=== PATIENT | female | born 1980 | race Caucasian/White ===

== ENCOUNTER 2022-03-12 13:32 | Outpatient (REF) | payer OTHER, SELFPAY ==
--- NOTE | ~2022-03-12 | XR_ITS ---
EXAMINATION: XR KNEE, LEFT CLINICAL INFORMATION: Pain COMPARISON: None TECHNIQUE: Four views of the left knee. FINDINGS: Bones and soft tissues are normal. No fracture or joint effusion. Alignment is anatomic. Joint spaces are well maintained. No abnormal soft tissue calcification. XR/XR knee LT 4V IMPRESSION: Unremarkable left knee.
== END 2022-03-12 13:33 | disposition home or self-care (01) ==
LOC: HO.HMGCX 13:32
PROVIDERS: PCP Internal Medicine; Visit Provider Internal Medicine
DX: M25.562 Pain in left knee (principal)
CPT/HCPCS: 73564

== ENCOUNTER 2022-03-14 10:08 | Outpatient (REF) | payer OTHER, SELFPAY ==
[2022-03-14 11:16] LABS: MANUAL DIFF FLAG NO
[2022-03-14 11:32] LABS: Basophils Percent Auto 0.3 % (0-2); Eosinophils Absolute Auto 0.3 X10*3/uL (0.0-0.4); Eosinophils Percent Auto 4.4 % (0-4); Hematocrit 41.5 % (37.0-47.0); Hemoglobin 14.1 g/dl (12.0-16.0); Imm Gran Abs Auto 0.02 X10*3/uL (0.00-0.03); Imm Gran Pct Auto 0.3 % (0.0-0.4); Lymphocytes Percent Auto 32.7 % (20-40); Mean Corpuscular Hemoglobin 29.6 pg (27.0-33.0); Mean Corpuscular Volume 87.2 fL (80.0-98.0); Mean Platelet Volume 9.2 fL (9.4-12.3); Monocytes Absolute Auto 0.3 X10*3/uL (0.1-1.2); Monocytes Percent Auto 4.4 % (2-11); Neutrophils Absolute Auto 3.5 x10*3/uL (2.0-8.3); Neutrophils Percent Auto 57.9 % (45-73); Platelet Count 340 X10*3/uL (160-400); Red Blood Count 4.76 X10*6/uL (4.20-5.50); Red Cell Distribution Width 13.9 % (11.0-16.0); White Blood Count 6.1 X10*3/uL (4.8-10.8)
[2022-03-14 12:08] LABS: Alanine Aminotransferase 18 U/L (0-31); Albumin Level 4.6 g/dL (3.5-5.0); Alkaline Phosphatase 70 U/L (39-117); Anion Gap 16 (12-20); Aspartate Amino Transferase 19 U/L (5-31); Blood Urea Nitrogen 11 mg/dL (9-16); Calcium 9.2 mg/dL (8.4-10.2); Carbon Dioxide 24 mmol/L (22-29); Chloride 105 mmol/L (96-108); Cholesterol 254 mg/dL; Estimated Glomerular Filt Rate > 60; Glucose Fasting 108 mg/dL (60-99); HDL Cholesterol 52 mg/dL; LDL Cholesterol Calculated 140 mg/dl; Potassium 4.1 mmol/L (3.3-5.1); Sodium 141 mmol/L (135-145); Total Protein 7.8 g/dL (6.5-8.0); Triglycerides 313 mg/dL
[2022-03-14 12:33] LABS: TSH reflex Free T4 1.81 uIU/mL (0.32-4.0)
== END 2022-03-14 10:09 | disposition home or self-care (01) ==
LOC: HO.HMGCLDS 10:08
PROVIDERS: PCP Internal Medicine; Visit Provider Internal Medicine
DX: Z00.01 Encounter for general adult medical examination with abnormal findings (principal); E66.9 Obesity, unspecified; Z82.49 Family history of ischemic heart disease and other diseases of the circulatory system
CPT/HCPCS: 36415; 80053; 80061; 82306; 84443; 85025

== ENCOUNTER 2022-04-04 10:28 | Outpatient (REF) | payer OTHER, SELFPAY ==
--- NOTE | ~2022-04-04 | MM_ITS ---
EXAMINATION: MM SCREENING DIGITAL BREAST TOMOSYNTHESIS, BILATERAL CLINICAL INFORMATION: Screening. Asymptomatic. Age 41. No prior breast imaging. No known family history breast cancer. The lifetime risk of breast cancer based on the Tyrer-Cuzick Model is 8%. COMPARISON: None (current study represents initial baseline exam). TECHNIQUE: Digital breast tomosynthesis is performed in both the craniocaudal and mediolateral oblique views along with computer-aided detection (CAD). Synthesized 2D images are generated from the tomosynthesis. FINDINGS: There are scattered areas of fibroglandular density (ACR BI-RADS breast composition Category b). There are no significant masses, abnormal calcifications, or other abnormalities. There are scattered bilateral benign punctate round calcifications as well as some loosely grouped benign coarse round and rim calcifications mid 8:00 left breast. The axilla and skin contours are unremarkable. MM/MM tomosynthesis screening BI IMPRESSION: No mammographic evidence of malignancy. ASSESSMENT: BI-RADS 2: Benign RECOMMENDATION: Routine annual mammography screening. This patient's information was entered into a reminder system with a target due date for their next mammogram.
== END 2022-04-04 10:29 | disposition home or self-care (01) ==
LOC: HO.MAMMO 10:28
PROVIDERS: PCP Internal Medicine; Visit Provider Internal Medicine
DX: Z12.31 Encounter for screening mammogram for malignant neoplasm of breast (principal)
CPT/HCPCS: 77063; 77067

== ENCOUNTER 2022-05-29 08:56 | Outpatient (REF) | payer OTHER, SELFPAY ==
[2022-05-31 11:34] LABS: HPV mRNA E6/E7 rflx Not Detected (Not Detected)
== END 2022-05-29 08:57 | disposition home or self-care (01) ==
LOC: HO.LNP 08:56
PROVIDERS: PCP Internal Medicine; Visit Provider Obstetrics & Gynecology
DX: Z01.419 Encounter for gynecological examination (general) (routine) without abnormal findings (principal)
CPT/HCPCS: 87624; 88142; 99212

== ENCOUNTER 2022-05-30 17:00 | Outpatient (RCR) | payer OTHER, SELFPAY ==
--- NOTE | 2022-04-03 18:10 | MHC.PT.EP ---
[facility] [place] Office [place] Office [place] Office [address] Kelsey Gil [address] [phone] F: [phone] F: [phone] F: [phone] F: [phone] Physical Therapy Plan of Care Date of Evaluation: Date of Surgery: Diagnosis: L knee pain Assessment: Patient is pleasant 41 y.o female who is referred to PT by Dr Arelis Serrano MD with Dx of L knee pain. Her PT Dx presents as knee sprain/strain with possible bursitis from compensations, is also showing very weak L quad strength with L hamstring dominance, cannot rule out internal derangement or meniscal tear at this time. Her impairments include pain, weakness, and decreased ROM. Her functional limitations include difficulty with gait of any distance, bend/squat, stair use, and caring for toddler. She will benefit from course of skilled PT to address aforementioned impairments and functional limitations. Frequency and Duration: The patient will be seen 2x/week for 4 weeks Short Term Goals: 2 weeks Patient demonstrates increased L knee flexion to 95 degrees to restore normalized gait pattern. Patient shows independence and consistency with HEP to self manage symptoms and reduce pain to 3/10. Electrical Logger Goals: 4 weeks Patient presents with increased L knee flexion 120 degrees to be able to perform squat to low chair. Patient presents with increased L knee quad strength 4+/5 to be able to perform reciprocal stair use. Treatment Plan: Modalities to reduce pain, spasms and effusion. Manual therapy to restore motion and function. Therapeutic exercise to improve strength and flexibility. Neuromuscular re-education for posture and balance. Therapeutic activities to return to functional activities of daily living. Electronically signed by: Karie Tan, PT, DPT Please sign and return to therapist. Thank you for your referral.
--- NOTE | 2022-06-07 13:17 | MHC.PT.DC ---
[facility] [place] Office [place] Office [address] [phone] F: [phone] F: [phone] F: [phone] F: [phone] Physical Therapy Discharge Report Diagnosis: L knee pain Date of Surgery: Date of Evaluation: 04/03/22 Date of Discharge: 06/07/22 Treatments to Date: 13 Cancellations to Date: 4 No Shows to Date: 0 Discharge Status: Independent with HEP Discharge Summary: Pt still with functional limitations and pain despite making good progress with strength. Pt understands that she should return to her doctor if pain continues to limit her functionally. Electronically signed by: Delmy Florez, PT, DPT, ATC Please sign and return to therapist. Thank you for your referral.
== END 2022-06-07 13:17 | disposition home or self-care (01) ==
LOC: HO.PTCHIC 17:00
PROVIDERS: PCP Internal Medicine; Visit Provider Internal Medicine
DX: M25.562 Pain in left knee (principal)
CPT/HCPCS: 97110; 97140; 97161

== ENCOUNTER 2022-06-21 08:18 | Outpatient (REF) | payer OTHER, SELFPAY ==
[2022-06-21 11:56] LABS: Cholesterol 231 mg/dL; Glucose Fasting 110 mg/dL (60-99); HDL Cholesterol 49 mg/dL; LDL Cholesterol Calculated 131 mg/dl; Triglycerides 255 mg/dL
[2022-06-21 12:08] LABS: Estimated Average Glucose 103 mg/dL; Hemoglobin A1c % 5.2 %
== END 2022-06-21 08:19 | disposition home or self-care (01) ==
LOC: HO.HMGCLDS 08:18
PROVIDERS: PCP Internal Medicine; Visit Provider Internal Medicine
DX: E66.01 Morbid (severe) obesity due to excess calories (principal); E78.2 Mixed hyperlipidemia; R73.01 Impaired fasting glucose; E55.9 Vitamin D deficiency, unspecified
CPT/HCPCS: 36415; 80061; 82306; 82947; 83036

== ENCOUNTER → 2022-09-18 10:43 | Outpatient (BNVA) | payer OTHER, SELFPAY | PROVIDERS: PCP Internal Medicine; Visit Provider Nurse Practitioner Family | DX: G47.19 Other hypersomnia (principal); R06.83 Snoring; E66.01 Morbid (severe) obesity due to excess calories; Z68.41 Body mass index [BMI] 40.0-44.9, adult | CPT/HCPCS: 99202 ==

== ENCOUNTER 2022-09-24 11:42 | Outpatient (AMB) | payer OTHER, SELFPAY ==
[2022-09-24 12:20] VITALS: BP 128/70; PULSE 96; O2SAT 99; BMI 43.5
--- NOTE | 2022-09-24 12:20 | MHC.PC.OV ---
Vital Signs 09/24/22 12:20 Height 5 ft 1 in Weight 230 lb 2 oz BMI 43.5 BP 128/70 Blood Pressure Location Rt brachial Position Sitting Pulse 96 Pulse Source Pulse Oximeter Pulse Oximetry (%) 99 Oxygen Delivery Method Room Air Intake Visit Reasons: f/u IFG, anxiety & depression Intake Note: pt is here to follow up for her anxiety and depression, IGF Allergies latex Adverse Reaction (Verified 12/21/22 12:10) hives Medication List - Last Reconciled 09/24/22 by Arelis Serrano MD cholecalciferol (vitamin D3) 25 mcg PO DAILY duloxetine 30 mg PO DAILY duloxetine 60 mg PO DAILY hydroxyzine HCl 50 mg PO BEDTIME loratadine (Claritin) 10 mg PO DAILY magnesium oxide 400 mg PO DAILY 30 days Tobacco use date assessed: 09/24/22 HPI f/u IFG, anxiety & depression HPI Details 41-year-old lady here today for follow-up on her prediabetes, anxiety and depression. Last hemoglobin A1c in June 2022 was within normal limits. She is currently taking duloxetine 90 mg daily and hydroxyzine 50 mg at bedtime which has been helping control her anxiety and depression . [facility], and home sleep study ordered. Patient also was given prescription for magnesium 400 mg once a day for leg cramp which has been helping Complains of intermittent episodes of lightheadedness accompanied by tinnitus in both ears and intermittent episodes of hearing loss. Would like to be checked for Meniere's disease. Has a painful skin lesion on her mid back that she would like to have removed, kept getting snagged on her bra [facility] Medical History Environmental and seasonal allergies Tinnitus of both ears Knee pain Excessive daytime sleepiness Loud snoring Vitamin D deficiency Impaired fasting glucose Mixed dyslipidemia Morbid obesity Hiatal hernia with gastroesophageal reflux Family history of premature CAD Annual visit for general adult medical examination with abnormal findings Anxiety and depression Surgical History H/O endoscopy H/O wisdom tooth extraction Family History Father Substance use disorder Mental health disorder Alcoholism Myocardial infarction acute, Onset Age: 55 Depression Maternal Uncle Testicular cancer Social History Household Members: Spouse and Children Housing: House Alcohol intake: current Alcohol intake frequency: does not drink Patient Tobacco Use Status: Never used Tobacco e-Cigarette/Vaping Use: Never Used Advance Directives: No Advance Directives Information Provided: Yes Current occupational status: unemployed and other Sexual orientation: Straight/Heterosexual Gender identity: Female Cognitive needs: No Hearing needs: No Vision needs: Yes Questionnaire PHQ-9 Over the last 2 weeks, how often have you been bothered by any of the following problems? 1. Little interest or pleasure in doing things: not at all 2. Feeling down, depressed, or hopeless: not at all 3. Trouble falling or staying asleep, or sleeping too much: several days 4. Feeling tired or having little energy: several days 5. Poor appetite or overeating: not at all 6. Feeling bad about yourself - or that you are a failure or have let yourself or your family down: not at all 7. Trouble concentrating on things, such as reading the newspaper or watching television: not at all 8. Moving or speaking so slowly that other people could have noticed. Or the opposite - being so fidgety or restless that you have been moving around a lot more than usual: not at all 9. Thoughts that you would be better off or of hurting yourself in some way: not at all Total score: 2 Depression Screening Interpretation: Negative 52685 - PHQ-9 Billing: Yes Source: Developed by Drs. Charles Gerardo, Horacio Colón and colleagues, with an educational ventura from [employer]. Thrive Questionnaire Date Thrive assessed: 06/26/22 SAMMY-7 AMB Questionnaire SAMMY-7 Date SAMMY - 7 assessed: 06/26/22 Source: Developed by Drs. Charles Gerardo, Horacio Colón and colleagues, with an educational ventura from [employer]. Review of Systems Const Denies body aches, Denies frequent falls, Denies headache(s) and Denies weakness Eyes Denies change in vision ENT Reports as per HPI, Denies headache(s), Denies nasal congestion, Denies nasal discharge and Denies sore throat Card Denies chest pain, Denies lightheadedness, Denies palpitations and Denies dyspnea Resp Denies chest congestion, Denies cough, Denies dyspnea and Denies wheezing GI Denies abdominal pain, Denies change in bowel habits and Denies heartburn Denies urinary frequency, Denies dysuria and Denies urinary urgency Musc Reports as per HPI Skin/Breast Reports as per HPI Neuro Reports as per HPI, Denies frequent falls, Denies headache(s) and Denies weakness Psych Reports no additional complaints Endo Denies polydipsia, Denies polyuria and Denies palpitations Aller/Immun Denies seasonal rhinorrhea and Denies wheezing Physical exam (Primary Care) Vital Signs: Last Vital Signs Pulse 96 09/24/22 12:20 BP 128/70 09/24/22 12:20 Pulse Ox 99 09/24/22 12:20 Oxygen Delivery Method Room Air 09/24/22 12:20 BMI result Body Mass Index 43.5 BMI Assessment/Plan discussion: High BMI High, discussed plan: lifestyle, weight reduction, dietary and physical activity Tobacco/Smoking Status: Tobacco use Status Tobacco use date assessed 09/24/22 09/24/22 12:26 Patient Tobacco Use Status Never used Tobacco 09/24/22 12:22 e-Cigarette/Vaping Use Never Used 09/24/22 12:22 Depression Screening Interpretation: Negative Thrive Assessment: Date of Thrive Assessment Date Thrive assessed 06/26/22 09/24/22 12:22 Const Other: Alert oriented x3, morbidly obese, no acute cardiorespiratory distress noted Orientation/consciousness: patient oriented x3 HENMT Ears: external ears normal, TM normal on the right and EAC's normal General nose exam: Normal external nose present and No nasal discharge present Face and sinus: Yes face symmetric Mouth: Normal oral and palatal mucosa present, oropharynx normal and moist mucous membranes Eyes General: appearance normal, both eyes and all related structures Neck Other: Supple, no lymphadenopathy, thyroid gland nonpalpable Resp Auscultation: clear to auscultation bilaterally Cardio Other: S1-S2 present regular rate and rhythm GI Inspection: Yes normal to inspection Palpation (GI): Soft to palpation, nontender, no guarding and no masses Skin Other: Large skin tag on mid back Neuro General: patient oriented x3, gait normal, tone normal, moves all extremities, Normal light touch and pain sensation, no focal motor deficits and CN's II-XI intact bilaterally Extrem General: Yes full ROM, Yes no joint enlargement, Yes no clubbing, cyanosis or edema, Yes no calf tenderness and Yes normal gait Psych Appearance: grossly normal and well kempt Mental Status: mental status grossly normal Speech and movement: Normal speech and movement present Affect: normal affect Attitude: cooperative Thought process: Normal thought process present Thought content: Normal thought content present Assessment and Plan Assessment & Plan (1) Impaired fasting glucose: Code(s): R73.01 - Impaired fasting glucose Plan: . Impaired glucose metabolism O2 at risk for developing diabetes mellitus type 2, as well as heart attack and stroke later on. Lifestyle changes at just weight loss, healthy eating habits, and regular exercise are important, and can prevent the progression to diabetes (2) Anxiety and depression: Code(s): F41.9 - Anxiety disorder, unspecified; F32.A - Depression, unspecified Plan: Continue with duloxetine (3) Mixed dyslipidemia: Code(s): E78.2 - Mixed hyperlipidemia Plan: Continue adherence to healthy eating habits, getting regular exercise. (4) Tinnitus of both ears: Code(s): H93.13 - Tinnitus, bilateral Plan: ENT consult ordered (5) Impaired hearing: Code(s): H91.90 - Unspecified hearing loss, unspecified ear Qualifiers: Hearing loss type: unspecified Laterality: bilateral Qualified Code(s): H91.93 - Unspecified hearing loss, bilateral Plan: ENT consult ordered (6) Intermittent lightheadedness: Code(s): R42 - Dizziness and giddiness (7) Skin lesion of back: Code(s): L98.9 - Disorder of the skin and subcutaneous tissue, unspecified Plan: Referred to general surgery for excision of skin tag Orders: Orders Hemoglobin A1c 11/20/22 R73.01 - Impaired fasting glucose, E78.2 - Mixed hyperlipidemia Lipid Panel 11/20/22 R73.01 - Impaired fasting glucose, E78.2 - Mixed hyperlipidemia Referrals Ear/Nose/Throat Referral H93.13 - Tinnitus, bilateral, H91.90 - Unspecified hearing loss, unspecified ear, R42 - Dizziness and giddiness General Surgery Referral L98.9 - Disorder of the skin and subcutaneous tissue, unspecified Coding Level of Care Code Est Pt Level 4 (46788) Diagnoses Impaired fasting glucose R73.01 Anxiety and depression F41.9; F32.A Mixed dyslipidemia E78.2 Tinnitus of both ears H93.13 Bilateral hearing loss, unspecified hearing loss type H91.93 Hearing loss type: unspecified Laterality: bilateral Intermittent lightheadedness R42 Skin lesion of back L98.9
== END 2022-09-24 13:06 | disposition home or self-care (01) ==
PROVIDERS: PCP Internal Medicine; Visit Provider Internal Medicine
DX: R73.01 Impaired fasting glucose (principal); F41.9 Anxiety disorder, unspecified; F32.A Depression, unspecified; E78.2 Mixed hyperlipidemia; H93.13 Tinnitus, bilateral; H91.93 Unspecified hearing loss, bilateral; R42 Dizziness and giddiness; L98.9 Disorder of the skin and subcutaneous tissue, unspecified
CPT/HCPCS: 99214

== ENCOUNTER 2022-10-01 09:21 | Outpatient (REF) | payer OTHER, SELFPAY | END 2022-10-01 09:22 | disposition home or self-care (01) | LOC: HO.LNP 09:21 | PROVIDERS: PCP Internal Medicine; Referring Provider Internal Medicine; Visit Provider Surgery | DX: I78.1 Nevus, non-neoplastic (principal) | CPT/HCPCS: 11401; 11402; 88305; 99202 ==

== ENCOUNTER → 2022-10-09 10:52 | Outpatient (BNVA) | payer OTHER, SELFPAY | PROVIDERS: PCP Internal Medicine; Visit Provider Surgery | DX: Z09 Encounter for follow-up examination after completed treatment for conditions other than malignant neoplasm (principal) | CPT/HCPCS: 99212 ==

== ENCOUNTER → 2022-10-11 09:10 | Outpatient (REF) | payer OTHER, SELFPAY | LOC: HO.SL 09:10 | PROVIDERS: PCP Internal Medicine; Visit Provider Nurse Practitioner Family | DX: G47.33 Obstructive sleep apnea (adult) (pediatric) (principal); E66.01 Morbid (severe) obesity due to excess calories; R06.83 Snoring | CPT/HCPCS: 95806 ==

== ENCOUNTER → 2022-11-11 20:30 | Outpatient (REF) | payer OTHER, SELFPAY | LOC: HO.SL 20:30 | PROVIDERS: PCP Internal Medicine; Visit Provider Nurse Practitioner Family | DX: G47.33 Obstructive sleep apnea (adult) (pediatric) (principal) | CPT/HCPCS: 95811 ==

== ENCOUNTER 2022-11-13 12:55 | Outpatient (AMB) | payer OTHER, SELFPAY ==
--- NOTE | 2022-11-13 12:59 | MHC.OFFWIV ---
Intake Vital Signs 11/13/22 13:03 BP 150/100 H Blood Pressure Location Rt brachial Position Sitting Pulse 96 Pulse Source Pulse Oximeter Temp 97.6 F Temp Source Temporal Artery Scan Pulse Oximetry (%) 97 Oxygen Delivery Method Room Air Intake Visit Reasons: EST/pain in back while breathing Intake Note: Patient here because over the past several days she has noticed some upper back pain when breathing. Patient Tobacco Use Status: Never used Tobacco Allergies latex Adverse Reaction (Verified 11/13/22 13:54) hives Medication List - Last Reconciled 11/13/22 by Redd Sheehan MD cholecalciferol (vitamin D3) 25 mcg PO DAILY duloxetine 30 mg PO DAILY duloxetine 60 mg PO DAILY hydroxyzine HCl 50 mg PO BEDTIME loratadine (Claritin) 10 mg PO DAILY magnesium oxide 400 mg PO DAILY 30 days Do you need a note to return to daycare/school/sports/work: No HPI EST/pain in back while breathing HPI Details 42-year-old female presents to the office for a sick visit. Patient is reporting pain in the upper back when she takes a deep breath. Symptoms of congestion and headache present. No fevers or chills. [facility] Medical History Annual visit for general adult medical examination with abnormal findings Anxiety and depression Excessive daytime sleepiness Family history of premature CAD Hiatal hernia with gastroesophageal reflux Impaired fasting glucose Knee pain Loud snoring Mixed dyslipidemia Morbid obesity Tinnitus of both ears Vitamin D deficiency Surgical History H/O endoscopy H/O wisdom tooth extraction Family History Father Substance use disorder Mental health disorder Alcoholism Myocardial infarction acute, Onset Age: 55 Depression Maternal Uncle Testicular cancer Social History Household Members: Spouse and Children Housing: House Alcohol intake: current Alcohol intake frequency: holidays/special occasions only Patient Tobacco Use Status: Never used Tobacco e-Cigarette/Vaping Use: Never Used Current occupational status: unemployed and other Sexual orientation: Straight/Heterosexual Gender identity: Female Cognitive needs: No Hearing needs: No Vision needs: Yes Physical Exam Vital Signs: Last Vital Signs Temp 97.6 F 11/13/22 13:03 Pulse 96 11/13/22 13:03 BP 150/100 H 11/13/22 13:03 Pulse Ox 97 11/13/22 13:03 Oxygen Delivery Method Room Air 11/13/22 13:03 Const General: cooperative and healthy appearing Nutritional Appearance: well nourished Orientation/consciousness: patient oriented x3 Limitations: no limitations HEENT Head: Yes normal to inspection Eyes General: appearance normal, both eyes and all related structures Neck Neck: Yes normal visual inspection Chest Chest palpation & inspection: normal palpation of entire chest wall Resp Effort & Inspection: normal respiratory effort Back/Spine/Pelvis Other: No spinal tenderness, no paraspinal spasm. Discomfort over the right scapula. Neuro General: patient oriented x3 Assessment & Plan Assessment & Plan (1) Upper back pain: Code(s): M54.9 - Dorsalgia, unspecified Plan: Chest x-ray was personally reviewed by me. Meloxicam called in. Blood pressure was slightly raised. Patient was notified of the same. Advised her to check her blood pressures periodically and follow-up with her primary care. Orders: Orders XR chest 2V 11/13/22 M54.9 - Dorsalgia, unspecified Medications: New meloxicam 15 mg PO DAILY 14 tabs 0RF Coding Level of Care Code Est Pt Level 4 (34972) Diagnoses Upper back pain M54.9
[2022-11-13 13:03] VITALS: BP 150/100; PULSE 96; TEMP 36.4; O2SAT 97
== END 2022-11-13 14:28 | disposition home or self-care (01) ==
PROVIDERS: PCP Internal Medicine; Visit Provider Internal Medicine
DX: M54.9 Dorsalgia, unspecified (principal)
CPT/HCPCS: 99214

== ENCOUNTER 2022-11-13 13:54 | Outpatient (REF) | payer OTHER, SELFPAY ==
--- NOTE | ~2022-11-13 | XR_ITS ---
EXAMINATION: XR CHEST CLINICAL INFORMATION: Back pain. COMPARISON: None available. TECHNIQUE: 2 views of the chest were obtained. FINDINGS: No significant abnormality is noted involving the heart, lungs, mediastinum, bony thorax or soft tissues. XR/XR chest 2V IMPRESSION: No acute cardiopulmonary process.
== END 2022-11-13 13:55 | disposition home or self-care (01) ==
LOC: HO.HMGCX 13:54
PROVIDERS: PCP Internal Medicine; Visit Provider Internal Medicine
DX: M54.9 Dorsalgia, unspecified (principal)
CPT/HCPCS: 71046

== ENCOUNTER 2022-11-23 15:49 | Outpatient (AMB) | payer OTHER, SELFPAY ==
--- NOTE | 2022-11-23 15:50 | AM.OFFWIN_ITS ---
Intake Vital Signs 11/23/22 15:51 Height 5 ft 1 in BP 130/90 H Blood Pressure Location Rt brachial Position Sitting Pulse 98 Pulse Source Pulse Oximeter Temp 96.2 F L Temp Source Temporal Artery Scan Pulse Oximetry (%) 100 Oxygen Delivery Method Room Air Intake Visit Reasons: EP Cut on RT pinky finger Intake Note: Pt is here c/o cutting her finger witha marcy can. pt requesting tdpa vaccine. Patient Tobacco Use Status: Never used Tobacco Allergies latex Adverse Reaction (Verified 11/25/22 10:03) hives Medication List - Last Reconciled 11/25/22 by Redd Sheehan MD cholecalciferol (vitamin D3) 25 mcg PO DAILY duloxetine 30 mg PO DAILY duloxetine 60 mg PO DAILY hydroxyzine HCl 50 mg PO BEDTIME loratadine (Claritin) 10 mg PO DAILY magnesium oxide 400 mg PO DAILY 30 days meloxicam 15 mg PO DAILY Do you need a note to return to daycare/school/sports/work: No HPI EP Cut on RT pinky finger HPI Details 42-year-old female presents to the office for a sick visit. Patient poked her right hand 5th digit with the marcy knife. Small wound which is not bleeding anymore. She would like a tetanus shot. [facility] Medical History Annual visit for general adult medical examination with abnormal findings Anxiety and depression Excessive daytime sleepiness Family history of premature CAD Hiatal hernia with gastroesophageal reflux Impaired fasting glucose Knee pain Loud snoring Mixed dyslipidemia Morbid obesity Tinnitus of both ears Vitamin D deficiency Surgical History H/O endoscopy H/O wisdom tooth extraction Family History Father Substance use disorder Mental health disorder Alcoholism Myocardial infarction acute, Onset Age: 55 Depression Maternal Uncle Testicular cancer Social History Household Members: Spouse and Children Housing: House Alcohol intake: current Alcohol intake frequency: holidays/special occasions only Patient Tobacco Use Status: Never used Tobacco e-Cigarette/Vaping Use: Never Used Current occupational status: unemployed and other Sexual orientation: Straight/Heterosexual Gender identity: Female Cognitive needs: No Hearing needs: No Vision needs: Yes Physical Exam Vital Signs: Last Vital Signs Temp 96.2 F L 11/23/22 15:51 Pulse 98 11/23/22 15:51 BP 130/90 H 11/23/22 15:51 Pulse Ox 100 11/23/22 15:51 Oxygen Delivery Method Room Air 11/23/22 15:51 Extrem Other: Hand: 5th digit: Tiny puncture wound on the volar surface. Assessment & Plan Assessment & Plan (1) Open wound, hand: Code(s): S61.409A - Unspecified open wound of unspecified hand, initial encounter Plan: Tetanus shot provided. Orders: Orders TDaP Immunization 11/23/22 Z23 - Encounter for immunization Coding Level of Care Code Est Pt Level 3 (20247) Diagnoses Open wound, hand S61.409A
[2022-11-23 15:51] VITALS: BP 130/90; PULSE 98; TEMP 35.7; O2SAT 100
== END 2022-11-23 17:00 | disposition home or self-care (01) ==
PROVIDERS: PCP Internal Medicine; Visit Provider Internal Medicine
DX: S60.946A Unspecified superficial injury of right little finger, initial encounter (principal); Z23 Encounter for immunization
CPT/HCPCS: 90471; 90715; 99213

== ENCOUNTER 2022-12-21 11:16 | Outpatient (AMB) | payer OTHER, SELFPAY ==
--- NOTE | 2022-12-21 11:53 | MHC.PC.OV ---
Vital Signs 12/21/22 12:02 Height 5 ft 1 in Weight 227 lb BMI 42.9 BP 126/80 Blood Pressure Location Lt brachial Position Sitting Pulse 92 Pulse Source Pulse Oximeter Pulse Oximetry (%) 99 Oxygen Delivery Method Room Air Intake Visit Reasons: 3 month follow up Intake Note: Pt is here today for her 3 months Allergies latex Adverse Reaction (Verified 12/21/22 12:10) hives Medication List - Last Reconciled 12/21/22 by Arelis Serrano MD cholecalciferol (vitamin D3) 25 mcg PO DAILY duloxetine 30 mg PO DAILY duloxetine 60 mg PO DAILY hydroxyzine HCl 50 mg PO BEDTIME loratadine (Claritin) 10 mg PO DAILY magnesium oxide 400 mg PO DAILY 30 days Tobacco use date assessed: 12/21/22 Dental Screening Dental Screen Date: 12/21/22 Did you have a dental visit in the last 12 months?: No Was dental information given to patient?: No HPI 3 month follow up HPI Details 42-year-old lady with pre diabetes, here today for follow-up. She has anxiety/ depression, currently controlled with duloxetine 90 mg daily, and occasional takes hydroxyzine as needed for anxiety attacks. Patient however complains of feeling very drowsy when taking itx. She has also been having nasal congestion and runny nose, not well controlled anymore with taking loratadine 10 mg daily. [facility] Medical History Annual visit for general adult medical examination with abnormal findings Anxiety and depression Environmental and seasonal allergies Excessive daytime sleepiness Family history of premature CAD Hiatal hernia with gastroesophageal reflux Impaired fasting glucose Knee pain Loud snoring Mixed dyslipidemia Morbid obesity Tinnitus of both ears Vitamin D deficiency Surgical History H/O endoscopy H/O wisdom tooth extraction Family History Father Substance use disorder Mental health disorder Alcoholism Myocardial infarction acute, Onset Age: 55 Depression Maternal Uncle Testicular cancer Social History Household Members: Spouse and Children Housing: House Alcohol intake: current Alcohol intake frequency: does not drink Patient Tobacco Use Status: Never used Tobacco Smoked in Last 30 Days: No e-Cigarette/Vaping Use: Never Used Use of substances other than those prescribed or required for medical reasons: No Advance Directives: No Advance Directives Information Provided: No Current occupational status: unemployed and other Sexual orientation: Straight/Heterosexual Gender identity: Female Cognitive needs: No Hearing needs: No Vision needs: Yes Questionnaire PHQ-9 Over the last 2 weeks, how often have you been bothered by any of the following problems? 1. Little interest or pleasure in doing things: not at all 2. Feeling down, depressed, or hopeless: not at all 3. Trouble falling or staying asleep, or sleeping too much: several days 4. Feeling tired or having little energy: several days 5. Poor appetite or overeating: not at all 6. Feeling bad about yourself - or that you are a failure or have let yourself or your family down: not at all 7. Trouble concentrating on things, such as reading the newspaper or watching television: not at all 8. Moving or speaking so slowly that other people could have noticed. Or the opposite - being so fidgety or restless that you have been moving around a lot more than usual: not at all 9. Thoughts that you would be better off or of hurting yourself in some way: not at all Total score: 2 Depression Screening Interpretation: Negative Source: Developed by Drs. Charles Gerardo, Negrita Kunz, Horacio Interiano and colleagues, with an educational ventura from [employer]. Thrive Questionnaire Date Thrive assessed: 12/21/22 SAMMY-7 AMB Questionnaire SAMMY-7 Date SAMMY - 7 assessed: 12/21/22 Feeling nervous, anxious, or on edge: 0 = Not at all Not being able to stop or control worryin = Not at all Worrying too much about different things: 1 = Several days Trouble relaxin = Not at all Being so restless that it is hard to sit still: 0 = Not at all Becoming easily annoyed or irritable: 0 = Not at all Feeling afraid as if something awful might happen: 0 = Not at all Total SAMMY-7 score (0-4 normal; 5-9 mild; 10-14 moderate; 15-21 severe): 1 Source: Developed by Drs. Charles Gerardo, Negrita Kunz, Horacio Interiano and colleagues, with an educational ventura from [employer]. Review of Systems Const Denies headache(s) and Denies weakness Eyes Denies change in vision ENT Denies headache(s), Denies nasal congestion, Denies nasal discharge and Denies sore throat Card Denies chest pain, Denies lightheadedness, Denies palpitations and Denies dyspnea Resp Denies chest congestion, Denies cough, Denies dyspnea and Denies wheezing GI Denies abdominal pain, Denies change in bowel habits and Denies heartburn Denies urinary frequency, Denies dysuria and Denies urinary urgency Neuro Denies headache(s) and Denies weakness Psych Reports no additional complaints Endo Denies polydipsia, Denies polyuria and Denies palpitations Aller/Immun Denies wheezing Physical exam (Primary Care) Vital Signs: Last Vital Signs Pulse 92 12/21/22 12:02 BP 126/80 12/21/22 12:02 Pulse Ox 99 12/21/22 12:02 Oxygen Delivery Method Room Air 12/21/22 12:02 BMI result Body Mass Index 42.9 BMI Assessment/Plan discussion: High BMI High, discussed plan: lifestyle, weight reduction, dietary and physical activity Tobacco/Smoking Status: Tobacco use Status Tobacco use date assessed 12/21/22 12/21/22 12:01 Patient Tobacco Use Status Never used Tobacco 12/21/22 11:54 e-Cigarette/Vaping Use Never Used 12/21/22 11:54 Depression Screening Interpretation: Negative Thrive Assessment: Date of Thrive Assessment Date Thrive assessed 06/26/22 12/21/22 11:54 Const Other: Alert oriented x3, morbidly obese, no acute cardiorespiratory distress noted Orientation/consciousness: patient oriented x3 HENMT Ears: external ears normal, TM's normal bilaterally and EAC's normal General nose exam: Normal external nose present and No nasal discharge present Face and sinus: Yes face symmetric Mouth: tongue normal, oropharynx normal and moist mucous membranes Eyes General: appearance normal, both eyes and all related structures Neck Other: Supple, no lymphadenopathy, thyroid gland nonpalpable Chest Breast/axilla palpation: normal palpation of the breasts and normal palpation of the axillae Resp Auscultation: clear to auscultation bilaterally Cardio Other: S1-S2 present regular rate and rhythm GI Inspection: Yes normal to inspection and Yes abdominal wall ecchymosis Palpation (GI): Soft to palpation, nontender, no guarding and no masses Neuro General: patient oriented x3, gait normal, tone normal, moves all extremities, Normal light touch and pain sensation, no focal motor deficits and CN's II-XI intact bilaterally Extrem General: Yes full ROM, Yes no joint enlargement, Yes no clubbing, cyanosis or edema, Yes no calf tenderness and Yes normal gait Psych Appearance: grossly normal and well kempt Mental Status: mental status grossly normal Speech and movement: Normal speech and movement present Affect: normal affect Attitude: cooperative Thought process: Normal thought process present Thought content: Normal thought content present Results AMB Hemoglobin A1c AMB Hemoglobin A1c 4.7 % Last Edit by Miracle Monreal CMA on 12/21/22 12:14 Results Reviewed Results Reviewed: Laboratory Last Values Hgb A1c (Clinic) 4.7 % (4.0-6.0) 12/21/22 12:01 Assessment and Plan Assessment & Plan (1) Impaired fasting glucose: Code(s): R73.01 - Impaired fasting glucose Plan: Hemoglobin A1c today is at 4.7% Your fasting blood sugars were elevated above 100 mg/dL. Impaired glucose metabolism O2 at risk for developing diabetes mellitus type 2, as well as heart attack and stroke later on. Lifestyle changes at just weight loss, healthy eating habits, and regular exercise are important, and can prevent the progression to diabetes (2) Anxiety and depression: Code(s): F41.9 - Anxiety disorder, unspecified; F32.A - Depression, unspecified Plan: Continue duloxetine 90 mg daily, and continue with hydroxyzine but dose decreased to 25 mg at bedtime as needed for acute anxiety attacks (3) Environmental and seasonal allergies: Code(s): J30.89 - Other allergic rhinitis Plan: Continue loratadine 10 mg daily, prescription sent for as Azelastine nasal spray, 1 spray per nostril twice a day as needed Orders: Orders AMB Hemoglobin A1c 12/21/22 R73.01 - Impaired fasting glucose Medications: New azelastine administer into each nostril 1 spray intranasal BID PRN 30 mL 0RF nasal congestion Changed From hydroxyzine HCl 50 mg PO BEDTIME 90 tabs 1RF To hydroxyzine HCl 25 mg PO BEDTIME PRN 90 tabs 1RF anxiety Refilled duloxetine 30 mg PO DAILY 90 caps 3RF Coding Level of Care Code Est Pt Level 4 (14510) Diagnoses Impaired fasting glucose R73.01 Anxiety and depression F41.9; F32.A Environmental and seasonal allergies J30.89
[2022-12-21 12:02] VITALS: BP 126/80; PULSE 92; O2SAT 99; BMI 42.9
== END 2022-12-21 12:21 | disposition home or self-care (01) ==
PROVIDERS: PCP Internal Medicine; Visit Provider Internal Medicine
DX: R73.01 Impaired fasting glucose (principal)
CPT/HCPCS: 83036; 99214

== ENCOUNTER 2022-12-21 14:49 | Emergency (ER) | payer OTHER, SELFPAY ==
--- NOTE | ~2022-12-21 | CT_ITS ---
EXAMINATION: CT ABDOMEN AND PELVIS WITHOUT CONTRAST CLINICAL INFORMATION: Left flank pain COMPARISON: None available. TECHNIQUE: Multidetector volumetric imaging was performed from the superior aspect of the liver through the pubic symphysis. Sagittal and coronal reformatted images were obtained on the technologist's workstation. This CT examination was performed using dose optimization techniques as appropriate, variously including the following: *Automated exposure control *Adjustment of mA and/or kV according to patient size (this includes techniques or standardized protocols for targeted exams where dose is matched to indication/reason for exam; i.e. extremities or head) *Use of iterative reconstruction technique DLP: 727 mGy-cm FINDINGS: LUNG BASES: The visualized lung bases are unremarkable. LIVER, GALLBLADDER, AND BILIARY TREE: The liver is normal in size, shape, and attenuation. No focal hepatic lesion or biliary ductal dilatation is present. The gallbladder is unremarkable with no evidence of radiopaque gallstones, gallbladder wall thickening, or obvious pericholecystic inflammatory changes. PANCREAS: Unremarkable. SPLEEN: Unremarkable. ADRENAL GLANDS: Unremarkable. KIDNEYS AND URETERS: The kidneys are normal in size, shape, and attenuation. No hydronephrosis, hydroureter, or calculi seen. No perinephric stranding. BLADDER: Unremarkable. GASTROINTESTINAL TRACT: Mild diverticulosis. No evidence of diverticulitis. The small and large bowel are unremarkable. The appendix is unremarkable. ABDOMINAL WALL: No significant hernia is appreciated. LYMPH NODES: Normal. VASCULAR: Unremarkable. PELVIC VISCERA: Unremarkable. OSSEOUS STRUCTURES: Unremarkable. CT/CT abdomen pelvis wo IV con IMPRESSION: Mild diverticulosis. No evidence of diverticulitis. No stone or hydronephrosis seen. Fleischner guidelines were followed.
--- NOTE | ~2022-12-21 | XR_ITS ---
EXAMINATION: XR HIP, LEFT CLINICAL INFORMATION: Sudden shooting pain COMPARISON: None available. TECHNIQUE: Two views of the left hip. Single view of the pelvis FINDINGS: No acute visible fracture or dislocation. Joint spaces and alignment are maintained. Soft tissues are unremarkable. XR/XR hip LT w PEL1V IMPRESSION: No acute visible fracture or dislocation.
--- NOTE | ~2022-12-21 | XR_ITS ---
EXAMINATION: XR LUMBOSACRAL SPINE CLINICAL INFORMATION: Pain COMPARISON: None available. TECHNIQUE: Three views of the lumbosacral spine. FINDINGS: There may be a transitional vertebral body segment or 6 lumbar-type vertebral bodies. For the purposes of this dictation, the first nonrib-bearing vertebral body is designated as L1 and the transitional segment designated inferiorly. There is sacralization of the bilateral transitional transverse processes. Bone alignment is normal. No fracture or dislocation. Disc spaces are normal. Paraspinal soft tissues are normal. XR/XR lumbar spine 2-3V IMPRESSION: Unremarkable examination.
[2022-12-21 15:00] VITALS: BP 192/125; PULSE 83; RESP 18; TEMP 36.7; O2SAT 98; BMI 42.9
--- NOTE | 2022-12-21 15:00 | ED.GENADULT ---
HPI - General Adult General Chief complaint: Abdominal Pain Stated complaint: sharp lower back pain to legs Time Seen by Provider: 12/21/22 16:13 Source: patient and RN notes reviewed Mode of arrival: ambulatory Limitations: no limitations History of Present Illness HPI narrative: Patient is a 42 year old female who presents to the ED today due to lower left back and leg pain. She reports that the pain started this morning and progressively intensified over the span of a couple of hours. She states that the pain starts at her lower left back and radiates down the outer hip and ends at her left knee. She experienced sciatica 15 years ago when she was with her second child and reports that the pain she experiences today is similar to the the pain she previously felt. She describes it as a pinching sensation and finds it difficult to walk. Patient denies any trauma, pushing, pulling, or lifting any heavy objects prior to the onset of her symptoms. She also denies taking any OTC medications or applying any topical gels to alleviate her symptoms. Patient denies any difficulty urinating or urinary frequency Related Data Home Medications Medication Instructions Recorded Confirmed cholecalciferol (vitamin D3) 25 25 mcg PO DAILY 05/29/22 11/25/22 mcg (1,000 unit) capsule loratadine 10 mg tablet (Claritin) 10 mg PO DAILY 09/18/22 11/25/22 Previous Rx's Medication Instructions Recorded magnesium oxide 400 mg PO DAILY 30 days #30 tabs 09/18/22 duloxetine 60 mg capsule,delayed 60 mg PO DAILY #90 caps 12/13/22 release azelastine 137 mcg (0.1 %) nasal 1 spray intranasal BID PRN nasal 12/21/22 spray aerosol congestion #30 mL dexamethasone 4 mg tablet 4 mg PO BID #6 tabs 12/21/22 duloxetine 30 mg capsule,delayed 30 mg PO DAILY #90 caps 12/21/22 release hydroxyzine HCl 25 mg tablet 25 mg PO BEDTIME PRN anxiety #90 12/21/22 tabs methocarbamol 500 mg tablet 500 mg PO QID PRN muscle spasm #20 12/21/22 tabs oxycodone 5 mg tablet 5 mg PO Q6H PRN severe pain (scale 12/21/22 score 7-10) #14 tabs Allergies Allergy/AdvReac Type Severity Reaction Status Date / Time latex AdvReac hives Verified 12/21/22 12:10 Review of Systems Constitutional: Constitutional: Denies fever(s) Cardiovascular: Cardiovascular: Denies chest pain and Denies dyspnea Respiratory: Respiratory: Denies dyspnea Gastrointestinal: Gastrointestinal: Denies abdominal pain Genitourinary: Genitourinary: Denies difficulty voiding Musculoskeletal: Musculoskeletal: Reports back pain and Reports radiating pain into limb PMFSH Past Medical History Medical History (Updated 12/21/22 @ 20:29 by Ramin Newton) Annual visit for general adult medical examination with abnormal findings Anxiety and depression Environmental and seasonal allergies Excessive daytime sleepiness Family history of premature CAD Hiatal hernia with gastroesophageal reflux Impaired fasting glucose Knee pain Loud snoring Mixed dyslipidemia Morbid obesity Tinnitus of both ears Vitamin D deficiency Surgical History (Updated 10/09/22 @ 11:34 by Juma Castillo MD) H/O endoscopy H/O wisdom tooth extraction Family History Family History Father Substance use disorder Mental health disorder Alcoholism Myocardial infarction acute, Onset Age: 55 Depression Maternal Uncle Testicular cancer Social History Social History Household Members: Spouse and Children Housing: House Alcohol intake: current Alcohol intake frequency: does not drink Patient Tobacco Use Status: Never used Tobacco Smoked in Last 30 Days: No e-Cigarette/Vaping Use: Never Used Use of substances other than those prescribed or required for medical reasons: No Advance Directives: No Advance Directives Information Provided: No Current occupational status: unemployed and other Sexual orientation: Straight/Heterosexual Gender identity: Female Cognitive needs: No Hearing needs: No Vision needs: Yes Physical Exam ED Vital Signs: Vital Signs - 24 hr 12/21/22 15:00 12/21/22 15:35 12/21/22 16:47 Temperature 98.0 F 98.7 F Pulse Rate 83 89 80 Respiratory Rate 18 18 16 Blood Pressure 192/125 H 204/115 H 166/102 H Pulse Oximetry 98 97 97 Oxygen Delivery Method Room Air Room Air Room Air 12/21/22 18:44 Temperature 98.8 F Pulse Rate 78 Respiratory Rate 16 Blood Pressure 148/109 H Pulse Oximetry 97 Oxygen Delivery Method Room Air BMI result Body Mass Index 42.9 Const General: healthy appearing, no acute distress, alert and awake Nutritional Appearance: well nourished Orientation/consciousness: patient oriented x3 [facility] Head: Yes normocephalic and Yes atraumatic Eyes Eyelids: Yes eyelids normal Conjunctivae: conjunctivae normal Sclerae: sclerae normal Corneas: corneas normal Pupils: Equal, round and reactive pupils present EOM: EOMs intact bilaterally Neck Neck: Yes full ROM Resp Effort & Inspection: normal respiratory effort, able to speak in complete sentences and not labored GI Inspection: No distended Palpation (GI): Soft to palpation, not firm, Tenderness to palpation present (GI) in the LLQ; not in the RLQ, not in the LUQ and not in the RUQ, no guarding and not rigid Back/Spine/Pelvis Other: Patient has left lumbar paraspinous tenderness. No vertebral tenderness, no step-off deformities. Positive straight leg raise on left Skin General skin exam: no rashes or lesions noted and elasticity normal Neuro General: patient oriented x3 Cranial nerves: Yes Equal, round and reactive pupils present and Yes Bilaterally intact EOM present Cognition (Neuro): normal cognition Extrem Other: Moving all extremities well without any obvious deformities Course Course Course Narrative: This is an RME: Additional HPI, ROS, PE not included below will be deferred to primary provider. This is a 41-smxy-phv-female, with a hx of sciatica, presenting to the emergency department with complaints of left lower back pain x 2 hours. Patient reports that she is unable to stand due to the pain. Endorsing nausea, not sure if it is due to pain. No urinary symptoms. VSS. Appears uncomfortable - BP 192/125. Left lower SI joint pain/hip Plan: Xray left hip ordered. Reevaluation(s) Reevaluation #1: Patient has a small amount of occult blood in the urine, a CT scan of the abdomen pelvis was ordered. The patient also in significant pain will treat with morphine IM Time: 18:38 Reevaluation #2: Patient reports she finally receive some relief after morphine IM. The patient is stable for discharge. Discussed all imaging results with the patient Time: 20:27 Medications Administered Discontinued Medications Generic Name Dose Route Start Last Admin Trade Name Freq PRN Reason Stop Dose Admin Dexamethasone 4 mg 12/21/22 16:40 12/21/22 16:50 Dexamethasone 4 Mg Tablet PO 12/21/22 16:41 4 mg ONCE ONE Administration Ketorolac Tromethamine 30 mg 12/21/22 16:40 12/21/22 16:50 Ketorolac Tromethamine 30 Mg/Ml Vial IM 12/21/22 16:41 30 mg ONCE ONE Administration Morphine Sulfate 4 mg 12/21/22 18:33 12/21/22 18:49 Morphine Sulfate 4 Mg/Ml Cartridge IM 12/21/22 18:34 4 mg ONCE ONE Administration Protocol Ondansetron HCl 4 mg 12/21/22 18:33 12/21/22 18:49 Ondansetron Odt 4 Mg Tab.Rapdis TRANSLINGU 12/21/22 18:34 4 mg ONCE ONE Administration Medical Decision Making Medical Decision Making MDM Narrative: 42-year-old female with history of sciatica presents for evaluation of left lower back pain that radiates into her left leg. X-ray of the hip was ordered in triage is unremarkable. Will add x-ray lumbar spine as she reports this has never been done. No warning flags to suggest cauda equina syndrome. Plan for analgesia and likely discharge Differential Diagnosis Differential Diagnoses: The differential diagnosis associated with the presentation includes Muscle strain Radiculopathy Sciatica Arthritis Spondylosis Lab Data Labs: Lab Results 12/21/22 12/21/22 Range/Units 16:51 16:51 Urine Color Yellow Urine Appearance Clear Urine pH 6.0 (5.0-9.0) Ur Specific [place] <= 1.005 (1.005-1.025) Urine Protein Negative (Neg-Trace) mg/dL Urine Glucose (UA) Negative (Negative) mg/dL Urine Ketones Negative (Negative) mg/dL Urine Blood Small (1+) H (Negative) Urine Nitrite Negative (Negative) Ur Leukocyte Esterase Negative (Negative) Urine RBC 0-2 (0-2) /HPF Urine WBC 0-5 (0-5) /HPF Ur Squamous Epith Cells 0-2 (0-2) /HPF Urine Bacteria None Seen (None Seen) Hyaline Casts 0-2 (0-2) /LPF Urine Test NEGATIVE (NEGATIVE) Independent Interpretation I performed an independent interpretation of an: Plain X-Ray (Normal left hip) Radiology Impression Discussion of test interpretation with radiology: I have reviewed the radiologist's reading. (No acute visible fracture or dislocation) Discharge Plan Discharge Clinical Impression: Acute back pain with sciatica Patient Disposition: Home, Self-Care Instructions: Acute Low Back Pain (ED) Additional Instructions: Your CT scan did not show any concerning findings. Your x-ray showed findings consistent with muscle spasms. You may use ibuprofen/Tylenol for pain Take oxycodone for severe, breakthrough pain. This may make you sleepy, did not drink alcohol or drive after taking it Use methocarbamol as needed for muscle spasms This may also make you sleepy Take dexamethasone twice daily for the next 3 days Prescriptions: New dexamethasone 4 mg tablet 4 mg PO BID Qty: 6 0RF oxycodone 5 mg tablet 5 mg PO Q6H PRN (Reason: severe pain (scale score 7-10)) Qty: 14 0RF Rx Instructions: Partial Fill upon patient request. methocarbamol 500 mg tablet 500 mg PO QID PRN (Reason: muscle spasm) Qty: 20 0RF No Action duloxetine 60 mg capsule,delayed release(DR/EC) 60 mg PO DAILY Qty: 90 1RF duloxetine 30 mg capsule,delayed release(DR/EC) 30 mg PO DAILY Qty: 90 3RF hydroxyzine HCl 25 mg tablet 25 mg PO BEDTIME PRN (Reason: anxiety) Qty: 90 1RF azelastine 137 mcg (0.1 %) aerosol,spray 1 spray intranasal BID PRN (Reason: nasal congestion) Qty: 30 0RF Rx Instructions: administer into each nostril cholecalciferol (vitamin D3) 25 mcg (1,000 unit) capsule 25 mcg PO DAILY loratadine [Claritin] 10 mg tablet 10 mg PO DAILY magnesium oxide 400 mg magnesium tablet 400 mg PO DAILY 30 Days Qty: 30 3RF
[2022-12-21 15:35] VITALS: BP 204/115; PULSE 89; RESP 18; O2SAT 97
--- NOTE | 2022-12-21 16:16 | PC.NURSE ---
Being seen by provider at this time Pt presents with left sided low back pain starting today into left hip and pelvis. Denies hematuria or urinary sx. States pain is worse with movement or walking. Skin pwd. pt reports 11/29, assisted from w/c to stretcher. Breathing even/unlabored. States BP elevated in triage however no h/o HBP, appears asymptomatic. Skin pwd
[2022-12-21 16:47] VITALS: BP 166/102; PULSE 80; RESP 16; TEMP 37.1; O2SAT 97
[2022-12-21] MEDS: dexAMETHasone 4 MG TABLET PO (16:50)
[2022-12-21] MEDS: Ketorolac Tromethamine 30 MG/ML VIAL IM (16:50)
--- NOTE | 2022-12-21 16:52 | MHC.EDTECH ---
PATIENT VITALS SIGN TAKEN AND URINE SAMPLE COLLECTED AND SENT TO LAB .
[2022-12-21 17:09] LABS: Appearance Urine Clear; Color Urine Yellow; Glucose Urine UA Negative (Negative); Leukocyte Esterase Urine Negative (Negative); Nitrite Urine Negative (Negative); Specific Gravity - Urine <= 1.005 (1.005-1.025); UMIC TRIGGER UACC YES; Urine Blood Small (1+) (Negative); Urine Ketones Negative (Negative); Urine Protein Negative (Neg-Trace)
[2022-12-21 17:28] LABS: Bacteria Urine None Seen (None Seen); Hyaline Casts Urine 0-2 /LPF (0-2); RBC Urine 0-2 /HPF (0-2); Squamous Epithelial Cell Urine 0-2 /HPF (0-2); WBC Urine 0-5 /HPF (0-5)
[2022-12-21 18:44] VITALS: BP 148/109; PULSE 78; RESP 16; TEMP 37.1; O2SAT 97
[2022-12-21] MEDS: Morphine Sulfate 4 MG/ML CARTRIDGE IM (18:49)
[2022-12-21] MEDS: Ondansetron ODT 4 MG TAB.RAPDIS TRANSLINGU (18:49)
[2022-12-21 18:59] LABS: UPreg QC Valid YES; Urine Pregnancy NEGATIVE (NEGATIVE)
--- NOTE | 2022-12-21 19:21 | PC.NURSE ---
pt reassessed for pain, reported 7/10 pain, increased with movement
--- NOTE | 2022-12-21 20:37 | PC.NURSE ---
pt assessed at d/c, pt reported tolerable pain, ambulatory gait steady
== END 2022-12-21 20:38 | disposition home or self-care (01) ==
PROVIDERS: Physician Assistant; Emergency Provider Emergency Medicine
DX: M54.42 Lumbago with sciatica, left side (principal); M25.552 Pain in left hip; M79.605 Pain in left leg; R10.2 Pelvic and perineal pain; Z79.899 Other long term (current) drug therapy
CPT/HCPCS: 72100; 73502; 74176; 81001; 81025; 96372; 99284; J1885; J2270; J8540

== ENCOUNTER 2022-12-31 08:36 | Emergency (ER) | payer OTHER, SELFPAY ==
--- NOTE | ~2022-12-31 | XR_ITS ---
EXAMINATION: XR KNEE, LEFT CLINICAL INFORMATION: Status post slip and fall. COMPARISON: 03/12/2022 TECHNIQUE: Two views of the left knee. FINDINGS: Alignment is anatomic. Joint spaces are maintained. Tiny medial compartment and retropatellar osteophytes. No displaced fracture. No significant joint effusion. XR/XR knee LT 2V IMPRESSION: No acute abnormality.
[2022-12-31 08:39] VITALS: BP 214/119; PULSE 74; RESP 18; TEMP 36.9; O2SAT 99; BMI 42.9
--- NOTE | 2022-12-31 11:43 | ED_ITS ---
HPI - Extremity Injury (Lower) General Chief Complaint: Extremity Injury, Lower Stated Complaint: l knee inj Time Seen by Provider: 12/31/22 11:39 Source: patient Mode of arrival: ambulatory Limitations: no limitations History of Present Illness HPI Narrative: 42-year-old female presents to the emergency department with left knee pain status post tripping over a infant's toys this morning, may have twisted her k nee however not sure. Patient reports pain worse with movement better at rest. Endorses pain but denies instability when ambulating. Reports previous sprain to L knee a few years ago. Also reporting L flank and hip pain but states she has a hx of sciatica and that the pain feels similar to previous exacerbations. Denies head strike, loss of consciousness, not on blood thinners. no urinary/bowel incontinence/ retention, saddle paresthesias, weakness, fevers, chills. Related Data Home Medications Medication Instructions Recorded Confirmed cholecalciferol (vitamin D3) 25 25 mcg PO DAILY 05/29/22 11/25/22 mcg (1,000 unit) capsule loratadine 10 mg tablet (Claritin) 10 mg PO DAILY 09/18/22 11/25/22 Previous Rx's Medication Instructions Recorded magnesium oxide 400 mg PO DAILY 30 days #30 tabs 09/18/22 duloxetine 60 mg capsule,delayed 60 mg PO DAILY #90 caps 12/13/22 release azelastine 137 mcg (0.1 %) nasal 1 spray intranasal BID PRN nasal 12/21/22 spray aerosol congestion #30 mL dexamethasone 4 mg tablet 4 mg PO BID #6 tabs 12/21/22 duloxetine 30 mg capsule,delayed 30 mg PO DAILY #90 caps 12/21/22 release hydroxyzine HCl 25 mg tablet 25 mg PO BEDTIME PRN anxiety #90 12/21/22 tabs methocarbamol 500 mg tablet 500 mg PO QID PRN muscle spasm #20 12/21/22 tabs oxycodone 5 mg tablet 5 mg PO Q6H PRN severe pain (scale 12/21/22 score 7-10) #14 tabs ketorolac 10 mg tablet 10 mg PO TID PRN pain 5 days #15 12/31/22 tabs Allergies Allergy/AdvReac Type Severity Reaction Status Date / Time latex AdvReac hives Verified 12/21/22 12:10 Review of Systems Review of Systems: Constitutional : No Weight loss, No Fever, No Chills, No Fatigue, No Malaise ENT/Mouth : No sore throat, No Rhinorrhea Eyes: No Eye Pain, No Swelling, No Redness Cardiovascular : No Chest Pain, No SOB, No Dyspnea on Exertion, No Orthopnea, No Edema, No Palpitations Respiratory : No Cough, No Sputum, No Wheezing Gastrointestinal : No Nausea, No Vomiting, No Diarrhea, No Constipation, No abdominal Pain, No Hematochezia, No Melena Genitourinary : No Dysuria, No Urinary Frequency, No Hematuria, Musculoskeletal : + joint pain, No Myalgias, + Joint Swelling Skin : No Skin Lesions, No rash Neuro : No Weakness, No Numbness, No Dizziness, No Headache Psych : No Anxiety/Panic, No Depression All other systems reviewed and are negative Yes all other systems are reviewed and are negative [facility] Past Medical History Attestation statement: The following information was validated with the patient. Source: old records reviewed and nursing notes reviewed Medical History Annual visit for general adult medical examination with abnormal findings Anxiety and depression Environmental and seasonal allergies Excessive daytime sleepiness Family history of premature CAD Hiatal hernia with gastroesophageal reflux Impaired fasting glucose Knee pain Loud snoring Mixed dyslipidemia Morbid obesity Tinnitus of both ears Vitamin D deficiency Surgical History H/O endoscopy H/O wisdom tooth extraction Family History Family History Father Substance use disorder Mental health disorder Alcoholism Myocardial infarction acute, Onset Age: 55 Depression Maternal Uncle Testicular cancer Social History Social History Household Members: Spouse and Children Housing: House Alcohol intake: current Alcohol intake frequency: does not drink Patient Tobacco Use Status: Never used Tobacco e-Cigarette/Vaping Use: Never Used Advance Directives: No Advance Directives Information Provided: Yes Current occupational status: unemployed and other Sexual orientation: Straight/Heterosexual Gender identity: Female Cognitive needs: No Hearing needs: No Vision needs: Yes Physical Exam Vital Signs: Vital Signs: Last Vital Signs Temp 98.9 F 12/31/22 12:34 Pulse 74 09/11/23 12:34 Resp 18 12/31/22 12:34 BP 193/103 H 12/31/22 12:34 Pulse Ox 100 12/31/22 12:34 O2 Del Method Room Air 12/31/22 12:34 BMI result Body Mass Index 42.9 vss Appearance: Alert.? Oriented X3.? No acute distress.? Head: Normocephalic, atraumatic, no step-offs or deformities Eyes: Pupils equal, round and reactive to light.? CVS: Normal heart rate and rhythm.? Pulses normal.? Respiratory: No respiratory distress.? Breath sounds normal.? Abdomen: Soft and nontender.? Skin: Skin warm and dry.? Normal skin color.? Normal skin turgor.? Extremities: No lower extremity edema.? No calf ttp. 5/5 strength to bilateral upper and lower extremities + No acute overlying skin changes, no effusion noted, TTP along superior and lateral aspect of the patella, +valgus and varus, +pain with anterior drawer though no laxity. +posterior tibialis, anterior tibialis and dorsalis pedis pulses b/l. Full ROM of RLE and upper extremities b/l however unable to assess ROM of L knee secondary to pain. Full ROM of L ankle, neurovascularly intact Neuro: Oriented X 3.? No motor deficit.? No sensory deficit. CN 2-12 intact Course Reevaluation(s) Reevaluation #1: patient was given crutches, Chaim wrap, Toradol. Will go home with Toradol. Educated patient on diagnosis and treatment plan, answered all question, patient verbalizes understanding. At this time patient will be discharged home, advised to return with new or worsening symptoms. Educated on worrisome signs and symptoms and when to return. At this time I feel comfortable discharge home. Time: 13:18 Medications Administered Discontinued Medications Generic Name Dose Route Start Last Admin Trade Name Freq PRN Reason Stop Dose Admin Ketorolac Tromethamine 30 mg 12/31/22 12:09 12/31/22 12:24 Ketorolac Tromethamine 15 Mg/Ml Vial IM 12/31/22 12:10 30 mg ONCE ONE Administration Medical Decision Making Medical Decision Making [facility] Narrative: 1145 42 year old female presents w/ L knee pain PE: No acute overlying skin changes, no effusion noted, TTP along superior and lateral aspect of the patella, +valgus and varus, +pain with anterior drawer though no laxity. +posterior tibialis, anterior tibialis and dorsalis pedis pulses b/l. Full ROM of RLE and upper extremities b/l however unable to assess ROM of L knee secondary to pain. Full ROM of L ankle, neurovascularly intact Likely sprain/ strain no signs of fx or dislocations. no signs of nv compromise or threat to limb. Plan- xray Differential Diagnosis Differential Diagnoses: The differential diagnosis associated with the presentation includes Likely sprain/ strain no signs of fx or dislocations. no signs of nv compromise or threat to limb. Admission/Observation Consideration of admission/observation: Escalation of care including admission/observation considered Independent Interpretation I performed an independent interpretation of an: Plain X-Ray (XR/XR knee LT 2V IMPRESSION: No acute abnormality.) Radiology Impression Discussion of test interpretation with radiology: I have reviewed the radiologist's reading. Prescription Management I considered prescription management with: Pain Medication Critical Care Time Critical Care Time Critical Care Time: No Discharge Plan Discharge Clinical Impression: Sciatica, Strain of left knee Patient Disposition: Home, Self-Care Instructions: Crutch Instructions (ED), Sciatica (ED), Back Pain (ED), R.I.C.E. Treatment (ED) Additional Instructions: Take your medications as prescribed. If you were prescribed antibiotics today, it is important that you take your medication to their entirety, do not skip any doses, do not finish them early. Follow-up with your primary care provider this week. Return to the emergency department with new or worsening symptoms. Such as fevers, chills, chest pain, shortness of breath, nausea, vomiting, dizziness, headache, vision changes, lethargy In case of emergency call 911 Toradol has been sent to your pharmacy, you tolerated this well in the department. Please take this as prescribed do not take this with ibuprofen, or other NSAIDs, do not mix this with alcohol. Side effects of this medication including increased risk for bleeding and possible kidney injury. Prescriptions: New ketorolac 10 mg tablet 10 mg PO TID PRN (Reason: pain) 5 Days Qty: 15 0RF No Action duloxetine 60 mg capsule,delayed release(DR/EC) 60 mg PO DAILY Qty: 90 1RF dexamethasone 4 mg tablet 4 mg PO BID Qty: 6 0RF oxycodone 5 mg tablet 5 mg PO Q6H PRN (Reason: severe pain (scale score 7-10)) Qty: 14 0RF Rx Instructions: Partial Fill upon patient request. methocarbamol 500 mg tablet 500 mg PO QID PRN (Reason: muscle spasm) Qty: 20 0RF duloxetine 30 mg capsule,delayed release(DR/EC) 30 mg PO DAILY Qty: 90 3RF hydroxyzine HCl 25 mg tablet 25 mg PO BEDTIME PRN (Reason: anxiety) Qty: 90 1RF azelastine 137 mcg (0.1 %) aerosol,spray 1 spray intranasal BID PRN (Reason: nasal congestion) Qty: 30 0RF Rx Instructions: administer into each nostril cholecalciferol (vitamin D3) 25 mcg (1,000 unit) capsule 25 mcg PO DAILY loratadine [Claritin] 10 mg tablet 10 mg PO DAILY magnesium oxide 400 mg magnesium tablet 400 mg PO DAILY 30 Days Qty: 30 3RF Referrals: Arelis Serrano MD [Primary Care Provider] - 2 days Stand Alone Forms: Work/School Release
[2022-12-31] MEDS: Ketorolac Tromethamine 15 MG/ML VIAL 30 MG IM (12:24)
[2022-12-31 12:34] VITALS: BP 193/103; PULSE 74; RESP 18; TEMP 37.2; O2SAT 100
== END 2022-12-31 13:43 | disposition home or self-care (01) ==
PROVIDERS: Emergency Provider Student in an Organized Health Care Education/Training Program; PCP Internal Medicine
DX: M54.42 Lumbago with sciatica, left side (principal); M25.562 Pain in left knee; Z79.899 Other long term (current) drug therapy
CPT/HCPCS: 73560; 96372; 99283; 99284; J1885

== ENCOUNTER 2023-03-19 09:25 | Outpatient (AMB) | payer OTHER, SELFPAY ==
[2023-03-19 09:30] VITALS: BP 120/84; PULSE 85; O2SAT 98; BMI 43.5
--- NOTE | 2023-03-19 09:30 | MHC.OFFVIS ---
Intake Vital Signs 03/19/23 09:30 Height 5 ft 1 in Weight 230 lb BMI 43.5 BP 120/84 Blood Pressure Location Rt brachial Position Sitting Pulse 85 Pulse Source Pulse Oximeter Pulse Oximetry (%) 98 Oxygen Delivery Method Room Air Intake Visit Reasons: 2m follow up snoring/Confirmed Intake Note: Pt presents to the office today for a 2 month follow up for snoring. Allergies latex Adverse Reaction (Verified 03/19/23 09:30) hives HPI HPI Comments History of Present Illness Details 42 y/o female patient presents for follow up of sleep study. The home sleep study result was moderate degree of sleep apnea. The AHI was 16/hr and oxygen ellis was 83%. Pt underwent titration study and started CPAP at [id number]. The CPAP compliance and therapy response (02/17/23-03/18/23) reviewed. She is on CPAP at [id number]. The usage days 100% and the average usage hours 9 hrs 40 min. The AHI was 1.2/hr. Pt reports she can sleeps about 10 hrs. She still toss and turns, it is more related to nasal congestion. But her snoring has resolved with CPAP. She feels more rested and having less migraine. Magnesium also helped for migraine and legs cramping. [facility] Medical History Environmental and seasonal allergies Tinnitus of both ears Knee pain Excessive daytime sleepiness Loud snoring Vitamin D deficiency Impaired fasting glucose Mixed dyslipidemia Morbid obesity Hiatal hernia with gastroesophageal reflux Family history of premature CAD Annual visit for general adult medical examination with abnormal findings Anxiety and depression Surgical History H/O endoscopy H/O wisdom tooth extraction Family History Father Substance use disorder Mental health disorder Alcoholism Myocardial infarction acute, Onset Age: 55 Depression Maternal Uncle Testicular cancer Household Members: Spouse and Children Housing: House Alcohol intake: current Alcohol intake frequency: does not drink Patient Tobacco Use Status: Never used Tobacco e-Cigarette/Vaping Use: Never Used Current occupational status: unemployed and other Sexual orientation: Straight/Heterosexual Gender identity: Female Cognitive needs: No Hearing needs: No Vision needs: Yes Review of Systems Const All systems reviewed & are unremarkable except as noted in HPI and below ENT Reports Normal hearing present Neuro Reports Normal hearing present Physical Exam Vital Signs: Last Vital Signs Pulse 85 03/19/23 09:30 BP 120/84 03/19/23 09:30 Pulse Ox 98 03/19/23 09:30 Oxygen Delivery Method Room Air 03/19/23 09:30 BMI result Body Mass Index 43.5 Const General: cooperative Nutritional Appearance: obese Orientation/consciousness: patient oriented x3 Neck Neck: Yes full ROM and Yes supple Resp Effort & Inspection: normal respiratory effort and able to speak in complete sentences Neuro General: patient oriented x3 and gait normal Cranial nerves: Yes Bilaterally intact EOM present, Yes Normal facial strength present, Yes Midline tongue present, Yes Symmetric palate elevation present, Yes Normal hearing present, Yes Ability to bilaterally rotate head present and Yes Ability to bilaterally elevate shoulders present Cognition (Neuro): normal cognition Gait exam (Neuro): Normal gait present Motor exam (neuro): 5/5 motor strength present throughout, Pronator motor function not present and no tremor noted Psych Appearance: grossly normal Mental Status: mental status grossly normal Speech and movement: Normal speech and movement present Affect: normal affect Attitude: cooperative Assessment & Plan Assessment & Plan (1) DARON (obstructive sleep apnea): Comment: Moderate degree of sleep apnea. The AHI was 16/hr and oxygen ellis was 83% Code(s): G47.33 - Obstructive sleep apnea (adult) (pediatric) Plan Continue to use CPAP at [id number] as patient experiences good clinical effects, no snoring and rested sleep. Stressed compliance, use CPAP nightly and more than 4 hrs. Wt reduction adivsed. Continue to take magnesium 400 mg qHS. Medications: Refilled magnesium oxide 400 mg PO DAILY 30 days 30 tabs 3RF Coding Level of Care Code Est Pt Level 3 (71163) Diagnoses DARON (obstructive sleep apnea) G47.33
== END 2023-03-19 09:58 | disposition home or self-care (01) ==
PROVIDERS: PCP Internal Medicine; Visit Provider Nurse Practitioner Family
DX: G47.33 Obstructive sleep apnea (adult) (pediatric) (principal)
CPT/HCPCS: 99213

== ENCOUNTER → 2023-03-19 09:25 | Outpatient (BNVA) | payer OTHER, SELFPAY | PROVIDERS: PCP Internal Medicine; Visit Provider Nurse Practitioner Family | DX: G47.33 Obstructive sleep apnea (adult) (pediatric) (principal) | CPT/HCPCS: 99212 ==

== ENCOUNTER 2023-03-25 10:56 | Outpatient (AMB) | payer OTHER, SELFPAY ==
--- NOTE | 2023-03-25 11:07 | MHC.PC.OV ---
Vital Signs 03/25/23 11:08 Height 5 ft 1 in Weight 232 lb 8 oz BMI 43.9 BP 160/100 H Blood Pressure Location Lt brachial Position Sitting Pulse 94 Pulse Source Pulse Oximeter Pulse Oximetry (%) 98 Oxygen Delivery Method Room Air Intake Visit Reasons: Annual PE Intake Note: pt is here for her Annual PE Is last menstrual period known: Yes Last menstrual period: 03/14/23 Allergies latex Adverse Reaction (Verified 03/25/23 11:30) hives Medication List - Last Reconciled 03/25/23 by Arelis Serrano MD azelastine 1 spray intranasal BID PRN cholecalciferol (vitamin D3) 25 mcg PO DAILY duloxetine 30 mg PO DAILY duloxetine 60 mg PO DAILY hydroxyzine HCl 25 mg PO BEDTIME PRN loratadine (Claritin) 10 mg PO DAILY magnesium oxide 400 mg PO DAILY 30 days Tobacco use date assessed: 03/25/23 Dental Screening Dental Screen Date: 03/25/23 Did you have a dental visit in the last 12 months?: No Did you have a dental problem in the last 6 months where you did not have access to dental care?: No Was dental information given to patient?: No HPI Annual PE HPI Details 42-year-old lady here today for physical exam. She has environmental allergies, has obstructive sleep apnea, impaired fasting glucose, history of mixed dyslipidemia, morbid obesity, and GERD with hiatal hernia. She currently takes duloxetine 90 mg daily and hydroxyzine as needed for anxiety depression which has been helping. Blood pressure today is elevated at 1 60/100, but patient denies any headache, no chest pain or shortness of breath, no lightheadedness. She has no particular diet that she follows and does not get any regular exercise. She is up-to-date with her screening mammogram done last March 2022, has an appointment for a repeat later this month. She also sees Dr. Catherine for her routine Pap and pelvic exam, last seen earlier this year. Complains of decreasing hearing in both ears, accompanied by tinnitus, would like a referral to have hearing checked, [facility] Medical History (Updated 03/25/23 @ 11:55 by Arelis Serrano MD) Decreased hearing of both ears Environmental and seasonal allergies Tinnitus of both ears Knee pain Excessive daytime sleepiness Loud snoring Vitamin D deficiency Impaired fasting glucose Mixed dyslipidemia Morbid obesity Hiatal hernia with gastroesophageal reflux Family history of premature CAD Annual visit for general adult medical examination with abnormal findings Anxiety and depression Surgical History (Updated 03/25/23 @ 11:55 by Arelis Serrano MD) H/O endoscopy H/O wisdom tooth extraction Family History Father Substance use disorder Mental health disorder Alcoholism Myocardial infarction acute, Onset Age: 55 Depression Maternal Uncle Testicular cancer Social History Household Members: Spouse and Children Housing: House Alcohol intake: current Alcohol intake frequency: does not drink Patient Tobacco Use Status: Never used Tobacco e-Cigarette/Vaping Use: Never Used Current occupational status: unemployed and other Sexual orientation: Straight/Heterosexual Gender identity: Female Cognitive needs: No Hearing needs: No Vision needs: Yes Female Reproductive History Menstrual Date of last menstrual period: 03/14/23 Questionnaire Thrive Questionnaire Date Thrive assessed: 12/21/22 SAMMY-7 AMB Questionnaire SAMMY-7 Date ASMMY - 7 assessed: 12/21/22 Source: Developed by Drs. Charles Gerardo, Negrita Kunz, Horacio Interiano and colleagues, with an educational ventura from [employer]. Review of Systems Const Denies headache(s) and Denies weakness Eyes Denies change in vision ENT Denies headache(s), Denies nasal congestion, Denies nasal discharge and Denies sore throat Card Denies chest pain, Denies lightheadedness, Denies palpitations and Denies dyspnea Resp Denies chest congestion, Denies cough, Denies dyspnea and Denies wheezing GI Denies abdominal pain, Denies change in bowel habits and Denies heartburn Denies urinary frequency, Denies dysuria and Denies urinary urgency Musc Reports no additional complaints Skin/Breast Denies breast pain, Denies breast mass, Denies lesions and Denies rash Neuro Denies headache(s) and Denies weakness Psych Reports no additional complaints Endo Denies polydipsia, Denies polyuria and Denies palpitations Ricardo/Lymph Reports no additional complaints Aller/Immun Denies wheezing Physical exam (Primary Care) Vital Signs: Last Vital Signs Pulse 94 03/25/23 11:08 BP 160/100 H 03/25/23 11:08 Pulse Ox 98 03/25/23 11:08 Oxygen Delivery Method Room Air 03/25/23 11:08 BMI result Body Mass Index 43.9 BMI Assessment/Plan discussion: High BMI High, discussed plan: lifestyle, weight reduction, dietary and physical activity Tobacco/Smoking Status: Tobacco use Status Tobacco use date assessed 03/25/23 03/25/23 11:16 Patient Tobacco Use Status Never used Tobacco 03/25/23 11:08 e-Cigarette/Vaping Use Never Used 03/25/23 11:08 Thrive Assessment: Date of Thrive Assessment Date Thrive assessed 12/21/22 03/25/23 11:08 Const Other: Alert oriented x3, morbidly obese, no acute cardiorespiratory distress noted Orientation/consciousness: patient oriented x3 HENMT Ears: external ears normal, TM's normal bilaterally and EAC's normal General nose exam: Normal external nose present and No nasal discharge present Face and sinus: Yes face symmetric Mouth: tongue normal, oropharynx normal and moist mucous membranes Eyes General: appearance normal, both eyes and all related structures Neck Other: Supple, no lymphadenopathy, thyroid gland nonpalpable Chest Breast/axilla palpation: normal palpation of the breasts and normal palpation of the axillae Resp Auscultation: clear to auscultation bilaterally Cardio Other: S1-S2 present regular rate and rhythm GI Inspection: Yes normal to inspection and Yes abdominal wall ecchymosis Palpation (GI): Soft to palpation, nontender, no guarding and no masses General: Yes no CVA tenderness and Yes deferred (Sees [facility], currently up-to-date with her Pap and pelvic exam) Back/Spine/Pelvis Back: no CVA tenderness and No back tenderness Skin General skin exam: no rashes or lesions noted Neuro General: patient oriented x3, gait normal, tone normal, moves all extremities, Normal light touch and pain sensation, no focal motor deficits and CN's II-XI intact bilaterally Extrem General: Yes full ROM, Yes no joint enlargement, Yes no clubbing, cyanosis or edema, Yes no calf tenderness and Yes normal gait Psych Appearance: grossly normal and well kempt Mental Status: mental status grossly normal Speech and movement: Normal speech and movement present Affect: normal affect Attitude: cooperative Thought process: Normal thought process present Thought content: Normal thought content present Assessment and Plan Assessment & Plan (1) Annual visit for general adult medical examination with abnormal findings: Code(s): Z00.01 - Encounter for general adult medical examination with abnormal findings Plan: Will check appropriate labs. Recommended dental visit every 6 months and regular eye exams, at least every 2 years. Take adequate calcium in diet and vitamin-D 3 at 2000 IU per cap once a day, in addition to weight-bearing exercises to help maintain good muscle tone and weight control. Instructed to do self-breast exam, and continue to get yearly mammogram, . She is up-to-date with her flu shot COVID vaccination and Tdap. Goes to [facility] for her routine Pap and pelvic exam which is currently up-to-date (2) Tinnitus of both ears: Code(s): H93.13 - Tinnitus, bilateral Plan: Referral ordered for speech and hearing center in [place] (3) Decreased hearing of both ears: Code(s): H91.93 - Unspecified hearing loss, bilateral Plan: Referred to speech and hearing center in [place] (4) Mixed dyslipidemia: Code(s): E78.2 - Mixed hyperlipidemia Plan: Reminded to get fasting lipid panel done, continue with a low-cholesterol diet, regular exercise at least 30 minutes daily (5) Impaired fasting glucose: Code(s): R73.01 - Impaired fasting glucose Plan: Your fasting blood sugars elevated above 100 mg/dL. Reminded to get hemoglobin A1c lab order done Impaired glucose metabolism O2 at risk for developing diabetes mellitus type 2, as well as heart attack and stroke later on. Lifestyle changes at just weight loss, healthy eating habits, and regular exercise are important, and can prevent the progression to diabetes (6) Morbid obesity: Code(s): E66.01 - Morbid (severe) obesity due to excess calories Plan: Recommended focusing on improving your health instead of dieting. : Eat Mediterranean diet, limit foods high in fat, sugar, and calories, eat slowly, pay attention to portion sizes, plan your meals ahead of time, start regular physical activity 150 minutes of moderate intensity exercise or 90 minutes/week of vigorous exercise and increase water intake. (7) DARON (obstructive sleep apnea): Comment: Moderate degree of sleep apnea. The AHI was 16/hr and oxygen ellis was 83% Code(s): G47.33 - Obstructive sleep apnea (adult) (pediatric) (8) Anxiety and depression: Code(s): F41.9 - Anxiety disorder, unspecified; F32.A - Depression, unspecified Plan: Doing well on duloxetine 90 mg daily, and takes hydroxyzine as needed for acute anxiety attacks per (9) Environmental and seasonal allergies: Code(s): J30.89 - Other allergic rhinitis Plan: Continue with loratadine (10) Elevated blood pressure reading: Code(s): R03.0 - Elevated blood-pressure reading, without diagnosis of hypertension Plan: Repeat blood pressure still elevated. Will have her come back in 1-2 weeks to get blood pressure checked by nurse. Blood pressure at goal of less than 130/80. Reinforced importance of following a low sodium diet, getting regular exercise, and lowering stress levels. Orders: Referrals Speech and Hearing Referral H91.93 - Unspecified hearing loss, bilateral, H93.13 - Tinnitus, bilateral Coding Level of Care Code Est Pt Prev Care 40-64y(72504) Diagnoses Annual visit for general adult medical examination with abnormal findings Z00.01 Tinnitus of both ears H93.13 Decreased hearing of both ears H91.93 Mixed dyslipidemia E78.2 Impaired fasting glucose R73.01 Morbid obesity E66.01 DARON (obstructive sleep apnea) G47.33 Anxiety and depression F41.9; F32.A Environmental and seasonal allergies J30.89 Elevated blood pressure reading R03.0
[2023-03-25 11:08] VITALS: BP 160/100; PULSE 94; O2SAT 98; BMI 43.9
== END 2023-03-25 11:57 | disposition home or self-care (01) ==
PROVIDERS: PCP Internal Medicine; Visit Provider Internal Medicine
DX: Z00.01 Encounter for general adult medical examination with abnormal findings (principal); E66.01 Morbid (severe) obesity due to excess calories; Z68.41 Body mass index [BMI] 40.0-44.9, adult; H93.13 Tinnitus, bilateral; H91.93 Unspecified hearing loss, bilateral; E78.2 Mixed hyperlipidemia; R73.01 Impaired fasting glucose; G47.33 Obstructive sleep apnea (adult) (pediatric); F41.9 Anxiety disorder, unspecified; F32.A Depression, unspecified; J30.89 Other allergic rhinitis; R03.0 Elevated blood-pressure reading, without diagnosis of hypertension
CPT/HCPCS: 99396

== ENCOUNTER 2023-04-08 10:17 | Outpatient (REF) | payer OTHER, SELFPAY ==
--- NOTE | ~2023-04-08 | MM_ITS ---
EXAMINATION: MM SCREENING DIGITAL BREAST TOMOSYNTHESIS, BILATERAL CLINICAL INFORMATION: Screening. Asymptomatic. COMPARISON: Mammography: This study is compared with prior exams dating back to 2021. TECHNIQUE: Digital breast tomosynthesis is performed in both the craniocaudal and mediolateral oblique views along with computer-aided detection (CAD). Synthesized 2D images are generated from the tomosynthesis. FINDINGS: There are scattered areas of fibroglandular density (ACR BI-RADS breast composition Category b). There are no significant masses, abnormal calcifications, or other abnormalities. There are a few, bilateral, benign calcifications. MM/MM tomosynthesis screening BI IMPRESSION: No mammographic evidence of malignancy. ASSESSMENT: BI-RADS BI-RADS 2 - Benign Findings RECOMMENDATION: Routine annual mammography screening. 1 year F/U This examination should not preclude the clinical evaluation of a suspicious palpable abnormality. This patient's information was entered into a reminder system with a target due date for their next mammogram.
== END 2023-04-08 10:18 | disposition home or self-care (01) ==
LOC: HO.MAMMO 10:17
PROVIDERS: PCP Internal Medicine; Visit Provider Internal Medicine
DX: Z12.31 Encounter for screening mammogram for malignant neoplasm of breast (principal)
CPT/HCPCS: 77063; 77067

== ENCOUNTER → 2023-04-08 10:45 | Outpatient (BNV) | payer OTHER, SELFPAY | PROVIDERS: PCP Internal Medicine; Visit Provider Radiology Diagnostic Radiology | DX: Z12.31 Encounter for screening mammogram for malignant neoplasm of breast (principal) | CPT/HCPCS: 77063; 77067 ==

== ENCOUNTER 2023-06-03 09:33 | Outpatient (AMB) | payer OTHER, SELFPAY ==
--- NOTE | 2023-06-03 09:35 | A.OFFVIS_ITS ---
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 Complaining of heavy menstrual cycles associated with passage of blood clots of the last few months Last Pap/HPV was negative in 06/14 Last Mammogram was BI-RADS 2 in 04/13 [facility] Medical History Decreased hearing of both ears Environmental and seasonal allergies Tinnitus of both ears Knee pain Excessive daytime sleepiness Loud snoring Vitamin D deficiency Impaired fasting glucose Mixed dyslipidemia Morbid obesity Hiatal hernia with gastroesophageal reflux Family history of premature CAD Annual visit for general adult medical examination with abnormal findings Anxiety and depression Surgical History H/O endoscopy H/O wisdom tooth extraction Family History Father Substance use disorder Mental health disorder Alcoholism Myocardial infarction acute, Onset Age: 55 Depression Maternal Uncle Testicular cancer Social History Household Members: Spouse and Children Housing: House Alcohol intake: current Alcohol intake frequency: does not drink Patient Tobacco Use Status: Never used Tobacco e-Cigarette/Vaping Use: Never Used Current occupational status: unemployed and other Sexual orientation: Straight/Heterosexual Gender identity: Female Cognitive needs: No Hearing needs: No Vision needs: Yes Female Reproductive History Menstrual Date of last menstrual period: 05/29/23 Total pregnancies: 3 Full term: 3 Number of Living Children: 3 Date of last pap smear: 05/29/22 (neg pap and hpv) Date of Mammogram: 04/08/23 Review of Systems Const All systems reviewed & are unremarkable except as noted in HPI and below Card Reports as per HPI Resp Reports as per HPI GI Reports as per HPI and Reports no additional complaints Reports as per HPI Physical Exam Vital Signs: Last Vital Signs BP 142/84 H 06/03/23 09:36 BMI result Body Mass Index 43.3 Const General: cooperative, healthy appearing and comfortable Chest Chest palpation & inspection: normal inspection of the chest and normal palpation of entire chest wall Breast/axilla inspection: normal inspection of the breasts and normal inspection of the axillae Breast/axilla palpation: normal palpation of the breasts, normal palpation of the axillae and no axillary lymphadenopathy Resp Effort & Inspection: normal respiratory effort Auscultation: clear to auscultation bilaterally Percussion: percussion normal Cardio Palpation: normal PMI Rate: regular rate Rhythm: regular rhythm Heart sounds: no murmurs and no rubs Peripheral pulses: Peripheral pulses 2+ throughout GI Inspection: Yes normal to inspection Palpation (GI): Soft to palpation, nontender, no guarding, not rigid and No hepatosplenomegaly present Percussion: Yes normal to percussion Auscultation: normal bowel sounds Rectal Exam - Female: deferred General: Yes bladder normal to palpation External Female Exam: No lesion Speculum Exam - Vagina: normal appearance of the vagina, normal palpation, normal vaginal discharge and not erythematous Speculum Exam - Cervix: normal appearance of the cervix and normal palpation Bimanual exam- vagina & uterus: normal bimanual exam, normal palpation, uterine size normal, bladder normal to palpation, consistency normal and normal palpation Bimanual Exam- Adnexa, other: normal adnexae, no masses and no tenderness Assessment & Plan Assessment & Plan (1) Well woman exam: Code(s): Z01.419 - Encounter for gynecological examination (general) (routine) without abnormal findings Plan: Cotesting not indicated this year. Instructions given to patient to schedule her next screening Mammogram in 04/14. Counseled the patient about the recommended dietary allowance of 1000 mg of Calcium & 600 IU of vitamin D. The patient was instructed to perform monthly self-breast exams and to schedule an annual exam in a year; All questions answered and the patient verbalized understanding. Instructed the patient to schedule annual exam in a year (2) Abnormal uterine bleeding: Code(s): N93.9 - Abnormal uterine and vaginal bleeding, unspecified Plan: Co testing not indicated this year, GC and chlamydia taken CBC, prolactin, TSH, HCG, and pelvic ultrasound ordered. Discussed with the patient the different causes of abnormal bleeding including thyroid disorders, uterine and ovarian pathology, endometrial hyperplasia, carcinoma and other potential causes. Discussed with the patient the work up including CBC (to r/o anemia), TSH, prolactin, pelvic Ultrasound, endometrial biopsy to r/o endometrial pathology. All questions answered and the patient verbalized understanding. Instructed the patient to schedule an appointment for an endometrial biopsy in 2 weeks. Orders: Orders TSH reflex Free T4 Today N93.9 - Abnormal uterine and vaginal bleeding, unspecified HCG Quantitative Today N93.9 - Abnormal uterine and vaginal bleeding, unspecified Complete Blood Count no Diff Today N93.9 - Abnormal uterine and vaginal bleeding, unspecified US pelvic and transvaginal Today N93.9 - Abnormal uterine and vaginal bleeding, unspecified Prolactin Today N93.9 - Abnormal uterine and vaginal bleeding, unspecified Coding Level of Care Code Est Pt Prev Care 40-64y(46899) Diagnoses Well woman exam Z01.419 Abnormal uterine bleeding N93.9
[2023-06-03 09:36] VITALS: BP 142/84; BMI 43.3
== END 2023-06-03 09:56 | disposition home or self-care (01) ==
LOC: HO.HWS 09:33
PROVIDERS: PCP Internal Medicine; Visit Provider Obstetrics & Gynecology
DX: Z01.419 Encounter for gynecological examination (general) (routine) without abnormal findings (principal); N93.9 Abnormal uterine and vaginal bleeding, unspecified
CPT/HCPCS: 99396

== ENCOUNTER 2023-06-03 09:33 | Outpatient (REF) | payer OTHER, SELFPAY ==
[2023-06-03 13:27] LABS: CT PCR NOT DETECTED (Not Detect.); NG PCR NOT DETECTED (Not Detect.)
== END 2023-06-03 09:34 | disposition home or self-care (01) ==
LOC: HO.LNP 09:33
PROVIDERS: PCP Internal Medicine; Visit Provider Obstetrics & Gynecology
DX: Z01.419 Encounter for gynecological examination (general) (routine) without abnormal findings (principal); N93.9 Abnormal uterine and vaginal bleeding, unspecified; Z20.2 Contact with and (suspected) exposure to infections with a predominantly sexual mode of transmission
CPT/HCPCS: 0353U

== ENCOUNTER 2023-06-19 11:26 | Outpatient (REF) | payer OTHER, SELFPAY ==
--- NOTE | ~2023-06-19 | US_ITS ---
EXAMINATION: US PELVIS CLINICAL INFORMATION: Abnormal uterine and vaginal bleeding; the last menstrual period was on 06/05/2023. COMPARISON: None available. TECHNIQUE: Ultrasound of the pelvis is performed using both transabdominal and transvaginal transducers along with Doppler. Transvaginal imaging is performed due to inadequate visualization transabdominally. FINDINGS: Uterus: The uterus is anteverted and anteflexed. The uterus measures 8.4 x 4.9 x 6.6 cm. Nabothian cysts are seen within the cervix. The double wall endometrial thickness is 5 mm. There is a small amount of free fluid seen within the endometrial canal. The uterus is smooth in contour and has normal myometrial echogenicity. No visible fibroid. Adnexa: Both ovaries are visualized. There is normal color flow to the adnexa. There is no ovarian torsion. There is a small amount of nonspecific free fluid adjacent to the left ovary. Right ovary measures 2.3 x 1.6 x 2.7 cm, volume 5.1 mL. Left ovary measures 3.2 x 2.0 x 1.8 cm, volume 5.8 mL. 1.4 cm and 1.1 cm dominant physiologic follicles are incidentally noted and require no imaging follow-up. US/US pelvic and transvaginal IMPRESSION: 1. Nabothian cysts are seen within the cervix. 2. There is a small amount of nonspecific free fluid seen within the endometrial canal. 3. A small amount of nonspecific free fluid is seen adjacent to the left ovary.
[2023-06-19 13:12] LABS: Hematocrit 40.9 % (37.0-47.0); Hemoglobin 14.1 g/dl (12.0-16.0); Mean Corpuscular HGB Conc 34.5 g/dl (31.0-35.0); Mean Corpuscular Hemoglobin 29.6 pg (27.0-33.0); Mean Corpuscular Volume 85.7 fL (80.0-98.0); Mean Platelet Volume 9.1 fL (9.4-12.3); Platelet Count 299 X10*3/uL (160-400); Red Blood Count 4.77 X10*6/uL (4.20-5.50); Red Cell Distribution Width 13.4 % (11.0-16.0); White Blood Count 8.6 X10*3/uL (4.8-10.8)
[2023-06-19 14:11] LABS: HCG Quantitative < 2 mIU/mL; TSH reflex Free T4 2.16 uIU/mL (0.32-4.0)
[2023-06-20 12:43] LABS: Prolactin 5.9 ng/mL
== END 2023-06-19 11:27 | disposition home or self-care (01) ==
LOC: HO.US 11:26
PROVIDERS: PCP Internal Medicine; Visit Provider Obstetrics & Gynecology
DX: N93.9 Abnormal uterine and vaginal bleeding, unspecified (principal)
CPT/HCPCS: 36415; 76830; 76856; 84146; 84443; 84702; 85027

== ENCOUNTER 2023-06-26 11:00 | Outpatient (AMB) | payer OTHER, SELFPAY ==
[2023-06-26 11:07] VITALS: BP 120/76; PULSE 96; TEMP 36.6; O2SAT 97; BMI 43.1
--- NOTE | 2023-06-26 11:07 | AM.OFFWIN_ITS ---
Intake Vital Signs 06/26/23 11:07 Height 5 ft 1 in Weight 228 lb BMI 43.1 BP 120/76 Blood Pressure Location Lt brachial Position Sitting Pulse 96 Pulse Source Pulse Oximeter Temp 97.9 F Temp Source Temporal Artery Scan Pulse Oximetry (%) 97 Oxygen Delivery Method Room Air Intake Visit Reasons: EP sinus pain congestion masked in lobby Intake Note: pt is here today for sinus pain congestion started saturday Patient Tobacco Use Status: Never used Tobacco Allergies latex Adverse Reaction (Verified 06/26/23 11:08) hives Do you need a note to return to daycare/school/sports/work: No HPI HPI Comments History of Present Illness Details 42 y/o female who presents to walk in [facility] with c/o sinus pressure and nasal congestion since Saturday. Denies fevers, chills, nausea or vomiting. [facility] Medical History Decreased hearing of both ears Environmental and seasonal allergies Tinnitus of both ears Knee pain Excessive daytime sleepiness Loud snoring Vitamin D deficiency Impaired fasting glucose Mixed dyslipidemia Morbid obesity Hiatal hernia with gastroesophageal reflux Family history of premature CAD Annual visit for general adult medical examination with abnormal findings Anxiety and depression Surgical History H/O endoscopy H/O wisdom tooth extraction Family History Father Substance use disorder Mental health disorder Alcoholism Myocardial infarction acute, Onset Age: 55 Depression Maternal Uncle Testicular cancer Social History Household Members: Spouse and Children Housing: House Alcohol intake: current Alcohol intake frequency: does not drink Patient Tobacco Use Status: Never used Tobacco e-Cigarette/Vaping Use: Never Used Current occupational status: unemployed and other Sexual orientation: Straight/Heterosexual Gender identity: Female Cognitive needs: No Hearing needs: No Vision needs: Yes Review of Systems Const All systems reviewed & are unremarkable except as noted in HPI and below Physical Exam Vital Signs: Last Vital Signs Temp 97.9 F 06/26/23 11:07 Pulse 96 06/26/23 11:07 BP 120/76 06/26/23 11:07 Pulse Ox 97 06/26/23 11:07 Oxygen Delivery Method Room Air 06/26/23 11:07 BMI result Body Mass Index 43.1 Const General: comfortable and no acute distress Nutritional Appearance: obese Orientation/consciousness: patient oriented x3 HEENT Head: Yes normocephalic Ears: external ears normal and TM abnormal with fluid behind the TM bilateral General nose exam: Abnormal mucous membranes and turbinates present boggy and erythematous Face and sinus: Yes sinus tenderness Mouth: moist mucous membranes Throat: Yes posterior oropharynx normal Resp Effort & Inspection: normal respiratory effort, able to speak in complete sentences and Actively coughing Auscultation: clear to auscultation bilaterally, no crackles, no rales, no rhonchi and no wheezes Cardio Rate: regular rate Rhythm: regular rhythm Neuro General: patient oriented x3 Assessment & Plan Assessment & Plan (1) Acute rhinosinusitis: Code(s): J01.90 - Acute sinusitis, unspecified Plan: - H/P consistent with Sinus infection. - SARs - Abx x 5 days - Acetaminophen for pain relief - Rest -Hydrate well with warm fluids and honey (2) Cough in adult: Code(s): R05.9 - Cough, unspecified Plan: - Take medicine as directed. Orders: Orders SARS-CoV2/FLU/RSV Today J01.90 - Acute sinusitis, unspecified, R05.9 - Cough, unspecified Medications: New acetaminophen 1,000 mg (2 x 500 mg) PO Q6H PRN 30 caps 0RF fever J01.90 - Acute sinusitis, unspecified benzonatate 100 mg PO TID 60 caps 0RF R05.9 - Cough, unspecified amoxicillin 500 mg PO BID 5 days 10 caps 0RF J01.90 - Acute sinusitis, unspecified Coding Level of Care Code Est Pt Level 3 (05919) Diagnoses Acute rhinosinusitis J01.90 Cough in adult R05.9 Time Spent (min) 15
== END 2023-06-26 11:54 | disposition home or self-care (01) ==
PROVIDERS: PCP Internal Medicine; Visit Provider Nurse Practitioner Family
DX: J01.90 Acute sinusitis, unspecified (principal); R05.9 Cough, unspecified
CPT/HCPCS: 99213

== ENCOUNTER 2023-06-26 11:33 | Outpatient (REF) | payer OTHER, SELFPAY ==
[2023-06-26 13:50] LABS: Influenza A PCR NEGATIVE (Negative); Influenza B PCR NEGATIVE (Negative); Resp Syncy Virus RNA Qual PCR POSITIVE (Negative); SARS COV2 PCR INHOUSE NEGATIVE (Negative)
== END 2023-06-26 11:34 | disposition home or self-care (01) ==
LOC: HO.LAB 11:33
PROVIDERS: Visit Provider Nurse Practitioner Family
DX: J01.90 Acute sinusitis, unspecified (principal); R05.9 Cough, unspecified; Z11.52 Encounter for screening for COVID-19; Z20.828 Contact with and (suspected) exposure to other viral communicable diseases
CPT/HCPCS: 0241U

== ENCOUNTER 2023-07-09 09:31 | Outpatient (AMB) | payer OTHER, SELFPAY ==
--- NOTE | 2023-07-09 09:37 | A.OFFVIS_ITS ---
Intake Vital Signs 07/09/23 09:48 07/09/23 09:57 07/09/23 10:11 Height 5 ft 1 in Weight 236 lb BMI 44.6 BP 172/106 H 164/110 H 156/108 H Intake Visit Reasons: US follow up Auricular Acupuncturist Required: No Information Interpreted: non-clinical & clinical Electronic Calibration Technician: Electronic Calibration Technician Present (Geri) Allergies latex Adverse Reaction (Verified 07/09/23 09:49) hives Is last menstrual period known: Yes Last menstrual period: 06/25/23 Post menopausal: No HPI HPI Comments History of Present Illness Details The patient is presenting for [facility] Medical History Decreased hearing of both ears Environmental and seasonal allergies Tinnitus of both ears Knee pain Excessive daytime sleepiness Loud snoring Vitamin D deficiency Impaired fasting glucose Mixed dyslipidemia Morbid obesity Hiatal hernia with gastroesophageal reflux Family history of premature CAD Annual visit for general adult medical examination with abnormal findings Anxiety and depression Surgical History H/O endoscopy H/O wisdom tooth extraction Family History Father Substance use disorder Mental health disorder Alcoholism Myocardial infarction acute, Onset Age: 55 Depression Maternal Uncle Testicular cancer Social History Household Members: Spouse and Children Housing: House Alcohol intake: current Alcohol intake frequency: does not drink Patient Tobacco Use Status: Never used Tobacco e-Cigarette/Vaping Use: Never Used Current occupational status: unemployed and other Sexual orientation: Straight/Heterosexual Gender identity: Female Cognitive needs: No Hearing needs: No Vision needs: Yes Female Reproductive History Menstrual Date of last menstrual period: 06/25/23 control method: none Physical Exam Vital Signs: Last Vital Signs BP 164/110 H 07/09/23 09:57 BMI result Body Mass Index 44.6 Results AMB Test Urine AMB Test Urine Negative Last Edit by SRINIVASA Anderson on 07/09/23 09:58 Results Reviewed Results Reviewed: Laboratory Last Values [facility] Negative 07/09/23 09:57 Assessment & Plan Assessment & Plan (1) Abnormal uterine bleeding: Code(s): N93.9 - Abnormal uterine and vaginal bleeding, unspecified Plan: Multiple Blood pressure reading was elevated , insert part of patient resting and taking her blood pressure medication in the morning. Instructions given the patient to contact primary care office for blood pressure adjustment a reschedule EMB in 2 weeks. All questions answered, the patient verbalized u nderstanding and agreed with the plan. Orders: Orders AMB HCG Urine Test Today Z32.02 - Encounter for test, result negative Coding Level of Care Code Est Pt Level 3 (10316) Diagnoses Abnormal uterine bleeding N93.9
[2023-07-09 09:48] VITALS: BP 172/106; BMI 44.6
[2023-07-09 09:57] VITALS: BP 164/110
[2023-07-09 10:11] VITALS: BP 156/108
== END 2023-07-09 10:40 | disposition home or self-care (01) ==
PROVIDERS: PCP Internal Medicine; Visit Provider Obstetrics & Gynecology
DX: N93.9 Abnormal uterine and vaginal bleeding, unspecified (principal); Z32.02 Encounter for pregnancy test, result negative
CPT/HCPCS: 99213

== ENCOUNTER → 2023-07-09 09:31 | Outpatient (BNVA) | payer OTHER, SELFPAY | PROVIDERS: PCP Internal Medicine; Visit Provider Obstetrics & Gynecology | DX: N93.9 Abnormal uterine and vaginal bleeding, unspecified (principal); Z32.02 Encounter for pregnancy test, result negative | CPT/HCPCS: 81025; 99212 ==

== ENCOUNTER 2023-07-09 13:01 | Outpatient (REF) | payer OTHER, SELFPAY | END 2023-07-09 13:02 | disposition home or self-care (01) | LOC: HO.SH 13:01 | PROVIDERS: PCP Internal Medicine; Visit Provider Internal Medicine | DX: Z01.118 Encounter for examination of ears and hearing with other abnormal findings (principal); H90.3 Sensorineural hearing loss, bilateral; H93.13 Tinnitus, bilateral | CPT/HCPCS: 92557; 92567; 92625 ==

== ENCOUNTER 2023-07-16 15:17 | Outpatient (AMB) | payer OTHER, SELFPAY ==
[2023-07-16 15:18] VITALS: BP 130/70; PULSE 98; O2SAT 99; BMI 44.2
--- NOTE | 2023-07-16 15:18 | MHC.OFFWIV ---
Intake Vital Signs 07/16/23 15:18 Height 5 ft 1 in Weight 234 lb BMI 44.2 BP 130/70 Blood Pressure Location Lt brachial Position Sitting Pulse 98 Pulse Source Pulse Oximeter Pulse Oximetry (%) 99 Oxygen Delivery Method Room Air Intake Visit Reasons: EP Ears/Bladder concern Intake Note: Pt presents to the office today for c/o ear pain that has been going on and she states things sound [place] . She also states she is having urinary urgency. Patient Tobacco Use Status: Never used Tobacco Allergies latex Adverse Reaction (Verified 07/16/23 15:41) hives Medication List - Last Reconciled 07/16/23 by Redd Sheehan MD acetaminophen 1,000 mg (2 x 500 mg) PO Q6H PRN azelastine 1 spray intranasal BID PRN benzonatate 100 mg PO TID cholecalciferol (vitamin D3) 25 mcg PO DAILY CPAP (CPAP Machine/Device) As directed duloxetine 30 mg PO DAILY duloxetine 60 mg PO DAILY hydroxyzine HCl 25 mg PO BEDTIME PRN lisinopril 10 mg PO DAILY loratadine (Claritin) 10 mg PO DAILY magnesium oxide 400 mg PO DAILY 30 days HPI EP Ears/Bladder concern HPI Details 42-year-old female presents to the office for a sick visit. Patient is reporting pain in the right ear for the past week. She was recently seen by a bead filler and is awaiting an ENT referral. Pain is throbbing in nature. In addition patient is experiencing some discomfort on urinating. There is no increase in frequency of urination. No fevers or chills. PENDING SALE TO [facility] Medical History Decreased hearing of both ears Environmental and seasonal allergies Tinnitus of both ears Knee pain Excessive daytime sleepiness Loud snoring Vitamin D deficiency Impaired fasting glucose Mixed dyslipidemia Morbid obesity Hiatal hernia with gastroesophageal reflux Family history of premature CAD Annual visit for general adult medical examination with abnormal findings Anxiety and depression Surgical History H/O endoscopy H/O wisdom tooth extraction Family History Father Substance use disorder Mental health disorder Alcoholism Myocardial infarction acute, Onset Age: 55 Depression Maternal Uncle Testicular cancer Social History Household Members: Spouse and Children Housing: House Alcohol intake: current Alcohol intake frequency: does not drink Patient Tobacco Use Status: Never used Tobacco e-Cigarette/Vaping Use: Never Used Current occupational status: unemployed and other Sexual orientation: Straight/Heterosexual Gender identity: Female Cognitive needs: No Hearing needs: No Vision needs: Yes Physical Exam Vital Signs: Last Vital Signs Pulse 98 07/16/23 15:18 BP 130/70 07/16/23 15:18 Pulse Ox 99 07/16/23 15:18 Oxygen Delivery Method Room Air 07/16/23 15:18 BMI result Body Mass Index 44.2 Const General: cooperative and healthy appearing Nutritional Appearance: well nourished Orientation/consciousness: patient oriented x3 Limitations: no limitations HEENT Head: Yes normal to inspection Eyes General: appearance normal, both eyes and all related structures Neck Neck: Yes normal visual inspection Chest Chest palpation & inspection: normal palpation of entire chest wall Resp Effort & Inspection: normal respiratory effort Neuro General: patient oriented x3 Results AMB Urinalysis, Automated UA Leukoctes 0 Ro/uL Last Edit by Asha Nagel MA on 07/16/23 15:44 UA Nitrite Negative Last Edit by Asha Nagel MA on 07/16/23 15:44 UA Urobilinogen 0.2 mg/dL Last Edit by Asha Nagel MA on 07/16/23 15:44 UA Protein 0 mg/dL Last Edit by Asha Nagel MA on 07/16/23 15:44 UA pH 5.5 Last Edit by Asha Nagel MA on 07/16/23 15:44 UA Blood 200 Angel/uL Last Edit by Asha Nagel MA on 07/16/23 15:44 UA Specific Graham 1.015 Last Edit by Asha Nagel MA on 07/16/23 15:44 UA Ketone Negative Last Edit by Asha Nagel MA on 07/16/23 15:44 UA Bilirubin 0 mg/dL Last Edit by Asha Nagel MA on 07/16/23 15:44 UA Glucose 0 mg/dL Last Edit by Asha Nagel MA on 07/16/23 15:44 Assessment & Plan Assessment & Plan (1) Upper respiratory tract infection: Code(s): J06.9 - Acute upper respiratory infection, unspecified Plan: Bactrim for 7 days called in. If sx not better, to follow up here. (2) Urinary tract infection: Code(s): N39.0 - Urinary tract infection, site not specified Plan: Urinalysis revd, no evidence of infection Orders: Orders AMB Urinalysis Automated Today Z13.9 - Encounter for screening, unspecified Medications: New sulfamethoxazole-trimethoprim 800-160 mg (Bactrim DS) 1 tab PO BID 7 days 14 tabs 0RF Coding Level of Care Code Est Pt Level 3 (56107) Diagnoses Upper respiratory tract infection J06.9 Urinary tract infection N39.0
== END 2023-07-16 16:19 | disposition home or self-care (01) ==
PROVIDERS: PCP Internal Medicine; Visit Provider Internal Medicine
DX: J06.9 Acute upper respiratory infection, unspecified (principal); N39.0 Urinary tract infection, site not specified; Z13.9 Encounter for screening, unspecified
CPT/HCPCS: 81003; 99213

== ENCOUNTER 2023-07-25 10:59 | Outpatient (AMB) | payer OTHER, SELFPAY ==
--- NOTE | 2023-07-25 11:07 | A.OFFVIS_ITS ---
Intake Vital Signs 07/25/23 11:08 Height 5 ft 1 in Weight 234 lb BMI 44.2 BP 140/88 H Blood Pressure Location Lt brachial Position Sitting Intake Visit Reasons: EMB Information Interpreted: non-clinical & clinical Pharmaceutical Plant Operator: Pharmaceutical Plant Operator Present Accompanied by: Self / Same As Patient Allergies latex Adverse Reaction (Verified 07/25/23 11:08) hives HPI HPI Comments History of Present Illness Details presenting for EMB PFSH Medical History Decreased hearing of both ears Environmental and seasonal allergies Tinnitus of both ears Knee pain Excessive daytime sleepiness Loud snoring Vitamin D deficiency Impaired fasting glucose Mixed dyslipidemia Morbid obesity Hiatal hernia with gastroesophageal reflux Family history of premature CAD Annual visit for general adult medical examination with abnormal findings Anxiety and depression Surgical History H/O endoscopy H/O wisdom tooth extraction Family History Father Substance use disorder Mental health disorder Alcoholism Myocardial infarction acute, Onset Age: 55 Depression Maternal Uncle Testicular cancer Social History Household Members: Spouse and Children Housing: House Alcohol intake: current Alcohol intake frequency: does not drink Patient Tobacco Use Status: Never used Tobacco e-Cigarette/Vaping Use: Never Used Current occupational status: unemployed and other Sexual orientation: Straight/Heterosexual Gender identity: Female Cognitive needs: No Hearing needs: No Vision needs: Yes Physical Exam Vital Signs: Last Vital Signs BP 140/88 H 07/25/23 11:08 BMI result Body Mass Index 44.2 Office Procedures Endometrial Biopsy Details: The patient was counseled regarding the indication and benefits of endometrial sampling to rule out endometrial pathology including not limited to endometrial hyperplasia or endometrial cancer and others; The alternatives (Either do nothing vs. hysteroscopy D&C) & the risks were discussed with the patient including but not limited: pain, uterine perforation, bleeding, infection, possible injury to bladder, bowel, ureter, possible need for blood transfusion with all its possible risks. The patient verbalized understanding all questions answered and signed consent. Urine test done in the office was negative The patient was placed into the dorsal lithotomy position; a speculum was inserted in the vagina. Using aseptic technique for the procedure, the cervix was cleansed with Betadine. The anterior lip of the cervix was grasped with a single tooth tenaculum. The uterus was sounded to 7 cm with a 4 mm Pipelle was used. Tissues samples were obtained and placed in formalin, in a patient labeled container and sent to the pathology department. At the end of the procedure, there was minimal bleeding noted The patient tolerated the procedure well and was discharged in good condition with the following instructions: Nothing in the vagina until the bleeding stops. No sex until the bleeding stops, to call if any of the following occurs: fever (>100.4), flu-like symptoms, abdominal pain, heavy bleeding, four smelling vaginal discharge. The patient was instructed to schedule a Follow up appointment in 2 weeks to discuss pathology results of the biopsy and treatment options. This note was generated with a voice recognition program. Some errors may have been overlooked during the review of this note. Sometimes these errors may affect the content or meaning of a given sentence. [id number] Biopsy Results AMB Test Urine AMB Test Urine Negative Last Edit by Flores Flanagan MA on 07/25/23 11:15 Results Reviewed Results Reviewed: Laboratory Last Values Tst Clinic Negative 07/25/23 11:14 Assessment & Plan Assessment & Plan (1) Abnormal uterine bleeding: Code(s): N93.9 - Abnormal uterine and vaginal bleeding, unspecified Plan: EMB done, see procedure note Orders: Orders AMB HCG Urine Test Today Z32.02 - Encounter for test, result negative AMB Endometrial Biopsy Today N93.9 - Abnormal uterine and vaginal bleeding, unspecified Coding Level of Care Code Procedure Only Diagnoses Abnormal uterine bleeding N93.9 CPT Codes Endometrial Biopsy - CPT: 75887-[id number] Biopsy ([id number])
[2023-07-25 11:08] VITALS: BP 140/88; BMI 44.2
== END 2023-07-25 12:53 | disposition home or self-care (01) ==
PROVIDERS: PCP Internal Medicine; Visit Provider Obstetrics & Gynecology
DX: N93.9 Abnormal uterine and vaginal bleeding, unspecified (principal); Z32.02 Encounter for pregnancy test, result negative
CPT/HCPCS: 58100

== ENCOUNTER 2023-07-25 10:59 | Outpatient (REF) | payer OTHER, SELFPAY | END 2023-07-25 11:00 | disposition home or self-care (01) | LOC: HO.LNP 10:59 | PROVIDERS: PCP Internal Medicine; Visit Provider Obstetrics & Gynecology | DX: N93.9 Abnormal uterine and vaginal bleeding, unspecified (principal); Z32.02 Encounter for pregnancy test, result negative | CPT/HCPCS: 58100; 81025; 88305 ==

== ENCOUNTER 2023-09-09 10:20 | Outpatient (AMB) | payer OTHER, SELFPAY ==
[2023-09-09 10:29] VITALS: BP 132/88; BMI 44.2
--- NOTE | 2023-09-09 10:29 | A.OFFVIS_ITS ---
Vital Signs 09/09/23 10:29 Height 5 ft 1 in Weight 233 lb 11.04 oz BMI 44.2 BP 132/88 Intake Visit Reasons: EMB results/DO NOT RS Triage Registered Nurse Required: No Information Interpreted: non-clinical & clinical County Supervisor: County Supervisor Present Accompanied by: Self / Same As Patient Allergies latex Adverse Reaction (Verified 09/09/23 10:29) hives Is last menstrual period known: Yes Last menstrual period: 02/18/20 Post menopausal: No Patient : No Do you need a note to return to daycare/school/sports/work: Yes (for surgery on saturday) HPI Comments Details: The patient is presenting after endometrial biopsy. The patient has no complaints, no vaginal bleeding, no feverishness chills or abdominal pain. The endometrial biopsy pathology report showed the following: Endometrium, biopsy: Benign proliferative endometrium with extensive glandular and stromal breakdown, and focal benign endocervical glandular epithelium; no atypia or carcinoma. Comment: Some fragments may be derived from benign polyps. [facility] Medical History Decreased hearing of both ears Environmental and seasonal allergies Tinnitus of both ears Knee pain Excessive daytime sleepiness Loud snoring Vitamin D deficiency Impaired fasting glucose Mixed dyslipidemia Morbid obesity Hiatal hernia with gastroesophageal reflux Family history of premature CAD Annual visit for general adult medical examination with abnormal findings Anxiety and depression Surgical History H/O endoscopy H/O wisdom tooth extraction Family History Father Substance use disorder Mental health disorder Alcoholism Myocardial infarction acute, Onset Age: 55 Depression Maternal Uncle Testicular cancer Social History Household Members: Spouse and Children Housing: House Alcohol intake: current Alcohol intake frequency: does not drink Patient Tobacco Use Status: Never used Tobacco e-Cigarette/Vaping Use: Never Used Current occupational status: unemployed and other Sexual orientation: Straight/Heterosexual Gender identity: Female Cognitive needs: No Hearing needs: No Vision needs: Yes Female Reproductive History Menstrual Date of last menstrual period: 02/18/20 Total pregnancies: 2 Full term: 2 Review of Systems Card Reports as per HPI and Reports no additional complaints Resp Reports as per HPI and Reports no additional complaints GI Reports as per HPI and Reports no additional complaints Reports as per HPI Physical Exam Vital Signs: Last Vital Signs BP 132/88 09/09/23 10:29 BMI result Body Mass Index 44.2 Const General: cooperative, healthy appearing and comfortable Resp Effort & Inspection: normal respiratory effort Auscultation: clear to auscultation bilaterally Percussion: percussion normal Cardio Palpation: normal PMI Rate: regular rate Rhythm: regular rhythm Heart sounds: no murmurs and no rubs Peripheral pulses: Peripheral pulses 2+ throughout GI Inspection: Yes normal to inspection Palpation (GI): Soft to palpation, nontender, no guarding, not rigid and No hepatosplenomegaly present Percussion: Yes normal to percussion Auscultation: normal bowel sounds Rectal Exam - Female: deferred Assessment & Plan Assessment & Plan (1) Abnormal uterine bleeding: Comment: Endometrial polyp on EMB pathology Code(s): N93.9 - Abnormal uterine and vaginal bleeding, unspecified Category: Medical Plan: Discussed with the patient the results the endometrial biopsy showing fragments of benign endometrial polyp, recommended hysteroscopy, D&C possible polypectomy/myomectomy. Discussed with the patient the procedure , all benefits and risks including but not limited to inability to complete the procedure , insufficient endometrial tissue for a complete evaluation of the endometrial cavity , bleeding, infection, possible need for blood transfusion with all its risk ( HIV,syphilis, Hepatitis, anaphylaxis shock, others..), injury to bladder, rectum, possible need for laparoscopy/laparotomy or hysterectomy. The patient verbalized understanding and signed the consent. Instructions given the patient to stay NPO after midnight the day prior to the procedure and to take only the specific medication (s) discussed the morning of the surgical procedure and to schedule a 2 week postoperative appointment Coding Level of Care Code Est Pt Level 3 (02535) Diagnoses Abnormal uterine bleeding N93.9
== END 2023-09-09 13:20 | disposition home or self-care (01) ==
PROVIDERS: PCP Internal Medicine; Visit Provider Obstetrics & Gynecology
DX: N93.9 Abnormal uterine and vaginal bleeding, unspecified (principal)
CPT/HCPCS: 99213

== ENCOUNTER → 2023-09-09 10:20 | Outpatient (BNVA) | payer OTHER, SELFPAY | PROVIDERS: PCP Internal Medicine; Visit Provider Obstetrics & Gynecology | DX: N93.9 Abnormal uterine and vaginal bleeding, unspecified (principal) | CPT/HCPCS: 99212 ==

== ENCOUNTER 2023-09-24 10:30 | Outpatient (REF) | payer OTHER, SELFPAY ==
--- NOTE | ~2023-09-24 | XR_ITS ---
EXAMINATION: XR SINUSES CLINICAL INFORMATION: Sinusitis COMPARISON: None available. TECHNIQUE: 4 views of the paranasal sinuses FINDINGS: There is moderate mucosal thickening within the maxillary sinuses. There is marked mucosal thickening within the ethmoid air cells. There is mild mucosal thickening within the frontal and sphenoid sinuses. No air-fluid levels. No fractures are identified. No radiodense foreign bodies. XR/XR sinus min 3V IMPRESSION: Pansinusitis. If of continued clinical concern, dedicated CT scan of the paranasal sinuses could be obtained.
== END 2023-09-24 10:31 | disposition home or self-care (01) ==
LOC: HO.XRAY 10:30
PROVIDERS: Visit Provider Otolaryngology
DX: J32.9 Chronic sinusitis, unspecified (principal)
CPT/HCPCS: 70220

== ENCOUNTER 2023-09-27 06:47 | Day surgery (SDC) | payer OTHER, SELFPAY ==
[2023-09-25 13:04] VITALS: BMI 44.0
[2023-09-27] VITALS (8 sets, daily range): BP systolic 124–152; BP diastolic 75–93; PULSE 75–92; RESP 11–18; TEMP 36.3–36.7; O2SAT 96–99; BMI 45.4
[2023-09-27 07:11] LABS: UPreg QC Valid YES; Urine Pregnancy NEGATIVE (NEGATIVE)
[2023-09-27] MEDS: Lactated Ringers 1,000 ML 100 ML IVCONT (07:27)
--- NOTE | 2023-09-27 07:29 | MHC.SHP ---
Pre-Procedural Eval Section A - 24 Hr Update-Section A only Date of Service: 09/27/23 The patient is an INPATIENT: No Changes since office visit: No Cold of Flu in the past 2 weeks, No New Medical Problems, No Changes in Medication and No Patient answered all questions The patient has been examined within 24 hours of the surgical procedure. The History & Physical has been completed within 30 days and I have reviewed it.: Yes Section B - Complete if H&P > 30 days Chief Complaint: Abnormal uterine and vaginal bleeding, unspecified Allergies: Allergies Allergy/AdvReac Type Severity Reaction Status Date / Time latex AdvReac Mild hives Verified 09/27/23 07:13 Plan Diagnosis/Plan: Unchanged I have reviewed the history and physical and performed a pertinent physical examination on my patient. No changes have occurred unless specified. Time Spent With Patient Time: Total time managing care of this patient today ____ minutes.
--- NOTE | 2023-09-27 07:40 | HO.ANESPROP2 ---
Documented by User: Alice Amaral NP 09/25/23 13:25 HPI - Anesthesia Eval Consult details Narrative: 42yo F for D&C Hysteroscopy,possible myomectomy,possible polypectomy PMFSH Active Problems Active Problems: All Active Problems Abnormal uterine bleeding (Acute) Decreased hearing of both ears (Acute) Environmental and seasonal allergies (Acute) DARON (obstructive sleep apnea) (Acute) Tinnitus of both ears (Acute) Impaired fasting glucose (Acute) Mixed dyslipidemia (Acute) Morbid obesity (Acute) Hiatal hernia with gastroesophageal reflux (Acute) Family history of premature CAD (Acute) Annual visit for general adult medical examination with abnormal findings (Acute) Anxiety and depression (Acute) Past Medical History Medical History (Updated 09/27/23 @ 06:58 by Zoe Smallwood) HTN (hypertension) Decreased hearing of both ears Environmental and seasonal allergies Tinnitus of both ears Knee pain Excessive daytime sleepiness Loud snoring Vitamin D deficiency Impaired fasting glucose Mixed dyslipidemia Morbid obesity Hiatal hernia with gastroesophageal reflux Family history of premature CAD Annual visit for general adult medical examination with abnormal findings Anxiety and depression Family History Family History Father Substance use disorder Mental health disorder Alcoholism Myocardial infarction acute, Onset Age: 55 Depression Maternal Uncle Testicular cancer Surgical History Surgical History H/O endoscopy H/O wisdom tooth extraction Social History Social History Household Members: Spouse and Children Housing: House Alcohol intake: current Alcohol intake frequency: holidays/special occasions only Patient Tobacco Use Status: Never used Tobacco e-Cigarette/Vaping Use: Never Used Use of substances other than those prescribed or required for medical reasons: Yes Substance Use Frequency: Occasionally Are you DNR?: No Advance Directives: No Advance Directives Information Provided: Yes Current occupational status: unemployed and other Sexual orientation: Straight/Heterosexual Gender identity: Female Cognitive needs: No Hearing needs: No Vision needs: Yes Meds Allergies Allergy/AdvReac Type Severity Reaction Status Date / Time latex AdvReac Mild hives Verified 09/27/23 07:13 Home Medications ?Medication ?Instructions ?Recorded ?Confirmed ?Last Taken ?Type cholecalciferol (vitamin D3) 25 25 mcg PO DAILY 05/29/22 09/27/23 Unknown History mcg (1,000 unit) capsule loratadine 10 mg tablet (Claritin) 10 mg PO DAILY 09/18/22 09/27/23 Unknown History CPAP (CPAP Machine/Device) 06/03/23 Unknown History Exam Height,Weight and Vital Signs: Height 5 ft 1 in Weight 105.687 kg Assessment and Plan Assessment Anesthesia Assessment: Chart Reviewed Documented by User: Patricia Chen, DO 09/27/23 07:45 PMF Past Medical History Medical History (Updated 09/27/23 @ 06:58 by Zoe Smallwood) HTN (hypertension) Decreased hearing of both ears Environmental and seasonal allergies Tinnitus of both ears Knee pain Excessive daytime sleepiness Loud snoring Vitamin D deficiency Impaired fasting glucose Mixed dyslipidemia Morbid obesity Hiatal hernia with gastroesophageal reflux Family history of premature CAD Annual visit for general adult medical examination with abnormal findings Anxiety and depression Family History Family History Father Substance use disorder Mental health disorder Alcoholism Myocardial infarction acute, Onset Age: 55 Depression Maternal Uncle Testicular cancer Family history of problems with anesthesia: No Surgical History Surgical History H/O endoscopy H/O wisdom tooth extraction History of Problems with Anesthesia: No Social History Social History Household Members: Spouse and Children Housing: House Alcohol intake: current Alcohol intake frequency: holidays/special occasions only Patient Tobacco Use Status: Never used Tobacco e-Cigarette/Vaping Use: Never Used Use of substances other than those prescribed or required for medical reasons: Yes Substance Use Frequency: Occasionally Are you DNR?: No Advance Directives: No Advance Directives Information Provided: Yes Current occupational status: unemployed and other Sexual orientation: Straight/Heterosexual Gender identity: Female Cognitive needs: No Hearing needs: No Vision needs: Yes Meds Allergies Allergy/AdvReac Type Severity Reaction Status Date / Time latex AdvReac Mild hives Verified 09/27/23 07:13 Home Medications ?Medication ?Instructions ?Recorded ?Confirmed ?Last Taken ?Type cholecalciferol (vitamin D3) 25 25 mcg PO DAILY 05/29/22 09/27/23 Unknown History mcg (1,000 unit) capsule loratadine 10 mg tablet (Claritin) 10 mg PO DAILY 09/18/22 09/27/23 Unknown History CPAP (CPAP Machine/Device) 06/03/23 Unknown History Exam Exam Date and Time: September 27, 2023 0741 Height,Weight and Vital Signs: Height 5 ft 1 in Weight 105.687 kg Height 5 ft 1 in Weight 109.044 kg Vital Signs Temperature 98.1 F 09/27/23 07:02 Pulse Rate 92 09/27/23 07:02 Respiratory Rate 16 09/27/23 07:02 Blood Pressure 152/93 H 09/27/23 07:02 Pulse Oximetry 99 09/27/23 07:02 Oxygen Delivery Method Room Air 09/27/23 07:02 Temperature 98.1 F 09/27/23 07:02 Pulse Rate 92 09/27/23 07:02 Respiratory Rate 16 09/27/23 07:02 Blood Pressure 152/93 H 09/27/23 07:02 Pulse Oximetry 99 09/27/23 07:02 Oxygen Delivery Method Room Air 09/27/23 07:02 Airway Mallampati Class: I TM Dist: >3cm Neck ROM: Full Loose/Missing/Broken Teeth: No (patient denies any loose or broken teeth) Heart: S1S2 Lungs: CTAB Assessment and Plan Assessment Anesthesia Assessment: Anesthesia Plan Discussed and Chart Reviewed Final Anesthetic Review Family History of Problems with Anesthesia: No History of Problems with Anesthesia: No NPO: Yes ASA Class: III Final Preanesthetic Review: No Changes in Pt Med Stat, Meds/Allgs Chart Reviewed, Consent Obtained/Reviewed and Anes Risks/Benef Reviewed Patient Risk: Intermediate Procedure Risk: Low Anesthetic Plan Anesthetic Plan: GA and Agree w/ Assess. and Plan Disposition: Standard PACU
--- NOTE | 2023-09-27 08:49 | PM.OP ---
Brief Operative Note Date of Service: 09/27/23 Pre-op diagnosis: Abnormal uterine bleeding, endometrial polyp on EMB pathology Post-op diagnosis: same (Normal endometrial cavity) Procedure: Hysteroscopy D&C Surgeon: Brian Catherine MD Anesthesia: GLMA Was an Silver Spray Worker used for this Procedure?: No Estimated blood loss (mL): 0 Pathology: other (Endometrial Scrapping.) Condition: stable Disposition: PACU
--- NOTE | 2023-09-27 08:50 | W.PM.OPN ---
Operative Note Operative Note Date of Service: 09/27/23 Narrative: Preop Diagnosis: Abnormal uterine bleeding, endometrial polyp on EMB pathology Operation: Diagnostic Hysteroscopy, Dilataion & Curettage Post Op Diagnosis: Normal endometrial and endocervical cavity, no evidence of pathology QBL: Minimal Anesthesia: GLMA Surgeon: Brian Catherine MD Lead Java Programmer: None Complication: None Pathology: Endometrial Scrapings Procedure: The patient was put in the dorsal lithotomy position, scrubbed, and draped in the usual manner. A sterile speculum was inserted in the patient's vagina. The anterior lip of the cervix was grasped with a single tooth tenaculum. The cervix was dilated up to 5 mm, then the scope was inserted in the patient's uterus. Inspection revealed normal endocervical & endometrial cavity with no evidence of pathology. The scope was taken out of the uterine cavity , then sharp curetting was carried on with no complications. At the end of the procedure, all instruments were taken out of the patient uterine and vaginal cavity. The single tooth tenaculum was removed and homeostasis was assured using pressure. The patient tolerated the procedure well and was transferred to the PACU in a stable condition.
[2023-09-27] MEDS: oxyCODONE HCl Immed Release 5 MG TABLET PO (09:55)
== END 2023-09-27 10:45 | disposition home or self-care (01) ==
PROVIDERS: Nurse Practitioner; PCP Internal Medicine; Visit Provider Obstetrics & Gynecology
PROC: 0UDB8ZZ Extraction of Endometrium, Via Natural or Artificial Opening Endoscopic (ICD-10-PCS; CPT 58558; principal; 2023-09-27 08:30)
DX: N93.9 Abnormal uterine and vaginal bleeding, unspecified (principal); N84.0 Polyp of corpus uteri
CPT/HCPCS: 58558; 81025; 88305; J1885; J2405; J2704; J3010

== ENCOUNTER → 2023-09-27 06:47 | Outpatient (BNV) | payer OTHER, SELFPAY | PROVIDERS: PCP Internal Medicine; Visit Provider Obstetrics & Gynecology | DX: N93.9 Abnormal uterine and vaginal bleeding, unspecified (principal) | CPT/HCPCS: 58558 ==

== ENCOUNTER 2023-10-04 11:32 | Emergency (ER) | payer OTHER, SELFPAY ==
--- NOTE | ~2023-10-04 | CT_ITS ---
EXAMINATION: CT ANGIOGRAM OF THE CHEST WITH AND WITHOUT CONTRAST (CT PULMONARY ANGIOGRAM FOR PE) CLINICAL INFORMATION: Reason for Exam severe R sided chest pain and back pain with dyspn COMPARISON: None available. TECHNIQUE: Prior to contrast administration, noncontrast localization images were obtained. Subsequently, multidetector volumetric imaging was performed from the thoracic inlet to below the diaphragms following the administration of 85 mL Omnipaque 350 intravenous contrast. No contrast reaction reported Sagittal, coronal, and MIP oblique sagittal reformatted images were obtained on the CT workstation, uploaded to PACS, and reviewed. This CT examination was performed using dose optimization techniques as appropriate, variously including the following: *Automated exposure control *Adjustment of mA and/or kV according to patient size (this includes techniques or standardized protocols for targeted exams where dose is matched to indication/reason for exam; i.e. extremities or head) *Use of iterative reconstruction technique Total exam dose-length product 491 mGy-cm FINDINGS: QUALITY OF STUDY/CONTRAST BOLUS: Satisfactory. PULMONARY ARTERIES: No pulmonary emboli. THORACIC AORTA: No aneurysm. LUNG: No focal consolidation. No suspicious pulmonary nodule. PLEURA: No pleural effusion or pneumothorax. MEDIASTINUM: Normal heart size. No pericardial effusion. No hilar or mediastinal lymphadenopathy. No evidence of septal bowing or right heart strain. CORONARY ARTERY CALCIFICATION: None visualized on this study. CHEST WALL/AXILLA: No axillary or internal mammary lymphadenopathy. OSSEOUS STRUCTURES: No acute or suspicious osseous abnormality. UPPER ABDOMEN: Unremarkable. No reflux of contrast into the hepatic veins to suggest elevated right heart pressures. CT/CT angio chest PE protocol IMPRESSION: No evidence of pulmonary embolus. No acute intrathoracic abnormality. VTE: negative
[2023-10-04 11:40] VITALS: BP 167/95; PULSE 106; RESP 24; TEMP 36.8; O2SAT 97; BMI 45.3
--- NOTE | 2023-10-04 11:40 | ED_ITS ---
HPI - General Adult General Chief complaint: Back Pain/Injury Stated complaint: Severe Back Pain Time Seen by Provider: 10/04/23 11:50 Source: patient Mode of arrival: ambulatory Limitations: no limitations History of Present Illness ED Provider: OMA HPI narrative: 42 yo female with PMH of depression, DARON, abnormal uterine bleeding just had hysteroscopy at the start of the week under anesthesia but does not take OCPs notes she was lifting a cat [employer]CH[employer] and developed severe R posterior to central back pain radiating to the chest with dyspnea. She notes it hurts to move and breathe. She has never had this before. MD complaint: back pain and chest pain Onset (ago): minute(s) ([employer]) Location: chest Radiation: back Severity: severe Quality: stabbing and aching Pain Consistency: constant Exacerbating factors: movement and other (inspiration) Associated symptoms: shortness of breath Treatments prior to arrival: none Related Data Home Medications ?Medication ?Instructions ?Recorded ?Confirmed cholecalciferol (vitamin D3) 25 25 mcg PO DAILY 05/29/22 09/27/23 mcg (1,000 unit) capsule loratadine 10 mg tablet (Claritin) 10 mg PO DAILY 09/18/22 09/27/23 CPAP (CPAP Machine/Device) 06/03/23 Previous Rx's ?Medication ?Instructions ?Recorded azelastine 137 mcg (0.1 %) nasal 1 spray intranasal BID PRN nasal 12/21/22 spray aerosol congestion #30 mL duloxetine 30 mg capsule,delayed 30 mg PO DAILY #90 caps 12/21/22 release hydroxyzine HCl 25 mg tablet 25 mg PO BEDTIME PRN anxiety #90 12/21/22 tabs magnesium oxide 400 mg PO DAILY 30 days #30 tabs 03/19/23 acetaminophen 500 mg capsule 1,000 mg (2 x 500 mg) PO Q6H PRN 06/26/23 fever #30 caps duloxetine 60 mg capsule,delayed 60 mg PO DAILY #90 caps 06/30/23 release lisinopril 10 1 tab PO DAILY #30 tabs 08/30/23 mg-hydrochlorothiazide 12.5 mg tablet diazepam 5 mg tablet (Valium) 5 mg PO TID PRN muscle spasm #10 10/04/23 tabs lidocaine 5 % topical patch 1 patch topical DAILY #30 ea 10/04/23 Allergies Allergy/AdvReac Type Severity Reaction Status Date / Time latex AdvReac Mild hives Verified 10/04/23 11:43 Review of Systems 2 Review of Systems: Constitutional : No Weight loss, No Fever, No Chills ENT/Mouth : No sore throat, No Rhinorrhea Eyes: No Eye Pain, No Swelling Cardiovascular : pos Chest Pain, pos SOB, no Dyspnea on Exertion, No Orthopnea, No Edema, No Palpitations Respiratory : No Cough, No Sputum Gastrointestinal : no Nausea, No Vomiting, No Diarrhea, No abdominal Pain, No Hematochezia, No Melena Genitourinary : No Dysuria, No Urinary Frequency Musculoskeletal : No joint pain, No Myalgias, No Joint Swelling Skin : No Skin Lesions, No rash Neuro : No Weakness, No Numbness, No Dizziness, No Headache Psych : No Anxiety/Panic, No Depression All other systems reviewed and are negative [facility] Past Medical History Attestation statement: The following information was validated with the patient. Source: old records reviewed Medical History HTN (hypertension) Decreased hearing of both ears Environmental and seasonal allergies Tinnitus of both ears Knee pain Excessive daytime sleepiness Loud snoring Vitamin D deficiency Impaired fasting glucose Mixed dyslipidemia Morbid obesity Hiatal hernia with gastroesophageal reflux Family history of premature CAD Annual visit for general adult medical examination with abnormal findings Anxiety and depression Surgical History H/O endoscopy H/O wisdom tooth extraction Family History Family History Father Substance use disorder Mental health disorder Alcoholism Myocardial infarction acute, Onset Age: 55 Depression Maternal Uncle Testicular cancer Social History Social History Household Members: Spouse and Children Housing: House Alcohol intake: current Alcohol intake frequency: holidays/special occasions only Patient Tobacco Use Status: Never used Tobacco e-Cigarette/Vaping Use: Never Used Advance Directives: No Advance Directives Information Provided: Yes Current occupational status: unemployed and other Sexual orientation: Straight/Heterosexual Gender identity: Female Cognitive needs: No Hearing needs: No Vision needs: Yes Physical Exam ED Vital Signs: Vital Signs - 24 hr 10/04/23 11:40 10/04/23 13:04 10/04/23 14:11 Temperature 98.2 F 99.0 F 98.6 F Pulse Rate 106 H 77 95 Respiratory Rate 24 H 12 21 H Blood Pressure 167/95 H 158/87 H 144/93 H Pulse Oximetry 97 100 99 Oxygen Delivery Method Room Air Nasal Cannula Room Air Oxygen Flow Rate 3 BMI result Body Mass Index 45.3 Appearance: Alert. Oriented X3. crying out in pain mild acute distress. Eyes: Pupils equal, round and reactive to light. ENT: Pharynx normal. Neck: Normal inspection. Neck supple. CVS: tachycardic heart rate and rhythm. Pulses normal. Respiratory: No respiratory distress. Breath sounds normal. Back: R posterior upper back ttp to palpation hurts to move and breathe Abdomen: Soft and nontender. Skin: Skin warm and dry. Normal skin color. Normal skin turgor. Extremities: No lower extremity edema. No calf ttp Neuro: Oriented X 3. No motor deficit. No sensory deficit. Course Course Course Narrative: Patient is a 42-year-old female with past medical history of hypertension who presents emergency department for evaluation. She endorses sudden onset while holding her cat of severe mid upper back pain slightly more so towards the right, with associated substernal chest pain, shortness of breath, dizziness, stomach upset. She denies any precipitating injury. States she has otherwise been feeling well prior to this onset. No history of similar pain. Exam: She appears significantly uncomfortable, tearful, clutching fist over her anterior chest, short shallow respirations, LS diminished. 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, patient to be brought back to main ED Medications Administered Discontinued Medications Generic Name Dose Route Start Last Admin Trade Name Freq PRN Reason Stop Dose Admin Diazepam 5 mg 10/04/23 12:22 10/04/23 12:26 Diazepam 10 Mg/2 Ml Cartridge IVPUSH 10/04/23 12:23 5 mg STAT STA Administration Iohexol 100 ml 10/04/23 12:28 10/04/23 12:28 Iohexol 350 Mg/Ml 100 Ml Infus..Btl IV 10/04/23 12:29 85 ml ONCE ONE Administration Ketorolac Tromethamine 15 mg 10/04/23 14:56 10/04/23 15:03 Ketorolac Tromethamine 15 Mg/Ml Vial IVPUSH 10/04/23 14:57 15 mg ONCE ONE Administration Morphine Sulfate 4 mg 10/04/23 11:54 10/04/23 12:05 Morphine Sulfate 4 Mg/Ml Cartridge IVPUSH 10/04/23 11:55 4 mg ONCE ONE Administration Protocol Ondansetron HCl 4 mg 10/04/23 11:54 10/04/23 12:05 Ondansetron Hcl 4 Mg/2 Ml Vial IVPUSH 10/04/23 11:55 4 mg ONCE ONE Administration Ondansetron HCl 4 mg 10/04/23 14:56 10/04/23 15:05 Ondansetron Hcl 4 Mg/2 Ml Vial IVPUSH 10/04/23 14:57 4 mg ONCE ONE Administration Medical Decision Making Medical Decision Making [facility] [place] Narrative: 42 yo female with PMH of depression, DARON, abnormal uterine bleeding just had hysteroscopy at the start of the week under anesthesia but does not take OCPs here with c/o abrupt onset posterior R back pain into chest with recent procedure at this time she will be given IV morphine for pain and she is very anxious as well so IV valium is ordered, STAT CTA ordered to evaluate for PE and dissection. Repeat EKG ordered as well as there was significant artifact. Differential Diagnosis Differential Diagnoses: The differential diagnosis associated with the presentation includes VTE, dissection, MSK pain which is higher on the differential Admission/Observation Consideration of admission/observation: Escalation of care including admission/observation considered trop negative, no aneurysm, dissection VTE hurts with movement suspect MSK in nature Lab Data [facility] [place] Lab Attestation statement: I reviewed the patient's lab results. 10/04/23 12:13 10/04/23 12:13 Labs: Lab Results 10/04/23 10/04/23 10/04/23 Range/Units 12:12 12:13 14:56 WBC 8.9 (4.8-10.8) X10*3/uL RBC 4.46 (4.20-5.50) X10*6/uL Hgb 13.9 (12.0-16.0) g/dl Hct 38.5 (37.0-47.0) % MCV 86.3 (80.0-98.0) fL MCH 31.2 (27.0-33.0) pg MCHC 36.1 H (31.0-35.0) g/dl RDW 13.5 (11.0-16.0) % Plt Count 300 (160-400) X10*3/uL MPV 8.9 L (9.4-12.3) fL Immature Gran % (Auto) 0.3 (0.0-0.4) % Neut % (Auto) 61.7 (45-73) % Lymph % (Auto) 27.9 (20-40) % [place] % (Auto) 4.4 (2-11) % Eos % (Auto) 5.1 H (0-4) % Baso % (Auto) 0.6 (0-2) % Lymph # (Auto) 2.5 (1.2-4.9) X10*3/uL [place] # (Auto) 0.4 (0.1-1.2) X10*3/uL Eos # (Auto) 0.5 H (0.0-0.4) X10*3/uL Baso # (Auto) 0.1 (0.0-0.2) X10*3/uL Abs Immat Gran (auto) 0.03 (0.00-0.03) X10*3/uL Absolute Neuts (auto) 5.5 (2.0-8.3) x10*3/uL Absolute Nucleated RBC 0.000 (0.0-0.012) X10*3/uL Nucleated RBC % (auto) 0.0 (0.0-0.2) /100WBC PT 10.7 L (11.1-13.3) SEC INR 0.9 (0.9-1.1) Sodium 139 (135-145) mmol/L Potassium 4.1 (3.3-5.1) mmol/L Chloride 105 (96-108) mmol/L Carbon Dioxide 25 (22-29) mmol/L Anion Gap 13 (12-20) BUN 11 (9-16) mg/dL Creatinine 0.84 (0.5-1.4) mg/dL Estim Creat Clear Calc 100.5 Estimated GFR > 60 Random Glucose 108 (60-115) mg/dL Calcium 9.8 D (8.4-10.2) mg/dL Magnesium 2.1 (1.6-2.6) mg/dL Total Bilirubin 1.2 H (0.0-1.0) mg/dL AST 19 (5-31) U/L ALT 18 (0-31) U/L Alkaline Phosphatase 61 (39-117) U/L Troponin I High Sens < 2.7 < 2.7 (<3.5-17.0) ng/L B-Natriuretic Peptide < 10 (<100) pg/mL Total Protein 7.8 (6.5-8.0) g/dL Albumin 4.6 (3.5-5.0) g/dL Lipase 21 (8-78) U/L Independent Interpretation I performed an independent interpretation of an: EKG and CT Scan (no dissection or VTE) Interpretation: Rate: 90 Rhythm: NSR [place]: left Normal P waves. Normal MICHELLE. Normal QRS complex. ST T wave : no ANEL, nonspecific ST T wave changes lateral leads but artifact noted qTC: 445 prior studies: no prior The study has been interpreted contemporaneously by me. . repeat for less artifact Rate: 76 Rhythm: NSR [place]: left Normal P waves. Normal MICHELLE. Normal QRS complex. ST T wave : nonspecific flattening ST seg V3-V4 but no ANEL or depression qTC: 454 prior studies: no acute ischemia The study has been interpreted contemporaneously by me. . Radiology Impression Discussion of test interpretation with radiology: I have reviewed the radiologist's reading. Independent Historian Clinical information obtained from an independent historian. History obtained from or confirmed by: Spouse Prescription Management I considered prescription management with: Pain Medication and Other Critical Care Time Critical Care Time Critical Care Time: Yes Total Critical Care Time: 60 Attestation: IV morphine and valium for pain with improvement in symptoms, review of records, stat sent to CTA for PE/aneurysm, repeat assessments I attest to this time spent taking care of the patient Discharge Plan Discharge Clinical Impression: Atypical chest pain Acute thoracic back pain Qualifiers: Back pain laterality: right Qualified Code(s): M54.6 - Pain in thoracic spine Instructions: Chest Pain (ED), Thoracic Pain (ED) Additional Instructions: heart tests in blood x 2 normal test of chest for aneurysm and tearing of blood vessel, collapsed lung, fracture, blood clots negative suspect that you pulled something in your back. please return for any worsening symptoms such as fever, increased pain, numbness, weakness, fevers. follow up with your doctor. limit lifting to 10lbs for the next one week Prescriptions: New lidocaine 5 % adhesive patch,medicated 1 patch topical DAILY Qty: 30 0RF Rx Instructions: leave on most painful area for up to 12 hrs diazepam [Valium] 5 mg tablet 5 mg PO TID PRN (Reason: muscle spasm) Qty: 10 0RF Rx Instructions: partial fill is okay No Action duloxetine 60 mg capsule,delayed release(DR/EC) 60 mg PO DAILY Qty: 90 1RF lisinopril-hydrochlorothiazide 10-12.5 mg tablet 1 tab PO DAILY Qty: 30 1RF duloxetine 30 mg capsule,delayed release(DR/EC) 30 mg PO DAILY Qty: 90 3RF hydroxyzine HCl 25 mg tablet 25 mg PO BEDTIME PRN (Reason: anxiety) Qty: 90 1RF azelastine 137 mcg (0.1 %) aerosol,spray 1 spray intranasal BID PRN (Reason: nasal congestion) Qty: 30 0RF Rx Instructions: administer into each nostril acetaminophen 500 mg capsule 1,000 mg PO Q6H PRN (Reason: fever) Qty: 30 0RF cholecalciferol (vitamin D3) 25 mcg (1,000 unit) capsule 25 mcg PO DAILY (DME) CPAP Machine/Device Device See Rx Instructions .Route Rx Instructions: As directed loratadine [Claritin] 10 mg tablet 10 mg PO DAILY magnesium oxide 400 mg magnesium tablet 400 mg PO DAILY 30 Days Qty: 30 3RF Stand Alone Forms: Work/School Release Print Language: Nepali
--- NOTE | 2023-10-04 11:48 | ECG_ITS ---
Test Reason : CHEST PAIN Blood Pressure : / mmHG Vent. Rate : 090 BPM Atrial Rate : 090 BPM P-R Int : 118 ms QRS Dur : 076 ms QT Int : 364 ms P-R-T Axes : 059 -22 004 degrees QTc Int : 445 ms Normal sinus rhythm Minimal voltage criteria for LVH, may be normal variant ( R in aVL ) Nonspecific ST abnormality Abnormal ECG No previous ECGs available Referred By: Generic ED Physician Electronically Signed By:VICTOR M SOLORZANO
[2023-10-04] MEDS: ondansetron HCL 4 MG/2 ML VIAL IVPUSH ×2 (12:05→15:05)
[2023-10-04] MEDS: Morphine Sulfate 4 MG/ML CARTRIDGE IVPUSH (12:05)
[2023-10-04 12:17] LABS: MANUAL DIFF FLAG NO
[2023-10-04 12:18] LABS: Basophils Absolute Auto 0.1 X10*3/uL (0.0-0.2); Basophils Percent Auto 0.6 % (0-2); Eosinophils Absolute Auto 0.5 X10*3/uL (0.0-0.4); Eosinophils Percent Auto 5.1 % (0-4); Hematocrit 38.5 % (37.0-47.0); Hemoglobin 13.9 g/dl (12.0-16.0); Imm Gran Abs Auto 0.03 X10*3/uL (0.00-0.03); Imm Gran Pct Auto 0.3 % (0.0-0.4); Lymphocytes Absolute Auto 2.5 X10*3/uL (1.2-4.9); Lymphocytes Percent Auto 27.9 % (20-40); Mean Corpuscular HGB Conc 36.1 g/dl (31.0-35.0); Mean Corpuscular Hemoglobin 31.2 pg (27.0-33.0); Mean Corpuscular Volume 86.3 fL (80.0-98.0); Mean Platelet Volume 8.9 fL (9.4-12.3); Monocytes Absolute Auto 0.4 X10*3/uL (0.1-1.2); Monocytes Percent Auto 4.4 % (2-11); Neutrophils Absolute Auto 5.5 x10*3/uL (2.0-8.3); Neutrophils Percent Auto 61.7 % (45-73); Platelet Count 300 X10*3/uL (160-400); Red Blood Count 4.46 X10*6/uL (4.20-5.50); Red Cell Distribution Width 13.5 % (11.0-16.0); White Blood Count 8.9 X10*3/uL (4.8-10.8)
[2023-10-04] MEDS: diazePAM 10 MG/2 ML CARTRIDGE 5 MG IVPUSH (12:26)
[2023-10-04] MEDS: iohexoL 350 MG/ML 100 ML INFUS..BTL IV (12:28)
[2023-10-04 12:30] LABS: INTERNATIONAL NORM RATIO 0.9 (0.9-1.1); Prothrombin Time 10.7 SEC (11.1-13.3)
[2023-10-04 12:39] LABS: Alanine Aminotransferase 18 U/L (0-31); Albumin Level 4.6 g/dL (3.5-5.0); Alkaline Phosphatase 61 U/L (39-117); Anion Gap 13 (12-20); Aspartate Amino Transferase 19 U/L (5-31); Bilirubin Total 1.2 mg/dL (0.0-1.0); Blood Urea Nitrogen 11 mg/dL (9-16); Calcium 9.8 mg/dL (8.4-10.2); Carbon Dioxide 25 mmol/L (22-29); Chloride 105 mmol/L (96-108); Creatinine Clr Calc Pharmacy 100.5; Estimated Glomerular Filt Rate > 60; Glucose Random 108 mg/dL (60-115); Lipase 21 U/L (8-78); Magnesium 2.1 mg/dL (1.6-2.6); Potassium 4.1 mmol/L (3.3-5.1); Sodium 139 mmol/L (135-145); Total Protein 7.8 g/dL (6.5-8.0)
[2023-10-04 12:44] LABS: B Type Natriuretic Peptide < 10 pg/mL (<100)
[2023-10-04 12:50] LABS: Troponin-I High Sensitivity < 2.7 ng/L (<3.5-17.0)
--- NOTE | 2023-10-04 13:01 | ECG_ITS ---
Test Reason : chest pain Blood Pressure : / mmHG Vent. Rate : 076 BPM Atrial Rate : 076 BPM P-R Int : 112 ms QRS Dur : 086 ms QT Int : 404 ms P-R-T Axes : 046 -21 011 degrees QTc Int : 454 ms Poor data quality, interpretation may be adversely affected Normal sinus rhythm Minimal voltage criteria for LVH, may be normal variant ( R in aVL ) Borderline ECG When compared with ECG of 04-OCT-2023 11:59, No significant change was found Referred By: Shama Mccoy Electronically Signed By:VICTOR M SOLORZANO
[2023-10-04 13:04] VITALS: BP 158/87; PULSE 77; RESP 12; TEMP 37.2; O2SAT 100
[2023-10-04 14:11] VITALS: BP 144/93; PULSE 95; RESP 21; TEMP 37; O2SAT 99
[2023-10-04] MEDS: Ketorolac Tromethamine 15 MG/ML VIAL IVPUSH (15:03)
[2023-10-04 15:44] LABS: Troponin-I High Sensitivity < 2.7 ng/L (<3.5-17.0)
[2023-10-04] MEDS: Lidocaine 4 % Patch ADH..PATCH 1 PATCH TRANSDERMA (16:04)
[2023-10-04 16:14] VITALS: BP 114/80; PULSE 88; RESP 16; TEMP 36.6; O2SAT 98
== END 2023-10-04 16:16 | disposition home or self-care (01) ==
PROVIDERS: Nurse Practitioner Family; Emergency Provider Emergency Medicine; PCP Internal Medicine
DX: R07.89 Other chest pain (principal); M54.50 Low back pain, unspecified; R07.81 Pleurodynia; R06.02 Shortness of breath; Z79.899 Other long term (current) drug therapy
CPT/HCPCS: 36415; 71275; 80053; 83690; 83735; 83880; 84484; 85025; 85610; 93005; 96374; 96375; 96376; 99284; J1885; J2270; J2405; J3360; Q9967

== ENCOUNTER → 2023-10-04 11:48 | Outpatient (BNV) | payer OTHER, SELFPAY | PROVIDERS: Emergency Provider Emergency Medicine; PCP Internal Medicine; Visit Provider Internal Medicine | DX: R94.31 Abnormal electrocardiogram [ECG] [EKG] (principal) | CPT/HCPCS: 93010 ==

== ENCOUNTER 2023-10-14 12:21 | Outpatient (AMB) | payer OTHER, SELFPAY ==
--- NOTE | 2023-10-14 12:26 | A.OFFVIS_ITS ---
Intake Visit Reasons: post op Allergies latex Adverse Reaction (Mild, Verified 10/04/23 11:43) hives HPI Comments Details: The patient is presenting post hysteroscopy D&C no complaints minimal vaginal bleeding no feverishness chills or abdominal pain. The pathology showed the following: Endometrium, curettage: Benign dyssynchronous endometrium with proliferative and secretory glands; no atypia or carcinoma The following workup was done.: H&H= 13.9/38.5 TSH, prolactin, hCG, GC and chlamydia were negative. Hysteroscopy showed normal endometrial cavity with no evidence of pathology Office Endometrial biopsy pathology showed the following: Endometrium, biopsy: Benign proliferative endometrium with extensive glandular and stromal breakdown, and focal benign endocervical glandular epithelium; no atypia or carcinoma. Comment: Some fragments may be derived from benign polyps Co testing was done in 06/14 was negative. Mammogram was BI-RADS 2 in 04/13. Pelvic ultrasound showed the following: IMPRESSION: 1. Nabothian cysts are seen within the cervix. 2. There is a small amount of nonspecific free fluid seen within the endometrial canal. 3. A small amount of nonspecific free fluid is seen adjacent to the left ovary. [facility] Medical History HTN (hypertension) Decreased hearing of both ears Environmental and seasonal allergies Tinnitus of both ears Knee pain Excessive daytime sleepiness Loud snoring Vitamin D deficiency Impaired fasting glucose Mixed dyslipidemia Morbid obesity Hiatal hernia with gastroesophageal reflux Family history of premature CAD Annual visit for general adult medical examination with abnormal findings Anxiety and depression Surgical History H/O endoscopy H/O wisdom tooth extraction Family History Father Substance use disorder Mental health disorder Alcoholism Myocardial infarction acute, Onset Age: 55 Depression Maternal Uncle Testicular cancer Social History Household Members: Spouse and Children Housing: House Alcohol intake: current Alcohol intake frequency: holidays/special occasions only Patient Tobacco Use Status: Never used Tobacco e-Cigarette/Vaping Use: Never Used Current occupational status: unemployed and other Sexual orientation: Straight/Heterosexual Gender identity: Female Cognitive needs: No Hearing needs: No Vision needs: Yes Review of Systems Const All systems reviewed & are unremarkable except as noted in HPI and below Reports as per HPI and Reports no additional complaints GI Reports no additional complaints Reports no additional complaints Assessment & Plan Assessment & Plan (1) Abnormal uterine bleeding: Code(s): N93.9 - Abnormal uterine and vaginal bleeding, unspecified Category: Medical Plan: Discussed with the patient the results of the work up done and options of treatment including Lysteda, control pills, Mirena IUD, endometrial ablation and hysterectomy. All pros, cons, risks and benefits if each option was discussed with the patient and the patient decided to go ahead with Mirena IUD so a more detailed discussion about it was conducted including mechanism of action, risks (uterine perforation, infection, injury to bladder, bowel, displacement, and others) benefits (hypo menorrhea, amenorrhea, ...). GC/CT were recently taken and the patient was instructed to schedule Mirena IUD insertion on day 1-5 of next cycle . All questions answered, the patient verbalized understanding Coding Level of Care Code Est Pt Level 3 (89745) Diagnoses Abnormal uterine bleeding N93.9
== END 2023-10-14 12:39 | disposition home or self-care (01) ==
PROVIDERS: PCP Internal Medicine; Visit Provider Obstetrics & Gynecology
DX: N93.9 Abnormal uterine and vaginal bleeding, unspecified (principal)
CPT/HCPCS: 99213

== ENCOUNTER → 2023-10-14 12:21 | Outpatient (BNVA) | payer OTHER, SELFPAY | PROVIDERS: PCP Internal Medicine; Visit Provider Obstetrics & Gynecology | DX: N93.9 Abnormal uterine and vaginal bleeding, unspecified (principal); Z98.890 Other specified postprocedural states | CPT/HCPCS: 99212 ==

== ENCOUNTER 2023-11-18 07:30 | Outpatient (REF) | payer OTHER, SELFPAY ==
--- NOTE | ~2023-11-18 | CT_ITS ---
EXAMINATION: CT SINUSES without contrast CLINICAL INFORMATION: Sinonasal polyp COMPARISON: None TECHNIQUE: Multidetector helical imaging was performed in the axial plane with generation of coronal and sagittal reformatted images. This CT examination was performed using dose optimization techniques as appropriate, variously including the following: *Automated exposure control *Adjustment of mA and/or kV according to patient size (this includes techniques or standardized protocols for targeted exams where dose is matched to indication/reason for exam; i.e. extremities or head) *Use of iterative reconstruction technique CONTRAST: Noncontrasted study. FINDINGS: MAXILLARY: Circumferential wall thickening and mucosal lining of the maxillary sinuses bilaterally left more than right suggesting chronic sinusitis. OSTIOMEATAL UNITS: Ostiomeatal units infundibulum are occluded bilaterally. ETHMOIDAL AIR CELLS: Most of the ethmoidal air cells are opacified. SPHENOIDAL AIR CELLS: There is a mucosal thickening of the floor of the sphenoidal air cells bilaterally. FRONTAL AIR CELLS AND DRAINAGES: Mucosal thickening of the floor of the frontal air cells including the frontal air cells and drainages. NASAL CAVITY: Area within the left middle turbinate conchal bullosa. Minimal S-shaped curvature of the nasal septum without significant deviation. SURROUNDING SOFT TISSUE: The adjacent orbits and the surrounding soft tissue is otherwise normal. FRONTAL SINUSES AND DRAINAGE PATHWAYS: Normal. MAXILLARY SINUSES AND DRAINAGE PATHWAYS: Normal. The infundibula are patent. 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 The orbits and skull base soft tissues are unremarkable. The middle ear cavities and mastoid air cells are clear. Limited evaluation demonstrates no acute intracranial findings. CT/CT sinus wo IV con IMPRESSION: 1. Circumferential wall thickening and mucosal lining of the maxillary sinuses bilaterally left more than right suggesting chronic sinusitis. 2. Ostiomeatal units are occluded bilaterally. 3. Most of the ethmoidal air cells are opacified, cannot rule out underlying polyposis.. 4. Mucosal thickening of the floor of the frontal air cells and sphenoidal air cells bilaterally. 5. Mild S-shaped curvature of the nasal septum without significant deviation. 6. 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 7. Air within the left middle turbinate conchal bullosa.
== END 2023-11-18 07:31 | disposition home or self-care (01) ==
LOC: HO.CT 07:30
PROVIDERS: Visit Provider Otolaryngology
DX: J33.0 Polyp of nasal cavity (principal)
CPT/HCPCS: 70486; 99212

== ENCOUNTER 2023-11-18 10:32 | Outpatient (AMB) | payer OTHER, SELFPAY ==
--- NOTE | 2023-11-18 10:46 | MHC.OFFVIS ---
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 The following workup was done.: H&H= 13.9/38.5 TSH, prolactin, hCG, GC and chlamydia were negative. Endometrial biopsy pathology showed no evidence of hyperplasia and/or malignancy. Co testing was done in 06/14 was negative. Mammogram was done in 04/13 was BI-RADS 2. Pelvic ultrasound was unremarkable [facility] Medical History HTN (hypertension) Decreased hearing of both ears Environmental and seasonal allergies Tinnitus of both ears Knee pain Excessive daytime sleepiness Loud snoring Vitamin D deficiency Impaired fasting glucose Mixed dyslipidemia Morbid obesity Hiatal hernia with gastroesophageal reflux Family history of premature CAD Annual visit for general adult medical examination with abnormal findings Anxiety and depression Surgical History H/O endoscopy H/O wisdom tooth extraction Family History Father Substance use disorder Mental health disorder Alcoholism Myocardial infarction acute, Onset Age: 55 Depression Maternal Uncle Testicular cancer Social History Household Members: Spouse and Children Housing: House Alcohol intake: current Alcohol intake frequency: holidays/special occasions only Patient Tobacco Use Status: Never used Tobacco e-Cigarette/Vaping Use: Never Used Current occupational status: unemployed and other Sexual orientation: Straight/Heterosexual Gender identity: Female Cognitive needs: No Hearing needs: No Vision needs: Yes Female Reproductive History Menstrual Date of last menstrual period: 11/04/23 Review of Systems Const All systems reviewed & are unremarkable except as noted in HPI and below Reports as per HPI and Reports no additional complaints GI Reports no additional complaints Reports no additional complaints Assessment & Plan Assessment & Plan (1) Abnormal uterine bleeding: Code(s): N93.9 - Abnormal uterine and vaginal bleeding, unspecified Category: Medical Plan: Discussed with the patient the results of the work up done and options of treatment including Lysteda, BCP's, Mirena IUD, endometrial ablation and hysterectomy. All pros, cons, risks and benefits if each option was discussed with the patient and the patient decided to think about it and get back to us. All questions answered the patient verbalized understanding. Coding Level of Care Code Est Pt Level 3 (87338) Diagnoses Abnormal uterine bleeding N93.9
[2023-11-18 10:53] VITALS: BP 120/90; BMI 45.0
== END 2023-11-18 11:10 | disposition home or self-care (01) ==
PROVIDERS: PCP Internal Medicine; Visit Provider Obstetrics & Gynecology
DX: N93.9 Abnormal uterine and vaginal bleeding, unspecified (principal)
CPT/HCPCS: 99213

== ENCOUNTER 2023-12-02 11:00 | Outpatient (AMB) | payer OTHER, SELFPAY ==
--- NOTE | 2023-12-02 11:10 | A.OFFVIS_ITS ---
Intake Visit Reasons: Mirena insertion Allergies latex Adverse Reaction (Mild, Verified 11/18/23 10:54) hives HPI Comments Details: Presenting for Mirena IUD insertion [facility] Medical History HTN (hypertension) Decreased hearing of both ears Environmental and seasonal allergies Tinnitus of both ears Knee pain Excessive daytime sleepiness Loud snoring Vitamin D deficiency Impaired fasting glucose Mixed dyslipidemia Morbid obesity Hiatal hernia with gastroesophageal reflux Family history of premature CAD Annual visit for general adult medical examination with abnormal findings Anxiety and depression Surgical History H/O endoscopy H/O wisdom tooth extraction Family History Father Substance use disorder Mental health disorder Alcoholism Myocardial infarction acute, Onset Age: 55 Depression Maternal Uncle Testicular cancer Social History Household Members: Spouse and Children Housing: House Alcohol intake: current Alcohol intake frequency: holidays/special occasions only Patient Tobacco Use Status: Never used Tobacco e-Cigarette/Vaping Use: Never Used Current occupational status: unemployed and other Sexual orientation: Straight/Heterosexual Gender identity: Female Cognitive needs: No Hearing needs: No Vision needs: Yes Review of Systems Const All systems reviewed & are unremarkable except as noted in HPI and below Reports as per HPI and Reports no additional complaints GI Reports no additional complaints Reports no additional complaints Office Procedures IUD Insert/Removal Details Details: The patient is presenting for Mirena IUD insertion Urine test was done in the office and was negative; All the contraindications were excluded. The following possible complications were discussed with the patient: Intrauterine , Ectopic , Sepsis, Pelvic Infection, Irregular Bleeding and Amenorrhea, Perforation, Expulsion, Ovarian Cysts, Breast Cancer, The following adverse effects were discussed with the patient: alteration of menstrual bleeding pattern, including: unscheduled uterine bleeding decreased uterine bleeding increased scheduled uterine bleeding female genital tract bleeding ,amenorrhea , genital discharge , vulvovaginitis , breast pain , benign ovarian cyst and associated complications , dysmenorrhea , Gastrointestinal disorders abdominal/pelvic pain, headache/migraine , back pain , acne , depression Alternative options were discussed with the patient including but not limited: control pills, patch, NuvaRing, Depo-medroxyprogesterone acetate, Nexplanon, copper IUD, sterilization, vasectomy, others The procedure was explained in detail to patient , at the end patient signed the informed consent obtained. A no touch technique was used throughout the procedure. A speculum was placed into vagina and cervix was cleaned with betadine). A tenaculum was placed. A plastic sound was advanced through the external and internal os until it reached the fundus of the uterus, the depth was 8 cm. The sound was then withdrawn. The IUD was loaded in a sterile manner and advanced into position. The string was visualized and cut to 3 cm. Tenaculum site hemostatic. All instruments removed from vagina. Patient tolerated the procedure well. NO complications were noted. Patient was instructed to call for fever over 100.4, significant pain unrelieved by Motrin, IUD expulsion, heavy bleeding, or abnormal discharge. In addition, the following clinical considerations were discussed with the patient to call for removal: A stroke or heart attack ,Very severe or migraine headaches ,Unexplained fever ,Yellowing of the skin or whites of the eyes, as these may be signs of serious liver problems , or suspected , Pelvic pain or pain during sex ,HIV positive seroconversion in herself or her partner , Possible exposure to sexually transmitted infections Unusual vaginal discharge or genital sores , severe vaginal bleeding or bleeding that lasts a long time, or if she misses a menstrual period, Inability to feel Mirena's threads Counseled the patient that the IUD does not protect against STI's, recommended use of condoms for the first 7 days post insertion and explained to the patient that condoms are recommended for patients at risk for sexually transmitted infections. Informed the patient that Mirena IUD is FDA approved for 8 years for contraception for 5 years for the treatment of heavy menses Instructed the patient to schedule a Follow up appointment in 4 to 6 weeks following insertion. This note was generated with a voice recognition program. Some errors may have been overlooked during the review of this note. Sometimes these errors may affect the content or meaning of a given sentence. 26004-RUG Insertion Procedure code (CPT) selection complete Office Meds Mirena 21 mcg/24 hr (up to 8 years) 52 mg intrauterine device Performing Provider: Brian Catherine MD Performing Location: [facility] [place] [facility] Documented (not given) by: Brian Catherine MD on 12/02/23 11:44 Dose Route Admin Location Dispensed Lot Number Expiration Date NDC Extrusion Line Operator 1 device intrauterine ea Assessment & Plan Assessment & Plan (1) Encounter for insertion of Mirena IUD: Code(s): Z30.430 - Encounter for insertion of intrauterine contraceptive device Category: Medical Plan: Mirena IUD inserted, see procedure note Orders: Orders AMB IUD Insertion/Removal - Practice Supplied Today Z30.430 - Encounter for insertion of intrauterine contraceptive device Medications: New Mirena (levonorgestrel) 1 device intrauterine ONCE 1 ea 0RF NS Z30.430 - Encounter for insertion of intrauterine contraceptive device Coding Level of Care Code Procedure Only Diagnoses Encounter for insertion of Mirena IUD Z30.430 CPT Codes Details - CPT: 34165-HNS Insertion ([id number])
== END 2023-12-02 11:47 | disposition home or self-care (01) ==
PROVIDERS: PCP Internal Medicine; Visit Provider Obstetrics & Gynecology
DX: Z30.430 Encounter for insertion of intrauterine contraceptive device (principal); Z32.02 Encounter for pregnancy test, result negative
CPT/HCPCS: 58300

== ENCOUNTER → 2023-12-02 11:00 | Outpatient (BNVA) | payer OTHER, SELFPAY | PROVIDERS: PCP Internal Medicine; Visit Provider Obstetrics & Gynecology | DX: Z30.430 Encounter for insertion of intrauterine contraceptive device (principal) | CPT/HCPCS: 58300; 81025; J7298 ==

== ENCOUNTER 2023-12-18 14:26 | Outpatient (REF) | payer OTHER, SELFPAY ==
--- NOTE | ~2023-12-18 | US_ITS ---
EXAMINATION: US PELVIC COMPLETE WITH TV CLINICAL INFORMATION: Pelvic pain COMPARISON: Ultrasound of the pelvis on 06/19/2023 TECHNIQUE: Real-time transabdominal and transvaginal ultrasound scanning. FINDINGS: Transabdominal and transvaginal ultrasound examination of the pelvis were performed. Uterus: Anteverted; measuring 11.1 cm in length, 5.2 cm in AP diameter and 5.1 cm in width. Uterine cervix measures 2.8 cm in length. Echotexture: normal sonographic appearance Endometrial Thickness: 0.97 cm. Linear echogenicities corresponding to T shaped intrauterine contraceptive device are seen in optimal position. Right ovary: 5.9 x 4.4 x 4.9 cm (SAG x AP x TRV), calculated volume of 66.5 mL, with normal echotexture. Anechoic simple cyst is seen measuring 4.3 x 3.2 x 4.0 cm in size. Previously 2.2 x 1.6 x 2.7 cm (SAG x AP x TRV), calculated volume of 5.1 mL Left ovary: 1.6 x 1.6 x 1.8 cm (SAG x AP x TRV), calculated volume of 2.4 mL, with normal echotexture. Previously 3.2 x 2.0 x 1.8 cm (SAG x AP x TRV), calculated volume of 5.8 mL No free fluid is present. Limited view of the urinary bladder shows no abnormality. US/US pelvic and transvaginal IMPRESSION: 1. Interval placement of Intrauterine contraceptive device in optimal position. 2. Interval asymmetric enlargement of the right ovary containing Simple right ovarian cyst measuring 4.3 cm in size. 3. Interval resolution of left ovary. Cysts or follicles. Normal left ovary. 4. Findings are overwhelmingly likely to represent a benign functional cyst. No followup imaging recommended. Electronically signed by: Deny Moore MD 12/18/2023 05:03 PM EDT
== END 2023-12-18 14:27 | disposition home or self-care (01) ==
LOC: HO.US 14:26
PROVIDERS: PCP Internal Medicine; Visit Provider Obstetrics & Gynecology
DX: T83.84XA Pain due to genitourinary prosthetic devices, implants and grafts, initial encounter (principal)
CPT/HCPCS: 76830; 76856; 81003; 99212

== ENCOUNTER 2023-12-18 15:04 | Outpatient (AMB) | payer OTHER, SELFPAY ==
--- NOTE | 2023-12-18 15:45 | A.OFFVIS_ITS ---
Vital Signs 12/18/23 15:53 Height 5 ft 1 in Weight 238 lb 1.588 oz BMI 45.0 Intake Visit Reasons: IUD issues Php Wordpress Developer Required: No Information Interpreted: non-clinical & clinical Economic Research Assistant: Economic Research Assistant Present (Vicky BERNABE) Accompanied by: Daughter Allergies latex Adverse Reaction (Mild, Verified 12/18/23 15:53) hives Is last menstrual period known: No (mirena) HPI Comments Details: Presenting complaining of pelvic pain that started in the morning with no associated vaginal discharge GI or symptoms, the pain has improved since then [facility] Medical History HTN (hypertension) Decreased hearing of both ears Environmental and seasonal allergies Tinnitus of both ears Knee pain Excessive daytime sleepiness Loud snoring Vitamin D deficiency Impaired fasting glucose Mixed dyslipidemia Morbid obesity Hiatal hernia with gastroesophageal reflux Family history of premature CAD Annual visit for general adult medical examination with abnormal findings Anxiety and depression Surgical History H/O endoscopy H/O wisdom tooth extraction Family History Father Substance use disorder Mental health disorder Alcoholism Myocardial infarction acute, Onset Age: 56 Depression Maternal Uncle Testicular cancer Social History Household Members: Spouse and Children Housing: House Alcohol intake: current Alcohol intake frequency: holidays/special occasions only Patient Tobacco Use Status: Never used Tobacco e-Cigarette/Vaping Use: Never Used Current occupational status: unemployed and other Sexual orientation: Straight/Heterosexual Gender identity: Female Cognitive needs: No Hearing needs: No Vision needs: Yes Review of Systems Const All systems reviewed & are unremarkable except as noted in HPI and below Physical Exam Vital Signs: BMI result Body Mass Index 45.0 General: Yes no CVA tenderness External Female Exam: normal external appearance and normal appearance of the urethra Speculum Exam - Vagina: normal appearance of the vagina, normal palpation, no lesions and no masses Speculum Exam - Cervix: normal appearance of the cervix, normal palpation, no lesions, no masses, nontender and Other cervical findings present (IUD string in place) Bimanual exam- vagina & uterus: normal bimanual exam, normal palpation, uterine size normal, normal palpation, uterine shape normal, No Cervical tenderness present and non-tender Bimanual Exam- Adnexa, other: normal adnexae Back/Spine/Pelvis Back: no CVA tenderness Results AMB Urinalysis, Automated UA Leukoctes 0 Ro/uL Last Edit by Justine Yanglance [facility] on 12/18/23 16:17 UA Nitrite Negative Last Edit by Justine Ortiz [facility] on 12/18/23 16:17 UA Urobilinogen 0 mg/dL Last Edit by Justine Julissa Gumarotracy [facility] on 12/18/23 16:1 7 UA Protein 0 mg/dL Last Edit by Justine Julissa Gumarotracy [facility] on 12/18/23 16:17 UA pH 6.0 Last Edit by Justine Julissa Gumarotracy [facility] on 12/18/23 16:17 UA Blood 3 Angel/uL Last Edit by Justine Julissa Gumarotracy [facility] on 12/18/23 16:17 UA Specific [place] 1.010 Last Edit by Justinejohnny Ortiz [facility] on 12/18/23 16:17 UA Ketone Negative Last Edit by Justine Naiktracy [facility] on 12/18/23 16:17 UA Bilirubin 0 mg/dL Last Edit by Justine Julissa Ortiz [facility] on 12/18/23 16:17 UA Glucose 0 mg/dL Last Edit by Justine Julissa Gumarotracy [facility] on 12/18/23 16:17 Assessment & Plan Assessment & Plan (1) Pelvic pain: Code(s): R10.2 - Pelvic and perineal pain Category: Medical Plan: Urine test done in the office was negative. GC and chlamydia taken and pelvic ultrasound ordered. Discussed with the patient the differential diagnosis of pelvic pain including but not limited to adnexal, uterine masses, pelvic infections (PID), GI the (Irritable bowel syndrome, diverticulitis, others), musculoskeletal, myofascial pain abdominal wall , adhesions, endometriosis, psychological and others causes. Will check results and treat accordingly. All questions answered, the patient verbalized understanding. Instructed the patient to schedule follow-up appointment in 2 weeks (2) Microscopic hematuria: Code(s): R31.29 - Other microscopic hematuria Category: Medical Plan: Urine dip showed microscopic hematuria, urine culture sent. Will repeat urine dip in 2 weeks. Discussed with the patient the possible causes of microscopic hematuria including but not limited to: interstitial cystitis, polyps, stones, masses, urethral inflammatory processes and others. If Urine Culture is ne gative and repeat urine dip in 2 weeks shows persistent microscopic hematuria, will proceed with CT abdomen/pelvis and urology referral. Instructions given the patient to schedule a 2 week urine dip follow-up appointment. All questions answered and the patient verbalized understanding. Orders: Orders US pelvic and transvaginal Today T83.84XA - Pain due to genitourinary prosthetic devices, implants and grafts, initial encounter AMB Urinalysis Automated Today R10.2 - Pelvic and perineal pain CT NG by PCR Today R10.2 - Pelvic and perineal pain Coding Level of Care Code Est Pt Level 3 (21792) Diagnoses Pelvic pain R10.2 Microscopic hematuria R31.29
[2023-12-18 15:53] VITALS: BMI 45.0
== END 2023-12-18 16:11 | disposition home or self-care (01) ==
LOC: HO.HWS 15:04
PROVIDERS: PCP Internal Medicine; Visit Provider Obstetrics & Gynecology
DX: R10.2 Pelvic and perineal pain (principal); R31.29 Other microscopic hematuria
CPT/HCPCS: 99213

== ENCOUNTER 2023-12-18 16:09 | Outpatient (REF) | payer OTHER, SELFPAY ==
[2023-12-19 05:48] LABS: CT PCR NOT DETECTED (Not Detect.); NG PCR NOT DETECTED (Not Detect.)
== END 2023-12-18 16:10 | disposition home or self-care (01) ==
LOC: HO.LNP 16:09
PROVIDERS: Visit Provider Obstetrics & Gynecology
DX: R10.2 Pelvic and perineal pain (principal)
CPT/HCPCS: 87086; 87147; 87491; 87591

== ENCOUNTER 2023-12-18 16:09 | Outpatient (REF) | payer OTHER, SELFPAY | END 2023-12-18 16:10 | disposition home or self-care (01) | LOC: HO.LAB 16:09 | PROVIDERS: Visit Provider Obstetrics & Gynecology | DX: Z13.89 Encounter for screening for other disorder (principal) ==

== ENCOUNTER 2024-01-01 10:31 | Outpatient (AMB) | payer OTHER, SELFPAY ==
[2024-01-01 10:39] VITALS: BMI 45.0
--- NOTE | 2024-01-01 10:39 | MHC.OFFVIS ---
Vital Signs 01/01/24 10:39 Height 5 ft 1 in Weight 238 lb 1.588 oz BMI 45.0 Intake Visit Reasons: vaginal bleeding Environmental Restoration Planner Required: No Information Interpreted: non-clinical & clinical Garland Machine Operator: Garland Machine Operator Present (Vicky BERNABE) Accompanied by: Self / Same As Patient Allergies latex Adverse Reaction (Mild, Verified 01/01/24 10:39) hives Is last menstrual period known: No (mirena) HPI Comments Details: Presenting complaining of urinary frequency in addition to vaginal spotting, vaginal spotting is very light on and off since IUD insertion no other complaints. 11/17 the patient was counseled about different options of treatment after review of all the workup and decided to proceed with Mirena IUD insertion 12/01 Mirena IUD inserted 12/18/23 pelvic ultrasound showed the following: IMPRESSION: 1. Interval placement of Intrauterine contraceptive device in optimal position. 2. Interval asymmetric enlargement of the right ovary containing Simple right ovarian cyst measuring 4.3 cm in size. 3. Interval resolution of left ovary. Cysts or follicles. Normal left ovary. 4. Findings are overwhelmingly likely to represent a benign functional cyst. No followup imaging recommended. Microscopic hematuria was identified urine culture grewn GBS, the patient was prescribed amoxicillin and finish the course of antibiotic by her symptoms are persistent PFSH Medical History HTN (hypertension) Decreased hearing of both ears Environmental and seasonal allergies Tinnitus of both ears Knee pain Excessive daytime sleepiness Loud snoring Vitamin D deficiency Impaired fasting glucose Mixed dyslipidemia Morbid obesity Hiatal hernia with gastroesophageal reflux Family history of premature CAD Annual visit for general adult medical examination with abnormal findings Anxiety and depression Surgical History H/O endoscopy H/O wisdom tooth extraction Family History Father Substance use disorder Mental health disorder Alcoholism Myocardial infarction acute, Onset Age: 55 Depression Maternal Uncle Testicular cancer Social History Household Members: Spouse and Children Housing: House Alcohol intake: current Alcohol intake frequency: holidays/special occasions only Patient Tobacco Use Status: Never used Tobacco e-Cigarette/Vaping Use: Never Used Current occupational status: unemployed and other Sexual orientation: Straight/Heterosexual Gender identity: Female Cognitive needs: No Hearing needs: No Vision needs: Yes Review of Systems Const All systems reviewed & are unremarkable except as noted in HPI and below Physical Exam Vital Signs: BMI result Body Mass Index 45.0 General: Yes no CVA tenderness External Female Exam: normal external appearance and normal appearance of the urethra Speculum Exam - Vagina: normal appearance of the vagina, normal palpation, no lesions and no masses Speculum Exam - Cervix: normal appearance of the cervix, normal palpation, no lesions, no masses, nontender and Other cervical findings present (IUD thread in place) Bimanual exam- vagina & uterus: normal bimanual exam, normal palpation, uterine size normal, normal palpation, uterine shape normal, No Cervical tenderness present and non-tender Bimanual Exam- Adnexa, other: normal adnexae Back/Spine/Pelvis Back: no CVA tenderness Results AMB Test Urine AMB Test Urine Negative Last Edit by Vicky Christiansen CMA on 01/01/24 10:43 Assessment & Plan Assessment & Plan (1) Microscopic hematuria: Code(s): R31.29 - Other microscopic hematuria Category: Medical Plan: Repeat urine dip showed persistent microscopic hematuria, will refer to Urology for further management (2) IUD check up: Code(s): Z30.431 - Encounter for routine checking of intrauterine contraceptive device Category: Medical Plan: UPT done in the office was negative. Discussed with the patient the finding on physical exam, IUD string in place, the patient was reassured. Instructions given to patient to call in case of temperature above 100.4, severe cramping/pelvic pain, abnormal discharge or abnormal uterine bleeding or if she misses her menstrual cycle. Otherwise follow-up at her annual exam appointment. All questions answered, the patient verbalized understanding. Orders: Orders AMB HCG Urine Test Today Z32.02 - Encounter for test, result negative AMB Urinalysis Dipstick Today R31.29 - Other microscopic hematuria Referrals Urology Referral R31.29 - Other microscopic hematuria Coding Level of Care Code Est Pt Level 3 (87075) Diagnoses Microscopic hematuria R31.29 IUD check up Z30.431
== END 2024-01-01 11:14 | disposition home or self-care (01) ==
PROVIDERS: PCP Internal Medicine; Visit Provider Obstetrics & Gynecology
DX: R31.29 Other microscopic hematuria (principal); Z30.431 Encounter for routine checking of intrauterine contraceptive device; Z32.02 Encounter for pregnancy test, result negative
CPT/HCPCS: 99213

== ENCOUNTER → 2024-01-01 10:31 | Outpatient (BNVA) | payer OTHER, SELFPAY | PROVIDERS: PCP Internal Medicine; Visit Provider Obstetrics & Gynecology | DX: Z30.431 Encounter for routine checking of intrauterine contraceptive device (principal); R31.29 Other microscopic hematuria | CPT/HCPCS: 81025; 99212 ==

== ENCOUNTER 2024-01-06 12:35 | Outpatient (AMB) | payer OTHER, SELFPAY ==
[2024-01-06 12:54] VITALS: BP 118/84; PULSE 100; O2SAT 97; BMI 45.9
--- NOTE | 2024-01-06 12:54 | MHC.PC.OV ---
Vital Signs 01/06/24 12:54 Height 5 ft 1 in Weight 243 lb BMI 45.9 BP 118/84 Blood Pressure Location Rt brachial Position Sitting Pulse 100 Pulse Source Pulse Oximeter Pulse Oximetry (%) 97 Oxygen Delivery Method Room Air Intake Visit Reasons: head/spasm/disc Intake Note: Pt is here today f/u head/spasm/disc Allergies latex Adverse Reaction (Mild, Verified 01/06/24 13:11) hives Medication List - Last Reconciled 01/06/24 by Arelis Serrano MD acetaminophen 1,000 mg (2 x 500 mg) PO Q6H PRN azelastine 1 spray intranasal BID PRN cholecalciferol (vitamin D3) 25 mcg PO DAILY CPAP (CPAP Machine/Device) As directed duloxetine 60 mg PO DAILY duloxetine 30 mg PO DAILY hydroxyzine HCl 25 mg PO BEDTIME PRN levonorgestrel (Mirena) intrauterine lidocaine 5% 1 patch topical DAILY lisinopril-hydrochlorothiazide 10-12.5 mg 1 tab PO DAILY loratadine (Claritin) 10 mg PO DAILY magnesium oxide 400 mg PO DAILY 30 days Tobacco use date assessed: 01/06/24 Dental Screening Dental Screen Date: 01/06/24 Did you have a dental visit in the last 12 months?: No Did you have a dental problem in the last 6 months where you did not have access to dental care?: No Was dental information given to patient?: Patient declined HPI head/spasm/disc HPI Details 43-year-old lady here today complaining of recurrent pain in posterior neck occasionally experiencing electricity like pain shooting down arms, accompanied by tightness and tingling in posterior neck sometimes radiating down upper back. This has been present now for several months, getting worse, aggravated by certain changes in position. Denies any history of trauma. Has been taking Tylenol 1000 mg every 6 hours which has not afforded much relief. Requesting also referral to urology as she has been having microscopic hematuria for the last several months now. CT of abdomen pelvis in 01/09/2023 which did not show any kidney stone hydronephrosis [facility] Medical History (Updated 01/06/24 @ 13:17 by Arelis Serrano MD) Cervicalgia HTN (hypertension) Decreased hearing of both ears Environmental and seasonal allergies Tinnitus of both ears Knee pain Excessive daytime sleepiness Loud snoring Vitamin D deficiency Impaired fasting glucose Mixed dyslipidemia Morbid obesity Hiatal hernia with gastroesophageal reflux Family history of premature CAD Annual visit for general adult medical examination with abnormal findings Anxiety and depression Surgical History H/O endoscopy H/O wisdom tooth extraction Family History Father Substance use disorder Mental health disorder Alcoholism Myocardial infarction acute, Onset Age: 55 Depression Maternal Uncle Testicular cancer Social History Household Members: Spouse and Children Housing: House Alcohol intake: current Alcohol intake frequency: holidays/special occasions only Patient Tobacco Use Status: Never used Tobacco e-Cigarette/Vaping Use: Never Used Current occupational status: unemployed and other Sexual orientation: Straight/Heterosexual Gender identity: Female Cognitive needs: No Hearing needs: No Vision needs: Yes Questionnaire PHQ-9 Over the last 2 weeks, how often have you been bothered by any of the following problems? 1. Little interest or pleasure in doing things: not at all 2. Feeling down, depressed, or hopeless: not at all 3. Trouble falling or staying asleep, or sleeping too much: several days 4. Feeling tired or having little energy: several days 5. Poor appetite or overeating: several days 6. Feeling bad about yourself - or that you are a failure or have let yourself or your family down: several days 7. Trouble concentrating on things, such as reading the newspaper or watching television: several days 8. Moving or speaking so slowly that other people could have noticed. Or the opposite - being so fidgety or restless that you have been moving around a lot more than usual: not at all 9. Thoughts that you would be better off or of hurting yourself in some way: not at all Total score: 5 Depression Screening Interpretation: Positive Depression Screening Follow-up: Existing condition and In treatment Depression Screening Done: Yes 80405 - PHQ-9 Billing: Yes Source: Developed by Drs. Charles Gerardo, Negrita Kunz, Horacio Interiano and colleagues, with an educational ventura from [employer]. Thrive Questionnaire Date Thrive assessed: 01/06/24 I am a: Patient What is your living situation today?: I have a steady place to live Within the past 12 months, did the food you bought not last and you didn't have the money to get more?: Never true Within the past 12 months, did you worry whether your food would run out before you got money to buy more?: Never true Do you have trouble paying for medicines?: No Do you have trouble getting transportation to medical appointments?: No Do you have trouble paying your heating and electricity bill?: No Do you have trouble taking care of your child, family member or friend?: No Do you have trouble with day-to-day activities such as bathing, preparing meals, shopping, managing finances, etc.?: Yes Are you interested in more education?: Yes Please select the resources that you would like help with: Daily support Currently or been in a relationship where the following occur: No concerns reported THRIVE Score: 0 AUDIT C Alcohol Use Questionnaire (AUDIT-C) 1. How often do you have a drink containing alcohol?: Monthly or less 2. How many drinks containing alcohol do you have on a typical day when you are drinking?: 1 or 2 3. How often do you have six or more drinks on one occasion?: Never Total Score: 1 SAMMY-7 AMB Questionnaire SAMMY-7 Date SAMMY - 7 assessed: 01/06/24 Feeling nervous, anxious, or on edge: 1 = Several days Not being able to stop or control worryin = Several days Worrying too much about different things: 1 = Several days Trouble relaxin = Not at all Being so restless that it is hard to sit still: 0 = Not at all Becoming easily annoyed or irritable: 1 = Several days Feeling afraid as if something awful might happen: 0 = Not at all Total SAMMY-7 score (0-4 normal; 5-9 mild; 10-14 moderate; 15-21 severe): 4 Source: Developed by Drs. Charles Gerardo, Negrita Kunz, Horacio Interiano and colleagues, with an educational ventura from [employer] SAMMY-7 Assessment Billing SAMMY-7 Assessment Tool: SAMMY-7 Assessment 33995 Review of Systems Const Denies headache(s) and Denies weakness Eyes Denies change in vision ENT Denies dizziness, Denies headache(s), Denies nasal congestion, Denies nasal discharge and Denies sore throat Card Denies chest pain, Denies lightheadedness, Denies palpitations and Denies dyspnea Resp Denies chest congestion, Denies cough, Denies dyspnea and Denies wheezing GI Denies abdominal pain, Denies change in bowel habits and Denies heartburn Reports as per HPI, Denies urinary frequency, Denies dysuria and Denies urinary urgency Musc Reports no additional complaints and Reports as per HPI Skin/Breast Denies breast pain, Denies breast mass, Denies lesions and Denies rash Neuro Reports as per HPI, Denies dizziness, Denies headache(s), Denies focal weakness and Denies weakness Psych Reports no additional complaints Endo Denies polydipsia, Denies polyuria and Denies palpitations Ricardo/Lymph Reports no additional complaints Aller/Immun Denies wheezing Physical exam (Primary Care) Vital Signs: Last Vital Signs Pulse 100 01/06/24 12:54 BP 118/84 01/06/24 12:54 Pulse Ox 97 01/06/24 12:54 Oxygen Delivery Method Room Air 01/06/24 12:54 BMI result Body Mass Index 45.9 BMI Assessment/Plan discussion: High BMI High, discussed plan: lifestyle, weight reduction, dietary and physical activity Tobacco/Smoking Status: Tobacco use Status Tobacco use date assessed 01/06/24 01/06/24 12:55 Patient Tobacco Use Status Never used Tobacco 01/06/24 12:55 e-Cigarette/Vaping Use Never Used 01/06/24 12:55 PHQ-9: PHQ-9 Score PHQ-9: Total score 12 01/06/24 13:22 Depression Screening Interpretation: Positive Depression Screening Follow-up: Existing condition and In treatment Thrive Assessment: Date of Thrive Assessment Date Thrive assessed 01/06/24 01/06/24 12:58 Currently or been in a relationship where the following occur: No concerns reported Const Other: Alert oriented x3, morbidly obese, no acute cardiorespiratory distress noted Orientation/consciousness: patient oriented x3 HENMT Ears: external ears normal General nose exam: Normal external nose present Face and sinus: Yes face symmetric Mouth: moist mucous membranes Eyes General: appearance normal, both eyes and all related structures Neck Other: Supple, no lymphadenopathy, thyroid gland nonpalpable Resp Auscultation: clear to auscultation bilaterally Cardio Other: S1-S2 present regular rate and rhythm GI Inspection: Yes normal to inspection and Yes abdominal wall ecchymosis Palpation (GI): Soft to palpation, nontender, no guarding and no masses General: Yes no CVA tenderness Back/Spine/Pelvis Back: no CVA tenderness Cervical Spine: cervical muscular tenderness (bilateral) and cervical ROM abnormal Thoracic/Lumbar Spine: straight leg raise negative bilaterally, paraspinal muscle tenderness bilaterally in the lower lumbar and thoraco-lumbar ROM limited Skin General skin exam: no rashes or lesions noted Neuro General: patient oriented x3, gait normal, tone normal, moves all extremities, Normal light touch and pain sensation, no focal motor deficits and CN's II-XI intact bilaterally Extrem General: Yes full ROM, Yes no joint enlargement, Yes no clubbing, cyanosis or edema, Yes no calf tenderness and Yes normal gait Psych Appearance: grossly normal and well kempt Affect: normal affect Assessment and Plan Assessment & Plan (1) Cervicalgia: Code(s): M54.2 - Cervicalgia Plan: X-ray cervical spine ordered, referred for physical therapy (2) Back pain of lumbar region with sciatica: Code(s): M54.40 - Lumbago with sciatica, unspecified side Plan: Referred for physical therapy (3) Microscopic hematuria: Code(s): R31.29 - Other microscopic hematuria Plan: Has been having persistent microhematuria, referred to urology Orders: Orders XR cervical spine 3V 01/06/24 M54.2 - Cervicalgia PT Evaluation and Treatment 01/06/24 M54.2 - Cervicalgia, M54.40 - Lumbago with sciatica, unspecified side Referrals Urology Referral R31.29 - Other microscopic hematuria Coding Level of Care Code Est Pt Level 4 (23949) Diagnoses Cervicalgia M54.2 Back pain of lumbar region with sciatica M54.40 Microscopic hematuria R31.29 Additional Codes SAMMY-7 Assessment Billing - SAMMY-7 Assessment Tool: SAMMY-7 Assessment 67341 ([id number])
== END 2024-01-06 13:24 | disposition home or self-care (01) ==
PROVIDERS: PCP Internal Medicine; Visit Provider Internal Medicine
DX: M54.2 Cervicalgia (principal); M54.40 Lumbago with sciatica, unspecified side; R31.29 Other microscopic hematuria

== ENCOUNTER → 2024-01-06 12:35 | Outpatient (BNVA) | payer OTHER, SELFPAY | PROVIDERS: PCP Internal Medicine; Visit Provider Internal Medicine | DX: M54.2 Cervicalgia (principal); M54.40 Lumbago with sciatica, unspecified side; R31.29 Other microscopic hematuria | CPT/HCPCS: 96127; 99212 ==

== ENCOUNTER 2024-01-06 13:26 | Outpatient (REF) | payer OTHER, SELFPAY ==
--- NOTE | ~2024-01-06 | XR_ITS ---
EXAMINATION: XR CERVICAL SPINE CLINICAL INFORMATION: Neck pain COMPARISON: None available. TECHNIQUE: 3 views of the cervical spine were obtained. FINDINGS: There are no prevertebral soft tissue or bony abnormalities demonstrated. No compression fractures or subluxations are identified. Alignment is maintained at the atlanto-axial articulation. The disc spaces are preserved. No endplate changes are seen. The prevertebral soft tissues are normal. The foramina are patent. XR/XR cervical spine 3V IMPRESSION: Unremarkable examination. Electronically signed by: Soren Garcia MD 01/20/2024 03:51 PM EDT
== END 2024-01-06 13:27 | disposition home or self-care (01) ==
LOC: HO.HMGCX 13:26
PROVIDERS: PCP Internal Medicine; Visit Provider Internal Medicine
DX: M54.2 Cervicalgia (principal)
CPT/HCPCS: 72040

== ENCOUNTER 2024-02-25 15:05 | Outpatient (REF) | payer OTHER, SELFPAY ==
[2024-02-25 16:56] LABS: Urine Cytology See Pathology rpt
== END 2024-02-25 15:06 | disposition home or self-care (01) ==
LOC: HO.LNP 15:05
PROVIDERS: PCP Internal Medicine; Visit Provider Nurse Practitioner Family
DX: N39.0 Urinary tract infection, site not specified (principal); N39.46 Mixed incontinence
CPT/HCPCS: 81003; 88112; 99202

== ENCOUNTER 2024-02-25 15:05 | Outpatient (AMB) | payer OTHER, SELFPAY ==
--- NOTE | 2024-02-25 15:06 | A.OFFVIS_ITS ---
Intake Visit Reasons: microscopic hematuria Intake Note: Patient is present for MICROSCOPIC HEMATURIA Urology Medication:NONE Antibiotic Allergy:NONE Blood Thinner:NONE Tile Sorter Required: No Allergies latex Adverse Reaction (Mild, Verified 02/25/24 15:44) hives Medication List - Last Reconciled 02/25/24 by DARLENE Barcenas acetaminophen 1,000 mg (2 x 500 mg) PO Q6H PRN azelastine 1 spray intranasal BID PRN cholecalciferol (vitamin D3) 25 mcg PO DAILY CPAP (CPAP Machine/Device) As directed duloxetine 60 mg PO DAILY duloxetine 30 mg PO DAILY hydroxyzine HCl 25 mg PO BEDTIME PRN levonorgestrel (Mirena) intrauterine lidocaine 5% 1 patch topical DAILY lisinopril-hydrochlorothiazide 10-12.5 mg 1 tab PO DAILY loratadine (Claritin) 10 mg PO DAILY magnesium oxide 400 mg PO DAILY 30 days HPI Comments Details: Alice is a pleasant 43-year-old female patient of Dr. Serrano. She has a past medical history of hypertension, allergies, vitamin-D deficiency, mixed lipidemia, obesity, anxiety, and depression. She presents to the office today as a new patient for microscopic hematuria. With the patient today she reports a longstanding history of microscopic hematuria and has follow-up with 3 urologist in the past as her is in the . She denies any previous microscopic hematuria workup. She denies any previous history of workplace chemical exposure or nicotine dependence however she does report a 20 year history of secondhand smoke. She also discusses noting worsening stress/urge incontinence. We discussed at length potential causes of mixed urinary incontinence as well as microscopic hematuria. In office urinalysis results reviewed with the patient today 2+ microscopic hematuria. She denies dysuria, foul smelling urine, changes to urinary stream, flank pain, fever, and or chills. She reports previously being on Detrol and felt this was helpful however stopped as she became and never restarted the medication. We discussed further workup to include retroperitoneal ultrasound as well as in office cystoscopy given recurrent/persistent microscopic hematuria. She does have a previous history of 3 vaginal deliveries. She otherwise offers no other issues or concerns at this time. [facility] Medical History Cervicalgia HTN (hypertension) Decreased hearing of both ears Environmental and seasonal allergies Tinnitus of both ears Knee pain Excessive daytime sleepiness Loud snoring Vitamin D deficiency Impaired fasting glucose Mixed dyslipidemia Morbid obesity Hiatal hernia with gastroesophageal reflux Family history of premature CAD Annual visit for general adult medical examination with abnormal findings Anxiety and depression Surgical History H/O endoscopy H/O wisdom tooth extraction Family History Father Substance use disorder Mental health disorder Alcoholism Myocardial infarction acute, Onset Age: 55 Depression Maternal Uncle Testicular cancer Social History Household Members: Spouse and Children Housing: House Alcohol intake: current Alcohol intake frequency: holidays/special occasions only Patient Tobacco Use Status: Never used Tobacco e-Cigarette/Vaping Use: Never Used Current occupational status: unemployed and other Sexual orientation: Straight/Heterosexual Gender identity: Female Cognitive needs: No Hearing needs: No Vision needs: Yes Review of Systems Const All systems reviewed & are unremarkable except as noted in HPI and below Physical Exam Const General: cooperative, healthy appearing, comfortable, no acute distress, well developed, alert and awake Nutritional Appearance: overweight Orientation/consciousness: patient oriented x3 Limitations: no limitations HEENT Head: Yes normal to inspection, Yes normocephalic and Yes atraumatic Ears: hearing grossly normal bilaterally Eyes General: appearance normal, both eyes and all related structures Neck Neck: Yes normal visual inspection and Yes trachea midline Chest Chest palpation & inspection: normal inspection of the chest Resp Effort & Inspection: normal respiratory effort and able to speak in complete sentences Cardio Rate: regular rate GI Inspection: Yes normal to inspection General: Yes no CVA tenderness Back/Spine/Pelvis Back: no CVA tenderness Skin General skin exam: no rashes or lesions noted Neuro General: patient oriented x3 Extrem General: Yes normal to inspection Psych Appearance: grossly normal and well kempt Mental Status: mental status grossly normal Speech and movement: Normal speech and movement present and Clear speech present Affect: normal affect Attitude: cooperative Thought process: Normal thought process present Thought content: Normal thought content present Insight: Fair insight present (Psych) Judgement: Fair judgement present (Psych) Results AMB Urinalysis, Automated UA Leukoctes 0 Ro/uL Last Edit by Camelle Yury, [facility] on 02/25/24 15:16 UA Nitrite Negative Last Edit by Winifred Cotton [facility] on 02/25/24 15:16 UA Urobilinogen 0.2 mg/dL Last Edit by Winifred Cotton [facility] on 02/25/24 15:1 6 UA Protein 0 mg/dL Last Edit by Winifred Cotton [facility] on 02/25/24 15:16 UA pH 6.0 Last Edit by Winifred Cotton [facility] on 02/25/24 15:16 UA Blood 80 Angel/uL Last Edit by Winifred Cotton [facility] on 02/25/24 15:16 UA Specific [place] 1.010 Last Edit by Winifred Cotton [facility] on 02/25/24 15: 16 UA Ketone Negative Last Edit by Winifred Cotton [facility] on 02/25/24 15:16 UA Bilirubin 0 mg/dL Last Edit by Winifred Cotton [facility] on 02/25/24 15:16 UA Glucose 0 mg/dL Last Edit by Winifred Cotton [facility] on 02/25/24 15:16 Results Reviewed Results Reviewed: Laboratory Last Values Urine pH (Auto) 6.0 02/25/24 15:15 Specific [place] (Auto) 1.010 02/25/24 15:15 Urine Protein (Auto) 0 mg/dL 02/25/24 15:15 Glucose (UA)(Auto) 0 mg/dL 02/25/24 15:15 Urine Ketones (Auto) Negative 02/25/24 15:15 Urine Blood (Auto) 80 Angel/uL 02/25/24 15:15 Urine Nitrite (Auto) Negative 02/25/24 15:15 Urine Bilirubin (Auto) 0 mg/dL 02/25/24 15:15 Urine Urobilinogen (Auto) 0.2 mg/dL 02/25/24 15:15 Leukocyte Esterase (Auto) 0 Ro/uL 02/25/24 15:15 Assessment & Plan Assessment & Plan (1) Microscopic hematuria: Code(s): R31.29 - Other microscopic hematuria Category: Medical (2) Mixed stress and urge urinary incontinence: Code(s): N39.46 - Mixed incontinence Category: Medical Plan In office urinalysis results reviewed with the patient today; as noted above; w ill send for urine cytology. We discussed at length potential causes of microscopic hematuria as well as mixed urinary incontinence. We discussed further treatment options of mixed urinary incontinence as well as microscopic hematuria; risks and benefits of these interventions were discussed. Start Myrbetriq as discussed and prescribed. Will obtain retroperitoneal ultrasound for further assessment evaluation. Discussed bladder triggers/irritants. Discussed affects of increase weight on the bladder in relation to lower urinary tract symptoms she is experiencing. Will schedule for in office cystoscopy with imaging to be completed prior. Follow-up per doctor's orders; or sooner with any issues, concerns, and or questions. Orders: Orders AMB Urinalysis Automated Today Z13.9 - Encounter for screening, unspecified Urine Cytology Today N39.0 - Urinary tract infection, site not specified US retroperitoneal comp Today N39.46 - Mixed incontinence, R31.29 - Other microscopic hematuria Medications: New mirabegron ER (Myrbetriq) 25 mg PO DAILY 30 days 30 tabs 3RF N30.10 - Interstitial cystitis (chronic) without hematuria, N32.81 - Overactive bladder, R35.1 - Nocturia, R39.15 - Urgency of urination Patient Instructions: The patient had an opportunity to ask questions regarding the treatment plan. All questions were answered. Physical exam, labs, and imaging were discussed and reviewed in detail. As well as risks, benefits, and discussion of treatment c hoices. No major barriers to understanding were identified. The patient expressed understanding and agreement with the above treatment plan. The patient was made aware they should contact our office by phone for worsening of their current condition, the appearance of new symptoms, or with any questions or concerns. Compliance is encouraged with any medications and follow up testing that is ordered. It is a privilege to be allowed the opportunity to participate in? your urological care.? Again, if you have any questions or concerns If you have any questions or concerns please do not hesitate to contact me. The office is [phone]. This note is constructed using voice recognition software. While every effort has been made to ensure accuracy health policy manager errors may have been included. Yours sincerely, DARLENE Barcenas Coding Level of Care Code New Pt Level 4 (53711) Diagnoses Microscopic hematuria R31.29 Mixed stress and urge urinary incontinence N39.46
== END 2024-02-25 15:39 | disposition home or self-care (01) ==
LOC: HO.HUSH 15:06
PROVIDERS: PCP Internal Medicine; Visit Provider Nurse Practitioner Family
DX: R31.29 Other microscopic hematuria (principal); N39.46 Mixed incontinence; Z13.9 Encounter for screening, unspecified
CPT/HCPCS: 99204

== ENCOUNTER 2024-03-10 09:33 | Outpatient (AMB) | payer OTHER, SELFPAY ==
[2024-03-10 09:37] VITALS: BMI 45.8
--- NOTE | 2024-03-10 09:37 | MHC.OFFVIS ---
Vital Signs 03/10/24 09:37 Height 5 ft 1 in Weight 242 lb 8.136 oz BMI 45.8 Intake Visit Reasons: Discuss hysterectomy Allergies latex Adverse Reaction (Mild, Verified 02/25/24 15:44) hives HPI Comments Details: The patient had Mirena IUD inserted few months ago for abnormal uterine bleeding, menstrual cycles has been very light non crampy and the patient is happy with the results would like to discuss different options of treatment in case Mirena IUD is not an option for her abnormal uterine bleeding anymore [facility] Medical History Cervicalgia HTN (hypertension) Decreased hearing of both ears Environmental and seasonal allergies Tinnitus of both ears Knee pain Excessive daytime sleepiness Loud snoring Vitamin D deficiency Impaired fasting glucose Mixed dyslipidemia Morbid obesity Hiatal hernia with gastroesophageal reflux Family history of premature CAD Annual visit for general adult medical examination with abnormal findings Anxiety and depression Surgical History H/O endoscopy H/O wisdom tooth extraction Family History Father Substance use disorder Mental health disorder Alcoholism Myocardial infarction acute, Onset Age: 55 Depression Maternal Uncle Testicular cancer Social History Household Members: Spouse and Children Housing: House Alcohol intake: current Alcohol intake frequency: holidays/special occasions only Patient Tobacco Use Status: Never used Tobacco e-Cigarette/Vaping Use: Never Used Current occupational status: unemployed and other Sexual orientation: Straight/Heterosexual Gender identity: Female Cognitive needs: No Hearing needs: No Vision needs: Yes Review of Systems Const All systems reviewed & are unremarkable except as noted in HPI and below Reports as per HPI and Reports no additional complaints GI Reports no additional complaints Reports no additional complaints Physical Exam Vital Signs: BMI result Body Mass Index 45.8 Assessment & Plan Assessment & Plan (1) Abnormal uterine bleeding: Code(s): N93.9 - Abnormal uterine and vaginal bleeding, unspecified Category: Medical Plan: Discussed with the patient alternative options of treatment for AUB treatment including endometrial ablation, hysterectomy. Explained to the patient that since the patient is satisfied with the results of the IUD regarding her abnormal uterine bleeding the risk of surgical management outweigh the benefits. All questions answered, the patient verbalized understanding and agreed with the plan. Coding Level of Care Code Est Pt Level 3 (28343) Diagnoses Abnormal uterine bleeding N93.9
== END 2024-03-10 10:22 | disposition home or self-care (01) ==
PROVIDERS: PCP Internal Medicine; Visit Provider Obstetrics & Gynecology
DX: N93.9 Abnormal uterine and vaginal bleeding, unspecified (principal)
CPT/HCPCS: 99213

== ENCOUNTER → 2024-03-10 09:33 | Outpatient (BNVA) | payer OTHER, SELFPAY | PROVIDERS: PCP Internal Medicine; Visit Provider Obstetrics & Gynecology | DX: N93.9 Abnormal uterine and vaginal bleeding, unspecified (principal) | CPT/HCPCS: 99212 ==

== ENCOUNTER 2024-03-16 08:40 | Outpatient (AMB) | payer OTHER, SELFPAY ==
[2024-03-16 08:41] VITALS: BMI 45.7
--- NOTE | 2024-03-16 08:41 | MHC.OFFVIS ---
Vital Signs 03/16/24 08:41 Height 5 ft 1 in Weight 242 lb BMI 45.7 Intake Visit Reasons: 1 yr f/u - Snoring Intake Note: patient presents for 1 year follow up Allergies latex Adverse Reaction (Mild, Verified 03/16/24 08:43) hives Medication List - Last Reconciled 03/16/24 by Michelle Watson PA-C acetaminophen 1,000 mg (2 x 500 mg) PO Q6H PRN azelastine 1 spray intranasal BID PRN cholecalciferol (vitamin D3) 25 mcg PO DAILY CPAP (CPAP Machine/Device) As directed duloxetine 60 mg PO DAILY duloxetine 30 mg PO DAILY hydroxyzine HCl 25 mg PO BEDTIME PRN levonorgestrel (Mirena) intrauterine lidocaine 5% 1 patch topical DAILY lisinopril-hydrochlorothiazide 10-12.5 mg 1 tab PO DAILY loratadine (Claritin) 10 mg PO DAILY magnesium oxide 400 mg PO DAILY 30 days Myrbetriq ER (mirabegron) 25 mg PO DAILY 90 days NS HPI Comments Details: 42 y/o female patient presents for follow up of DARON. The home sleep study result was moderate degree of sleep apnea. The AHI was 16/hr and oxygen ellis was 83%. Pt underwent titration study and started CPAP at [id number]. The CPAP compliance and therapy response (01/19/24-03/16/24) reviewed. She is on CPAP at [id number]. The usage days 93% and the average usage hours 9 hrs 43 min. The AHI was 1.2/hr. Pt reports she can sleeps about 10 hrs. She still toss and turns, it is more related to nasal congestion. But her snoring has resolved with CPAP. She feels more rested and having less migraine, easily controlled with diet and medication Ibuprofen OTC, Sumatriptan PRN. No leg cramps. [facility] Medical History Cervicalgia HTN (hypertension) Decreased hearing of both ears Environmental and seasonal allergies Tinnitus of both ears Knee pain Excessive daytime sleepiness Loud snoring Vitamin D deficiency Impaired fasting glucose Mixed dyslipidemia Morbid obesity Hiatal hernia with gastroesophageal reflux Family history of premature CAD Annual visit for general adult medical examination with abnormal findings Anxiety and depression Surgical History H/O endoscopy H/O wisdom tooth extraction Family History Father Substance use disorder Mental health disorder Alcoholism Myocardial infarction acute, Onset Age: 55 Depression Maternal Uncle Testicular cancer Social History Household Members: Spouse and Children Housing: House Alcohol intake: current Alcohol intake frequency: holidays/special occasions only Patient Tobacco Use Status: Never used Tobacco e-Cigarette/Vaping Use: Never Used Current occupational status: unemployed and other Sexual orientation: Straight/Heterosexual Gender identity: Female Cognitive needs: No Hearing needs: No Vision needs: Yes Review of Systems Const All systems reviewed & are unremarkable except as noted in HPI and below Reports as per HPI and Reports no additional complaints GI Reports no additional complaints Reports no additional complaints Physical Exam Vital Signs: BMI result Body Mass Index 45.7 Const General: cooperative, comfortable and no acute distress Nutritional Appearance: obese Orientation/consciousness: patient oriented x3 Eyes Pupils: Equal, round and reactive pupils present Neuro General: patient oriented x3 Cranial nerves: Yes CN's II-XII intact bilaterally, Yes Facial sensation intact/muscles of mastication intact, Yes Equal, round and reactive pupils present, Yes Normal accommodation reflex present, Yes Normal facial strength present, Yes Midline tongue present, Yes Symmetric palate elevation present, Yes Ability to bilaterally rotate head present and Yes Ability to bilaterally elevate shoulders present Gait exam (Neuro): Normal gait present Motor exam (neuro): 5/5 motor strength present throughout, Pronator motor function not present and Normal motor muscle tone present throughout Deep tendon reflexes (DTR's): Right triceps reflex intensity grade: 2+, Left triceps reflex intensity grade: 2+, Rt Biceps (C5, C6): 2+, Left biceps reflex intensity grade: 2+, Right brachioradialis reflex intensity grade: 2+, Left brachioradialis reflex intensity grade: 2+, Right patellar reflex intensity grade: 2+ and Left patellar reflex intensity grade: 2+ Coordination: [id number] test normal Psych Appearance: grossly normal Mental Status: mental status grossly normal Affect: normal affect Attitude: cooperative Insight: Good insight present (Psych) Judgement: Good judgement present (Psych) Results Reviewed Results Reviewed: CPAP Use - on phone MARNIE Average use 9hours and 43 min AHI 1.2 Leaks 1.53 Assessment & Plan Assessment & Plan (1) Cervicalgia: Code(s): M54.2 - Cervicalgia Category: Medical (2) DARON (obstructive sleep apnea): Comment: Moderate degree of sleep apnea. The AHI was 16/hr and oxygen ellis was 83% Code(s): G47.33 - Obstructive sleep apnea (adult) (pediatric) Category: Medical (3) Morbid obesity: Code(s): E66.01 - Morbid (severe) obesity due to excess calories Category: Medical Plan Plan Continue to use CPAP use nightly as patient experiences good clinical effects. Stressed compliance, patient has a family history of hypertension. BMI is elevated, Wt reduction advised, daily exercise and diet, monitor caloric intake. Migraines, OTC can be used Ibuprofen, if they don't break use Sumatriptan PRN, not to exceed 200mg in 24 hours, continue with Migraine Cap use and lying down in dark room as needed. Coding Level of Care Code Est Pt Level 4 (49636) Diagnoses Cervicalgia M54.2 DARON (obstructive sleep apnea) G47.33 Morbid obesity E66.01
== END 2024-03-16 09:36 | disposition home or self-care (01) ==
PROVIDERS: Absent Provider Psychiatry & Neurology Neurology; PCP Internal Medicine; Visit Provider Physician Assistant Medical
DX: M54.2 Cervicalgia (principal); G47.33 Obstructive sleep apnea (adult) (pediatric); E66.01 Morbid (severe) obesity due to excess calories
CPT/HCPCS: 99213

== ENCOUNTER → 2024-03-16 08:40 | Outpatient (BNVA) | payer OTHER, SELFPAY | PROVIDERS: Absent Provider Psychiatry & Neurology Neurology; PCP Internal Medicine; Visit Provider Psychiatry & Neurology Neurology | DX: G47.33 Obstructive sleep apnea (adult) (pediatric) (principal); M54.2 Cervicalgia; E66.01 Morbid (severe) obesity due to excess calories; Z99.89 Dependence on other enabling machines and devices; Z68.42 Body mass index [BMI] 45.0-49.9, adult | CPT/HCPCS: 99212 ==

== ENCOUNTER 2024-03-27 08:14 | Outpatient (REF) | payer OTHER, SELFPAY ==
[2024-03-27 11:03] LABS: Alanine Aminotransferase 25 U/L (0-31); Anion Gap 13 (12-20); Aspartate Amino Transferase 25 U/L (5-31); Blood Urea Nitrogen 12 mg/dL (9-16); Calcium 10.3 mg/dL (8.4-10.2); Carbon Dioxide 27 mmol/L (22-29); Chloride 103 mmol/L (96-108); Cholesterol 198 mg/dL (<200); Estimated Glomerular Filt Rate > 60; Glucose Fasting 115 mg/dL (60-99); HDL Cholesterol 43 mg/dL (>40); LDL Cholesterol Calculated 92 mg/dL (<100); Potassium 3.8 mmol/L (3.3-5.1); Sodium 139 mmol/L (135-145); Triglycerides 319 mg/dL (<150)
[2024-03-27 11:37] LABS: Estimated Average Glucose 108 mg/dL; Hemoglobin A1C 118.7582 umol/L; Hemoglobin A1c % 5.4 % (<6.0); Total Hemoglobin (HGBA1C) 3311.9591 umol/L
--- OUTSIDE RECORDS SUMMARY | 2024-04-01 05:23 | XMS_ITS | Continuity of Care Document ---
Author Name [facility] Organization [facility] Care Team Providers Care Senior Contracts Administrator Name Role Phone [facility] Unavailable Unavailable Medications Combined list of outpatient medications from Department of Defense and Veterans Affairs facilities.Medications provided include 1) outpatient medications from the last 15 months, and 2) patient-reported medications. Medication Details Route Status Patient Instructions Prescription Expires Prescription Number Last Dispense Date Ordering Provider Order Date Order Qty Source AMOXICILLIN (AMOXICILLI N), 500 MG, CAPSULE, ORAL, [employer] [facility], 500 ea. BOTTLE Active [id number] 4 2023 10 Pharmac y Data Transac tion Service Facilit y Benzonatate ([employer]) 100 CAPSULE in 1 BOTTLE Active [id number] 06/26/19 2 4 2023 60 Pharmac y Data Transac tion Service Facilit y DIAZEPAM (DIAZEPAM), 5MG, TABLET, ORAL, IVAX PHARMACEUT, 100 ea. BOTTLE Active [id number] 4 2023 10 Pharmac y Data Transac tion Service Facilit y DULOXETINE HCL (DULOXETINE HCL), 60 MG, CAPSULE DR, ORAL, BRECKENRIDG E, 90 ea. BOTTLE Active [id number] 4 2023 90 Pharmac y Data Transac tion Service Facilit y DULOXETINE HCL (DULOXETINE HCL), 60 MG, CAPSULE DR, ORAL, BRECKENRIDG E, 90 ea. BOTTLE Active [id number] 4 2023 90 Pharmac y Data Transac tion Service Facilit y LIDOCAINE (lidocaine) , 5 %, ADH. PATCH, TOPICAL, AMNEAL PHARMACE, 30 ea. BOX Active [id number] 4 2023 30 Pharmac y Data Transac tion Service Facilit y LISINOPRIL (lisinopril ), 10 MG, TABLET, ORAL, LUPIN PHARMACEU, 1000 ea. BOTTLE Active [id number] 4 2023 30 Pharmac y Data Transac tion Service Facilit y LISINOPRIL (lisinopril ), 10 MG, TABLET, ORAL, LUPIN PHARMACEU, 1000 ea. BOTTLE Active [id number] 4 2023 30 Pharmac y Data Transac tion Service Facilit y LISINOPRIL (LISINOPRIL ), 5MG, TABLET, ORAL, LUPIN PHARMACEU, 1000 ea. BOTTLE Active [id number] 3 2022 30 Pharmac y Data Transac tion Service Facilit y LISINOPRIL (LISINOPRIL ), 5MG, TABLET, ORAL, LUPIN PHARMACEU, 1000 ea. BOTTLE Active [id number] 4 2023 30 Pharmac y Data Transac tion Service Facilit y LISINOPRIL- HCTZ (LISINOPRIL /HYDROCHLOR OTHIAZIDE), 10-12.5MG, TABLET, ORAL, LUPIN PHARMACEU, 100 ea. BOTTLE Active [id number] 4 2023 30 Pharmac y Data Transac tion Service Facilit y LISINOPRIL- HCTZ (LISINOPRIL /HYDROCHLOR OTHIAZIDE), 10-12.5MG, TABLET, ORAL, LUPIN PHARMACEU, 100 ea. BOTTLE Active [id number] 4 2023 30 Pharmac y Data Transac tion Service Facilit y SULFAMETHOX AZOLE-TRIME THOPRIM (sulfametho xazole/trim ethoprim), 800-160 MG, TABLET, ORAL, [facility] [employer], 100 ea. BOTTLE Active [id number] 4 2023 14 Pharmac y Data Transac tion Service Facilit y Allergies, Adverse Reactions, Alerts Combined list of allergies from Department of Defense and Veterans Affairs facilities. It does not include entries that were removed or entered in error. Substance Category Reaction Severity Reaction type Status Date Reported Comments Source acetaminophe n-hydrocodon e Drug allergy Active One or More [facility] Facilities SOUND PRINTER ADHESIVES Propensity to adverse reaction (finding) active 0 [facility] Adhesives Allergy to substance Active One or More A Facilities SOUND PRINTER HYDROCODONE Drug allergy (disorder) active 0 [facility] Latex Drug allergy Active One or More A Facilities SOUND PRINTER LATEX GLOVE Propensity to adverse reactions to drug (finding) active 0 [facility] VICODIN Propensity to adverse reactions to drug (finding) active 0 [facility] Immunizations Combined list of available immunizations from the Department of Defense and Veterans Affairs facilities. Immunization Series Date Given Administered By Site Reaction Lot Number CVX Code Drug Emergency Room Clinician Status Comments Source COVID-19, mRNA, LNP-S, PF, 30 mcg/0.3 mL dose [facility] [place] ([facility] Not Given COVID-19, mRNA, LNP-S, PF, 30 mcg/0.3 mL dose [facility] COVID-19, mRNA, LNP-S, PF, 30 mcg/0.3 mL dose 2020 [facility] [place] (P[place]) Not Given COVID-19, mRNA, LNP-S, PF, 30 mcg/0.3 mL dose [facility] COVID-19, mRNA, LNP-S, PF, 30 mcg/0.3 mL dose 2020 [facility] [place] (PFR) Not Given COVID-19, mRNA, LNP-S, PF, 30 mcg/0.3 mL dose [facility] Vital Signs Combined list of inpatient and outpatient Vital Signs from Department of Defense and Veterans Affairs, ranging from 12 months to all on record, depending upon the facility. Vital Sign Value Date Comments Source Systolic Blood Pressure 132mm[Hg] 02/04/2020 20:15:44 Ambulatory Pharmacy Diastolic Blood Pressure 78mm[Hg] 02/04/2020 20:15:44 Ambulatory Pharmacy Encounters Combined list of: 1) Encounters from Department of Veterans Affairs facilities going back up to thelast 18 months. 2) Encounters from the Department of Forensic Logic facilities going back up to 280 months. Location Location Details Encounter Type Encounter Number Reason For Visit Attending Provider ADM Date DC Date Status Disposition Source One or More A Facilitie s SOUND PRINTER History 04/22 One or More A Facilit ies SOUND PRINTER Ambulator y Pharmacy Lifetime Pharmacy [id number] 05/13 Ambulat ory Pharmac y Procedures Combined list of: 1) Procedures from Department of Veterans Affairs facilities going back up to thelast 18 months, not all [place] non-surgical procedures are included; 2) All procedures from the Department of Defense facilities. Procedure Procedure Type Code Date Perfomer Comments Sourc e No data available for this section Ambulatory P harmacy Social History Combined list of available smoking, tobacco, and other social history from Department of Defense and Veterans Affairs facilities. Social History Type Response Date Comment Sourc e Female 05/13/2023 Ambulatory Pha rmacy This section is an empty soc ial history section. DoD Sexual Orientation Ambula tory Pharmacy Gender identity Ambulator y Pharmacy Assessment and Plan Combined list of future care activities from Department of Defense and Veterans Affairs facilities (e.g., assessment and plan notes, appointments, orders, and referrals). Additional future care activities may be listed in the Plan of Care section. Result Assessment and Plan Date Source Assessment and Plan No data available for this section 04/01/2024 Ambulatory Pharmacy Functional Status Combined list of recent functional and cognitive assessments recorded at [facility] Defense and [facility] ([facility] Functional Kane Measurement (FIM) Scale: 1 = Total Assistance (Subject = 0% +), 2 = Maximal Assistance (Subject = 25% +), 3 = Moderate Assistance (Subject = 50% +), 4 = Minimal Assistance (Subject = 75% +), 5 = Supervision, 6 = Modified Kane (Device), 7 = Complete Kane (Timely, Safely). Assessment Date/Time Source Assessment Type Assessment Skill Assessment Score Assessment Details No data available for this section
--- OUTSIDE RECORDS SUMMARY | 2024-04-01 05:24 | XMS_ITS | Data Portability ---
Author Organization [place] [facility] [place] - Psych[facility] - Address [address] [place] [address] Care Team Providers Care Rail Switchman Name Role Phone ROBIN PENALOZANN Primary Care Provider Unavailabl e Assessment Encounter Date Assessment Date Assessment LastModified by Organization Details LastModified Time 01/04/2021 01/04/2021 I have reviewed the case presented by the resident and I agree with the assessment and plan as noted. The patient was seen by the preceptor for Office Visit Comments: Preceptor: Oh Espinal MD 40 y/o F with MHx mixed anxiety and depressive disorder, migraine in psych clinic for med check. RTC in 6-8 weeks. RTC in 6-8 weeks. This visit was conducted via [employer] website [employer] using both audio and video during the 2019 COVID-19 pandemic. Patient consented to non face to face service. Patient location: car Provider location: [facility] Start time: 1417 End time: 1424 Participants in visit: pt, resident physician, Dr. Espinal Patient was provided with follow up instructions, including management plan and recommended follow up time-frame. Not available 01/05/2021 10:59:37 03/01/2021 03/01/2021 I have reviewed the case presented by the resident and I agree with the assessment and plan as noted. The patient was seen by the preceptor for Office Visit Comments: Preceptor: Oh Espinal MD 40 y/o F with MHx mixed anxiety and depressive disorder, migraine in psych clinic for med check. RTC in 6-8 weeks. Not available 03/02/2021 15:24:26 04/12/2021 04/12/2021 I have reviewed the case presented by the resident and I agree with the assessment and plan as noted. The patient was seen by the preceptor for Office Visit Comments: Preceptor: Oh Espinal MD 40 y/o F with MHX depression, GERD, IBS, migraines in psych clinic for follow-up. RTC in 6-8 weeks. This visit was conducted via telehealth website [employer] using both audio and video during the 2020. Patient consented to non face to face service. Patient location: home Provider location: [facility] [place] Start time: 1424 End time: 1429 Participants in visit: pt, Dr. Espinal, resident physician Patient was provided with follow up instructions, including management plan and recommended follow up time-frame. Not available 04/13/2021 19:24:50 07/26/2021 07/26/2021 I have reviewed the case presented by the resident and I agree with the assessment and plan as noted. The patient was seen by the preceptor for Office Visit Comments: Preceptor: Oh Espinal MD 40 y/o F with MHx anxiety and depressive disorder in psych clinic for follow up. RTC in 4-6 weeks. This visit was conducted via telehealth website [employer] using both audio and video during the 2019. Patient consented to non face to face service. Patient location: home Provider location: [facility] Start time: 1352 End time: 1401 Participants in visit: pt, resident physician, attending psychiatrist Patient was provided with follow up instructions, including management plan and recommended follow up time-frame. Not available 07/27/2021 09:22:37 Plan of Treatment Reminders Order Date Submit Date Provider Last Modified By Organization Details Last Modified Time Details Appointments None recorded. Lab None recorded. Referral None recorded. Procedures None recorded. Surgeries None recorded. Imaging None recorded. Medication Orders hydroxyzine HCl 50 mg tablet 2020 021 [id number], [address], [place], [address], 15:27:21 duloxetine 30 mg capsule,del ayed release 2020 021 [id number], [address], [place], [address], 15:27:17 duloxetine 60 mg capsule,del ayed release 2020 021 [id number], [address], [place], [address], 15:27:17 duloxetine 30 mg capsule,del ayed release 2021 022 [id number], [address], [place], [address], 15:13:01 duloxetine 60 mg capsule,del ayed release 2021 022 [id number], [address], [place], [address], 2 15:12:56 hydroxyzine HCl 50 mg tablet 2021 022 [id number], [address], [place], [address], 15:12:57 Patient TargetsNo targets recorded. Patient InstructionsNo instructions recorded. Reason for Referral None Reported. Problems Name Problem SNOMED Code Status Onset Date Resolution Date Notes Provider Name and Address Organization Details Recorded Time Multiple environm ental allergie s Active scotty sepulveda [facility] 6 12:23:04 Irritabl e bowel syndrome 46522905 Active celiac disease Ab testing Neg 11/03; improved w/ Gluten free diet scotty sepulveda [facility] 6 12:23:04 Gastroes ophageal reflux disease 743772126 Active scotty sepulveda [facility] 6 12:23:04 Mixed anxiety and depressi ve disorder 730461057 Active hx of post depressi on and took lexapro but felt poor response , wellbutr in was very neg side effects (bad vivid dreams of her hurting her family); zoloft was very good response but had to stop when breast feeding bad w/d (didn't wean) scotty sepulveda [facility] 6 12:23:03 Migraine 91388072 [facility] 12:[facility] Hiatal hernia 31018259 [facility] 12:23:04 Hemorrho ids 50493191 Completed 12/11/2018 tx'd w/ anusol-H C Timbo Mckeon DO [address], [place], [address] , [facility] 9 17:20:55 Female stress incontin ence 17937439 [facility] 7 18:34:40 Pyelonep hritis 45032002 Completed 201412/11/2018 tx'd w/ Levaquin Timbo Mckeon DO [address], [place], [address] , [place] [facility] 9 17:19:51 Insomnia 245551056 [facility] 12:23:03 Fracture of hand 71535633 Completed 200912/11/2018 Left Timbo Mckeon DO [address], [place], [address] , [place] [facility] 9 17:20:04 Tinnitus 29299535 [facility] 12:23:04 Decrease d hearing 499224766 Completed 12/11/2018 Timbo Mckeon DO [address], [place], [address] , [place] [facility] 9 17:19:28 Reduced visual acuity 58581864 Active scotty banda null, [place] - [facility] 6 12:23:04 Sensorin eural hearing loss of bilatera l ears 130782065 Active Asha Bradford [address], [place], [address] , [place] - [facility] 6 13:11:25 Menorrha obi 255663031 Active Margy Becker MD [address], [place], [address] , [place] - [facility] 7 22:56:04 Blood in urine 48025490 Completed 12/11/2018 Timbo Mckeon DO [address], [place], [address] , [place] [facility] 9 17:19:34 Obesity 588726626 Active 2018 Timbo Mckeon DO [address], [place], [address] , [place] [facility] 9 01:18:28 Pregnanc y 37280511 Completed 201903/16/2020 Aliyahjanet Whitehead null, [place] - [facility] 0 12:25:25 Gestatio nal diabetes mellitus class A2 73406326 Active 2019 Aliyahjanet Whitehead null, [place] - [facility] 0 12:25:22 Gestatio nal diabetes mellitus class A2 46997018 Completed 2019 Aliyahjanet Whitehead null, [place] - [facility] 0 12:25:22 Depressi ve disorder 51003630 Active 2020 Yaya Casanova DO [address], [place], [address] , [place] [facility] 1 15:54:10 Notes:hx plantar fasciitis; hx L. trapezius pain/cervicalgia; LABS 04/05 med rec's vol. 5 pg 19, 20; CT Abd/pelvis r/o appy 04/05 med rec's vol 5 pg 25; CT-brain - nl 04/12/15 vol 5 pg 60; CT-abd/pelvis 04/15/15 nl vol 5 pg 67 Problem Notes None recorded. Procedures Surgical History Date Name Laterality Status Provider Name and Address Organization Details Recorded Time 02/25/20 Non-Stress Test completed Malka VANEGAS, [address], [place], [address], [facility] 02/25/2020 13:33:54 02/18/20 20 Non-Stress Test completed Cali Ace MD [address], [place], [address], [facility] 02/18/2020 15:49:47 02/11/20 20 Non-Stress Test completed Cali Ace MD [address], [place], [address], [facility] 02/11/2020 15:03:18 01/12/20 20 Non-Stress Test completed Cali Ace MD [address], [place], [address], [place] [facility] 01/12/2020 18:21:04 12/19/19 19 Date of Last Pap Smear completed Timbo Mckeon DO [address], [place], [address], [facility] 12/24/2018 14:45:47 06/30/19 17 Ortho Corticosteroid Injection completed Vy Feliciano [facility] 06/29/2016 12:26:26 06/29/19 17 Cystoscopy (female) completed Chuck VANEGAS, [address], [place], [address], [facility] 06/28/2016 12:41:47 06/14/19 17 Bladder Scan completed Chuck VANEGAS, [address], [place], [address], [facility] 06/14/2016 13:22:58 04/05/20 16 Tympanometry completed Asha Bradford [address], [place], [address], [facility] 04/05/2016 13:11:04 04/05/20 16 Audiogram.old completed Asha Bradford [address], [place], [address], [facility] 04/05/2016 13:11:04 11/21/19 15 Other completed Georgi Moctezuma MD [address], [place], [address], [facility] 01/13/2016 00:18:30 10/21/19 15 Other completed Georgi Moctezuma MD [address], [place], [address], [facility] 01/13/2016 00:18:30 04/22/19 00 Wilton Teeth Removed completed Georgi Moctezuma MD [address], [place], [address], [facility] 01/12/2016 22:50:32 Oral surgery procedure completed Dena Argueta [facility] 04/06/2016 12:36:17 Imaging Results None recorded. Procedure Notes None recorded. Medical Equipment None Reported. Allergies Allergen ID Allergen Name Allergen Category Reaction Reaction Severity Criticality Documentation Date Start Date Code Code System Note Provider Name and Address Organization Details Recorded Time 071286 latex environme nt,medica tion hives moderate Not available 01/12/2016 82554 91 RxNorm Georgi Moctezuma MD [address], [place], [address], [facility] 6 22:23:54 331673 acetamino phen / hydrocodo ne medicatio n other moderate Not available 04/05/2016 87255 2 RxNorm facia l numbn ess scotty sepulveda, [facility] 6 12:23:03 708775 Wellbutri n medicatio n Not available Not available Not available 06/18/2016 88571 RxNorm vivid dream s/fri ghten ing ; used w/ post partu m grisele carter Moctezuma MD, Georgi Costa [address], [place], [address], [facility] 7 11:10:40 996596 adhesive tape environme nt,medica tion Not available Not available Not available 03/16/2020 Aliyah sepulveda, [facility] 0 12:21:24 Medications Name Sig Start Date Stop Date Status Note LastModified by Organization Details LastModified Time terconazo le 0.4 % vaginal cream 02/24 completed Not Available Not Available Not Available venlafaxi ne ER 37.5 mg capsule,e xtended release 24 hr Take 1 capsule every day by oral route for 7 days. 06/14 completed Not Available Not Available Not Available venlafaxi ne ER 75 mg capsule,e xtended release 24 hr TAKE 1 CAPSULE DAILY BY MOUTH 11/21 completed Not Available Not Available Not Available nitrofura ntoin macrocrys gino 50 mg capsule Take 1 capsule every day by oral route. 01/31 completed Not Available Not Available Not Available Vitamin B-6 25 mg tablet Take 1 tablet twice a day by oral route. 10/19 completed Not Available Not Available Not Available Depo-Medr ol 40 mg/mL suspensio n for injection Take by injectio n route. 11/21 completed Not Available Not Available Not Available Prenatabs Rx 29 mg iron-1 mg tablet Take 1 tablet every day by oral route for 30 days. active Not Available Not Available No t Available cetirizin e 10 mg tablet 08/12 completed Not Available Not Available Not Available cetirizin e 5 mg tablet Take 1 tablet twice a day by oral route for 30 days. 02/11 completed Not Available Not Available Not Available Novolin N NPH U-100 Insulin isophane 100 unit/mL subcutane ous susp 03/16 completed Not Available Not Available Not Available sumatript an 100 mg tablet take 1 tab po x's 1 with headache onset; may repeat dose x's 1 in 2 h if symptoms persist; Max dose 200mg/24 h 09/21 completed Pt stopped taking on 0 Not Available Not Available Not Available Nystop 100,000 unit/gram topical powder APPLY TO THE AFFECTED AREA(S) BY TOPICAL ROUTE 2 TIMES PER DAY active Not Available Not Available No t Available Monistat 7 2 % vaginal cream Insert 1 applicat orful every day by vaginal route for 7 days. 02/24 completed Not Available Not Available Not Available desogestr el-e.estr adiol 0.15 mg-0.02 mg(21)/e. estrad 0.01 mg(5) tablet Take 1 tablet every day by oral route. 08/12 completed Not Available Not Available Not Available sertralin e 100 mg tablet Take 1 tablet every day by oral route for 30 days. 09/12 completed Not Available Not Available Not Available topiramat e 25 mg tablet 1 tab po qHS x's 1 wk, then 1 tab po BID x's 1 wk, then 1 tab po q a.m. and 2 tabs po qHS x's 1 wk, then 2 tabs po BID 01/31 completed Not Available Not Available Not Available hydroxyzi ne HCl 50 mg tablet TAKE ONE TABLET BY MOUTH EVERY NIGHT AT BEDTIME 2021 active Not Available Not Available Not Avai lable Detrol LA 4 mg capsule,e xtended release TAKE 1 CAPSULE DAILY 09/21 completed Pt stopped taking on 0 Not Available Not Available Not Available tramadol 50 mg tablet active Not Available Not Available Not Available butalbita l-acetami nophen-ca ffeine 50 mg-325 mg-40 mg tablet Take 1 tablet every 4 hours by oral route as needed. 07/08 completed Pt stopped taking on 0 Not Available Not Available Not Available oxycodone -acetamin ophen 5 mg-325 mg tablet active Not Available Not Available Not Available amitripty line 25 mg tablet Take 1 tablet every day by oral route for 90 days. 12/11 completed Not Available Not Available Not Available amitripty line 10 mg tablet Take 1 tablet every day by oral route at bedtime. 04/02 completed Not Available Not Available Not Available ferrous sulfate 325 mg (65 mg iron) tablet Take 1 tablet every day by oral route. 03/16 completed Not Available Not Available Not Available propranol ol ER 80 mg capsule,2 4 hr,extend ed release 09/20 completed fatigue Not Available Not Available Not Available fluoxetin e 10 mg capsule active Not Available Not Available Not Available docusate sodium 100 mg capsule Take 1 capsule twice a day by oral route. 09/26 completed Not Available Not Available Not Available sertralin e 25 mg tablet Take 1 tablet every day by oral route for 30 days. 09/12 completed Not Available Not Available Not Available omeprazol e 20 mg capsule,d elayed release Take 1 capsule every day by oral route. 09/21 completed Pt stopped taking on 0 Not Available Not Available Not Available Drysol Dab-O-Mat ic 20 % topical solution Apply three times per week 09/21 completed Pt stopped taking on 0 Not Available Not Available Not Available hydroxyzi ne HCl 25 mg tablet Take 1 tablet twice a day by oral route as needed for 30 days. 01/04 completed Not Available Not Available Not Available alcohol swabs Apply 1 pad by topical route. 03/16 completed Not Available Not Available Not Available ergocalci ferol (vitamin D2) 1,250 mcg (50,000 unit) capsule Take 1 capsule every week by oral route. 12/11 completed not currentl y using this medicati on 12/11/18 mh Not Available Not Available Not Available Vitamin B-6 50 mg tablet Take 1 tablet 3 times a day by oral route. 04/27 completed not currentl y using this medicati on 12/11/18 mh Not Available Not Available Not Available azelastin e 137 mcg (0.1 %) nasal spray [place] 1 spray every day by intranas al route. 12/11 completed not currentl y using this medicati on 12/11/18 mh Not Available Not Available Not Available ibuprofen 600 mg tablet 03/16 completed Not Available Not Available Not Available levofloxa gladis 500 mg tablet active Not Available Not Available No t Available methylpre dnisolone 4 mg tablets in a dose pack Take 1 package by oral route. 11/21 completed Not Available Not Available Not Available ondansetr on 4 mg disintegr ating tablet active Not Available Not Available Not Available fluticaso ne propionat e 50 mcg/actua tion nasal spray,michelle pension SPRAY 2 SPRAYS IN EACH NOSTRIL EVERY DAY active Not Available Not Available No t Available sertralin e 50 mg tablet TAKE ONE TABLET BY MOUTH ONE TIME DAILY 06/09 completed Zoloft Not Available Not Available Not Available Unisom (doxylami ne) 25 mg tablet Take 12.5 mg twice a day by oral route as needed. 01/19 completed Not Available Not Available Not Available dicyclomi ne 10 mg capsule active Not Available Not Available Not Available amoxicill in 875 mg-potass ium clavulana te 125 mg tablet active Not Available Not Available Not Available Dulcolax (bisacody l) 5 mg tablet,de layed release Take 1 tablet every day by oral route as needed. 10/19 completed Not Available Not Available Not Available topiramat e 50 mg tablet Take 1 tablet twice a day by oral route. 04/02 completed Not Available Not Available Not Available duloxetin e 30 mg capsule,d elayed release TAKE ONE CAPSULE BY MOUTH ONE TIME DAILY 2021 active Not Available Not Available Not Avai lable duloxetin e 60 mg capsule,d elayed release TAKE ONE CAPSULE BY MOUTH ONE TIME DAILY 2021 active Not Available Not Available Not Avai lable BD Ultra-Fin e Mini Pen Needle 31 gauge x /16 03/16 completed Not Available Not Available Not Available Vesicare 5 mg tablet TAKE 1 TABLET DAILY 08/12 completed Not Available Not Available Not Available Benadryl 25mg 03/16 completed Not Available Not Available Not Available Vitamin D3 active Not Available Not Available Not Available Zyrtec prn 09/21 completed Pt stopped taking on 0 Not Available Not Available Not Available FreeStyle Lite Strips Take 1 strip 4 times a day by miscell. route. 03/16 completed Not Available Not Available Not Available FreeStyle [place] Lite kit 03/16 completed Not Available Not Available Not Available Pristiq 50 mg tablet,ex tended release TAKE 1 TABLET EVERY DAY BY ORAL ROUTE. 06/14 completed Not Available Not Available Not Available Zyrtec 10 mg capsule Take by oral route. 03/16 completed Not Available Not Available Not Available Myrbetriq 50 mg tablet,ex tended release 11/21 completed Not Available Not Available Not Available BD Insulin Syringe Ultra-Fin e 1 mL 31 gauge x 09/04 completed Not Available Not Available Not Available Lancets,T hin 23 gauge 03/16 completed Not Available Not Available Not Available Rexulti 0.5 mg tablet 11/30 completed Not Available Not Available Not Available Trintelli x 5 mg tablet take 1 tab po q day x's 5 days, then 2 tabs po q day 11/21 completed Not Available Not Available Not Available Se-- 19 29 mg iron-1 mg tablet Take 1 tablet by oral route for 90 days. 08/17 completed Not Available Not Available Not Available Vitals None Recorded Social History Question Answer Notes LastModified by Organizat ion Details LastModified Time Tobacco Smoking Status Never Smoker 12/11/18 Kathy Guallpa [facility] 12/11/2018 16:59:59 Do You Have An Advance Directive? No I Gave Her The Form For The Living Will And Health Power Of Fast Food Manager, She Does Want To Be Resuscitated. She Does Not Want To Be Maintained On Chronic Life Support If There Is Little Hope Of A Meaningful Recovery. - 12/18/2018 Information not available 12/18/2018 What Is Your Level Of Alcohol Consumption? None [email or web address] Information not available 10/27/2019 Are You Blind Or Do You Have Difficulty Seeing? No Information not available 08/12/2017 What Is Your Level Of Caffeine Consumption? Occasional Coffee: 1-2 Cups Daily Information not available 12/11/2018 How Much Tobacco Do You Chew? None Information not available 04/06/2016 In The 14 Days Before Symptom Onset, Have You Had Close Contact With A Laboratory-confi rmed COVID-19 While That Case Was Ill? No [email or web address] Information not available 07/30/2019 In The 14 Days Before Symptom Onset, Have You Had Close Contact With A Person Who Is Under Investigation For COVID-19 While That Person Was Ill? No [email or web address] Information not available 07/30/2019 Have You Been To An Area Known To Be High Risk For COVID-19? No [email or web address] Information not available 07/30/2019 What Type Of Diet Are You Following? REGULAR Low Sodium Information not available 01/12/2016 Which Illicit Or Recreational Drugs Have You Used? None Information not available 12/11/2018 Do You Or Have You Ever Used E-cigarettes Or Vape? 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 No 12/11/18 Mh Information not available 04/06/2016 Have You Traveled Outside Of The [place] In The Last 21 Days (3 Weeks)? No Information not available 04/06/2016 Do You Have Any Advent Beliefs That May Impact Your Health Care Decisions? No Does Not Follow Any Amish Information not available 12/11/2018 Did You Hurt Yourself When You Fell In The Last Year? No 12/11/18 Mh Information not available 04/06/2016 Education: 12 Information not available 12/11/2018 Marital Status Informatio n not available 01/12/2016 What Was The Date Of Your Most Recent Tobacco Screening? 09/12/2020 Information not available 09/15/2020 Are You Sexually Active? Yes Information not available 04/06/2016 At What Age Did You Start Smoking Tobacco? 0 Information not available 04/06/2016 Do You Or Have You Ever Used Smokeless Tobacco? Never Used Smokeless Tobacco Information not available 12/11/2018 How Much Tobacco Do You Smoke? No Information not available 01/12/2016 How Many Years Have You Smoked Tobacco? 0 Information not available 04/06/2016 Sex: Unknown Functional Status Question Answer Note LastModified by Organizat ion Details LastModified Time What is your exercise level? Moderate walking Information not available 01/12/2016 Mental Status Question Answer Note LastModified by Organization D etails LastModified Time Do you have difficulty concentrating, remembering or making decisions? No Information no t available 08/12/2017 Family History Relationship Description Onset Age of this Age Resolved Age Notes LastModified by Organization Details LastModified Time Father Myocardial infarction 55 [email or web address] Not available 04/25 18:44:02 Father Hypertensive disorder [email or web address] Not available 2016 18:44:02 Father Hyperlipidem ia [email or web address] Not available 2016 18:44:02 Paternal Aunt Malignant tumor of cervix [email or web address] Not available 2016 18:44:02 Paternal Aunt Dementia [email or web address] Not a vailable 04/25/2016 18:44:02 Mother Pyelonephrit is [email or web address] Not available 2018 17:32:33 Mother Low blood pressure [email or web address] Not available 2018 17:32:50 Brother Obesity Luca k [email or web address] Not available 12/11/2018 17:33:30 Brother Hearing loss Luca k [email or web address] Not available 12/11/2018 17:33:49 Sister Obesity Lyndsey [email or web address] Not available 12/11/2018 17:34:19 Sister Dysplasia of cervix Samant turner [email or web address] Not available 12/11/2018 17:34:47 Sister Allergic rhinitis Samant turner dderamos Not available 12/11/2018 17:35:02 Son Tinnitus Earle dderamos Not available 12/11/2018 17:35:27 Son Allergic rhinitis Taea m dderamos Not available 12/11/2018 17:36:32 Notes:idiopathic intracrania l hypertension (sister ) Medical History Condition Response Number of Pregancies Y Anxiety Y Enlarged Prostate N Erectile Dysfunction N Depression Y Elevated PSA N Reconstructive surgeries N Urinary Problems Y Headaches/Migraines Y Prolapse N Head, Ears, Eyes, Nose, Throat Problems Y Urinary Tract Infections N Diabetes N Obesity Y Low Testosterone N Cancer N Asthma Endometriosis N Kidney Stone N Heart Disease N Kidney Disease N Gynecological History Statement/Question Response History of STDs? N Date of Last Mammogram Date of LMP 09/23/2020 Abnormal Pap Smear None Period Interval Every 28-32 days Date of Last Pap Smear 12/18/2018 Current Control Method None Period Flow Moderate Contraception None Obstetrics History GPAL:G 3 P 3 0 0 3 Type Value Multiple Births 0 Full Term 3 Induced 0 Spontaneous 0 Premature 0 Living 3 Ectopics 0 Total 3 Immunizations Vaccine Type Date Status Note Provider Nam e and Address Organization Details Recorded Time Influenza, split virus, quadrivalent , PF 1 completed Maile sepulveda [facility] 03/15/2021 12:10:26 COVID-19, mRNA, LNP-S, PF, 30 mcg/0.3 mL dose 1 completed Savana sepulveda [facility] 08/30/2020 10:45:30 COVID-19, mRNA, LNP-S, PF, 30 mcg/0.3 mL dose 1 completed Savana sepulveda [facility] 08/30/2020 10:45:45 COVID-19, mRNA, LNP-S, PF, 30 mcg/0.3 mL dose 1 completed Maile sepulveda [facility] 03/15/2021 11:48:03 Influenza, split virus, trivalent, PF 8 cancelled patient objection Not Available [facility] 05/09/2019 02:33:30 Influenza, MDCK, quadrivalent , PF 8 completed Not Available [facility] 05/09/2019 03:23:32 Influenza, MDCK, quadrivalent , PF 9 completed Not Available [facility] 05/09/2019 03:01:50 Influenza, split virus, quadrivalent , PF 0 completed Savana sepulveda [facility] 01/05/2020 16:31:36 Tdap 07/23/201 3 completed Not Available [facility]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, tries to go to library with youngest child- worried about COVID, entire family vaccinated except daughter- feels better since being out more, baby naps better now, able to do basic errands and be productive Sleep disturbance- sleep still poor, trying to improve sleep hygiene by avoiding phone before bed- takes medicine when baby goes to sleep- turn off light, lies in bed, very tired, and when about to fall asleep, feels like body twitches, then can't go back to sleep- of note, difficult to prescribe sleeping medications for pt as she is : daughter now 10 months old, planning to allow self-weaning Teddy VANEGAS, [address], [place], [address], [place] [facility] 03/29/2021 16:05:30 03/01/2021 text/html 40 y/o F with MH x mixed anxiety and depressive disorder, migraine in psych clinic for med check. Mixed anxiety and depressive disorder- feels that her depression is starting to plateau, medicine helping- pt describes irritation with social problems such as broken washing machine, car repairs, argument with - medications stable, last filled 02/24- sees therapist every Saturday morning- still - does not desire pregnancies, considering tubal ligation or vasectomy for Teddy VANEGAS, [address], [place], [address], [place] [facility] 03/29/2021 14:47:01 04/12/2021 text/html 40 y/o F with MH X depression, GERD, IBS, migraines in psych clinic for follow-up. Mixed anxiety and depressive disorder- feeling better: making effort to be more social, starting to pay bills in person, attended formal dinner with 's unit- daughter sick today, still - describes holiday season as bittersweet , thinking of relatives including great-grandfather who on son's birthday Teddy VANEGAS, [address], [place], [address], [place] [facility] 05/17/2021 14:43:47 07/26/2021 text/html 40 y/o F with MH x anxiety and depressive disorder in psych clinic for follow up. Mixed anxiety and depressive disorder- mood stable- feels that she now reacts better, reacted calmly when she had to call family consumer science teacher to inform that daughter is sick- reports feeling static-y in head , dry mouth, having pins and needles in hands , wondering if it is medication side effect- weaned daughter- problems sleeping, taking melatonin- reassigned to [place], moving in - oldest son will start at [employer] in the fall- excited about changes but also concerned about the stress Teddy VANEGAS, [address] [facility],[address], [place], [address], [place] [facility] 08/02/2021 15:47:04 OBGyn Episode Ob Episode Information Episode Created Date Number of Fetuses Patient Bloodtype Patient rh Status Prepregnancy Weight lbs Domestic Partner Domestic Partner Phone Father Name Special Weapons Unit Officer Status 01/12/20 16 1 CLOSED Fetus Data First Name Last Name Admitted to NICU Weight (g) Sex Living Outcome Pediatric Complications Fetus ID Race Codes Race Delivery Type 3798.83 3 M Full Term [id number] Vaginal Suleiman Calculation SULEIMAN Calculation Method Initial Suleiman Date Initial Exam Date Initial Exam Provider Initial Ultrasound Date Last Menstrual Period Date Ultra Sound Weeks Gestation Conception by IVF Embryo Age at Transfer Date of Transfer 0 Eighteen To Twenty Week Suleiman Update Ultra Sound Date Fundal Height At Umbil Quickening Date Ultra Sound Latest Weeks Gestation Final Suleiman Confirmed By Final Suleiman Confirmed Date Final Suleiman Date Ultra Sound Latest Days Gestation 0 0 Menstrual History Last Menstrual Date Menses Monthly On Bcp Conception Prior Menses Frequency Hcg Plus Date Menarche Onset Age Delivery Information Delivery Date Delivery Type Labor Anesthesia Weeks Gestation Incision Type Labor Labor Length Hrs Delivered By Post Complications Tubal Sterilization Discharge Date Comments 8 Discharge Information Feeding Method Contraceptive Method Maternal HG B and HCT Levels Ob Episode Information Episode Created Date Number of Fetuses Patient Bloodtype Patient rh Status Prepregnancy Weight lbs Domestic Partner Domestic Partner Phone Father Name Special Weapons Unit Officer Status 01/12/20 16 1 CLOSED Fetus Data First Name Last Name Admitted to NICU Weight (g) Sex Living Outcome Pediatric Complications Fetus ID Race Codes Race Delivery Type 3316.89 15 M Full Term [id number] Vaginal Suleiman Calculation SULEIMAN Calculation Method Initial Suleiman Date Initial Exam Date Initial Exam Provider Initial Ultrasound Date Last Menstrual Period Date Ultra Sound Weeks Gestation Conception by IVF Embryo Age at Transfer Date of Transfer 0 Eighteen To Twenty Week Suleiman Update Ultra Sound Date Fundal Height At Umbil Quickening Date Ultra Sound Latest Weeks Gestation Final Suleiman Confirmed By Final Suleiman Confirmed Date Final Suleiman Date Ultra Sound Latest Days Gestation 0 0 Menstrual History Last Menstrual Date Menses Monthly On Bcp Conception Prior Menses Frequency Hcg Plus Date Menarche Onset Age Delivery Information Delivery Date Delivery Type Labor Anesthesia Weeks Gestation Incision Type Labor Labor Length Hrs Delivered By Post Complications Tubal Sterilization Discharge Date Comments 3 Discharge Information Feeding Method Contraceptive Method Maternal HG B and HCT Levels Ob Episode Information Episode Created Date Number of Fetuses Patient Bloodtype Patient rh Status Prepregnancy Weight lbs Domestic Partner Domestic Partner Phone Father Name Special Weapons Unit Officer Status 08/04/19 20 1 O Positive CLOSED Fetus Data First Name Last Name Admitted to NICU Weight (g) Sex Living Outcome Pediatric Complications Fetus ID Race Codes Race Delivery Type Meg 3061.74 6 F [id number] Vaginal Problems Problem Notes 02/03 poss expo sure COVID testintg 02/03 negGDM 3hr GTT pos On insultin, 01/20 increas 12 u qhsAMA, Elevated BMI Del 39+wk, Serial growth u/s. Weekly BPP, NST2/wkHarmony low riskH/O migraine TURNER, H/O depression, stopped all meds.[id number] tea Flu vaccine 01/05/20c/o pressureExposure to Detrol and Alcohol early first trim Problem Name Start Date End Date Resolution Snomed Code Not e Gestational diabetes mellitu s class A2 01/30/2020 [id number] Suleiman Calculation SULEIMAN Calculation Method Initial Suleiman Date Initial Exam Date Initial Exam Provider Initial Ultrasound Date Last Menstrual Period Date Ultra Sound Weeks Gestation Conception by IVF Embryo Age at Transfer Date of Transfer 03/09/20 20 08/04/19 20 08/04/2019 06/03/2019 9 Eighteen To Twenty Week Sueliman Update Ultra Sound Date Fundal Height At Umbil Quickening Date Ultra Sound Latest Weeks Gestation Final Suleiman Confirmed By Final Suleiman Confirmed Date Final Suleiman Date Ultra Sound Latest Days Gestation 0 [email or web address] 08/04/2019 03/09/20 20 0 Pre- Flowsheet Flowsheet Date 08/04/2019 Jackson Score Blood Edema Fundus Height Fundus Units Glucose Ketones Leukocytes Nitrite Labor Signs Protein Cervic Dilation Cervic Effacement Cervic Station none neg Type Weight in lbs Pre/Post Dialysis Refused With clothes 201.086819429447 BP Diastolic BP Location Tested BP Systolic BP Type 80 R arm 138 sitting Fetus Heart Rate Present Fetus Movement Comments Initial ob visit -In office ob dating us today - c/o nausea. Ob u/s reviewed, show viable iup consistent with LMP dating. Reviewed with patient. Nausea, cont. Able to tolerate some po. Reviewed [place], patient would like to proceed. Reviewed diet and course. f/u 2wk, [place] next visit. labs next visit. Flowsheet Date 08/18/2019 Jackson Score Blood Edema Fundus Height Fundus Units Glucose Ketones Leukocytes Nitrite Labor Signs Protein Cervic Dilation Cervic Effacement Cervic Station none neg Type Weight in lbs Pre/Post Dialysis Refused With clothes 202.127652639444 BP Diastolic BP Location Tested BP Systolic BP Type 78 R arm 130 sitting Fetus Heart Rate Present A 150 Fetus Movement Comments ob/fu -Initial ob labs drawn today- c/o pelvic cramping due to constipation on Saturday, Dr. Marquez prescribed Dulcolax (bisacodyl) 5 mg tablet,delayed release. Pt has been feeling better. No other c/o. labs today. [place] test reviewed. Patient would like to proceed. N/V much improved. PTL signs and symptoms reviewed. f/u 5wk. Flowsheet Date 09/22/2019 Jackson Score Blood Edema Fundus Height Fundus Units Glucose Ketones Leukocytes Nitrite Labor Signs Protein Cervic Dilation Cervic Effacement Cervic Station trace none neg Type Weight in lbs Pre/Post Dialysis Refused With clothes 205.214265469437 BP Diastolic BP Location Tested BP Systolic BP Type 80 L arm 132 sitting Fetus Heart Rate Present A 150 Fetus Movement Comments ob/fu - nausea has decreased . c/o pelvic pain when standing or shifting side to side in bed. Reviewed [place] neg. No other c/o. PTL signs and symptoms reviewed. Sched MFM u/s. f/u 4wk. Flowsheet Date 10/20/2019 Jackson Score Blood Edema Fundus Height Fundus Units Glucose Ketones Leukocytes Nitrite Labor Signs Protein Cervic Dilation Cervic Effacement Cervic Station 20 none neg Type Weight in lbs Pre/Post Dialysis Refused With clothes 208.07633502805 BP Diastolic BP Location Tested BP Systolic BP Type 78 R arm 120 sitting Fetus Heart Rate Present A 150 Fetus Movement A Yes Comments ob/fu - MFM scheduled on 10/26. c/o continues to have nausea, frequent crackling in her right ear, nasal congestion, mild nose bleeds. No other c/o. Exam neg, TM neg. recommend saline mist. [facility] u/s sched 10/26. PTL signs and symptoms reviewed. 1hr gluc next visti. f/u 5wk. Flowsheet Date 10/27/2019 Jackson Score Blood Edema Fundus Height Fundus Units Glucose Ketones Leukocytes Nitrite Labor Signs Protein Cervic Dilation Cervic Effacement Cervic Station Type Weight in lbs Pre/Post Dialysis Refused BP Diastolic BP Location Tested BP Systolic BP Type Fetus Heart Rate Present Fetus Movement Comments Flowsheet Date 11/24/2019 Jackson Score Blood Edema Fundus Height Fundus Units Glucose Ketones Leukocytes Nitrite Labor Signs Protein Cervic Dilation Cervic Effacement Cervic Station trace 26 none neg Type Weight in lbs Pre/Post Dialysis Refused With clothes 206.329682819004 BP Diastolic BP Location Tested BP Systolic BP Type 72 L arm 124 sitting Fetus Heart Rate Present A 150 Fetus Movement A Yes Comments Glucose and cbc labs today. Ingrown hair has been having some discomfort. Exam neg. 1hr gluc today. Reviewed [facility] u/s. PTL signs and symptoms reviewed. f/u 2wk. Flowsheet Date 12/08/2019 Jackson Score Blood Edema Fundus Height Fundus Units Glucose Ketones Leukocytes Nitrite Labor Signs Protein Cervic Dilation Cervic Effacement Cervic Station none neg Type Weight in lbs Pre/Post Dialysis Refused With clothes 208.442064993579 BP Diastolic BP Location Tested BP Systolic BP Type 70 L arm 118 sitting Fetus Heart Rate Present A 150 Fetus Movement A Yes Comments ob fu. No complains. Reviewe d 3hr gtt pos. refer to [facility], dietitian. Send glucometer, chem strips, lancets. PTL signs and symptoms reviewed. classes reviewed. f/u 2wk. Flowsheet Date 12/17/2019 Jackson Score Blood Edema Fundus Height Fundus Units Glucose Ketones Leukocytes Nitrite Labor Signs Protein Cervic Dilation Cervic Effacement Cervic Station Type Weight in lbs Pre/Post Dialysis Refused BP Diastolic BP Location Tested BP Systolic BP Type Fetus Heart Rate Present Fetus Movement Comments Flowsheet Date 12/22/2019 Jackson Score Blood Edema Fundus Height Fundus Units Glucose Ketones Leukocytes Nitrite Labor Signs Protein Cervic Dilation Cervic Effacement Cervic Station Type Weight in lbs Pre/Post Dialysis Refused BP Diastolic BP Location Tested BP Systolic BP Type Fetus Heart Rate Present Fetus Movement Comments Flowsheet Date 12/22/2019 Jackson Score Blood Edema Fundus Height Fundus Units Glucose Ketones Leukocytes Nitrite Labor Signs Protein Cervic Dilation Cervic Effacement Cervic Station none neg Type Weight in lbs Pre/Post Dialysis Refused With clothes 207.062835610650 BP Diastolic BP Location Tested BP Systolic BP Type 72 L arm 124 sitting Fetus Heart Rate Present A 145 Fetus Movement A Yes Comments Pt c/o pain on hips when sle eping. Occ tightening muscle on ankle and foot. Denies other c/o. MFM u/s reviewed. BS fasting intermitt elevated, adjusting diet per functional tester typewriters. PTL signs and symptoms reviewed. f/u 2wk. Flowsheet Date 01/05/2020 Jackson Score Blood Edema Fundus Height Fundus Units Glucose Ketones Leukocytes Nitrite Labor Signs Protein Cervic Dilation Cervic Effacement Cervic Station 32 none neg Type Weight in lbs Pre/Post Dialysis Refused With clothes 205.389172833299 BP Diastolic BP Location Tested BP Systolic BP Type 68 L arm 120 sitting Fetus Heart Rate Present A 145 Fetus Movement A Yes Comments Pt c/o pelvic cramping, pain in hip. Also muscle cramping from leg to foot. Pt has history of hemorrhoids, c/o bleeding due to hemorrhoids, pt feels discomfort, itching and burning. Discussed fluids, colace, increase fiber. Discussed leafy green veg, peas etc. BS fasting mildly elevated, adjusting diet, increase excercise. PTL signs and symptoms reviewed. Flu vaccine reviewed, given today. f/u 2wk. Flowsheet Date 01/08/2020 Jackson Score Blood Edema Fundus Height Fundus Units Glucose Ketones Leukocytes Nitrite Labor Signs Protein Cervic Dilation Cervic Effacement Cervic Station Type Weight in lbs Pre/Post Dialysis Refused BP Diastolic BP Location Tested BP Systolic BP Type Fetus Heart Rate Present Fetus Movement Comments Flowsheet Date 01/12/2020 Jackson Score Blood Edema Fundus Height Fundus Units Glucose Ketones Leukocytes Nitrite Labor Signs Protein Cervic Dilation Cervic Effacement Cervic Station 32 none neg Type Weight in lbs Pre/Post Dialysis Refused With clothes 205.746443635142 BP Diastolic BP Location Tested BP Systolic BP Type 72 L arm 112 sitting Fetus Heart Rate Present A 135 Fetus Movement A Yes Comments Ob f/u, c/o still having leg cramps. States had episode of dizziness resolved after Juice. BS has been better. NST reactive. MFM u/s schedule for next . PTL signs and symptoms reviewed. f/u 2wk. Flowsheet Date 01/19/2020 Jackson Score Blood Edema Fundus Height Fundus Units Glucose Ketones Leukocytes Nitrite Labor Signs Protein Cervic Dilation Cervic Effacement Cervic Station Type Weight in lbs Pre/Post Dialysis Refused BP Diastolic BP Location Tested BP Systolic BP Type Fetus Heart Rate Present Fetus Movement Comments Flowsheet Date 01/20/2020 Jackson Score Blood Edema Fundus Height Fundus Units Glucose Ketones Leukocytes Nitrite Labor Signs Protein Cervic Dilation Cervic Effacement Cervic Station 33 none neg Type Weight in lbs Pre/Post Dialysis Refused With clothes 205.214434746118 BP Diastolic BP Location Tested BP Systolic BP Type Fetus Heart Rate Present A 150 Fetus Movement A Yes Comments Ob/fu - c/o dizziness, Mild bilateral swelling on hands and feet, sinus pressure occasional, using antihistamine as needed. BS occas elevated, insulin adjusted per MFM. Recently hospitalized for dizziness, echo neg, holter monitor result pending. NST next visit. f/u 1wk. Flowsheet Date 01/26/2020 Jackson Score Blood Edema Fundus Height Fundus Units Glucose Ketones Leukocytes Nitrite Labor Signs Protein Cervic Dilation Cervic Effacement Cervic Station Type Weight in lbs Pre/Post Dialysis Refused BP Diastolic BP Location Tested BP Systolic BP Type Fetus Heart Rate Present Fetus Movement Comments Flowsheet Date 01/30/2020 Jackson Score Blood Edema Fundus Height Fundus Units Glucose Ketones Leukocytes Nitrite Labor Signs Protein Cervic Dilation Cervic Effacement Cervic Station none neg Type Weight in lbs Pre/Post Dialysis Refused With clothes [id number] BP Diastolic BP Location Tested BP Systolic BP Type 70 R arm 118 sitting Fetus Heart Rate Present A 140 Fetus Movement A Yes Comments ob/fu -NST today - c/o abdom inal tightening. NST reactive, BS controlled monitored by MFM. She states dizziness has improved with antihistamines (zyrtec). RTC weekly for testing. Flowsheet Date 02/02/2020 Jackson Score Blood Edema Fundus Height Fundus Units Glucose Ketones Leukocytes Nitrite Labor Signs Protein Cervic Dilation Cervic Effacement Cervic Station Type Weight in lbs Pre/Post Dialysis Refused BP Diastolic BP Location Tested BP Systolic BP Type Fetus Heart Rate Present Fetus Movement Comments Flowsheet Date 02/09/2020 Jackson Score Blood Edema Fundus Height Fundus Units Glucose Ketones Leukocytes Nitrite Labor Signs Protein Cervic Dilation Cervic Effacement Cervic Station Type Weight in lbs Pre/Post Dialysis Refused BP Diastolic BP Location Tested BP Systolic BP Type Fetus Heart Rate Present Fetus Movement Comments Flowsheet Date 02/11/2020 Jackson Score Blood Edema Fundus Height Fundus Units Glucose Ketones Leukocytes Nitrite Labor Signs Protein Cervic Dilation Cervic Effacement Cervic Station none neg 0cm 50% -3 Type Weight in lbs Pre/Post Dialysis Refused With clothes .[id number] BP Diastolic BP Location Tested BP Systolic BP Type 76 L arm 124 sitting Fetus Heart Rate Present A 140 Fetus Movement A Yes Comments ob/fu -NST today - Pt was se en by [facility] on Saturday02/09/2020 - Covid 19 test was Negative 02/07/2020 , c/o feeling tired due to , abdominal tightening. PTL signs and symptoms reviewed. NST reactive. GBS today. f/u 1wk. Flowsheet Date 02/16/2020 Jackson Score Blood Edema Fundus Height Fundus Units Glucose Ketones Leukocytes Nitrite Labor Signs Protein Cervic Dilation Cervic Effacement Cervic Station Type Weight in lbs Pre/Post Dialysis Refused BP Diastolic BP Location Tested BP Systolic BP Type Fetus Heart Rate Present Fetus Movement Comments Flowsheet Date 02/18/2020 Jackson Score Blood Edema Fundus Height Fundus Units Glucose Ketones Leukocytes Nitrite Labor Signs Protein Cervic Dilation Cervic Effacement Cervic Station trace none neg Type Weight in lbs Pre/Post Dialysis Refused With clothes [phone] BP Diastolic BP Location Tested BP Systolic BP Type 82 L arm 122 sitting Fetus Heart Rate Present A 135 Fetus Movement A Yes Comments No c/o. MFM BPP nl, BS good. Labor signs and symptoms reviewed. Questions answered. f/u 1wk. Flowsheet Date 02/23/2020 Jackson Score Blood Edema Fundus Height Fundus Units Glucose Ketones Leukocytes Nitrite Labor Signs Protein Cervic Dilation Cervic Effacement Cervic Station Type Weight in lbs Pre/Post Dialysis Refused BP Diastolic BP Location Tested BP Systolic BP Type Fetus Heart Rate Present Fetus Movement Comments Flowsheet Date 02/25/2020 Jackson Score Blood Edema Fundus Height Fundus Units Glucose Ketones Leukocytes Nitrite Labor Signs Protein Cervic Dilation Cervic Effacement Cervic Station none neg 0cm 50% -3 Type Weight in lbs Pre/Post Dialysis Refused With clothes 201.368897956078 BP Diastolic BP Location Tested BP Systolic BP Type 80 L arm 120 sitting Fetus Heart Rate Present A 145 Fetus Movement A Yes Comments ob/fu - Pt was at [facility] on Saturday due to having contractions- c/o continues to have contractions , pelvic pressure. Labor signs and symptoms reviewed. NST reactive. f/u 1wk. Flowsheet Date 03/01/2020 Jackson Score Blood Edema Fundus Height Fundus Units Glucose Ketones Leukocytes Nitrite Labor Signs Protein Cervic Dilation Cervic Effacement Cervic Station Type Weight in lbs Pre/Post Dialysis Refused BP Diastolic BP Location Tested BP Systolic BP Type Fetus Heart Rate Present Fetus Movement Comments Flowsheet Date 03/16/2020 Jackson Score Blood Edema Fundus Height Fundus Units Glucose Ketones Leukocytes Nitrite Labor Signs Protein Cervic Dilation Cervic Effacement Cervic Station Type Weight in lbs Pre/Post Dialysis Refused With clothes 192.016356161320 BP Diastolic BP Location Tested BP Systolic BP Type 82 L arm 128 sitting Fetus Heart Rate Present Fetus Movement Comments Menstrual History Last Menstrual Date Menses Monthly On Bcp Conception Prior Menses Frequency Hcg Plus Date Menarche Onset Age 0206/03/2019 Genetic Screening And Infection History Question Response Note Neural Tube Defect (Meningom yelocele, Spina Bifida, Or Anencephaly) false Medications (including Suppl ements, Vitamins, Herbs, OTC Drugs), Illicit/Recreational Drugs, Alcohol true PNV - see medication list Any Other Genetic History false Rash Or Viral Illness Since Last Menstrual Period false Cystic Fibrosis false Mental Retardation/Autism true Oldest Son-asperger syndrome Down Syndrome false Cystic Fibrosis false Mental Retardation/Autism true Oldest Son-asperger syndrome Live With Someone With TB Or Exposed To TB false Patient Or Partner Has Histo ry Of Genital Herpes false Congenital Heart Defect false Patient's Age Will Be 35 Yea rs Or Older At Estimated Date of Delivery true Other Inherited Genetic Or Chromosomal Disorder false Plans and Education First Trimester Discussed Date Discussion Item Discussion Note Discuss ed By 09/22/2019 Anticipated course of care [email or web address] 09/22/2019 Alcohol [email or web address] 09/22/2019 Intimate partner violence jk [email or web address] 09/22/2019 Environmental/work hazards j [email or web address] 09/22/2019 Screening for aneuploidy jki m55 09/22/2019 Nutrition counseling ; special diet; dietary precautions (mercury, listeriosis) [email or web address] 09/22/2019 Childbirth classes/hospital facilities [email or web address] 09/22/2019 HIV and other routine tests [email or web address] 09/22/2019 Risk factors identif ied by history [email or web address] 09/22/2019 Weight gain counseling [email or web address] 5 09/22/2019 Exercise [email or web address] 09/22/2019 Teratogens [email or web address] 09/22/2019 Use of any medicatio ns (including supplements, vitamins, herbs, or OTC drugs) [email or web address] 09/22/2019 [email or web address] 09/22/2019 Sexual activity [email or web address] 09/22/2019 Tobacco/smoking cess ation counseling (ask, advise, assess, assist, and arrange) [email or web address] 09/22/2019 Illicit/recreational drugs j [email or web address] 09/22/2019 Dental care [email or web address] 09/22/2019 Travel [email or web address] 09/22/2019 Seat belt use [email or web address] 09/22/2019 Indications for ultrasonography [email or web address] 09/22/2019 Avoidance of saunas or hot tubs [email or web address] 09/22/2019 Toxoplasmosis precautions (cats/raw meat) [email or web address] 09/22/2019 Amish [email or web address] 09/22/2019 Hospital choice [email or web address] 09/22/2019 Blood transfusion [email or web address] Second Trimester Discussed Date Discussion Item Discussion Note Discuss ed By Third Trimester Discussed Date Discussion Item Discussion Note Discuss ed By Delivery Information Delivery Date Delivery Type Labor Anesthesia Weeks Gestation Incision Type Labor Labor Length Hrs Delivered By Post Complications Tubal Sterilization Discharge Date Comments 0 Induce d 39 11 Discharge Information Feeding Method Contraceptive Method Maternal HG B and HCT Levels
== END 2024-03-27 08:15 | disposition home or self-care (01) ==
LOC: HO.HMGCLDS 08:14
PROVIDERS: PCP Internal Medicine; Visit Provider Internal Medicine
DX: Z00.01 Encounter for general adult medical examination with abnormal findings (principal); E66.01 Morbid (severe) obesity due to excess calories; R73.01 Impaired fasting glucose; E78.2 Mixed hyperlipidemia
CPT/HCPCS: 36415; 80048; 80061; 83036; 84450; 84460

== ENCOUNTER 2024-03-27 08:53 | Outpatient (AMB) | payer OTHER, SELFPAY ==
--- NOTE | 2024-03-27 09:01 | A.OFFPSYCH_ITS ---
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: No Allergies latex Adverse Reaction (Mild, Verified 03/16/24 08:43) hives Medication List - Last Reconciled 03/27/24 by Lynn Kemp APRN acetaminophen 1,000 mg (2 x 500 mg) PO Q6H PRN azelastine 1 spray intranasal BID PRN cholecalciferol (vitamin D3) 25 mcg PO DAILY CPAP (CPAP Machine/Device) As directed duloxetine 60 mg PO DAILY duloxetine 30 mg PO DAILY hydroxyzine HCl 25 mg PO BEDTIME PRN levonorgestrel (Mirena) intrauterine lidocaine 5% 1 patch topical DAILY lisinopril-hydrochlorothiazide 10-12.5 mg 1 tab PO DAILY loratadine (Claritin) 10 mg PO DAILY magnesium oxide 400 mg PO DAILY 30 days Myrbetriq ER (mirabegron) 25 mg PO DAILY 90 days NS HPI- Psychiatric Chief Complaint: consultation HPI Narrative: pt referred by PCP for evaluation of medications. Pt is taking cymbalta 90 mg daily and has felt its not working as well for past few months; she has also noted brain zaps and ringing in her ears frequently; in the past this has only happened when she misses a dose. she has had body twitches and shudders as if she has a chill. She has not missed any doses of medications. She reports increased worries and anxiety for past several months. She has financial worries due to the cost of living; she fears for herself and families' health and wellbeing. 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 Pt reports difficulty with focus and attention, she gets easily distracted, she has trouble finishing tasks and has many projects half done; she feels anxious and worried about all the things she has to do, things that are only partially completed and things she forgets. She has sleep apnea and consistently uses her CPAP which she says has helped her energy and sleep. No SI or HI. No psychosis. PHQ9=22 GAD7= 15 Adult ADHD adenike report scale = 18 Past Psychiatric History: outpt tx since age 22. No IPLOC PAST MEDICTIONS: lexapro- increased anger wellbutrin- very negative/angry zoloft- woorked first time took - did not work on retrial prozac- ok for a bit and then stopped working effexor- excessive weight gain Subjective Subjective Subjective Medication Compliance: Yes Side effects from medications: No Review of Systems Medical Review of Systems: unchanged Mental Status Exam Mental Status Exam Patient Appearance: Well Grooomed and Appropriate Patient Orientation: Person, Place, Time and Situation Level of Consciousness: Awake and Appropriate Patient Behavior: Appropriate, Cooperative and Anxious Mood Description: Anxious and Sad Affect Description: Anxious and Sad Patient Cognition Impaired: No Ability to Follow Directions: Good Speech Pattern: Clear and Appropriate Memory Description: Intact Hallucinations: None Delusions: Not Present Thought Process: Intact Thought Content: positive for Intact Judgement: Good Assessment and Plan Assessment & Plan (1) Major depressive disorder, recurrent, moderate: Status: Acute Code(s): F33.1 - Major depressive disorder, recurrent, moderate (2) SAMMY (generalized anxiety disorder): Status: Acute Code(s): F41.1 - Generalized anxiety disorder Assessment and Plan: differential dx rule out PTSD rule out ADHD Plan increase duloxetine to 120mg daily consider treating ADHD in future. Medications: Changed From duloxetine 60 mg PO DAILY 90 caps 1RF To duloxetine 120 mg (2 x 60 mg) PO DAILY 180 caps 1RF Discontinued duloxetine Discontinued Reason: Doctor's Order 30 mg PO DAILY 90 caps 1RF Counseling and coordination of Care Pt. Self Management counseling: Mod caffeine/ETOH intake, Sleep hygiene, Behavior activation, General coping skills and Problem solving Medication management counseling: Effectiveness, Side effects, Dosing range, Duration, Drug interaction and Adherence Diagnosis and Prognosis Counseling: Accuracy of diagnosis, Prognosis over time, Impact of diagnosis on life functions, Impact of family relationship, Problematic behaviors secondary to diagnosis and Adequacy of current interventions Details: I spent 75 minutes reviewing the record, seeing the patient and documenting in the medical record. Counseling provided to the patient/caregiver as outlined below. Addressed patient/caregiver concerns regarding current medication regime including effective adherence. Addressed patient/caregiver concerns regarding diagnosis and prognosis including accuracy of diagnosis, prognosis over time, impact of diagnosis. Addressed patient/caregiver concerns regarding impact of recent stressors. PFSH Medical History Cervicalgia HTN (hypertension) Decreased hearing of both ears Environmental and seasonal allergies Tinnitus of both ears Knee pain Excessive daytime sleepiness Loud snoring Vitamin D deficiency Impaired fasting glucose Mixed dyslipidemia Morbid obesity Hiatal hernia with gastroesophageal reflux Family history of premature CAD Annual visit for general adult medical examination with abnormal findings Anxiety and depression Surgical History H/O endoscopy H/O wisdom tooth extraction Family History Father Substance use disorder Mental health disorder Alcoholism Myocardial infarction acute, Onset Age: 55 Depression Maternal Uncle Testicular cancer Social History Household Members: Spouse and Children Housing: House Alcohol intake: current Alcohol intake frequency: holidays/special occasions only Patient Tobacco Use Status: Never used Tobacco e-Cigarette/Vaping Use: Never Used Current occupational status: unemployed and other Sexual orientation: Straight/Heterosexual Gender identity: Female Cognitive needs: No Hearing needs: No Vision needs: Yes Social History: and has 3 children age 21, 16, 4. H is combat vet . family has moved around a lot due to pt grew up in [place] [facility]. lived with both parents; after her father lost his job they all moved in with grandmother; family experienced severe poverty- very traumatic. no running water, no food, no electricity at times. no telephone, no flushing toilets no lights. Father became ETOHIC and massive heart attack at age 55. Pt has 3 siblings. Substance History: none Trauma History: childhood severe poverty Coding Level of Care Code Tele Diag Eval w/Med (34159) Diagnoses Major depressive disorder, recurrent, moderate F33.1 SAMMY (generalized anxiety disorder) F41.1
== END 2024-03-27 10:15 | disposition home or self-care (01) ==
PROVIDERS: PCP Internal Medicine; Visit Provider Clinical Nurse Specialist Psychiatric/Mental Health
DX: F33.1 Major depressive disorder, recurrent, moderate (principal); F41.1 Generalized anxiety disorder
CPT/HCPCS: 90792

== ENCOUNTER 2024-04-01 10:12 | Outpatient (AMB) | payer OTHER, SELFPAY ==
[2024-04-01 10:56] VITALS: BP 122/78; PULSE 88; O2SAT 98; BMI 45.9
--- NOTE | 2024-04-01 10:56 | A.OFFPC_ITS ---
Vital Signs 04/01/24 10:56 Height 5 ft 1 in Weight 243 lb BMI 45.9 BP 122/78 Blood Pressure Location Rt brachial Position Sitting Pulse 88 Pulse Source Pulse Oximeter Pulse Oximetry (%) 98 Oxygen Delivery Method Room Air Intake Visit Reasons: PE Intake Note: Pt is today for her PE: Last mammogram 04/08/23, papsmear 05/29/22 Allergies latex Adverse Reaction (Mild, Verified 04/01/24 11:23) hives Medication List - Last Reconciled 04/01/24 by Arelis Serrano MD azelastine 1 spray intranasal BID PRN cholecalciferol (vitamin D3) 25 mcg PO DAILY CPAP (CPAP Machine/Device) As directed duloxetine 120 mg (2 x 60 mg) PO DAILY hydroxyzine HCl 25 mg PO BEDTIME PRN levonorgestrel (Mirena) intrauterine lidocaine 5% 1 patch topical DAILY lisinopril-hydrochlorothiazide 10-12.5 mg 1 tab PO DAILY loratadine (Claritin) 10 mg PO DAILY magnesium oxide 400 mg PO DAILY 30 days Myrbetriq ER (mirabegron) 25 mg PO DAILY 90 days NS Tobacco use date assessed: 04/01/24 Dental Screening Dental Screen Date: 04/01/24 Did you have a dental visit in the last 12 months?: No Did you have a dental problem in the last 6 months where you did not have access to dental care?: No Was dental information given to patient?: No HPI PE HPI Details - The patient is a 43-year-old female pr esenting today for physical exam.. - been diagnosed to have Benign endometr ial polyps , with biopsies confirming benign status. Polypectomies were performed in July and September 2022. - Familial hypertriglyceridemia was iden tified, with current triglyceride levels at 319 mg/dL. - Hypercalcemia was noted with a current calcium level of 10.3 mg/dL. - Hiatal hernia with occasional heartbur n, self-managed with ihyr-[id number] antacids. 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 - Blood sugar levels are slightly elevat ed; fasting glucose at 115 mg/dL categorizes her as pr-diabetic. - Current BMI suggests obesity, impactin g weight management efforts despite diet adjustments. - Allergic rhinitis managed occasionally with nasal spray and evyx-mgu-[id number] medications. -up-to-date with her cervical cancer scr eening with last Pap smear done 05/29/2022 with negative findings, and is up-to-date with her screening mammogram, last done 04/08/2023 with negative findings, [facility] Medical History (Updated 04/01/24 @ 11:43 by Arelis Serrano MD) Hypertriglyceridemia Positive Tinel's sign Positive Phalen maneuver Cervicalgia HTN (hypertension) Decreased hearing of both ears Environmental and seasonal allergies Tinnitus of both ears Knee pain Excessive daytime sleepiness Loud snoring Vitamin D deficiency Impaired fasting glucose Mixed dyslipidemia Morbid obesity Hiatal hernia with gastroesophageal reflux Family history of premature CAD Annual visit for general adult medical examination with abnormal findings Anxiety and depression Surgical History H/O endoscopy H/O wisdom tooth extraction Family History Father Substance use disorder Mental health disorder Alcoholism Myocardial infarction acute, Onset Age: 55 Depression Maternal Uncle Testicular cancer Social History Household Members: Spouse and Children Housing: House Alcohol intake: current Alcohol intake frequency: holidays/special occasions only Patient Tobacco Use Status: Never used Tobacco e-Cigarette/Vaping Use: Never Used Current occupational status: unemployed and other Sexual orientation: Straight/Heterosexual Gender identity: Female Cognitive needs: No Hearing needs: No Vision needs: Yes Questionnaire Thrive Questionnaire Date Thrive assessed: 04/01/24 I am a: Patient What is your living situation today?: I have a steady place to live Within the past 12 months, did the food you bought not last and you didn't have the money to get more?: Never true Within the past 12 months, did you worry whether your food would run out before you got money to buy more?: Never true Do you have trouble paying for medicines?: No Do you have trouble getting transportation to medical appointments?: No Do you have trouble paying your heating and electricity bill?: No Do you have trouble taking care of your child, family member or friend?: No Do you have trouble with day-to-day activities such as bathing, preparing meals, shopping, managing finances, etc.?: Yes Are you currently unemployed and looking for a job?: I choose not to answer this question Are you interested in more education?: Yes Please select the resources that you would like help with: Daily support Currently or been in a relationship where the following occur: No concerns reported THRIVE Score: 0 AUDIT C Alcohol Use Questionnaire (AUDIT-C) 1. How often do you have a drink containing alcohol?: Monthly or less 2. How many drinks containing alcohol do you have on a typical day when you are drinking?: 1 or 2 3. How often do you have six or more drinks on one occasion?: Never Total Score: 1 SAMMY-7 AMB Questionnaire SAMMY-7 Date SAMMY - 7 assessed: 01/06/24 Source: Developed by Drs. Charles Gerardo, Negrita Kunz, Horacio Interiano and colleagues, with an educational ventura from [employer]. Review of Systems Const Denies headache(s) and Denies weakness Eyes Denies change in vision ENT Denies dizziness, Denies headache(s), Denies nasal congestion, Denies nasal discharge and Denies sore throat Card Denies chest pain, Denies lightheadedness, Denies palpitations and Denies dyspnea Resp Denies chest congestion, Denies cough, Denies dyspnea and Denies wheezing GI Denies abdominal pain, Denies change in bowel habits and Denies heartburn Denies urinary frequency, Denies dysuria and Denies urinary urgency Musc Reports no additional complaints Skin/Breast Denies breast pain, Denies breast mass, Denies lesions and Denies rash Neuro Denies dizziness, Denies headache(s), Denies focal weakness and Denies weakness Psych Reports no additional complaints Endo Denies polydipsia, Denies polyuria and Denies palpitations Ricardo/Lymph Reports no additional complaints Aller/Immun Denies wheezing Physical exam (Primary Care) Vital Signs: Last Vital Signs Pulse 88 04/01/24 10:56 BP 122/78 04/01/24 10:56 Pulse Ox 98 04/01/24 10:56 Oxygen Delivery Method Room Air 04/01/24 10:56 BMI result Body Mass Index 45.9 BMI Assessment/Plan discussion: High BMI High, discussed plan: lifestyle, weight reduction, dietary and physical activity Tobacco/Smoking Status: Tobacco use Status Tobacco use date assessed 04/01/24 04/01/24 11:03 Patient Tobacco Use Status Never used Tobacco 04/01/24 10:58 e-Cigarette/Vaping Use Never Used 04/01/24 10:58 Thrive Assessment: Date of Thrive Assessment Date Thrive assessed 04/01/24 04/01/24 11:03 Currently or been in a relationship where the following occur: No concerns reported Const Other: Alert oriented x3, morbidly obese, no acute cardiorespiratory distress noted Orientation/consciousness: patient oriented x3 HENMT Ears: external ears normal General nose exam: Normal external nose present Face and sinus: Yes face symmetric Mouth: moist mucous membranes Eyes General: appearance normal, both eyes and all related structures Neck Other: Supple, no lymphadenopathy, thyroid gland nonpalpable Resp Auscultation: clear to auscultation bilaterally Cardio Other: S1-S2 present regular rate and rhythm GI Inspection: Yes normal to inspection and Yes abdominal wall ecchymosis Palpation (GI): Soft to palpation, nontender, no guarding and no masses General: Yes no CVA tenderness Back/Spine/Pelvis Back: no CVA tenderness Thoracic/Lumbar Spine: straight leg raise negative bilaterally, paraspinal muscle tenderness bilaterally in the lower lumbar and thoraco-lumbar ROM limited Skin General skin exam: no rashes or lesions noted Neuro General: patient oriented x3, gait normal, tone normal, moves all extremities, Normal light touch and pain sensation, no focal motor deficits and CN's II-XI intact bilaterally Extrem Other: Positive Phalen's and Tinel sign bilaterally General: Yes full ROM, Yes no joint enlargement, Yes no clubbing, cyanosis or edema, Yes no calf tenderness and Yes normal gait Psych Appearance: grossly normal and well kempt Affect: normal affect Coding Level of Care Code Est Pt Prev Care 40-64y(23208) Diagnoses Annual visit for general adult medical examination with abnormal findings Z00.01 Positive Phalen maneuver R20.2 Positive Tinel's sign R20.2 Anxiety and depression F41.9; F32.A Morbid obesity E66.01 Impaired fasting glucose R73.01 DARON (obstructive sleep apnea) G47.33 Abnormal uterine bleeding N93.9 Mixed stress and urge urinary incontinence N39.46 Hypertriglyceridemia E78.1 Assessment & Plan Assessment & Plan (1) Annual visit for general adult medical examination with abnormal findings: Code(s): Z00.01 - Encounter for general adult medical examination with abnormal findings Category: Medical (2) Positive Phalen maneuver: Code(s): R20.2 - Paresthesia of skin Category: Medical (3) Positive Tinel's sign: Code(s): R20.2 - Paresthesia of skin Category: Medical (4) Anxiety and depression: Code(s): F41.9 - Anxiety disorder, unspecified; F32.A - Depression, unspecified Category: Medical (5) Morbid obesity: Code(s): E66.01 - Morbid (severe) obesity due to excess calories Category: Medical (6) Impaired fasting glucose: Code(s): R73.01 - Impaired fasting glucose Category: Medical (7) DARON (obstructive sleep apnea): Comment: Moderate degree of sleep apnea. The AHI was 16/hr and oxygen ellis was 83% Code(s): G47.33 - Obstructive sleep apnea (adult) (pediatric) Category: Medical (8) Abnormal uterine bleeding: Code(s): N93.9 - Abnormal uterine and vaginal bleeding, unspecified Category: Medical (9) Mixed stress and urge urinary incontinence: Code(s): N39.46 - Mixed incontinence Category: Medical (10) Hypertriglyceridemia: Code(s): E78.1 - Pure hyperglyceridemia Category: Medical Plan During today's visit, we reviewed the patient's chronic and newly identified conditions, emphasizing preventative care and symptom management. I discussed the need for lifestyle modifications, including diet and exercise to manage triglycerides and prediabetes. The possibility of familial hypertriglyceridemia was noted, and potential supplements like fish oil were recommended. We reviewed her current medication for allergic rhinitis, with advice on continuing therapy as needed and considering formal allergy testing. Discussions regarding potential weight loss surgery took place, encouraging insurance consultation for coverage details. I explained the necessary diabetic precautions, suggesting regular glucose checks and dietary adjustments with potential for diabetes risk later. For her bilateral wrist pain, a nerve conduction study was ordered.. Fasting lipid panel and ionized calcium ordered on this visit. - Mammogram scheduled for 04/13/2024 - Regular Pap smears, most recently in 2021. - Discussion on dietary modifications to address elevated triglycerides and hypercalcemia. - Suggested exercises include walking as tolerated; recommended fish oil for triglycerides. - Continued vitamin D supplementation advised. - Flu and COVID vaccinations confirmed; tetanus vaccination up-to-date. - Monitoring of BMI and discussions for potential weight loss strategies, including possible bariatric interventions. - CPAP usage is noted for sleep apnea management with regular follow-ups. - Encouraged use of water aerobics at [facility] to improve back pain and enhance activity levels. -has appointment already scheduled with nurse psychiatrist at [facility] Meka Barkley for further evaluation and treatment of her depression/anxiety Orders: Orders NE nerve conduction velocity 04/01/24 R20.2 - Paresthesia of skin Lipid Panel 08/20/24 E66.01 - Morbid (severe) obesity due to excess calories, E78.1 - Pure hyperglyceridemia Calcium, Ionized 08/20/24 E83.52 - Hypercalcemia
--- OUTSIDE RECORDS SUMMARY | 2024-04-02 00:10 | XMS_ITS | Continuity of Care Document ---
Author Name [facility] Organization [facility] Care Team Providers Care Cow Buyer Name Role Phone [facility] Unavailable Unavailable Medications Combined list of outpatient [...] CITRON PHARMA L, 500 ea. BOTTLE Active [id number] 4 2023 10 Pharmac y Data Transac tion Service Facilit y Benzonatate ([employer]) 100 CAPSULE in 1 BOTTLE Active [id number] 06/26/19 2 4 2023 60 Pharmac y Data Transac tion Service Facilit y DIAZEPAM (DIAZEPAM), 5MG, TABLET, ORAL, IVAX PHARMACEUT, 100 ea. BOTTLE Active [id number] 4 2023 10 Pharmac y Data Transac tion Service Facilit y DULOXETINE HCL (DULOXETINE HCL), 60 MG, CAPSULE DR, ORAL, BRECKENRIDG E, 90 ea. BOTTLE Active [id number] 4 2023 90 Pharmac y Data Transac tion Service Facilit y DULOXETINE HCL (DULOXETINE HCL), 60 MG, CAPSULE DR, ORAL, BRECKENRIDG E, 90 ea. BOTTLE Active [id number] 4 2023 90 Pharmac y Data Transac tion Service Facilit y LIDOCAINE (lidocaine) , 5 %, ADH. PATCH, TOPICAL, AMNEAL PHARMACE, 30 ea. BOX Active [id number] 4 2023 30 Pharmac y Data Transac tion Service Facilit y LISINOPRIL (lisinopril ), 10 MG, TABLET, ORAL, LUPIN PHARMACEU, 1000 ea. BOTTLE Active [id number] 4 2023 30 Pharmac y Data Transac tion Service Facilit y LISINOPRIL (lisinopril ), 10 MG, TABLET, ORAL, LUPIN PHARMACEU, 1000 ea. BOTTLE Active [id number] 4 2023 30 Pharmac y Data Transac tion Service Facilit y LISINOPRIL (LISINOPRIL ), 5MG, TABLET, ORAL, LUPIN PHARMACEU, 1000 ea. BOTTLE Active [id number] 3 2022 30 Pharmac y Data Transac tion Service Facilit y LISINOPRIL (LISINOPRIL ), 5MG, TABLET, ORAL, LUPIN PHARMACEU, 1000 ea. BOTTLE Active [id number] 4 2023 30 Pharmac y Data Transac tion Service Facilit y LISINOPRIL- HCTZ (LISINOPRIL /HYDROCHLOR OTHIAZIDE), 10-12.5MG, TABLET, ORAL, LUPIN PHARMACEU, 100 ea. BOTTLE Active [id number] 4 2023 30 Pharmac y Data Transac tion Service Facilit y LISINOPRIL- HCTZ (LISINOPRIL /HYDROCHLOR OTHIAZIDE), 10-12.5MG, TABLET, ORAL, LUPIN PHARMACEU, 100 ea. BOTTLE Active [id number] 4 2023 30 Pharmac y Data Transac tion Service Facilit y SULFAMETHOX AZOLE-TRIME THOPRIM (sulfametho xazole/trim ethoprim), 800-160 MG, TABLET, ORAL, RISING PHARM, 100 ea. BOTTLE Active [id number] 4 2023 14 Pharmac y Data Transac tion Service Facilit y Allergies, Adverse Reactions, Alerts Combined list of allergies from Department of Defense and Veterans Affairs facilities. It does not include entries that were removed or entered in error. 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 C[employer] COUN[employer] FEEDER ADHESIVES Propensity to adverse reaction (finding) active 0 [facility] Adhesives Allergy to substance Active One or More A Facilities [employer] COUNTER FEEDER HYDROCODONE Drug allergy (disorder) active 0 [facility] Latex Drug allergy Active One or More A Facilities CARTON COUNTER FEEDER LATEX GLOVE Propensity to adverse reactions to drug (finding) active 0 [facility] VICODIN Propensity to adverse reactions to drug (finding) active 0 [facility] Immunizations Combined list of available immunizations from the Department of Defense and Veterans Affairs facilities. Immunization Series Date Given Administered By Site Reaction Lot Number CVX Code Drug Technician Automated Equipment Status Comments Source COVID-19, mRNA, LNP-S, PF, 30 mcg/0.3 mL dose 2020 [facility] ([place] Not Given COVID-19, mRNA, LNP-S, PF, 30 mcg/0.3 mL dose DoD COVID-19, mRNA, LNP-S, PF, 30 mcg/0.3 mL dose 2020 [place] (PFR[place] Not Given COVID-19, mRNA, LNP-S, PF, 30 mcg/0.3 mL dose DoD COVID-19, mRNA, LNP-S, PF, 30 mcg/0.3 mL dose 2020 [place] (PFR) Not Given COVID-19, mRNA, LNP-S, [...] months. 2) Encounters from the Department of [employer] facilities going back up to 280 months. Location Location Details Encounter Type Encounter Number Reason For Visit Attending Provider ADM Date DC Date Status Disposition Source One or More A Facilitie s CARTON COUNTER FEEDER History 04/22 One or More A Facilit ies [employer] COUNTER FEEDER Ambulator y Pharmacy Lifetime Pharmacy [id number] 05/13 Ambulat ory Pharmac y Procedures Combined list of: 1) Procedures from Department of Veterans Affairs facilities going back up to thelast 18 months, not all [place] non-surgical procedures are included; 2) All procedures [...] Sourc e Female 05/13/2023 Ambulatory Pha rmacy Sexual Orientation Ambula tory Pharmacy Gender identity Ambulator y Pharmacy This section is an empty soc ial history section. DoD Assessment and Plan Combined list of future care activities from Department of Defense and Veterans Affairs facilities (e.g., assessment and plan notes, appointments, orders, and referrals). Additional future care activities may be listed in the Plan of Care section. Result Assessment and Plan Date Source Assessment and Plan No data available for this section 04/02/2024 Ambulatory Pharmacy Functional Status Combined list of recent functional and cognitive assessments recorded at [facility] of Defense and [facility] ([facility] Functional [place] Measurement (FIM) Scale: 1 = Total Assistance (Subject = 0% +), 2 = Maximal Assistance (Subject = 25% +), 3 = Moderate Assistance (Subject = 50% +), 4 = Minimal Assistance (Subject = 75% +), 5 = Supervision, 6 = Modified [place] (Device), 7 = Complete [place] (Timely, Safely). Assessment Date/Time Source Assessment Type Assessment Skill Assessment Score Assessment Details No data available for this section
== END 2024-04-01 11:46 | disposition home or self-care (01) ==
PROVIDERS: PCP Internal Medicine; Visit Provider Internal Medicine
DX: Z00.00 Encounter for general adult medical examination without abnormal findings (principal); R20.2 Paresthesia of skin; E66.01 Morbid (severe) obesity due to excess calories; Z68.42 Body mass index [BMI] 45.0-49.9, adult; F41.9 Anxiety disorder, unspecified; F32.A Depression, unspecified; R73.01 Impaired fasting glucose; G47.33 Obstructive sleep apnea (adult) (pediatric); N93.9 Abnormal uterine and vaginal bleeding, unspecified; N39.46 Mixed incontinence; E78.1 Pure hyperglyceridemia

== ENCOUNTER → 2024-04-01 10:12 | Outpatient (BNVA) | payer OTHER, SELFPAY | PROVIDERS: PCP Internal Medicine; Visit Provider Internal Medicine ==

== ENCOUNTER 2024-04-06 12:38 | Outpatient (REF) | payer OTHER, SELFPAY ==
--- NOTE | ~2024-04-06 | US_ITS ---
EXAMINATION: US RETROPERITONEAL COMPLETE (RENAL) CLINICAL INFORMATION: Mixed incontinence. COMPARISON: CT abdomen and pelvis 12/21/2022. TECHNIQUE: Real-time imaging of the kidneys and bladder. Limited visualization due to bowel gas. FINDINGS: RIGHT KIDNEY: 10.7 x 5.4 x 5.9 cm (SAG x AP x TRV). No hydronephrosis. No renal calculi. Renal cortical thickness is normal. Limited visualization. LEFT KIDNEY: 11.9 x 5.6 x 5.1 cm (SAG x AP x TRV). No hydronephrosis. No renal calculi. Renal cortical thickness is normal. Limited visualization. BLADDER: Well distended. Bilateral ureteral jets are demonstrated. Prevoid bladder volume is 374 mL. Postvoid bladder volume is 28 mL. ADDITIONAL FINDINGS: Incidental note on limited images of the right adnexa of a 4.3 x 4.7 x 4.2 cm complex right ovarian cyst. Dedicated pelvic ultrasound imaging recommended for further evaluation. US/US retroperitoneal comp IMPRESSION: 1. No hydronephrosis. No renal calculi. 2. Incidental note on limited images of the right adnexa of a 4.3 x 4.7 x 4.2 cm complex right ovarian cyst. Dedicated pelvic ultrasound imaging recommended for further evaluation This study was presented to me on May 11, 2024 for interpretation. PSA staff will provide results to referring provider at this time. Electronically signed by: Kaitlynn Pereira MD 05/11/2024 07:09 PM [facility]
--- OUTSIDE RECORDS SUMMARY | 2024-04-06 12:40 | XMS_ITS | Continuity of Care Document ---
Author Name [facility] Organization [facility] Care Team Providers Care Funeral Location Manager Name Role Phone [facility] Unavailable Unavailable Medications Combined list of outpatient [...] CITRON PHARMA L, 500 ea. BOTTLE Active [id number] 4 2023 10 Pharmac y Data Transac tion Service Facilit y Benzonatate ([employer]) 100 CAPSULE in 1 BOTTLE Active [id number] 06/26/19 2 4 2023 60 Pharmac y Data Transac tion Service Facilit y DIAZEPAM (DIAZEPAM), 5MG, TABLET, ORAL, IVAX PHARMACEUT, 100 ea. BOTTLE Active [id number] 4 2023 10 Pharmac y Data Transac tion Service Facilit y DULOXETINE HCL (DULOXETINE HCL), 60 MG, CAPSULE DR, ORAL, BRECKENRIDG E, 90 ea. BOTTLE Active [id number] 4 2023 90 Pharmac y Data Transac tion Service Facilit y DULOXETINE HCL (DULOXETINE HCL), 60 MG, CAPSULE DR, ORAL, BRECKENRIDG E, 90 ea. BOTTLE Active [id number] 4 2023 90 Pharmac y Data Transac tion Service Facilit y LIDOCAINE (lidocaine) , 5 %, ADH. PATCH, TOPICAL, AMNEAL PHARMACE, 30 ea. BOX Active [id number] 2023 30 Pharmac y Data Transac tion Service Facilit y LISINOPRIL (lisinopril ), 10 MG, TABLET, ORAL, LUPIN PHARMACEU, 1000 ea. BOTTLE Active [id number] 4 2023 30 Pharmac y Data Transac tion Service Facilit y LISINOPRIL (lisinopril ), 10 MG, TABLET, ORAL, LUPIN PHARMACEU, 1000 ea. BOTTLE Active [id number] 4 2023 30 Pharmac y Data Transac tion Service Facilit y LISINOPRIL (LISINOPRIL ), 5MG, TABLET, ORAL, LUPIN PHARMACEU, 1000 ea. BOTTLE Active [id number] 3 2022 30 Pharmac y Data Transac tion Service Facilit y LISINOPRIL (LISINOPRIL ), 5MG, TABLET, ORAL, LUPIN PHARMACEU, 1000 ea. BOTTLE Active [id number] 4 2023 30 Pharmac y Data Transac tion Service Facilit y LISINOPRIL- HCTZ (LISINOPRIL /HYDROCHLOR OTHIAZIDE), 10-12.5MG, TABLET, ORAL, LUPIN PHARMACEU, 100 ea. BOTTLE Active [id number] 4 2023 30 Pharmac y Data Transac tion Service Facilit y LISINOPRIL- HCTZ (LISINOPRIL /HYDROCHLOR OTHIAZIDE), 10-12.5MG, TABLET, ORAL, LUPIN PHARMACEU, 100 ea. BOTTLE Active [id number] 4 2023 30 Pharmac y Data Transac tion Service Facilit y SULFAMETHOX AZOLE-TRIME THOPRIM (sulfametho xazole/trim ethoprim), 800-160 MG, TABLET, ORAL, RISING PHARM, 100 ea. BOTTLE Active [id number] 4 2023 14 Pharmac y Data Transac tion Service Facilit y Allergies, Adverse Reactions, Alerts Combined list of allergies from Department of Defense and Veterans Affairs facilities. It does not include entries that were removed or entered in error. Substance Category Reaction Severity Reaction type Status Date Reported Comments Source acetaminophe n-hydrocodon e Drug allergy Active One or More [facility] Facilities JACK STRIP ASSEMBLER ADHESIVES Propensity to adverse reaction (finding) active 0 [facility] Adhesives Allergy to substance Active One or More A Facilities JACK STRIP ASSEMBLER HYDROCODONE Drug allergy (disorder) active 0 [facility] Latex Drug allergy Active One or More A Facilities JACK STRIP ASSEMBLER LATEX GLOVE Propensity to adverse reactions to drug (finding) active 0 [facility] VICODIN Propensity to adverse reactions to drug (finding) active 0 [facility] Immunizations Combined list of available immunizations from the Department of Defense and Veterans Affairs facilities. Immunization Series Date Given Administered By Site Reaction Lot Number CVX Code Drug Winery Worker Status Comments Source COVID-19, mRNA, LNP-S, PF, 30 mcg/0.3 mL dose 2020 [facility] [place] ([place] Not Given COVID-19, mRNA, LNP-S, PF, 30 mcg/0.3 mL dose DoD COVID-19, mRNA, LNP-S, PF, 30 mcg/0.3 mL dose 2020 [place] (PFR) Not Given COVID-19, mRNA, LNP-S, PF, 30 mcg/0.3 mL dose DoD COVID-19, mRNA, LNP-S, PF, 30 mcg/0.3 mL dose 2020 [place] (PFR) Not Given COVID-19, mRNA, LNP-S, [...] months. 2) Encounters from the Department of [employer] facilities going back up to 280 months. Location Location Details Encounter Type Encounter Number Reason For Visit Attending Provider ADM Date DC Date Status Disposition Source One or More A Facilitie s JACK STRIP ASSEMBLER History 04/22 One or More A Facilit ies JACK STRIP ASSEMBLER Ambulator y Pharmacy Lifetime Pharmacy [id number] 05/13 Ambulat ory Pharmac y Procedures Combined list of: 1) Procedures from [facility] of Veterans Affairs facilities going back up to thelast 18 months, not all [place] non-surgical procedures are included; 2) All procedures [...] Plan No data available for this section 04/06/2024 Ambulatory Pharmacy Functional Status Combined list of recent functional and cognitive assessments recorded at [facility] of Defense and [facility] ([facility] Functional [place] Measurement (FIM) Scale: 1 = Total Assistance (Subject = 0% +), 2 = Maximal Assistance (Subject = 25% +), 3 = Moderate Assistance (Subject = 50% +), 4 = Minimal Assistance (Subject = 75% +), 5 = Supervision, 6 = Modified [place] (Device), 7 = Complete [place] (Timely, Safely). Assessment Date/Time Source Assessment Type Assessment Skill Assessment Score Assessment Details No data available for this section
--- OUTSIDE RECORDS SUMMARY | 2024-04-06 12:41 | XMS_ITS | Data Portability ---
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 This visit was conducted via [employer] website [employer] using both audio and video during the 2019 COVID-19 pandemic. Patient consented to non face to face service. Patient location: car Provider location: [facility] Start time: 1417 End time: 1424 [...] This visit was conducted via telehealth website [employer] using both audio and video during the 2020. Patient consented to non face to face service. Patient location: home Provider location: [facility] Start time: 1424 End time: 1429 [...] This visit was conducted via telehealth website [employer] using both audio and video during the 2019. Patient consented to non face to face service. Patient location: home Provider location: [facility] Start time: 1352 End time: 1401 [...] HCl 50 mg tablet 2020 021 [facility], [address], [place], [address], 15:27:21 duloxetine 30 mg capsule,del ayed release 2020 021 [facility], [address], [place], [address], 15:27:17 duloxetine 60 mg capsule,del ayed release 2020 021 [facility], [address], [place], [address], 15:27:17 duloxetine 30 mg capsule,del ayed release 2021 022 [facility], [address], [place], [address], 15:13:01 duloxetine 60 mg capsule,del ayed release 2021 022 [facility], [address], [place], [address], 2 15:12:56 hydroxyzine HCl 50 mg tablet 2021 022 [facility], [address], [place], [address], 15:12:57 Patient TargetsNo targets recorded. Patient InstructionsNo instructions recorded. Reason for Referral None Reported. Problems Name Problem SNOMED Code Status Onset Date Resolution Date Notes Provider Name and Address Organization Details Recorded Time Multiple environm ental allergie s Active scotty sepulveda [facility] 6 12:23:04 Irritabl e bowel syndrome 15663286 Active celiac disease Ab testing Neg 11/03; improved w/ Gluten free diet scotty sepulveda [facility] 6 12:23:04 Gastroes ophageal reflux disease 765490959 Active scotty sepulveda [facility] 6 12:23:04 Mixed anxiety and depressi ve disorder 126227031 Active hx of post depressi on and took lexapro but felt poor response , wellbutr in was very neg side effects (bad vivid dreams of her hurting her family); zoloft was very good response but had to stop when breast feeding bad w/d (didn't wean) scotty sepulveda [facility] 6 12:23:03 Migraine 48954942 [facility] 12:[facility]03 Hiatal hernia 60567616 [facility] 6 12:23:04 Hemorrho ids 69098669 Completed 12/11/2018 tx'd w/ anusol-H C Timbo Mckeon DO [address], [place], [address] , [facility] 9 17:20:55 Female stress incontin ence 53985433 [facility] 7 18:34:40 Pyelonep hritis 76271709 Completed 201412/11/2018 tx'd w/ Levaquin Timbo Mckeon DO [address], [place], [address] , [place] [facility] 9 17:19:51 Insomnia 172340256 [facility] 6 12:23:03 Fracture of hand 89955407 Completed 200912/11/2018 Left Timbo Mckeon DO [address], [place], [address] , [place] [facility] 9 17:20:04 Tinnitus 34681837 [facility] 6 12:23:04 Decrease d hearing 599454983 Completed 12/11/2018 Timbo Mckeon DO [address], [place], [address] , [place] [facility] 9 17:19:28 Reduced visual acuity 47780337 Active scotty banda null, [place] - [facility] 6 12:23:04 Sensorin eural hearing loss of bilatera l ears 417515854 Active Asha Bradford [address], [place], [address] , [place] [facility] 6 13:11:25 Menorrha obi 420097363 Active Margy Becker MD [address], [place], [address] , [place] [facility] 7 22:56:04 Blood in urine 25368196 Completed 12/11/2018 Timbo Mckeon DO [address], [place], [address] , [place] [facility] 9 17:19:34 Obesity 817890143 Active 2018 Timbo Mckeon DO [address], [place], [address] , [place] [facility] 9 01:18:28 Pregnanc y 21227746 Completed 201903/16/2020 Aliyahjanet White[place] null, [place] - [facility] 0 12:25:25 Gestatio nal diabetes mellitus class A2 54688277 Active 2019 Aliyahjanet [place] null, [place] - [facility] 0 12:25:22 Gestatio nal diabetes mellitus class A2 10748615 Completed 2019 Aliyahjanet [place] null, [place] - [facility] 0 12:25:22 Depressi ve disorder 51738141 Active 2020 Yaya Casanova DO [address], [place], [address] , [place] [facility] 1 15:54:10 Notes:hx plantar fasciitis; hx [...] Non-Stress Test completed Malka VANEGAS, Cali [address], [place], [address], [facility] 02/25/2020 13:33:54 02/18/20 20 Non-Stress Test completed Cali Ace MD [address], [place], [address], [facility] 02/18/2020 15:49:47 02/11/20 20 Non-Stress Test completed Cali Ace MD [address], [place], [address], [facility] 02/11/2020 15:03:18 01/12/20 20 Non-Stress Test completed Cali Ace MD [address], [place], [address], [place] [facility] 01/12/2020 18:21:04 12/19/19 19 Date of Last Pap Smear completed Timbo Mckeon DO [address], [place], [address], [facility] 12/24/2018 14:45:47 06/30/19 17 Ortho Corticosteroid Injection completed Vy Feliciano [facility] 06/29/2016 12:26:26 06/29/19 17 Cystoscopy (female) completed Chuck VANEGAS, [address], [place], [address], [facility] 06/28/2016 12:41:47 06/14/19 17 Bladder Scan completed Chuck VANEGAS, [address], [place], [address], [facility] 06/14/2016 13:22:58 04/05/20 16 Tympanometry completed Asha Bradford [address], [place], [address], [facility] 04/05/2016 13:11:04 04/05/20 16 Audiogram.old completed Asha Bradford [address], [place], [address], [facility] 04/05/2016 13:11:04 11/21/19 15 Other completed Georgi Moctezuma MD [address], [place], [address], [facility] 01/13/2016 00:18:30 10/21/19 15 Other completed Georgi Moctezuma MD [address], [place], [address], [facility] 01/13/2016 00:18:30 04/22/19 00 [place] Teeth Removed completed Georgi Moctezuma MD [address], [place], [address], [facility] 01/12/2016 22:50:32 Oral surgery procedure completed Dena Argueta [facility] 04/06/2016 12:36:17 Imaging Results None recorded. Procedure Notes None recorded. Medical Equipment None Reported. Allergies Allergen ID Allergen Name Allergen Category Reaction Reaction Severity Criticality Documentation Date Start Date Code Code System Note Provider Name and Address Organization Details Recorded Time 310131 latex environme nt,medica tion hives moderate Not available 01/12/2016 15729 91 RxNorm Georgi Moctezuma MD [address], [place], [address], [facility] 6 22:23:54 158556 acetamino phen / hydrocodo ne medicatio n other moderate Not available 04/05/2016 63776 2 RxNorm facia l numbn ess scotty sepulveda, [facility] 6 12:23:03 249545 Wellbutri n medicatio n Not available Not available Not available 06/18/2016 99652 RxNorm vivid dream s/fri ghten ing ; used w/ post partu m grisele carter Moctezuma MD, Georgi Costa [address], [place], [address], [facility] 7 11:10:40 841264 adhesive tape environme nt,medica tion Not available Not available Not available 03/16/2020 Aliyah sepulveda, [facility] 0 12:21:24 Medications Name Sig Start [...] e 137 mcg (0.1 %) nasal spray [place] 1 spray every day by intranas al [...] Not Available Not Available Not Available FreeStyle [place] Lite kit 03/16 completed Not Available Not [...] Smoking Status Never Smoker 12/11/18 Kathy Guallpa [facility] 12/11/2018 16:59:59 Do You Have An Advance Directive? No I Gave Her The Form For The Living Will And Health Power Of Business Writer, She Does Want To Be Resuscitated. She Does Not Want To Be Maintained On Chronic Life Support If There Is Little Hope Of A Meaningful Recovery. - 12/18/2018 Information not available 12/18/2018 What Is Your Level Of Alcohol Consumption? None [email or web address] Information not available 10/27/2019 Are You Blind [...] COVID-19 While That Case Was Ill? No Information not available 07/30/2019 In The 14 Days Before Symptom Onset, Have You Had Close Contact With A Person Who Is Under Investigation For COVID-19 While That Person Was Ill? No [email or web address] Information not available 07/30/2019 Have You Been To An Area Known To Be High Risk For COVID-19? No [email or web address] Information not available 07/30/2019 What Type Of Diet Are You Following? REGULAR Low Sodium Information not available 01/12/2016 Which Illicit Or Recreational Drugs Have You Used? None Information not available 12/11/2018 Do You Or Have You Ever Used E-cigarettes Or Vape? 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 No 12/11/18 Mh Information not available 04/06/2016 Have You Traveled Outside Of The [place] In The Last 21 Days (3 Weeks)? No Information not available 04/06/2016 Do You Have Any Rastafarian Beliefs That May Impact Your Health Care Decisions? No Does Not Follow Any Orthodoxy Information not available 12/11/2018 Did You Hurt [...] Details LastModified Time Father Myocardial infarction 55 [email or web address] Not available 04/25 18:44:02 Father Hypertensive disorder [email or web address] Not available 2016 18:44:02 Father Hyperlipidem ia [email or web address] Not available 2016 18:44:02 Paternal Aunt Malignant tumor of cervix Not available 2016 18:44:02 Paternal Aunt Dementia [email or web address] Not a vailable 04/25/2016 18:44:02 Mother Pyelonephrit [...] History Condition Response Number of Pregancies Y Depression Y Headaches/Migraines Y Head, Ears, Eyes, Nose, Throat Problems Y Urinary Tract Infections N Obesity Y Kidney Disease N Elevated PSA N Low Testosterone N Asthma Endometriosis N Diabetes N Heart Disease N Enlarged Prostate N Erectile Dysfunction N Cancer N Anxiety Y Urinary Problems Y Prolapse N Reconstructive surgeries N Kidney Stone N Gynecological History Statement/Question Response History of [...] quadrivalent , PF 1 completed Maile sepulveda [facility] 03/15/2021 12:10:26 COVID-19, mRNA, LNP-S, PF, 30 mcg/0.3 mL dose 1 completed Savana sepulveda [facility] 08/30/2020 10:45:30 COVID-19, mRNA, LNP-S, PF, 30 mcg/0.3 mL dose 1 completed Savana sepulveda [facility] 08/30/2020 10:45:45 COVID-19, mRNA, LNP-S, PF, 30 mcg/0.3 mL dose 1 completed Maile sepulveda [facility] 03/15/2021 11:48:03 Influenza, split virus, trivalent, PF 8 cancelled patient objection Not Available [facility] 05/09/2019 02:33:30 Influenza, MDCK, quadrivalent , PF 8 completed Not Available [facility] 05/09/2019 03:23:32 Influenza, MDCK, quadrivalent , PF 9 completed Not Available [facility] 05/09/2019 03:01:50 Influenza, split virus, quadrivalent , PF 0 completed Savana sepulveda [facility] 01/05/2020 16:31:36 Tdap 07/23/201 3 completed Not Available [facility] 03/07/2020 09:20:47 Past Encounters Encounter ID Performer Location Encounter Start Date Encounter Closed Date Diagnosis/Indication Diagnosis SNOMED-CT Code Diagnosis ICD10 Code [id number] Anisha Mcclain [facility] [address] [place] [address] 01/12/2016 10:23:10 01/13/2016 12:09:34 Adult health examination 231361376 Z00.00 Hematology screening test 090430421 Z13.0 Hyperlipid emia screening 434623241 Z13.220 Endocrine/ metabolic screening 594675321 Z13.228 Mixed anxi ety and depressive disorder 643728198 F41.8 Tinnitus 93404179 H93.13 Decreased hearing 596611 001 H91.93 Reduced visual acuity 13 573088 H54.7 Contraception care 60148 5005 Z30.40 [id number] Lv lucas MD, Chandrakant Shipley [facility] [place] POS [address] [place] [address] 04/05/2016 11:57:03 04/05/2016 13:17:18 Tinnitus 03321176 H93.13 Allergic r hinitis caused by pollen 03906520 J30.1 Sensorineu ral hearing loss of bilateral ears 440350724 H90.3 Dizziness 912878822 R42 [id number] Asha Bradford [facility] [place] [address] [facility] [place] [address] 04/05/2016 13:09:55 04/05/2016 13:12:09 Sensorineural hearing loss of bilateral ears 835499747 H90.3 [id number] Eugenio VANEGAS, Margy Valdivia [facility] [place] POS [address] [place] [address],[address] [place] [address] 04/06/2016 12:09:16 04/06/2016 13:47:10 Gynecologic examination 40107116 Z01.419 Screening for malignant neoplasm of cervix 432912843 Z12.4 Menorrhagia 977334813 N9 2.0 History of urinary tract infection 2060284418 107 Z87.440 Surveillan ce of contraception 113365556 Z30.40 [id number] Eugenio VANEGAS, Margy Valdivia [facility] [place] POS [address] [place] [address],[address] [place] [address] 04/25/2016 17:48:13 04/25/2016 19:53:53 Menorrhagia 059312970 N92.0 Blood in urine 58141753 R31.9 [id number] Rhianna VANEGAS, Georgi Costa [facility] [place] [facility] POS [address],[place] [address] 05/08/2016 10:01:31 05/08/2016 12:08:23 Migraine 86036301 G43.909 Mixed anxi ety and depressive disorder 954453107 F41.8 Carpal davonte simon syndrome 67851287 G56.00 Insomnia 892224819 G47.0 0 Hand pain 29423294 M79.6 42 Vitamin D deficiency 347 13463 E55.9 [id number] Chuck VANEGAS, [facility] - UROLOGY [facility] [place] POS [address] [facility] [place] [address] 06/14/2016 12:22:40 06/14/2016 14:22:12 Microscopic hematuria 671929744 R31.21 Renal colic 2017401 N23 [id number] Rhianna VANEGAS, Georgi Costa [facility] POS [address],[place] [address] 06/18/2016 10:33:06 06/18/2016 12:04:21 Mixed anxiety and depressive disorder 398752119 F41.8 [id number] Chuck VANEGAS, [facility] - UROLOGY [facility] [place] POS [address] [place] [address] 06/28/2016 12:09:59 06/28/2016 12:45:15 Blood in urine 58015116 R31.9 [id number] Donnell VANEGAS, Luis Soliz [facility] [place] POS [address] [place] [address] 06/29/2016 11:24:40 07/13/2016 10:46:48 Hand pain 54676518 M79.643 Carpal davonte simon syndrome 27661588 G56.01 G56.02 [id number] Donnell VANEGAS, Luis Soliz [facility] [place] POS [address] [place] [address] 07/13/2016 11:07:42 07/13/2016 13:24:50 Pain in wrist 72909000 M25.531 Hand pain 12286777 M79.6 43 Carpal davonte simon syndrome 76962708 G56.01 G56.02 [id number] Rhianna VANEGAS, Georgi Costa [facility] POS [address] [employer] [facility] [address] 07/16/2016 10:58:41 07/16/2016 11:42:57 Mixed anxiety and depressive disorder 395617541 F41.8 [id number] Donnell VANEGAS, Luis Soliz [facility] [place] POS [address] [place] [address] 08/13/2016 11:24:07 08/13/2016 12:23:07 Hand pain 93771142 M79.641 Pain in wrist 37610947 M 25.531 Carpal davonte simon syndrome 81440167 G56.01 G56.02 [id number] Donnell VANEGAS, Luis Reynaoli [facility] [place] POS [address] [place] [address] 09/20/2016 11:45:56 09/20/2016 14:44:21 Pain in wrist 34575648 M25.531 M25.532 Hand pain 80883092 M79.6 41 Carpal davonte simon syndrome 89200255 G56.01 G56.02 [id number] Chuck VANEGAS, Vibah [facility] [place] POS [address] [facility] [place] [address] 10/04/2016 11:54:33 10/04/2016 12:31:12 Blood in urine 22176706 R31.9 Bladder mu scle dysfunction - overactive 792458494 N32.81 Female str ess incontinence 22998600 N39.3 [id number] Donnell VANEGAS, Luis Soliz [facility] [place] POS [address] [facility] [place] [address] 10/08/2016 09:47:26 10/08/2016 10:46:23 Pain in wrist 07982592 M25.531 M25.532 Hand pain 89291971 M79.6 41 Carpal davonte simon syndrome 35646327 G56.01 G56.02 [id number] Donnell VANEGAS, Luis Soliz [facility] - [facility]OP[facility] CSURGERY [facility] POS [address] [place] [address] 11/09/2016 10:50:45 11/09/2016 12:33:48 Pain in wrist 56320619 M25.531 M25.532 Neck pain 18909417 M54.2 Hand pain 29561689 M79.6 41 Carpal davonte simon syndrome 55940808 G56.01 G56.02 [id number] Rhianna VANEGAS, Georgi Costa [facility] POS [address],[place] [address] 11/21/2016 10:22:19 12/11/2016 16:16:59 Low back pain 688339619 M54.5 Snoring 98225059 R06.83 [id number] Rhianna VANEGAS, Georgi Costa [facility] POS [address],[place] [address] 01/10/2017 16:20:44 01/10/2017 17:19:55 Pain in left knee 3584070064 76769 M25.562 Depressive disorder 3548 9007 F32.89 Fatigue 04470969 R53.83 [id number] Chuck VANEGAS, [facility] - UROLOGY [facility] [place] POS [address] [place] [address] 01/31/2017 11:27:16 01/31/2017 12:47:19 Bladder muscle dysfunction - overactive 982992384 N32.81 Female str ess incontinence 63762095 N39.3 [id number] Tete Brian DO [facility] [place] AM#[address] POS [address] [place] [address] 03/08/2017 11:55:53 03/13/2017 00:11:33 Fatigue 52314686 R53.83 Allergic rhinitis 287289 04 J30.9 Obesity 351718662 E66.9 [id number] Meño [facility] POS [address] [place] [address] 06/12/2017 10:00:03 06/12/2017 10:41:36 Active or passive immunization 492162288 Z23 Fatigue 64847601 R53.83 Allergic rhinitis 376019 04 J30.9 Gastroesop hageal reflux disease 920395829 K21.9 [id number] Meño Brian [facility] POS [address] [place] [address] 08/12/2017 10:54:36 08/12/2017 11:48:10 Obesity 084624293 E66.9 Insomnia 132263444 G47.0 0 Neck pain 35031876 M54.2 Migraine 82840459 G43.90 9 [id number] Meño Brian [facility]ft[facility] POS [address] [place] [address] 02/11/2018 10:03:22 02/11/2018 10:50:04 Administration of influenza vaccine 52293372 Z23 Migraine 15401919 G43.90 9 Insomnia 277943188 G47.0 0 Environmental allergy 42 1981015 T78.49XA [id number] Shade VANEGAS, Nitin [facility] [place] AM#[address] POS [address] [place] [address] 04/02/2018 14:24:14 04/02/2018 15:10:58 Adult health examination 799326736 Z00.00 Migraine 72462871 G43.90 9 [id number] Timbo Mckeon DO#1 POS [address] [facility],[address] [facility] [place] [address] 12/11/2018 16:42:55 12/11/2018 17:56:44 Bladder muscle dysfunction - overactive 448010349 N32.81 Body mass index 30+ - obesity 891272738 Z68.39 Migraine 42139420 G43.90 9 [id number] Timbo Mckeon DO#1 POS [address] [facility],[address] [place] [address] 12/18/2018 09:57:19 12/18/2018 11:37:10 Adult health examination 133699966 Z00.00 Active or passive immunization 017369958 Z23 Body mass index 30+ - obesity 420853295 Z68.38 Hyperhidro sis of axilla 723632149 L74.510 Elevated blood-pressure reading without diagnosis of hypertension 959342984 R03.0 [id number] Malka VANEGAS, Cali Carter [facility] [place] POS [address] [place] [address] 07/30/2019 10:48:16 07/30/2019 12:44:41 test positive 575998315 Z32.01 Mild hyper emesis gravidarum 45513184 O21.0 Amenorrhea 24021103 N91. 2 [id number] Malka VANEGAS, Cali Carter [facility] [place] POS [address] [place] [address] 08/04/2019 11:31:16 08/04/2019 13:34:46 Disorder of menstruation 000883346 N92.6 Routine an tenatal care 101462176 Z34.81 Z3A.08 Venereal d isease screening 822784802 Z11.3 Advanced m aternal age 916508087 O09.899 [id number] Malka VANEGAS, Cali Carter [facility] [place] POS [address] [place] [address] 08/18/2019 11:25:44 08/18/2019 13:21:34 Advanced maternal age 319414274 O09.899 Routine an tenatal care 515202322 Z34.81 Z3A.08 Mild hyper emesis gravidarum 27382581 O21.0 [id number] Malka VANEGAS, Cali [facility] - [facility] [place] POS [address] [place] [address] 09/22/2019 13:57:14 09/22/2019 14:40:34 Multigravida of advanced maternal age 508082789 O09.522 Z3A.15 [id number] Malka VANEGAS, [facility] - [facility] [place] POS [address] [place] [address] 10/20/2019 13:50:29 10/20/2019 15:17:10 Multigravida of advanced maternal age 977056132 O09.523 Z3A.19 [id number] Dickson Langford MD [facility] POS [address] [place] [address] 10/27/2019 10:57:43 10/27/2019 14:41:15 Advanced maternal age 068185073 O09.899 expo sure to alcohol 259783636 O35.4XX9 expo sure to drug 691699175 O35.5XX9 [id number] Malka VANEGAS, [facility] - [facility] [employer] [facility] [place] POS [address] [place] [address] 11/24/2019 14:02:44 11/24/2019 15:47:27 Advanced maternal age 277366328 O09.899 Z3A.24 [id number] Malka VANEGAS, [facility] - [facility] [facility] [place] POS [address] [place] [address] 12/08/2019 13:27:12 12/08/2019 15:22:20 Gestational diabetes mellitus 80015223 O24.410 [id number] [facility] [place] POS [address] [place] [address] 12/17/2019 17:23:54 12/17/2019 17:24:51 [id number] Dickson Langford MD [facility] POS [address] [place] [address] 12/22/2019 08:47:44 12/22/2019 11:38:14 Glucose tolerance test outside reference range [id number] R73.09 Gestationa l diabetes mellitus 82174319 O24.410 [id number] Malka VANEGAS, [facility] - [employer] [facility] POS [address] [place] [address] [id number] 7 12/22/2019 15:50:31 12/23/2019 10:14:48 Gestational diabetes mellitus 39890432 O24.410 Advanced m aternal age 854549546 O09.899 Z3A.24 High risk care 215049380 O09.93 [id number] Malka VANEGAS, Cali [facility] - [employer] [facility] POS [address] [place] [address] [id number] 7 01/05/2020 15:26:25 01/06/2020 12:30:32 Advanced maternal age [id number] O09.899 Z3A.24 Gestationa l diabetes mellitus 66925473 O24.410 High risk care [id number] O09.93 [id number] [facility] [employer] [facility] [place] POS [address] [place] [address] 01/08/2020 14:24:24 01/08/2020 15:19:50 [id number] Malka VANEGAS, [facility] - [employer] [facility] POS [address] [place] [address] [id number] 7 01/12/2020 16:46:10 01/13/2020 11:56:27 Gestational diabetes mellitus 12740812 O24.410 Advanced m aternal age 872386031 O09.899 O09.893 [id number] Dickson Langford MD [facility] POS [address] [place] [address] 5 01/19/2020 14:10:41 01/19/2020 16:23:42 Gestational diabetes mellitus 67296748 O24.410 Gestationa l diabetes mellitus class A2 68153549 O24.414 [id number] Malka VANEGAS, Cali [facility] - [employer] [facility] POS [address] [place] [address] [id number] 7 01/20/2020 12:35:55 01/20/2020 14:26:45 Multigravida of advanced maternal age 707781092 O09.523 Z3A.33 [id number] Rashad VANEGAS, Milly Reyes [facility] POS [address] [place] [address] [id number] 5 01/26/2020 14:26:55 01/26/2020 16:06:59 Gestational diabetes mellitus 48899031 O24.414 [id number] Jimmy VANEGAS, Madi Stevens [facility] - [employer] [facility] POS [address] [place] [address] 01/30/2020 10:58:36 01/30/2020 11:58:25 Routine care 205454145 Z34.83 Gestationa l diabetes mellitus class A2 34103711 O24.414 [id number] Primitivo VANEGAS, Dickson [facility] [employer] [facility] POS [address] [place] [address] [id number] 5 02/02/2020 14:26:03 02/02/2020 17:02:34 Advanced maternal age 650117927 O09.899 Gestationa l diabetes mellitus 67653262 O24.410 [id number] Milly Solorzano MD [facility] [employer] [facility] POS [address] [place] [address] [id number] 5 02/09/2020 14:24:13 02/09/2020 16:17:05 Advanced maternal age 192745533 O09.523 Gestationa l diabetes mellitus class A2 57137579 O24.414 [id number] Malka VANEGAS, Cali Carter [facility] - [employer] POS [address] [place] [address] 7 02/11/2020 12:30:53 02/11/2020 16:21:25 Advanced maternal age 448456336 O09.523 Z3A.36 Venereal d isease screening 358846394 Z11.3 Gestationa l diabetes mellitus 88230042 O24.410 [id number] Dickson Langford MD [facility] [employer] [facility] POS [address] [place] [address] [id number] 5 02/16/2020 14:33:12 02/16/2020 16:13:30 Gestational diabetes mellitus 35218099 O24.410 [id number] Malka VANEGAS, [facility] - [employer] [facility] POS [address] [place] [address] 56004-047 7 02/18/2020 14:57:15 02/18/2020 15:58:43 Routine care 050746981 Z34.81 Z3A.08 Advanced m aternal age 388415925 O09.523 Z3A.36 Gestationa l diabetes mellitus 32595480 O24.410 [id number] Rashad VANEGAS, Milly Reyes [facility] [employer] POS [address] [place] [address] [id number] 5 02/23/2020 14:31:39 02/23/2020 16:18:32 Gestational diabetes mellitus 09337914 O24.414 [id number] Malka VANEGAS, [facility] - [employer] [facility] POS [address] [place] [address] [id number] 7 02/25/2020 12:31:57 02/26/2020 10:45:52 Routine care 833519916 Z34.83 Z3A.38 Advanced m aternal age 778633325 O09.523 Z3A.36 Gestationa l diabetes mellitus 58438437 O24.410 [id number] Primitivo VANEGAS, Dickson [facility] POS [address] [place] [address] 14856-933 5 03/01/2020 14:27:44 03/01/2020 15:58:06 Advanced maternal age 796419295 O09.523 O24.414 [id number] Malka VANEGAS, Cali [facility] - [employer] [facility] POS [address] [place] [address] [id number] 7 03/16/2020 12:11:09 03/18/2020 11:31:10 care 885001143 Z39.0 [id number] Malka VANEGAS, [facility] - [employer] [facility] POS [address] [place] [address] [id number] 7 04/13/2020 10:55:06 04/13/2020 14:58:26 care 446780275 Z39.2 [id number] Malka VANEGAS, [facility] - [employer] [facility] POS [address] [place] [address] [id number] 7 04/27/2020 16:26:42 05/04/2020 15:07:19 depression 60593708 F53.0 [id number] [place] [employer], Sejal [facility] - [facility] POS [address] [place] [address] [id number] 7 05/13/2020 09:46:35 05/13/2020 10:31:08 [id number] [place] [employer], Sejla [facility] - [facility] POS [address] [place] [address] [id number] 7 05/20/2020 09:48:07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
== END 2024-04-06 12:39 | disposition home or self-care (01) ==
LOC: HO.HMGCX 12:38
PROVIDERS: PCP Internal Medicine; Visit Provider Nurse Practitioner Family
DX: N39.46 Mixed incontinence (principal)
CPT/HCPCS: 76770

== ENCOUNTER 2024-04-13 10:22 | Outpatient (REF) | payer OTHER, SELFPAY ==
--- OUTSIDE RECORDS SUMMARY | 2024-04-13 10:26 | XMS_ITS | Continuity of Care Document ---
Author Name [facility] Organization [facility] Care Team Providers Care Tromper Name Role Phone [facility] Unavailable Unavailable Medications Combined list of outpatient [...] CITRON PHARMA L, 500 ea. BOTTLE Active [id number] 4 2023 10 Pharmac y Data Transac tion Service Facilit y Benzonatate ([employer]) 100 CAPSULE in 1 BOTTLE Active [id number] 06/26/19 2 4 2023 60 Pharmac y Data Transac tion Service Facilit y DIAZEPAM (DIAZEPAM), 5MG, TABLET, ORAL, IVAX PHARMACEUT, 100 ea. BOTTLE Active [id number] 4 2023 10 Pharmac y Data Transac tion Service Facilit y DULOXETINE HCL (DULOXETINE HCL), 60 MG, CAPSULE DR, ORAL, BRECKENRIDG E, 90 ea. BOTTLE Active [id number] 4 2023 90 Pharmac y Data Transac tion Service Facilit y DULOXETINE HCL (DULOXETINE HCL), 60 MG, CAPSULE DR, ORAL, BRECKENRIDG E, 90 ea. BOTTLE Active [id number] 4 2023 90 Pharmac y Data Transac tion Service Facilit y LIDOCAINE (lidocaine) , 5 %, ADH. PATCH, TOPICAL, AMNEAL PHARMACE, 30 ea. BOX Active [id number] 4 2023 30 Pharmac y Data Transac tion Service Facilit y LISINOPRIL (lisinopril ), 10 MG, TABLET, ORAL, LUPIN PHARMACEU, 1000 ea. BOTTLE Active [id number] 4 2023 30 Pharmac y Data Transac tion Service Facilit y LISINOPRIL (lisinopril ), 10 MG, TABLET, ORAL, LUPIN PHARMACEU, 1000 ea. BOTTLE Active [id number] 4 2023 30 Pharmac y Data Transac tion Service Facilit y LISINOPRIL (LISINOPRIL ), 5MG, TABLET, ORAL, LUPIN PHARMACEU, 1000 ea. BOTTLE Active [id number] 3 2022 30 Pharmac y Data Transac tion Service Facilit y LISINOPRIL (LISINOPRIL ), 5MG, TABLET, ORAL, LUPIN PHARMACEU, 1000 ea. BOTTLE Active [id number] 4 2023 30 Pharmac y Data Transac tion Service Facilit y LISINOPRIL- HCTZ (LISINOPRIL /HYDROCHLOR OTHIAZIDE), 10-12.5MG, TABLET, ORAL, LUPIN PHARMACEU, 100 ea. BOTTLE Active [id number] 4 2023 30 Pharmac y Data Transac tion Service Facilit y LISINOPRIL- HCTZ (LISINOPRIL /HYDROCHLOR OTHIAZIDE), 10-12.5MG, TABLET, ORAL, LUPIN PHARMACEU, 100 ea. BOTTLE Active [id number] 4 2023 30 Pharmac y Data Transac tion Service Facilit y SULFAMETHOX AZOLE-TRIME THOPRIM (sulfametho xazole/trim ethoprim), 800-160 MG, TABLET, ORAL, RISING PHARM, 100 ea. BOTTLE Active [id number] 4 2023 14 Pharmac y Data Transac tion Service Facilit y Allergies, Adverse Reactions, Alerts Combined list of allergies from Department of Defense and Veterans Affairs facilities. It does not include entries that were removed or entered in error. Substance Category Reaction Severity Reaction type Status Date Reported Comments Source acetaminophe n-hydrocodon e Drug allergy Active One or More [facility] Facilities [employer] ADHESIVES Propensity to adverse reaction (finding) active 0 [facility] Adhesives Allergy to substance Active One or More A Facilities [employer] HYDROCODONE Drug allergy (disorder) active 0 [facility] Latex Drug allergy Active One or More A Facilities [employer] LATEX GLOVE Propensity to adverse reactions to drug (finding) active 0 [facility] VICODIN Propensity to adverse reactions to drug (finding) active 0 [facility] Immunizations Combined list of available immunizations from the Department of Defense and Veterans Affairs facilities. Immunization Series Date Given Administered By Site Reaction Lot Number CVX Code Drug Entry Examiner Status Comments Source COVID-19, mRNA, LNP-S, PF, 30 mcg/0.3 mL dose 2020 [employer] (PFR) Not Given COVID-19, mRNA, LNP-S, PF, 30 mcg/0.3 mL dose [facility] COVID-19, mRNA, LNP-S, PF, 30 mcg/0.3 mL dose 2020 [employer] [place] (PFR) Not Given COVID-19, mRNA, LNP-S, PF, 30 mcg/0.3 mL dose DoD COVID-19, mRNA, LNP-S, PF, 30 mcg/0.3 mL dose 2020 [employer] [place] (PFR) Not Given COVID-19, mRNA, LNP-S, [...] months. 2) Encounters from the Department of [employer] facilities going back up to 280 months. Location Location Details Encounter Type Encounter Number Reason For Visit Attending Provider ADM Date DC Date Status Disposition Source One or More A Facilitie s [employer] History 04/22 One or More A Facilit ies [employer] Ambulator y Pharmacy [facility] [id number] 05/13 Ambulat ory Pharmac y Procedures Combined list of: 1) Procedures from Department of Veterans Affairs facilities going back up to thelast 18 months, not all [place] non-surgical procedures are included; 2) All procedures [...] Plan No data available for this section 04/13/2024 Ambulatory Pharmacy Functional Status Combined list of recent functional and cognitive assessments recorded at [facility] of Defense and [facility] ([facility] Functional [place] Measurement (FIM) Scale: 1 = Total Assistance (Subject = 0% +), 2 = Maximal Assistance (Subject = 25% +), 3 = Moderate Assistance (Subject = 50% +), 4 = Minimal Assistance (Subject = 75% +), 5 = Supervision, 6 = Modified Faulkner (Device), 7 = Complete [place] (Timely, Safely). Assessment Date/Time Source Assessment Type Assessment Skill Assessment Score Assessment Details No data available for this section
--- OUTSIDE RECORDS SUMMARY | 2024-04-13 10:27 | XMS_ITS | Data Portability ---
Author Organization [place] [facility] [place] - Psychiatric - Address [address] [place] [address] Care Team Providers Care Institute Scientist Name Role Phone ROBIN PENALOZANN Primary Care [...] 6-8 weeks. This visit was conducted via SET website [email or web address] using both audio and video during the 2019 COVID-19 pandemic. Patient consented to non face to face service. Patient location: car Provider location: [facility] Start time: 1417 End time: 1424 Participants [...] This visit was conducted via telehealth website [email or web address] using both audio and video during the 2020. Patient consented to non face to face service. Patient location: home Provider location: [facility] Start time: 1424 End time: 1429 Participants [...] This visit was conducted via telehealth website [email or web address] using both audio and video during the 2019. Patient consented to non face to face service. Patient location: home Provider location: [facility] Start time: 1352 End time: 1401 Participants [...] HCl 50 mg tablet 2020 021 [facility], [address], [place], [address], 15:27:21 duloxetine 30 mg capsule,del ayed release 2020 021 [facility], [address], [place], [address], 15:27:17 duloxetine 60 mg capsule,del ayed release 2020 021 [facility], [address], [place], [address], 15:27:17 duloxetine 30 mg capsule,del ayed release 2021 022 [facility], [address], [place], [address], 15:13:01 duloxetine 60 mg capsule,del ayed release 2021 022 [facility], [address], [place], [address], 2 15:12:56 hydroxyzine HCl 50 mg tablet 2021 022 [facility], [address], [place], [address], 15:12:57 Patient TargetsNo targets recorded. Patient InstructionsNo instructions recorded. Reason for Referral None Reported. Problems Name Problem SNOMED Code Status Onset Date Resolution Date Notes Provider Name and Address Organization Details Recorded Time Multiple environm ental allergie s Active scotty sepulveda [facility] 6 12:23:04 Irritabl e bowel syndrome 39265291 Active celiac disease Ab testing Neg 11/03; improved w/ Gluten free diet scotty sepulveda [facility] 6 12:23:04 Gastroes ophageal reflux disease 323366150 Active scotty sepulveda [facility] 6 12:23:04 Mixed anxiety and depressi ve disorder 080333891 Active hx of post depressi on and took lexapro but felt poor response , wellbutr in was very neg side effects (bad vivid dreams of her hurting her family); zoloft was very good response but had to stop when breast feeding bad w/d (didn't wean) scotty sepulveda [facility] 6 12:23:03 Migraine 44796753 [facility] 12:[facility]03 Hiatal hernia 09477409 [facility] 12:23:04 Hemorrho ids 17046856 Completed 12/11/2018 tx'd w/ anusol-H C Timbo Mckeon DO [address], [place], [address] , [facility] 9 17:20:55 Female stress incontin ence 23424649 [facility] 7 18:34:40 Pyelonep hritis 32772689 Completed 201412/11/2018 tx'd w/ Levaquin Timbo Mckeon DO [address], [place], [address] , [place] [facility] 9 17:19:51 Insomnia 454840434 [facility] 12:23:03 Fracture of hand 07099239 Completed 200912/11/2018 Left Timbo Mckeon DO [address], [place], [address] , [place] [facility] 9 17:20:04 Tinnitus 33663523 [facility] 12:23:04 Decrease d hearing 147835801 Completed 12/11/2018 Timbo Mckeon DO [address], [place], [address] , [place] [facility] 9 17:19:28 Reduced visual acuity 24194717 Active scotty banda null, [place] - [facility] 6 12:23:04 Sensorin eural hearing loss of bilatera l ears 104567619 Active Asha Bradford [address], [place], [address] , [place] [facility] 6 13:11:25 Menorrha obi 223190881 Active Margy Becker MD [address], [place], [address] , [place] [facility] 7 22:56:04 Blood in urine 81213506 Completed 12/11/2018 Timbo Mckeon DO [address], [place], [address] , [place] [facility] 9 17:19:34 Obesity 225325396 Active 2018 Timbo Mckeon DO [address], [place], [address] , [place] [facility] 9 01:18:28 Pregnanc y 48057891 Completed 201903/16/2020 Aliyahjanet [place] null, [place] - [facility] 0 12:25:25 Gestatio nal diabetes mellitus class A2 09502652 Active 2019 Aliyahjanet [place] null, [place] - [facility] 0 12:25:22 Gestatio nal diabetes mellitus class A2 28339697 Completed 2019 Aliyahjanet [place] null, [place] - [facility] 0 12:25:22 Depressi ve disorder 41741800 Active 2020 Yaya Casanova DO [address], [place], [address] , [place] [facility] 1 15:54:10 Notes:hx plantar fasciitis; [...] Non-Stress Test completed Malka VANEGAS, Cali Carter [address], [place], [address], [facility] 02/25/2020 13:33:54 02/18/20 20 Non-Stress Test completed Cali Ace MD [address], [place], [address], [facility] 02/18/2020 15:49:47 02/11/20 20 Non-Stress Test completed Cali Ace MD [address], [place], [address], [facility] 02/11/2020 15:03:18 01/12/20 20 Non-Stress Test completed Cali Ace MD [address], [place], [address], [place] [facility] 01/12/2020 18:21:04 12/19/19 19 Date of Last Pap Smear completed Timbo Mckeon DO [address], [place], [address], [facility] 12/24/2018 14:45:47 06/30/19 17 Ortho Corticosteroid Injection completed Vy Feliciano [facility] 06/29/2016 12:26:26 06/29/19 17 Cystoscopy (female) completed Chuck VANEGAS, [address], [place], [address], [facility] 06/28/2016 12:41:47 06/14/19 17 Bladder Scan completed Chuck VANEGAS, [address], [place], [address], [facility] 06/14/2016 13:22:58 04/05/20 16 Tympanometry completed Asha Bradford [address], [place], [address], [facility] 04/05/2016 13:11:04 04/05/20 16 Audiogram.old completed Asha Bradford [address], [place], [address], [facility] 04/05/2016 13:11:04 11/21/19 15 Other completed Georgi Moctezuma MD [address] [facility],[address], [place], [address], [facility] 01/13/2016 00:18:30 10/21/19 15 Other completed Georgi Moctezuma MD [address] [facility],[address], [place], [address], [facility] 01/13/2016 00:18:30 04/22/19 00 [place] Teeth Removed completed Georgi Moctezuma MD [address] [facility],[address], [place], [address], [facility] 01/12/2016 22:50:32 Oral surgery procedure completed Dena Argueta [facility] 04/06/2016 12:36:17 Imaging Results None recorded. Procedure Notes None recorded. Medical Equipment None Reported. Allergies Allergen ID Allergen Name Allergen Category Reaction Reaction Severity Criticality Documentation Date Start Date Code Code System Note Provider Name and Address Organization Details Recorded Time 309512 latex environme nt,medica tion hives moderate Not available 01/12/2016 27319 91 RxNorm Georgi Moctezuma MD [address] [facility],[address], [place], [address], [facility] 6 22:23:54 551140 acetamino phen / hydrocodo ne medicatio n other moderate Not available 04/05/2016 91396 2 RxNorm facia l numbn ess scotty sepulveda, [facility] 6 12:23:03 529541 Wellbutri n medicatio n Not available Not available Not available 06/18/2016 01752 RxNorm vivid dream s/fri ghten ing ; used w/ post partu m grisele carter Moctezuma MD, Georgi Costa [address], [place], [address], [facility] 7 11:10:40 286989 adhesive tape environme nt,medica tion Not available Not available Not available 03/16/2020 Aliyah sepulveda, [facility] 0 12:21:24 Medications Name Sig [...] e 137 mcg (0.1 %) nasal spray [place] 1 spray every day by intranas al [...] Not Available Not Available Not Available FreeStyle Worth Lite kit 03/16 completed Not Available Not [...] Smoking Status Never Smoker 12/11/18 Kathy Guallpa [facility] 12/11/2018 16:59:59 Do You Have An Advance Directive? No I Gave Her The Form For The Living Will And Health Power Of Eight Section Blower, She Does Want To Be Resuscitated. She Does Not Want To Be Maintained On Chronic Life Support If There Is Little Hope Of A Meaningful Recovery. - 12/18/2018 Information not available 12/18/2018 What Is Your Level Of Alcohol Consumption? None [email or web address] Information not available 10/27/2019 Are You Blind [...] COVID-19 While That Case Was Ill? No [email or web address] Information not available 07/30/2019 In The 14 Days Before Symptom Onset, Have You Had Close Contact With A Person Who Is Under Investigation For COVID-19 While That Person Was Ill? No [email or web address] Information not available 07/30/2019 Have You Been To An Area Known To Be High Risk For COVID-19? No [email or web address] Information not available 07/30/2019 What Type Of Diet Are You Following? REGULAR Low Sodium Information not available 01/12/2016 Which Illicit Or Recreational Drugs Have You Used? None Information not available 12/11/2018 Do You Or Have You Ever Used E-cigarettes Or Vape? 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 No 12/11/18 Mh Information not available 04/06/2016 Have You Traveled Outside Of The [place] In The Last 21 Days (3 Weeks)? No Information not available 04/06/2016 Do You Have Any Methodist Beliefs That May Impact Your Health Care Decisions? No Does Not Follow Any Roman Catholic Information not available 12/11/2018 Did You Hurt [...] Details LastModified Time Father Myocardial infarction 55 [email or web address] Not available 04/25 18:44:02 Father Hypertensive disorder [email or web address] Not available 2016 18:44:02 Father Hyperlipidem ia [email or web address] Not available 2016 18:44:02 Paternal Aunt Malignant tumor of cervix [email or web address] Not available 2016 18:44:02 Paternal Aunt Dementia [email or web address] Not a vailable 04/25/2016 18:44:02 Mother Pyelonephrit is [email or web address] Not available 2018 17:32:33 Mother Low blood pressure [email or web address] Not available 2018 17:32:50 Brother Obesity Lcua k [email or web address] Not available 12/11/2018 17:33:30 Brother [...] hypertension (sister ) Medical History Condition Response Urinary Tract Infections N Number of Pregancies Y Diabetes N Obesity Y Low Testosterone N Anxiety Y Enlarged Prostate N Erectile Dysfunction N Cancer N Depression Y Elevated PSA N Asthma Reconstructive surgeries N Endometriosis N Urinary Problems Y Kidney Stone N Heart Disease N Headaches/Migraines Y Prolapse N Head, Ears, Eyes, Nose, Throat Problems Y Kidney Disease N Gynecological History Statement/Question Response [...] quadrivalent , PF 1 completed Maile sepulveda [facility] 03/15/2021 12:10:26 COVID-19, mRNA, LNP-S, PF, 30 mcg/0.3 mL dose 1 completed Savana sepulveda [facility] 08/30/2020 10:45:30 COVID-19, mRNA, LNP-S, PF, 30 mcg/0.3 mL dose 1 completed Savana sepulveda [facility] 08/30/2020 10:45:45 COVID-19, mRNA, LNP-S, PF, 30 mcg/0.3 mL dose 1 completed Maile sepulveda [facility] 03/15/2021 11:48:03 Influenza, split virus, trivalent, PF 8 cancelled patient objection Not Available [facility] 05/09/2019 02:33:30 Influenza, MDCK, quadrivalent , PF 8 completed Not Available [facility] 05/09/2019 03:23:32 Influenza, MDCK, quadrivalent , PF 9 completed Not Available [facility] 05/09/2019 03:01:50 Influenza, split virus, quadrivalent , PF 0 completed Savana sepulveda [facility] 01/05/2020 16:31:36 Tdap 07/23/201 3 completed Not Available [facility] 03/07/2020 09:20:47 Past Encounters Encounter ID Performer Location Encounter Start Date Encounter Closed Date Diagnosis/Indication Diagnosis SNOMED-CT Code Diagnosis ICD10 Code [id number] Anisha Mcclain [facility] [address] [place] [address] 01/12/2016 10:23:10 01/13/2016 12:09:34 Adult health examination 717620959 Z00.00 Hematology screening test 248716875 Z13.0 Hyperlipid emia screening 907339568 Z13.220 Endocrine/ metabolic screening 735448648 Z13.228 Mixed anxi ety and depressive disorder 154732605 F41.8 Tinnitus 80292528 H93.13 Decreased hearing 486181 001 H91.93 Reduced visual acuity 13 694676 H54.7 Contraception care 75445 5005 Z30.40 [id number] Lv lucas MD, Chandrakant Shipley [facility] POS [address] [facility] [place] [address] 04/05/2016 11:57:03 04/05/2016 13:17:18 Tinnitus 30793081 H93.13 Allergic r hinitis caused by pollen 19628621 J30.1 Sensorineu ral hearing loss of bilateral ears 434394387 H90.3 Dizziness 487334384 R42 [id number] Asha Bradford [facility] [address] [facility] [place] [address] 04/05/2016 13:09:55 04/05/2016 13:12:09 Sensorineural hearing loss of bilateral ears 949218753 H90.3 [id number] Eugenio VANEGAS, Margy Valdivia [facility] - FIELD ATTENDANT [place] POS [address] [place] [address],[address] [place] [address] 04/06/2016 12:09:16 04/06/2016 13:47:10 Gynecologic examination 55136257 Z01.419 Screening for malignant neoplasm of cervix 266761867 Z12.4 Menorrhagia 576939281 N9 2.0 History of urinary tract infection 3082703930 107 Z87.440 Surveillan ce of contraception 419780917 Z30.40 [id number] Eugenio VANEGAS, Margy Valdivia [facility] - [facility] [place] POS [address] [place] [address],[address] [place] [address] 04/25/2016 17:48:13 04/25/2016 19:53:53 Menorrhagia 305064241 N92.0 Blood in urine 43016712 R31.9 [id number] Rhianna VANEGAS, Georgi Costa [facility] POS [address],[place] [address] 05/08/2016 10:01:31 05/08/2016 12:08:23 Migraine 67223721 G43.909 Mixed anxi ety and depressive disorder 362915427 F41.8 Carpal davonte simon syndrome 80068936 G56.00 Insomnia 253892680 G47.0 0 Hand pain 47366482 M79.6 42 Vitamin D deficiency 347 14473 E55.9 [id number] Chuck VANEGAS, [facility] - UROLOGY [facility] [place] POS [address] [facility] [place] [address] 06/14/2016 12:22:40 06/14/2016 14:22:12 Microscopic hematuria 874165509 R31.21 Renal colic 6615852 N23 [id number] Rhianna VANEGAS, Georgi Costa [facility] POS [address],[place] [address] 06/18/2016 10:33:06 06/18/2016 12:04:21 Mixed anxiety and depressive disorder 819336831 F41.8 [id number] Chuck VANEGAS, [facility] - UROLOGY [facility] [place] POS [address] [place] [address] 06/28/2016 12:09:59 06/28/2016 12:45:15 Blood in urine 98933675 R31.9 [id number] Donnell VANEGAS, Luis Soliz [facility] - ORTHOPEDI CSURGERY [facility] [place] POS [address] [place] [address] 06/29/2016 11:24:40 07/13/2016 10:46:48 Hand pain 23082916 M79.643 Carpal davonte simon syndrome 67164367 G56.01 G56.02 [id number] Donnell VANEGAS, Luis Soliz [facility] - [facility] POS [address] [place] [address] 07/13/2016 11:07:42 07/13/2016 13:24:50 Pain in wrist 45454023 M25.531 Hand pain 78406079 M79.6 43 Carpal davonte simon syndrome 96036829 G56.01 G56.02 [id number] Rhianna VANEGAS, Georgi Costa [facility] POS [address] [facility] [address] 07/16/2016 10:58:41 07/16/2016 11:42:57 Mixed anxiety and depressive disorder 924791197 F41.8 [id number] Donnell VANEGAS, Luis Soliz [facility] ORTH[facility] CSUR[facility] [place] [address] [place] [address] 08/13/2016 11:24:07 08/13/2016 12:23:07 Hand pain 38677539 M79.641 Pain in wrist 78443712 M 25.531 Carpal davonte simon syndrome 00100171 G56.01 G56.02 [id number] Donnell VANEGAS, Luis Reynaoli [facility] - [facility] CS[facility] [place] POS [address] [place] [address] 09/20/2016 11:45:56 09/20/2016 14:44:21 Pain in wrist 11125916 M25.531 M25.532 Hand pain 79975559 M79.6 41 Carpal davonte simon syndrome 18343444 G56.01 G56.02 [id number] Chuck VANEGAS, [facility] [place] POS [address] [facility] [place] [address] 10/04/2016 11:54:33 10/04/2016 12:31:12 Blood in urine 42730370 R31.9 Bladder mu scle dysfunction - overactive 492318839 N32.81 Female str ess incontinence 89966794 N39.3 [id number] Donnell VANEGAS, Luis Soliz [facility] - [facility] CSUR[facility] [place] [address] [facility] [place] [place] [address] 10/08/2016 09:47:26 10/08/2016 10:46:23 Pain in wrist 49698983 M25.531 M25.532 Hand pain 28481623 M79.6 41 Carpal davonte simon syndrome 42929962 G56.01 G56.02 [id number] Donnell VANEGAS, Luis Soliz [facility] - [facility]I CS[facility] POS [address] [place] [address] 11/09/2016 10:50:45 11/09/2016 12:33:48 Pain in wrist 34678197 M25.531 M25.532 Neck pain 93493590 M54.2 Hand pain 94402524 M79.6 41 Carpal davonte simon syndrome 45653925 G56.01 G56.02 [id number] Rhianna VANEGAS, Georgi Costa [facility] POS [address],[place] [address] 11/21/2016 10:22:19 12/11/2016 16:16:59 Low back pain 141633733 M54.5 Snoring 79960625 R06.83 [id number] Rhianna VANEGAS, Georgi Costa [facility] POS [address],[place] [address] 01/10/2017 16:20:44 01/10/2017 17:19:55 Pain in left knee 3620866952 78821 M25.562 Depressive disorder 3548 9007 F32.89 Fatigue 78391166 R53.83 [id number] Chuck VANEGAS, [facility] - UROLOGY [facility] [place] POS [address] [place] [address] 01/31/2017 11:27:16 01/31/2017 12:47:19 Bladder muscle dysfunction - overactive 325807939 N32.81 Female str ess incontinence 85509041 N39.3 [id number] Tete Brian DO [facility] [place] AM#[address] POS [address] [place] [address] 03/08/2017 11:55:53 03/13/2017 00:11:33 Fatigue 66429440 R53.83 Allergic rhinitis 681878 04 J30.9 Obesity 550505520 E66.9 [id number] Meño Brian DOfta [facility] POS [address] [place] [address] 06/12/2017 10:00:03 06/12/2017 10:41:36 Active or passive immunization 273978761 Z23 Fatigue 76361340 R53.83 Allergic rhinitis 150061 04 J30.9 Gastroesop hageal reflux disease 578628022 K21.9 [id number] Meño Brian DOfta [facility] POS [address] [place] [address] 08/12/2017 10:54:36 08/12/2017 11:48:10 Obesity 565297835 E66.9 Insomnia 372193925 G47.0 0 Neck pain 58303528 M54.2 Migraine 52267000 G43.90 9 [id number] Meño Brian DOfta [facility] AM[facility] POS [address] [place] [address] 02/11/2018 10:03:22 02/11/2018 10:50:04 Administration of influenza vaccine 20918277 Z23 Migraine 80500154 G43.90 9 Insomnia 297170675 G47.0 0 Environmental allergy 42 3512958 T78.49XA [id number] Shade VANEGAS, Nitin [facility] AM#[address] POS [address] [place] [address] 04/02/2018 14:24:14 04/02/2018 15:10:58 Adult health examination 938171011 Z00.00 Migraine 50794003 G43.90 9 [id number] Timbo Mckeon DO#1 POS [address] [facility] [facility] [place] [address] 12/11/2018 16:42:55 12/11/2018 17:56:44 Bladder muscle dysfunction - overactive 421046135 N32.81 Body mass index 30+ - obesity 909663848 Z68.39 Migraine 90482548 G43.90 9 [id number] Timbo Mckeon DO#1 POS [address] [facility],[address] [place] [address] 12/18/2018 09:57:19 12/18/2018 11:37:10 Adult health examination 776123414 Z00.00 Active or passive immunization 447409452 Z23 Body mass index 30+ - obesity 407420056 Z68.38 Hyperhidro sis of axilla 937784312 L74.510 Elevated blood-pressure reading without diagnosis of hypertension 312977447 R03.0 [id number] Malka VANEGAS, Cali Carter [facility] - FIELD ATTENDANT [place] POS [address] [place] [address] 07/30/2019 10:48:16 07/30/2019 12:44:41 test positive 373418694 Z32.01 Mild hyper emesis gravidarum 65646484 O21.0 Amenorrhea 16236496 N91. 2 [id number] Mlaka VANEGAS, Cali Carter [facility] - FIELD ATTEND[facility] [place] POS [address] [place] [address] 08/04/2019 11:31:16 08/04/2019 13:34:46 Disorder of menstruation 371098604 N92.6 Routine an tenatal care 409026407 Z34.81 Z3A.08 Venereal d isease screening 710791525 Z11.3 Advanced m aternal age 863813514 O09.899 [id number] Malka VANEGAS, Cali Carter [facility] - FIELD ATTEND[facility] [place] POS [address] [place] [address] 08/18/2019 11:25:44 08/18/2019 13:21:34 Advanced maternal age 806139256 O09.899 Routine an tenatal care 876248187 Z34.81 Z3A.08 Mild hyper emesis gravidarum 29644666 O21.0 [id number] Malka VANEGAS, Cali [facility] - FIELD ATTENDANT [place] POS [address] [place] [address] 09/22/2019 13:57:14 09/22/2019 14:40:34 Multigravida of advanced maternal age 694076393 O09.522 Z3A.15 [id number] Malka VANEGAS, [facility] - FIELD ATTENDANT [place] POS [address] [place] [address] 10/20/2019 13:50:29 10/20/2019 15:17:10 Multigravida of advanced maternal age 022686939 O09.523 Z3A.19 [id number] Dickson Langford MD [facility] POS [address] [place] [address] 10/27/2019 10:57:43 10/27/2019 14:41:15 Advanced maternal age 869964894 O09.899 expo sure to alcohol 714652336 O35.4XX9 expo sure to drug 076039361 O35.5XX9 [id number] Malka VANEGAS, [facility] - FIELD ATTENDANT [place] POS [address] [place] [address] 11/24/2019 14:02:44 11/24/2019 15:47:27 Advanced maternal age 843987374 O09.899 Z3A.24 [id number] Malka VANEGAS, [facility] - FIELD ATTENDANT [place] POS [address] [place] [address] 12/08/2019 13:27:12 12/08/2019 15:22:20 Gestational diabetes mellitus 07245852 O24.410 [id number] [facility] [place] [address] [place] [address] 12/17/2019 17:23:54 12/17/2019 17:24:51 [id number] Dickson Langford MD [facility] POS [address] [place] [address] 12/22/2019 08:47:44 12/22/2019 11:38:14 Glucose tolerance test outside reference range 262943504 R73.09 Gestationa l diabetes mellitus 96895838 O24.410 [id number] Malka VANEGAS, [facility] - FIELD ATTENDANT [place] POS [address] [place] [address] [id number] 7 12/22/2019 15:50:31 12/23/2019 10:14:48 Gestational diabetes mellitus [id number] O24.410 Advanced m aternal age 837063122 O09.899 Z3A.24 High risk care 269545848 O09.93 [id number] Malka VANEGAS, Cali [facility] - FIELD ATTENDANT [place] POS [address] [place] [address] [id number] 7 01/05/2020 15:26:25 01/06/2020 12:30:32 Advanced maternal age 831390226 O09.899 Z3A.24 Gestationa l diabetes mellitus 45208798 O24.410 High risk care 237924321 O09.93 [id number] [facility] [place] [place] POS [address] [place] [address] 01/08/2020 14:24:24 01/08/2020 15:19:50 [id number] Malka VANEGAS, [facility] - FIELD ATTENDANT [place] POS [address] [place] [address] [id number] 7 01/12/2020 16:46:10 01/13/2020 11:56:27 Gestational diabetes mellitus 09519190 O24.410 Advanced m aternal age 631915954 O09.899 O09.893 [id number] Dickson Langford MD [facility] [employer] [facility] POS [address] [place] [address] 5 01/19/2020 14:10:41 01/19/2020 16:23:42 Gestational diabetes mellitus 09225675 O24.410 Gestationa l diabetes mellitus class A2 90479263 O24.414 [id number] Malka VANEGAS, [facility] - FIELD ATTENDANT [place] POS [address] [place] [address] [id number] 7 01/20/2020 12:35:55 01/20/2020 14:26:45 Multigravida of advanced maternal age 283862917 O09.523 Z3A.33 [id number] Rashad VANEGAS, Milly Reyes [facility] [employer] COUNTS INCLUDE 234 BEDS AT THE [facility] POS [address] [place] [address] [id number] 5 01/26/2020 14:26:55 01/26/2020 16:06:59 Gestational diabetes mellitus 66466554 O24.414 [id number] Jimmy VANEGAS, Madi Stevens [facility] - [facility]ELD ATTEND[facility] [place] POS [address] [place] [address] 7 01/30/2020 10:58:36 01/30/2020 11:58:25 Routine care 071463604 Z34.83 Gestationa l diabetes mellitus class A2 62113077 O24.414 [id number] Primitivo VANEGAS, Dickson [facility] [employer] POS [address] [place] [address] [id number] 5 02/02/2020 14:26:03 02/02/2020 17:02:34 Advanced maternal age 510532172 O09.899 Gestationa l diabetes mellitus 83962135 O24.410 [id number] Milly Solorzano MD [facility] [employer] POS [address] [place] [address] [id number] 5 02/09/2020 14:24:13 02/09/2020 16:17:05 Advanced maternal age 085201606 O09.523 Gestationa l diabetes mellitus class A2 75709271 O24.414 [id number] Malka VANEGAS, Cali Carter [facility] - [facility]ELD ATT[facility] [place] POS [address] [place] [address] 7 02/11/2020 12:30:53 02/11/2020 16:21:25 Advanced maternal age 291442690 O09.523 Z3A.36 Venereal d isease screening 252563091 Z11.3 Gestationa l diabetes mellitus 88728396 O24.410 [id number] Dickson Langford MD [facility] [employer] [facility] POS [address] [place] [address] [id number] 5 02/16/2020 14:33:12 02/16/2020 16:13:30 Gestational diabetes mellitus 28337366 O24.410 [id number] Malka VANEGAS, [facility] - FIELD ATTENDANT [place] POS [address] [place] [address] [id number] 7 02/18/2020 14:57:15 02/18/2020 15:58:43 Routine care 074639682 Z34.81 Z3A.08 Advanced m aternal age 389320032 O09.523 Z3A.36 Gestationa l diabetes mellitus 87710721 O24.410 [id number] Rashad VANEGAS, Milly Reyes [facility] [employer] [facility] POS [address] [place] [address] [id number] 5 02/23/2020 14:31:39 02/23/2020 16:18:32 Gestational diabetes mellitus 87066885 O24.414 [id number] Malka VANEGAS, [facility] - FIELD ATTENDANT [place] POS [address] [place] [address] [id number] 7 02/25/2020 12:31:57 02/26/2020 10:45:52 Routine care 904490188 Z34.83 Z3A.38 Advanced m aternal age 648498908 O09.523 Z3A.36 Gestationa l diabetes mellitus 99351016 O24.410 [id number] Primitivo VANEGAS, Dickson [facility] POS [address] [place] [address] [id number] 5 03/01/2020 14:27:44 03/01/2020 15:58:06 Advanced maternal age 120488761 O09.523 O24.414 [id number] Malka VANEGAS, [facility]i [facility] - FIELD ATTENDANT [place] POS [address] [place] [address] [id number] 7 03/16/2020 12:11:09 03/18/2020 11:31:10 care 548351549 Z39.0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
== END 2024-04-13 10:23 | disposition home or self-care (01) ==
LOC: HO.MAMMO 10:22
PROVIDERS: PCP Internal Medicine; Visit Provider Internal Medicine
DX: Z12.31 Encounter for screening mammogram for malignant neoplasm of breast (principal)
CPT/HCPCS: 77063; 77067

== ENCOUNTER → 2024-04-13 10:30 | Outpatient (BNV) | payer OTHER, SELFPAY | PROVIDERS: PCP Internal Medicine; Visit Provider Internal Medicine | DX: Z12.31 Encounter for screening mammogram for malignant neoplasm of breast (principal) | CPT/HCPCS: 77063; 77067 ==

== ENCOUNTER 2024-04-20 10:21 | Outpatient (AMB) | payer OTHER, SELFPAY ==
--- OUTSIDE RECORDS SUMMARY | 2024-04-20 10:25 | XMS_ITS | Continuity of Care Document ---
Author Name [facility] Organization [facility] Care Team Providers Care Lidar Technician Name Role Phone [facility] Unavailable Unavailable Medications Combined list of outpatient [...] CITRON PHARMA L, 500 ea. BOTTLE Active [id number] 4 2023 10 Pharmac y Data Transac tion Service Facilit y Benzonatate ([employer]) 100 CAPSULE in 1 BOTTLE Active [id number] 06/26/19 2 4 2023 60 Pharmac y Data Transac tion Service Facilit y DIAZEPAM (DIAZEPAM), 5MG, TABLET, ORAL, IVAX PHARMACEUT, 100 ea. BOTTLE Active [id number] 4 2023 10 Pharmac y Data Transac tion Service Facilit y DULOXETINE HCL (DULOXETINE HCL), 60 MG, CAPSULE DR, ORAL, BRECKENRIDG E, 90 ea. BOTTLE Active [id number] 4 2023 90 Pharmac y Data Transac tion Service Facilit y DULOXETINE HCL (DULOXETINE HCL), 60 MG, CAPSULE DR, ORAL, BRECKENRIDG E, 90 ea. BOTTLE Active [id number] 4 2023 90 Pharmac y Data Transac tion Service Facilit y LIDOCAINE (lidocaine) , 5 %, ADH. PATCH, TOPICAL, AMNEAL PHARMACE, 30 ea. BOX Active [id number] 4 2023 30 Pharmac y Data Transac tion Service Facilit y LISINOPRIL (lisinopril ), 10 MG, TABLET, ORAL, LUPIN PHARMACEU, 1000 ea. BOTTLE Active [id number] 4 2023 30 Pharmac y Data Transac tion Service Facilit y LISINOPRIL (lisinopril ), 10 MG, TABLET, ORAL, LUPIN PHARMACEU, 1000 ea. BOTTLE Active [id number] 4 2023 30 Pharmac y Data Transac tion Service Facilit y LISINOPRIL (LISINOPRIL ), 5MG, TABLET, ORAL, LUPIN PHARMACEU, 1000 ea. BOTTLE Active [id number] 3 2022 30 Pharmac y Data Transac tion Service Facilit y LISINOPRIL (LISINOPRIL ), 5MG, TABLET, ORAL, LUPIN PHARMACEU, 1000 ea. BOTTLE Active [id number] 4 2023 30 Pharmac y Data Transac tion Service Facilit y LISINOPRIL- HCTZ (LISINOPRIL /HYDROCHLOR OTHIAZIDE), 10-12.5MG, TABLET, ORAL, LUPIN PHARMACEU, 100 ea. BOTTLE Active [id number] 4 2023 30 Pharmac y Data Transac tion Service Facilit y LISINOPRIL- HCTZ (LISINOPRIL /HYDROCHLOR OTHIAZIDE), 10-12.5MG, TABLET, ORAL, LUPIN PHARMACEU, 100 ea. BOTTLE Active [id number] 4 2023 30 Pharmac y Data Transac tion Service Facilit y SULFAMETHOX AZOLE-TRIME THOPRIM (sulfametho xazole/trim ethoprim), 800-160 MG, TABLET, ORAL, RISING PHARM, 100 ea. BOTTLE Active [id number] 4 2023 14 Pharmac y Data Transac tion Service Facilit y Allergies, Adverse Reactions, Alerts Combined list of allergies from Department of Defense and Veterans Affairs facilities. It does not include entries that were removed or entered in error. Substance Category Reaction Severity Reaction type Status Date Reported Comments Source acetaminophe n-hydrocodon e Drug allergy Active One or More [facility] Facilities GENERAL LABORER ADHESIVES Propensity to adverse reaction (finding) active 0 [facility] Adhesives Allergy to substance Active One or More A Facilities GENERAL LABORER HYDROCODONE Drug allergy (disorder) active 0 [facility] Latex Drug allergy Active One or More A Facilities GENERAL LABORER LATEX GLOVE Propensity to adverse reactions to drug (finding) active 0 [facility] VICODIN Propensity to adverse reactions to drug (finding) active 0 [facility] Immunizations Combined list of available immunizations from the Department of Defense and Veterans Affairs facilities. Immunization Series Date Given Administered By Site Reaction Lot Number CVX Code Drug Digital Media Manager Status Comments Source COVID-19, mRNA, LNP-S, PF, 30 mcg/0.3 mL dose [place] (PFR[place] Not Given COVID-19, mRNA, LNP-S, PF, 30 mcg/0.3 mL dose DoD COVID-19, mRNA, LNP-S, PF, 30 mcg/0.3 mL dose 2020 [place] [place] (PFR) Not Given COVID-19, mRNA, LNP-S, PF, 30 mcg/0.3 mL dose DoD COVID-19, mRNA, LNP-S, PF, 30 mcg/0.3 mL dose 2020 [place] [place] (PFR) Not Given COVID-19, mRNA, LNP-S, [...] months. 2) Encounters from the Department of [employer] facilities going back up to 280 months. Location Location Details Encounter Type Encounter Number Reason For Visit Attending Provider ADM Date DC Date Status Disposition Source One or More A Facilitie s GENERAL LABORER History 04/22 One or More A Facilit ies GENERAL LABORER Ambulator y Pharmacy [facility] [id number] 05/13 Ambulat ory Pharmac y Procedures Combined list of: 1) Procedures from Department of Veterans Affairs facilities going back up to thelast 18 months, not all [place] non-surgical procedures are included; 2) All procedures [...] Plan No data available for this section 04/20/2024 Ambulatory Pharmacy Functional Status Combined list of recent functional and cognitive assessments recorded at [facility] of Defense and Veterans Affairs (VA).VA Functional [place] Measurement (FIM) Scale: 1 = Total Assistance (Subject = 0% +), 2 = Maximal Assistance (Subject = 25% +), 3 = Moderate Assistance (Subject = 50% +), 4 = Minimal Assistance (Subject = 75% +), 5 = Supervision, 6 = Modified [place] (Device), 7 = Complete [place] (Timely, Safely). Assessment Date/Time Source Assessment Type Assessment Skill Assessment Score Assessment Details No data available for this section
--- NOTE | 2024-04-20 10:36 | A.OFFVIS_ITS ---
Intake Visit Reasons: cysto/US (pending) Intake Note: Patient is Present for Cystoscopy Urology Med: Myrbetriq Antibiotic Allergy:None Blood Thinner: None States she still have urgency/frequency has been on Myrbetriq for a month URO- G Disposable Cystoscope lot: [id number] exp: 07/31/2026 Allergies latex Adverse Reaction (Mild, Verified 04/20/24 10:57) hives Medication List - Last Reconciled 04/20/24 by Ioana Maldonado MD azelastine 1 spray intranasal BID PRN cholecalciferol (vitamin D3) 25 mcg PO DAILY CPAP (CPAP Machine/Device) As directed duloxetine 120 mg (2 x 60 mg) PO DAILY hydroxyzine HCl 25 mg PO BEDTIME PRN levonorgestrel (Mirena) intrauterine lidocaine 5% 1 patch topical DAILY lisinopril-hydrochlorothiazide 10-12.5 mg 1 tab PO DAILY loratadine (Claritin) 10 mg PO DAILY magnesium oxide 400 mg PO DAILY 30 days mirabegron ER (Myrbetriq) 50 mg PO DAILY HPI Comments Details: 04/20/24-- Here for office cystoscopy. She was initially evaluated by the nurse practitioner on 02/25/2024 for microscopic hematuria. Urine was sent for cytology which came back negative. She was started on Myrbetriq 25 mg for lower urinary tract symptoms of urgency. Renal ultrasound was ordered results are pending. She states that she is still having some frequency even with taking the Myrbetriq 25 mg. I have discussed that I want her to take 2 of the Myrbetriq and I have sent a prescription for 50 mg. I have discussed that cystoscopy findings no suspicious lesions there was some bladder wall thickening. Cystoscopy findings: Mild erythema-nonspecific, mild to moderate trabeculations, no suspicious bladder lesions visualized. Review of chart: 02/25/24--Alice is a pleasant 43-year-old female patient of Dr. Serrano. She has a past medical history of hypertension, allergies, vitamin-D deficiency, mixed lipidemia, obesity, anxiety, and depression. She presents to the office today as a new patient for microscopic hematuria. With the patient today she reports a longstanding history of microscopic hematuria and has follow-up with 3 urologist in the past as her is in the . She denies any previous microscopic hematuria workup. She denies any previous history of workplace chemical exposure or nicotine dependence however she does report a 20 year history of secondhand smoke. She also discusses noting worsening stress/urge incontinence. We discussed at length potential causes of mixed urinary incontinence as well as microscopic hematuria. In office urinalysis results reviewed with the patient today 2+ microscopic hematuria. She denies dysuria, foul smelling urine, changes to urinary stream, flank pain, fever, and or chills. She reports previously being on Detrol and felt this was helpful however stopped as she became and never restarted the medication. We discussed further workup to include retroperitoneal ultrasound as well as in office cystoscopy given recurrent/persistent microscopic hematuria. She does have a previous history of 3 vaginal deliveries. She otherwise offers no other issues or concerns at this time. [facility] Medical History Hypertriglyceridemia Positive Tinel's sign Positive Phalen maneuver Cervicalgia HTN (hypertension) Decreased hearing of both ears Environmental and seasonal allergies Tinnitus of both ears Knee pain Excessive daytime sleepiness Loud snoring Vitamin D deficiency Impaired fasting glucose Mixed dyslipidemia Morbid obesity Hiatal hernia with gastroesophageal reflux Family history of premature CAD Annual visit for general adult medical examination with abnormal findings Anxiety and depression Surgical History H/O endoscopy H/O wisdom tooth extraction Family History Father Substance use disorder Mental health disorder Alcoholism Myocardial infarction acute, Onset Age: 55 Depression Maternal Uncle Testicular cancer Social History Household Members: Spouse and Children Housing: House Alcohol intake: current Alcohol intake frequency: holidays/special occasions only Patient Tobacco Use Status: Never used Tobacco e-Cigarette/Vaping Use: Never Used Current occupational status: unemployed and other Sexual orientation: Straight/Heterosexual Gender identity: Female Cognitive needs: No Hearing needs: No Vision needs: Yes Review of Systems Const All systems reviewed & are unremarkable except as noted in HPI and below Reports no additional complaints Eyes Reports no additional complaints ENT Reports no additional complaints Card Reports no additional complaints Resp Reports no additional complaints GI Reports no additional complaints Reports as per HPI Musc Reports no additional complaints Skin/Breast Reports system reviewed and no additional complaints, except as documented Neuro Reports no additional complaints Psych Reports no additional complaints Endo Reports no additional complaints Ricardo/Lymph Reports no additional complaints Aller/Immun Reports no additional complaints Office Procedures Cystoscopy Consent Discussed risk and benefit or proposed procedure with the patient. Information consent for procedure given to the patient. Discussed technical aspects, risks, benefits and alternatives in full. Addressed all of the patient's questions and concerns regarding the procedure. The patient demonstrated knowledge and understanding. They wish to proceed with this procedure. Preparation The patient was prepped in the usual manner. A mapping supervisor was present and in the room. Genitalia was prepped with betadine solution in a sterile manner. Lidocaine Jelly 2% was placed into the urethra and 16Fr flexible Olympus cystoscope was inserted into the meatus after adequate lubrication. Procedure Time out per protocol performed. Bladder Inspection Bladder Inspection: The bladder was inspected in its entirety with utilization retroflexion displaying: Tumor(s): no suspicious bladder lesions visualized Trabeculation: Mild to Moderate Mucosal Erthema: Mild Orifices: normal shape and position Urethra: normal Cystoscopy findings: Mild erythema-nonspecific, mild to moderate trabeculations, no suspicious bladder lesions visualized [id number] DISPOSABLE SCOPE URO-G FLEXIBLE SCOPE Procedure code (CPT) selection complete Office Meds lidocaine HCl 2 % mucosal jelly in applicator Performing Provider: Ioana Maldonado MD [facility] Administered by: SRINIVASA Montesinos on 04/20/24 11:09 Dose Route Admin Location Dispensed Lot Number Expiration Date ND Binder And Box Builder 10 mL intra-urethral 10 mL naproxen 500 mg tablet Performing Provider: Ioana Maldonado MD Performing [facility] Administered by: SRINIVASA Montesinos on 04/20/24 11:09 Dose Route Admin Location Dispensed Lot Number Expiration Date NDC B[employer] Box Builder 500 mg PO 1 tab ciprofloxacin HCl 500 mg tablet Performing Provider: Ioana Maldonado MD Performing [facility] Administered by: SRINIVASA Montesinos on 04/20/24 11:09 Dose Route Admin Location Dispensed Lot Number Expiration Date NDC Binder [employer] Box Builder 500 mg PO 1 tab Results AMB Urinalysis, Automated UA Leukoctes 0 Ro/uL Last Edit by Niya Garza, A on 04/20/24 11:10 UA Nitrite Negative Last Edit by Niya Garza, A on 04/20/24 11:10 UA Urobilinogen 0.2 mg/dL Last Edit by Niya Garza A on 04/20/24 11:1 0 UA Protein 15 mg/dL Last Edit by Niya Garza, A on 04/20/24 11:10 UA pH 5.5 Last Edit by Niya Garza, A on 04/20/24 11:10 UA Blood 200 Angel/uL Last Edit by Niya Garza A on 04/20/24 11:10 UA Specific [place] 1.030 Last Edit by Niya Garza, A on 04/20/24 11: 10 UA Ketone Negative Last Edit by Niya Garza, A on 04/20/24 11:10 UA Bilirubin 0 mg/dL Last Edit by Niya Garza A on 04/20/24 11:10 UA Glucose 0 mg/dL Last Edit by Niya Garza A on 04/20/24 11:10 Results Reviewed Results Reviewed: Laboratory Last Values Urine pH (Auto) 5.5 04/20/24 10:58 Specific [place] (Auto) 1.030 04/20/24 10:58 Urine Protein (Auto) 15 mg/dL 04/20/24 10:58 Glucose (UA)(Auto) 0 mg/dL 04/20/24 10:58 Urine Ketones (Auto) Negative 04/20/24 10:58 Urine Blood (Auto) 200 Angel/uL 04/20/24 10:58 Urine Nitrite (Auto) Negative 04/20/24 10:58 Urine Bilirubin (Auto) 0 mg/dL 04/20/24 10:58 Urine Urobilinogen (Auto) 0.2 mg/dL 04/20/24 10:58 Leukocyte Esterase (Auto) 0 Ro/uL 04/20/24 10:58 Urine cytology-Collected: 02/25/24 Location: [facility] Received: 02/26/24 Diagnosis Urine: Negative for high-grade urothelial carcinoma. See comment. COMMENT: Cellular specimen consisting of squamous cells and acute inflammatory cells. Clinical History Urinary tract infection, site not specified Material Received Urine Gross Description Received is 80 cc of clear very light yellow fluid from which a ThinPrep slide is prepared. Assessment & Plan Assessment & Plan (1) Microscopic hematuria: Code(s): R31.29 - Other microscopic hematuria Category: Medical (2) Mixed stress and urge urinary incontinence: Code(s): N39.46 - Mixed incontinence Category: Medical (3) Bladder wall thickening: Code(s): N32.89 - Other specified disorders of bladder Category: Medical Plan Myrbetriq increased to 50 mg. Follow-up with nurse practitioner to review renal ultrasound results and discuss any improvement in the lower urinary tracts symptoms Orders: Orders AMB Cystoscopy Today R31.29 - Other microscopic hematuria AMB Urinalysis Automated Today Z13.9 - Encounter for screening, unspecified Medications: New mirabegron ER (Myrbetriq) 50 mg PO DAILY 30 tabs 0RF Patient Instructions: The patient had an opportunity to ask questions regarding treatment plan. The patient expressed understanding and agreement with the above treatment plan. The patient is aware they should contact our office by phone for worsening of their current condition or the appearance of new symptoms. Compliance is encouraged with any medications and followup testing that is ordered. It is a privilege to be allowed the opportunity to participate in the urologic care of your patient. If you have any questions or concerns regarding treatment for the above conditions please do not hesitate to contact me. The office teleph one contact is [phone]. This note is constructed in part using voice recognition software. While every effort has been made to ensure accuracy living coach errors may have been included. Yours sincerely, Ioana Maldonado MD Coding Level of Care Code Est Pt Level 3 (13075) Diagnoses Microscopic hematuria R31.29 Mixed stress and urge urinary incontinence N39.46 Bladder wall thickening N32.89 CPT Codes Cystoscopy - CPT: 02030-[id number] ([id number])
--- NOTE | 2024-04-20 10:46 | A.OFFVIS_ITS ---
Intake Visit Reasons: cysto/US (pending) Intake Note: Patient is Present for Cystoscopy/US(Results Pending) Urology Med: Myrbetriq Antibiotic Allergy: None Blood Thinner: None Ultrasound Results are still Pending Patient states that she still have some urgency, states that she has been taking Myrbetriq for a month so far has not seen any significant improvement just yet URO- G Disposable Cystoscope lot:[id number] exp:07/31/2026 Training And Development Coordinator Required: No Accompanied by: Self / Same As Patient Allergies latex Adverse Reaction (Mild, Verified 04/20/24 10:57) hives [facility] Medical History Hypertriglyceridemia Positive Tinel's sign Positive Phalen maneuver Cervicalgia HTN (hypertension) Decreased hearing of both ears Environmental and seasonal allergies Tinnitus of both ears Knee pain Excessive daytime sleepiness Loud snoring Vitamin D deficiency Impaired fasting glucose Mixed dyslipidemia Morbid obesity Hiatal hernia with gastroesophageal reflux Family history of premature CAD Annual visit for general adult medical examination with abnormal findings Anxiety and depression Surgical History H/O endoscopy H/O wisdom tooth extraction Family History Father Substance use disorder Mental health disorder Alcoholism Myocardial infarction acute, Onset Age: 55 Depression Maternal Uncle Testicular cancer Social History Household Members: Spouse and Children Housing: House Alcohol intake: current Alcohol intake frequency: holidays/special occasions only Patient Tobacco Use Status: Never used Tobacco e-Cigarette/Vaping Use: Never Used Current occupational status: unemployed and other Sexual orientation: Straight/Heterosexual Gender identity: Female Cognitive needs: No Hearing needs: No Vision needs: Yes Coding
== END 2024-04-20 11:13 | disposition home or self-care (01) ==
PROVIDERS: PCP Internal Medicine; Visit Provider Urology
DX: R31.29 Other microscopic hematuria (principal); N39.46 Mixed incontinence; N32.89 Other specified disorders of bladder; Z13.9 Encounter for screening, unspecified
CPT/HCPCS: 52000

== ENCOUNTER → 2024-04-20 10:21 | Outpatient (BNVA) | payer OTHER, SELFPAY | PROVIDERS: PCP Internal Medicine; Visit Provider Urology | DX: R31.29 Other microscopic hematuria (principal); N39.46 Mixed incontinence; N32.89 Other specified disorders of bladder | CPT/HCPCS: 52000; 81003 ==

== ENCOUNTER 2024-04-24 13:00 | Outpatient (AMB) | payer OTHER, SELFPAY ==
--- NOTE | 2024-04-24 13:07 | A.OFFPSYCH_ITS ---
Intake Intake Visit Reasons: consult follow up Patient Services Clerk Required: No Allergies latex Adverse Reaction (Mild, Verified 04/20/24 10:57) hives Medication List - Last Reconciled 04/24/24 by Lynn Kemp APRN azelastine 1 spray intranasal BID PRN cholecalciferol (vitamin D3) 25 mcg PO DAILY CPAP (CPAP Machine/Device) As directed duloxetine 120 mg (2 x 60 mg) PO DAILY hydroxyzine HCl 25 mg PO BEDTIME PRN levonorgestrel (Mirena) intrauterine lidocaine 5% 1 patch topical DAILY lisinopril-hydrochlorothiazide 10-12.5 mg 1 tab PO DAILY loratadine (Claritin) 10 mg PO DAILY magnesium oxide 400 mg PO DAILY 30 days Myrbetriq ER (mirabegron) 50 mg PO DAILY NS HPI- Psychiatric Chief Complaint: consult follow up HPI Narrative: pt here today for follow up; mood symptoms and anxiety worse since last visit; not tolerating the increase cymbalta. Her PHQ9 went from 22 to 24 and GAD7 went from 15 to 16. Pt tearful and overwhlemd; very depressed; difficulty speaking; long pauses; reports daily intrusive thoughts of stabbing herself in the neck and head with a knife or any instrument. She says that she would not hurt herslef because of her children but then says that she has thoughts that her family would be better off without her. She says they wouldn't starve because her can cook and her 16 yr old would be able to feed themselves. She reports the thoughts of hurting or killing herslef are every day; she is not sleeping well ; she is often up until 2 am and then sleeps well into the afternoon; she sits for hours staring blankly. She worries every day about her health, her family, finances, the world events. She has no motivation and can' get herself to even cook or get up out bed sometimes. She has tried multiple antidepressants and has not done well with them: prozac, lexapro, wellbutrin, effexor. She deos report episodic good days wheree she is more productive, creative, enegetic and will shop impulsively howeever these onlylast 24 hours or less. Past Psychiatric History: outpt tx since age 22. No IPLOC PAST MEDICTIONS: lexapro- increased anger wellbutrin- very negative/angry zoloft- woorked first time took - did not work on retrial prozac- ok for a bit and then stopped working effexor- excessive weight gain Subjective Subjective Subjective Medication Compliance: Yes Side effects from medications: Yes (worsening depression) Review of Systems Medical Review of Systems: unchanged Mental Status Exam Mental Status Exam Patient Appearance: Fatigued Patient Orientation: Person, Place, Time and Situation Level of Consciousness: Awake and Restless Patient Behavior: Talkative, Cooperative, Anxious, Crying and Poor Eye Contact Mood Description: Depressed and Anxious Affect Description: Depressed, Anxious and Sad Patient Cognition Impaired: No Ability to Follow Directions: Good Speech Pattern: Difficulty Finding Words, Whisper and Long Pauses Memory Description: Intact Hallucinations: Tactile (felt like she needed to get something like a pressure out of her head ) Thought Process: Distracted and Rumination Thought Content: positive for Preoccupation, positive for Loose Associations and positive for Suicidal Ideation Judgement: Fair Assessment and Plan Assessment & Plan (1) Major depressive disorder, recurrent, severe with psychotic features: Status: Acute Code(s): F33.3 - Major depressive disorder, recurrent, severe with psychotic symptoms Plan recommend inpatient admission at this time due to level of deprssion and ideas about needing to get something out of gher head by puncturing her head with knife or instrument; Pt has SI with plan and verbalizes no intent due to children but then talked about how her children could get along without her. consider tapering cymbalta and adding mood stabilizer and antipsychotic Counseling and coordination of Care Details: I spent [] minutes reviewing the record, seeing the patient and documenting in the medical record. Counseling provided to the patient/caregiver as outlined below. Addressed patient/caregiver concerns regarding current medication regime including effective adherence. Addressed patient/caregiver concerns regarding diagnosis and prognosis including accuracy of diagnosis, prognosis over time, impact of diagnosis. Addressed patient/caregiver concerns regarding impact of recent stressors. [facility] Medical History Hypertriglyceridemia Positive Tinel's sign Positive Phalen maneuver Cervicalgia HTN (hypertension) Decreased hearing of both ears Environmental and seasonal allergies Tinnitus of both ears Knee pain Excessive daytime sleepiness Loud snoring Vitamin D deficiency Impaired fasting glucose Mixed dyslipidemia Morbid obesity Hiatal hernia with gastroesophageal reflux Family history of premature CAD Annual visit for general adult medical examination with abnormal findings Anxiety and depression Surgical History H/O endoscopy H/O wisdom tooth extraction Family History Father Substance use disorder Mental health disorder Alcoholism Myocardial infarction acute, Onset Age: 55 Depression Maternal Uncle Testicular cancer Social History Household Members: Spouse and Children Housing: House Alcohol intake: current Alcohol intake frequency: holidays/special occasions only Patient Tobacco Use Status: Never used Tobacco e-Cigarette/Vaping Use: Never Used Advance Directives: No Advance Directives Information Provided: Yes Current occupational status: unemployed and other Sexual orientation: Straight/Heterosexual Gender identity: Female Cognitive needs: No Hearing needs: No Vision needs: Yes Social History: and has 3 children age 21, 16, 4. H is combat vet . family has moved around a lot due to pt grew up in [place] [place] [place]. lived with both parents; after her father lost his job they all moved in with grandmother; family experienced severe poverty- very traumatic. no running water, no food, no electricity at times. no telephone, no flushing toilets no lights. Father became ETOHIC and massive heart attack at age 55. Pt has 3 siblings. Substance History: none Trauma History: childhood severe poverty Coding Level of Care Code Est Pt Level 5 (11692) Diagnoses Major depressive disorder, recurrent, severe with psychotic features F33.3
--- OUTSIDE RECORDS SUMMARY | 2024-04-24 14:28 | XMS_ITS | Continuity of Care Document ---
Author Name [facility] Organization [facility] Care Team Providers Care Integrated Marketing Intern Name Role Phone [facility] Unavailable Unavailable Medications Combined list of outpatient [...] CITRON PHARMA L, 500 ea. BOTTLE Active [id number] 4 2023 10 Pharmac y Data Transac tion Service Facilit y Benzonatate ([employer]) 100 CAPSULE in 1 BOTTLE Active [id number] 06/26/19 2 4 2023 60 Pharmac y Data Transac tion Service Facilit y DIAZEPAM (DIAZEPAM), 5MG, TABLET, ORAL, IVAX PHARMACEUT, 100 ea. BOTTLE Active [id number] 4 2023 10 Pharmac y Data Transac tion Service Facilit y DULOXETINE HCL (DULOXETINE HCL), 60 MG, CAPSULE DR, ORAL, BRECKENRIDG E, 90 ea. BOTTLE Active [id number] 4 2023 90 Pharmac y Data Transac tion Service Facilit y DULOXETINE HCL (DULOXETINE HCL), 60 MG, CAPSULE DR, ORAL, BRECKENRIDG E, 90 ea. BOTTLE Active [id number] 4 2023 90 Pharmac y Data Transac tion Service Facilit y LIDOCAINE (lidocaine) , 5 %, ADH. PATCH, TOPICAL, AMNEAL PHARMACE, 30 ea. BOX Active [id number] 4 2023 30 Pharmac y Data Transac tion Service Facilit y LISINOPRIL (lisinopril ), 10 MG, TABLET, ORAL, LUPIN PHARMACEU, 1000 ea. BOTTLE Active [id number] 4 2023 30 Pharmac y Data Transac tion Service Facilit y LISINOPRIL (lisinopril ), 10 MG, TABLET, ORAL, LUPIN PHARMACEU, 1000 ea. BOTTLE Active [id number] 4 2023 30 Pharmac y Data Transac tion Service Facilit y LISINOPRIL (LISINOPRIL ), 5MG, TABLET, ORAL, LUPIN PHARMACEU, 1000 ea. BOTTLE Active [id number] 3 2022 30 Pharmac y Data Transac tion Service Facilit y LISINOPRIL (LISINOPRIL ), 5MG, TABLET, ORAL, LUPIN PHARMACEU, 1000 ea. BOTTLE Active [id number] 4 2023 30 Pharmac y Data Transac tion Service Facilit y LISINOPRIL- HCTZ (LISINOPRIL /HYDROCHLOR OTHIAZIDE), 10-12.5MG, TABLET, ORAL, LUPIN PHARMACEU, 100 ea. BOTTLE Active [id number] 4 2023 30 Pharmac y Data Transac tion Service Facilit y LISINOPRIL- HCTZ (LISINOPRIL /HYDROCHLOR OTHIAZIDE), 10-12.5MG, TABLET, ORAL, LUPIN PHARMACEU, 100 ea. BOTTLE Active [id number] 4 2023 30 Pharmac y Data Transac tion Service Facilit y SULFAMETHOX AZOLE-TRIME THOPRIM (sulfametho xazole/trim ethoprim), 800-160 MG, TABLET, ORAL, RISING PHARM, 100 ea. BOTTLE Active [id number] 4 2023 14 Pharmac y Data Transac tion Service Facilit y Allergies, Adverse Reactions, Alerts Combined list of allergies from Department of Defense and Veterans Affairs facilities. It does not include entries that were removed or entered in error. 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 METALIZING SUPERVISOR ADHESIVES Propensity to adverse reaction (finding) active 0 [facility] Adhesives Allergy to substance Active One or More A Facilities METALIZING SUPERVISOR HYDROCODONE Drug allergy (disorder) active 0 [facility] Latex Drug allergy Active One or More A Facilities METALIZING SUPERVISOR LATEX GLOVE Propensity to adverse reactions to drug (finding) active 0 [facility] VICODIN Propensity to adverse reactions to drug (finding) active 0 [facility] Immunizations Combined list of available immunizations from the Department of Defense and Veterans Affairs facilities. 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 2) Encounters from the Department of [employer] facilities going back up to 280 months. Location Location Details Encounter Type Encounter Number Reason For Visit Attending Provider ADM Date DC Date Status Disposition Source One or More A Facilitie s METALIZING SUPERVISOR History 04/22 One or More A Facilit ies METALIZING SUPERVISOR Ambulator y Pharmacy Lifetime Pharmacy [id number] 05/13 Ambulat ory Pharmac y Procedures Combined list of: 1) Procedures from Department of Veterans Affairs facilities going back up to thelast 18 months, not all [place] non-surgical procedures are included; 2) All procedures [...] Plan No data available for this section 04/24/2024 Ambulatory Pharmacy Functional Status Combined list of recent functional and cognitive assessments recorded at [facility] ([facility] Functional [place] Measurement (FIM) Scale: 1 = Total Assistance (Subject = 0% +), 2 = Maximal Assistance (Subject = 25% +), 3 = Moderate Assistance (Subject = 50% +), 4 = Minimal Assistance (Subject = 75% +), 5 = Supervision, 6 = Modified [place] (Device), 7 = Complete [place] (Timely, Safely). Assessment Date/Time Source Assessment Type Assessment Skill Assessment Score Assessment Details No data available for this section
== END 2024-04-24 14:11 | disposition home or self-care (01) ==
LOC: HO.HOP 13:00
PROVIDERS: PCP Internal Medicine; Visit Provider Clinical Nurse Specialist Psychiatric/Mental Health
DX: F33.3 Major depressive disorder, recurrent, severe with psychotic symptoms (principal)
CPT/HCPCS: 99215

== ENCOUNTER → 2024-04-24 13:00 | Outpatient (BNVA) | payer OTHER, SELFPAY | PROVIDERS: PCP Internal Medicine; Visit Provider Clinical Nurse Specialist Psychiatric/Mental Health ==

== ENCOUNTER 2024-04-24 14:09 | Inpatient (IN) | payer OTHER, SELFPAY ==
[2024-04-24 14:45] VITALS: BP 178/96; PULSE 98; RESP 18; TEMP 36.8; O2SAT 98
[2024-04-24] MEDS: hydrOXYzine HCL 25 MG TABLET PO ×2 (15:08→21:03)
[2024-04-24 15:31] VITALS: BMI 46.6
--- OUTSIDE RECORDS SUMMARY | 2024-04-24 15:36 | XMS_ITS | Data Portability ---
Author Organization [place] - [facility], [place] - [facility] - Address [address] [place] [address] Care Team Providers Care Bolt Threader Name Role Phone ROBIN PENALOZANN Primary Care [...] 6-8 weeks. This visit was conducted via [employer] website [employer] (IMMI) using both audio and video during the 2019 COVID-19 pandemic. Patient consented to non face to face service. Patient location: car Provider location: [facility] [place] Start time: 1417 End [...] This visit was conducted via telehealth website [employer] (IMMI) using both audio and video during the 2020. Patient consented to non face to face service. Patient location: home Provider location: [facility] [place] Start time: 1424 End [...] This visit was conducted via telehealth website [employer] (IMMI) using both audio and video during the 2019. Patient consented to non face to face service. Patient location: home Provider location: [facility] [place] Start time: 1352 End [...] HCl 50 mg tablet 2020 021 [facility], [address], [place], [address], 15:27:21 duloxetine 30 mg capsule,del ayed release 2020 021 [facility], [address], [place], [address], 15:27:17 duloxetine 60 mg capsule,del ayed release 2020 021 [facility], [address], [place], [address], 15:27:17 duloxetine 30 mg capsule,del ayed release 2021 022 [facility], [address], [place], [address], 15:13:01 duloxetine 60 mg capsule,del ayed release 2021 022 [facility], [address], [place], [address], 2 15:12:56 hydroxyzine HCl 50 mg tablet 2021 022 [facility], [address], [place], [address], 15:12:57 Patient TargetsNo targets recorded. Patient InstructionsNo instructions recorded. Reason for Referral None Reported. Problems Name Problem SNOMED Code Status Onset Date Resolution Date Notes Provider Name and Address Organization Details Recorded Time Multiple environm ental allergie s Active scotty sepulveda [facility] 6 12:23:04 Irritabl e bowel syndrome 48874257 Active celiac disease Ab testing Neg 11/03; improved w/ Gluten free diet scotty sepulveda [facility] 6 12:23:04 Gastroes ophageal reflux disease 143598672 Active scotty sepulveda [facility] 6 12:23:04 Mixed anxiety and depressi ve disorder 808941445 Active hx of post depressi on and took lexapro but felt poor response , wellbutr in was very neg side effects (bad vivid dreams of her hurting her family); zoloft was very good response but had to stop when breast feeding bad w/d (didn't wean) scotty sepulveda [facility] 6 12:23:03 Migraine 63747624 Active [facility]a [facility] 6 12:23:03 Hiatal hernia 53177964 Active scotty [facility]vedaVA [facility] 6 12:23:04 Hemorrho ids 56588098 Completed 12/11/2018 tx'd w/ anusol-H C Timbo Mckeon DO [address], [place], [address] , [facility] 9 17:20:55 Female stress incontin ence 16858337 Active Madelyn Yevgeniy derickVA [facility] 7 18:34:40 Pyelonep hritis 51251617 Completed 201412/11/2018 tx'd w/ Levaquin Timbo Mckeon DO [address], [place], [address] , [place] [facility] 9 17:19:51 Insomnia 233902915 Active scotty sepulvedaVA [facility] 6 12:23:03 Fracture of hand 64113302 Completed 200912/11/2018 Left Timbo Mckeon DO [address], [place], [address] , [place] [facility] 9 17:20:04 Tinnitus 06011730 Active scotty sepulvedaVA [facility] 6 12:23:04 Decrease d hearing 720487647 Completed 12/11/2018 Timbo Mckeon DO [address], [place], [address] , [place] [facility] 9 17:19:28 Reduced visual acuity 14527934 Active scotty banda null, [place] - [facility] 6 12:23:04 Sensorin eural hearing loss of bilatera l ears 318659348 Active Asha Bradford [address], [place], [address] , [place] [facility] 6 13:11:25 Menorrha obi 846241063 Active Margy Becker MD [address], [place], [address] , [place] [facility] 7 22:56:04 Blood in urine 50674169 Completed 12/11/2018 Timbo Mckeon DO [address], [place], [address] , [place] [facility] 9 17:19:34 Obesity 885563855 Active 2018 Timbo Mckeon DO [address], [place], [address] , [place] [facility] 9 01:18:28 Pregnanc y 91071720 Completed 201903/16/2020 Aliyahjanet Whitehead null, [place] - [facility] 0 12:25:25 Gestatio nal diabetes mellitus class A2 31006305 Active 2019 Aliyahjanet Whitehead null, [place] - [facility] 0 12:25:22 Gestatio nal diabetes mellitus class A2 66750005 Completed 2019 Aliyahjanet White[place] null, [place] - [facility] 0 12:25:22 Depressi ve disorder 95745895 Active 2020 Yaya Casanova DO [address], [place], [address] , [place] [facility] 1 15:54:10 Notes:hx plantar fasciitis; hx L. [...] Non-Stress Test completed Malka VANEGAS, Cali Carter [address], [place], [address], [facility] 02/25/2020 13:33:54 02/18/20 20 Non-Stress Test completed Cali Ace MD [address], [place], [address], [facility] 02/18/2020 15:49:47 02/11/20 20 Non-Stress Test completed Cali Ace MD [address], [place], [address], [facility] 02/11/2020 15:03:18 01/12/20 20 Non-Stress Test completed Cali Ace MD [address], [place], [address], [place] [facility] 01/12/2020 18:21:04 12/19/19 19 Date of Last Pap Smear completed Timbo Mckeon DO [address], [place], [address], [facility] 12/24/2018 14:45:47 06/30/19 17 Ortho Corticosteroid Injection completed Vy Feliciano [facility] 06/29/2016 12:26:26 06/29/19 17 Cystoscopy (female) completed Chuck VANEGAS, [address], [place], [address], [facility] 06/28/2016 12:41:47 06/14/19 17 Bladder Scan completed Chuck VANEGAS, [address], [place], [address], [facility] 06/14/2016 13:22:58 04/05/20 16 Tympanometry completed Asha Bradford [address], [place], [address], [facility] 04/05/2016 13:11:04 04/05/20 16 Audiogram.old completed Asha Bradford [address], [place], [address], [facility] 04/05/2016 13:11:04 11/21/19 15 Other completed Georgi Moctezuma MD [address], [place], [address], [facility] 01/13/2016 00:18:30 10/21/19 15 Other completed Georgi Moctezuma MD [address], [place], [address], [facility] 01/13/2016 00:18:30 04/22/19 00 Adair Teeth Removed completed Georgi Moctezuma MD [address], [place], [address], [facility] 01/12/2016 22:50:32 Oral surgery procedure completed Dena Argueta [facility] 04/06/2016 12:36:17 Imaging Results None recorded. Procedure Notes None recorded. Medical Equipment None Reported. Allergies Allergen ID Allergen Name Allergen Category Reaction Reaction Severity Criticality Documentation Date Start Date Code Code System Note Provider Name and Address Organization Details Recorded Time 219341 latex environme nt,medica tion hives moderate Not available 01/12/2016 21347 91 RxNorm Georgi Moctezuma MD [address], [place], [address], [facility] 6 22:23:54 334531 acetamino phen / hydrocodo ne medicatio n other moderate Not available 04/05/2016 70168 2 RxNorm facia l numbn ess scotty sepulveda, [facility] 6 12:23:03 446014 Wellbutri n medicatio n Not available Not available Not available 06/18/2016 48649 RxNorm vivid dream s/fri ghten ing ; used w/ post partu m grisele carter Moctezuma MD, Georgi Costa [address], [place], [address], [facility] 7 11:10:40 407165 adhesive tape environme nt,medica tion Not available Not available Not available 03/16/2020 Aliyah sepulveda, [facility] 0 12:21:24 Medications Name Sig Start Date [...] e 137 mcg (0.1 %) nasal spray Howard 1 spray every day by intranas al [...] Not Available Not Available Not Available FreeStyle Ophelia Lite kit 03/16 completed Not Available Not [...] completed Not Available Not Available Not Available Se-Christos- 19 29 mg iron-1 mg tablet Take 1 tablet by oral route for 90 days. 08/17 completed Not Available Not Available Not Available Vitals None Recorded Social History Question Answer Notes LastModified by Organizat ion Details LastModified Time Tobacco Smoking Status Never Smoker 12/11/18 Kathy Guallpa [facility] 12/11/2018 16:59:59 Do You Have An Advance Directive? No I Gave Her The Form For The Living Will And Health Power Of [place], She Does Want To Be Resuscitated. She Does Not Want To Be Maintained On Chronic Life Support If There Is Little Hope Of A Meaningful Recovery. - 12/18/2018 Information not available 12/18/2018 What Is Your Level Of Alcohol Consumption? None [email or web address] Information not available 10/27/2019 Are You Blind [...] COVID-19 While That Person Was Ill? No [email or web address] Information not available 07/30/2019 Have You Been To An Area Known To Be High Risk For COVID-19? No [email or web address] Information not available 07/30/2019 What Type Of Diet Are You Following? REGULAR Low Sodium Information not available 01/12/2016 Which Illicit Or Recreational Drugs Have You Used? None Information not available 12/11/2018 Do You Or Have You Ever Used E-cigarettes Or Vape? 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 No 12/11/18 Mh Information not available 04/06/2016 Have You Traveled Outside Of The [place] In The Last 21 Days (3 Weeks)? No Information not available 04/06/2016 Do You Have Any Yarsanism Beliefs That May Impact Your Health Care Decisions? No Does Not Follow Any Muslim Information not available 12/11/2018 Did You Hurt [...] Details LastModified Time Father Myocardial infarction 55 Not available 04/25 18:44:02 Father Hypertensive disorder [email or web address] Not available 2016 18:44:02 Father Hyperlipidem ia [email or web address] Not available 2016 18:44:02 Paternal Aunt Malignant tumor of cervix Not available 2016 18:44:02 Paternal Aunt Dementia [email or web address] Not a vailable 04/25/2016 18:44:02 Mother Pyelonephrit [...] quadrivalent , PF [address] [facility] 03/15/2021 12:10:26 COVID-19, mRNA, LNP-S, PF, 30 mcg/0.3 mL dose [address] [facility] 08/30/2020 10:45:30 COVID-19, mRNA, LNP-S, PF, 30 mcg/0.3 mL dose [address] [facility] 08/30/2020 10:45:45 COVID-19, mRNA, LNP-S, PF, 30 mcg/0.3 mL dose [address] [facility] 03/15/2021 11:48:03 Influenza, split virus, trivalent, PF 8 cancelled patient objection Not Available [facility] 05/09/2019 02:33:30 Influenza, MDCK, quadrivalent , PF 8 completed Not Available [facility] 05/09/2019 03:23:32 Influenza, MDCK, quadrivalent , PF 9 completed Not Available [facility] 05/09/2019 03:01:50 Influenza, split virus, quadrivalent , PF [address] [facility] 01/05/2020 16:31:36 Tdap 07/23/201 3 completed Not Available [facility] 03/07/2020 09:20:47 Past Encounters Encounter ID Performer Location Encounter Start Date Encounter Closed Date Diagnosis/Indication Diagnosis SNOMED-CT Code Diagnosis ICD10 Code [id number] Anisha Mcclain [facility] [address] [facility] [place] [address] 01/12/2016 10:23:10 01/13/2016 12:09:34 Adult health examination 300602871 Z00.00 Hematology screening test 942383650 Z13.0 Hyperlipid emia screening 809802405 Z13.220 Endocrine/ metabolic screening 759422315 Z13.228 Mixed anxi ety and depressive disorder 648405233 F41.8 Tinnitus 01619974 H93.13 Decreased hearing 296060 001 H91.93 Reduced visual acuity 13 754800 H54.7 Contraception care 15207 5005 Z30.40 [id number] Lv lucas MD, Chandrakant Shipley [facility] [place] POS [address] [facility] [place] [address] 04/05/2016 11:57:03 04/05/2016 13:17:18 Tinnitus 93390094 H93.13 Allergic r hinitis caused by pollen 71332911 J30.1 Sensorineu ral hearing loss of bilateral ears 368989327 H90.3 Dizziness 177384311 R42 [id number] Asha Bradford [facility] [place] POS [address] [facility] [place] [address] 04/05/2016 13:09:55 04/05/2016 13:12:09 Sensorineural hearing loss of bilateral ears 891922345 H90.3 [id number] Eugenio VANEGAS, Margy Valdivia [facility] [place] POS [address] [place] [address],[address] [place] [address] 04/06/2016 12:09:16 04/06/2016 13:47:10 Gynecologic examination 32703624 Z01.419 Screening for malignant neoplasm of cervix 740079974 Z12.4 Menorrhagia 542951705 N9 2.0 History of urinary tract infection 3857245163 107 Z87.440 Surveillan ce of contraception 782996282 Z30.40 [id number] Eugenio VANEGAS, Margy Valdivia [facility] [place] POS [address] [place] [address],[address] [place] [address] 04/25/2016 17:48:13 04/25/2016 19:53:53 Menorrhagia 240984202 N92.0 Blood in urine 31424445 R31.9 [id number] Rhianna VANEGAS, Georgi Costa [facility] [place] POS [address],[place] [address] 05/08/2016 10:01:31 05/08/2016 12:08:23 Migraine 91234934 G43.909 Mixed anxi ety and depressive disorder 197205823 F41.8 Carpal davonte simon syndrome 72727526 G56.00 Insomnia 995407012 G47.0 0 Hand pain 04049074 M79.6 42 Vitamin D deficiency 347 13554 E55.9 [id number] Chuck VANEGAS, [facility] - UROLOGY [facility] [place] POS [address] [place] [address] 06/14/2016 12:22:40 06/14/2016 14:22:12 Microscopic hematuria 640672678 R31.21 Renal colic 2902987 N23 [id number] Rhianna VANEGAS, Georgi Costa [facility] [place] AM POS [address],[place] [address] 06/18/2016 10:33:06 06/18/2016 12:04:21 Mixed anxiety and depressive disorder 301387950 F41.8 [id number] Chuck VANEGAS, [facility] - UROLOGY [facility] [place] POS [address] [place] [address] 06/28/2016 12:09:59 06/28/2016 12:45:15 Blood in urine 15185972 R31.9 [id number] Donnell VANEGAS, Luis Soliz [facility] - ORTHOPEDI [facility] POS [address] [place] [address] 06/29/2016 11:24:40 07/13/2016 10:46:48 Hand pain 77225488 M79.643 Carpal davonte simon syndrome 13251380 G56.01 G56.02 [id number] Donnell VANEGAS, Luis Soliz [facility] [place] POS [address] [place] [address] 07/13/2016 11:07:42 07/13/2016 13:24:50 Pain in wrist 23809396 M25.531 Hand pain 17515737 M79.6 43 Carpal davonte simon syndrome 16953079 G56.01 G56.02 [id number] Rhianna VANEGAS, Georgi Costa [facility] POS [address] [facility] [address] 07/16/2016 10:58:41 07/16/2016 11:42:57 Mixed anxiety and depressive disorder 242835212 F41.8 [id number] Donnell VANEGAS, Luis Soliz [facility] [place] POS [address] [place] [address] 08/13/2016 11:24:07 08/13/2016 12:23:07 Hand pain 61741017 M79.641 Pain in wrist 19345847 M 25.531 Carpal davonte simon syndrome 88846662 G56.01 G56.02 [id number] Donnell VANEGAS, Luis Reynaoli [facility]THOP[facility]I CSURGERY [place] POS [address] [place] [address] 09/20/2016 11:45:56 09/20/2016 14:44:21 Pain in wrist 33916973 M25.531 M25.532 Hand pain 26522721 M79.6 41 Carpal davonte simon syndrome 08206727 G56.01 G56.02 [id number] Chuck VANEGAS, [facility] - [place] POS [address] [place] [address] 10/04/2016 11:54:33 10/04/2016 12:31:12 Blood in urine 90721425 R31.9 Bladder mu scle dysfunction - overactive 729992953 N32.81 Female str ess incontinence 33762774 N39.3 [id number] Donnell VNAEGAS, Luis Soliz [facility]I CSURGERY [place] [address] [place] [address] 10/08/2016 09:47:26 10/08/2016 10:46:23 Pain in wrist 80972198 M25.531 M25.532 Hand pain 91485590 M79.6 41 Carpal davonte simon syndrome 94658384 G56.01 G56.02 [id number] Donnell VANEGAS, Luis Soliz [facility] - [facility]I CS[facility]GERY [facility] POS [address] [place] [address] 11/09/2016 10:50:45 11/09/2016 12:33:48 Pain in wrist 06701708 M25.531 M25.532 Neck pain 21073662 M54.2 Hand pain 91989883 M79.6 41 Carpal davonte simon syndrome 56073883 G56.01 G56.02 [id number] Rhianna VANEGAS, Georgi Costa [facility] AM POS [address],[place] [address] 11/21/2016 10:22:19 12/11/2016 16:16:59 Low back pain 915851354 M54.5 Snoring 46855652 R06.83 [id number] Rhianna VANEGAS, Georgi Costa [facility] [place] POS [address],[place] [address] 01/10/2017 16:20:44 01/10/2017 17:19:55 Pain in left knee 0823412780 87225 M25.562 Depressive disorder 3548 9007 F32.89 Fatigue 53719758 R53.83 [id number] Chuck VANEGAS, [facility] - [facility]OLOGY [facility] [place] POS [address] [place] [address] 01/31/2017 11:27:16 01/31/2017 12:47:19 Bladder muscle dysfunction - overactive 349123494 N32.81 Female str ess incontinence 65890513 N39.3 [id number] Tete Brian DO [facility] [place] AM#[address] POS [address] [place] [address] 03/08/2017 11:55:53 03/13/2017 00:11:33 Fatigue 31144965 R53.83 Allergic rhinitis 177672 04 J30.9 Obesity 899259549 E66.9 [id number] Meño Brian [facility]a [facility] POS [address] [place] [address] 06/12/2017 10:00:03 06/12/2017 10:41:36 Active or passive immunization 494451937 Z23 Fatigue 51730232 R53.83 Allergic rhinitis 826250 04 J30.9 Gastroesop hageal reflux disease 218048512 K21.9 [id number] Meño Brian [facility]fta [facility] POS [address] [place] [address] 08/12/2017 10:54:36 08/12/2017 11:48:10 Obesity 767793899 E66.9 Insomnia 788627906 G47.0 0 Neck pain 69679793 M54.2 Migraine 20084970 G43.90 9 [id number] Meño Brian DOfta [facility] POS [address] [place] [address] 02/11/2018 10:03:22 02/11/2018 10:50:04 Administration of influenza vaccine 95839420 Z23 Migraine 82762383 G43.90 9 Insomnia 512582086 G47.0 0 Environmental allergy 42 4380819 T78.49XA [id number] Shade VANEGAS, Nitin [facility] [place] AM#[address] [place] [address] 04/02/2018 14:24:14 04/02/2018 15:10:58 Adult health examination 507841962 Z00.00 Migraine 92300999 G43.90 9 [id number] Timbo Mckeon DO#1 POS [address] [facility],[address] [facility] [place] [address] 12/11/2018 16:42:55 12/11/2018 17:56:44 Bladder muscle dysfunction - overactive 891072025 N32.81 Body mass index 30+ - obesity 777675871 Z68.39 Migraine 15391524 G43.90 9 [id number] Timbo Mckeon DO#1 POS [address] [facility],[address] [place] [address] 12/18/2018 09:57:19 12/18/2018 11:37:10 Adult health examination 120536068 Z00.00 Active or passive immunization 616137090 Z23 Body mass index 30+ - obesity 452144406 Z68.38 Hyperhidro sis of axilla 463025166 L74.510 Elevated blood-pressure reading without diagnosis of hypertension 035518603 R03.0 [id number] Malka VANEGAS, Cali Carter [facility] [place] POS [address] [place] [address] 07/30/2019 10:48:16 07/30/2019 12:44:41 test positive 353595846 Z32.01 Mild hyper emesis gravidarum 61850568 O21.0 Amenorrhea 02670777 N91. 2 [id number] Malka VANEGAS, Cali Carter [facility] [place] POS [address] [place] [address] 08/04/2019 11:31:16 08/04/2019 13:34:46 Disorder of menstruation 982561315 N92.6 Routine an tenatal care 430023074 Z34.81 Z3A.08 Venereal d isease screening 485106573 Z11.3 Advanced m aternal age 925559614 O09.899 [id number] Malka VANEGAS, Cali Carter [facility] [place] POS [address] [place] [address] 08/18/2019 11:25:44 08/18/2019 13:21:34 Advanced maternal age 754641298 O09.899 Routine an tenatal care 218762377 Z34.81 Z3A.08 Mild hyper emesis gravidarum 70281072 O21.0 [id number] Malka VANEGAS, Cali [facility] - [facility] [place] POS [address] [place] [address] 09/22/2019 13:57:14 09/22/2019 14:40:34 Multigravida of advanced maternal age 129356242 O09.522 Z3A.15 [id number] Malka VANEGAS, [facility] - [facility] SCHED[facility] [place] POS [address] [place] [address] 10/20/2019 13:50:29 10/20/2019 15:17:10 Multigravida of advanced maternal age 744351332 O09.523 Z3A.19 [id number] Dickson Langford MD [facility] [employer] [facility] POS [address] [place] [address] 10/27/2019 10:57:43 10/27/2019 14:41:15 Advanced maternal age 834489552 O09.899 expo sure to alcohol 979197921 O35.4XX9 expo sure to drug 644848453 O35.5XX9 [id number] Malka VANEGAS, [facility] - [facility] [place] POS [address] [place] [address] 11/24/2019 14:02:44 11/24/2019 15:47:27 Advanced maternal age 069638004 O09.899 Z3A.24 [id number] Malka VANEGAS, [facility] - [facility] [place] POS [address] [place] [address] 12/08/2019 13:27:12 12/08/2019 15:22:20 Gestational diabetes mellitus 57690705 O24.410 [id number] [facility] [employer] [facility] [place] POS [address] [place] [address] 12/17/2019 17:23:54 12/17/2019 17:24:51 [id number] Dickson Langford MD [facility] [employer] [facility] [facility] POS [address] [place] [address] 24106-678 5 12/22/2019 08:47:44 12/22/2019 11:38:14 Glucose tolerance test outside reference range 136920265 R73.09 Gestationa l diabetes mellitus 28078216 O24.410 [id number] Malka VANEGAS, [facility] - [facility] SCH[facility] [place] POS [address] [place] [address] 14553-157 7 12/22/2019 15:50:31 12/23/2019 10:14:48 Gestational diabetes mellitus 14817080 O24.410 Advanced m aternal age 773220186 O09.899 Z3A.24 High risk care 770972627 O09.93 [id number] Malka VANEGAS, Cali [facility] - [facility] SCH[facility] [place] POS [address] [place] [address] 06794-473 7 01/05/2020 15:26:25 01/06/2020 12:30:32 Advanced maternal age 018521815 O09.899 Z3A.24 Gestationa l diabetes mellitus 70240619 O24.410 High risk care 294727662 O09.93 [id number] [facility] [place] POS [address] [place] [address] 9 01/08/2020 14:24:24 01/08/2020 15:19:50 [id number] Malka VANEGAS, [facility] - [facility] SCH[facility] [place] POS [address] [place] [address] [id number] 7 01/12/2020 16:46:10 01/13/2020 11:56:27 Gestational diabetes mellitus 93286960 O24.410 Advanced m aternal age 846169647 O09.899 O09.893 [id number] Dickson Langford MD [facility] POS [address] [place] [address] 5 01/19/2020 14:10:41 01/19/2020 16:23:42 Gestational diabetes mellitus 81155073 O24.410 Gestationa l diabetes mellitus class A2 79479875 O24.414 [id number] Malka VANEGAS, Cali [facility] - [facility] SCH[facility] [place] POS [address] [place] [address] [id number] 7 01/20/2020 12:35:55 01/20/2020 14:26:45 Multigravida of advanced maternal age 116814736 O09.523 Z3A.33 [id number] Rashad VANEGAS, Milly Reyes [facility] E[facility] POS [address] [place] [address] 92947-196 5 01/26/2020 14:26:55 01/26/2020 16:06:59 Gestational diabetes mellitus 67558029 O24.414 [id number] Jimmy VANEGAS, Madi Stevens [facility] [place] POS [address] [place] [address] 7 01/30/2020 10:58:36 01/30/2020 11:58:25 Routine care 012888697 Z34.83 Gestationa l diabetes mellitus class A2 58012406 O24.414 [id number] Primitivo VANEGAS, Dickson [facility] POS [address] [place] [address] 21230-554 5 02/02/2020 14:26:03 02/02/2020 17:02:34 Advanced maternal age 353347061 O09.899 Gestationa l diabetes mellitus 81382780 O24.410 [id number] Milly Solorzano MD [facility] POS [address] [place] [address] 85076-912 5 02/09/2020 14:24:13 02/09/2020 16:17:05 Advanced maternal age 367841890 O09.523 Gestationa l diabetes mellitus class A2 39079670 O24.414 [id number] Malka VANEGAS, Cali Carter [facility] [place] POS [address] [place] [address] 7 02/11/2020 12:30:53 02/11/2020 16:21:25 Advanced maternal age 915822593 O09.523 Z3A.36 Venereal d isease screening 047010310 Z11.3 Gestationa l diabetes mellitus 98123902 O24.410 [id number] Dickson Langford MD [facility] POS [address] [place] [address] 82222-788 5 02/16/2020 14:33:12 02/16/2020 16:13:30 Gestational diabetes mellitus 03983749 O24.410 [id number] Malka VANEGAS, [facility] - [facility] SCH[facility] [place] POS [address] [place] [address] 02382-831 7 02/18/2020 14:57:15 02/18/2020 15:58:43 Routine care 336328964 Z34.81 Z3A.08 Advanced m aternal age 044628455 O09.523 Z3A.36 Gestationa l diabetes mellitus 84571364 O24.410 [id number] Rashad VANEGAS, Milly Reyes [facility] POS [address] [place] [address] 14068-178 5 02/23/2020 14:31:39 02/23/2020 16:18:32 Gestational diabetes mellitus 77429944 O24.414 [id number] Malka VANEGAS, [facility] - [facility] SCH[facility] [place] POS [address] [place] [address] 13891-745 7 02/25/2020 12:31:57 02/26/2020 10:45:52 Routine care 847983387 Z34.83 Z3A.38 Advanced m aternal age 503303373 O09.523 Z3A.36 Gestationa l diabetes mellitus 20714501 O24.410 [id number] Primitivo VANEGAS, Dickson [facility] POS [address] [place] [address] 31090-486 5 03/01/2020 14:27:44 03/01/2020 15:58:06 Advanced maternal age 403441161 O09.523 O24.414 [id number] Malka VANEGAS, Cali [facility] - [facility] SCH[facility] [place] POS [address] [place] [address] 97430-227 7 03/16/2020 12:11:09 03/18/2020 11:31:10 care 830365323 Z39.0 [id number] Malka VANEGAS, [facility] - [facility]ERIAL SCHEDUL[facility] [place] POS [address] [place] [address] 96802-235 7 04/13/2020 10:55:06 04/13/2020 14:58:26 care 765589046 Z39.2 [id number] Malka VANEGAS, [facility] - [facility]ERIAL SCH[facility]UL[facility] [place] POS [address] [place] [address] 50291-383 7 04/27/2020 16:26:42 05/04/2020 15:07:19 depression 51273080 F53.0 [id number] Salina LOOP TACKER, Sejal [facility] POS [address] [place] [address] 45569-846 7 05/13/2020 09:46:35 05/13/2020 10:31:08 [id number] Salina LOOP TACKER, Sejal [facility] - [facility] POS [address] [place] [address] [id number] 7 05/20/2020 09:48:07 05/20/2020 10:32:23 [id number] Mlaka VANEGAS, Cali Carter [facility] - [facility] [place] POS [address] [place] [address] [id number] 7 05/25/2020 11:11:20 05/25/2020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
[2024-04-24 15:50] LABS: Blood Urea Nitrogen 13 mg/dL (9-16)
[2024-04-24 15:54] LABS: Alanine Aminotransferase 110 U/L (0-31); Albumin Level 4.6 g/dL (3.5-5.0); Anion Gap 11 (12-20); Aspartate Amino Transferase 35 U/L (5-31); Bilirubin Total 1.1 mg/dL (0.0-1.0); Blood Urea Nitrogen 13 mg/dL (9-16); Calcium 9.9 mg/dL (8.4-10.2); Carbon Dioxide 28 mmol/L (22-29); Chloride 104 mmol/L (96-108); Creatinine Clr Calc Pharmacy 96.5; Estimated Glomerular Filt Rate > 60; Glucose Random 102 mg/dL (60-115); Potassium 4.4 mmol/L (3.3-5.1); Sodium 139 mmol/L (135-145)
[2024-04-24 15:57] LABS: Amphetamine Screen Urine Not Detected (Not Detect); Barbiturates, Urine Not Detected (Not Detect); Benzodiazepines Screen Urine Not Detected (Not Detect); Buprenorphine Scr Not Detected (Not Detect); Cannabinoid Screen Urine Not Detected (Not Detect); Cocaine Screen Urine Not Detected (Not Detect); Fentanyl, urine Not Detected (Not Detect); Methadone Screen, Urine Not Detected (Not Detect); Opiate Screen Urine Not Detected (Not Detect); Oxycodone Screen Urine Not Detected (Not Detect); Phencyclidine Screen Urine Not Detected (Not Detect)
[2024-04-24 16:44] LABS: Alkaline Phosphatase 96 U/L (39-117)
[2024-04-24 16:53] VITALS: BP 176/95; PULSE 102
[2024-04-24] MEDS: cloNIDine HCL 0.1 MG TABLET PO (16:55)
--- NOTE | 2024-04-24 19:03 | PC.ADMIT ---
Alice was [place] [facility] [place] CV at 14:45 on 04/24/24 for the treatment of depression. She was meeting with her outpatient provider and expressed that she was having a difficult time due to her cymbalta. Skin check was completed upon arrival to the unit. She denies suicidal and homicidal thoughts and intent. She denies auditory and visual hallucinations. She was tearful but pleasant and cooperative with admission process. She reports feeling overwhelmed with everyday tasks at home. She reports decreased appetite and frequent nightmares. She denies ETOH use and endorses occasional use of THC edibles. She was placed on 15 minute checks for safety.
[2024-04-24 20:00] VITALS: BP 145/86; PULSE 118; RESP 18; TEMP 36.8; O2SAT 98
[2024-04-25 07:54] VITALS: BP 158/86; PULSE 89; RESP 14; TEMP 36.7; O2SAT 98
[2024-04-25 08:30] LABS: MANUAL DIFF FLAG NO
[2024-04-25 08:39] LABS: Basophils Absolute Auto 0.1 X10*3/uL (0.0-0.2); Basophils Percent Auto 0.6 % (0-2); Eosinophils Absolute Auto 0.5 X10*3/uL (0.0-0.4); Hematocrit 36.4 % (37.0-47.0); Hemoglobin 12.8 g/dl (12.0-16.0); Imm Gran Abs Auto 0.04 X10*3/uL (0.00-0.03); Imm Gran Pct Auto 0.5 % (0.0-0.4); Lymphocytes Absolute Auto 2.6 X10*3/uL (1.2-4.9); Lymphocytes Percent Auto 32.2 % (20-40); Mean Corpuscular HGB Conc 35.2 g/dl (31.0-35.0); Mean Corpuscular Hemoglobin 31.3 pg (27.0-33.0); Monocytes Absolute Auto 0.5 X10*3/uL (0.1-1.2); Neutrophils Absolute Auto 4.5 x10*3/uL (2.0-8.3); Neutrophils Percent Auto 54.7 % (45-73); Platelet Count 262 X10*3/uL (160-400); Red Blood Count 4.09 X10*6/uL (4.20-5.50); Red Cell Distribution Width 13.2 % (11.0-16.0); White Blood Count 8.2 X10*3/uL (4.8-10.8)
[2024-04-25 08:55] LABS: Albumin Level 4.1 g/dL (3.5-5.0); Alkaline Phosphatase 79 U/L (39-117); Aspartate Amino Transferase 35 U/L (5-31); Bilirubin Direct 0.3 mg/dL (0.0-0.5); Cholesterol 212 mg/dL (<200); HDL Cholesterol 43 mg/dL (>40); LDL Cholesterol Calculated 121 mg/dL (<100); Total Protein 6.9 g/dL (6.5-8.0); Triglycerides 241 mg/dL (<150)
[2024-04-25 09:09] LABS: Thyroid Stimulating Hormone 1.72 uIU/mL (0.32-4.0)
[2024-04-25 09:11] VITALS: BP 158/86
[2024-04-25] MEDS: Magnesium Oxide 400 MG TABLET PO (09:11)
[2024-04-25] MEDS: lisinopriL 10 MG, hydroCHLOROthiazide 12.5 MG PO (09:11)
[2024-04-25] MEDS: DULoxetine HCl 30 MG CAPSULE.DR 90 MG PO (09:11)
[2024-04-25 09:19] LABS: Alanine Aminotransferase 83 U/L (0-31)
[2024-04-25 09:23] LABS: Folate 8.7 ng/mL (> or = 4.0); Vitamin B12 371 pg/mL (200-900)
--- NOTE | 2024-04-25 09:48 | HO.PSYADMNOT ---
HPI Date of Service: 04/25/24 Chief Complaint: Crisis Sources of Information: patient interviewed, chart reviewed and crisis/core team assessment reviewed HPI Subjective Notes: Conditional Voluntary Narrative: Outpatient Psych Office Note 04/24/24: here today for follow up; mood symptoms and anxiety worse since last visit; not tolerating the increase cymbalta. Her PHQ9 went from 22 to 24 and GAD7 went from 15 to 16. Pt tearful and overwhlemd; very depressed; difficulty speaking; long pauses; reports daily intrusive thoughts of stabbing herself in the neck and head with a knife or any instrument. She says that she would not hurt herslef because of her children but then says that she has thoughts that her family would be better off without her. She says they wouldn't starve because her can cook and her 16 yr old would be able to feed themselves. She reports the thoughts of hurting or killing herslef are every day; she is not sleeping well ; she is often up until 2 am and then sleeps well into the afternoon; she sits for hours staring blankly. She worries every day about her health, her family, finances, the world events. She has no motivation and can' get herself to even cook or get up out bed sometimes. She has tried multiple antidepressants and has not done well with them: prozac, lexapro, wellbutrin, effexor. She deos report episodic good days wheree she is more productive, creative, enegetic and will shop impulsively howeever these onlylast 24 hours or less. Past Psychiatric History: outpt tx since age 22. No IPLOC PAST MEDICTIONS: lexapro- increased anger wellbutrin- very negative/angry zoloft- woorked first time took - did not work on retrial prozac- ok for a bit and then stopped working effexor- excessive weight gain ...... recommend inpatient admission at this time due to level of deprssion and ideas about needing to get something out of her head by puncturing her head with knife or instrument; Pt has SI with plan and verbalizes no intent due to children but then talked about how her children could get along without her. Today: patient presents as very anxious and depressed. Clear criteria for major depressive episode. Sad, no energy, no motivation, no enjoyment in activities she usually enjoys such as spending time with her children and their activities, poor sleep, thoughts of . Reports her main goal is wanting mood to improve so she can function better. We also discussed recent diagnosis of ADD. No active SI. No HI. No psychosis. Regarding medications has been on multiple SSRIs, Effexor and Wellbutrin. Had a very bad reaction to Wellbutrin , with nightmares of harming her family. We discussed potential alternatives for augmenting Cymbalta which was helpful at 90 mg. We discussed mirtazapine, buspirone, aripiprazole or lithium. Risks and benefits discussed. Decided to trial mirtazapine 7.5 mg. Will also trial prazosin 1 mg for sleep and nightmares. Otherwise, Cymbalta lowered from 120 mg down to 90 mg with a view to possibly completely tapering off this on an outpatient basis. Regarding ADD treatment, can pursue management of that with already established outpatient provider. Patient felt supported around evaluation treatment plan. Past Psychiatric History: outpt tx since age 22. No IPLOC PAST MEDICTIONS: lexapro- increased anger wellbutrin- very negative/angry zoloft- woorked first time took - did not work on retrial prozac- ok for a bit and then stopped working effexor- excessive weight gain Medical Evaluation Reviewed: Yes [facility] Medical History Hypertriglyceridemia Positive Tinel's sign Positive Phalen maneuver Cervicalgia HTN (hypertension) Decreased hearing of both ears Environmental and seasonal allergies Tinnitus of both ears Knee pain Excessive daytime sleepiness Loud snoring Vitamin D deficiency Impaired fasting glucose Mixed dyslipidemia Morbid obesity Hiatal hernia with gastroesophageal reflux Family history of premature CAD Annual visit for general adult medical examination with abnormal findings Anxiety and depression Surgical History H/O endoscopy H/O wisdom tooth extraction Social History: and has 3 children age 21, 16, 4. 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 family has moved around a lot due to pt grew up in [facility]. lived with both parents; after her father lost his job they all moved in with grandmother; family experienced severe poverty- very traumatic. no running water, no food, no electricity at times. no telephone, no flushing toilets no lights. Father became ETOHIC and massive heart attack at age 55. Pt has 3 siblings. Trauma History: childhood severe poverty Diagnostics Vital Signs (24Hr): Vital Signs - 24 hr 04/24/24 14:45 04/24/24 16:53 04/24/24 20:00 Temperature 98.2 F 98.3 F Pulse Rate 98 102 H 118 H Respiratory Rate 18 18 Blood Pressure 178/96 H 176/95 H 145/86 H Pulse Oximetry 98 98 Oxygen Delivery Method Room Air Room Air 04/25/24 07:54 04/25/24 09:11 Temperature 98.0 F Pulse Rate 89 Respiratory Rate 14 Blood Pressure 158/86 H 158/86 H Pulse Oximetry 98 Oxygen Delivery Method Room Air BMI result Body Mass Index 46.6 Labs 04/25/24 08:14 04/24/24 14:54 Labs: Laboratory Results - last 48 hr 04/24/24 04/24/24 04/24/24 14:54 14:54 14:57 WBC RBC Hgb Hct MCV MCH MCHC RDW Plt Count MPV Immature Gran % (Auto) Neut % (Auto) Lymph % (Auto) [place] % (Auto) Eos % (Auto) Baso % (Auto) Lymph # (Auto) [place] # (Auto) Eos # (Auto) Baso # (Auto) Abs Immat Gran (auto) Absolute Neuts (auto) Absolute Nucleated RBC Nucleated RBC % (auto) Hold Purple Top SEE NOTE Sodium 139 Potassium 4.4 Chloride 104 Carbon Dioxide 28 Anion Gap 11 L BUN 13 13 Creatinine 0.88 Estim Creat Clear Calc 96.5 Estimated GFR > 60 Random Glucose 102 Calcium 9.9 Total Bilirubin 1.1 H Direct Bilirubin AST 35 H ALT 110 H Alkaline Phosphatase 96 Total Protein 8.0 Albumin 4.6 Triglycerides Cholesterol LDL Cholesterol, Calc HDL Cholesterol Vitamin B12 Folate TSH Free T4 Urine Opiates Screen Ur Buprenorphine Scrn Ur Oxycodone Screen Urine Methadone Screen Urine Fentanyl Screen Ur Barbiturates Screen Ur Phencyclidine Scrn Ur Amphetamines Screen U Benzodiazepines Scrn Urine Cocaine Screen U Marijuana (THC) Screen 04/24/24 04/25/24 15:24 08:14 WBC 8.2 RBC 4.09 L Hgb 12.8 Hct 36.4 L MCV 89.0 MCH 31.3 MCHC 35.2 H RDW 13.2 Plt Count 262 MPV 9.0 L Immature Gran % (Auto) 0.5 H Neut % (Auto) 54.7 Lymph % (Auto) 32.2 [place] % (Auto) 6.0 Eos % (Auto) 6.0 H Baso % (Auto) 0.6 Lymph # (Auto) 2.6 [place] # (Auto) 0.5 Eos # (Auto) 0.5 H Baso # (Auto) 0.1 Abs Immat Gran (auto) 0.04 H Absolute Neuts (auto) 4.5 Absolute Nucleated RBC 0.000 Nucleated RBC % (auto) 0.0 Hold Purple Top Sodium Potassium Chloride Carbon Dioxide Anion Gap BUN Creatinine Estim Creat Clear Calc Estimated GFR Random Glucose Calcium Total Bilirubin 1.0 Direct Bilirubin 0.3 AST 35 H ALT 83 H Alkaline Phosphatase 79 Total Protein 6.9 Albumin 4.1 Triglycerides 241 H Cholesterol 212 H LDL Cholesterol, Calc 121 H HDL Cholesterol 43 Vitamin B12 371 Folate 8.7 TSH 1.72 Free T4 0.80 Urine Opiates Screen Not Detected Ur Buprenorphine Scrn Not Detected Ur Oxycodone Screen Not Detected Urine Methadone Screen Not Detected Urine Fentanyl Screen Not Detected Ur Barbiturates Screen Not Detected Ur Phencyclidine Scrn Not Detected Ur Amphetamines Screen Not Detected U Benzodiazepines Scrn Not Detected Urine Cocaine Screen Not Detected U Marijuana (THC) Screen Not Detected Meds/Allergies Allergies Allergies Allergy/AdvReac Type Severity Reaction Status Date / Time latex AdvReac Mild hives Verified 04/20/24 10:57 Mental Status Exam Mental Status Exam Narrative: Pleasant. Engaged. Hospital clothing. Fair self-care. Organized. Anxious, depressed and tearful. Intermittent thoughts of and self-harm, but nothing active. No HI. No psychosis. Insight and judgment good Assessment & Plan Assessment & Plan (1) Major depressive disorder, recurrent, moderate: Status: Acute Code(s): F33.1 - Major depressive disorder, recurrent, moderate (2) SAMMY (generalized anxiety disorder): Status: Acute Code(s): F41.1 - Generalized anxiety disorder Plan presents with clear major depressive disorder and generalized anxiety disorder. Some benefit from Cymbalta, but not when this was increased to 120 mg. has had other medication trials. We discussed potential alternatives for augmenting Cymbalta which was helpful at 90 mg. We discussed mirtazapine, buspirone, aripiprazole or lithium. Risks and benefits discussed. Decided to trial mirtazapine 7.5 mg. Will also trial prazosin 1 mg for sleep and nightmares. Otherwise, Cymbalta lowered from 120 mg down to 90 mg with a view to possibly completely tapering off this on an outpatient basis. Regarding ADD treatment, can pursue management of that with already established outpatient provider. Patient felt supported around evaluation treatment plan. Patient educated on: diagnosis and medication risk/benefits Informed Consent: understands Reason for continued inpatient stay Substantial Risk for: harm to self Statement Statement: I have reviewed the history and physical and performed a pertinent examination on my patient. No changes have occurred unless specified. If the History and Physical was not performed prior to admission, the Hospitalist's service will be consulted for completing the admission physical. Time Spent With Patient Time: Total time managing care of this patient today ____ minutes.
[2024-04-25] MEDS: Throat Lozenge, Medicated LOZENGE 1 LOZENGE MUCOUS MEM ×2 (10:09→16:19)
[2024-04-25] MEDS: Acetaminophen 325 MG TABLET 650 MG PO ×2 (10:09→16:19)
[2024-04-25 11:15] LABS: Influenza A PCR NEGATIVE (Negative); Influenza B PCR NEGATIVE (Negative); Resp Syncy Virus RNA Qual PCR NEGATIVE (Negative); SARS COV2 PCR INHOUSE NEGATIVE (Negative)
[2024-04-25] MEDS: Mirabegron 50 MG TAB.ER.24H PO (12:08)
--- NOTE | 2024-04-25 16:45 | P.CONHOSP_ITS ---
History of Present Illness Data of Consult Service Date: 04/25/24 Primary Care Provider: Unknown Physician HPI Reason for consult: Admission H&P Pt is a 43-year-old female with a PMH significant for HLD,?overactive bladder, prediabetes, DARON on CPAP, anxiety, and recurrent MDD with severe psychotic features who is admitted to psychiatry unit for increasing depression and SI with plan. Patient initially presented to outpatient therapy session reporting daily intrusive thoughts of needing to ?get something out of her head by stabbing herself with a knife or other instrument. Medical consult for admission H&P. ?Pt denies any acute medical complaints at this time. No fever, chills, nausea, vomiting, abdominal pain. No diarrhea. Denies chest pain/pressure, palpitations. No shortness a breath or difficulty breathing. Denies headache or acute vision changes. Review of Systems 2 Review of Systems: Pt has no acute medical complaints at this time [facility] Medical History Hypertriglyceridemia Positive Tinel's sign Positive Phalen maneuver Cervicalgia HTN (hypertension) Decreased hearing of both ears Environmental and seasonal allergies Tinnitus of both ears Knee pain Excessive daytime sleepiness Loud snoring Vitamin D deficiency Impaired fasting glucose Mixed dyslipidemia Morbid obesity Hiatal hernia with gastroesophageal reflux Family history of premature CAD Annual visit for general adult medical examination with abnormal findings Anxiety and depression Family History Father Substance use disorder Mental health disorder Alcoholism Myocardial infarction acute, Onset Age: 55 Depression Maternal Uncle Testicular cancer Surgical History H/O endoscopy H/O wisdom tooth extraction Social History Household Members: Family Household Members Other:: and 2 children Housing: House Do you presently have visiting nurse or other home services: No Alcohol intake: current Alcohol intake frequency: holidays/special occasions only Patient Tobacco Use Status: Never used Tobacco e-Cigarette/Vaping Use: Never Used Use of substances other than those prescribed or required for medical reasons: Yes Substance Use Type: Marijuana Substance Use Frequency: Monthly Last Used Substance: Unknown Currently Displaying Signs/Symptoms of Drug Intoxication Withdrawal: No Any prior treatment program specific to substance use: No Have you been hit, kicked, punched, or otherwise hurt by someone within the past year? If so, by whom?: No Do you feel safe in your current relationship?: Yes Are you made to feel afraid or neglected: No Advance Directives: No Advance Directives Information Provided: Yes Do you have thoughts of harming others: None Do you have a plan to hurt others: No Plan Recently lost weight without trying: No Eating poorly because of decreased appetite: No Nutrition Risks: No Nutritional Risk Patient : No : No Poor oral hygiene: No Current occupational status: unemployed and other Sexual orientation: Straight/Heterosexual Gender identity: Female Cognitive needs: No Hearing needs: No Vision needs: Yes Meds Allergies Allergy/AdvReac Type Severity Reaction Status Date / Time latex AdvReac Mild hives Verified 04/20/24 10:57 Active Medications: Current Medications Acetaminophen (Acetaminophen 325 Mg Tablet) 650 mg PO Q6H PRN PRN Reason: Headache/Pain Mild Scale (1-3) Last Admin: 04/25/24 16:19 Dose: 650 mg Al Hydroxide/Mg Hydroxide (Magnesium Hydrox/Alum Hydrox 30 Ml Oral.Susp) 30 ml PO Q6H PRN PRN Reason: Heartburn/Nausea Benzocaine (Throat Lozenge, Medicated Lozenge) 1 lozenge MUCOUS MEM Q2H PRN PRN Reason: Sore Throat Last Admin: 04/25/24 16:19 Dose: 1 lozenge Clonidine HCl (Clonidine Hcl 0.1 Mg Tablet) 0.1 mg PO BID PRN; Protocol PRN Reason: Anxiety Last Admin: 04/24/24 16:55 Dose: 0.1 mg Lisinopril 10 mg/ (Hydrochlorothiazide 12.5 mg) 0 mg PO DAILY [facility] Last Admin: 04/25/24 09:11 Dose: 2 tablet Duloxetine HCl (Duloxetine Hcl 30 Mg Capsule.Dr) 90 mg PO DAILY [facility] Last Admin: 04/25/24 09:11 Dose: 90 mg Hydroxyzine HCl (Hydroxyzine Hcl 25 Mg Tablet) 25 mg PO Q6H PRN PRN Reason: Anxiety Last Admin: 04/24/24 21:03 Dose: 25 mg Magnesium Hydroxide (Milk Of Magnesia 30 Ml Oral.Susp) 30 ml PO DAILY PRN PRN Reason: Constipation Magnesium Oxide (Magnesium Oxide 400 Mg Tablet) 400 mg PO DAILY [facility] Last Admin: 04/25/24 09:11 Dose: 400 mg Mirabegron (Mirabegron 50 Mg Tab.Er.24h) 50 mg PO DAILY [facility] Last Admin: 04/25/24 12:08 Dose: 50 mg Mirtazapine (Mirtazapine 7.5 Mg Tablet) 7.5 mg PO BEDTIME BARRIE Nicotine (Nicotine 21 Mg Patch.Td24) 21 mg TRANSDERMA DAILY [facility] Last Admin: 04/25/24 09:12 Dose: Not Given Nicotine Polacrilex (Nicotine Polacrilex 2 Mg Gum) 4 mg BUCCAL Q2H PRN PRN Reason: Nicotine Cravings Prazosin HCl (Prazosin Hcl 1 Mg Capsule) 1 mg PO BEDTIME BARRIE; Protocol Pseudoephedrine HCl (Pseudoephedrine Hcl 30 Mg Tablet) 30 mg PO Q4H PRN PRN Reason: congestion Trazodone HCl (Trazodone Hcl 50 Mg Tablet) 50 mg PO BEDTIME MRX1 PRN PRN Reason: Insomnia Physical Exam 2 Vital Signs and Narrative: Vital Signs: Last Vital Signs Temp 98.0 F 04/25/24 07:54 Pulse 89 04/25/24 07:54 Resp 14 04/25/24 07:54 BP 158/86 H 04/25/24 09:11 Pulse Ox 98 04/25/24 07:54 O2 Del Method Room Air 04/25/24 07:54 BMI result Body Mass Index 46.6 General: AOx3, no acute distress Resp: CTA bilaterally CVS: S1, S2, RRR GI: +BS, NT, no distention Skin: Warm, dry Neuro: Cranial nerves II-XII grossly intact bilaterally. Motor grossly intact bilaterally Extremities: No edema Results Labs 04/25/24 08:14 04/24/24 14:54 Labs: Laboratory Results - last 24 hr 04/24/24 04/25/24 04/25/24 14:54 08:14 10:12 MCV 89.0 MCH 31.3 MCHC 35.2 H RDW 13.2 Plt Count 262 MPV 9.0 L Immature Gran % (Auto) 0.5 H Neut % (Auto) 54.7 Lymph % (Auto) 32.2 [place] % (Auto) 6.0 Eos % (Auto) 6.0 H Baso % (Auto) 0.6 Lymph # (Auto) 2.6 [place] # (Auto) 0.5 Eos # (Auto) 0.5 H Baso # (Auto) 0.1 Abs Immat Gran (auto) 0.04 H Absolute Neuts (auto) 4.5 Absolute Nucleated RBC 0.000 Nucleated RBC % (auto) 0.0 Total Bilirubin 1.0 Direct Bilirubin 0.3 AST 35 H ALT 83 H Alkaline Phosphatase 96 79 Total Protein 6.9 Albumin 4.1 Triglycerides 241 H Cholesterol 212 H LDL Cholesterol, Calc 121 H HDL Cholesterol 43 Vitamin B12 371 Folate 8.7 TSH 1.72 Free T4 0.80 Influenza Type A (PCR) NEGATIVE Influenza Type B (PCR) NEGATIVE RSV RNA Qual (PCR) NEGATIVE SARS-CoV-2 RNA (RT-PCR) NEGATIVE Assessment and Plan (1) Medical clearance for psychiatric admission: Status: Acute Plan Pt is a 43-year-old female with a PMH significant for HLD,?overactive bladder, prediabetes, DARON on CPAP, anxiety, and recurrent MDD with severe psychotic features who is admitted to psychiatry unit for increasing depression and SI with plan. Patient initially presented to outpatient therapy session reporting daily intrusive thoughts of needing to ?get something out of her head by stabbing herself with a knife or other instrument. Medical consult for admission H&P. ? Mood disorder Plan as per Psychiatry Hypertension Continue lisinopril, hydrochlorothiazide HLD Diet controlled Encourage low-fat diet Prediabetes Not on home meds Encouraged diabetic diet and diabetic snacking Overactive bladder Continue Myrbetriq DARON CPAP at night Thank you for allowing us to participate in the care of this patient. Signing off at this time. Please re-consult if any acute complaints or issues arise.
[2024-04-25 22:14] VITALS: BP 145/91; PULSE 88; RESP 18; TEMP 36.5; O2SAT 98
[2024-04-25 22:28] VITALS: BP 145/91
[2024-04-25] MEDS: Prazosin HCL 1 MG CAPSULE PO (22:28)
[2024-04-25] MEDS: Mirtazapine 7.5 MG TABLET PO (22:29)
[2024-04-26 08:00] VITALS: BP 118/74; PULSE 109; RESP 16; TEMP 36.4; O2SAT 97
--- NOTE | 2024-04-26 08:32 | HO.PSYCHPN ---
Subjective Subjective Date of Service: 04/26/24 Reason For Visit: Crisis Interim History: met with patient. Discussed with Nursing. In the milieu today and engaged well with peers. Reports feeling like anxiety is lessening and mood is improving. Feeling positive is able to engage with peers is normally introverted. Feeling the medications are helpful. Did have some nightmares still last night and we discussed increasing prazosin to 2 mg. looking for to a visit from her and adult son later and thankful that her is supportive. No thoughts of today. No agitation psychosis. Review of Systems Review of Systems unremarkable Mental Status Exam Mental Status Exam Narrative: Pleasant. Engaged. Hospital clothing. Fair self-care. Organized. Much brighter in affect. No thoughts of . Hopeful. No HI. No psychosis. Insight and judgment good Diagnostics Vital Signs (24Hr): Vital Signs - 24 hr 04/25/24 09:11 04/25/24 22:14 04/25/24 22:28 Temperature 97.7 F Pulse Rate 88 Respiratory Rate 18 Blood Pressure 158/86 H 145/91 H 145/91 H Pulse Oximetry 98 Oxygen Delivery Method Room Air 04/26/24 08:00 Temperature 97.5 F Pulse Rate 109 H Respiratory Rate 16 Blood Pressure 118/74 Pulse Oximetry 97 Oxygen Delivery Method Room Air BMI result Body Mass Index 46.6 Labs 04/25/24 08:14 04/24/24 14:54 Labs: Laboratory Results - last 48 hr 04/24/24 04/24/24 04/24/24 14:54 14:54 14:57 WBC RBC Hgb Hct MCV MCH MCHC RDW Plt Count MPV Immature Gran % (Auto) Neut % (Auto) Lymph % (Auto) Jenkins % (Auto) Eos % (Auto) Baso % (Auto) Lymph # (Auto) Jenkins # (Auto) Eos # (Auto) Baso # (Auto) Abs Immat Gran (auto) Absolute Neuts (auto) Absolute Nucleated RBC Nucleated RBC % (auto) Hold Purple Top SEE NOTE Sodium 139 Potassium 4.4 Chloride 104 Carbon Dioxide 28 Anion Gap 11 L BUN 13 13 Creatinine 0.88 Estim Creat Clear Calc 96.5 Estimated GFR > 60 Random Glucose 102 Calcium 9.9 Total Bilirubin 1.1 H Direct Bilirubin AST 35 H ALT 110 H Alkaline Phosphatase 96 Total Protein 8.0 Albumin 4.6 Triglycerides Cholesterol LDL Cholesterol, Calc HDL Cholesterol Vitamin B12 Folate TSH Free T4 Urine Opiates Screen Ur Buprenorphine Scrn Ur Oxycodone Screen Urine Methadone Screen Urine Fentanyl Screen Ur Barbiturates Screen Ur Phencyclidine Scrn Ur Amphetamines Screen U Benzodiazepines Scrn Urine Cocaine Screen U Marijuana (THC) Screen Influenza Type A (PCR) Influenza Type B (PCR) RSV RNA Qual (PCR) SARS-CoV-2 RNA (RT-PCR) 04/24/24 04/25/24 04/25/24 15:24 08:14 10:12 WBC 8.2 RBC 4.09 L Hgb 12.8 Hct 36.4 L MCV 89.0 MCH 31.3 MCHC 35.2 H RDW 13.2 Plt Count 262 MPV 9.0 L Immature Gran % (Auto) 0.5 H Neut % (Auto) 54.7 Lymph % (Auto) 32.2 Jenkins % (Auto) 6.0 Eos % (Auto) 6.0 H Baso % (Auto) 0.6 Lymph # (Auto) 2.6 Jenkins # (Auto) 0.5 Eos # (Auto) 0.5 H Baso # (Auto) 0.1 Abs Immat Gran (auto) 0.04 H Absolute Neuts (auto) 4.5 Absolute Nucleated RBC 0.000 Nucleated RBC % (auto) 0.0 Hold Purple Top Sodium Potassium Chloride Carbon Dioxide Anion Gap BUN Creatinine Estim Creat Clear Calc Estimated GFR Random Glucose Calcium Total Bilirubin 1.0 Direct Bilirubin 0.3 AST 35 H ALT 83 H Alkaline Phosphatase 79 Total Protein 6.9 Albumin 4.1 Triglycerides 241 H Cholesterol 212 H LDL Cholesterol, Calc 121 H HDL Cholesterol 43 Vitamin B12 371 Folate 8.7 TSH 1.72 Free T4 0.80 Urine Opiates Screen Not Detected Ur Buprenorphine Scrn Not Detected Ur Oxycodone Screen Not Detected Urine Methadone Screen Not Detected Urine Fentanyl Screen Not Detected Ur Barbiturates Screen Not Detected Ur Phencyclidine Scrn Not Detected Ur Amphetamines Screen Not Detected U Benzodiazepines Scrn Not Detected Urine Cocaine Screen Not Detected U Marijuana (THC) Screen Not Detected Influenza Type A (PCR) NEGATIVE Influenza Type B (PCR) NEGATIVE RSV RNA Qual (PCR) NEGATIVE SARS-CoV-2 RNA (RT-PCR) NEGATIVE Medications Medications Current Medications Acetaminophen (Acetaminophen 325 Mg Tablet) 650 mg PO Q6H PRN PRN Reason: Headache/Pain Mild Scale (1-3) Last Admin: 04/25/24 16:19 Dose: 650 mg Al Hydroxide/Mg Hydroxide (Magnesium Hydrox/Alum Hydrox 30 Ml Oral.Susp) 30 ml PO Q6H PRN PRN Reason: Heartburn/Nausea Benzocaine (Throat Lozenge, Medicated Lozenge) 1 lozenge MUCOUS MEM Q2H PRN PRN Reason: Sore Throat Last Admin: 04/25/24 16:19 Dose: 1 lozenge Clonidine HCl (Clonidine Hcl 0.1 Mg Tablet) 0.1 mg PO BID PRN; Protocol PRN Reason: Anxiety Last Admin: 04/24/24 16:55 Dose: 0.1 mg Lisinopril 10 mg/ (Hydrochlorothiazide 12.5 mg) 0 mg PO DAILY [facility] Last Admin: 04/25/24 09:11 Dose: 2 tablet Duloxetine HCl (Duloxetine Hcl 30 Mg Capsule.Dr) 90 mg PO DAILY [facility] Last Admin: 04/25/24 09:11 Dose: 90 mg Hydroxyzine HCl (Hydroxyzine Hcl 25 Mg Tablet) 25 mg PO Q6H PRN PRN Reason: Anxiety Last Admin: 04/24/24 21:03 Dose: 25 mg Magnesium Hydroxide (Milk Of Magnesia 30 Ml Oral.Susp) 30 ml PO DAILY PRN PRN Reason: Constipation Magnesium Oxide (Magnesium Oxide 400 Mg Tablet) 400 mg PO DAILY [facility] Last Admin: 04/25/24 09:11 Dose: 400 mg Mirabegron (Mirabegron 50 Mg Tab.Er.24h) 50 mg PO DAILY [facility] Last Admin: 04/25/24 12:08 Dose: 50 mg Mirtazapine (Mirtazapine 7.5 Mg Tablet) 7.5 mg PO BEDTIME [facility] Last Admin: 04/25/24 22:29 Dose: 7.5 mg Nicotine (Nicotine 21 Mg Patch.Td24) 21 mg TRANSDERMA DAILY [facility] Last Admin: 04/25/24 09:12 Dose: Not Given Nicotine Polacrilex (Nicotine Polacrilex 2 Mg Gum) 4 mg BUCCAL Q2H PRN PRN Reason: Nicotine Cravings Prazosin HCl (Prazosin Hcl 1 Mg Capsule) 1 mg PO BEDTIME [facility]; Protocol Last Admin: 04/25/24 22:28 Dose: 1 mg Pseudoephedrine HCl (Pseudoephedrine Hcl 30 Mg Tablet) 30 mg PO Q4H PRN PRN Reason: congestion Trazodone HCl (Trazodone Hcl 50 Mg Tablet) 50 mg PO BEDTIME MRX1 PRN PRN Reason: Insomnia Allergies Allergies Allergy/AdvReac Type Severity Reaction Status Date / Time latex AdvReac Mild hives Verified 04/20/24 10:57 Assessment & Plan Assessment & Plan (1) Medical clearance for psychiatric admission: Status: Acute Code(s): Z00.8 - Encounter for other general examination (2) Major depressive disorder, recurrent, moderate: Status: Acute Code(s): F33.1 - Major depressive disorder, recurrent, moderate (3) SAMMY (generalized anxiety disorder): Status: Acute Code(s): F41.1 - Generalized anxiety disorder Plan presents with clear major depressive disorder and generalized anxiety disorder. Some benefit from Cymbalta, but not when this was increased to 120 mg. has had other medication trials. We discussed potential alternatives for augmenting Cymbalta which was helpful at 90 mg. We discussed mirtazapine, buspirone, aripiprazole or lithium. Risks and benefits discussed. Decided to trial mirtazapine 7.5 mg. Will also trial prazosin 1 mg for sleep and nightmares. Otherwise, Cymbalta lowered from 120 mg down to 90 mg with a view to possibly completely tapering off this on an outpatient basis. Regarding ADD treatment, can pursue management of that with already established outpatient provider. Patient felt supported around evaluation treatment plan. 04/26/2024: Increase prazosin to 2 mg Reason for continued inpatient stay Substantial Risk for: harm to self Time Spent With Patient Time: Total time managing care of this patient today ____ minutes.
[2024-04-26] MEDS: DULoxetine HCl 30 MG CAPSULE.DR 90 MG PO (08:41)
[2024-04-26] MEDS: Magnesium Oxide 400 MG TABLET PO (08:41)
[2024-04-26] MEDS: Mirabegron 50 MG TAB.ER.24H PO (08:41)
[2024-04-26 08:42] VITALS: BP 118/74
[2024-04-26] MEDS: lisinopriL 10 MG, hydroCHLOROthiazide 12.5 MG PO (08:42)
[2024-04-26] MEDS: Throat Lozenge, Medicated LOZENGE 1 LOZENGE MUCOUS MEM (08:42)
[2024-04-26] MEDS: Pseudoephedrine HCL 30 MG TABLET PO (08:48)
[2024-04-26] MEDS: Acetaminophen 325 MG TABLET 650 MG PO (18:34)
[2024-04-26] MEDS: Ibuprofen 600 MG TABLET PO (22:37)
[2024-04-26] MEDS: Mirtazapine 7.5 MG TABLET PO (22:37)
[2024-04-26 22:42] VITALS: BP 139/70; PULSE 103; RESP 18; TEMP 36.5; O2SAT 98
[2024-04-26] MEDS: Prazosin HCL 1 MG CAPSULE 2 MG PO (22:44)
[2024-04-27 07:55] VITALS: BP 106/51; PULSE 85; TEMP 36.4; O2SAT 92
[2024-04-27] MEDS: Pseudoephedrine HCL 30 MG TABLET PO (09:43)
[2024-04-27] MEDS: Mirabegron 50 MG TAB.ER.24H PO (09:44)
[2024-04-27] MEDS: lisinopriL 10 MG, hydroCHLOROthiazide 12.5 MG PO (09:44)
[2024-04-27] MEDS: DULoxetine HCl 30 MG CAPSULE.DR 90 MG PO (09:44)
[2024-04-27] MEDS: Magnesium Oxide 400 MG TABLET PO (09:45)
--- NOTE | 2024-04-27 15:19 | HO.PSYCHPN ---
Subjective Subjective Date of Service: 04/27/24 Reason For Visit: Crisis Subjective Notes: Conditional Voluntary Interim History: Active on unit, attending groups. Patient reports she feels the depression decreasing with the change in Abilify and starting the prozosin ; pt stated, I haven't had any thoughts of self harm since yesterday. I'm feeling less like I'm trapped in a box. I'm able to get out of bed, shower and eat . She reports not having any nightmares last night. denies SI/HI/VH/AH. If she continues to improve, pt would like to be discharged home on Saturday. Medication Compliance: Yes Side effects from medications: No Attending Groups: Yes Review of Systems Constitutional: Reports as per HPI Eyes: Reports as per HPI Reports as per HPI Cardiovascular: Reports as per HPI Respiratory: Reports as per HPI Gastrointestinal: Reports as per HPI Genitourinary: Reports as per HPI Musculoskeletal: Reports as per HPI Skin/Breast: Reports as per HPI Reports as per HPI Psychiatric: Reports as per HPI Endocrine: Reports as per HPI Hematologic/Lymphatic: Reports as per HPI Allergic/Immunologic: Reports as per HPI Mental Status Exam Mental Status Exam Narrative: Pt is alert and oriented; behavior is cooperative and calm; dressed in casual attire; mood is described as improving ; eye contact appropriate; Speech is normal rate, volume and not pressured; thought process is organized and goal directed; Thought content is on tx; otherwise pertinent to relevant topics and without any delusional content, paranoid ideations or grandiosity; denies SI/HI/VH/AH. Diagnostics Vital Signs (24Hr): Vital Signs - 24 hr 04/26/24 22:42 04/27/24 07:55 Temperature 97.7 F 97.5 F Pulse Rate 103 H 85 Respiratory Rate 18 Blood Pressure 139/70 106/51 L Pulse Oximetry 98 92 Oxygen Delivery Method Room Air Room Air BMI result Body Mass Index 46.6 Labs 04/25/24 08:14 04/24/24 14:54 Medications Medications Current Medications Acetaminophen (Acetaminophen 325 Mg Tablet) 650 mg PO Q6H PRN PRN Reason: Headache/Pain Mild Scale (1-3) Last Admin: 04/26/24 18:34 Dose: 650 mg Al Hydroxide/Mg Hydroxide (Magnesium Hydrox/Alum Hydrox 30 Ml Oral.Susp) 30 ml PO Q6H PRN PRN Reason: Heartburn/Nausea Benzocaine (Throat Lozenge, Medicated Lozenge) 1 lozenge MUCOUS MEM Q2H PRN PRN Reason: Sore Throat Last Admin: 04/26/24 08:42 Dose: 1 lozenge Clonidine HCl (Clonidine Hcl 0.1 Mg Tablet) 0.1 mg PO BID PRN; Protocol PRN Reason: Anxiety Last Admin: 04/24/24 16:55 Dose: 0.1 mg Lisinopril 10 mg/ (Hydrochlorothiazide 12.5 mg) 0 mg PO DAILY [facility] Last Admin: 04/27/24 09:44 Dose: 12.5 tablet Duloxetine HCl (Duloxetine Hcl 30 Mg Capsule.Dr) 90 mg PO DAILY [facility] Last Admin: 04/27/24 09:44 Dose: 90 mg Hydroxyzine HCl (Hydroxyzine Hcl 25 Mg Tablet) 25 mg PO Q6H PRN PRN Reason: Anxiety Last Admin: 04/24/24 21:03 Dose: 25 mg Ibuprofen (Ibuprofen 600 Mg Tablet) 600 mg PO Q8H PRN PRN Reason: Pain, Moderate(Pain Scale 4-6) Last Admin: 04/26/24 22:37 Dose: 600 mg Magnesium Hydroxide (Milk Of Magnesia 30 Ml Oral.Susp) 30 ml PO DAILY PRN PRN Reason: Constipation Magnesium Oxide (Magnesium Oxide 400 Mg Tablet) 400 mg PO DAILY [facility] Last Admin: 04/27/24 09:45 Dose: 400 mg Mirabegron (Mirabegron 50 Mg Tab.Er.24h) 50 mg PO DAILY [facility] Last Admin: 04/27/24 09:44 Dose: 50 mg Mirtazapine (Mirtazapine 7.5 Mg Tablet) 7.5 mg PO BEDTIME [facility] Last Admin: 04/26/24 22:37 Dose: 7.5 mg Nicotine (Nicotine 21 Mg Patch.Td24) 21 mg TRANSDERMA DAILY [facility] Last Admin: 04/27/24 12:08 Dose: Not Given Nicotine Polacrilex (Nicotine Polacrilex 2 Mg Gum) 4 mg BUCCAL Q2H PRN PRN Reason: Nicotine Cravings Prazosin HCl (Prazosin Hcl 1 Mg Capsule) 2 mg PO BEDTIME [facility]; Protocol Last Admin: 04/26/24 22:44 Dose: 2 mg Pseudoephedrine HCl (Pseudoephedrine Hcl 30 Mg Tablet) 30 mg PO Q4H PRN PRN Reason: congestion Last Admin: 04/27/24 09:43 Dose: 30 mg Trazodone HCl (Trazodone Hcl 50 Mg Tablet) 50 mg PO BEDTIME MRX1 PRN PRN Reason: Insomnia Allergies Allergies Allergy/AdvReac Type Severity Reaction Status Date / Time latex AdvReac Mild hives Verified 04/20/24 10:57 Assessment & Plan Assessment & Plan (1) Major depressive disorder, recurrent, moderate: Status: Acute Code(s): F33.1 - Major depressive disorder, recurrent, moderate (2) SAMMY (generalized anxiety disorder): Status: Acute Code(s): F41.1 - Generalized anxiety disorder Plan presents with clear major depressive disorder and generalized anxiety disorder. Some benefit from Cymbalta, but not when this was increased to 120 mg. has had other medication trials. We discussed potential alternatives for augmenting Cymbalta which was helpful at 90 mg. We discussed mirtazapine, buspirone, aripiprazole or lithium. Risks and benefits discussed. Decided to trial mirtazapine 7.5 mg. Will also trial prazosin 1 mg for sleep and nightmares. Otherwise, Cymbalta lowered from 120 mg down to 90 mg with a view to possibly completely tapering off this on an outpatient basis. Regarding ADD treatment, can pursue management of that with already established outpatient provider. Patient felt supported around evaluation treatment plan. 04/26/2024: Increase prazosin to 2 mg 04/27: Active on unit, attending groups. Patient reports she feels the depression decreasing with the change in Abilify and starting the prozosin ; pt stated, I haven't had any thoughts of self harm since yesterday. I'm feeling less like I'm trapped in a box. I'm able to get out of bed, shower and eat . She reports not having any nightmares last night. denies SI/HI/VH/AH. If she continues to improve, pt would like to be discharged home on Saturday. Continue current tx plan. Patient educated on: diagnosis, medication risk/benefits and therapeutic strategies Reason for continued inpatient stay Substantial Risk for: med/psych decompensation Time Spent With Patient Time: Total time managing care of this patient today _20___ minutes.
[2024-04-27] MEDS: Ondansetron ODT 8 MG TAB.RAPDIS TRANSLINGU (15:54)
[2024-04-27] MEDS: Acetaminophen 325 MG TABLET 650 MG PO (16:02)
[2024-04-27 20:00] VITALS: BP 146/87; PULSE 104; RESP 16; TEMP 36.9; O2SAT 98
[2024-04-27 23:09] VITALS: BP 134/78
[2024-04-27] MEDS: Prazosin HCL 1 MG CAPSULE 2 MG PO (23:09)
[2024-04-27] MEDS: Mirtazapine 7.5 MG TABLET PO (23:09)
[2024-04-28 08:00] VITALS: BP 138/84; PULSE 102; RESP 18; TEMP 36.5; O2SAT 95
[2024-04-28] MEDS: Pseudoephedrine HCL 30 MG TABLET PO ×2 (09:02→14:09)
[2024-04-28 09:06] VITALS: BP 138/84
[2024-04-28] MEDS: lisinopriL 10 MG, hydroCHLOROthiazide 12.5 MG PO (09:06)
[2024-04-28] MEDS: Mirabegron 50 MG TAB.ER.24H PO (09:09)
[2024-04-28] MEDS: DULoxetine HCl 30 MG CAPSULE.DR 90 MG PO (09:09)
[2024-04-28] MEDS: Magnesium Oxide 400 MG TABLET PO (09:09)
--- NOTE | 2024-04-28 11:08 | HO.PSYCHPN ---
Subjective Subjective Date of Service: 04/28/24 Reason For Visit: Crisis Subjective Notes: Conditional Voluntary Interim History: Active on unit, attending groups. Patient reports doing well today; pt reports she is looking forward to discharging tomorrow. denies SI/HI/VH/AH. She plans on following up with her outpatient providers. Medication Compliance: Yes Side effects from medications: No Attending Groups: Yes Review of Systems Constitutional: Reports as per HPI Eyes: Reports as per HPI Reports as per HPI Cardiovascular: Reports as per HPI Respiratory: Reports as per HPI Gastrointestinal: Reports as per HPI Musculoskeletal: Reports as per HPI Skin/Breast: Reports as per HPI Reports as per HPI Psychiatric: Reports as per HPI Endocrine: Reports as per HPI Hematologic/Lymphatic: Reports as per HPI Allergic/Immunologic: Reports as per HPI Mental Status Exam Mental Status Exam Narrative: Pt is alert and oriented; behavior is cooperative and calm; dressed in casual attire; mood is described as good ; eye contact appropriate; Speech is normal rate, volume and not pressured; thought process is organized and goal directed; Thought content is on tx; otherwise pertinent to relevant topics and without any delusional content, paranoid ideations or grandiosity; denies SI/HI/VH/AH. Diagnostics Vital Signs (24Hr): Vital Signs - 24 hr 04/27/24 20:00 04/27/24 23:09 04/28/24 08:00 Temperature 98.5 F 97.7 F Pulse Rate 104 H 102 H Respiratory Rate 16 18 Blood Pressure 146/87 H 134/78 138/84 Pulse Oximetry 98 95 Oxygen Delivery Method Room Air Room Air 04/28/24 09:06 Temperature Pulse Rate Respiratory Rate Blood Pressure 138/84 Pulse Oximetry Oxygen Delivery Method BMI result Body Mass Index 46.6 Labs 04/25/24 08:14 04/24/24 14:54 Medications Medications Current Medications Acetaminophen (Acetaminophen 325 Mg Tablet) 650 mg PO Q6H PRN PRN Reason: Headache/Pain Mild Scale (1-3) Last Admin: 04/27/24 16:02 Dose: 650 mg Al Hydroxide/Mg Hydroxide (Magnesium Hydrox/Alum Hydrox 30 Ml Oral.Susp) 30 ml PO Q6H PRN PRN Reason: Heartburn/Nausea Benzocaine (Throat Lozenge, Medicated Lozenge) 1 lozenge MUCOUS MEM Q2H PRN PRN Reason: Sore Throat Last Admin: 04/26/24 08:42 Dose: 1 lozenge Clonidine HCl (Clonidine Hcl 0.1 Mg Tablet) 0.1 mg PO BID PRN; Protocol PRN Reason: Anxiety Last Admin: 04/24/24 16:55 Dose: 0.1 mg Lisinopril 10 mg/ (Hydrochlorothiazide 12.5 mg) 0 mg PO DAILY [facility] Last Admin: 04/28/24 09:06 Dose: 2 tablet Duloxetine HCl (Duloxetine Hcl 30 Mg Capsule.Dr) 90 mg PO DAILY [facility] Last Admin: 04/28/24 09:09 Dose: 90 mg Hydroxyzine HCl (Hydroxyzine Hcl 25 Mg Tablet) 25 mg PO Q6H PRN PRN Reason: Anxiety Last Admin: 04/24/24 21:03 Dose: 25 mg Ibuprofen (Ibuprofen 600 Mg Tablet) 600 mg PO Q8H PRN PRN Reason: Pain, Moderate(Pain Scale 4-6) Last Admin: 04/26/24 22:37 Dose: 600 mg Magnesium Hydroxide (Milk Of Magnesia 30 Ml Oral.Susp) 30 ml PO DAILY PRN PRN Reason: Constipation Magnesium Oxide (Magnesium Oxide 400 Mg Tablet) 400 mg PO DAILY [facility] Last Admin: 04/28/24 09:09 Dose: 400 mg Mirabegron (Mirabegron 50 Mg Tab.Er.24h) 50 mg PO DAILY [facility] Last Admin: 04/28/24 09:09 Dose: 50 mg Mirtazapine (Mirtazapine 7.5 Mg Tablet) 7.5 mg PO BEDTIME [facility] Last Admin: 04/27/24 23:09 Dose: 7.5 mg Nicotine (Nicotine 21 Mg Patch.Td24) 21 mg TRANSDERMA DAILY [facility] Last Admin: 04/28/24 09:13 Dose: Not Given Nicotine Polacrilex (Nicotine Polacrilex 2 Mg Gum) 4 mg BUCCAL Q2H PRN PRN Reason: Nicotine Cravings Ondansetron HCl (Ondansetron Odt 8 Mg Tab.Rapdis) 8 mg TRANSLINGU Q12H PRN PRN Reason: Nausea and Vomiting Last Admin: 04/27/24 15:54 Dose: 8 mg Prazosin HCl (Prazosin Hcl 1 Mg Capsule) 2 mg PO BEDTIME [facility]; Protocol Last Admin: 04/27/24 23:09 Dose: 2 mg Pseudoephedrine HCl (Pseudoephedrine Hcl 30 Mg Tablet) 30 mg PO Q4H PRN PRN Reason: congestion Last Admin: 04/28/24 09:02 Dose: 30 mg Sodium Chloride (Sodium Chloride 0.65 % Nasal 44 Ml Sprbtl) 1 spray NOSTRIL-B Q1H PRN PRN Reason: Congestion Trazodone HCl (Trazodone Hcl 50 Mg Tablet) 50 mg PO BEDTIME MRX1 PRN PRN Reason: Insomnia Allergies Allergies Allergy/AdvReac Type Severity Reaction Status Date / Time latex AdvReac Mild hives Verified 04/20/24 10:57 Assessment & Plan Assessment & Plan (1) Major depressive disorder, recurrent, moderate: Status: Acute Code(s): F33.1 - Major depressive disorder, recurrent, moderate (2) SAMMY (generalized anxiety disorder): Status: Acute Code(s): F41.1 - Generalized anxiety disorder Plan presents with clear major depressive disorder and generalized anxiety disorder. Some benefit from Cymbalta, but not when this was increased to 120 mg. has had other medication trials. We discussed potential alternatives for augmenting Cymbalta which was helpful at 90 mg. We discussed mirtazapine, buspirone, aripiprazole or lithium. Risks and benefits discussed. Decided to trial mirtazapine 7.5 mg. Will also trial prazosin 1 mg for sleep and nightmares. Otherwise, Cymbalta lowered from 120 mg down to 90 mg with a view to possibly completely tapering off this on an outpatient basis. Regarding ADD treatment, can pursue management of that with already established outpatient provider. Patient felt supported around evaluation treatment plan. 04/26/2024: Increase prazosin to 2 mg 04/27: Active on unit, attending groups. Patient reports she feels the depression decreasing with the change in Abilify and starting the prozosin ; pt stated, I haven't had any thoughts of self harm since yesterday. I'm feeling less like I'm trapped in a box. I'm able to get out of bed, shower and eat . She reports not having any nightmares last night. denies SI/HI/VH/AH. If she continues to improve, pt would like to be discharged home on Saturday. Continue current tx plan. 04/28: Active on unit, attending groups. Patient reports doing well today; pt reports she is looking forward to discharging tomorrow. denies SI/HI/VH/AH. She plans on following up with her outpatient providers. Patient educated on: diagnosis, medication risk/benefits and therapeutic strategies Reason for continued inpatient stay Substantial Risk for: stable for discharge Time Spent With Patient Time: Total time managing care of this patient today _20___ minutes.
[2024-04-28 20:00] VITALS: BP 148/94; PULSE 90; RESP 16; TEMP 36.5; O2SAT 98
[2024-04-28 22:35] VITALS: BP 142/88
[2024-04-28] MEDS: Mirtazapine 7.5 MG TABLET PO (22:35)
[2024-04-28] MEDS: Prazosin HCL 1 MG CAPSULE 2 MG PO (22:35)
[2024-04-28 23:42] VITALS: RESP 23
[2024-04-29 08:00] VITALS: BP 127/60; PULSE 102; RESP 14; TEMP 36.7; O2SAT 99
[2024-04-29] MEDS: DULoxetine HCl 30 MG CAPSULE.DR 90 MG PO (09:05)
[2024-04-29] MEDS: Magnesium Oxide 400 MG TABLET PO (09:05)
[2024-04-29] MEDS: Mirabegron 50 MG TAB.ER.24H PO (09:06)
[2024-04-29 09:08] VITALS: BP 127/60
[2024-04-29] MEDS: lisinopriL 10 MG, hydroCHLOROthiazide 12.5 MG PO (09:08)
--- NOTE | 2024-04-29 09:17 | P.DS_ITS ---
DS: Providers Provider Date of Service: 04/29/24 Date of admission: 04/24/24 14:09 Date of discharge: 04/29/24 Primary care physician: Unknown Physician Attending physician on admission: Roddy Escobedo Consults: 04/25/24 15:02 Consult to Hospitalist Routine Comment: Consulting Provider: [facility] [place] [facility] Reason For Exam: adm to M3 from out pt no ed eval Attending physician on discharge: Rajesh Connolly Discharging clinician: Yuridia Roche DS: Diagnosis Discharge Diagnosis (1) Major depressive disorder, recurrent, moderate: Status: Acute (2) SAMMY (generalized anxiety disorder): Status: Acute DS: Medications Discharge Medications Home Medications: Previous Rx's ?Medication ?Instructions ?Recorded magnesium oxide 400 mg PO DAILY 30 days #30 tabs 03/19/23 lisinopril 10 1 tab PO DAILY #90 tabs 10/29/23 mg-hydrochlorothiazide 12.5 mg tablet Myrbetriq 50 mg tablet,extended 50 mg PO DAILY #30 tabs 04/20/24 release (mirabegron) duloxetine 30 mg capsule,delayed 90 mg (3 x 30 mg) PO DAILY 30 days 04/28/24 release #90 caps mirtazapine 7.5 mg tablet 7.5 mg PO BEDTIME 30 days #30 tabs 04/28/24 prazosin 2 mg capsule 2 mg PO BEDTIME 30 days #30 caps 04/28/24 Mental Status Exam Mental Status Exam Narrative: Pt is alert and oriented; behavior is cooperative and calm; dressed in casual attire; mood is described as good ; eye contact appropriate; Speech is normal rate, volume and not pressured; thought process is organized; Thought content is on tx; otherwise pertinent to relevant topics and without any delusional content, paranoid ideations or grandiosity; denies SI/HI/VH/AH. Data Data Completed and Pending Completed studies during hospitalization [Text1]: 04/24/24 04/24/24 04/24/24 14:54 14:54 14:57 WBC RBC Hgb Hct MCV MCH MCHC RDW Plt Count MPV Immature Gran % (Auto) Neut % (Auto) Lymph % (Auto) [place] % (Auto) Eos % (Auto) Baso % (Auto) Lymph # (Auto) [place] # (Auto) Eos # (Auto) Baso # (Auto) Abs Immat Gran (auto) Absolute Neuts (auto) Absolute Nucleated RBC Nucleated RBC % (auto) Hold Purple Top SEE NOTE Sodium 139 Potassium 4.4 Chloride 104 Carbon Dioxide 28 Anion Gap 11 L BUN 13 13 Creatinine 0.88 Estim Creat Clear Calc 96.5 Estimated GFR > 60 Random Glucose 102 Calcium 9.9 Total Bilirubin 1.1 H Direct Bilirubin AST 35 H ALT 110 H Alkaline Phosphatase 96 Total Protein 8.0 Albumin 4.6 Triglycerides Cholesterol LDL Cholesterol, Calc HDL Cholesterol Vitamin B12 Folate TSH Free T4 Urine Opiates Screen Ur Buprenorphine Scrn Ur Oxycodone Screen Urine Methadone Screen Urine Fentanyl Screen Ur Barbiturates Screen Ur Phencyclidine Scrn Ur Amphetamines Screen U Benzodiazepines Scrn Urine Cocaine Screen U Marijuana (THC) Screen Influenza Type A (PCR) Influenza Type B (PCR) RSV RNA Qual (PCR) SARS-CoV-2 RNA (RT-PCR) 04/24/24 04/25/24 04/25/24 15:24 08:14 10:12 WBC 8.2 RBC 4.09 L Hgb 12.8 Hct 36.4 L MCV 89.0 MCH 31.3 MCHC 35.2 H RDW 13.2 Plt Count 262 MPV 9.0 L Immature Gran % (Auto) 0.5 H Neut % (Auto) 54.7 Lymph % (Auto) 32.2 [place] % (Auto) 6.0 Eos % (Auto) 6.0 H Baso % (Auto) 0.6 Lymph # (Auto) 2.6 [place] # (Auto) 0.5 Eos # (Auto) 0.5 H Baso # (Auto) 0.1 Abs Immat Gran (auto) 0.04 H Absolute Neuts (auto) 4.5 Absolute Nucleated RBC 0.000 Nucleated RBC % (auto) 0.0 Hold Purple Top Sodium Potassium Chloride Carbon Dioxide Anion Gap BUN Creatinine Estim Creat Clear Calc Estimated GFR Random Glucose Calcium Total Bilirubin 1.0 Direct Bilirubin 0.3 AST 35 H ALT 83 H Alkaline Phosphatase 79 Total Protein 6.9 Albumin 4.1 Triglycerides 241 H Cholesterol 212 H LDL Cholesterol, Calc 121 H HDL Cholesterol 43 Vitamin B12 371 Folate 8.7 TSH 1.72 Free T4 0.80 Urine Opiates Screen Not Detected Ur Buprenorphine Scrn Not Detected Ur Oxycodone Screen Not Detected Urine Methadone Screen Not Detected Urine Fentanyl Screen Not Detected Ur Barbiturates Screen Not Detected Ur Phencyclidine Scrn Not Detected Ur Amphetamines Screen Not Detected U Benzodiazepines Scrn Not Detected Urine Cocaine Screen Not Detected U Marijuana (THC) Screen Not Detected Influenza Type A (PCR) NEGATIVE Influenza Type B (PCR) NEGATIVE RSV RNA Qual (PCR) NEGATIVE SARS-CoV-2 RNA (RT-PCR) NEGATIVE DS: Summary Hospital Course Hospital Course: here today for follow up; mood symptoms and anxiety worse since last visit; not tolerating the increase cymbalta. Her PHQ9 went from 22 to 24 and GAD7 went from 15 to 16. Pt tearful and overwhlemd; very depressed; difficulty speaking; long pauses; reports daily intrusive thoughts of stabbing herself in the neck and head with a knife or any instrument. She says that she would not hurt herslef because of her children but then says that she has thoughts that her family would be better off without her. She says they wouldn't starve because her can cook and her 16 yr old would be able to feed themselves. She reports the thoughts of hurting or killing herslef are every day; she is not sleeping well ; she is often up until 2 am and then sleeps well into the afternoon; she sits for hours staring blankly. She worries every day about her health, her family, finances, the world events. She has no motivation and can' get herself to even cook or get up out bed sometimes. She has tried multiple antidepressants and has not done well with them: prozac, lexapro, wellbutrin, effexor. She deos report episodic good days wheree she is more productive, creative, enegetic and will shop impulsively howeever these onlylast 24 hours or less. Past Psychiatric History: outpt tx since age 22. No IPLOC PAST MEDICTIONS: lexapro- increased anger wellbutrin- very negative/angry zoloft- woorked first time took - did not work on retrial prozac- ok for a bit and then stopped working effexor- excessive weight gain ...... recommend inpatient admission at this time due to level of deprssion and ideas about needing to get something out of her head by puncturing her head with knife or instrument; Pt has SI with plan and verbalizes no intent due to children but then talked about how her children could get along without her. Today: patient presents as very anxious and depressed. Clear criteria for major depressive episode. Sad, no energy, no motivation, no enjoyment in activities she usually enjoys such as spending time with her children and their activities, poor sleep, thoughts of . Reports her main goal is wanting mood to improve so she can function better. We also discussed recent diagnosis of ADD. No active SI. No HI. No psychosis. Regarding medications has been on multiple SSRIs, Effexor and Wellbutrin. Had a very bad reaction to Wellbutrin , with nightmares of harming her family. We discussed potential alternatives for augmenting Cymbalta which was helpful at 90 mg. We discussed mirtazapine, buspirone, aripiprazole or lithium. Risks and benefits discussed. Decided to trial mirtazapine 7.5 mg. Will also trial prazosin 1 mg for sleep and nightmares. Otherwise, Cymbalta lowered from 120 mg down to 90 mg with a view to possibly completely tapering off this on an outpatient basis. Regarding ADD treatment, can pursue management of that with already established outpatient provider. Patient felt supported around evaluation treatment plan. presents with clear major depressive disorder and generalized anxiety disorder. Some benefit from Cymbalta, but not when this was increased to 120 mg. has had other medication trials. We discussed potential alternatives for augmenting Cymbalta which was helpful at 90 mg. We discussed mirtazapine, buspirone, aripiprazole or lithium. Risks and benefits discussed. Decided to trial mirtazapine 7.5 mg. Will also trial prazosin 1 mg for sleep and nightmares. Otherwise, Cymbalta lowered from 120 mg down to 90 mg with a view to possibly completely tapering off this on an outpatient basis. Regarding ADD treatment, can pursue management of that with already established outpatient provider. Patient felt supported around evaluation treatment plan. Increase prazosin to 2 mg Active on unit, attending groups. Patient reports she feels the depression decreasing with the change in Abilify and starting the prozosin ; pt stated, I haven't had any thoughts of self harm since yesterday. I'm feeling less like I'm trapped in a box. I'm able to get out of bed, shower and eat . She reports not having any nightmares last night. denies SI/HI/VH/AH. If she continues to improve, pt would like to be discharged home on Saturday. Continue current tx plan. Active on unit, attending groups. Patient reports doing well today; pt reports she is looking forward to discharging tomorrow. denies SI/HI/VH/AH. She plans on following up with her outpatient providers. Patient reports feeling good and happy to go home ; denies SI/HI/VH/AH. Status at Discharge Cognitive/behavioral status at discharge: Patient has insight and demonstrates good judgment in terms of wanting to pursue treatment. Patient has a safety plan that includes presenting to the closest ER or calling 911 if feeling unsafe. Functional status at discharge: independent ambulation Overall status at discharge: patient is back to baseline Time Spent with Patient Time attestation: Total time managing care of this patient today _20___ minutes. Time spent: Less than 30 minutes Discharge Plan Discharge Anticipated Discharge Date/Time: 04/29/24 11:00 Patient Disposition: Home, Self-Care Discharge Diagnosis: MDD, SAMMY Referrals: Meka Kemp [Other] - 05/08/24 1:00 pm (in person appointment) Arelis Serrano MD [Physician] - 1 Week (04-28-24 Your primary care provider will be contacting you to schedule your follow up appt.) Discharge Medications: New mirtazapine 7.5 mg Tablet 7.5 mg PO BEDTIME 30 Days Qty: 30 0RF prazosin 2 mg capsule 2 mg PO BEDTIME 30 Days Qty: 30 0RF duloxetine 30 mg Capsule,Delayed Release(Dr/Ec) 90 mg PO DAILY 30 Days Qty: 90 0RF Continued lisinopril-hydrochlorothiazide 10-12.5 mg tablet 1 tab PO DAILY Qty: 90 1RF mirabegron [Myrbetriq] 50 mg tablet extended release 24 hr 50 mg PO DAILY Qty: 30 0RF magnesium oxide 400 mg magnesium tablet 400 mg PO DAILY 30 Days Qty: 30 3RF Discontinued duloxetine 60 mg capsule,delayed release(DR/EC) 120 mg PO DAILY Qty: 180 1RF Discharge Orders: Discharge Order (Routine); Ordered 04/29/24 Ordered By: Yuridia Roche Diet: Regular diet Activity on Discharge: As tolerated Stand Alone Forms: Patient Portal Discharge page, Community Support Print Language: Guyanese Care Plan Goals: Maintain mood and safe behaviors Take medications as prescribed Practice coping skills Continue with outpatient providers and reach out to them as needed Health Concerns: Mood stability and behaviors Plan of Treatment: Follow up with your PCP, psychiatric provider and other outpatient providers regarding above concerns Take medications as prescribed Assessment: Patient has insight and demonstrates good judgment in terms of wanting to pursue treatment. Patient has a safety plan that includes presenting to the closest ER or calling 911 if feeling unsafe. Discharge Date/Time: 04/29/24 11:41
== END 2024-04-29 11:41 | disposition home or self-care (01) | DRG 885 ==
PROVIDERS: Psychiatry & Neurology Psychiatry; Admitting Provider Registered Nurse; Responsible Provider Registered Nurse; Visit Provider Psychiatry & Neurology Psychiatry
DX: F33.1 Major depressive disorder, recurrent, moderate (principal); R45.851 Suicidal ideations; F41.1 Generalized anxiety disorder; I10 Essential (primary) hypertension; R73.03 Prediabetes; N32.81 Overactive bladder; G47.33 Obstructive sleep apnea (adult) (pediatric); Z20.822 Contact with and (suspected) exposure to COVID-19; Z79.899 Other long term (current) drug therapy
CPT/HCPCS: 0241U; 36415; 80053; 80061; 80076; 80307; 82607; 82746; 84439; 84443; 84520; 85025; 94660; 99212

== ENCOUNTER → 2024-04-24 14:09 | Outpatient (BNV) | payer OTHER, SELFPAY | PROVIDERS: Admitting Provider Registered Nurse; Responsible Provider Registered Nurse; Visit Provider Psychiatry & Neurology Psychiatry | DX: F33.1 Major depressive disorder, recurrent, moderate (principal); F41.1 Generalized anxiety disorder | CPT/HCPCS: 90792; 99231; 99232; 99238 ==

== ENCOUNTER → 2024-04-24 14:09 | Outpatient (BNV) | payer OTHER, SELFPAY | PROVIDERS: Admitting Provider Registered Nurse; Responsible Provider Registered Nurse; Visit Provider Student in an Organized Health Care Education/Training Program | DX: I10 Essential (primary) hypertension (principal); R73.03 Prediabetes; G47.33 Obstructive sleep apnea (adult) (pediatric) | CPT/HCPCS: 99222 ==

== ENCOUNTER 2024-05-07 13:01 | Outpatient (REF) | payer OTHER, SELFPAY ==
--- NOTE | 2024-05-07 13:06 | EMG_ITS ---
Chief complaint: Chronic bilateral hand numbness Reason for referral: Evaluate for Carpal Tunnel Syndrome Referred by: Dr. Serrano Procedure done: Bilateral upper extremities NCS/EMG Precautions and/or limitations: None The limb temperature was monitored continuously and remained between 32-36 degrees C during the performance of the NCS. Nerve Conduction Studies Anti Sensory Summary Table ?Stim Site NR Onset (ms) Norm Onset (ms) Peak (ms) Norm Peak (ms) O-P Amp (?V) Norm O-P Amp Site1 Site2 Delta-0 (ms) Dist (cm) Lux (m/s) Norm Lux (m/s) Left Median Anti Sensory (2nd Digit) Wrist ? 2.4 3.1 <3.6 16.8 >10 Wrist 2nd Digit 2.4 14.0 58 Right Median Anti Sensory (2nd Digit) Wrist ? 3.7 4.7 <3.6 6.8 >10 Wrist 2nd Digit 3.7 14.0 38 Right Radial Anti Sensory (Thumb) Forearm ? 1.0 2.3 <3.1 22.0 Forearm Thumb 1.0 0.0 Left Ulnar Anti Sensory (5th Digit) Wrist ? 2.3 3.2 <3.7 18.3 >15.0 Wrist 5th Digit 2.3 14.0 61 Right Ulnar Anti Sensory (5th Digit) Wrist ? 1.2 3.2 <3.7 18.1 >15.0 Wrist 5th Digit 1.2 14.0 117 Motor Summary Table ?Stim Site NR Onset (ms) Norm Onset (ms) O-P Amp (mV) Norm O-P Amp iAmp (mV) Amp (1st) (%) Site1 Site2 Delta-0 (ms) Dist (cm) Lux (m/s) Norm Lux (m/s) Left Median Motor (Abd Poll Brev) Wrist ? 2.8 <3.9 11.7 >4.5 13.8 100.0 Elbow Wrist 3.8 19.0 50 >45 Elbow ? 6.6 11.1 13.3 94.9 Right Median Motor (Abd Poll Brev) Wrist ? 4.6 <3.9 4.2 >4.5 4.7 100.0 Elbow Wrist 3.4 17.0 50 >45 Elbow ? 8.0 6.1 7.0 145.2 Left Ulnar Motor (Abd Dig Minimi) Wrist ? 2.6 <3.0 8.1 >5 10.2 100.0 B Elbow Wrist 2.8 16.5 59 >45 B Elbow ? 5.4 8.4 10.5 103.7 A Elbow B Elbow 1.2 10.0 83 >45 A Elbow ? 6.6 7.9 9.6 97.5 Right Ulnar Motor (Abd Dig Minimi) Wrist ? 2.6 <3.0 9.2 >5 11.0 100.0 B Elbow Wrist 2.9 17.0 59 >45 B Elbow ? 5.5 10.4 12.2 113.0 A Elbow B Elbow 1.3 10.0 77 >45 A Elbow ? 6.8 9.3 11.2 101.1 Comparison Summary Table ?Stim Site NR Peak (ms) Norm Peak (ms) P-T Amp (?V) Site1 Site2 Delta-P (ms) Norm Delta (ms) Left Median/Radial Dig I Comparison (Digit 1 - 10cm) Median ? 2.4 <2.9 123.4 Median Radial 0.1 Radial ? 2.5 <2.8 34.6 EMG ?Side Muscle Nerve Root Ins Act Fibs Psw Amp Dur Poly Recrt Int Pat Comment Right 1stDorInt Ulnar C8-T1 Nml Nml Nml Nml Nml 0 Nml Complete Right FlexCarRad Median C6-7 Nml Nml Nml Nml Nml 0 Nml Complete Right Biceps Musculocut C5-6 Nml Nml Nml Nml Nml 0 Nml Complete Right Triceps Radial C6-7-8 Nml Nml Nml Nml Nml 0 Nml Complete Right Deltoid Axillary C5-6 Nml Nml Nml Nml Nml 0 Nml Complete Left 1stDorInt Ulnar C8-T1 Nml Nml Nml Nml Nml 0 Nml Complete Left FlexCarRad Median C6-7 Nml Nml Nml Nml Nml 0 Nml Complete Left Biceps Musculocut C5-6 Nml Nml Nml Nml Nml 0 Nml Complete Left Triceps Radial C6-7-8 Nml Nml Nml Nml Nml 0 Nml Complete Left Deltoid Axillary C5-6 Nml Nml Nml Nml Nml 0 Nml Complete FINDINGS: Right median motor nerve showed prolonged distal latency, small amplitude and normal conduction velocity. Right median sensory nerve showed small amplitude and prolonged peak latency. All other nerves tested were within normal. Concentric needle EMG was performed in selected muscles of the bilateral upper extremities. Study did not reveal signs of electric abnormalities as shown in the table above. IMPRESSION: 1. This is an abnormal study. 2. There is electrodiagnostic evidence for right moderate-severe median neuropathy at the wrist, consistent with carpal tunnel syndrome. 3. There is no electrodiagnostic evidence for ulnar neuropathy, brachial plexopathy, or cervical radiculopathy. 4. No signs of Carpal Tunnel Syndrome on left side. Thank you for your kind referral. Danielel Polanco MD, REMIGIO Board Certified, [place] Board of Physical Medicine and Rehabilitation (ABPMR) Board Certified, [place] Board of Electrodiagnostic Medicine (ABEM) CODIN [phone] MTDD
--- OUTSIDE RECORDS SUMMARY | 2024-05-07 16:44 | XMS_ITS | Continuity of Care Document ---
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 BOTTLE Active [id number] 4 2023 10 Pharmac y Data Transac tion Service Facilit y Benzonatate ([employer]) 100 CAPSULE in 1 BOTTLE Active [id number] 06/26/19 2 4 2023 60 Pharmac y Data Transac tion Service Facilit y DIAZEPAM (DIAZEPAM), 5MG, TABLET, ORAL, IVAX PHARMACEUT, 100 ea. BOTTLE Active [id number] 4 2023 10 Pharmac y Data Transac tion Service Facilit y DULOXETINE HCL (DULOXETINE HCL), 60 MG, CAPSULE DR, ORAL, BRECKENRIDG E, 90 ea. BOTTLE Active [id number] 4 2023 90 Pharmac y Data Transac tion Service Facilit y DULOXETINE HCL (DULOXETINE HCL), 60 MG, CAPSULE DR, ORAL, BRECKENRIDG E, 90 ea. BOTTLE Active [id number] 4 2023 90 Pharmac y Data Transac tion Service Facilit y LIDOCAINE (lidocaine) , 5 %, ADH. PATCH, TOPICAL, AMNEAL PHARMACE, 30 ea. BOX Active [id number] 4 2023 30 Pharmac y Data Transac tion Service Facilit y LISINOPRIL (lisinopril ), 10 MG, TABLET, ORAL, LUPIN PHARMACEU, 1000 ea. BOTTLE Active [id number] 4 2023 30 Pharmac y Data Transac tion Service Facilit y LISINOPRIL (lisinopril ), 10 MG, TABLET, ORAL, LUPIN PHARMACEU, 1000 ea. BOTTLE Active [id number] 4 2023 30 Pharmac y Data Transac tion Service Facilit y LISINOPRIL (LISINOPRIL ), 5MG, TABLET, ORAL, LUPIN PHARMACEU, 1000 ea. BOTTLE Active [id number] 3 2022 30 Pharmac y Data Transac tion Service Facilit y LISINOPRIL (LISINOPRIL ), 5MG, TABLET, ORAL, LUPIN PHARMACEU, 1000 ea. BOTTLE Active [id number] 4 2023 30 Pharmac y Data Transac tion Service Facilit y LISINOPRIL- HCTZ (LISINOPRIL /HYDROCHLOR OTHIAZIDE), 10-12.5MG, TABLET, ORAL, LUPIN PHARMACEU, 100 ea. BOTTLE Active [id number] 4 2023 30 Pharmac y Data Transac tion Service Facilit y LISINOPRIL- HCTZ (LISINOPRIL /HYDROCHLOR OTHIAZIDE), 10-12.5MG, TABLET, ORAL, LUPIN PHARMACEU, 100 ea. BOTTLE Active [id number] 4 2023 30 Pharmac y Data Transac tion Service Facilit y SULFAMETHOX AZOLE-TRIME THOPRIM (sulfametho xazole/trim ethoprim), 800-160 MG, TABLET, ORAL, RISING PHARM, 100 ea. BOTTLE Active [id number] 4 2023 14 Pharmac y Data Transac tion Service Facilit y Allergies, Adverse Reactions, Alerts Combined list of allergies from Department of Defense and Veterans Affairs facilities. It does not include entries that were removed or entered in error. Substance Category Reaction Severity Reaction type Status Date Reported Comments Source acetaminophe n-hydrocodon e Drug allergy Active One or More [facility] Facilities [facility] ADHESIVES Propensity to adverse reaction (finding) active 0 [facility] Adhesives Allergy to substance Active One or More A Facilities [facility] HYDROCODONE Drug allergy (disorder) active 0 [facility] Latex Drug allergy Active One or More A Facilities FOREIGN DIPLOM[facility] LATEX GLOVE Propensity to adverse reactions to drug (finding) active 0 [facility] VICODIN Propensity to adverse reactions to drug (finding) active 0 [facility] Immunizations Combined list of available immunizations from the Department of Defense and Veterans Affairs facilities. Immunization Series Date Given Administered By Site Reaction Lot Number CVX Code Drug Long Chain Beamer Status Comments Source COVID-19, mRNA, LNP-S, PF, 30 mcg/0.3 mL dose 2020 [facility] [place] (PFR) Not Given COVID-19, mRNA, LNP-S, PF, 30 mcg/0.3 mL dose [facility] COVID-19, mRNA, LNP-S, PF, 30 mcg/0.3 mL dose 2020 [employer] [place] (PFR) Not Given COVID-19, mRNA, LNP-S, PF, 30 mcg/0.3 mL dose DoD COVID-19, mRNA, LNP-S, PF, 30 mcg/0.3 mL dose 2020 [employer] [employer] [place] (PFR) Not Given COVID-19, mRNA, LNP-S, [...] months. 2) Encounters from the [facility] of [place] facilities going back up to 280 months. Location Location Details Encounter Type Encounter Number Reason For Visit Attending Provider ADM Date DC Date Status Disposition Source One or More A Facilitie s [facility] D[facility] History 04/22 One or More A Facilit ies [facility] D[facility] Ambulator y Pharmacy [facility] [id number] 05/13 Ambulat ory Pharmac y Procedures Combined list of: 1) Procedures from Department of Veterans Affairs facilities going back up to thelast 18 months, not all [place] non-surgical procedures are included; 2) All procedures [...] Plan No data available for this section 05/07/2024 Ambulatory Pharmacy Functional Status Combined list of recent functional and cognitive assessments recorded at [facility] Functional Baldwin Measurement (FIM) Scale: 1 = Total Assistance (Subject = 0% +), 2 = Maximal Assistance (Subject = 25% +), 3 = Moderate Assistance (Subject = 50% +), 4 = Minimal Assistance (Subject = 75% +), 5 = Supervision, 6 = Modified Baldwin (Device), 7 = Complete Baldwin (Timely, Safely). Assessment Date/Time Source Assessment Type Assessment Skill Assessment Score Assessment Details No data available for this section
--- OUTSIDE RECORDS SUMMARY | 2024-05-07 16:45 | XMS_ITS | Data Portability ---
Author Organization [place] - [facility], [place] - [facility] - Address [address] [place] [address] Care Team Providers Care Branch Examiner Name Role Phone ROBIN PENALOZANN Primary Care [...] 6-8 weeks. This visit was conducted via WeVue website PingTune using both audio and video during the 2019 COVID-19 pandemic. Patient consented to non face to face service. Patient location: car Provider location: [facility] Start time: 1417 End time: 1424 Participants [...] This visit was conducted via telehealth website PingTune using both audio and video during the 2020. Patient consented to non face to face service. Patient location: home Provider location: [facility] Start time: 1424 End time: 1429 Participants [...] This visit was conducted via telehealth website PingTune using both audio and video during the 2019. Patient consented to non face to face service. Patient location: home Provider location: [facility] Start time: 1352 End time: 1401 Participants [...] HCl 50 mg tablet 2020 021 [facility], [address], [place], [address], 15:27:21 duloxetine 30 mg capsule,del ayed release 2020 021 [facility], [address], [place], [address], 15:27:17 duloxetine 60 mg capsule,del ayed release 2020 021 [facility], [address], [place], [address], 15:27:17 duloxetine 30 mg capsule,del ayed release 2021 022 [facility], [address], [place], [address], 15:13:01 duloxetine 60 mg capsule,del ayed release 2021 022 [facility], [address], [place], [address], 2 15:12:56 hydroxyzine HCl 50 mg tablet 2021 022 [facility], [address], [place], [address], 15:12:57 Patient TargetsNo targets recorded. Patient InstructionsNo instructions recorded. Reason for Referral None Reported. Problems Name Problem SNOMED Code Status Onset Date Resolution Date Notes Provider Name and Address Organization Details Recorded Time Multiple environm ental allergie s Active scotty sepulveda [facility] 6 12:23:04 Irritabl e bowel syndrome 01313814 Active celiac disease Ab testing Neg 11/03; improved w/ Gluten free diet scotty sepulveda [facility] 6 12:23:04 Gastroes ophageal reflux disease 213893979 Active scotty sepulveda [facility] 6 12:23:04 Mixed anxiety and depressi ve disorder 720060129 Active hx of post depressi on and took lexapro but felt poor response , wellbutr in was very neg side effects (bad vivid dreams of her hurting her family); zoloft was very good response but had to stop when breast feeding bad w/d (didn't wean) scotty sepulveda [facility] 6 12:23:03 Migraine 31697656 [facility] 12:[facility]03 Hiatal hernia 30207425 [facility] 6 12:23:04 Hemorrho ids 86928032 Completed 12/11/2018 tx'd w/ anusol-H C Timbo Mckeon DO [address], [place], [address] , [facility] 9 17:20:55 Female stress incontin ence 46366629 Active [facility] 7 18:34:40 Pyelonep hritis 04563499 Completed 201412/11/2018 tx'd w/ Levaquin Timbo Mckeon DO [address], [place], [address] , [place] [facility] 9 17:19:51 Insomnia 163271516 [facility] 6 12:23:03 Fracture of hand 67937678 Completed 200912/11/2018 Left Timbo Mckeon DO [address], [place], [address] , [place] [facility] 9 17:20:04 Tinnitus 63410085 [facility] 6 12:23:04 Decrease d hearing 885761989 Completed 12/11/2018 Timbo Mckeon DO [address], [place], [address] , [place] [facility] 9 17:19:28 Reduced visual acuity 15919479 Active scotty banda null, [place] - [facility] 6 12:23:04 Sensorin eural hearing loss of bilatera l ears 000369119 Active Asha Bradford [address], [place], [address] , [place] - [facility] 6 13:11:25 Menorrha obi 706330969 Active Margy Becker MD [address], [place], [address] , [place] - [facility] 7 22:56:04 Blood in urine 08029724 Completed 12/11/2018 Timbo Mckeon DO [address], [place], [address] , [place] [facility] 9 17:19:34 Obesity 953328580 Active 2018 Timbo Mckeon DO [address], [place], [address] , [place] [facility] 9 01:18:28 Pregnanc y 64189271 Completed 201903/16/2020 Aliyahjanet Whitehead null, [place] - [facility] 0 12:25:25 Gestatio nal diabetes mellitus class A2 84312437 Active 2019 Aliyahjanet Whitehead null, [place] - [facility] 0 12:25:22 Gestatio nal diabetes mellitus class A2 99998416 Completed 2019 Aliyahjanet Whitehead null, [place] - [facility] 0 12:25:22 Depressi ve disorder 01769518 Active 2020 Yaya Casanova DO [address], [place], [address] , [place] [facility] 1 15:54:10 Notes:hx plantar fasciitis; hx L. [...] Non-Stress Test completed Malka VANEGAS, Cali [address], [place], [address], [facility] 02/25/2020 13:33:54 02/18/20 20 Non-Stress Test completed Clai Ace MD [address], [place], [address], [facility] 02/18/2020 15:49:47 02/11/20 20 Non-Stress Test completed Cali Ace MD [address], [place], [address], [facility] 02/11/2020 15:03:18 01/12/20 20 Non-Stress Test completed Cali Ace MD [address], [place], [address], [place] [facility] 01/12/2020 18:21:04 12/19/19 19 Date of Last Pap Smear completed Timbo Mckeon DO [address], [place], [address], [facility] 12/24/2018 14:45:47 06/30/19 17 Ortho Corticosteroid Injection completed Vy Feliciano [facility] 06/29/2016 12:26:26 06/29/19 17 Cystoscopy (female) completed Chuck VANEGAS, [address], [place], [address], [facility] 06/28/2016 12:41:47 06/14/19 17 Bladder Scan completed Chuck VANEGAS, [address], [place], [address], [facility] 06/14/2016 13:22:58 04/05/20 16 Tympanometry completed Asha Bradford [address], [place], [address], [facility] 04/05/2016 13:11:04 04/05/20 16 Audiogram.old completed Asha Bradford [address], [place], [address], [facility] 04/05/2016 13:11:04 11/21/19 15 Other completed Georgi Moctezuma MD [address], [place], [address], [facility] 01/13/2016 00:18:30 10/21/19 15 Other completed Georgi Moctezuma MD [address], [place], [address], [facility] 01/13/2016 00:18:30 04/22/19 00 [place] Teeth Removed completed Georgi Moctezuma MD [address], [place], [address], [facility] 01/12/2016 22:50:32 Oral surgery procedure completed Dena Argueta [facility] 04/06/2016 12:36:17 Imaging Results None recorded. Procedure Notes None recorded. Medical Equipment None Reported. Allergies Allergen ID Allergen Name Allergen Category Reaction Reaction Severity Criticality Documentation Date Start Date Code Code System Note Provider Name and Address Organization Details Recorded Time 190370 latex environme nt,medica tion hives moderate Not available 01/12/2016 30645 91 RxNorm Georgi Moctezuma MD [address] [facility], [place], [address], [facility] 6 22:23:54 732418 acetamino phen / hydrocodo ne medicatio n other moderate Not available 04/05/2016 00522 2 RxNorm facia l numbn ess scotty sepulveda, [facility] 6 12:23:03 933036 Wellbutri n medicatio n Not available Not available Not available 06/18/2016 83106 RxNorm vivid dream s/fri ghten ing ; used w/ post partu m grisele carter Moctezuma MD, Georgi Costa [address], [place], [address], [facility] 7 11:10:40 450920 adhesive tape environme nt,medica tion Not available Not available Not available 03/16/2020 Aliyah sepulveda, [facility] 0 12:21:24 Medications Name Sig Start Date [...] e 137 mcg (0.1 %) nasal spray [place] 1 spray every day by intranas al [...] Not Available Not Available Not Available FreeStyle [place] Lite kit 03/16 completed Not Available Not [...] Smoking Status Never Smoker 12/11/18 Kathy Guallpa [facility] 12/11/2018 16:59:59 Do You Have An Advance Directive? No I Gave Her The Form For The Living Will And Health Power Of Child Care Centre Director, She Does Want To Be Resuscitated. She Does Not Want To Be Maintained On Chronic Life Support If There Is Little Hope Of A Meaningful Recovery. - 12/18/2018 Information not available 12/18/2018 What Is Your Level Of Alcohol Consumption? None [email or web address] Information not available 10/27/2019 Are You Blind [...] COVID-19 While That Case Was Ill? No [email or web address] Information not available 07/30/2019 In The 14 Days Before Symptom Onset, Have You Had Close Contact With A Person Who Is Under Investigation For COVID-19 While That Person Was Ill? No [email or web address] Information not available 07/30/2019 Have You Been To An Area Known To Be High Risk For COVID-19? No [email or web address] Information not available 07/30/2019 What Type Of Diet Are You Following? REGULAR Low Sodium Information not available 01/12/2016 Which Illicit Or Recreational Drugs Have You Used? None Information not available 12/11/2018 Do You Or Have You Ever Used E-cigarettes Or Vape? 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 No 12/11/18 Mh Information not available 04/06/2016 Have You Traveled Outside Of The [place] In The Last 21 Days (3 Weeks)? No Information not available 04/06/2016 Do You Have Any Zoroastrian Beliefs That May Impact Your Health Care Decisions? No Does Not Follow Any Gnosticist Information not available 12/11/2018 Did You Hurt Yourself When You Fell In The Last Year? No 12/11/18 Mh Information not available 04/06/2016 Education: 12 Information not available 12/11/2018 Marital Status Informatio n not available 01/12/2016 What Was The Date Of Your Most Recent Tobacco Screening? 09/12/2020 [email or web address] Information not available 09/15/2020 Are You Sexually [...] Details LastModified Time Father Myocardial infarction 55 [email or web address] Not available 04/25 18:44:02 Father Hypertensive disorder Not available 2016 18:44:02 Father Hyperlipidem ia [email or web address] Not available 2016 18:44:02 Paternal Aunt Malignant tumor of cervix [email or web address] Not available 2016 18:44:02 Paternal Aunt Dementia [email or web address] Not a vailable 04/25/2016 18:44:02 Mother Pyelonephrit [...] hypertension (sister ) Medical History Condition Response Diabetes N Number of Pregancies Y Urinary Tract Infections N Obesity Y Low Testosterone N Anxiety Y Enlarged Prostate N Erectile Dysfunction N Cancer N Asthma Depression Y Elevated PSA N Reconstructive surgeries N Endometriosis N Urinary Problems [...] PF 1 completed Maile sepulveda [facility] 03/15/2021 12:10:26 COVID-19, mRNA, LNP-S, PF, 30 mcg/0.3 mL dose 1 completed Savana sepulveda [facility] 08/30/2020 10:45:30 COVID-19, mRNA, LNP-S, PF, 30 mcg/0.3 mL dose 1 completed Savana sepulveda [facility] 08/30/2020 10:45:45 COVID-19, mRNA, LNP-S, PF, 30 mcg/0.3 mL dose 1 completed Maile sepulveda [facility] 03/15/2021 11:48:03 Influenza, split virus, trivalent, PF 8 cancelled patient objection Not Available [facility] 05/09/2019 02:33:30 Influenza, MDCK, quadrivalent , PF 8 completed Not Available [facility] 05/09/2019 03:23:32 Influenza, MDCK, quadrivalent , PF 9 completed Not Available [facility] 05/09/2019 03:01:50 Influenza, split virus, quadrivalent , PF 0 completed Savana sepulveda [facility] 01/05/2020 16:31:36 Tdap 07/23/201 3 completed Not Available [facility] 03/07/2020 09:20:47 Past Encounters Encounter ID Performer Location Encounter Start Date Encounter Closed Date Diagnosis/Indication Diagnosis SNOMED-CT Code Diagnosis ICD10 Code Diagnosis Note [id number] Anisha Mcclain [facility] POS [address] [facility] [facility],[place] [address] 01/12/2016 10:23:10 01/13/2016 12:09:34 Adult health examination 686364922 Z00.00 Hematology screening test 834651007 Z13.0 Hyperlipid emia screening 752168379 Z13.220 Endocrine/ metabolic screening 368951015 Z13.228 Mixed anxi ety and depressive disorder 311901981 F41.8 Tinnitus 08997362 H93.13 Decreased hearing 676661 001 H91.93 Reduced visual acuity 13 899578 H54.7 [facility] care 55015 5005 Z30.40 [id number] Lv lucas MD, Chandrakant Shipley [facility] POS [address] [place] [address] [address] [place] [address] 04/05/2016 11:57:03 04/05/2016 13:17:18 Tinnitus 82009638 H93.13 At this time the patient has bilateral tinnitus, most likely due to her bilateral hearing loss. Please see plan as described above. FG Allergic r hinitis caused by pollen 43815068 J30.1 At this time the patient has a significan t history of nasal obstructio n and postnasal drip. . The nasal obstructio n tends to be worse at night. I believe she may have some degree of allergic rhinitis. She has been taking some Zyrtec with some benefit. At this time I will start her on fluticason e. She had no further questions at this point. FG Sensorineu ral hearing loss of bilateral ears 946401975 H90.3 At this time the patient comes in with bilateral ear fullness. She also has had long-stand ing tinnitus. On my examinatio n I see no major abnormalit ies. Audiogram shows a bilateral mild to moderate sensorineu ral hearing loss. She would benefit from hearing aids. However, she would like to think about this. I've given her the contact informatio n for our audiologis t if she wishes to move forward with sophyjean. She had no further questions for now. She will follow up as needed. FG Dizziness 749236824 R42 At this time the patient also complains of an off balance feeling with walking up and down stairs, but does not have any other problems. We will see if this improves on nasal steroid spray. She had no further questions and will follow up as needed for now. FG [id number] Asha Bradford [facility] POS [address] [place] [address],[place] [place] [address] 04/05/2016 13:09:55 04/05/2016 13:12:09 Sensorineural hearing loss of bilateral ears 758383993 H90.3 [id number] Eugenio VANEGAS, Margy Valdivia [facility] [place] POS [address] [place] [address],[place] [address] [place] [address] 04/06/2016 12:09:16 04/06/2016 13:47:10 Gynecologic examination 71324183 Z01.419 Screening for malignant neoplasm of cervix 724651294 Z12.4 Menorrhagia 407262817 N9 2.0 History of urinary tract infection 4849271423 107 Z87.440 Surveillan ce of contraception 165589353 Z30.40 [id number] Eugenio VANEGAS, Margy Valdivia [facility] [place] POS [address] [place] [address],[place] [address] [place] [address] 04/25/2016 17:48:13 04/25/2016 19:53:53 Menorrhagia 425980310 N92.0 Blood in urine 59211105 R31.9 [id number] Rhianna VANEGAS, Georgi Costa [facility] POS [address],[facility] [place] [address] 05/08/2016 10:01:31 05/08/2016 12:08:23 Migraine 07566602 G43.909 Mixed anxi ety and depressive disorder 268695575 F41.8 Carpal davonte simon syndrome 12473480 G56.00 Insomnia 217895449 G47.0 0 Hand pain 43763008 M79.6 42 Vitamin D deficiency 347 59660 E55.9 [id number] hCuck VANEGAS, [facility] POS [address] [place] [address] 06/14/2016 12:22:40 06/14/2016 14:22:12 Microscopic hematuria 998902567 R31.21 she had 2-5 rbc on last ua done 04/26.17-has had full workup done in the past by another urologist and was negative but it was a while agovijay send urine for c/s and cytology-f ollow up for cystoscopy in office Renal colic 7897622 N23 she is having bilateral flank pain-previ ous urologist had checked a renal us but this may not sampler pickup renal stones-jc l do ct scan for stone search prior to cystoscopy [id number] Rhianna VANEGAS, Georgi Costa [facility] POS [address],[place] [address] 06/18/2016 10:33:06 06/18/2016 12:04:21 Mixed anxiety and depressive disorder 174458657 F41.8 [id number] Chuck VANEGAS, [facility] POS [address] [place] [address] 06/28/2016 12:09:59 06/28/2016 12:45:15 Blood in urine 13864102 R31.9 her cystoscopy shows mild chronic bullous cystitis and a diverticul um, mild grade 1 trabeculat ions-will start on suppressiv e dose macrodanti n for one monthfollo w up in 3mos [id number] Donnell VANEGAS, Luis Soliz [facility] POS [address] [place] [address] 06/29/2016 11:24:40 07/13/2016 10:46:48 Hand pain 08753033 M79.643 Carpal davonte simon syndrome 81554744 G56.01 G56.02 [id number] Donnell VANEGAS, Luis Soliz [facility] [place] POS [address] [place] [address] 07/13/2016 11:07:42 07/13/2016 13:24:50 Pain in wrist 48151005 M25.531 Hand pain 53828085 M79.6 43 Carpal davonte simon syndrome 50396340 G56.01 G56.02 [id number] Rhianna VANEGAS, Georgi Costa [facility] POS [address],[place] [address] 07/16/2016 10:58:41 07/16/2016 11:42:57 Mixed anxiety and depressive disorder 114862833 F41.8 [id number] Donnell VANEGAS, Luis Jimenezjennifer [facility] [place] POS [address] [place] [address] 08/13/2016 11:24:07 08/13/2016 12:23:07 Hand pain 47199487 M79.641 Pain in wrist 53328887 M 25.531 Carpal davonte simon syndrome 83820407 G56.01 G56.02 [id number] Donnell VANEGAS, [facility] [place] POS [address] [place] [address] 09/20/2016 11:45:56 09/20/2016 14:44:21 Pain in wrist 02466985 M25.531 M25.532 Hand pain 87666487 M79.6 41 Carpal davonte simon syndrome 52924428 G56.01 G56.02 [id number] Chuck VANEGAS, [facility] [place] POS [address] [place] [address] 10/04/2016 11:54:33 10/04/2016 12:31:12 Blood in urine 61923038 R31.9 she had history of microhemat uriawas given 3mos of suppressiv e dose abxhas not seen any blood in urinewill check ua/culture Bladder mu scle dysfunction - overactive 343461075 N32.81 she goes to bathroom every 2 hours during day and 2 times at night, occ urge incontinen cetrial of myrbetriq Female str ess incontinence 91249943 N39.3 -she does not require pads for the problemonl y occurs occasional ly with sneezingdi scussed treatment options- geoffrey will observe for now [id number] Donnell VANEGAS, Luis Soliz [facility] [place] [address] [place] [address] 10/08/2016 09:47:26 10/08/2016 10:46:23 Pain in wrist 09180491 M25.531 M25.532 Hand pain 72410884 M79.6 41 Carpal davonte simon syndrome 03222109 G56.01 G56.02 [id number] Donnell VANEGAS, Luis Soliz [facility] POS [address] [facility] [place] [address] 11/09/2016 10:50:45 11/09/2016 12:33:48 Pain in wrist 61366349 M25.531 M25.532 Neck pain 26314357 M54.2 Hand pain 20526264 M79.6 41 Carpal davonte simon syndrome 60882514 G56.01 G56.02 [id number] Rhianna VANEGAS, Georgi [facility] POS [address],[place] [address] 11/21/2016 10:22:19 12/11/2016 16:16:59 Low back pain 785057372 M54.5 Snoring 97142758 R06.83 [id number] Rhianna VANEGAS, Georgi [facility] AM POS [address],[place] [address] 01/10/2017 16:20:44 01/10/2017 17:19:55 Pain in left knee 3319755492 70948 M25.562 Depressive disorder 3548 9007 F32.89 Fatigue 71685760 R53.83 [id number] Chuck VANEGAS, [facility] POS [address] [place] [address] 01/31/2017 11:27:16 01/31/2017 12:47:19 Bladder muscle dysfunction - overactive 124589438 N32.81 she goes to bathroom every 2 hours during day and 2 times at night, occ urge incontinen cemyrbetri q didn't help and wasn't covered Female str ess incontinence 59591197 N39.3 she is more bothered by it latelywoul d like to try physical therapyref erral to at [facility] given [id number] Tete Brian DO [facility] AM#1 POS [address] [place] [address] 03/08/2017 11:55:53 03/13/2017 00:11:33 Fatigue 20145201 R53.83 --concerns for fatigue and insomnia. Have discussed sleep hygeine techniques with patient and reviewed the sleep study with her. Discussed weight loss and controllin g nasal congestion .--Pt will attempt these and follow up in the next 3 months. Allergic rhinitis 607344 04 J30.9 --nasal congestion Obesity 634049043 E66.9 --discusse d keeping track of her calories and aiming to eat about 500 calories less then what she normally eats.--Pt should f/u in 3 months on weight loss. [id number] Tete Brian DO [facility] AM#1 POS [address] [place] [address] 06/12/2017 10:00:03 06/12/2017 10:41:36 Active or passive immunization 570713052 Z23 Fatigue 56133387 R53.83 --cont use of breathe right strips and use nasal steroid. Allergic rhinitis 538313 04 J30.9 --nasal congestion continued. Increase cetirizine to 10 mg daily, but go back to 5 mg if she feels overly fatigued. Cont fluticason e and also start azelastine daily. Gastroesop hageal reflux disease 000106995 K21.9 [id number] Tete Brian DO [facility] AM#1 POS [address] [place] [address] 08/12/2017 10:54:36 08/12/2017 11:48:10 Obesity 488412176 E66.9 --discusse d weight loss and diet again Insomnia 473800774 G47.0 0 --pt instructed to take amitriptyl ine daily.--Co unselled on possible side effects. RTC if insomnia worsens Neck pain 07862807 M54.2 --negative adsons test, negative spurling sign. Muscle spasm in b/l neck.--Giv en exercises for neck. OTC tylenol and ibuprofen. RTC as needed. Migraine 06959209 G43.90 9 [id number] Tete Biran DO [facility] AM#1 POS [address] [place] [address] 02/11/2018 10:03:22 02/11/2018 10:50:04 Administration of influenza vaccine 47183941 Z23 Migraine 16843743 G43.90 9 --fioricet , amitriptyl ine and topiramate Insomnia 397739485 G47.0 0 --pt instructed to take amitriptyl ine daily.--Co unselled on possible side effects. RTC if insomnia worsens Environmental allergy 42 6034254 T78.49XA [id number] Shade VANEGAS, Nitin [facility] AM#1 POS [address] [place] [address] 04/02/2018 14:24:14 04/02/2018 15:10:58 Adult health examination 926295512 Z00.00 Migraine [id number] G43.90 9 [id number] Timbo Mckeon DO [facility]#1 POS [address] [facility],[address] [place] [address] 12/11/2018 16:42:55 12/11/2018 17:56:44 Bladder muscle dysfunction - overactive 608838352 N32.81 she has urinary incontinen ce and requesting a refill of the detrol, this has helped her in the past Body mass index 30+ - obesity 584570869 Z68.39 The patient's current weight is 209# with a height of 5' 1.25 and a correspond ing BMI (Body Mass Index) of 39.2. The medical definition of Obesity is a BMI greater than 30. Your [place] Body Weight is approximat malinda about 116#. A reduced calorie, reduced carbohydra te weight reduction diet as well as increased activity.. She was previously on Topamax for migraine prophylaxi s and was able to lose a significan t amount of weight with the Topamax. This was stopped secondary to her intact fertility. She states that she does not desire to have any further children and nor does her . I suggested that they pursue vasectomy and then she can be placed back on the Topamax for both migraine prophylaxi s and weight loss. Migraine 04848044 G43.90 9 see the above plan [id number] Timbo Mckeon DO [facility]#1 POS [address] [facility],[address] [place] [address] 12/18/2018 09:57:19 12/18/2018 11:37:10 Adult health examination 492512088 Z00.00 Female Complete Physical Exam: I discussed general recommenda tions: ABCDEF's of Skin Cancer Screening, A (asymmetry ), B (border irregulari ty), C (color deeply pigmented or widely varied in pigmentati on), D (increase in diameter or size of the mole), E (elevation or is the lesion getting taller), F (friabilit y - does it tend to bleed easily), use of sun screen to reduce the risk of skin cancer, seat belt use, glaucoma screening every 1-2 years between 40 - 50 years of age and annually after 50 years of age, annual gynecologi c exam, pap smear every 1 - 3 years, self-breas t exam, colon cancer screening with colonoscop y every 10 years after 50 years of age, FIT or fecal occult blood testing annually after 40 years of age, mammograph y every 1-2 years between 40 - 50 years of age and annually after 50 years of age, exercise, diet. Achieve/ma intain ideal body weight. [place] body weight is about 116 pounds,Adv anced directives : I gave the patient the form for LIVING WILL and health power of regulatory attorney from the [place] state [employer], the patient does want to be resuscitat ed but the patient does not want to be maintained on chronic life support if there is little hope of meaningful recovery. Active or passive immunization 949310881 Z23 Flu vaccine today, She is up to date with the Tdap Body mass index 30+ - obesity 323664479 Z68.38 The patient's current weight is 206.75# with a height of 5' 1.25 and a correspond ing BMI (Body Mass Index) of 38.7. The medical definition of Obesity is a BMI greater than 30. Your [place] Body Weight is approximat malinda about 116#. A reduced calorie, reduced carbohydra te weight reduction diet as well as increased activity.. She has lost about 3# since the last visit Hyperhidro sis of axilla 143215452 L74.510 Drysol Jessie.ly to axilla once daily at first and then about three times per week, do not apply to fresh shaven skin. Elevated blood-pressure reading without diagnosis of hypertension 489201954 R03.0 I encouraged the patient to check the blood pressure and log the results. Please follow a reduced sodium diet and maintain/a chieve ideal body weight. [id number] Malka VANEGAS, Cali Carter [facility] [place] POS [address] [place] [address] 07/30/2019 10:48:16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 09:49:08 06/16/2021 10:29:49 [id number] [place] MEDICAL TECHNICIAN ASSISTANT, Sejal [facility] - BEHAVIORA L [facility] [address] [place] [address] [id number] 7 07/14/2021 09:50:18 07/14/2021 10:30:10 [id number] Teddy VANEGAS, [facility] POS [address] [place] [address] 07/26/2021 09:26:14 07/26/2021 15:15:31 Mixed anxiety and depressive disorder [id number] F41.8 Pt on stable dose of 90 mg duloxetine , 50 mg hydroxyzin e. Pt to continue with therapist. All medication s renewed. Pt concerned about that new physical symptoms may be related to side effects of medication s, advised that they are likely not related to medication s given duration. Recommende d medical appointmen t for further evaluation . Pt feels mood is improved. Daughter has been fully weaned. Pt reports some difficulty sleeping, taking melatonin OTC, could consider trazodone in the future.Of note, pt and family are moving to [facility] in , will need to establish care locally at that time. [id number] Sejal Downing LCPC [facility] [address] [place] [address] 08/11/2021 09:47:30 08/11/2021 10:29:54 [id number] Sejal Downing [facility] [address] [place] [address] 09/08/2021 09:48:56 09/08/2021 10:29:55 Health Concerns Section Related Observation LastModified by Organization Detai ls LastModified Time None Recorded Concern Status LastModified by Organization Details LastModified Time None Recorded Advance Directives Directive N: I gave her the form for t he Living Will and Health Power of Child Care Centre Director, She does want to be resuscitated. She does not want to be maintained on chronic life support if there is little hope of a meaningful recovery. - 12/18/2018 Payers Encounter Date Sequence Insurance Name Policy Number Policy Mayorga Covered Member ID Mayorga Member ID Guarantor Name 01/04/2021 1 [employer] - DOS PRIOR TO 2024 - [employer] () Alice Kaveh [id number] Alice Linn 03/01/2021 1 [employer] - DOS PRIOR TO 2024 - [employer] () Alice Kaveh [id number] Alice L Kaveh 03/15/2021 1 [employer] - DOS PRIOR TO 2024 - [employer] () Alice Kaveh [id number] Alice Reyes [place] 04/12/2021 1 [employer]AST - DOS PRIOR TO 2024 - [employer] () Alice Kaveh [id number] Alice Reyes [place] 07/26/2021 1 [employer]AST - DOS PRIOR TO 2024 - [employer] () Alice Kaveh [id number] Alice Linn Notes Date Note Type Note Provider Name [...] old, planning to allow self-weaning Teddy VANEGAS, [address], [place], [address], [facility] 03/29/2021 16:05:30 03/01/2021 text/html 40 [...] or vasectomy for Teddy VANEGAS, [address], [place], [address], [facility] 03/29/2021 14:47:01 04/12/2021 text/html 40 [...] on son's birthday Teddy VANEGAS, [address], [place], [address], [facility] Richard [facility] 05/17/2021 14:43:47 07/26/2021 text/html 40 y/o F with MH x anxiety and depressive disorder in psych clinic for follow up. Mixed anxiety and depressive disorder- mood stable- feels that she now reacts better, reacted calmly when she had to call furniture restorer to inform that daughter is sick- reports feeling static-y in head , dry mouth, having pins and needles in hands , wondering if it is medication side effect- weaned daughter- problems sleeping, taking melatonin- reassigned to [place], moving in September/October- oldest son will start at [employer] in the fall- excited about changes but also concerned about the stress Teddy VANEGAS, [address] [facility],[address], [place], [address], [facility] 08/02/2021 15:47:04 OBGyn Episode Ob Episode Information Episode Created Date Number of Fetuses Patient Bloodtype Patient rh Status Prepregnancy Weight lbs Domestic Partner Domestic Partner Phone Father Name Pot Liner Status 01/12/20 16 1 CLOSED Fetus Data First Name Last Name Admitted to NICU Weight (g) Sex Living Outcome Pediatric Complications Fetus ID Race Codes Race Delivery Type 3798.83 3 M Full Term [id number] Vaginal Suleiman Calculation Initial Suleiman Date Initial Exam Date Initial Exam Provider Initial Ultrasound Date Last Menstrual Period Date Ultra Sound Weeks Gestation 0 Eighteen To Twenty Week Suleiman Update [...] Domestic Partner Domestic Partner Phone Father Name Pot Liner Status 01/12/20 16 1 CLOSED Fetus Data First Name Last Name Admitted to NICU Weight (g) Sex Living Outcome Pediatric Complications Fetus ID Race Codes Race Delivery Type 3316.89 15 M Full Term [id number] Vaginal Suleiman Calculation Initial Suleiman Date Initial Exam Date Initial Exam Provider Initial Ultrasound Date Last Menstrual Period Date Ultra Sound Weeks Gestation 0 Eighteen To Twenty Week Suleiman Update [...] Domestic Partner Domestic Partner Phone Father Name Pot Liner Status 08/04/19 20 1 O Positive CLOSED Fetus Data First Name Last Name Admitted to NICU Weight (g) Sex Living Outcome Pediatric Complications Fetus ID Race Codes Race Delivery Type Meg 3061.74 6 F [id number] Vaginal Problems Problem Notes 02/03 poss expo sure COVID testintg 02/03 negGDM 3hr GTT pos On insultin, 01/20 increas 12 u qhsAMA, Elevated BMI Del 39+wk, Serial growth u/s. Weekly BPP, NST2/wkHarmony low riskH/O migraine TURNER, H/O depression, stopped all meds.[id number] tea Flu vaccine 01/05/20c/o pressureExposure to Detrol and Alcohol early first trim Problem Name Start Date End Date Resolution Snomed Code Not e Gestational diabetes mellitu s class A2 01/30/2020 [id number] Suleiman Calculation Initial Suleiman Date Initial Exam Date Initial Exam Provider Initial Ultrasound Date Last Menstrual Period Date Ultra Sound Weeks Gestation 03/09/2020 08/04/2019 08/04/2019 06/03/2019 9 Eighteen To Twenty Week [...] in lbs Pre/Post Dialysis Refused With clothes 201.662107196615 BP Diastolic BP Location Tested BP Systolic BP Type 80 R arm 138 sitting Fetus Heart Rate Present Fetus Movement Comments Initial ob visit -In office ob dating us today - c/o nausea. Ob u/s reviewed, show viable iup consistent with LMP dating. Reviewed with patient. Nausea, cont. Able to tolerate some po. Reviewed [place], patient would like to proceed. Reviewed diet and course. f/u 2wk, [place] next visit. labs next visit. Flowsheet Date 08/18/2019 Jackson Score Blood Edema Fundus Height Fundus Units Glucose Ketones Leukocytes Nitrite Labor Signs Protein Cervic Dilation Cervic Effacement Cervic Station none neg Type Weight in lbs Pre/Post Dialysis Refused With clothes 202.904450396290 BP Diastolic BP Location Tested BP Systolic BP Type 78 R arm 130 sitting Fetus Heart Rate Present A 150 Fetus Movement Comments ob/fu -Initial ob labs drawn today- c/o pelvic cramping due to constipation on Saturday, Dr. Marquez prescribed Dulcolax (bisacodyl) 5 mg tablet,delayed release. Pt has been feeling better. No other c/o. labs today. [place] test reviewed. Patient would like to proceed. N/V much improved. PTL signs and symptoms reviewed. f/u 5wk. Flowsheet Date 09/22/2019 Jackson Score Blood Edema Fundus Height Fundus Units Glucose Ketones Leukocytes Nitrite Labor Signs Protein Cervic Dilation Cervic Effacement Cervic Station trace none neg Type Weight in lbs Pre/Post Dialysis Refused With clothes 205.174281557317 BP Diastolic BP Location Tested BP Systolic BP Type 80 L arm 132 sitting Fetus Heart Rate Present A 150 Fetus Movement Comments ob/fu - nausea has decreased . c/o pelvic pain when standing or shifting side to side in bed. Reviewed [place] neg. No other c/o. PTL signs and symptoms reviewed. Sched [facility] u/s. f/u 4wk. Flowsheet Date 10/20/2019 Jackson Score Blood Edema Fundus Height Fundus Units Glucose Ketones Leukocytes Nitrite Labor Signs Protein Cervic Dilation Cervic Effacement Cervic Station 20 none neg Type Weight in lbs Pre/Post Dialysis Refused With clothes 208.37352646670 BP Diastolic BP Location Tested BP Systolic BP Type 78 R arm 120 sitting Fetus Heart Rate Present A 150 Fetus Movement A Yes Comments ob/fu - MFM scheduled on 10/26. c/o continues to have nausea, frequent crackling in her right ear, nasal congestion, mild nose bleeds. No other c/o. Exam neg, TM neg. recommend saline mist. [facility] u/s sched 10/26. PTL signs and [...] in lbs Pre/Post Dialysis Refused With clothes 206.423929564418 BP Diastolic BP Location Tested BP Systolic BP Type 72 L arm 124 sitting Fetus Heart Rate Present A 150 Fetus Movement A Yes Comments Glucose and cbc labs today. Ingrown hair has been having some discomfort. Exam neg. 1hr gluc today. Reviewed [facility] u/s. PTL signs and symptoms reviewed. f/u 2wk. Flowsheet Date 12/08/2019 Jackson Score Blood Edema Fundus Height Fundus Units Glucose Ketones Leukocytes Nitrite Labor Signs Protein Cervic Dilation Cervic Effacement Cervic Station none neg Type Weight in lbs Pre/Post Dialysis Refused With clothes 208.502575628292 BP Diastolic BP Location Tested BP Systolic BP Type 70 L arm 118 sitting Fetus Heart Rate Present A 150 Fetus Movement A Yes Comments ob fu. No complains. Reviewe d 3hr gtt pos. refer to [facility], dietitian. Send glucometer, chem strips, lancets. [...] in lbs Pre/Post Dialysis Refused With clothes 207.024012096294 BP Diastolic BP Location Tested BP Systolic BP Type 72 L arm 124 sitting Fetus Heart Rate Present A 145 Fetus Movement A Yes Comments Pt c/o pain on hips when sle eping. Occ tightening muscle on ankle and foot. Denies other c/o. MFM u/s reviewed. BS fasting intermitt elevated, adjusting diet per game designer. PTL signs and symptoms reviewed. f/u 2wk. Flowsheet Date 01/05/2020 Jackson Score Blood Edema Fundus Height Fundus Units Glucose Ketones Leukocytes Nitrite Labor Signs Protein Cervic Dilation Cervic Effacement Cervic Station 32 none neg Type Weight in lbs Pre/Post Dialysis Refused With clothes 205.660083525878 BP Diastolic BP Location Tested BP Systolic [...] in lbs Pre/Post Dialysis Refused With clothes 205.541589602171 BP Diastolic BP Location Tested BP Systolic BP Type 72 L arm 112 sitting Fetus Heart Rate Present A 135 Fetus Movement A Yes Comments Ob f/u, c/o still having leg cramps. States had episode of dizziness resolved after Juice. BS has been better. NST reactive. MF u/s schedule for next . PTL signs [...] in lbs Pre/Post Dialysis Refused With clothes 205.569389642757 BP Diastolic BP Location Tested BP Systolic BP Type Fetus Heart Rate Present A 150 Fetus Movement A Yes Comments Ob/fu - c/o dizziness, Mild bilateral swelling on hands and feet, sinus pressure occasional, using antihistamine as needed. BS occas elevated, insulin adjusted per MF. Recently hospitalized for dizziness, echo neg, holter [...] in lbs Pre/Post Dialysis Refused With clothes 204.398538961642 BP Diastolic BP Location Tested BP Systolic [...] in lbs Pre/Post Dialysis Refused With clothes 205.006815260695 BP Diastolic BP Location Tested BP Systolic BP Type 76 L arm 124 sitting Fetus Heart Rate Present A 140 Fetus Movement A Yes Comments ob/fu -NST today - Pt was se en by MFM on Saturday02/09/2020 - Covid 19 test was [...] in lbs Pre/Post Dialysis Refused With clothes 205.647359262440 BP Diastolic BP Location Tested BP Systolic [...] in lbs Pre/Post Dialysis Refused With clothes 201.742492207282 BP Diastolic BP Location Tested BP Systolic BP Type 80 L arm 120 sitting Fetus Heart Rate Present A 145 Fetus Movement A Yes Comments ob/fu - Pt was at [facility] L[facility] on Saturday due to having [...] in lbs Pre/Post Dialysis Refused With clothes 192.350424798971 BP Diastolic BP Location Tested BP Systolic [...] 09/22/2019 Toxoplasmosis precautions (cats/raw meat) [email or web address] 09/22/2019 Gnosticist [email or web address] 09/22/2019 Hospital choice [email or web address] 09/22/2019 Blood [...]
== END 2024-05-07 13:02 | disposition home or self-care (01) ==
LOC: HO.NEURO 13:01
PROVIDERS: PCP Internal Medicine; Visit Provider Internal Medicine
DX: R20.2 Paresthesia of skin (principal)
CPT/HCPCS: 95886; 95911

== ENCOUNTER → 2024-05-07 13:06 | Outpatient (BNV) | payer OTHER, SELFPAY | PROVIDERS: PCP Internal Medicine; Visit Provider Physical Medicine & Rehabilitation | DX: G56.01 Carpal tunnel syndrome, right upper limb (principal); R20.0 Anesthesia of skin; R20.2 Paresthesia of skin | CPT/HCPCS: 95886; 95911 ==

== ENCOUNTER 2024-05-08 13:05 | Outpatient (AMB) | payer OTHER, SELFPAY ==
--- NOTE | 2024-05-08 14:04 | A.OFFPSYCH_ITS ---
Intake Intake Visit Reasons: follow up Piano Sounding Board Matcher Required: No Allergies latex Adverse Reaction (Mild, Verified 04/20/24 10:57) hives Medication List - Last Reconciled 05/08/24 by Lynn Kemp APRN duloxetine 90 mg (3 x 30 mg) PO DAILY 30 days lisinopril-hydrochlorothiazide 10-12.5 mg 1 tab PO DAILY magnesium oxide 400 mg PO DAILY 30 days mirtazapine 7.5 mg PO BEDTIME 30 days Myrbetriq ER (mirabegron) 50 mg PO DAILY NS prazosin 2 mg PO BEDTIME 30 days HPI- Psychiatric Chief Complaint: follow up HPI Narrative: much improved since hospital admission and med changes; she is more hopeful; tolerating meds without side effects; mood improved; anxiety improved; no intrusive thoughts about hurting self; no SI or HI. pt reports she still struggles with ADHD symptoms; she is easily distracted; inattentive and forgetful at times; Past Psychiatric History: outpt tx since age 22. No IPLOC PAST MEDICTIONS: lexapro- increased anger wellbutrin- very negative/angry zoloft- woorked first time took - did not work on retrial prozac- ok for a bit and then stopped working effexor- excessive weight gain Subjective Subjective Subjective Medication Compliance: Yes Side effects from medications: No Review of Systems Medical Review of Systems: unchanged Mental Status Exam Mental Status Exam Patient Appearance: Well Grooomed and Appropriate Patient Orientation: Person, Place, Time and Situation Level of Consciousness: Awake, Appropriate and Restless Patient Behavior: Appropriate, Talkative, Cooperative and Anxious Mood Description: Cheerful and Anxious Affect Description: Cheerful and Anxious Patient Cognition Impaired: No Ability to Follow Directions: Good Speech Pattern: Clear, Appropriate and Rambling Memory Description: Intact Hallucinations: None Delusions: Not Present Thought Process: Intact Thought Content: positive for Intact Judgement: Good Assessment and Plan Assessment & Plan (1) SAMMY (generalized anxiety disorder): Status: Acute Code(s): F41.1 - Generalized anxiety disorder (2) Major depressive disorder, recurrent, moderate: Status: Acute Code(s): F33.1 - Major depressive disorder, recurrent, moderate Plan r/o ADHD Medications: New hydroxyzine HCl 25 mg PO TID PRN 90 tabs 1RF itching Refilled duloxetine 90 mg (3 x 30 mg) PO DAILY 30 days 90 caps 0RF mirtazapine 7.5 mg PO BEDTIME 30 days 30 tabs 0RF prazosin 2 mg PO BEDTIME 30 days 30 caps 0RF Counseling and coordination of Care Pt. Self Management counseling: Mod caffeine/ETOH intake, Sleep hygiene and General coping skills Medication management counseling: Effectiveness, Side effects, Dosing range, Duration, Drug interaction and Adherence Diagnosis and Prognosis Counseling: Accuracy of diagnosis, Prognosis over time, Impact of diagnosis on life functions, Impact of family relationship, Problematic behaviors secondary to diagnosis and Adequacy of current interventions Details: I spent 45 minutes reviewing the record, seeing the patient and documenting in the medical record. Counseling provided to the patient/caregiver as outlined below. Addressed patient/caregiver concerns regarding current medication regime including effe ctive adherence. Addressed patient/caregiver concerns regarding diagnosis and prognosis including accuracy of diagnosis, prognosis over time, impact of diagnosis. Addressed patient/caregiver concerns regarding impact of recent stressors. [facility] Medical History (Updated 05/08/24 @ 17:25 by Lynn Kemp APRN) Major depressive disorder, recurrent, severe with psychotic features Decreased hearing Tinnitus Reduced visual acuity Pyelonephritis (03/22/15) (08/04/19) Obesity (12/12/18) Migraine Menorrhagia Irritable bowel syndrome Insomnia Hiatal hernia Hemorrhoids Gastroesophageal reflux disease Fracture of hand (04/22/09) Female stress incontinence Blood in urine Severe carpal tunnel syndrome of right wrist Medical clearance for psychiatric admission Hypertriglyceridemia Positive Tinel's sign Positive Phalen maneuver Cervicalgia HTN (hypertension) Decreased hearing of both ears Environmental and seasonal allergies Tinnitus of both ears Knee pain Excessive daytime sleepiness Loud snoring Vitamin D deficiency Impaired fasting glucose Mixed dyslipidemia Morbid obesity Hiatal hernia with gastroesophageal reflux Family history of premature CAD Annual visit for general adult medical examination with abnormal findings Anxiety and depression Surgical History H/O endoscopy H/O wisdom tooth extraction Family History Father Substance use disorder Mental health disorder Alcoholism Myocardial infarction acute, Onset Age: 56 Depression Maternal Uncle Testicular cancer Social History Household Members: Family Household Members Other:: and 2 children Housing: House Do you presently have visiting nurse or other home services: No Alcohol intake: current Alcohol intake frequency: holidays/special occasions only Patient Tobacco Use Status: Never used Tobacco e-Cigarette/Vaping Use: Never Used Substance Use Type: Marijuana service: No Current occupational status: unemployed and other Sexual orientation: Straight/Heterosexual Gender identity: Female Cognitive needs: No Hearing needs: No Vision needs: Yes Social History: and has 3 children age 21, 16, 4. 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 family has moved around a lot due to pt grew up in [place]. lived with both parents; after her father lost his job they all moved in with grandmother; family experienced severe poverty- very traumatic. no running water, no food, no electricity at times. no telephone, no flushing toilets no lights. Father became ETOHIC and massive heart attack at age 55. Pt has 3 siblings. Substance History: none Trauma History: childhood severe poverty Coding Level of Care Code Est Pt Level 5 (30457) Diagnoses SAMMY (generalized anxiety disorder) F41.1 Major depressive disorder, recurrent, moderate F33.1
--- OUTSIDE RECORDS SUMMARY | 2024-05-08 15:38 | XMS_ITS | Continuity of Care Document ---
Author Name [facility] Organization [facility] Care Team Providers Care Offal Roller Name Role Phone [facility] Unavailable Unavailable Medications Combined list of outpatient [...] CITRON PHARMA L, 500 ea. BOTTLE Active [id number] 4 2023 10 Pharmac y Data Transac tion Service Facilit y Benzonatate ([employer]) 100 CAPSULE in 1 BOTTLE Active [id number] 06/26/19 2 4 2023 60 Pharmac y Data Transac tion Service Facilit y DIAZEPAM (DIAZEPAM), 5MG, TABLET, ORAL, IVAX PHARMACEUT, 100 ea. BOTTLE Active [id number] 4 2023 10 Pharmac y Data Transac tion Service Facilit y DULOXETINE HCL (DULOXETINE HCL), 60 MG, CAPSULE DR, ORAL, BRECKENRIDG E, 90 ea. BOTTLE Active [id number] 4 2023 90 Pharmac y Data Transac tion Service Facilit y DULOXETINE HCL (DULOXETINE HCL), 60 MG, CAPSULE DR, ORAL, BRECKENRIDG E, 90 ea. BOTTLE Active [id number] 4 2023 90 Pharmac y Data Transac tion Service Facilit y LIDOCAINE (lidocaine) , 5 %, ADH. PATCH, TOPICAL, AMNEAL PHARMACE, 30 ea. BOX Active [id number] 4 2023 30 Pharmac y Data Transac tion Service Facilit y LISINOPRIL (lisinopril ), 10 MG, TABLET, ORAL, LUPIN PHARMACEU, 1000 ea. BOTTLE Active [id number] 4 2023 30 Pharmac y Data Transac tion Service Facilit y LISINOPRIL (lisinopril ), 10 MG, TABLET, ORAL, LUPIN PHARMACEU, 1000 ea. BOTTLE Active [id number] 4 2023 30 Pharmac y Data Transac tion Service Facilit y LISINOPRIL (LISINOPRIL ), 5MG, TABLET, ORAL, LUPIN PHARMACEU, 1000 ea. BOTTLE Active [id number] 3 2022 30 Pharmac y Data Transac tion Service Facilit y LISINOPRIL (LISINOPRIL ), 5MG, TABLET, ORAL, LUPIN PHARMACEU, 1000 ea. BOTTLE Active [id number] 4 2023 30 Pharmac y Data Transac tion Service Facilit y LISINOPRIL- HCTZ (LISINOPRIL /HYDROCHLOR OTHIAZIDE), 10-12.5MG, TABLET, ORAL, LUPIN PHARMACEU, 100 ea. BOTTLE Active [id number] 4 2023 30 Pharmac y Data Transac tion Service Facilit y LISINOPRIL- HCTZ (LISINOPRIL /HYDROCHLOR OTHIAZIDE), 10-12.5MG, TABLET, ORAL, LUPIN PHARMACEU, 100 ea. BOTTLE Active [id number] 4 2023 30 Pharmac y Data Transac tion Service Facilit y SULFAMETHOX AZOLE-TRIME THOPRIM (sulfametho xazole/trim ethoprim), 800-160 MG, TABLET, ORAL, RISING PHARM, 100 ea. BOTTLE Active [id number] 4 2023 14 Pharmac y Data Transac tion Service Facilit y Allergies, Adverse Reactions, Alerts Combined list of allergies from Department of Defense and Veterans Affairs facilities. It does not include entries that were removed or entered in error. Substance Category Reaction Severity Reaction type Status Date Reported Comments Source acetaminophe n-hydrocodon e Drug allergy Active One or More [facility] Facilities [facility] ADHESIVES Propensity to adverse reaction (finding) active 0 [facility] Adhesives Allergy to substance Active One or More A Facilities [facility] HYDROCODONE Drug allergy (disorder) active 0 [facility] Latex Drug allergy Active One or More A Facilities [facility] LATEX GLOVE Propensity to adverse reactions to drug (finding) active 0 [facility] VICODIN Propensity to adverse reactions to drug (finding) active 0 [facility] Immunizations Combined list of available immunizations from the Department of Defense and Veterans Affairs facilities. Immunization Series Date Given Administered By Site Reaction Lot Number CVX Code Drug Vp Mobile Products Status Comments Source COVID-19, mRNA, LNP-S, PF, 30 mcg/0.3 mL dose 2020 GLUSHBusbud [place] (PFR) Not Given COVID-19, mRNA, LNP-S, PF, 30 mcg/0.3 mL dose DoD COVID-19, mRNA, LNP-S, PF, 30 mcg/0.3 mL dose 2020 GLUSHAKSharypic [place] (PFR) Not Given COVID-19, mRNA, LNP-S, PF, 30 mcg/0.3 mL dose DoD COVID-19, mRNA, LNP-S, PF, 30 mcg/0.3 mL dose 2020 GLUSHAKSharypic [place] (PFR) Not Given COVID-19, mRNA, LNP-S, [...] months. 2) Encounters from the Department of [facility] facilities going back up to 280 months. Location Location Details Encounter Type Encounter Number Reason For Visit Attending Provider ADM Date DC Date Status Disposition Source One or More A Facilitie s LEATHER FLES[facility] History 04/22 One or More A Facilit ies [facility] Ambulator y Pharmacy [facility] [id number] 05/13 Ambulat ory Pharmac y Procedures Combined list of: 1) Procedures from Department of Veterans Affairs facilities going back up to thelast 18 months, not all [place] non-surgical procedures are included; 2) All procedures [...] Plan No data available for this section 05/08/2024 Ambulatory Pharmacy Functional Status Combined list of recent functional and cognitive assessments recorded at [facility] Defense and [facility] ([facility]).[facility] Functional [place] Measurement (FIM) Scale: 1 = Total Assistance (Subject = 0% +), 2 = Maximal Assistance (Subject = 25% +), 3 = Moderate Assistance (Subject = 50% +), 4 = Minimal Assistance (Subject = 75% +), 5 = Supervision, 6 = Modified [place] (Device), 7 = Complete [place] (Timely, Safely). Assessment Date/Time Source Assessment Type Assessment Skill Assessment Score Assessment Details No data available for this section
== END 2024-05-08 14:18 | disposition home or self-care (01) ==
LOC: HO.HOP 13:05
PROVIDERS: PCP Internal Medicine; Visit Provider Clinical Nurse Specialist Psychiatric/Mental Health
DX: F41.1 Generalized anxiety disorder (principal); F33.1 Major depressive disorder, recurrent, moderate
CPT/HCPCS: 99215

== ENCOUNTER → 2024-05-08 13:05 | Outpatient (BNVA) | payer OTHER, SELFPAY | PROVIDERS: PCP Internal Medicine; Visit Provider Clinical Nurse Specialist Psychiatric/Mental Health | DX: F41.1 Generalized anxiety disorder (principal); F33.1 Major depressive disorder, recurrent, moderate | CPT/HCPCS: 99212 ==

== ENCOUNTER 2024-05-15 09:00 | Outpatient (AMB) | payer OTHER, SELFPAY ==
--- NOTE | 2024-05-15 08:58 | A.OFFPC_ITS ---
Intake Visit Reasons: f/u anxiety and depression Intake Note: Pt is having a telehealth visit to f/u anxiety and depression Allergies latex Adverse Reaction (Mild, Verified 05/16/24 02:55) hives Medication List - Last Reconciled 05/15/24 by Arelis Serrano MD duloxetine 90 mg (3 x 30 mg) PO DAILY 30 days hydroxyzine HCl 25 mg PO TID PRN lisinopril-hydrochlorothiazide 10-12.5 mg 1 tab PO DAILY magnesium oxide 400 mg PO DAILY 30 days mirtazapine 7.5 mg PO BEDTIME 30 days Myrbetriq ER (mirabegron) 50 mg PO DAILY NS prazosin 2 mg PO BEDTIME 30 days Tobacco use date assessed: 05/15/24 Dental Screening Dental Screen Date: 05/15/24 Did you have a dental visit in the last 12 months?: No Did you have a dental problem in the last 6 months where you did not have access to dental care?: No Was dental information given to patient?: No HPI f/u anxiety and depression HPI Details - The patient is a 43-year-old female pr esenting for follow-up after recent hospital admission for depression with anxiety and suicidal ideations. - patient attributes these symptoms, inc luding suicidal ideation from increased duloxetine dose, - Duloxetine dose was reduced, now at 90 mg daily, with mirtazapine 7.5 mg at bedtime and prazosin 2 mg at bedtime added by her psychiatrist Meka Barkley, leading to improved sleep without grogginess upon awakening, and improvement in her mood. Denies any suicidal ideations at present time. - she has hypertension with blood pressu re stable and controlled on lisinopril- HCTZ at the same dose takes Myrbetriq ER 50 mg daily which helps control her urinary incontinence - complains of pain in her right wrist, worse at night. Has been taking ibuprofen 400 mg alternating with Tylenol, affording only temporary relief. She does have an appointment for orthopedic consult scheduled next month for evaluation and treatment of her severe carpal tunnel syndrome - has hypertriglyceridemia, takes OTC f domonique oil supplements and adjusts vitamin D intake following deficiency with improvement in her triglyceride levels as well as liver enzymes noted on recent labs done. [facility] Medical History (Updated 05/15/24 @ 09:30 by Arelis Serrano MD) Major depressive disorder, recurrent, severe with psychotic features Decreased hearing Tinnitus Reduced visual acuity Pyelonephritis (03/22/15) (08/04/19) Obesity (12/12/18) Migraine Menorrhagia Irritable bowel syndrome Insomnia Hiatal hernia Hemorrhoids Gastroesophageal reflux disease Fracture of hand (04/22/09) Female stress incontinence Blood in urine Severe carpal tunnel syndrome of right wrist Medical clearance for psychiatric admission Hypertriglyceridemia Positive Tinel's sign Positive Phalen maneuver Cervicalgia HTN (hypertension) Decreased hearing of both ears Environmental and seasonal allergies Tinnitus of both ears Knee pain Excessive daytime sleepiness Loud snoring Vitamin D deficiency Impaired fasting glucose Mixed dyslipidemia Morbid obesity Hiatal hernia with gastroesophageal reflux Family history of premature CAD Annual visit for general adult medical examination with abnormal findings Anxiety and depression Surgical History H/O endoscopy H/O wisdom tooth extraction Family History Father Substance use disorder Mental health disorder Alcoholism Myocardial infarction acute, Onset Age: 56 Depression Maternal Uncle Testicular cancer Social History Household Members: Family Household Members Other:: and 2 children Housing: House Do you presently have visiting nurse or other home services: No Alcohol intake: current Alcohol intake frequency: holidays/special occasions only Patient Tobacco Use Status: Never used Tobacco e-Cigarette/Vaping Use: Never Used Substance Use Type: Marijuana service: No Current occupational status: unemployed and other Sexual orientation: Straight/Heterosexual Gender identity: Female Cognitive needs: No Hearing needs: No Vision needs: Yes Questionnaire PHQ-9 Over the last 2 weeks, how often have you been bothered by any of the following problems? 1. Little interest or pleasure in doing things: not at all 2. Feeling down, depressed, or hopeless: not at all 3. Trouble falling or staying asleep, or sleeping too much: not at all 4. Feeling tired or having little energy: not at all 5. Poor appetite or overeating: not at all 6. Feeling bad about yourself - or that you are a failure or have let yourself or your family down: not at all 7. Trouble concentrating on things, such as reading the newspaper or watching television: not at all 8. Moving or speaking so slowly that other people could have noticed. Or the opposite - being so fidgety or restless that you have been moving around a lot more than usual: not at all 9. Thoughts that you would be better off or of hurting yourself in some way: not at all Total score: 0 Depression Screening Interpretation: Negative Depression Screening Done: Yes 42853 - PHQ-9 Billing: Yes Source: Developed by Drs. Charles Gerardo, Negrita Kunz, Horacio Interiano and colleagues, with an educational ventura from [employer]. Thrive Questionnaire Date Thrive assessed: 05/15/24 I am a: Patient What is your living situation today?: I have a steady place to live Within the past 12 months, did the food you bought not last and you didn't have the money to get more?: Never true Within the past 12 months, did you worry whether your food would run out before you got money to buy more?: Never true Do you have trouble paying for medicines?: No Do you have trouble getting transportation to medical appointments?: No Do you have trouble paying your heating and electricity bill?: No Do you have trouble taking care of your child, family member or friend?: No Do you have trouble with day-to-day activities such as bathing, preparing meals, shopping, managing finances, etc.?: Yes Are you currently unemployed and looking for a job?: I choose not to answer this question Are you interested in more education?: Yes Please select the resources that you would like help with: Daily support Currently or been in a relationship where the following occur: No concerns reported THRIVE Score: 0 AUDIT C Alcohol Use Questionnaire (AUDIT-C) 2. How many drinks containing alcohol do you have on a typical day when you are drinking?: 1 or 2 3. How often do you have six or more drinks on one occasion?: Less than monthly Total Score: 1 SAMMY-7 AMB Questionnaire SAMMY-7 Date SAMMY - 7 assessed: 05/15/24 Feeling nervous, anxious, or on edge: 0 = Not at all Not being able to stop or control worryin = Not at all Worrying too much about different things: 0 = Not at all Trouble relaxin = Not at all Being so restless that it is hard to sit still: 0 = Not at all Becoming easily annoyed or irritable: 0 = Not at all Feeling afraid as if something awful might happen: 0 = Not at all Total SAMMY-7 score (0-4 normal; 5-9 mild; 10-14 moderate; 15-21 severe): 0 Source: Developed by Drs. Charles Gerardo, Negrita Kunz, Horacio Interiano and colleagues, with an educational ventura from [employer]. SAMMY-7 Assessment Billing SAMMY-7 Assessment Tool: SAMMY-7 Assessment 32394 Review of Systems Const Denies headache(s) and Denies weakness Eyes Denies change in vision ENT Denies dizziness, Denies headache(s), Denies nasal congestion, Denies nasal discharge and Denies sore throat Card Denies chest pain, Denies lightheadedness, Denies palpitations and Denies dyspnea Resp Denies chest congestion, Denies cough, Denies dyspnea and Denies wheezing GI Denies abdominal pain, Denies change in bowel habits and Denies heartburn Denies urinary frequency, Denies dysuria and Denies urinary urgency Musc Reports no additional complaints and Reports as per HPI Skin/Breast Denies breast pain, Denies breast mass, Denies lesions and Denies rash Neuro Denies dizziness, Denies headache(s), Denies focal weakness and Denies weakness Psych Reports no additional complaints Endo Denies polydipsia, Denies polyuria and Denies palpitations Ricardo/Lymph Reports no additional complaints Aller/Immun Denies wheezing Physical exam (Primary Care) Tobacco/Smoking Status: Tobacco use Status Tobacco use date assessed 05/15/24 05/15/24 08:59 Patient Tobacco Use Status Never used Tobacco 05/15/24 08:59 e-Cigarette/Vaping Use Never Used 05/15/24 08:59 PHQ-9: PHQ-9 Score PHQ-9: Total score 0 05/15/24 09:19 Depression Screening Interpretation: Negative Thrive Assessment: Date of Thrive Assessment Date Thrive assessed 05/15/24 05/15/24 08:59 Currently or been in a relationship where the following occur: No concerns reported Telehealth Telehealth Telehealth [facility] Location of provider rendering services: practice address Location of patient: address on file Patient Identification confirmed using: Name, : Yes Telehealth method: video Patient verbally consented to treatment: Yes Patient verbally consented to billing insurance company: Yes Patient informed of any privacy concerns related to visit: Yes Minutes spent on Phone/Video with Pt.: 15 Results Reviewed Results Reviewed: Name: Alice Linn Age/Sex: 43/F : 1980 Unit#: [id number] Attend Dr: Rajesh Connolly MD Re04/24/24 Status: DIS [id number] Disch: 04/29/24 SPEC : [id number] MARK: 04/25/24 STATUS: COMP REQ : [id number] RECD: 04/25/[address]: Yuridia Roche DIRECTOR [employer] COMP: 04/25/24 ENTERED: 04/25/24-[address]: Rajesh Connolly MD Physician,Unknown ORDERED: Liver Panel, Lipid Panel, Free T4, TSH Test Result Flag Reference Total Bili 1.0 0.0-1.0 mg/dL Direct Bili 0.3 0.0-0.5 mg/dL AST (GOT) 35 H 5-31 U/L ALT (GPT) 83 H 0-31 U/L Protein, Total 6.9 6.5-8.0 g/dL Alb 4.1 3.5-5.0 g/dL Triglyceride 241 H <150 mg/dL Desirable Triglyceride: less than 150 mg/dL Borderline High Triglyceride 150-199 mg/dL High Triglyceride: 200-499 mg/dL Very High Triglyceride: greater than or equal to 5OO mg/dL Cholesterol 212 H <200 mg/dL Desirable Cholesterol: less than 200 mg/dL Borderline High Cholesterol: 200-239 mg/dL High Cholesterol: greater than 239 mg/dL LDL Calculated 121 H <100 mg/dL Desirable LDL: less than 100 mg/dL Near Optimal/Above Optimal LDL: 110-129 mg/dL Borderline High LDL: 130-159 mg/dL High LDL: 160-189 mg/dL Very High LDL: greater than or equal to 190 mg/dL HDL 43 >40 mg/dL Desirable HDL: greater than 40 mg/dL Note: This HDL assay may give artificially low results in patients with liver disease. Alk Phos 79 39-117 U/L Free T4 0.80 0.71-1.85 ng/dL TSH 3rd Gen. 1.72 0.32-4.0 uIU/mL TSH 3rd Generation ([facility]) Coding Level of Care Code Tele Est Pt Level 4 (28718) Diagnoses Major depressive disorder, recurrent, moderate F33.1 Severe carpal tunnel syndrome of right wrist G56.01 Hypertriglyceridemia E78.1 Morbid obesity E66.01 Additional Codes SAMMY-7 Assessment Billing - SAMMY-7 Assessment Tool: SAMMY-7 Assessment 22401 ([id number]) PHQ-9 - 27214 - PHQ-9 Billing: Yes ([id number]) Assessment & Plan Assessment & Plan (1) Major depressive disorder, recurrent, moderate: Code(s): F33.1 - Major depressive disorder, recurrent, moderate Category: Medical (2) Severe carpal tunnel syndrome of right wrist: Code(s): G56.01 - Carpal tunnel syndrome, right upper limb Category: Medical (3) Hypertriglyceridemia: Code(s): E78.1 - Pure hyperglyceridemia Category: Medical (4) Morbid obesity: Code(s): E66.01 - Morbid (severe) obesity due to excess calories Category: Medical Plan - Continued on duloxetine at 90 mg, prazosin, hydroxyzine mirtazapine as prescribed by her psychiatrist and observe for any adverse effects. Has an appointment already scheduled for follow-up with Meka Barkley - Maintain blood pressure medication regimen with lisinopril and hydrochlorothiazide. - Use magnesium oxide for Restless Legs Syndrome, monitoring for digestive issues. - Apply diclofenac gel for carpal tunnel pain relief, minimize use of ibuprofen when using gel may continue taking Tylenol as needed. Has an appointment already scheduled with orthopedics. - Monitor and manage triglyceride levels through dietary changes and continue fish oil. - Adjust Vitamin D intake to 5000 IU, three times a week. - Follow-up with a pillowcase cleaner for weight management support. - Report any exacerbation of symptoms or new health issues. Patient was informed and verbally consented to the use of an ambient scribe for clinic note documentation during this visit.
--- OUTSIDE RECORDS SUMMARY | 2024-05-15 09:25 | XMS_ITS | Continuity of Care Document ---
Author Name [facility] Organization [facility] [place] Care Team Providers Care Home Lending Officer Name Role Phone [facility] Unavailable Unavailable Medications Combined list of outpatient [...] CITRON PHARMA L, 500 ea. BOTTLE Active [id number] 4 2023 10 Pharmac y Data Transac tion Service Facilit y Benzonatate ([employer]) 100 CAPSULE in 1 BOTTLE Active [id number] 06/26/19 2 4 2023 60 Pharmac y Data Transac tion Service Facilit y DIAZEPAM (DIAZEPAM), 5MG, TABLET, ORAL, IVAX PHARMACEUT, 100 ea. BOTTLE Active [id number] 4 2023 10 Pharmac y Data Transac tion Service Facilit y DULOXETINE HCL (DULOXETINE HCL), 60 MG, CAPSULE DR, ORAL, BRECKENRIDG E, 90 ea. BOTTLE Active [id number] 4 2023 90 Pharmac y Data Transac tion Service Facilit y DULOXETINE HCL (DULOXETINE HCL), 60 MG, CAPSULE DR, ORAL, BRECKENRIDG E, 90 ea. BOTTLE Active [id number] 4 2023 90 Pharmac y Data Transac tion Service Facilit y LIDOCAINE (lidocaine) , 5 %, ADH. PATCH, TOPICAL, AMNEAL PHARMACE, 30 ea. BOX Active [id number] 4 2023 30 Pharmac y Data Transac tion Service Facilit y LISINOPRIL (lisinopril ), 10 MG, TABLET, ORAL, LUPIN PHARMACEU, 1000 ea. BOTTLE Active [id number] 4 2023 30 Pharmac y Data Transac tion Service Facilit y LISINOPRIL (lisinopril ), 10 MG, TABLET, ORAL, LUPIN PHARMACEU, 1000 ea. BOTTLE Active [id number] 4 2023 30 Pharmac y Data Transac tion Service Facilit y LISINOPRIL (LISINOPRIL ), 5MG, TABLET, ORAL, LUPIN PHARMACEU, 1000 ea. BOTTLE Active [id number] 3 2022 30 Pharmac y Data Transac tion Service Facilit y LISINOPRIL (LISINOPRIL ), 5MG, TABLET, ORAL, LUPIN PHARMACEU, 1000 ea. BOTTLE Active [id number] 4 2023 30 Pharmac y Data Transac tion Service Facilit y LISINOPRIL- HCTZ (LISINOPRIL /HYDROCHLOR OTHIAZIDE), 10-12.5MG, TABLET, ORAL, LUPIN PHARMACEU, 100 ea. BOTTLE Active [id number] 4 2023 30 Pharmac y Data Transac tion Service Facilit y LISINOPRIL- HCTZ (LISINOPRIL /HYDROCHLOR OTHIAZIDE), 10-12.5MG, TABLET, ORAL, LUPIN PHARMACEU, 100 ea. BOTTLE Active [id number] 4 2023 30 Pharmac y Data Transac tion Service Facilit y SULFAMETHOX AZOLE-TRIME THOPRIM (sulfametho xazole/trim ethoprim), 800-160 MG, TABLET, ORAL, RISING PHARM, 100 ea. BOTTLE Active [id number] 4 2023 14 Pharmac y Data Transac tion Service Facilit y Allergies, Adverse Reactions, Alerts Combined list of allergies from Department of Defense and Veterans Affairs facilities. It does not include entries that were removed or entered in error. Substance Category Reaction Severity Reaction type Status Date Reported Comments Source acetaminophe n-hydrocodon e Drug allergy Active One or More [facility] Facilities [employer] ADHESIVES Propensity to adverse reaction (finding) active 0 [facility] Adhesives Allergy to substance Active One or More A Facilities [employer]ING HYDROCODONE Drug allergy (disorder) active 0 [facility] Latex Drug allergy Active One or More A Facilities [employer] LATEX GLOVE Propensity to adverse reactions to drug (finding) active 0 [facility] VICODIN Propensity to adverse reactions to drug (finding) active 0 Esteban [facility] Immunizations Combined list of available immunizations from the Department of Defense and Veterans Affairs facilities. Immunization Series Date Given Administered By Site Reaction Lot Number CVX Code Drug Child And Family Counselor Status Comments Source COVID-19, mRNA, LNP-S, PF, 30 mcg/0.3 mL dose 2020 [facility] [facility] (PFR) Not Given COVID-19, mRNA, LNP-S, PF, 30 mcg/0.3 mL dose [facility] COVID-19, mRNA, LNP-S, PF, 30 mcg/0.3 mL dose [facility] [employer] [employer] [place] (PFR) Not Given COVID-19, mRNA, LNP-S, PF, 30 mcg/0.3 mL dose [facility] COVID-19, mRNA, LNP-S, PF, 30 mcg/0.3 mL dose 2020 [employer] [place] (PFR) Not Given COVID-19, mRNA, LNP-S, PF, 30 mcg/0.3 mL dose [facility] Vital Signs Combined list of inpatient and outpatient Vital Signs from Department of Defense and Veterans Affairs, ranging from 12 months to all on record, depending upon the facility. Vital Sign Value Date Comments Source Systolic Blood Pressure 132mm[Hg] 02/04/2020 20:15:44 Ambulatory Pharmacy Diastolic Blood Pressure 78mm[Hg] 02/04/2020 20:15:44 Ambulatory Pharmacy Procedures Combined list of: 1) Procedures from Department of Veterans Affairs facilities going back up to thelast 18 months, not all [place] non-surgical procedures are included; 2) All procedures [...] Plan No data available for this section 05/15/2024 Ambulatory Pharmacy Functional Status Combined list of recent functional and cognitive assessments recorded at [facility] [place] Functional [place] Measurement (FIM) Scale: 1 = Total Assistance (Subject = 0% +), 2 = Maximal Assistance (Subject = 25% +), 3 = Moderate Assistance (Subject = 50% +), 4 = Minimal Assistance (Subject = 75% +), 5 = Supervision, 6 = Modified [place] (Device), 7 = Complete [place] (Timely, Safely). Assessment Date/Time Source Assessment Type Assessment Skill Assessment Score Assessment Details No data available for this section
== END 2024-05-15 10:41 | disposition home or self-care (01) ==
LOC: HO.HMCC 09:00
PROVIDERS: PCP Internal Medicine; Visit Provider Internal Medicine
DX: G56.01 Carpal tunnel syndrome, right upper limb (principal); F33.1 Major depressive disorder, recurrent, moderate; E66.01 Morbid (severe) obesity due to excess calories; E78.1 Pure hyperglyceridemia

== ENCOUNTER → 2024-05-15 09:00 | Outpatient (BNVA) | payer OTHER, SELFPAY | PROVIDERS: PCP Internal Medicine; Visit Provider Internal Medicine | DX: F33.1 Major depressive disorder, recurrent, moderate (principal); G56.01 Carpal tunnel syndrome, right upper limb; E66.01 Morbid (severe) obesity due to excess calories; E78.1 Pure hyperglyceridemia | CPT/HCPCS: 96127 ==

== ENCOUNTER 2024-05-28 09:55 | Outpatient (REF) | payer OTHER, SELFPAY ==
[2024-05-28 13:51] LABS: Influenza A PCR NEGATIVE (Negative); Influenza B PCR NEGATIVE (Negative); Resp Syncy Virus RNA Qual PCR NEGATIVE (Negative); SARS COV2 PCR INHOUSE NEGATIVE (Negative)
== END 2024-05-28 09:56 | disposition home or self-care (01) ==
LOC: HO.LAB 09:55
PROVIDERS: Nurse Practitioner Family; PCP Internal Medicine
DX: J06.9 Acute upper respiratory infection, unspecified (principal); R11.2 Nausea with vomiting, unspecified
CPT/HCPCS: 0241U; 99212

== ENCOUNTER 2024-06-01 12:45 | Outpatient (AMB) | payer OTHER, SELFPAY ==
[2024-06-01 12:55] VITALS: BMI 47.2
--- NOTE | 2024-06-01 12:55 | A.OFFVIS_ITS ---
Vital Signs 06/01/24 12:55 Height 5 ft 1 in Weight 250 lb BMI 47.2 Intake Visit Reasons: New Pt - Right CTS - EMG Done Intake Note: Alice is a 43 year old right hand dominant female who presents today as a new patient for evaluation of her right hand numbness, tingling and pain. States it strated about 5-7 months ago and has worsen in the last 3 months. States CTS co mes and goes. She has tried injections and O.T in 2018 and 2019 with no help. She has also tried braces however they provide temporary relief.. EMG done. IMPRESSION: 1. This is an abnormal study. 2. There is electrodiagnostic evidence for right moderate-severe median neuropathy at the wrist, consistent with carpal tunnel syndrome. 3. There is no electrodiagnostic evidence for ulnar neuropathy, brachial plexopathy, or cervical radiculopathy. 4. No signs of Carpal Tunnel Syndrome on left side. Allergies latex Adverse Reaction (Mild, Verified 06/01/24 13:06) hives HPI HPI New Pt - Right CTS - EMG Done: Details: Alice is a 43 year old right hand dominant female who presents today as a new patient for evaluation of her right hand numbness, tingling and pain. States it strated about 5-7 months ago and has worsen in the last 3 months. States CTS comes and goes. She has tried injections and O.T in 2018 and 2019 with no help. She has also tried braces however they provide temporary relief.. EMG done. IMPRESSION: 1. This is an abnormal study. 2. There is electrodiagnostic evidence for right moderate-severe median neuropathy at the wrist, consistent with carpal tunnel syndrome. 3. There is no electrodiagnostic evidence for ulnar neuropathy, brachial plexo rodrick, or cervical radiculopathy. 4. No signs of Carpal Tunnel Syndrome on left side. [facility] Medical History (Updated 05/28/24 @ 10:33 by Felecia Arce NP) Nausea and vomiting in adult Acute respiratory disease Major depressive disorder, recurrent, severe with psychotic features Decreased hearing Tinnitus Reduced visual acuity Pyelonephritis (03/22/15) (08/04/19) Obesity (12/12/18) Migraine Menorrhagia Irritable bowel syndrome Insomnia Hiatal hernia Hemorrhoids Gastroesophageal reflux disease Fracture of hand (04/22/09) Female stress incontinence Blood in urine Severe carpal tunnel syndrome of right wrist Medical clearance for psychiatric admission Hypertriglyceridemia Positive Tinel's sign Positive Phalen maneuver Cervicalgia HTN (hypertension) Decreased hearing of both ears Environmental and seasonal allergies Tinnitus of both ears Knee pain Excessive daytime sleepiness Loud snoring Vitamin D deficiency Impaired fasting glucose Mixed dyslipidemia Morbid obesity Hiatal hernia with gastroesophageal reflux Family history of premature CAD Annual visit for general adult medical examination with abnormal findings Anxiety and depression Surgical History H/O endoscopy H/O wisdom tooth extraction Family History Father Substance use disorder Mental health disorder Alcoholism Myocardial infarction acute, Onset Age: 55 Depression Maternal Uncle Testicular cancer Social History (Updated 06/01/24 @ 13:07 by JESSICA He) Household Members: Family Household Members Other:: and 2 children Housing: House Do you presently have visiting nurse or other home services: No Alcohol intake: current Alcohol intake frequency: holidays/special occasions only Patient Tobacco Use Status: Never used Tobacco e-Cigarette/Vaping Use: Never Used Substance Use Type: Marijuana service: No Current occupational status: unemployed and other 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 Good APB muscle firing and good finger cross. Vascular: Capillary refill brisk. ROM: Patient can make a fist and extend all their digits. Skin: No lacerations or abrasions noted. General: No ecchymosis. No erythema or evidence of infection. Assessment & Plan Assessment & Plan (1) Severe carpal tunnel syndrome of right wrist: Code(s): G56.01 - Carpal tunnel syndrome, right upper limb Category: Medical Plan 1. Carpal tunnel syndrome, right Symptoms intermittent, daily, worse night I educated the patient about the condition. I discussed both operative and nonoperative treatment options. The patient would like to proceed with surgery. The risks and benefits of operative treatment were discussed with the patient and the patient wishes to proceed with surgery. These risks include, but are not limited to, risk of damage to blood vessels, nerves, tendons, infection, recurrence, incomplete relief of preoperative symptoms, persistent pain, possible need for further surgery, and the risks associated with regional blocks and/or anesthesia. Plan is to take the patient to the operating room at some point in the next few weeks for the following procedures: 1. Right carpal tunnel release under local anesthesia All of the preoperative paperwork including the consent was discussed today. All of the patient's questions were answered in the clinic today. The patient understands that they will be in contact with our impregnator [employer] products to discuss scheduling their procedure. Patient denies diabetes, blood thinners, asthma, heart issues, lung issues, kidney issues, or current smoking. Coding Level of Care Code New Pt Level 4 (84275) Diagnoses Severe carpal tunnel syndrome of right wrist G56.01
--- OUTSIDE RECORDS SUMMARY | 2024-06-01 13:47 | XMS_ITS | Data Portability ---
Author Organization [place] - [facility], [place] - [facility] - Address [address] [place] [address] Care Team Providers Care Superintendent Sales Name Role Phone ROBIN PENALOZANN Primary Care [...] 6-8 weeks. This visit was conducted via [employer] website [employer] using both audio and video during the 2019 COVID-19 pandemic. Patient consented to non face to face service. Patient location: car Provider location: [facility] Start time: 1417 End time: 1424 Participants [...] This visit was conducted via telehealth website [employer] using both audio and video during the 2020. Patient consented to non face to face service. Patient location: home Provider location: [facility] Start time: 1424 End time: 1429 Participants [...] This visit was conducted via telehealth website [employer] using both audio and video during the 2019. Patient consented to non face to face service. Patient location: home Provider location: [facility] Start time: 1352 End time: 1401 Participants [...] HCl 50 mg tablet 2020 021 [facility], [address] [facility], [place], [address], 15:27:21 duloxetine 30 mg capsule,del ayed release 2020 021 [facility], [address], [place], [address], 15:27:17 duloxetine 60 mg capsule,del ayed release 2020 021 [facility], [address], [place], [address], 15:27:17 duloxetine 30 mg capsule,del ayed release 2021 022 [facility], [address], [place], [address], 15:13:01 duloxetine 60 mg capsule,del ayed release 2021 022 [facility], [address], [place], [address], 2 15:12:56 hydroxyzine HCl 50 mg tablet 2021 022 [facility], [address], [place], [address], 15:12:57 Patient TargetsNo targets recorded. Patient InstructionsNo instructions recorded. Reason for Referral None Reported. Problems Name Problem SNOMED Code Status Onset Date Resolution Date Notes Provider Name and Address Organization Details Recorded Time Multiple environm ental allergie s Active scotty sepulveda [facility] 6 12:23:04 Irritabl e bowel syndrome 53002278 Active celiac disease Ab testing Neg 11/03; improved w/ Gluten free diet scotty sepulveda [facility] 6 12:23:04 Gastroes ophageal reflux disease 020223819 Active scotty sepulveda [facility] 6 12:23:04 Mixed anxiety and depressi ve disorder 674922389 Active hx of post depressi on and took lexapro but felt poor response , wellbutr in was very neg side effects (bad vivid dreams of her hurting her family); zoloft was very good response but had to stop when breast feeding bad w/d (didn't wean) scotty sepulveda [facility] 6 12:23:03 Migraine 59218506 [facility] 12:[facility]03 Hiatal hernia 90221564 [facility] 6 12:23:04 Hemorrho ids 47070745 Completed 12/11/2018 tx'd w/ anusol-H C Timbo Mckeon DO [address], [place], [address] , [facility] 9 17:20:55 Female stress incontin ence 59895484 [facility] 7 18:34:40 Pyelonep hritis 13331433 Completed 201412/11/2018 tx'd w/ Levaquin Timbo Mckeon DO [address], [place], [address] , [place] [facility] 9 17:19:51 Insomnia 142106943 [facility] 6 12:23:03 Fracture of hand 21106152 Completed 200912/11/2018 Left Timbo Mckeon DO [address], [place], [address] , [place] [facility] 9 17:20:04 Tinnitus 31886288 [facility] 6 12:23:04 Decrease d hearing 535880437 Completed 12/11/2018 Timbo Mckeon DO [address], [place], [address] , [place] [facility] 9 17:19:28 Reduced visual acuity 01878302 Active scotty banda null, [place] - [facility] 6 12:23:04 Sensorin eural hearing loss of bilatera l ears 709868151 Active Asha Bradford [address], [place], [address] , [place] [facility] 6 13:11:25 Menorrha obi 136666820 Active Margy Becker MD [address], [place], [address] , [place] [facility] 7 22:56:04 Blood in urine 78769861 Completed 12/11/2018 Timbo Mckeon DO [address], [employer] [place], [address] , [place] [facility] 9 17:19:34 Obesity 937684561 Active 2018 Timbo Mckeon DO [address], [employer] [place], [address] , [place] [facility] 9 01:18:28 Pregnanc y 87166440 Completed 201903/16/2020 Aliyahjanet White[place] null, [place] [facility] 0 12:25:25 Gestatio nal diabetes mellitus class A2 73001600 Active 2019 Aliyahjanet [place] null, [place] - [facility] 0 12:25:22 Gestatio nal diabetes mellitus class A2 08632040 Completed 2019 Aliyahjanet [place] null, [place] - [facility] 0 12:25:22 Depressi ve disorder 50032648 Active 2020 Yaya Casanova DO [address], [place], [address] , [place] [facility] 1 15:54:10 Notes:hx plantar [...] Non-Stress Test completed Malka VANEGAS, [address], [place], [address], [facility] 02/25/2020 13:33:54 02/18/20 20 Non-Stress Test completed Cali Ace MD [address], [place], [address], [facility] 02/18/2020 15:49:47 02/11/20 20 Non-Stress Test completed Cali Ace MD [address], [place], [address], [facility] 02/11/2020 15:03:18 01/12/20 20 Non-Stress Test completed Cali Ace MD [address], [place], [address], [place] [facility] 01/12/2020 18:21:04 12/19/19 19 Date of Last Pap Smear completed Timbo Mckeon DO [address], [place], [address], [facility] 12/24/2018 14:45:47 06/30/19 17 Ortho Corticosteroid Injection completed Vy Feliciano [facility] 06/29/2016 12:26:26 06/29/19 17 Cystoscopy (female) completed Chuck VANEGAS, [address], [place], [address], [facility] 06/28/2016 12:41:47 06/14/19 17 Bladder Scan completed Chuck VANEGAS, [address], [place], [address], [facility] 06/14/2016 13:22:58 04/05/20 16 Tympanometry completed Asha Bradford [address], [place], [address], [facility] 04/05/2016 13:11:04 04/05/20 16 Audiogram.old completed Asha Bradford [address], [place], [address], [facility] 04/05/2016 13:11:04 11/21/19 15 Other completed Georgi Moctezuma MD [address], [place], [address], [facility] 01/13/2016 00:18:30 10/21/19 15 Other completed Georgi Moctezuma MD [address], [place], [address], [facility] 01/13/2016 00:18:30 04/22/19 00 [place] Teeth Removed completed Georgi Moctezuma MD [address], [place], [address], [facility] 01/12/2016 22:50:32 Oral surgery procedure completed Dena Argueta [facility] 04/06/2016 12:36:17 Imaging Results None recorded. Procedure Notes None recorded. Medical Equipment None Reported. Allergies Allergen ID Allergen Name Allergen Category Reaction Reaction Severity Criticality Documentation Date Start Date Code Code System Note Provider Name and Address Organization Details Recorded Time 632674 latex environme nt,medica tion hives moderate Not available 01/12/2016 76224 91 RxNorm Georgi Moctezuma MD [address], [place], [address], [facility] 6 22:23:54 875478 acetamino phen / hydrocodo ne medicatio n other moderate Not available 04/05/2016 59632 2 RxNorm facia l numbn ess scotty banda null, [facility] 6 12:23:03 090835 Wellbutri n medicatio n Not available Not available Not available 06/18/2016 73455 RxNorm vivid dream s/fri ghten ing ; used w/ post partu m alivia Moctezuma MD, Georgi Costa [address], [place], [address], [facility] 7 11:10:40 042598 adhesive tape environme nt,medica tion Not available Not available Not available 03/16/2020 93774 UNK Aliyah Julian null, [facility] 0 12:21:24 Medications Name [...] e 137 mcg (0.1 %) nasal spray [place] 1 spray every day by intranas al [...] e Mini Pen Needle 31 gauge x 07/05 completed Not Available Not Available Not Available [...] Not Available Not Available Not Available FreeStyle [place] Lite kit 03/16 completed Not Available Not [...] Smoking Status Never Smoker 12/11/18 Kathy Guallpa [facility] [place], [place] - [facility] 12/11/2018 16:59:59 Do You Have An Advance Directive? 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 She Does Not Want To Be Maintained On Chronic Life Support If There Is Little Hope Of A Meaningful Recovery. - 12/18/2018 Information not available 12/18/2018 What Is Your Level Of Alcohol Consumption? None [email or web address] Information not available 10/27/2019 Are You Blind [...] COVID-19 While That Case Was Ill? No [email or web address] Information not available 07/30/2019 In The 14 Days Before Symptom Onset, Have You Had Close Contact With A Person Who Is Under Investigation For COVID-19 While That Person Was Ill? No [email or web address] Information not available 07/30/2019 Have You Been To An Area Known To Be High Risk For COVID-19? No [email or web address] Information not available 07/30/2019 What Type Of Diet Are You Following? REGULAR Low Sodium Information not available 01/12/2016 Which Illicit Or Recreational Drugs Have You Used? None Information not available 12/11/2018 Do You Or Have You Ever Used E-cigarettes Or Vape? 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 No 12/11/18 Mh Information not available 04/06/2016 Have You Traveled Outside Of The [place] In The Last 21 Days (3 Weeks)? No Information not available 04/06/2016 Do You Have Any Lutheran Beliefs That May Impact Your Health Care Decisions? No Does Not Follow Any [facility] Information not available 12/11/2018 Did You Hurt [...] Details LastModified Time Father Myocardial infarction 55 [email or web address] Not available 04/25 18:44:02 Father Hypertensive disorder Not available 2016 18:44:02 Father Hyperlipidem ia [email or web address] Not available 2016 18:44:02 Paternal Aunt Malignant tumor of cervix Not available 2016 18:44:02 Paternal Aunt Dementia [email or web address] Not a vailable 04/25/2016 18:44:02 Mother Pyelonephrit [...] quadrivalent , PF 1 completed Maile sepulveda [facility] 03/15/2021 12:10:26 COVID-19, mRNA, LNP-S, PF, 30 mcg/0.3 mL dose 1 completed Savana sepulveda [facility] 08/30/2020 10:45:30 COVID-19, mRNA, LNP-S, PF, 30 mcg/0.3 mL dose 1 completed Savana sepulveda [facility] 08/30/2020 10:45:45 COVID-19, mRNA, LNP-S, PF, 30 mcg/0.3 mL dose 1 completed Maile sepulveda [facility] 03/15/2021 11:48:03 Influenza, split virus, trivalent, PF 8 cancelled patient objection Not Available [facility] 05/09/2019 02:33:30 Influenza, MDCK, quadrivalent , PF 8 completed Not Available [facility] 05/09/2019 03:23:32 Influenza, MDCK, quadrivalent , PF 9 completed Not Available [facility] 05/09/2019 03:01:50 Influenza, split virus, quadrivalent , PF 0 completed Savana sepulveda [facility] 01/05/2020 16:31:36 Tdap 3 completed Not Available [facility] 03/07/2020 09:20:47 Past Encounters Encounter ID Performer Location Encounter Start Date Encounter Closed Date Diagnosis/Indication Diagnosis SNOMED-CT Code Diagnosis ICD10 Code Diagnosis Note [id number] Anisha Mcclain [facility] [address] [place] [address] 01/12/2016 10:23:10 01/13/2016 12:09:34 Adult health examination 151587927 Z00.00 Hematology screening test 617662890 Z13.0 Hyperlipid emia screening 972456069 Z13.220 Endocrine/ metabolic screening 254614998 Z13.228 Mixed anxi ety and depressive disorder 209566892 F41.8 Tinnitus 67891566 H93.13 Decreased hearing 084950 001 H91.93 Reduced visual acuity 13 065785 H54.7 [facility] care 68484 5005 Z30.40 [id number] Lv lucas MD, Chandrakant Shipley [facility] POS [address] [facility], [address] [place] [address] 04/05/2016 11:57:03 04/05/2016 13:17:18 Tinnitus 55126127 H93.13 At this time the patient has bilateral tinnitus, most likely due to her bilateral hearing loss. Please see plan as described above. FG Allergic r hinitis caused by pollen 97263274 J30.1 At this time the patient has [...] Sensorineu ral hearing loss of bilateral ears 299570164 H90.3 At this time the patient comes [...] if she wishes to move forward with ahmet. She had no further questions for now. She will follow up as needed. FG Dizziness 871395904 R42 At this time the patient also complains of an off balance feeling with walking up and down stairs, but does not have any other problems. We will see if this improves on nasal steroid spray. She had no further questions and will follow up as needed for now. FG [id number] Asha Bradford [facility] [address] [facility],[address] [place] [address] 04/05/2016 13:09:55 04/05/2016 13:12:09 Sensorineural hearing loss of bilateral ears 463146119 H90.3 [id number] Eugenio VANEGAS, Margy Valdivia [facility] [place] [address] [place] [address],[address] [facility] [address] 04/06/2016 12:09:16 04/06/2016 13:47:10 Gynecologic examination 96211487 Z01.419 Screening for malignant neoplasm of cervix 786915588 Z12.4 Menorrhagia 914407178 N9 2.0 History of urinary tract infection 3666965785 107 Z87.440 Surveillan ce of contraception 731966523 Z30.40 [id number] Eugenio VANEGAS, Margy Valdivia [facility] [place] [address] [place] [address],[address] [place] [address] 04/25/2016 17:48:13 04/25/2016 19:53:53 Menorrhagia 546802637 N92.0 Blood in urine 79671545 R31.9 [id number] Rhianna VANEGAS, Georgi Costa [facility] POS [address],[facility] [place] [address] 05/08/2016 10:01:31 05/08/2016 12:08:23 Migraine 37487898 G43.909 Mixed anxi ety and depressive disorder 680343575 F41.8 Carpal davonte simon syndrome 47435901 G56.00 Insomnia 672231363 G47.0 0 Hand pain 62357416 M79.6 42 Vitamin D deficiency 347 37714 E55.9 [id number] Chuck VANEGAS, [facility] UROLOGY [facility] POS [address] [place] [address] 06/14/2016 12:22:40 06/14/2016 14:22:12 Microscopic hematuria 897964581 R31.21 she had 2-5 rbc on last ua done 04/26.17-has had full workup done in the past by another urologist and was negative but it was a while agozahida send urine for c/s and cytology-f ollow up for cystoscopy in office Renal colic 7552101 N23 she is having bilateral flank pain-previ ous urologist had checked a renal us but 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-jc l do ct scan for stone search prior to cystoscopy [id number] Rhianna VANEGAS, Georgi Costa [facility] [address] [address] 06/18/2016 10:33:06 06/18/2016 12:04:21 Mixed anxiety and depressive disorder 857104068 F41.8 [id number] Chuck VANEGAS, [facility] UROLOGY [facility] POS [address] [place] [address] 06/28/2016 12:09:59 06/28/2016 12:45:15 Blood in urine 77711549 R31.9 her cystoscopy shows mild chronic bullous cystitis and a diverticul um, mild grade 1 trabeculat ions-will start on suppressiv e dose macrodanti n for one monthfollo w up in 3mos [id number] Donnell VANEGAS, Luis Soliz [facility] - ORTHOPEDI CSURGERY [facility] POS [address] [place] [address] 06/29/2016 11:24:40 07/13/2016 10:46:48 Hand pain 59627665 M79.643 Carpal davonte simon syndrome 38842443 G56.01 G56.02 [id number] Donnell VANEGAS, Luis Soliz [facility] [place] POS [address] [facility] [place] [address] 07/13/2016 11:07:42 07/13/2016 13:24:50 Pain in wrist 73336329 M25.531 Hand pain 11237909 M79.6 43 Carpal davonte simon syndrome 54213395 G56.01 G56.02 [id number] Rhianna VANEGAS, Georgi Costa [facility] [address],[place] [address] 07/16/2016 10:58:41 07/16/2016 11:42:57 Mixed anxiety and depressive disorder 122310747 F41.8 [id number] Donnell VANEGAS, Luis Reynaoli [facility]ERY [place] [address] [place] [address] 08/13/2016 11:24:07 08/13/2016 12:23:07 Hand pain 56696393 M79.641 Pain in wrist 65976278 M 25.531 Carpal davonte simon syndrome 81907700 G56.01 G56.02 [id number] Donnell [facility]ANEGAS, [facility] [place] [address] [place] [address] 09/20/2016 11:45:56 09/20/2016 14:44:21 Pain in wrist 66919792 M25.531 M25.532 Hand pain 67533918 M79.6 41 Carpal davonte simon syndrome 49087604 G56.01 G56.02 [id number] Chuck VANEGAS, [facility] - UROLOGY [facility] [place] POS [address] [facility] [place] [address] 10/04/2016 11:54:33 10/04/2016 12:31:12 Blood in urine 87018793 R31.9 she had history of microhemat uriawas given 3mos of suppressiv e dose abxhas not seen any blood in urinewill check ua/culture Bladder mu scle dysfunction - overactive 495942100 N32.81 she goes to bathroom every 2 hours during day and 2 times at night, occ urge incontinen cetrial of myrbetriq Female str ess incontinence 76237511 N39.3 -she does not require pads for the problemonl y occurs occasional ly with sneezingdi scussed treatment options- e will observe for now [id number] Donnell VANEGAS, Luis Soliz [facility]THOP[facility] CSUR[facility]ERY [place] [address] [place] [address] 10/08/2016 09:47:26 10/08/2016 10:46:23 Pain in wrist 14488066 M25.531 M25.532 Hand pain 95870212 M79.6 41 Carpal davonte simon syndrome 74666104 G56.01 G56.02 [id number] Donnell VANEGAS, Luis Soliz [facility] CS[facility]ERY [facility] [address] [facility] [facility] [place] [address] 11/09/2016 10:50:45 11/09/2016 12:33:48 Pain in wrist 52732366 M25.531 M25.532 Neck pain 30788663 M54.2 Hand pain 59642804 M79.6 41 Carpal davonte simon syndrome 49072794 G56.01 G56.02 [id number] Rhianna VANEGAS, Georgi [facility] [address],[place] [address] 11/21/2016 10:22:19 12/11/2016 16:16:59 Low back pain 668099723 M54.5 Snoring 26213941 R06.83 [id number] Rhianna VANEGAS, Georgi [facility] [address],[place] [address] 01/10/2017 16:20:44 01/10/2017 17:19:55 Pain in left knee 6140442090 31446 M25.562 Depressive disorder 3548 9007 F32.89 Fatigue 33698275 R53.83 [id number] Chuck VANEGAS, [facility] - UROLOGY [facility] [address] [place] [address] 01/31/2017 11:27:16 01/31/2017 12:47:19 Bladder muscle dysfunction - overactive 900891415 N32.81 she goes to bathroom every 2 hours during day and 2 times at night, occ urge incontinen cemyrbetri q didn't help and wasn't covered Female str ess incontinence 15708641 N39.3 she is more bothered by it latelywoul d like to try physical therapyref erral to at [facility] given [id number] Tete Brian DO [facility] Maddie [facility] AM#1 [address] [place] [address] 03/08/2017 11:55:53 03/13/2017 00:11:33 Fatigue 24448915 R53.83 --concerns for fatigue and insomnia. Have discussed sleep hygeine techniques with patient and reviewed the sleep study with her. Discussed weight loss and controllin g nasal congestion .--Pt will attempt these and follow up in the next 3 months. Allergic rhinitis 199191 04 J30.9 --nasal congestion Obesity 364856916 E66.9 --discusse d keeping track of her calories and aiming to eat about 500 calories less then what she normally eats.--Pt should f/u in 3 months on weight loss. [id number] Tete Brian DO Maddie [facility]1 [address] [place] [address] 06/12/2017 10:00:03 06/12/2017 10:41:36 Active or passive immunization 139022403 Z23 Fatigue 56683806 R53.83 --cont use of breathe right strips and use nasal steroid. Allergic rhinitis 144794 04 J30.9 --nasal congestion continued. Increase cetirizine to 10 mg daily, but go back to 5 mg if she feels overly fatigued. Cont fluticason e and also start azelastine daily. Gastroesop hageal reflux disease 406491292 K21.9 [id number] Tete Brian DO [facility] AM#1 [address] [place] [address] 08/12/2017 10:54:36 08/12/2017 11:48:10 Obesity 129011084 E66.9 --discusse d weight loss and diet again Insomnia 081381993 G47.0 0 --pt instructed to take amitriptyl ine daily.--Co unselled on possible side effects. RTC if insomnia worsens Neck pain 10696222 M54.2 --negative adsons test, negative spurling sign. Muscle spasm in b/l neck.--Giv en exercises for neck. OTC tylenol and ibuprofen. RTC as needed. Migraine 34144082 G43.90 9 [id number] Tete Brian DO [facility] AM#1 [address] [place] [address] 02/11/2018 10:03:22 02/11/2018 10:50:04 Administration of influenza vaccine 97529323 Z23 Migraine 08539919 G43.90 9 --fioricet , amitriptyl ine and topiramate Insomnia 489278552 G47.0 0 --pt instructed to take amitriptyl ine daily.--Co unselled on possible side effects. RTC if insomnia worsens Environmental allergy 42 2158590 T78.49XA [id number] Shade VANEGAS, Nitin [facility] AM#1 [address] [place] [address] 04/02/2018 14:24:14 04/02/2018 15:10:58 Adult health examination 105760646 Z00.00 Migraine 74164113 G43.90 9 [id number] Timbo Mckeon DO [facility]#1 [address] [facility] [place] [address] 12/11/2018 16:42:55 12/11/2018 17:56:44 Bladder muscle dysfunction - overactive 780809238 N32.81 she has urinary incontinen ce and requesting a refill of the detrol, this has helped her in the past Body mass index 30+ - obesity 920706167 Z68.39 The patient's current weight is 209# with a height of 5' 1.25 and a correspond ing BMI (Body Mass Index) of 39.2. The medical definition of Obesity is a BMI greater than 30. Your [place] Body Weight is approximat malinda about 116#. [...] migraine prophylaxi s and weight loss. Migraine 88170387 G43.90 9 see the above plan [id number] Timbo Mckeon DO [facility]#1 [address] [facility],[address] [place] [address] 12/18/2018 09:57:19 12/18/2018 11:37:10 Adult health examination 232325139 Z00.00 Female Complete Physical Exam: I discussed [...] exercise, diet. Achieve/ma intain ideal body weight. [place] body weight is about 116 pounds,Adv anced directives : I gave the patient the form for LIVING WILL and health power of ip attorney from the [place] [employer], the patient does want to be resuscitat ed but the patient does not want to be maintained on chronic life support if there is little hope of meaningful recovery. Active or passive immunization 863725302 Z23 Flu vaccine today, She is up to date with the Tdap Body mass index 30+ - obesity 153710121 Z68.38 The patient's current weight is 206.75# with a height of 5' 1.25 and a correspond ing BMI (Body Mass Index) of 38.7. The medical definition of Obesity is a BMI greater than 30. Your [place] Body Weight is approximat malinda about 116#. A reduced calorie, reduced carbohydra te weight reduction diet as well as increased activity.. She has lost about 3# since the last visit Hyperhidro sis of axilla 792181671 L74.510 Drysol Jessie.ly to axilla once daily at first and then about three times per week, do not apply to fresh shaven skin. Elevated blood-pressure reading without diagnosis of hypertension 621265885 R03.0 I encouraged the patient to check the blood pressure and log the results. Please follow a reduced sodium diet and maintain/a chieve ideal body weight. [id number] Malka VANEGAS, Cali Carter [facility] - PLUG PASTER DOW POS [address] [place] [address] 07/30/2019 10:48:16 07/30/2019 12:44:41 test positive 110076105 Z32.01 Mild hyper emesis gravidarum 88852103 O21.0 Reviewed and hyperemesi s with patient. Reviewed diet at length. Questions answered. Recommend consider hold PNV. Start vitamin B6, unisom. Ob dating u/s in 1 week. f/u 1wk. Amenorrhea 47041002 N91. 2 Reviewed findings, positive test. [id number] Malka VANEGAS, Cali Carter [facility] - PLUG PASTER [facility] POS [address] [place] [address] 08/04/2019 11:31:16 08/04/2019 13:34:46 Disorder of menstruation 507444999 N92.6 Ob u/s reviewed, show viable iup consistent with LMP dating. Reviewed with patient. Routine an tenatal care 047065174 Z34.81 Z3A.08 Venereal d isease screening 970372296 Z11.3 Advanced m aternal age 158402928 O09.899 [id number] Malka VANEGAS, [facility] - PLUG PASTER DOW POS [address] [place] [address] 7 08/18/2019 11:25:44 08/18/2019 13:21:34 Advanced maternal age 342203541 O09.899 Routine an tenatal care 433222502 Z34.81 Z3A.08 Mild hyper emesis gravidarum 91334295 O21.0 mostly resolved [id number] Malka VANEGAS, [facility] POS [address] [place] [address] 7 09/22/2019 13:57:14 09/22/2019 14:40:34 Multigravida of advanced maternal age 938523193 O09.522 Z3A.15 [id number] Malka VANEGAS, [facility] POS [address] [place] [address] 7 10/20/2019 13:50:29 10/20/2019 15:17:10 Multigravida of advanced maternal age 236221201 O09.523 Z3A.19 [id number] Primitivo VANEGAS, Dickson [facility] - [facility] IN[facility] POS [address] [place] [address] 5 10/27/2019 10:57:43 10/27/2019 14:41:15 Advanced maternal age 103596744 O09.899 expo sure to alcohol 912159597 O35.4XX9 expo sure to drug 106337063 O35.5XX9 Tolterodin e exposure [id number] Malka VANEGAS, [facility] POS [address] [place] [address] 7 11/24/2019 14:02:44 11/24/2019 15:47:27 Advanced maternal age 489910225 O09.899 Z3A.24 [id number] Malka VANEGAS, [facility] - PLUG PASTER DOW POS [address] [place] [address] 7 12/08/2019 13:27:12 12/08/2019 15:22:20 Gestational diabetes mellitus 75000660 O24.410 [id number] [facility] - [facility] INE [facility] POS [address] [place] [address] 12/17/2019 17:23:54 12/17/2019 17:24:51 [id number] Dickson Langford MD [facility] - [facility] POS [address] [place] [address] 12/22/2019 08:47:44 12/22/2019 11:38:14 Glucose tolerance test outside reference range 757063258 R73.09 Gestationa l diabetes mellitus 12559877 O24.410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 Fundus Units Glucose Ketones Leukocytes Nitrite Labor Signs Protein Cervic Dilation Cervic Effacement Cervic Station 20 none neg Type Weight in lbs Pre/Post Dialysis Refused With clothes 208.49180222219 BP Diastolic BP Location Tested BP Systolic BP Type 78 R arm 120 sitting Fetus Heart Rate Present A 150 Fetus Movement A Yes Comments ob/fu - MFM scheduled on 10/26. c/o continues to have nausea, frequent crackling in her right ear, nasal congestion, mild nose bleeds. No other c/o. Exam neg, TM neg. recommend saline mist. [facility] u/s sched 10/26. PTL signs and [...] in lbs Pre/Post Dialysis Refused With clothes 206.743204878205 BP Diastolic BP Location Tested BP Systolic BP Type 72 L arm 124 sitting Fetus Heart Rate Present A 150 Fetus Movement A Yes Comments Glucose and cbc labs today. Ingrown hair has been having some discomfort. Exam neg. 1hr gluc today. Reviewed [facility] u/s. PTL signs and symptoms reviewed. f/u 2wk. Flowsheet Date 12/08/2019 Jackson Score Blood Edema Fundus Height Fundus Units Glucose Ketones Leukocytes Nitrite Labor Signs Protein Cervic Dilation Cervic Effacement Cervic Station none neg Type Weight in lbs Pre/Post Dialysis Refused With clothes 208.773125312712 BP Diastolic BP Location Tested BP Systolic BP Type 70 L arm 118 sitting Fetus Heart Rate Present A 150 Fetus Movement A Yes Comments ob fu. No complains. Reviewe d 3hr gtt pos. refer to [facility], dietitian. Send glucometer, chem strips, lancets. [...] in lbs Pre/Post Dialysis Refused With clothes 207.128021742931 BP Diastolic BP Location Tested BP Systolic BP Type 72 L arm 124 sitting Fetus Heart Rate Present A 145 Fetus Movement A Yes Comments Pt c/o pain on hips when sle eping. Occ tightening muscle on ankle and foot. Denies other c/o. MFM u/s reviewed. 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 PTL signs and symptoms reviewed. f/u 2wk. Flowsheet Date 01/05/2020 Jackson Score Blood Edema Fundus Height Fundus Units Glucose Ketones Leukocytes Nitrite Labor Signs Protein Cervic Dilation Cervic Effacement Cervic Station 32 none neg Type Weight in lbs Pre/Post Dialysis Refused With clothes 205.851358862816 BP Diastolic BP Location Tested BP Systolic [...] in lbs Pre/Post Dialysis Refused With clothes 205.020123316517 BP Diastolic BP Location Tested BP Systolic BP Type 72 L arm 112 sitting Fetus Heart Rate Present A 135 Fetus Movement A Yes Comments Ob f/u, c/o still having leg cramps. States had episode of dizziness resolved after Juice. BS has been better. NST reactive. [facility] u/s schedule for next . PTL signs [...] in lbs Pre/Post Dialysis Refused With clothes 205.283580782804 BP Diastolic BP Location Tested BP Systolic [...] in lbs Pre/Post Dialysis Refused With clothes 204.275529090539 BP Diastolic BP Location Tested BP Systolic [...] in lbs Pre/Post Dialysis Refused With clothes 205.815659267230 BP Diastolic BP Location Tested BP Systolic [...] in lbs Pre/Post Dialysis Refused With clothes 205.142593785063 BP Diastolic BP Location Tested BP Systolic [...] in lbs Pre/Post Dialysis Refused With clothes 201.884594784449 BP Diastolic BP Location Tested BP Systolic BP Type 80 L arm 120 sitting Fetus Heart Rate Present A 145 Fetus Movement A Yes Comments ob/fu - Pt was at [facility] on Saturday due to having contractions- [...] in lbs Pre/Post Dialysis Refused With clothes 192.976216280200 BP Diastolic BP Location Tested BP Systolic [...] 09/22/2019 Toxoplasmosis precautions (cats/raw meat) [email or web address] 09/22/2019 [facility] [email or web address] 09/22/2019 [facility] [email or web address] 09/22/2019 Blood [...]
--- OUTSIDE RECORDS SUMMARY | 2024-06-01 13:47 | XMS_ITS | Continuity of Care Document ---
Author Name [facility] Organization [facility] Care Team Providers Care Sheep Sorter Name Role Phone [facility] Unavailable Unavailable Medications Combined list [...] CITRON PHARMA L, 500 ea. BOTTLE Active [id number] 4 2023 10 Pharmac y Data Transac tion Service Facilit y Benzonatate ([employer]) 100 CAPSULE in 1 BOTTLE Active [id number] 06/26/19 2 4 2023 60 Pharmac y Data Transac tion Service Facilit y DIAZEPAM (DIAZEPAM), 5MG, TABLET, ORAL, IVAX PHARMACEUT, 100 ea. BOTTLE Active [id number] 4 2023 10 Pharmac y Data Transac tion Service Facilit y DULOXETINE HCL (DULOXETINE HCL), 60 MG, CAPSULE DR, ORAL, BRECKENRIDG E, 90 ea. BOTTLE Active [id number] 4 2023 90 Pharmac y Data Transac tion Service Facilit y DULOXETINE HCL (DULOXETINE HCL), 60 MG, CAPSULE DR, ORAL, BRECKENRIDG E, 90 ea. BOTTLE Active [id number] 4 2023 90 Pharmac y Data Transac tion Service Facilit y LIDOCAINE (lidocaine) , 5 %, ADH. PATCH, TOPICAL, AMNEAL PHARMACE, 30 ea. BOX Active [id number] 4 2023 30 Pharmac y Data Transac tion Service Facilit y LISINOPRIL (lisinopril ), 10 MG, TABLET, ORAL, LUPIN PHARMACEU, 1000 ea. BOTTLE Active [id number] 4 2023 30 Pharmac y Data Transac tion Service Facilit y LISINOPRIL (lisinopril ), 10 MG, TABLET, ORAL, LUPIN PHARMACEU, 1000 ea. BOTTLE Active [id number] 4 2023 30 Pharmac y Data Transac tion Service Facilit y LISINOPRIL (LISINOPRIL ), 5MG, TABLET, ORAL, LUPIN PHARMACEU, 1000 ea. BOTTLE Active [id number] 3 2022 30 Pharmac y Data Transac tion Service Facilit y LISINOPRIL (LISINOPRIL ), 5MG, TABLET, ORAL, LUPIN PHARMACEU, 1000 ea. BOTTLE Active [id number] 4 2023 30 Pharmac y Data Transac tion Service Facilit y LISINOPRIL- HCTZ (LISINOPRIL /HYDROCHLOR OTHIAZIDE), 10-12.5MG, TABLET, ORAL, LUPIN PHARMACEU, 100 ea. BOTTLE Active [id number] 4 2023 30 Pharmac y Data Transac tion Service Facilit y LISINOPRIL- HCTZ (LISINOPRIL /HYDROCHLOR OTHIAZIDE), 10-12.5MG, TABLET, ORAL, LUPIN PHARMACEU, 100 ea. BOTTLE Active [id number] 4 2023 30 Pharmac y Data Transac tion Service Facilit y SULFAMETHOX AZOLE-TRIME THOPRIM (sulfametho xazole/trim ethoprim), 800-160 MG, TABLET, ORAL, RISING PHARM, 100 ea. BOTTLE Active [id number] 4 2023 14 Pharmac y Data Transac tion Service Facilit y Allergies, Adverse Reactions, Alerts Combined list of allergies from Department of Defense and Veterans Affairs facilities. It does not include entries that were removed or entered in error. Substance Category Reaction Severity Reaction type Status Date Reported Comments Source acetaminophe n-hydrocodon e Drug allergy Active One or More [facility] Facilities CLOTHING PRESSER ADHESIVES Propensity to adverse reaction (finding) active 0 [facility] Adhesives Allergy to substance Active One or More A Facilities CLOTHING PRESSER HYDROCODONE Drug allergy (disorder) active 0 [facility] Latex Drug allergy Active One or More A Facilities CLOTHING PRESSER LATEX GLOVE Propensity to adverse reactions to drug (finding) active 0 Esteban VERASLL [facility] VICODIN Propensity to adverse reactions to drug (finding) active 0 ADE RAMONA JOSS [facility] Immunizations Combined list of available immunizations from the Department of Defense and Veterans Affairs facilities. Immunization Series Date Given Administered By Site Reaction Lot Number CVX Code Drug Special Certificate Dictator Status Comments Source COVID-19, mRNA, LNP-S, PF, 30 mcg/0.3 mL dose 2020 [email or web address] [place] (PFR) Not Given COVID-19, mRNA, LNP-S, PF, 30 mcg/0.3 mL dose DoD COVID-19, mRNA, LNP-S, PF, 30 mcg/0.3 mL dose 2020 [email or web address] [place] (PFR) Not Given COVID-19, mRNA, LNP-S, PF, 30 mcg/0.3 mL dose DoD COVID-19, mRNA, LNP-S, PF, 30 mcg/0.3 mL dose 2020 [email or web address] [place] (PFR) Not Given COVID-19, mRNA, LNP-S, PF, 30 mcg/0.3 mL dose DoD Vital Signs Combined list of inpatient and outpatient Vital Signs from Department of Defense and Veterans Affairs, ranging from 12 months to all on record, depending upon the facility. Vital Sign Value Date Comments Source Systolic Blood Pressure 132 mm[Hg] 02/04/20 20:15:44 One or More [facility] Facilities CLOTHING PRESSER Diastolic Blood Pressure 78 mm[Hg] 02/04/2020 20:15:44 One or More [facility] Facilities CLOTHING PRESSER Procedures Combined list of: 1) Procedures from Department of Veterans Affairs facilities going back up to thelast 18 months, not all VA non-surgical procedures are included; 2) All procedures [...] Plan No data available for this section 06/01/2024 Ambulatory Pharmacy Functional Status Combined list of recent functional and cognitive assessments recorded at [facility] ([place] Functional [place] Measurement (FIM) Scale: 1 = Total Assistance (Subject = 0% +), 2 = Maximal Assistance (Subject = 25% +), 3 = Moderate Assistance (Subject = 50% +), 4 = Minimal Assistance (Subject = 75% +), 5 = Supervision, 6 = Modified [place] (Device), 7 = Complete [place] (Timely, Safely). Assessment Date/Time Source Assessment Type Assessment Skill Assessment Score Assessment Details No data available for this section
== END 2024-06-01 13:18 | disposition home or self-care (01) ==
PROVIDERS: PCP Internal Medicine
DX: G56.01 Carpal tunnel syndrome, right upper limb (principal)
CPT/HCPCS: 99204

== ENCOUNTER → 2024-06-01 12:45 | Outpatient (BNVA) | payer OTHER, SELFPAY | PROVIDERS: PCP Internal Medicine | DX: G56.01 Carpal tunnel syndrome, right upper limb (principal) | CPT/HCPCS: 99202 ==

== ENCOUNTER 2024-06-03 07:35 | Outpatient (AMB) | payer OTHER, SELFPAY ==
--- NOTE | 2024-06-03 07:35 | A.OFFVIS_ITS ---
Intake Visit Reasons: 6w/med review/US results(set) Intake Note: Patient presents today for tele visit for microscopic hematuria, incontinence, and ultrasound results * Imaging completed: 04/06/24 Urology Medication: none Antibiotic Allergy: none Blood Thinner: none Consignee Required: No Allergies latex Adverse Reaction (Mild, Verified 06/03/24 08:08) hives Medication List - Last Reconciled 06/03/24 by GEORGE Barcenas-JASMYNE cholecalciferol (vitamin D3) 125 mcg PO DAILY duloxetine 90 mg (3 x 30 mg) PO DAILY 30 days hydroxyzine HCl 25 mg PO TID PRN lisinopril-hydrochlorothiazide 10-12.5 mg 1 tab PO DAILY magnesium oxide 400 mg PO DAILY 30 days mirtazapine 7.5 mg PO BEDTIME 30 days Myrbetriq ER (mirabegron) 50 mg PO DAILY NS omega 0-tzc-kkr-fish oil 100-160-1,000 mg (Fish Oil) caps PO ondansetron 8 mg PO Q8H prazosin 2 mg PO BEDTIME 30 days HPI Comments Details: Alice is a pleasant 43-year-old female patient of Dr. Serrano. She has a past medical history of hypertension, allergies, vitamin-D deficiency, mixed lipidemia, obesity, anxiety, and depression. She is being feeling followed up on today via video telehealth for her microscopic hematuria and lower urinary tract symptoms. Of note, patient was last seen approximately 2 months ago at which time she underwent an office cystoscopy with Dr. Iker salgado for her microscopic hematuria in the setting of previous secondhand smoke exposure. Cystoscopy findings: Mild erythema-nonspecific, mild to moderate trabeculations, no suspicious bladder lesions visualized. During initial visit patient was also reporting episodes of stress/urge incontinence at which time she was started on 25 mg of Myrbetriq. During last office visit she had reported some improvement in urinary symptoms therefore Myrbetriq was increased to 50 mg daily. In discussion with the patient today she reports significant improvement in episodes of nocturia she had been experiencing however continues with urinary urgency with episodes of stress/urge incontinence. We discussed at length further treatment options of lower urinary tract symptoms and risks and benefits of these treatment options. She otherwise denies dysuria, foul smelling urine, changes to urinary stream, flank pain, fever, and or chills. She reports previously being on Detrol and felt this was helpful however stopped as she became and never restarted the medication. Recent retroperitoneal ultrasound results reviewed with the patient today 04/14 bilateral kidneys with no calculi or hydronephrosis. The bladder is well distended. Bladder jets are demonstrated. Pre void bladder volume is approximately 375 mL. Postvoid bladde r volume is approximately 30 mL. Incidental note of right complex ovarian cysts. Patient reports this is not new and she follows up with her binder roller regarding this issue. She does have a previous history of 3 vaginal deliveries. She otherwise offers no other issues or concerns at this time. Urine Cytology 03/15 Negative for high-grade urothelial carcinoma. [facility] Medical History Nausea and vomiting in adult Acute respiratory disease Major depressive disorder, recurrent, severe with psychotic features Decreased hearing Tinnitus Reduced visual acuity Pyelonephritis (03/22/15) (08/04/19) Obesity (12/12/18) Migraine Menorrhagia Irritable bowel syndrome Insomnia Hiatal hernia Hemorrhoids Gastroesophageal reflux disease Fracture of hand (04/22/09) Female stress incontinence Blood in urine Severe carpal tunnel syndrome of right wrist Medical clearance for psychiatric admission Hypertriglyceridemia Positive Tinel's sign Positive Phalen maneuver Cervicalgia HTN (hypertension) Decreased hearing of both ears Environmental and seasonal allergies Tinnitus of both ears Knee pain Excessive daytime sleepiness Loud snoring Vitamin D deficiency Impaired fasting glucose Mixed dyslipidemia Morbid obesity Hiatal hernia with gastroesophageal reflux Family history of premature CAD Annual visit for general adult medical examination with abnormal findings Anxiety and depression Surgical History H/O endoscopy H/O wisdom tooth extraction Family History Father Substance use disorder Mental health disorder Alcoholism Myocardial infarction acute, Onset Age: 55 Depression Maternal Uncle Testicular cancer Social History Household Members: Family Household Members Other:: and 2 children Housing: House Do you presently have visiting nurse or other home services: No Alcohol intake: current Alcohol intake frequency: holidays/special occasions only Patient Tobacco Use Status: Never used Tobacco e-Cigarette/Vaping Use: Never Used Substance Use Type: Marijuana service: No Current occupational status: unemployed and other 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 Sexual orientation: Straight/Heterosexual Gender identity: Female Cognitive needs: No Hearing needs: No Vision needs: Yes Review of Systems Const All systems reviewed & are unremarkable except as noted in HPI and below Physical Exam Const General: cooperative, healthy appearing, comfortable, no acute distress, well developed, alert and awake Orientation/consciousness: patient oriented x3 Resp Effort & Inspection: normal respiratory effort and able to speak in complete sentences Neuro General: patient oriented x3 Psych Appearance: grossly normal Mental Status: mental status grossly normal Speech and movement: Clear speech present Affect: normal affect Attitude: cooperative Thought process: Normal thought process present Thought content: Normal thought content present Insight: Fair insight present (Psych) Judgement: Fair judgement present (Psych) Telehealth Telehealth Telehealth Platform: [facility] Location of provider rendering services: practice address Location of patient: address on file Patient Identification confirmed using: Name, : Yes Telehealth method: video Patient verbally consented to treatment: Yes Patient verbally consented to billing insurance company: Yes Patient informed of any privacy concerns related to visit: Yes Minutes spent on Phone/Video with Pt.: 20 Results Reviewed Results Reviewed: Date of Service: 04/06/24 EXAMINATION: US RETROPERITONEAL COMPLETE (RENAL) FINDINGS: RIGHT KIDNEY: 10.7 x 5.4 x 5.9 cm (SAG x AP x TRV). No hydronephrosis. No renal calculi. Renal cortical thickness is normal. Limited visualization. LEFT KIDNEY: 11.9 x 5.6 x 5.1 cm (SAG x AP x TRV). No hydronephrosis. No renal calculi. Renal cortical thickness is normal. Limited visualization. BLADDER: Well distended. Bilateral ureteral jets are demonstrated. Prevoid bladder volume is 374 mL. Postvoid bladder volume is 28 mL. ADDITIONAL FINDINGS: Incidental note on limited images of the right adnexa of a 4.3 x 4.7 x 4.2 cm complex right ovarian cyst. Dedicated pelvic ultrasound imaging recommended for further evaluation. IMPRESSION: 1. No hydronephrosis. No renal calculi. 2. Incidental note on limited images of the right adnexa of a 4.3 x 4.7 x 4.2 cm complex right ovarian cyst. Dedicated pelvic ultrasound imaging recommended for further evaluation Assessment & Plan Assessment & Plan (1) Bladder wall thickening: Code(s): N32.89 - Other specified disorders of bladder Category: Medical (2) Mixed stress and urge urinary incontinence: Code(s): N39.46 - Mixed incontinence Category: Medical (3) Microscopic hematuria: Code(s): R31.29 - Other microscopic hematuria Category: Medical Plan Recent retroperitoneal ultrasound results reviewed with the patient today; as noted above. Continue Myrbetriq. Start VESIcare 5 mg daily. We discussed at length potential causes of lower urinary tract symptoms patient was experiencing as well as further interventions and risks and benefits of these interventions. We discussed bladder triggers/irritants. Continue to follow-up with binder roller as planned. We discussed pelvic floor therapy/exercises. Follow-up in 1-3 months with [facility]; or sooner with any issues, concerns, and or questions. Medications: New solifenacin (Vesicare) 5 mg PO DAILY 30 days 30 tabs 3RF Changed From Myrbetriq ER (mirabegron) 50 mg PO DAILY 30 tabs 0RF NS To Myrbetriq ER (mirabegron) 50 mg PO DAILY 90 days 90 tabs 1RF NS Patient Instructions: The patient had an opportunity to ask questions regarding the treatment plan. All questions were answered. Physical exam, labs, and imaging were discussed and reviewed in detail. As well as risks, benefits, and discussion of treatment choices. No major barriers to understanding were identified. The patient expressed understanding and agreement with the above treatment plan. The patient was made aware they should contact our office by phone for worsening of their current condition, the appearance of new symptoms, or with any questions or concerns. Compliance is encouraged with any medications and follow up testing that is ordered. It is a privilege to be allowed the opportunity to participate in? your urological care.? Again, if you have any questions or concerns If you have any questions or concerns please do not hesitate to contact me. The office is [phone]. This note is constructed using voice recognition software. While every effort has been made to ensure accuracy press technician errors may have been included. Yours sincerely, GEORGE Barcenas-BC Coding Level of Care Code Tele Est Pt Level 4 (52630) Diagnoses Bladder wall thickening N32.89 Mixed stress and urge urinary incontinence N39.46 Microscopic hematuria R31.29
--- OUTSIDE RECORDS SUMMARY | 2024-06-03 07:37 | XMS_ITS | Data Portability ---
Author Organization [place] [facility], [place] - [facility] - Address [address] [place] [address] Care Team Providers Care Grapple Crew Leader Name Role Phone ROBIN PENALOZANN Primary Care [...] 6-8 weeks. This visit was conducted via Good Deal website [employer] using both audio and video during the 2019 COVID-19 pandemic. Patient consented to non face to face service. Patient location: car Provider location: [facility] Start time: 1417 End time: 1424 Participants [...] This visit was conducted via telehealth website [employer] using both audio and video during the 2020. Patient consented to non face to face service. Patient location: home Provider location: [facility] Start time: 1424 End time: 1429 Participants [...] This visit was conducted via telehealth website [employer] using both audio and video during the 2019. Patient consented to non face to face service. Patient location: home Provider location: [facility] Start time: 1352 End time: 1401 Participants [...] HCl 50 mg tablet 2020 021 [facility], [address], [place], [address], 15:27:21 duloxetine 30 mg capsule,del ayed release 2020 021 [facility], [address], [place], [address], 15:27:17 duloxetine 60 mg capsule,del ayed release 2020 021 [facility], [address], [place], [address], 15:27:17 duloxetine 30 mg capsule,del ayed release 2021 022 [facility], [address], [place], [address], 15:13:01 duloxetine 60 mg capsule,del ayed release 2021 022 [facility], [address], [place], [address], 2 15:12:56 hydroxyzine HCl 50 mg tablet 2021 022 [facility], [address], [place], [address], 15:12:57 Patient TargetsNo targets recorded. Patient InstructionsNo instructions recorded. Reason for Referral None Reported. Problems Name Problem SNOMED Code Status Onset Date Resolution Date Notes Provider Name and Address Organization Details Recorded Time Multiple environm ental allergie s Active scotty sepulveda [facility] 6 12:23:04 Irritabl e bowel syndrome 04654134 Active celiac disease Ab testing Neg 11/03; improved w/ Gluten free diet scotty sepulveda [facility] 6 12:23:04 Gastroes ophageal reflux disease 914587885 Active scotty sepulveda [facility] 6 12:23:04 Mixed anxiety and depressi ve disorder 710527953 Active hx of post depressi on and took lexapro but felt poor response , wellbutr in was very neg side effects (bad vivid dreams of her hurting her family); zoloft was very good response but had to stop when breast feeding bad w/d (didn't wean) scotty sepulveda [facility] 6 12:23:03 Migraine 79689788 [facility] 12:[facility] Hiatal hernia 43896074 [facility] 12:23:04 Hemorrho ids 86170520 Completed 12/11/2018 tx'd w/ anusol-H C Timbo Mckeon DO [address], [place], [address] , [facility] 9 17:20:55 Female stress incontin ence 43693134 [facility] 7 18:34:40 Pyelonep hritis 42753264 Completed 201412/11/2018 tx'd w/ Levaquin Timbo Mckeon DO [address], [place], [address] , [place] [facility] 9 17:19:51 Insomnia 936333089 [facility] 6 12:23:03 Fracture of hand 59608405 Completed 200912/11/2018 Left Timbo Mckeon DO [address], [place], [address] , [place] [facility] 9 17:20:04 Tinnitus 95206653 [facility] 6 12:23:04 Decrease d hearing 150923841 Completed 12/11/2018 Tmibo Mckeon DO [address], [place], [address] , [place] [facility] 9 17:19:28 Reduced visual acuity 97250635 Active scotty banda null, [place] - [facility] 6 12:23:04 Sensorin eural hearing loss of bilatera l ears 540553215 Active Asha Bradford [address], [place], [address] , [place] [facility] 6 13:11:25 Menorrha obi 341140629 Active Margy Becker MD [address], [place], [address] , [place] [facility] 7 22:56:04 Blood in urine 96663870 Completed 12/11/2018 Timbo Mckeon DO [address], [place], [address] , [place] [facility] 9 17:19:34 Obesity 799977074 Active 2018 Timbo Mckeon DO [address], [place], [address] , [place] [facility] 9 01:18:28 Pregnanc y 61102261 Completed 201903/16/2020 Aliyahjanet Whitehead null, [place] - [facility] 0 12:25:25 Gestatio nal diabetes mellitus class A2 29680662 Active 2019 Aliyahjanet Whitehead null, [place] - [facility] 0 12:25:22 Gestatio nal diabetes mellitus class A2 45819233 Completed 2019 Aliyahjanet [place] null, [place] - [facility] 0 12:25:22 Depressi ve disorder 71742761 Active 2020 Yaya Casanova DO [address], [place], [address] , [place] [facility] 1 15:54:10 Notes:hx plantar fasciitis; hx [...] Non-Stress Test completed Malka VANEGAS, [address]i [address], [place], [address], [facility] 02/25/2020 13:33:54 02/18/20 20 Non-Stress Test completed Cali Ace MD [address], [place], [address], [facility] 02/18/2020 15:49:47 02/11/20 20 Non-Stress Test completed Cali Ace MD [address], [place], [address], [facility] 02/11/2020 15:03:18 01/12/20 20 Non-Stress Test completed Cali Ace MD [address], [place], [address], [place] [facility] 01/12/2020 18:21:04 12/19/19 19 Date of Last Pap Smear completed Timbo Mckeon DO [address], [place], [address], [facility] 12/24/2018 14:45:47 06/30/19 17 Ortho Corticosteroid Injection completed Vy Feliciano [facility] 06/29/2016 12:26:26 06/29/19 17 Cystoscopy (female) completed Chuck VANEGAS, [address], [place], [address], [facility] 06/28/2016 12:41:47 06/14/19 17 Bladder Scan completed Chuck VANEGAS, [address], [place], [address], [facility] 06/14/2016 13:22:58 04/05/20 16 Tympanometry completed Asha Bradford [address], [place], [address], [facility] 04/05/2016 13:11:04 04/05/20 16 Audiogram.old completed Asha Bradford [address], [place], [address], [facility] 04/05/2016 13:11:04 11/21/19 15 Other completed Georgi Moctezuma MD [address], [place], [address], [facility] 01/13/2016 00:18:30 10/21/19 15 Other completed Georgi Moctezuma MD [address], [place], [address], [facility] 01/13/2016 00:18:30 04/22/19 00 [place] Teeth Removed completed Georgi Moctezuma MD [address], [place], [address], [facility] 01/12/2016 22:50:32 Oral surgery procedure completed Dena Argueta [facility] 04/06/2016 12:36:17 Imaging Results None recorded. Procedure Notes None recorded. Medical Equipment None Reported. Allergies Allergen ID Allergen Name Allergen Category Reaction Reaction Severity Criticality Documentation Date Start Date Code Code System Note Provider Name and Address Organization Details Recorded Time 410084 latex environme nt,medica tion hives moderate Not available 01/12/2016 90036 91 RxNorm Georgi Moctezuma MD [address], [place], [address], [facility] 6 22:23:54 340624 acetamino phen / hydrocodo ne medicatio n other moderate Not available 04/05/2016 31693 2 RxNorm facia l numbn ess scotty banda null, [facility] 6 12:23:03 133621 Wellbutri n medicatio n Not available Not available Not available 06/18/2016 52092 RxNorm vivid dream s/fri ghten ing ; used w/ post partu m alivia Moctezuma MD, Georgi Costa [address], [place], [address], [facility] 7 11:10:40 709570 adhesive tape environme nt,medica tion Not available Not available Not available 03/16/2020 91165 UNK Aliyah Julian null, [facility] 0 12:21:24 Medications Name Sig Start [...] e 137 mcg (0.1 %) nasal spray Miller 1 spray every day by intranas al [...] Not Available Not Available Not Available FreeStyle [place] Lite kit 03/16 completed Not Available Not [...] Smoking Status Never Smoker 12/11/18 Kathy Guallpa [facility], [place] - [facility] 12/11/2018 16:59:59 Do You Have An Advance Directive? No I Gave Her The Form For The Living Will And Health Power Of Meat Grinder, She Does Want To Be Resuscitated. She Does Not Want To Be Maintained On Chronic Life Support If There Is Little Hope Of A Meaningful Recovery. - 12/18/2018 Information not available 12/18/2018 What Is Your Level Of Alcohol Consumption? None [email or web address] Information not available 10/27/2019 Are You Blind [...] COVID-19 While That Case Was Ill? No [email or web address] Information not available 07/30/2019 In The 14 Days Before Symptom Onset, Have You Had Close Contact With A Person Who Is Under Investigation For COVID-19 While That Person Was Ill? No [email or web address] Information not available 07/30/2019 Have You Been To An Area Known To Be High Risk For COVID-19? No [email or web address] Information not available 07/30/2019 What Type Of Diet Are You Following? REGULAR Low Sodium Information not available 01/12/2016 Which Illicit Or Recreational Drugs Have You Used? None Information not available 12/11/2018 Do You Or Have You Ever Used E-cigarettes Or Vape? 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 No 12/11/18 Mh Information not available 04/06/2016 Have You Traveled Outside Of The [place] In The Last 21 Days (3 Weeks)? No Information not available 04/06/2016 Do You Have Any Orthodoxy Beliefs That May Impact Your Health Care [...] Details LastModified Time Father Myocardial infarction 55 [email or web address] Not available 04/25 18:44:02 Father Hypertensive disorder Not available 2016 18:44:02 Father Hyperlipidem ia [email or web address] Not available 2016 18:44:02 Paternal Aunt Malignant tumor of cervix [email or web address] Not available 2016 18:44:02 Paternal Aunt Dementia [email or web address] Not a vailable 04/25/2016 18:44:02 Mother Pyelonephrit [...] History Condition Response Number of Pregancies Y Enlarged Prostate N Erectile Dysfunction N Depression Y Reconstructive surgeries N Headaches/Migraines Y Head, Ears, Eyes, Nose, Throat Problems Y Urinary Tract Infections N Obesity Y Cancer N Endometriosis N Kidney Disease N Anxiety Y Elevated PSA N Urinary Problems Y Prolapse N Diabetes N Low Testosterone N Asthma Kidney Stone N Heart Disease N Gynecological History Statement/Question Response History [...] quadrivalent , PF 1 completed Maile sepulveda [facility] 03/15/2021 12:10:26 COVID-19, mRNA, LNP-S, PF, 30 mcg/0.3 mL dose 1 completed Savana sepulveda [facility] 08/30/2020 10:45:30 COVID-19, mRNA, LNP-S, PF, 30 mcg/0.3 mL dose 1 completed Savana sepulveda [facility] 08/30/2020 10:45:45 COVID-19, mRNA, LNP-S, PF, 30 mcg/0.3 mL dose 1 completed Maile sepulveda [facility] 03/15/2021 11:48:03 Influenza, split virus, trivalent, PF 8 cancelled patient objection Not Available [facility] 05/09/2019 02:33:30 Influenza, MDCK, quadrivalent , PF 8 completed Not Available [facility] 05/09/2019 03:23:32 Influenza, MDCK, quadrivalent , PF 9 completed Not Available [facility] 05/09/2019 03:01:50 Influenza, split virus, quadrivalent , PF 0 completed Savana sepulveda [facility] 01/05/2020 16:31:36 Tdap 3 completed Not Available [facility] 03/07/2020 09:20:47 Past Encounters Encounter ID Performer Location Encounter Start Date Encounter Closed Date Diagnosis/Indication Diagnosis SNOMED-CT Code Diagnosis ICD10 Code Diagnosis Note [id number] Anisha Mcclain [facility] [address] [place] [address] 01/12/2016 10:23:10 01/13/2016 12:09:34 Adult health examination 373935457 Z00.00 Hematology screening test 888452365 Z13.0 Hyperlipid emia screening 613135314 Z13.220 Endocrine/ metabolic screening 178788903 Z13.228 Mixed anxi ety and depressive disorder 691146938 F41.8 Tinnitus 40629107 H93.13 Decreased hearing 792135 001 H91.93 Reduced visual acuity 13 021812 H54.7 [facility] care 68918 5005 Z30.40 [id number] Lv lucas MD, Chandrakant Shipley [facility] [address] [place] [address] 04/05/2016 11:57:03 04/05/2016 13:17:18 Tinnitus 77926393 H93.13 At this time the patient has bilateral tinnitus, most likely due to her bilateral hearing loss. Please see plan as described above. FG Allergic r hinitis caused by pollen 05253986 J30.1 At this time the patient has [...] Sensorineu ral hearing loss of bilateral ears 817952853 H90.3 At this time the patient comes [...] will follow up as needed. FG Dizziness 693797406 R42 At this time the patient also complains of an off balance feeling with walking up and down stairs, but does not have any other problems. We will see if this improves on nasal steroid spray. She had no further questions and will follow up as needed for now. FG [id number] Asha Bradford [facility] [address] [facility],[address] [place] [address] 04/05/2016 13:09:55 04/05/2016 13:12:09 Sensorineural hearing loss of bilateral ears 439190142 H90.3 [id number] Eugenio VANEGAS, Margy Valdivia [facility] MAINTENA[facility] REPRESENTATIVE [place] [address] [place] [address],[address] [facility] [address] 04/06/2016 12:09:16 04/06/2016 13:47:10 Gynecologic examination 42430277 Z01.419 Screening for malignant neoplasm of cervix 273098774 Z12.4 Menorrhagia 635279451 N9 2.0 History of urinary tract infection 7379982211 107 Z87.440 Surveillan ce of contraception 736806172 Z30.40 [id number] Eugenio VANEGAS, Margy Valdivia [facility] - ACCOUNT MAINTENANCE REPRESENTATIVE [place] [address] [place] [address],[address] [place] [address] 04/25/2016 17:48:13 04/25/2016 19:53:53 Menorrhagia 635558809 N92.0 Blood in urine 03573156 R31.9 [id number] Rhianna VANEGAS, Georgi Costa [facility] POS [address],[facility] [place] [address] 05/08/2016 10:01:31 05/08/2016 12:08:23 Migraine 65436052 G43.909 Mixed anxi ety and depressive disorder 124302423 F41.8 Carpal davonte simon syndrome 48516723 G56.00 Insomnia 075414850 G47.0 0 Hand pain 43876931 M79.6 42 Vitamin D deficiency 347 59509 E55.9 [id number] Chuck VANEGAS, [facility] - UROLOGY [facility] POS [address] [place] [address] 06/14/2016 12:22:40 06/14/2016 14:22:12 Microscopic hematuria 066339265 R31.21 she had 2-5 rbc on last ua done 04/26.17-has had full workup done in the past by another urologist and was negative but it was a while agozahida send urine for c/s and cytology-f ollow up for cystoscopy in office Renal colic 6811561 N23 she is having bilateral flank pain-previ ous urologist had checked a renal us but this may not strip 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-jc l do ct scan for stone search prior to cystoscopy [id number] Rhianna VANEGAS, Georgi Costa [facility] POS [address],[place] [address] 06/18/2016 10:33:06 06/18/2016 12:04:21 Mixed anxiety and depressive disorder 761594598 F41.8 [id number] Chuck VANEGAS, [facility]Y [facility] POS [address] [place] [address] 06/28/2016 12:09:59 06/28/2016 12:45:15 Blood in urine 41943173 R31.9 her cystoscopy shows mild chronic bullous cystitis and a diverticul um, mild grade 1 trabeculat ions-will start on suppressiv e dose macrodanti n for one monthfollo w up in 3mos [id number] Donnell VANEGAS, Luis Soliz [facility] - ORTHOPEDI CSURGERY [facility] POS [address] [place] [address] 06/29/2016 11:24:40 07/13/2016 10:46:48 Hand pain 16814125 M79.643 Carpal davonte simon syndrome 43844294 G56.01 G56.02 [id number] Donnell VANEGAS, Luis Soliz [facility] - ORTHOP[facility] [place] POS [address] [place] [address] 07/13/2016 11:07:42 07/13/2016 13:24:50 Pain in wrist 21694988 M25.531 Hand pain 38424007 M79.6 43 Carpal davonte simon syndrome 57608949 G56.01 G56.02 [id number] Rhianna VANEGAS, Georgi Costa [facility] [address],[place] [address] 07/16/2016 10:58:41 07/16/2016 11:42:57 Mixed anxiety and depressive disorder 982621893 F41.8 [id number] Donnell VANEGAS, Luis Reynaoli [facility] - ORTHOPEDI CSURGERY [place] [address] [place] [address] 08/13/2016 11:24:07 08/13/2016 12:23:07 Hand pain 89584950 M79.641 Pain in wrist 63138321 M 25.531 Carpal davonte simon syndrome 79139736 G56.01 G56.02 [id number] Donnell [facility]ANEGAS, [facility] [place] [address] [place] [address] 09/20/2016 11:45:56 09/20/2016 14:44:21 Pain in wrist 11379478 M25.531 M25.532 Hand pain 51803878 M79.6 41 Carpal davonte simon syndrome 25064741 G56.01 G56.02 [id number] Chuck VANEGAS, [facility] - [facility]OLOGY [facility] [place] POS [address] [place] [address] 10/04/2016 11:54:33 10/04/2016 12:31:12 Blood in urine 52738566 R31.9 she had history of microhemat uriawas given 3mos of suppressiv e dose abxhas not seen any blood in urinewill check ua/culture Bladder mu scle dysfunction - overactive 478846752 N32.81 she goes to bathroom every 2 hours during day and 2 times at night, occ urge incontinen cetrial of myrbetriq Female str ess incontinence 62910870 N39.3 -she does not require pads for the problemonl y occurs occasional ly with sneezingdi scussed treatment options- e will observe for now [id number] Donnell VANEGAS, Luis Soliz [facility] - ORTHOP[facility]I CSURGERY [place] [address] [place] [address] 10/08/2016 09:47:26 10/08/2016 10:46:23 Pain in wrist 58843958 M25.531 M25.532 Hand pain 60159325 M79.6 41 Carpal davotne simon syndrome 88524374 G56.01 G56.02 [id number] Donnell VANEGAS, Luis Soliz [facility] - ORTHOPEDI CSURGERY [facility] [address] [facility] [place] [address] 11/09/2016 10:50:45 11/09/2016 12:33:48 Pain in wrist 66631004 M25.531 M25.532 Neck pain 33288239 M54.2 Hand pain 67016480 M79.6 41 Carpal davonte simon syndrome 63075312 G56.01 G56.02 [id number] Rhianna VANEGAS, Georgi [facility] [address],[place] [address] 11/21/2016 10:22:19 12/11/2016 16:16:59 Low back pain 107621371 M54.5 Snoring 26062050 R06.83 [id number] Rhianna VANEGAS, Georgi [facility] [address],[place] [address] 01/10/2017 16:20:44 01/10/2017 17:19:55 Pain in left knee 0515732065 11538 M25.562 Depressive disorder 3548 9007 F32.89 Fatigue 53132557 R53.83 [id number] Chuck VANEGAS, [facility] - UROLOGY [facility] [address] [place] [address] 01/31/2017 11:27:16 01/31/2017 12:47:19 Bladder muscle dysfunction - overactive 116313416 N32.81 she goes to bathroom every 2 hours during day and 2 times at night, occ urge incontinen cemyrbetri q didn't help and wasn't covered Female str ess incontinence 49454673 N39.3 she is more bothered by it latelywoul d like to try physical therapyref erral to at [facility] given [id number] Tete Brian DO [facility] Maddie [facility] [address] [place] [address] 03/08/2017 11:55:53 03/13/2017 00:11:33 Fatigue 51384067 R53.83 --concerns for fatigue and insomnia. Have discussed sleep hygeine techniques with patient and reviewed the sleep study with her. Discussed weight loss and controllin g nasal congestion .--Pt will attempt these and follow up in the next 3 months. Allergic rhinitis 211486 04 J30.9 --nasal congestion Obesity 846001811 E66.9 --discusse d keeping track of her calories and aiming to eat about 500 calories less then what she normally eats.--Pt should f/u in 3 months on weight loss. [id number] Tete Brian DO Maddie [facility] [address] [place] [address] 06/12/2017 10:00:03 06/12/2017 10:41:36 Active or passive immunization 795011178 Z23 Fatigue 38672368 R53.83 --cont use of breathe right strips and use nasal steroid. Allergic rhinitis 621265 04 J30.9 --nasal congestion continued. Increase cetirizine to 10 mg daily, but go back to 5 mg if she feels overly fatigued. Cont fluticason e and also start azelastine daily. Gastroesop hageal reflux disease 367763715 K21.9 [id number] Tete Brian DO [facility] AM#[address] [place] [address] 08/12/2017 10:54:36 08/12/2017 11:48:10 Obesity 187691765 E66.9 --discusse d weight loss and diet again Insomnia 968058619 G47.0 0 --pt instructed to take amitriptyl ine daily.--Co unselled on possible side effects. RTC if insomnia worsens Neck pain 42049988 M54.2 --negative adsons test, negative spurling sign. Muscle spasm in b/l neck.--Giv en exercises for neck. OTC tylenol and ibuprofen. RTC as needed. Migraine 42673078 G43.90 9 [id number] Tete Brian DO [facility] AM#1 POS [address] [place] [address] 02/11/2018 10:03:22 02/11/2018 10:50:04 Administration of influenza vaccine 50788071 Z23 Migraine 60183704 G43.90 9 --fioricet , amitriptyl ine and topiramate Insomnia 070884364 G47.0 0 --pt instructed to take amitriptyl ine daily.--Co unselled on possible side effects. RTC if insomnia worsens Environmental allergy 42 9448422 T78.49XA [id number] Shade VANEGAS, Nitin [facility] AM#[address] [place] [address] 04/02/2018 14:24:14 04/02/2018 15:10:58 Adult health examination 330204163 Z00.00 Migraine 23208434 G43.90 9 [id number] Timbo Mckeon DO [facility] [address] [facility] [place] [address] 12/11/2018 16:42:55 12/11/2018 17:56:44 Bladder muscle dysfunction - overactive 577119270 N32.81 she has urinary incontinen ce and requesting a refill of the detrol, this has helped her in the past Body mass index 30+ - obesity 175244876 Z68.39 The patient's current weight is 209# with a height of 5' 1.25 and a correspond ing BMI (Body Mass Index) of 39.2. The medical definition of Obesity is a BMI greater than 30. Your [place] Body Weight is approximat malinda about 116#. [...] migraine prophylaxi s and weight loss. Migraine 55163491 G43.90 9 see the above plan [id number] Timbo Mckeon DO [facility]#1 [address] [place] [facility] [place] [address] 12/18/2018 09:57:19 12/18/2018 11:37:10 Adult health examination 755086200 Z00.00 Female Complete Physical Exam: I discussed [...] exercise, diet. Achieve/ma intain ideal body weight. [place] body weight is about 116 pounds,Adv anced directives : I gave the patient the form for LIVING WILL and health power of assistant prosecuting attorney from the [place] [employer], the patient does want to be resuscitat ed but the patient does not want to be maintained on chronic life support if there is little hope of meaningful recovery. Active or passive immunization 062840420 Z23 Flu vaccine today, She is up to date with the Tdap Body mass index 30+ - obesity 944225669 Z68.38 The patient's current weight is 206.75# with a height of 5' 1.25 and a correspond ing BMI (Body Mass Index) of 38.7. The medical definition of Obesity is a BMI greater than 30. Your [place] Body Weight is approximat malinda about 116#. A reduced calorie, reduced carbohydra te weight reduction diet as well as increased activity.. She has lost about 3# since the last visit Hyperhidro sis of axilla 367761378 L74.510 Drysol Jessie.ly to axilla once daily at first and then about three times per week, do not apply to fresh shaven skin. Elevated blood-pressure reading without diagnosis of hypertension 158388734 R03.0 I encouraged the patient to check the blood pressure and log the results. Please follow a reduced sodium diet and maintain/a chieve ideal body weight. [id number] Malka VANEGAS, Cali Carter [facility] - ACCOUNT MAINTENANCE REPRESENTATIVE [facility] POS [address] [place] [address] 07/30/2019 10:48:16 07/30/2019 12:44:41 test positive 934475091 Z32.01 Mild hyper emesis gravidarum 43555932 O21.0 Reviewed and hyperemesi s with patient. Reviewed diet at length. Questions answered. Recommend consider hold PNV. Start vitamin B6, unisom. Ob dating u/s in 1 week. f/u 1wk. Amenorrhea 35656578 N91. 2 Reviewed findings, positive test. [id number] Malka VANEGAS, Cali Carter [facility] - ACCOUNT MAINTENANCE REPRESENTATIVE [facility] [employer] POS [address] [place] [address] 08/04/2019 11:31:16 08/04/2019 13:34:46 Disorder of menstruation 022020096 N92.6 Ob u/s reviewed, show viable iup consistent with LMP dating. Reviewed with patient. Routine an tenatal care 288499617 Z34.81 Z3A.08 Venereal d isease screening 179681089 Z11.3 Advanced m aternal age 742287936 O09.899 [id number] Malka VANEGAS, [facility] - ACCOUNT MAINTENANCE REPRESENTATIVE [facility] POS [address] [place] [address] 08/18/2019 11:25:44 08/18/2019 13:21:34 Advanced maternal age 649866801 O09.899 Routine an tenatal care 840609767 Z34.81 Z3A.08 Mild hyper emesis gravidarum 08395730 O21.0 mostly resolved [id number] Malka VANEGAS, [facility]NA[facility]CE [facility] POS [address] [place] [address] 7 09/22/2019 13:57:14 09/22/2019 14:40:34 Multigravida of advanced maternal age 715917810 O09.522 Z3A.15 [id number] Malka VANEGAS, [facility] - [facility] POS [address] [place] [address] 7 10/20/2019 13:50:29 10/20/2019 15:17:10 Multigravida of advanced maternal age 680921441 O09.523 Z3A.19 [id number] Primitivo VANEGAS, Dickson [facility] - [place] [facility] POS [address] [place] [address] 10/27/2019 10:57:43 10/27/2019 14:41:15 Advanced maternal age 651570037 O09.899 expo sure to alcohol 712198576 O35.4XX9 expo sure to drug 778385309 O35.5XX9 Tolterodin e exposure [id number] Malka VANEGAS, [facility] ACCOUNT [facility]INTENANCE [facility] POS [address] [place] [address] 7 11/24/2019 14:02:44 11/24/2019 15:47:27 Advanced maternal age 979105450 O09.899 Z3A.24 [id number] Malka VANEGAS, [facility] - ACCOUNT MAINTENANCE REPRESENTATIVE [facility] POS [address] [place] [address] 12/08/2019 13:27:12 12/08/2019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 Dialysis Refused With clothes 201.014166460715 BP Diastolic BP Location Tested BP Systolic BP Type 80 R arm 138 sitting Fetus Heart Rate Present Fetus Movement Comments Initial ob visit -In office ob dating us today - c/o nausea. Ob u/s reviewed, show viable iup consistent with LMP dating. Reviewed with patient. Nausea, cont. Able to tolerate some po. Reviewed [place], patient would like to proceed. Reviewed diet and course. f/u 2wk, [place] next visit. labs next visit. Flowsheet Date 08/18/2019 Jackson Score Blood Edema Fundus Height Fundus Units Glucose Ketones Leukocytes Nitrite Labor Signs Protein Cervic Dilation Cervic Effacement Cervic Station none neg Type Weight in lbs Pre/Post Dialysis Refused With clothes 202.727613337829 BP Diastolic BP Location Tested BP Systolic BP Type 78 R arm 130 sitting Fetus Heart Rate Present A 150 Fetus Movement Comments ob/fu -Initial ob labs drawn today- c/o pelvic cramping due to constipation on Saturday, Dr. Marquez prescribed Dulcolax (bisacodyl) 5 mg tablet,delayed release. Pt has been feeling better. No other c/o. labs today. [place] test reviewed. Patient would like to proceed. N/V much improved. PTL signs and symptoms reviewed. f/u 5wk. Flowsheet Date 09/22/2019 Jackson Score Blood Edema Fundus Height Fundus Units Glucose Ketones Leukocytes Nitrite Labor Signs Protein Cervic Dilation Cervic Effacement Cervic Station trace none neg Type Weight in lbs Pre/Post Dialysis Refused With clothes 205.269717136076 BP Diastolic BP Location Tested BP Systolic BP Type 80 L arm 132 sitting Fetus Heart Rate Present A 150 Fetus Movement Comments ob/fu - nausea has decreased . c/o pelvic pain when standing or shifting side to side in bed. Reviewed [place] neg. No other c/o. PTL signs and symptoms reviewed. Sched [facility] u/s. f/u 4wk. Flowsheet Date 10/20/2019 Jackson Score Blood Edema Fundus Height Fundus Units Glucose Ketones Leukocytes Nitrite Labor Signs Protein Cervic Dilation Cervic Effacement Cervic Station 20 none neg Type Weight in lbs Pre/Post Dialysis Refused With clothes 208.84516880387 BP Diastolic BP Location Tested BP Systolic BP Type 78 R arm 120 sitting Fetus Heart Rate Present A 150 Fetus Movement A Yes Comments ob/fu - MFM scheduled on 10/26. c/o continues to have nausea, frequent crackling in her right ear, nasal congestion, mild nose bleeds. No other c/o. Exam neg, TM neg. recommend saline mist. [facility] u/s sched 10/26. PTL signs and symptoms [...] in lbs Pre/Post Dialysis Refused With clothes 206.300198100821 BP Diastolic BP Location Tested BP Systolic BP Type 72 L arm 124 sitting Fetus Heart Rate Present A 150 Fetus Movement A Yes Comments Glucose and cbc labs today. Ingrown hair has been having some discomfort. Exam neg. 1hr gluc today. Reviewed [facility] u/s. PTL signs and symptoms reviewed. f/u 2wk. Flowsheet Date 12/08/2019 Jackson Score Blood Edema Fundus Height Fundus Units Glucose Ketones Leukocytes Nitrite Labor Signs Protein Cervic Dilation Cervic Effacement Cervic Station none neg Type Weight in lbs Pre/Post Dialysis Refused With clothes 208.060641550671 BP Diastolic BP Location Tested BP Systolic BP Type 70 L arm 118 sitting Fetus Heart Rate Present A 150 Fetus Movement A Yes Comments ob fu. No complains. Reviewe d 3hr gtt pos. refer to [facility], dietitian. Send glucometer, chem strips, lancets. PTL [...] in lbs Pre/Post Dialysis Refused With clothes 207.506707792407 BP Diastolic BP Location Tested BP Systolic BP Type 72 L arm 124 sitting Fetus Heart Rate Present A 145 Fetus Movement A Yes Comments Pt c/o pain on hips when sle eping. Occ tightening muscle on ankle and foot. Denies other c/o. MFM u/s reviewed. BS fasting intermitt elevated, adjusting diet per records management specialist. PTL signs and symptoms reviewed. f/u 2wk. Flowsheet Date 01/05/2020 Jackson Score Blood Edema Fundus Height Fundus Units Glucose Ketones Leukocytes Nitrite Labor Signs Protein Cervic Dilation Cervic Effacement Cervic Station 32 none neg Type Weight in lbs Pre/Post Dialysis Refused With clothes 205.101179218515 BP Diastolic BP Location Tested BP Systolic [...] in lbs Pre/Post Dialysis Refused With clothes 205.979385729875 BP Diastolic BP Location Tested BP Systolic BP Type 72 L arm 112 sitting Fetus Heart Rate Present A 135 Fetus Movement A Yes Comments Ob f/u, c/o still having leg cramps. States had episode of dizziness resolved after Juice. BS has been better. NST reactive. [facility] u/s schedule for next . PTL signs [...] in lbs Pre/Post Dialysis Refused With clothes 205.179638255028 BP Diastolic BP Location Tested BP Systolic [...] in lbs Pre/Post Dialysis Refused With clothes 204.463290402842 BP Diastolic BP Location Tested BP Systolic [...] in lbs Pre/Post Dialysis Refused With clothes 205.308928847702 BP Diastolic BP Location Tested BP Systolic [...] in lbs Pre/Post Dialysis Refused With clothes 205.384366799929 BP Diastolic BP Location Tested BP Systolic [...] in lbs Pre/Post Dialysis Refused With clothes 201.773034303539 BP Diastolic BP Location Tested BP Systolic BP Type 80 L arm 120 sitting Fetus Heart Rate Present A 145 Fetus Movement A Yes Comments ob/fu - Pt was at [facility] L&D on Saturday due to having contractions- [...] in lbs Pre/Post Dialysis Refused With clothes 192.044762319383 BP Diastolic BP Location Tested BP Systolic [...]
--- OUTSIDE RECORDS SUMMARY | 2024-06-03 07:37 | XMS_ITS | Continuity of Care Document ---
Author Name [facility] Organization [facility] Care Team Providers Care Medical Technician Name Role Phone [facility] Unavailable Unavailable Medications Combined list of outpatient [...] CITRON PHARMA L, 500 ea. BOTTLE Active [id number] 4 2023 10 Pharmac y Data Transac tion Service Facilit y Benzonatate ([employer]) 100 CAPSULE in 1 BOTTLE Active [id number] 06/26/19 2 4 2023 60 Pharmac y Data Transac tion Service Facilit y DIAZEPAM (DIAZEPAM), 5MG, TABLET, ORAL, IVAX PHARMACEUT, 100 ea. BOTTLE Active [id number] 4 2023 10 Pharmac y Data Transac tion Service Facilit y DULOXETINE HCL (DULOXETINE HCL), 60 MG, CAPSULE DR, ORAL, BRECKENRIDG E, 90 ea. BOTTLE Active [id number] 4 2023 90 Pharmac y Data Transac tion Service Facilit y DULOXETINE HCL (DULOXETINE HCL), 60 MG, CAPSULE DR, ORAL, BRECKENRIDG E, 90 ea. BOTTLE Active [id number] 4 2023 90 Pharmac y Data Transac tion Service Facilit y LIDOCAINE (lidocaine) , 5 %, ADH. PATCH, TOPICAL, AMNEAL PHARMACE, 30 ea. BOX Active [id number] 4 2023 30 Pharmac y Data Transac tion Service Facilit y LISINOPRIL (lisinopril ), 10 MG, TABLET, ORAL, LUPIN PHARMACEU, 1000 ea. BOTTLE Active [id number] 4 2023 30 Pharmac y Data Transac tion Service Facilit y LISINOPRIL (lisinopril ), 10 MG, TABLET, ORAL, LUPIN PHARMACEU, 1000 ea. BOTTLE Active [id number] 4 2023 30 Pharmac y Data Transac tion Service Facilit y LISINOPRIL (LISINOPRIL ), 5MG, TABLET, ORAL, LUPIN PHARMACEU, 1000 ea. BOTTLE Active [id number] 3 2022 30 Pharmac y Data Transac tion Service Facilit y LISINOPRIL (LISINOPRIL ), 5MG, TABLET, ORAL, LUPIN PHARMACEU, 1000 ea. BOTTLE Active [id number] 4 2023 30 Pharmac y Data Transac tion Service Facilit y LISINOPRIL- HCTZ (LISINOPRIL /HYDROCHLOR OTHIAZIDE), 10-12.5MG, TABLET, ORAL, LUPIN PHARMACEU, 100 ea. BOTTLE Active [id number] 4 2023 30 Pharmac y Data Transac tion Service Facilit y LISINOPRIL- HCTZ (LISINOPRIL /HYDROCHLOR OTHIAZIDE), 10-12.5MG, TABLET, ORAL, LUPIN PHARMACEU, 100 ea. BOTTLE Active [id number] 4 2023 30 Pharmac y Data Transac tion Service Facilit y SULFAMETHOX AZOLE-TRIME THOPRIM (sulfametho xazole/trim ethoprim), 800-160 MG, TABLET, ORAL, RISING PHARM, 100 ea. BOTTLE Active [id number] 4 2023 14 Pharmac y Data Transac tion Service Facilit y Allergies, Adverse Reactions, Alerts Combined list of allergies from Department of Defense and Veterans Affairs facilities. It does not include entries that were removed or entered in error. Substance Category Reaction Severity Reaction type Status Date Reported Comments Source acetaminophe n-hydrocodon e Drug allergy Active One or More [facility] Facilities HEEL COMPRESSOR ADHESIVES Propensity to adverse reaction (finding) active 0 [facility] Adhesives Allergy to substance Active One or More A Facilities HEEL COMPRESSOR HYDROCODONE Drug allergy (disorder) active 0 [facility] Latex Drug allergy Active One or More A Facilities HEEL COMPRESSOR LATEX GLOVE Propensity to adverse reactions to drug (finding) active 0 [facility] VICODIN Propensity to adverse reactions to drug (finding) active 0 [facility] Immunizations Combined list of available immunizations from the Department of Defense and Veterans Affairs facilities. Immunization Series Date Given Administered By Site Reaction Lot Number CVX Code Drug [employer] Liaison Officer Status Comments Source COVID-19, mRNA, LNP-S, PF, 30 mcg/0.3 mL dose 2020 [facility] [place] (PFR) Not Given COVID-19, mRNA, LNP-S, PF, 30 mcg/0.3 mL dose [facility] COVID-19, mRNA, LNP-S, PF, 30 mcg/0.3 mL dose 2020 [place] (PFR) Not Given COVID-19, mRNA, LNP-S, PF, 30 mcg/0.3 mL dose DoD COVID-19, mRNA, LNP-S, PF, 30 mcg/0.3 mL dose 2020 [place] (PFR) Not Given COVID-19, mRNA, LNP-S, PF, 30 mcg/0.3 mL dose DoD Vital Signs Combined list of inpatient and outpatient Vital Signs from Department of Defense and Veterans Affairs, ranging from 12 months to all on record, depending upon the facility. Vital Sign Value Date Comments Source Systolic Blood Pressure 132 mm[Hg] 02/04/20 20:15:44 One or More [facility] Facilities HEEL COMPRESSOR Diastolic Blood Pressure 78 mm[Hg] 02/04/2020 20:15:44 One or More [facility] Facilities HEEL COMPRESSOR Procedures Combined list of: 1) Procedures from [...] Plan No data available for this section 06/03/2024 Ambulatory Pharmacy Functional Status Combined list of recent functional and cognitive assessments recorded at Department of Defense and Veterans Affairs (VA).VA Functional [place] Measurement (FIM) Scale: 1 = Total Assistance (Subject = 0% +), 2 = Maximal Assistance (Subject = 25% +), 3 = Moderate Assistance (Subject = 50% +), 4 = Minimal Assistance (Subject = 75% +), 5 = Supervision, 6 = Modified [place] (Device), 7 = Complete [place] (Timely, Safely). Assessment Date/Time Source Assessment Type Assessment Skill Assessment Score Assessment Details No data available for this section
== END 2024-06-03 08:16 | disposition home or self-care (01) ==
LOC: HO.HUSH 07:35
PROVIDERS: PCP Internal Medicine; Visit Provider Nurse Practitioner Family
DX: N32.89 Other specified disorders of bladder (principal); N39.46 Mixed incontinence; R31.29 Other microscopic hematuria
CPT/HCPCS: 99214

== ENCOUNTER 2024-06-05 13:42 | Outpatient (AMB) | payer OTHER, SELFPAY ==
--- NOTE | 2024-06-05 13:09 | A.OFFPSYCH_ITS ---
Intake Intake Visit Reasons: f/u consultation Internet Marketing Executive Required: No Allergies latex Adverse Reaction (Mild, Verified 06/03/24 08:08) hives Medication List - Last Reconciled 06/05/24 by Lynn Kemp APRN cholecalciferol (vitamin D3) 125 mcg PO DAILY duloxetine 90 mg (3 x 30 mg) PO DAILY 30 days hydroxyzine HCl 25 mg PO TID PRN lisinopril-hydrochlorothiazide 10-12.5 mg 1 tab PO DAILY magnesium oxide 400 mg PO DAILY 30 days mirtazapine 7.5 mg PO BEDTIME 30 days Myrbetriq ER (mirabegron) 50 mg PO DAILY 90 days NS omega 5-rsc-kht-fish oil 100-160-1,000 mg (Fish Oil) caps PO ondansetron 8 mg PO Q8H prazosin 2 mg PO BEDTIME 30 days solifenacin (Vesicare) 5 mg PO DAILY 30 days HPI- Psychiatric Chief Complaint: f/u consultation HPI Narrative: Pt reports continued improvement; she is more hopeful; tolerating meds without side effects; anxiety improved; no intrusive thoughts about hurting self; no SI or HI. pt reports she still struggles with ADHD symptoms; she is easily distracted; inattentive and forgetful at times; she is impulsive; has trouble finishing projects. she avoids boring tasks. pt has a long histroy of inattention and trouble focusing since childhood; she did well in school but often needed structure and reminders to stay on task. she was chatty as a child. she was not diagnosed with ADHD as a child and she was not encouraged to continue with school after HS. She has 2 first degree relatives with ADHD Past Psychiatric History: outpt tx since age 22. No IPLOC PAST MEDICTIONS: lexapro- increased anger wellbutrin- very negative/angry zoloft- woorked first time took - did not work on retrial prozac- ok for a bit and then stopped working effexor- excessive weight gain Subjective Subjective Subjective Medication Compliance: Yes Side effects from medications: No Review of Systems Medical Review of Systems: unchanged Mental Status Exam Mental Status Exam Patient Appearance: Well Grooomed and Appropriate Patient Orientation: Person, Place, Time and Situation Level of Consciousness: Awake, Appropriate and Alert Patient Behavior: Appropriate, Cooperative, Restless and Distractible Mood Description: Happy Affect Description: Happy Patient Cognition Impaired: No Ability to Follow Directions: Good Speech Pattern: Appropriate and Rambling Memory Description: Episodic Impaired Hallucinations: None Delusions: Not Present Thought Process: Distracted Thought Content: positive for Loose Associations Judgement: Good Assessment and Plan Assessment & Plan (1) SAMMY (generalized anxiety disorder): Status: Acute Code(s): F41.1 - Generalized anxiety disorder (2) Major depressive disorder, recurrent, moderate: Status: Acute Code(s): F33.1 - Major depressive disorder, recurrent, moderate (3) ADHD (attention deficit hyperactivity disorder), combined type: Status: Acute Code(s): F90.2 - Attention-deficit hyperactivity disorder, combined type Plan trial of vyvanse as this has the least potential for side effects including mood and anxiety symptoms Medications: New lisdexamfetamine (Vyvanse) Partial Fill upon patient request. 20 mg PO QAM 30 caps 0RF Refilled duloxetine 90 mg (3 x 30 mg) PO DAILY 30 days 90 caps 0RF mirtazapine 7.5 mg PO BEDTIME 30 days 30 tabs 0RF hydroxyzine HCl 25 mg PO TID PRN 90 tabs 1RF itching prazosin 2 mg PO BEDTIME 30 days 30 caps 0RF Counseling and coordination of Care Pt. Self Management counseling: Maintenance-social rhythm, Mod caffeine/ETOH intake, Nutrition education and improvement, General coping skills and Problem solving Medication management counseling: Effectiveness, Side effects, Dosing range, Duration, Drug interaction and Adherence Diagnosis and Prognosis Counseling: Accuracy of diagnosis, Prognosis over time, Impact of diagnosis on life functions, Impact of family relationship, Problematic behaviors secondary to diagnosis and Adequacy of current interventions Details: I spent 40 minutes reviewing the record, seeing the patient and documenting in the medical record. Counseling provided to the patient/caregiver as outlined below. Addressed patient/caregiver concerns regarding current medication regime including effective adherence. Addressed patient/caregiver concerns regarding diagnosis and prognosis including accuracy of diagnosis, prognosis over time, impact of diagnosis. Addressed patient/caregiver concerns regarding impact of recent stressors. [facility] Medical History (Updated 06/05/24 @ 14:07 by Lynn Kemp APRN) Nausea and vomiting in adult Acute respiratory disease Major depressive disorder, recurrent, severe with psychotic features Decreased hearing Tinnitus Reduced visual acuity Pyelonephritis (03/22/15) (08/04/19) Obesity (12/12/18) Migraine Menorrhagia Irritable bowel syndrome Insomnia Hiatal hernia Hemorrhoids Gastroesophageal reflux disease Fracture of hand (04/22/09) Female stress incontinence Blood in urine Severe carpal tunnel syndrome of right wrist Medical clearance for psychiatric admission Hypertriglyceridemia Positive Tinel's sign Positive Phalen maneuver Cervicalgia HTN (hypertension) Decreased hearing of both ears Environmental and seasonal allergies Tinnitus of both ears Knee pain Excessive daytime sleepiness Loud snoring Vitamin D deficiency Impaired fasting glucose Mixed dyslipidemia Morbid obesity Hiatal hernia with gastroesophageal reflux Family history of premature CAD Annual visit for general adult medical examination with abnormal findings Surgical History H/O endoscopy H/O wisdom tooth extraction Family History Father Substance use disorder Mental health disorder Alcoholism Myocardial infarction acute, Onset Age: 55 Depression Maternal Uncle Testicular cancer Social History Household Members: Family Household Members Other:: and 2 children Housing: House Do you presently have visiting nurse or other home services: No Alcohol intake: current Alcohol intake frequency: holidays/special occasions only Patient Tobacco Use Status: Never used Tobacco e-Cigarette/Vaping Use: Never Used Substance Use Type: Marijuana service: No Current occupational status: unemployed and other 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 family has moved around a lot due to pt grew up in [place]. lived with both parents; after her father lost his job they all moved in with grandmother; family experienced severe poverty- very traumatic. no running water, no food, no electricity at times. no telephone, no flushing toilets no lights. Father became ETOHIC and massive heart attack at age 55. Pt has 3 siblings. Substance History: none Trauma History: childhood severe poverty Coding Level of Care Code Est Pt Level 4 (84614) Diagnoses SAMMY (generalized anxiety disorder) F41.1 Major depressive disorder, recurrent, moderate F33.1 ADHD (attention deficit hyperactivity disorder), combined type F90.2
--- OUTSIDE RECORDS SUMMARY | 2024-06-05 13:45 | XMS_ITS | Continuity of Care Document ---
Author Name [facility] Organization [facility] Care Team Providers Care Marketing Ambassador Name Role Phone [facility] Unavailable Unavailable Medications Combined list of outpatient [...] CITRON PHARMA L, 500 ea. BOTTLE Active [id number] 4 2023 10 Pharmac y Data Transac tion Service Facilit y Benzonatate ([employer]) 100 CAPSULE in 1 BOTTLE Active [id number] 06/26/19 2 4 2023 60 Pharmac y Data Transac tion Service Facilit y DIAZEPAM (DIAZEPAM), 5MG, TABLET, ORAL, IVAX PHARMACEUT, 100 ea. BOTTLE Active [id number] 4 2023 10 Pharmac y Data Transac tion Service Facilit y DULOXETINE HCL (DULOXETINE HCL), 60 MG, CAPSULE DR, ORAL, BRECKENRIDG E, 90 ea. BOTTLE Active [id number] 4 2023 90 Pharmac y Data Transac tion Service Facilit y DULOXETINE HCL (DULOXETINE HCL), 60 MG, CAPSULE DR, ORAL, BRECKENRIDG E, 90 ea. BOTTLE Active [id number] 4 2023 90 Pharmac y Data Transac tion Service Facilit y LIDOCAINE (lidocaine) , 5 %, ADH. PATCH, TOPICAL, AMNEAL PHARMACE, 30 ea. BOX Active [id number] 4 2023 30 Pharmac y Data Transac tion Service Facilit y LISINOPRIL (lisinopril ), 10 MG, TABLET, ORAL, LUPIN PHARMACEU, 1000 ea. BOTTLE Active [id number] 4 2023 30 Pharmac y Data Transac tion Service Facilit y LISINOPRIL (lisinopril ), 10 MG, TABLET, ORAL, LUPIN PHARMACEU, 1000 ea. BOTTLE Active [id number] 2023 30 Pharmac y Data Transac tion Service Facilit y LISINOPRIL (LISINOPRIL ), 5MG, TABLET, ORAL, LUPIN PHARMACEU, 1000 ea. BOTTLE Active [id number] 3 2022 30 Pharmac y Data Transac tion Service Facilit y LISINOPRIL (LISINOPRIL ), 5MG, TABLET, ORAL, LUPIN PHARMACEU, 1000 ea. BOTTLE Active [id number] 4 2023 30 Pharmac y Data Transac tion Service Facilit y LISINOPRIL- HCTZ (LISINOPRIL /HYDROCHLOR OTHIAZIDE), 10-12.5MG, TABLET, ORAL, LUPIN PHARMACEU, 100 ea. BOTTLE Active [id number] 4 2023 30 Pharmac y Data Transac tion Service Facilit y LISINOPRIL- HCTZ (LISINOPRIL /HYDROCHLOR OTHIAZIDE), 10-12.5MG, TABLET, ORAL, LUPIN PHARMACEU, 100 ea. BOTTLE Active [id number] 4 2023 30 Pharmac y Data Transac tion Service Facilit y SULFAMETHOX AZOLE-TRIME THOPRIM (sulfametho xazole/trim ethoprim), 800-160 MG, TABLET, ORAL, RISING PHARM, 100 ea. BOTTLE Active [id number] 4 2023 14 Pharmac y Data Transac tion Service Facilit y Allergies, Adverse Reactions, Alerts Combined list of allergies from Department of Defense and Veterans Affairs facilities. It does not include entries that were removed or entered in error. Substance Category Reaction Severity Reaction type Status Date Reported Comments Source acetaminophe n-hydrocodon e Drug allergy Active One or More [facility] Facilities TRANSPORT PILOT ADHESIVES Propensity to adverse reaction (finding) active 0 [facility] Adhesives Allergy to substance Active One or More A Facilities TRANSPORT PILOT HYDROCODONE Drug allergy (disorder) active 0 [facility] Latex Drug allergy Active One or More A Facilities TRANSPORT PILOT LATEX GLOVE Propensity to adverse reactions to drug (finding) active 0 [facility] VICODIN Propensity to adverse reactions to drug (finding) active 0 [facility] Immunizations Combined list of available immunizations from the Department of Defense and Veterans Affairs facilities. Immunization Series Date Given Administered By Site Reaction Lot Number CVX Code Drug Gaming Floor Supervisor Status Comments Source COVID-19, mRNA, LNP-S, PF, 30 mcg/0.3 mL dose 2020 [employer] (PFR) Not Given COVID-19, mRNA, LNP-S, PF, 30 mcg/0.3 mL dose [facility] COVID-19, mRNA, LNP-S, PF, 30 mcg/0.3 mL dose 2020 [employer] [place] (PFR) Not Given COVID-19, mRNA, LNP-S, PF, 30 mcg/0.3 mL dose [facility] COVID-19, mRNA, LNP-S, PF, 30 mcg/0.3 mL dose 2020 [employer] [place] (PFR) Not Given COVID-19, mRNA, LNP-S, PF, 30 mcg/0.3 mL dose [facility] Vital Signs Combined list of inpatient and outpatient Vital Signs from Department of Defense and Veterans Affairs, ranging from 12 months to all on record, depending upon the facility. Vital Sign Value Date Comments Source Systolic Blood Pressure 132 mm[Hg] 02/04/20 20:15:44 One or More [facility] Facilities TRANSPORT PILOT Diastolic Blood Pressure 78 mm[Hg] 02/04/2020 20:15:44 One or More [facility] Facilities TRANSPORT PILOT Procedures Combined list of: 1) Procedures from [...] Plan No data available for this section 06/05/2024 Ambulatory Pharmacy Functional Status Combined list of recent functional and cognitive assessments recorded at [facility] ([facility] Functional [place] Measurement (FIM) Scale: 1 = Total Assistance (Subject = 0% +), 2 = Maximal Assistance (Subject = 25% +), 3 = Moderate Assistance (Subject = 50% +), 4 = Minimal Assistance (Subject = 75% +), 5 = Supervision, 6 = Modified [place] (Device), 7 = Complete [place] (Timely, Safely). Assessment Date/Time Source Assessment Type Assessment Skill Assessment Score Assessment Details No data available for this section
--- OUTSIDE RECORDS SUMMARY | 2024-06-05 13:46 | XMS_ITS | Data Portability ---
Author Organization [place] - [facility], [place] - [facility] - Address [address] [place] [address] Care Team Providers Care Adaptive Physical Education Teacher Name Role Phone ROBIN PENALOZANN Primary Care [...] 6-8 weeks. This visit was conducted via MyLife website [employer] using both audio and video during the 2019 COVID-19 pandemic. Patient consented to non face to face service. Patient location: car Provider location: [facility] Start time: 1417 End time: 1424 Participants [...] This visit was conducted via telehealth website [employer] using both audio and video during the 2020. Patient consented to non face to face service. Patient location: home Provider location: [facility] Start time: 1424 End time: 1429 Participants [...] This visit was conducted via telehealth website [employer] using both audio and video during the 2019. Patient consented to non face to face service. Patient location: home Provider location: [facility] Start time: 1352 End time: 1401 Participants [...] None recorded. Imaging None recorded. Medication Orders duloxetine 30 mg capsule,del ayed release 2021 022 [facility], [address], [place], [address], 15:13:01 duloxetine 60 mg capsule,del ayed release 04/06/ 2022 04/06/2 022 [facility], [address], [place], [address], 2 15:12:56 hydroxyzine HCl 50 mg tablet 2021 022 [facility], [address], [place], [address], 2 15:12:57 hydroxyzine HCl 50 mg tablet 2020 021 [facility], [address], [place], [address], 15:27:21 duloxetine 30 mg capsule,del ayed release 2020 021 [facility], [address], [place], [address], 15:27:17 duloxetine 60 mg capsule,del ayed release 2020 021 [facility], [address], [place], [address], 15:27:17 Patient TargetsNo targets recorded. Patient InstructionsNo instructions recorded. Reason for Referral None Reported. Problems Name Problem SNOMED Code Status Onset Date Resolution Date Notes Provider Name and Address Organization Details Recorded Time Multiple environm ental allergie s Active scotty sepulveda [facility] 6 12:23:04 Irritabl e bowel syndrome 93034508 Active celiac disease Ab testing Neg 11/03; improved w/ Gluten free diet scotty sepulveda [facility] 6 12:23:04 Gastroes ophageal reflux disease 301630417 Active scotty sepulveda [facility] 6 12:23:04 Mixed anxiety and depressi ve disorder 763400113 Active hx of post depressi on and took lexapro but felt poor response , wellbutr in was very neg side effects (bad vivid dreams of her hurting her family); zoloft was very good response but had to stop when breast feeding bad w/d (didn't wean) scotty sepulveda [facility] 6 12:23:03 Migraine 64237366 [facility] 12:[facility]03 Hiatal hernia 63363554 [facility] 12:23:04 Hemorrho ids 03427478 Completed 12/11/2018 tx'd w/ anusol-H C Timbo cMkeon DO [address], [place], [address] , [facility] 9 17:20:55 Female stress incontin ence 35537373 Active [facility] 7 18:34:40 Pyelonep hritis 09602452 Completed 201412/11/2018 tx'd w/ Levaquin Timbo Mckeon DO [address], [place], [address] , [place] [facility] 9 17:19:51 Insomnia 448847337 [facility] 12:23:03 Fracture of hand 15725816 Completed 200912/11/2018 Left Timbo Mckeon DO [address], [place], [address] , [place] [facility] 9 17:20:04 Tinnitus 13343079 [facility] 12:23:04 Decrease d hearing 890353571 Completed 12/11/2018 Timbo Mckeon DO [address], [place], [address] , [place] [facility] 9 17:19:28 Reduced visual acuity 51720692 Active scotty banda null, [place] - [facility] 6 12:23:04 Sensorin eural hearing loss of bilatera l ears 026369742 Active Asha Bradford [address], [place], [address] , [place] [facility] 6 13:11:25 Menorrha obi 233969717 Active Margy Becker MD [address], [place], [address] , [place] [facility] 7 22:56:04 Blood in urine 69518276 Completed 12/11/2018 Timbo Mckeon DO [address], [place], [address] , [place] [facility] 9 17:19:34 Obesity 751644863 Active 2018 Timbo Mckeon DO [address], [place], [address] , [place] [facility] 9 01:18:28 Pregnanc y 53252569 Completed 201903/16/2020 Aliyahjanet [place] null, [place] - [facility] 0 12:25:25 Gestatio nal diabetes mellitus class A2 66158254 Active 2019 Aliyahjanet [place] null, [place] - [facility] 0 12:25:22 Gestatio nal diabetes mellitus class A2 20994025 Completed 2019 Aliyahjanet [place] null, [place] - [facility] 0 12:25:22 Depressi ve disorder 34867277 Active 2020 Yaya Casanova DO [address], [place], [address] , [place] [facility] 1 15:54:10 Notes:hx plantar fasciitis; hx [...] Non-Stress Test completed Malka VANEGAS, [address], [place], [address], [facility] 02/25/2020 13:33:54 02/18/20 20 Non-Stress Test completed Cali Ace MD [address], [place], [address], [facility] 02/18/2020 15:49:47 02/11/20 20 Non-Stress Test completed Cali Ace MD [address], [place], [address], [facility] 02/11/2020 15:03:18 01/12/20 20 Non-Stress Test completed Cali Ace MD [address], [place], [address], [place] [facility] 01/12/2020 18:21:04 12/19/19 19 Date of Last Pap Smear completed Timbo Mckeon DO [address], [place], [address], [facility] 12/24/2018 14:45:47 06/30/19 17 Ortho Corticosteroid Injection completed Vy Feliciano [facility] 06/29/2016 12:26:26 06/29/19 17 Cystoscopy (female) completed Chuck VANEGAS, [address], [place], [address], [facility] 06/28/2016 12:41:47 06/14/19 17 Bladder Scan completed Chuck VANEGAS, [address], [place], [address], [facility] 06/14/2016 13:22:58 04/05/20 16 Tympanometry completed Asha Bradford [address], [place], [address], [facility] 04/05/2016 13:11:04 04/05/20 16 Audiogram.old completed Asha Bradford [address], [place], [address], [facility] 04/05/2016 13:11:04 11/21/19 15 Other completed Georgi Moctezuma MD [address], [place], [address], [facility] 01/13/2016 00:18:30 10/21/19 15 Other completed Georgi Moctezuma MD [address], [place], [address], [facility] 01/13/2016 00:18:30 04/22/19 00 [place] Teeth Removed completed Georgi Moctezuma MD [address], [place], [address], [facility] 01/12/2016 22:50:32 Oral surgery procedure completed Dena Argueta [facility] 04/06/2016 12:36:17 Imaging Results None recorded. Procedure Notes None recorded. Medical Equipment None Reported. Allergies Allergen ID Allergen Name Allergen Category Reaction Reaction Severity Criticality Documentation Date Start Date Code Code System Note Provider Name and Address Organization Details Recorded Time 817898 latex environme nt,medica tion hives moderate Not available 01/12/2016 58778 91 RxNorm Georgi Moctezuma MD [address], [place], [address], [facility] 6 22:23:54 944695 acetamino phen / hydrocodo ne medicatio n other moderate Not available 04/05/2016 98782 2 RxNorm facia l numbn ess scotty banda null, [facility] 6 12:23:03 212895 Wellbutri n medicatio n Not available Not available Not available 06/18/2016 98016 RxNorm vivid dream s/fri ghten ing ; used w/ post partu m alivia Moctezuma MD, Georgi Costa [address], [place], [address], [facility] 7 11:10:40 714615 adhesive tape environme nt,medica tion Not available Not available Not available 03/16/2020 60563 UNK Aliyah Julian null, [facility] 0 12:21:24 Medications Name Sig Start [...] e 137 mcg (0.1 %) nasal spray [place] 1 spray every day by intranas al [...] Not Available Not Available Not Available FreeStyle [place] Lite kit 03/16 completed Not Available Not [...] Smoking Status Never Smoker 12/11/18 Kathy Guallpa [facility], [place] - [facility] 12/11/2018 16:59:59 Do You Have An Advance Directive? No I Gave Her The Form For The Living Will And Health Power Of Network Designer, She Does Want To Be Resuscitated. She Does Not Want To Be Maintained On Chronic Life Support If There Is Little Hope Of A Meaningful Recovery. - 12/18/2018 Information not available 12/18/2018 What Is Your Level Of Alcohol Consumption? None [email or web address] Information not available 10/27/2019 Are You Blind [...] COVID-19 While That Person Was Ill? No [email or web address] Information not available 07/30/2019 Have You Been To An Area Known To Be High Risk For COVID-19? No [email or web address] Information not available 07/30/2019 What Type Of Diet Are You Following? REGULAR Low Sodium Information not available 01/12/2016 Which Illicit Or Recreational Drugs Have You Used? None Information not available 12/11/2018 Do You Or Have You Ever Used E-cigarettes Or Vape? 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 No 12/11/18 Mh Information not available 04/06/2016 Have You Traveled Outside Of The [place] In The Last 21 Days (3 Weeks)? No Information not available 04/06/2016 Do You Have Any Yarsani Beliefs That May Impact Your Health Care Decisions? No Does Not Follow Any Protestant Information not available 12/11/2018 Did You Hurt [...] Not available 04/25 18:44:02 Father Hypertensive disorder [email or web address] Not available 2016 18:44:02 Father Hyperlipidem ia [email or web address] Not available 2016 18:44:02 Paternal Aunt Malignant tumor of cervix [email or web address] Not available 2016 18:44:02 Paternal Aunt Dementia [email or web address] Not a vailable 04/25/2016 18:44:02 Mother Pyelonephrit [...] quadrivalent , PF 1 completed Maile sepulveda [facility] 03/15/2021 12:10:26 COVID-19, mRNA, LNP-S, PF, 30 mcg/0.3 mL dose 1 completed Savana sepulveda [facility] 08/30/2020 10:45:30 COVID-19, mRNA, LNP-S, PF, 30 mcg/0.3 mL dose 1 completed Savana sepulveda [facility] 08/30/2020 10:45:45 COVID-19, mRNA, LNP-S, PF, 30 mcg/0.3 mL dose 1 completed Maile sepulveda [facility] 03/15/2021 11:48:03 Influenza, split virus, trivalent, PF 8 cancelled patient objection Not Available [facility] 05/09/2019 02:33:30 Influenza, MDCK, quadrivalent , PF 8 completed Not Available [facility] 05/09/2019 03:23:32 Influenza, MDCK, quadrivalent , PF 9 completed Not Available [facility] 05/09/2019 03:01:50 Influenza, split virus, quadrivalent , PF 0 completed Savana sepulveda [facility] 01/05/2020 16:31:36 Tdap 3 completed Not Available [facility] 03/07/2020 09:20:47 Past Encounters Encounter ID Performer Location Encounter Start Date Encounter Closed Date Diagnosis/Indication Diagnosis SNOMED-CT Code Diagnosis ICD10 Code Diagnosis Note [id number] Anisha Mcclain [facility] [address] [place] [address] 01/12/2016 10:23:10 01/13/2016 12:09:34 Adult health examination 695744185 Z00.00 Hematology screening test 349748588 Z13.0 Hyperlipid emia screening 794033480 Z13.220 Endocrine/ metabolic screening 761970914 Z13.228 Mixed anxi ety and depressive disorder 912605149 F41.8 Tinnitus 94607583 H93.13 Decreased hearing 038366 001 H91.93 Reduced visual acuity 13 229910 H54.7 [facility] care 31045 5005 Z30.40 [id number] Lv lucas MD, Chandrakant Shipley [facility] [place] [address] [place] [address] 04/05/2016 11:57:03 04/05/2016 13:17:18 Tinnitus 36978511 H93.13 At this time the patient has bilateral tinnitus, most likely due to her bilateral hearing loss. Please see plan as described above. FG Allergic r hinitis caused by pollen 01011533 J30.1 At this time the patient has [...] Sensorineu ral hearing loss of bilateral ears 494684884 H90.3 At this time the patient comes [...] will follow up as needed. FG Dizziness 373705178 R42 At this time the patient also complains of an off balance feeling with walking up and down stairs, but does not have any other problems. We will see if this improves on nasal steroid spray. She had no further questions and will follow up as needed for now. FG [id number] Asha Bradford [facility] [place] [address] [place] [address] 04/05/2016 13:09:55 04/05/2016 13:12:09 Sensorineural hearing loss of bilateral ears 942551122 H90.3 [id number] Eugenio VANEGAS, Margy Valdivia [facility] [place] [address] [place] [address],[address] [facility] [place] [address] 04/06/2016 12:09:16 04/06/2016 13:47:10 Gynecologic examination 89163072 Z01.419 Screening for malignant neoplasm of cervix 799992983 Z12.4 Menorrhagia 250263056 N9 2.0 History of urinary tract infection 4806371202 107 Z87.440 Surveillan ce of contraception 945849938 Z30.40 [id number] Eugenio VANEGAS, Margy Valdivia [facility] [employer] [place] POS [address] [place] [address],[address] [place] [address] 04/25/2016 17:48:13 04/25/2016 19:53:53 Menorrhagia 802735097 N92.0 Blood in urine 66515460 R31.9 [id number] Rhianna VANEGAS, Georgi Costa [facility] [address],[facility] [place] [address] 05/08/2016 10:01:31 05/08/2016 12:08:23 Migraine 66571116 G43.909 Mixed anxi ety and depressive disorder 803452396 F41.8 Carpal davonte simon syndrome 18724018 G56.00 Insomnia 443918012 G47.0 0 Hand pain 10572586 M79.6 42 Vitamin D deficiency 347 52331 E55.9 [id number] Chuck VANEGAS, [facility] POS [address] [place] [address] 06/14/2016 12:22:40 06/14/2016 14:22:12 Microscopic hematuria 041052646 R31.21 she had 2-5 rbc on last ua done 04/26.17-has had full workup done in the past by another urologist and was negative but it was a while agozahida send urine for c/s and cytology-f ollow up for cystoscopy in office Renal colic 9268428 N23 she is having bilateral flank pain-previ ous urologist had checked a renal us but this may not strip 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-jc l do ct scan for stone search prior to cystoscopy [id number] Rhianna VANEGAS, Georgi Costa [facility] [address],[place] [address] 06/18/2016 10:33:06 06/18/2016 12:04:21 Mixed anxiety and depressive disorder 603243690 F41.8 [id number] Chuck VANEGAS, [facility] POS [address] [place] [address] 06/28/2016 12:09:59 06/28/2016 12:45:15 Blood in urine 57916993 R31.9 her cystoscopy shows mild chronic bullous cystitis and a diverticul um, mild grade 1 trabeculat ions-will start on suppressiv e dose macrodanti n for one monthfollo w up in 3mos [id number] Donnell VANEGAS, Luis Soliz [facility] POS [address] [place] [address] 06/29/2016 11:24:40 07/13/2016 10:46:48 Hand pain 12920386 M79.643 Carpal davonte simon syndrome 29070493 G56.01 G56.02 [id number] Donnell VANEGAS, Luis Soliz [facility] [place] POS [address] [facility] [place] [address] 07/13/2016 11:07:42 07/13/2016 13:24:50 Pain in wrist 61134649 M25.531 Hand pain 09724223 M79.6 43 Carpal davonte simon syndrome 37072583 G56.01 G56.02 [id number] Rhianna VANEGAS, Georgi Costa [facility] [address],[place] [address] 07/16/2016 10:58:41 07/16/2016 11:42:57 Mixed anxiety and depressive disorder 325538486 F41.8 [id number] Donnell VANEGAS, Luis Reynaoli [facility] [place] [address] [place] [address] 08/13/2016 11:24:07 08/13/2016 12:23:07 Hand pain 55959656 M79.641 Pain in wrist 96448868 M 25.531 Carpal davonte simon syndrome 11841111 G56.01 G56.02 [id number] Donnell VANEGAS, [facility] [place] [address] [place] [address] 09/20/2016 11:45:56 09/20/2016 14:44:21 Pain in wrist 17079856 M25.531 M25.532 Hand pain 69157704 M79.6 41 Carpal davonte simon syndrome 93008274 G56.01 G56.02 [id number] Chuck VANEGAS, [facility] [place] POS [address] [facility] [place] [address] 10/04/2016 11:54:33 10/04/2016 12:31:12 Blood in urine 41381104 R31.9 she had history of microhemat uriawas given 3mos of suppressiv e dose abxhas not seen any blood in urinewill check ua/culture Bladder mu scle dysfunction - overactive 932508843 N32.81 she goes to bathroom every 2 hours during day and 2 times at night, occ urge incontinen cetrial of myrbetriq Female str ess incontinence 45623589 N39.3 -she does not require pads for the problemonl y occurs occasional ly with sneezingdi scussed treatment options- e will observe for now [id number] Donnell VANEGAS, Luis Soliz [facility] [place] [address] [place] [address] 10/08/2016 09:47:26 10/08/2016 10:46:23 Pain in wrist 61747346 M25.531 M25.532 Hand pain 92925903 M79.6 41 Carpal davonte simon syndrome 64584720 G56.01 G56.02 [id number] Donnell VANEGAS, Luis Soliz [facility] [address] [facility] [facility] [place] [address] 11/09/2016 10:50:45 11/09/2016 12:33:48 Pain in wrist 07788442 M25.531 M25.532 Neck pain 22117925 M54.2 Hand pain 04310362 M79.6 41 Carpal davonte simon syndrome 89093080 G56.01 G56.02 [id number] Rhianna VANEGAS, Georgi [facility] [address],[place] [address] 11/21/2016 10:22:19 12/11/2016 16:16:59 Low back pain 993398900 M54.5 Snoring 09166734 R06.83 [id number] Rhianna VANEGAS, Georgi [facility] [address],[place] [address] 01/10/2017 16:20:44 01/10/2017 17:19:55 Pain in left knee 5649596564 14601 M25.562 Depressive disorder 3548 9007 F32.89 Fatigue 37113380 R53.83 [id number] Chuck VANEGAS, [facility] [address] [place] [address] 01/31/2017 11:27:16 01/31/2017 12:47:19 Bladder muscle dysfunction - overactive 489677988 N32.81 she goes to bathroom every 2 hours during day and 2 times at night, occ urge incontinen cemyrbetri q didn't help and wasn't covered Female str ess incontinence 73206686 N39.3 she is more bothered by it latelywoul d like to try physical therapyref erral to at [facility] given [id number] Tete Brian DO [facility]ie [facility] [address] [place] [address] 03/08/2017 11:55:53 03/13/2017 00:11:33 Fatigue 76926475 R53.83 --concerns for fatigue and insomnia. Have discussed sleep hygeine techniques with patient and reviewed the sleep study with her. Discussed weight loss and controllin g nasal congestion .--Pt will attempt these and follow up in the next 3 months. Allergic rhinitis 304377 04 J30.9 --nasal congestion Obesity 673526220 E66.9 --discusse d keeping track of her calories and aiming to eat about 500 calories less then what she normally eats.--Pt should f/u in 3 months on weight loss. [id number] Tete Brian DO Maddie [facility] [address] [place] [address] 06/12/2017 10:00:03 06/12/2017 10:41:36 Active or passive immunization 336432548 Z23 Fatigue 30663851 R53.83 --cont use of breathe right strips and use nasal steroid. Allergic rhinitis 725839 04 J30.9 --nasal congestion continued. Increase cetirizine to 10 mg daily, but go back to 5 mg if she feels overly fatigued. Cont fluticason e and also start azelastine daily. Gastroesop hageal reflux disease 675413422 K21.9 [id number] Tete Brian DO [facility] AM#[address] [place] [address] 08/12/2017 10:54:36 08/12/2017 11:48:10 Obesity 581447943 E66.9 --discusse d weight loss and diet again Insomnia 472009603 G47.0 0 --pt instructed to take amitriptyl ine daily.--Co unselled on possible side effects. RTC if insomnia worsens Neck pain 35975026 M54.2 --negative adsons test, negative spurling sign. Muscle spasm in b/l neck.--Giv en exercises for neck. OTC tylenol and ibuprofen. RTC as needed. Migraine 69959695 G43.90 9 [id number] Tete Brian DO [facility] AM#[address] [place] [address] 02/11/2018 10:03:22 02/11/2018 10:50:04 Administration of influenza vaccine 03295957 Z23 Migraine 80652112 G43.90 9 --fioricet , amitriptyl ine and topiramate Insomnia 855563105 G47.0 0 --pt instructed to take amitriptyl ine daily.--Co unselled on possible side effects. RTC if insomnia worsens Environmental allergy 42 2690180 T78.49XA [id number] Shade VANEGAS, Nitin [facility] AM#[address] [place] [address] 04/02/2018 14:24:14 04/02/2018 15:10:58 Adult health examination 114459162 Z00.00 Migraine 16493211 G43.90 9 [id number] Timbo Mckeon DO [facility]#1 [address] [facility],[address] [place] [address] 12/11/2018 16:42:55 12/11/2018 17:56:44 Bladder muscle dysfunction - overactive 702086333 N32.81 she has urinary incontinen ce and requesting a refill of the detrol, this has helped her in the past Body mass index 30+ - obesity 691298604 Z68.39 The patient's current weight is 209# with a height of 5' 1.25 and a correspond ing BMI (Body Mass Index) of 39.2. The medical definition of Obesity is a BMI greater than 30. Your Stephens Body Weight is approximat malinda about 116#. [...] migraine prophylaxi s and weight loss. Migraine 76947775 G43.90 9 see the above plan [id number] Timbo Mckeon DO [facility] [address] [facility],[address] [place] [address] 12/18/2018 09:57:19 12/18/2018 11:37:10 Adult health examination 700401302 Z00.00 Female Complete Physical Exam: I discussed [...] exercise, diet. Achieve/ma intain ideal body weight. Stephens body weight is about 116 pounds,Adv anced directives : I gave the patient the form for LIVING WILL and health power of patent prosecution attorney from the [place] [employer], the patient does want to be resuscitat ed but the patient does not want to be maintained on chronic life support if there is little hope of meaningful recovery. Active or passive immunization 684730526 Z23 Flu vaccine today, She is up to date with the Tdap Body mass index 30+ - obesity 152604575 Z68.38 The patient's current weight is 206.75# with a height of 5' 1.25 and a correspond ing BMI (Body Mass Index) of 38.7. The medical definition of Obesity is a BMI greater than 30. Your Stephens Body Weight is approximat malinda about 116#. A reduced calorie, reduced carbohydra te weight reduction diet as well as increased activity.. She has lost about 3# since the last visit Hyperhidro sis of axilla 254979401 L74.510 Drysol Jessie.ly to axilla once daily at first and then about three times per week, do not apply to fresh shaven skin. Elevated blood-pressure reading without diagnosis of hypertension 217205503 R03.0 I encouraged the patient to check the blood pressure and log the results. Please follow a reduced sodium diet and maintain/a chieve ideal body weight. [id number] Malka VANEGAS, Cali Carter [facility] - MANAGER OF FINANCIAL PLANNING [place] [address] [place] [address] 07/30/2019 10:48:16 07/30/2019 12:44:41 test positive 659109947 Z32.01 Mild hyper emesis gravidarum 07965408 O21.0 Reviewed and hyperemesi s with patient. Reviewed diet at length. Questions answered. Recommend consider hold PNV. Start vitamin B6, unisom. Ob dating u/s in 1 week. f/u 1wk. Amenorrhea 66387029 N91. 2 Reviewed findings, positive test. [id number] Malka VANEGAS, Cali Carter [facility] - MANAGER OF FINANCIAL PLANNING [facility] [address] [place] [address] 08/04/2019 11:31:16 08/04/2019 13:34:46 Disorder of menstruation 067711150 N92.6 Ob u/s reviewed, show viable iup consistent with LMP dating. Reviewed with patient. Routine an tenatal care 957704612 Z34.81 Z3A.08 Venereal d isease screening 053359459 Z11.3 Advanced m aternal age 522831450 O09.899 [id number] Malka VANEGAS, [facility] - MANAGER OF FINANCIAL PLANNING [place] [facility] [address] [place] [address] 7 08/18/2019 11:25:44 08/18/2019 13:21:34 Advanced maternal age 166210543 O09.899 Routine an tenatal care 767114420 Z34.81 Z3A.08 Mild hyper emesis gravidarum 75202392 O21.0 mostly resolved [id number] Malka VANEGAS, [facility] POS [address] [place] [address] 7 09/22/2019 13:57:14 09/22/2019 14:40:34 Multigravida of advanced maternal age 480626860 O09.522 Z3A.15 [id number] Malka VANEGAS, [facility] POS [address] [place] [address] 7 10/20/2019 13:50:29 10/20/2019 15:17:10 Multigravida of advanced maternal age 631693138 O09.523 Z3A.19 [id number] Primitivo VANEGAS, Dickson [facility] - [facility] INE [facility] POS [address] [place] [address] 10/27/2019 10:57:43 10/27/2019 14:41:15 Advanced maternal age 452332443 O09.899 expo sure to alcohol 455255198 O35.4XX9 expo sure to drug 129725806 O35.5XX9 Tolterodin e exposure [id number] Malka VANEGAS, [facility] POS [address] [place] [address] 7 11/24/2019 14:02:44 11/24/2019 15:47:27 Advanced maternal age 555906489 O09.899 Z3A.24 [id number] Malka VANEGAS, [facility] - MANAGER OF FINANCIAL PLANNING [place] POS [address] [place] [address] 7 12/08/2019 13:27:12 12/08/2019 15:22:20 Gestational diabetes mellitus 52301718 O24.410 [id number] [facility] [place] POS [address] [place] [address] 12/17/2019 17:23:54 12/17/2019 17:24:51 [id number] Dickson Langford MD [facility] POS [address] [place] [address] 12/22/2019 08:47:44 12/22/2019 11:38:14 Glucose tolerance test outside reference range 796495316 R73.09 Gestationa l diabetes mellitus 76076094 O24.410 [id number] Malka VANEGAS, Cali [facility] - MANAGER OF FINANCIAL PLANNING [place] [facility] [address] [place] [address] 12/22/2019 15:50:31 12/23/2019 10:14:48 Gestational diabetes mellitus 95310906 O24.410 Advanced m aternal age 292276219 O09.899 Z3A.24 High risk care 678305976 O09.93 [id number] Malka VANEGAS, Cali Carter [facility] - MANAGER OF FINANCIAL PLANNING [place] [address] [place] [address] 01/05/2020 15:26:25 01/06/2020 12:30:32 Advanced maternal age 443428547 O09.899 Z3A.24 Gestationa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 release. Pt has been feeling better. No other c/o. labs today. [place] test reviewed. Patient would like to proceed. N/V much improved. PTL signs and symptoms reviewed. f/u 5wk. Flowsheet Date 09/22/2019 Jackson Score Blood Edema Fundus Height Fundus Units Glucose Ketones Leukocytes Nitrite Labor Signs Protein Cervic Dilation Cervic Effacement Cervic Station trace none neg Type Weight in lbs Pre/Post Dialysis Refused With clothes 205.086921302256 BP Diastolic BP Location Tested BP Systolic BP Type 80 L arm 132 sitting Fetus Heart Rate Present A 150 Fetus Movement Comments ob/fu - nausea has decreased . c/o pelvic pain when standing or shifting side to side in bed. Reviewed [place] neg. No other c/o. PTL signs and symptoms reviewed. Sched [facility] u/s. f/u 4wk. Flowsheet Date 10/20/2019 Jackson Score Blood Edema Fundus Height Fundus Units Glucose Ketones Leukocytes Nitrite Labor Signs Protein Cervic Dilation Cervic Effacement Cervic Station 20 none neg Type Weight in lbs Pre/Post Dialysis Refused With clothes 208.10028330126 BP Diastolic BP Location Tested BP Systolic BP Type 78 R arm 120 sitting Fetus Heart Rate Present A 150 Fetus Movement A Yes Comments ob/fu - MFM scheduled on 10/26. c/o continues to have nausea, frequent crackling in her right ear, nasal congestion, mild nose bleeds. No other c/o. Exam neg, TM neg. recommend saline mist. [facility] u/s sched 10/26. PTL signs and [...] in lbs Pre/Post Dialysis Refused With clothes 206.304569423461 BP Diastolic BP Location Tested BP Systolic BP Type 72 L arm 124 sitting Fetus Heart Rate Present A 150 Fetus Movement A Yes Comments Glucose and cbc labs today. Ingrown hair has been having some discomfort. Exam neg. 1hr gluc today. Reviewed [facility] u/s. PTL signs and symptoms reviewed. f/u 2wk. Flowsheet Date 12/08/2019 Jackson Score Blood Edema Fundus Height Fundus Units Glucose Ketones Leukocytes Nitrite Labor Signs Protein Cervic Dilation Cervic Effacement Cervic Station none neg Type Weight in lbs Pre/Post Dialysis Refused With clothes 208.321774869058 BP Diastolic BP Location Tested BP Systolic BP Type 70 L arm 118 sitting Fetus Heart Rate Present A 150 Fetus Movement A Yes Comments ob fu. No complains. Reviewe d 3hr gtt pos. refer to [facility], dietitian. Send glucometer, chem strips, lancets. [...] in lbs Pre/Post Dialysis Refused With clothes 207.458728362389 BP Diastolic BP Location Tested BP Systolic BP Type 72 L arm 124 sitting Fetus Heart Rate Present A 145 Fetus Movement A Yes Comments Pt c/o pain on hips when sle eping. Occ tightening muscle on ankle and foot. Denies other c/o. MFM u/s reviewed. BS fasting intermitt elevated, adjusting diet per psychology instructor. PTL signs and symptoms reviewed. f/u 2wk. Flowsheet Date 01/05/2020 Jackson Score Blood Edema Fundus Height Fundus Units Glucose Ketones Leukocytes Nitrite Labor Signs Protein Cervic Dilation Cervic Effacement Cervic Station 32 none neg Type Weight in lbs Pre/Post Dialysis Refused With clothes 205.162096895774 BP Diastolic BP Location Tested BP Systolic [...] in lbs Pre/Post Dialysis Refused With clothes 205.379485885578 BP Diastolic BP Location Tested BP Systolic BP Type 72 L arm 112 sitting Fetus Heart Rate Present A 135 Fetus Movement A Yes Comments Ob f/u, c/o still having leg cramps. States had episode of dizziness resolved after Juice. BS has been better. NST reactive. [facility] u/s schedule for next . PTL [...] in lbs Pre/Post Dialysis Refused With clothes 205.351844531252 BP Diastolic BP Location Tested BP Systolic [...] in lbs Pre/Post Dialysis Refused With clothes 204.411203649732 BP Diastolic BP Location Tested BP Systolic [...] in lbs Pre/Post Dialysis Refused With clothes 205.539923276509 BP Diastolic BP Location Tested BP Systolic [...] GBS today. f/u 1wk. Flowsheet Date 02/16/2020 Jackosn Score Blood Edema Fundus Height Fundus Units [...] in lbs Pre/Post Dialysis Refused With clothes 205.005513267252 BP Diastolic BP Location Tested BP Systolic [...] in lbs Pre/Post Dialysis Refused With clothes 201.513350648473 BP Diastolic BP Location Tested BP Systolic BP Type 80 L arm 120 sitting Fetus Heart Rate Present A 145 Fetus Movement A Yes Comments ob/fu - Pt was at [facility] L[facility] on Saturday due to having [...] in lbs Pre/Post Dialysis Refused With clothes 192.400997599021 BP Diastolic BP Location Tested BP Systolic [...] 09/22/2019 Toxoplasmosis precautions (cats/raw meat) [email or web address] 09/22/2019 Protestant [email or web address] 09/22/2019 Hospital choice [email or web address] 09/22/2019 Blood [...]
== END 2024-06-05 13:44 | disposition home or self-care (01) ==
LOC: HO.HOP 13:42
PROVIDERS: PCP Internal Medicine; Visit Provider Clinical Nurse Specialist Psychiatric/Mental Health
DX: F41.1 Generalized anxiety disorder (principal); F33.1 Major depressive disorder, recurrent, moderate; F90.2 Attention-deficit hyperactivity disorder, combined type
CPT/HCPCS: 99214

== ENCOUNTER → 2024-06-05 13:42 | Outpatient (BNVA) | payer OTHER, SELFPAY | PROVIDERS: PCP Internal Medicine; Visit Provider Clinical Nurse Specialist Psychiatric/Mental Health | DX: F41.1 Generalized anxiety disorder (principal); F33.1 Major depressive disorder, recurrent, moderate; F90.2 Attention-deficit hyperactivity disorder, combined type; Z71.89 Other specified counseling | CPT/HCPCS: 99212 ==

== ENCOUNTER 2024-06-09 09:26 | Outpatient (AMB) | payer OTHER, SELFPAY ==
--- NOTE | 2024-06-09 09:31 | MHC.OFFVIS ---
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 The patient had a retroperitoneal ultrasound in 04/14 with a by Urology and a left complex ovarian cyst was identified, the patient is doing well with no complaints Last Pap/HPV was negative in 06/14 Last Mammogram was BI-RADS 1 in 04/14 [facility] Medical History Nausea and vomiting in adult Acute respiratory disease Major depressive disorder, recurrent, severe with psychotic features Decreased hearing Tinnitus Reduced visual acuity Pyelonephritis (03/22/15) (08/04/19) Obesity (12/12/18) Migraine Menorrhagia Irritable bowel syndrome Insomnia Hiatal hernia Hemorrhoids Gastroesophageal reflux disease Fracture of hand (04/22/09) Female stress incontinence Blood in urine Severe carpal tunnel syndrome of right wrist Medical clearance for psychiatric admission Hypertriglyceridemia Positive Tinel's sign Positive Phalen maneuver Cervicalgia HTN (hypertension) Decreased hearing of both ears Environmental and seasonal allergies Tinnitus of both ears Knee pain Excessive daytime sleepiness Loud snoring Vitamin D deficiency Impaired fasting glucose Mixed dyslipidemia Morbid obesity Hiatal hernia with gastroesophageal reflux Family history of premature CAD Annual visit for general adult medical examination with abnormal findings Surgical History H/O endoscopy H/O wisdom tooth extraction Family History Father Substance use disorder Mental health disorder Alcoholism Myocardial infarction acute, Onset Age: 56 Depression Maternal Uncle Testicular cancer Social History Household Members: Family Household Members Other:: and 2 children Housing: House Do you presently have visiting nurse or other home services: No Alcohol intake: current Alcohol intake frequency: holidays/special occasions only Patient Tobacco Use Status: Never used Tobacco e-Cigarette/Vaping Use: Never Used Substance Use Type: Marijuana service: No Current occupational status: unemployed and other 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 Sexual orientation: Straight/Heterosexual Gender identity: Female Cognitive needs: No Hearing needs: No Vision needs: Yes Female Reproductive History Menstrual Date of last pap smear: 05/29/22 Date of Mammogram: 04/13/24 Review of Systems Const All systems reviewed & are unremarkable except as noted in HPI and below Card Reports as per HPI Resp Reports as per HPI GI Reports as per HPI and Reports no additional complaints Reports as per HPI Physical Exam Vital Signs: Last Vital Signs BP 130/86 06/09/24 09:44 BMI result Body Mass Index 47.2 Const General: cooperative, healthy appearing and comfortable Chest Chest palpation & inspection: normal inspection of the chest and normal palpation of entire chest wall Breast/axilla inspection: normal inspection of the breasts and normal inspection of the axillae Breast/axilla palpation: normal palpation of the breasts, normal palpation of the axillae and no axillary lymphadenopathy Resp Effort & Inspection: normal respiratory effort Auscultation: clear to auscultation bilaterally Percussion: percussion normal Cardio Palpation: normal PMI Rate: regular rate Rhythm: regular rhythm Heart sounds: no murmurs and no rubs Peripheral pulses: Peripheral pulses 2+ throughout GI Inspection: Yes normal to inspection Palpation (GI): Soft to palpation, nontender, no guarding, not rigid and No hepatosplenomegaly present Percussion: Yes normal to percussion Auscultation: normal bowel sounds Rectal Exam - Female: deferred General: Yes bladder normal to palpation External Female Exam: No lesion Speculum Exam - Vagina: normal appearance of the vagina, normal palpation, normal vaginal discharge and not erythematous Speculum Exam - Cervix: normal appearance of the cervix, normal palpation and Other cervical findings present (IUD string seen) Bimanual exam- vagina & uterus: normal bimanual exam, normal palpation, uterine size normal, bladder normal to palpation, consistency normal and normal palpation Bimanual Exam- Adnexa, other: normal adnexae, no masses and no tenderness Assessment & Plan Assessment & Plan (1) Well woman exam: Code(s): Z01.419 - Encounter for gynecological examination (general) (routine) without abnormal findings Category: Medical Plan: Cotesting not indicated this year. Instructions given the patient to schedule next screening Mammogram in 04/15 Counseled the patient about the recommended dietary allowance of 1000 mg of Calcium & 600 IU of vitamin D. The patient was instructed to perform monthly self-breast exams and to schedule an annual exam in a year; All questions answered and the patient verbalized understanding. Instructed the patient to schedule annual exam in a year (2) Complex ovarian cyst: Code(s): N83.299 - Other ovarian cyst, unspecified side Category: Medical Plan: Discussed with the patient the complex ovarian cyst by [place] peritoneal ultrasound. Discussed with the patient the Ultrasound findings, the main limitation of transvaginal ultrasonography alone as a diagnostic tool to distinguish benign from malignant masses relates to its lack of specificity and low positive predictive value for cancer. The differential diagnosis discussed with the patient includes the following but not limited to: benign and malignant gynecological and non-gynecological causes. Since retroperitoneal ultrasound was done 8 weeks ago, will order repeat ultrasound to follow-up on the complex ovarian cyst. Instructions given the patient to schedule an ultrasound and a follow-up appointment within 2 weeks. All questions were answered & the patient verbalized understanding and agreed with the plan. Orders: Orders US pelvic and transvaginal 3 Months N83.299 - Other ovarian cyst, unspecified side Coding Level of Care Code Est Pt Prev Care 40-64y(83496) Diagnoses Well woman exam Z01.419 Complex ovarian cyst N83.299
[2024-06-09 09:44] VITALS: BP 130/86; BMI 47.2
--- OUTSIDE RECORDS SUMMARY | 2024-06-09 10:12 | XMS_ITS | Continuity of Care Document ---
Author Name [facility] Organization [facility] Care Team Providers Care Flyer Builder Name Role Phone [facility] Unavailable Unavailable Medications Combined list of outpatient [...] CITRON PHARMA L, 500 ea. BOTTLE Active [id number] 4 2023 10 Pharmac y Data Transac tion Service Facilit y Benzonatate ([employer]) 100 CAPSULE in 1 BOTTLE Active [id number] 06/26/19 2 4 2023 60 Pharmac y Data Transac tion Service Facilit y DIAZEPAM (DIAZEPAM), 5MG, TABLET, ORAL, IVAX PHARMACEUT, 100 ea. BOTTLE Active [id number] 4 2023 10 Pharmac y Data Transac tion Service Facilit y DULOXETINE HCL (DULOXETINE HCL), 60 MG, CAPSULE DR, ORAL, BRECKENRIDG E, 90 ea. BOTTLE Active [id number] 4 2023 90 Pharmac y Data Transac tion Service Facilit y DULOXETINE HCL (DULOXETINE HCL), 60 MG, CAPSULE DR, ORAL, BRECKENRIDG E, 90 ea. BOTTLE Active [id number] 4 2023 90 Pharmac y Data Transac tion Service Facilit y LIDOCAINE (lidocaine) , 5 %, ADH. PATCH, TOPICAL, AMNEAL PHARMACE, 30 ea. BOX Active [id number] 4 2023 30 Pharmac y Data Transac tion Service Facilit y LISINOPRIL (lisinopril ), 10 MG, TABLET, ORAL, LUPIN PHARMACEU, 1000 ea. BOTTLE Active [id number] 4 2023 30 Pharmac y Data Transac tion Service Facilit y LISINOPRIL (lisinopril ), 10 MG, TABLET, ORAL, LUPIN PHARMACEU, 1000 ea. BOTTLE Active [id number] 4 2023 30 Pharmac y Data Transac tion Service Facilit y LISINOPRIL (LISINOPRIL ), 5MG, TABLET, ORAL, LUPIN PHARMACEU, 1000 ea. BOTTLE Active [id number] 3 2022 30 Pharmac y Data Transac tion Service Facilit y LISINOPRIL (LISINOPRIL ), 5MG, TABLET, ORAL, LUPIN PHARMACEU, 1000 ea. BOTTLE Active [id number] 4 2023 30 Pharmac y Data Transac tion Service Facilit y LISINOPRIL- HCTZ (LISINOPRIL /HYDROCHLOR OTHIAZIDE), 10-12.5MG, TABLET, ORAL, LUPIN PHARMACEU, 100 ea. BOTTLE Active [id number] 4 2023 30 Pharmac y Data Transac tion Service Facilit y LISINOPRIL- HCTZ (LISINOPRIL /HYDROCHLOR OTHIAZIDE), 10-12.5MG, TABLET, ORAL, LUPIN PHARMACEU, 100 ea. BOTTLE Active [id number] 4 2023 30 Pharmac y Data Transac tion Service Facilit y SULFAMETHOX AZOLE-TRIME THOPRIM (sulfametho xazole/trim ethoprim), 800-160 MG, TABLET, ORAL, RISING PHARM, 100 ea. BOTTLE Active [id number] 4 2023 14 Pharmac y Data Transac tion Service Facilit y Allergies, Adverse Reactions, Alerts Combined list of allergies from Department of Defense and Veterans Affairs facilities. It does not include entries that were removed or entered in error. 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 Propensity to adverse reaction (finding) active 0 [facility] Adhesives Allergy to substance Active One or More A Facilities WELDING MACHINE FEEDER HYDROCODONE Drug allergy (disorder) active 0 [facility] Latex Drug allergy Active One or More A Facilities WELDING MACHINE FEEDER LATEX GLOVE Propensity to adverse reactions to drug (finding) active 0 [facility] VICODIN Propensity to adverse reactions to drug (finding) active 0 [facility] Immunizations Combined list of available immunizations from the Department of Defense and Veterans Affairs facilities. 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 Status Comments Source COVID-19, mRNA, LNP-S, PF, 30 mcg/0.3 mL dose 2020 [place] (P[place] Not Given COVID-19, mRNA, LNP-S, PF, 30 mcg/0.3 mL dose DoD COVID-19, mRNA, LNP-S, PF, 30 mcg/0.3 mL dose 2020 [place] [place] (PFR) Not Given COVID-19, mRNA, LNP-S, PF, 30 mcg/0.3 mL dose DoD COVID-19, mRNA, LNP-S, PF, 30 mcg/0.3 mL dose 2020 [employer] [place] (PFR) Not Given COVID-19, mRNA, LNP-S, PF, 30 mcg/0.3 mL dose DoD Vital Signs Combined list of inpatient and outpatient Vital Signs from Department of Defense and Veterans Affairs, ranging from 12 months to all on record, depending upon the facility. 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 Assessment Date/Time Source Assessment Type Assessment Skill Assessment Score Assessment Details No data available for this section
== END 2024-06-09 10:07 | disposition home or self-care (01) ==
PROVIDERS: PCP Internal Medicine; Visit Provider Obstetrics & Gynecology
DX: Z01.419 Encounter for gynecological examination (general) (routine) without abnormal findings (principal); N83.292 Other ovarian cyst, left side
CPT/HCPCS: 99396; 99459

== ENCOUNTER → 2024-06-09 09:26 | Outpatient (BNVA) | payer OTHER, SELFPAY | PROVIDERS: PCP Internal Medicine; Visit Provider Obstetrics & Gynecology | DX: Z01.419 Encounter for gynecological examination (general) (routine) without abnormal findings (principal); N83.299 Other ovarian cyst, unspecified side | CPT/HCPCS: 99396; 99459 ==

== ENCOUNTER 2024-06-10 11:33 | Day surgery (SDC) | payer OTHER, SELFPAY ==
[2024-06-10 12:29] VITALS: BP 137/80; PULSE 112; RESP 16; TEMP 36.6; O2SAT 97; BMI 47.2
--- NOTE | 2024-06-10 13:25 | MHC.SHP ---
Pre-Procedural Eval Section A - 24 Hr Update-Section A only Date of Service: 06/10/24 The patient is an INPATIENT: No Changes since office visit: No Cold of Flu in the past 2 weeks, No New Medical Problems, No Changes in Medication and No Patient answered all questions The patient has been examined within 24 hours of the surgical procedure. The History & Physical has been completed within 30 days and I have reviewed it.: Yes Section B - Complete if H&P > 30 days Chief Complaint: Carpal tunnel syndrome, right upper limb Allergies: Allergies Allergy/AdvReac Type Severity Reaction Status Date / Time latex AdvReac Mild hives Verified 06/10/24 12:28 Plan Diagnosis/Plan: Unchanged I have reviewed the history and physical and performed a pertinent physical examination on my patient. No changes have occurred unless specified. Time Spent With Patient Time: Total time managing care of this patient today ____ minutes.
--- NOTE | 2024-06-10 13:26 | W.PM.OPN ---
Operative Note Operative Note Date of Service: 06/10/24 Narrative: Preop diagnosis: 1. Right Carpal tunnel syndrome Postop diagnosis: same Procedure: 1. Right Carpal tunnel release Surgeon: Kylie Barnard MD Merchandise Flow Associate: Earle LAZO Anesthesia: local block using 1% lidocaine with epinephrine Findings: Thickened transverse carpal ligament. EBL: Less than 5 mL Specimens: None Complications: None Disposition: Brought to recovery room in stable condition Plan: Follow-up for 10-14 days for wound check and suture removal Indications: The patient is 43 years old, with right carpal tunnel syndrome that has been unresponsive to nonoperative management. The risks and benefits of operative treatment including but not limited to risk of damage to blood vessels, nerves, tendons, infection, persistent pain, persistent symptoms, or possible need for additional surgery were discussed with the patient and the patient wishes to proceed with surgery. Procedure: Once consent was obtained a local block was performed using a combination of 1% lidocaine with epinephrine. The patient was then brought back to the operating suite and placed on the operative table in supine position. The right upper extremity was prepped and draped in a standard surgical fashion. Once assured that we had a good block, a 2.0 cm longitudinal incision was made centered over the carpal tunnel. The incision was made through the skin to the subcutaneous tissues using a #15 blade. Dissection was made down to the level of the transverse carpal ligament with care being taken to protect the palmar cutaneous nerve. Once the transverse carpal ligament was clearly visualized, a longitudinal incision was made in the transverse carpal ligament 1st using a #15 blade, then using tenotomy scissors under direct visualization. Care was taken to look for and protect the motor branch of the median nerve when seen in this area. Once satisfied with our carpal tunnel release the wound was copiously irrigated with normal saline and hemostasis was obtained with a brief period of local pressure. The skin edges were reapproximated with some 5.0 nylon suture material and a sterile dressing was applied. The patient appears to have tolerated the procedure well and with no complications. All digits were well vascularized at the conclusion of the case.
[2024-06-10 14:08] VITALS: BP 140/83; PULSE 92; O2SAT 100
== END 2024-06-10 14:43 | disposition home or self-care (01) ==
PROVIDERS: PCP Internal Medicine; Visit Provider Orthopaedic Surgery
PROC: (CPT 64721; principal; 2024-06-10 13:30)
DX: G56.01 Carpal tunnel syndrome, right upper limb (principal); R20.0 Anesthesia of skin; R20.2 Paresthesia of skin; I10 Essential (primary) hypertension; R73.01 Impaired fasting glucose; E55.9 Vitamin D deficiency, unspecified; E78.2 Mixed hyperlipidemia; F33.2 Major depressive disorder, recurrent severe without psychotic features; F41.9 Anxiety disorder, unspecified; E66.01 Morbid (severe) obesity due to excess calories; Z68.42 Body mass index [BMI] 45.0-49.9, adult; Z91.040 Latex allergy status; Z56.0 Unemployment, unspecified
CPT/HCPCS: 64721; J0171; J2003

== ENCOUNTER → 2024-06-10 11:33 | Outpatient (BNV) | payer OTHER, SELFPAY | PROVIDERS: PCP Internal Medicine; Visit Provider Orthopaedic Surgery | DX: G56.01 Carpal tunnel syndrome, right upper limb (principal) | CPT/HCPCS: 64721 ==

== ENCOUNTER 2024-06-24 13:51 | Outpatient (AMB) | payer OTHER, SELFPAY ==
--- NOTE | 2024-06-24 13:53 | MHC.OFFVIS ---
Vital Signs 06/24/24 14:06 Height 5 ft 1 in Weight 250 lb BMI 47.2 Handedness Right Intake Visit Reasons: PO RT CTR 06/10/24 AR Intake Note: Alice is a 43 year old right hand dominant female who presents today for her first post operative appointment s/p Right Carpal Tunnel Release DOS: w/ Dr Barnard. Patient reports she has been able to mandi without having to stop. She states mild numbness and tingling still but not as often as before surgery. Pain comes and goes. She denies any drainage or injury to her incision site however there is a pocket of pus that was drained at the time of her suture removal. Allergies latex Adverse Reaction (Mild, Verified 07/01/24 13:50) hives HPI HPI PO RT CTR 06/10/24 AR: Details: Alice is a 43 year old right hand dominant female who presents today for her first post operative appointment s/p Right Carpal Tunnel Release DOS: w/ Dr Barnard. Patient reports she has been able to mandi without having to stop. She states mild numbness and tingling still but not as often as before surgery. Pain comes and goes. She denies any drainage or injury to her incision site however there is a pocket of pus that was drained at the time of her suture removal. [facility] Medical History Nausea and vomiting in adult Acute respiratory disease Major depressive disorder, recurrent, severe with psychotic features Decreased hearing Tinnitus Reduced visual acuity Pyelonephritis (03/22/15) (08/04/19) Obesity (12/12/18) Migraine Menorrhagia Irritable bowel syndrome Insomnia Hiatal hernia Hemorrhoids Gastroesophageal reflux disease Fracture of hand (04/22/09) Female stress incontinence Blood in urine Severe carpal tunnel syndrome of right wrist Medical clearance for psychiatric admission Hypertriglyceridemia Positive Tinel's sign Positive Phalen maneuver Cervicalgia HTN (hypertension) Decreased hearing of both ears Environmental and seasonal allergies Tinnitus of both ears Knee pain Excessive daytime sleepiness Loud snoring Vitamin D deficiency Impaired fasting glucose Mixed dyslipidemia Morbid obesity Hiatal hernia with gastroesophageal reflux Family history of premature CAD Annual visit for general adult medical examination with abnormal findings Surgical History H/O endoscopy H/O wisdom tooth extraction Family History Father Substance use disorder Mental health disorder Alcoholism Myocardial infarction acute, Onset Age: 55 Depression Maternal Uncle Testicular cancer Social History Household Members: Family Household Members Other:: and 2 children Housing: House Do you presently have visiting nurse or other home services: No Alcohol intake: current Alcohol intake frequency: holidays/special occasions only Patient Tobacco Use Status: Never used Tobacco e-Cigarette/Vaping Use: Never Used Substance Use Type: Marijuana service: No Current occupational status: unemployed and other 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 Good APB muscle firing and good finger cross. Vascular: Capillary refill brisk. ROM: Patient can make a fist and extend all their digits. Skin: Well-approximated and well-healing incision site noted on the volar right wrist However, there is noted to be scant amounts of purulence and erythema surrounding 1 of the suture sites General: No ecchymosis. No erythema or evidence of infection. Assessment & Plan Assessment & Plan (1) Severe carpal tunnel syndrome of right wrist: Code(s): G56.01 - Carpal tunnel syndrome, right upper limb Category: Medical Plan 1. Status post right carpal tunnel release DOS 05/1924 Patient appears to be well postoperatively Patient is about course At this time, due to evidence of small suture abscess, I prescribed the patient a 1 week course of Augmentin Patient was amenable to this plan Patient will follow-up in 1 week for wound check Medications: New amoxicillin-pot clavulanate 875-125 mg 1 tab PO BID 14 tabs 0RF 7 days Coding Level of Care Code Global (65054) Diagnoses Severe carpal tunnel syndrome of right wrist G56.01
[2024-06-24 14:06] VITALS: BMI 47.2
--- OUTSIDE RECORDS SUMMARY | 2024-06-24 16:34 | XMS_ITS | Continuity of Care Document ---
Author Name [facility] Organization [facility] Care Team Providers Care Degreasing Solution Reclaimer Name Role Phone [facility] Unavailable Unavailable Medications Combined list of [...] CITRON PHARMA L, 500 ea. BOTTLE Active [id number] 4 2023 10 Pharmac y Data Transac tion Service Facilit y Benzonatate ([employer]) 100 CAPSULE in 1 BOTTLE Active [id number] 06/26/19 2 4 2023 60 Pharmac y Data Transac tion Service Facilit y DIAZEPAM (DIAZEPAM), 5MG, TABLET, ORAL, IVAX PHARMACEUT, 100 ea. BOTTLE Active [id number] 4 2023 10 Pharmac y Data Transac tion Service Facilit y DULOXETINE HCL (DULOXETINE HCL), 60 MG, CAPSULE DR, ORAL, BRECKENRIDG E, 90 ea. BOTTLE Active [id number] 4 2023 90 Pharmac y Data Transac tion Service Facilit y DULOXETINE HCL (DULOXETINE HCL), 60 MG, CAPSULE DR, ORAL, BRECKENRIDG E, 90 ea. BOTTLE Active [id number] 4 2023 90 Pharmac y Data Transac tion Service Facilit y LIDOCAINE (lidocaine) , 5 %, ADH. PATCH, TOPICAL, AMNEAL PHARMACE, 30 ea. BOX Active [id number] 4 2023 30 Pharmac y Data Transac tion Service Facilit y LISINOPRIL (lisinopril ), 10 MG, TABLET, ORAL, LUPIN PHARMACEU, 1000 ea. BOTTLE Active [id number] 4 2023 30 Pharmac y Data Transac tion Service Facilit y LISINOPRIL (lisinopril ), 10 MG, TABLET, ORAL, LUPIN PHARMACEU, 1000 ea. BOTTLE Active [id number] 4 2023 30 Pharmac y Data Transac tion Service Facilit y LISINOPRIL (LISINOPRIL ), 5MG, TABLET, ORAL, LUPIN PHARMACEU, 1000 ea. BOTTLE Active [id number] 3 2022 30 Pharmac y Data Transac tion Service Facilit y LISINOPRIL (LISINOPRIL ), 5MG, TABLET, ORAL, LUPIN PHARMACEU, 1000 ea. BOTTLE Active [id number] 4 2023 30 Pharmac y Data Transac tion Service Facilit y LISINOPRIL- HCTZ (LISINOPRIL /HYDROCHLOR OTHIAZIDE), 10-12.5MG, TABLET, ORAL, LUPIN PHARMACEU, 100 ea. BOTTLE Active [id number] 4 2023 30 Pharmac y Data Transac tion Service Facilit y LISINOPRIL- HCTZ (LISINOPRIL /HYDROCHLOR OTHIAZIDE), 10-12.5MG, TABLET, ORAL, LUPIN PHARMACEU, 100 ea. BOTTLE Active [id number] 4 2023 30 Pharmac y Data Transac tion Service Facilit y SULFAMETHOX AZOLE-TRIME THOPRIM (sulfametho xazole/trim ethoprim), 800-160 MG, TABLET, ORAL, RISING PHARM, 100 ea. BOTTLE Active [id number] 4 2023 14 Pharmac y Data Transac tion Service Facilit y Allergies, Adverse Reactions, Alerts Combined list of allergies from Department of Defense and Veterans Affairs facilities. It does not include entries that were removed or entered in error. Substance Category Reaction Severity Reaction type Status Date Reported Comments Source acetaminophe n-hydrocodon e Drug allergy Active One or More [facility] Facilities CLIENT RELATIONSHIP EXECUTIVE ADHESIVES Propensity to adverse reaction (finding) active 0 [facility] Adhesives Allergy to substance Active One or More A Facilities CLIENT RELATIONSHIP EXECUTIVE HYDROCODONE Drug allergy (disorder) active 0 [facility] Latex Drug allergy Active One or More A Facilities CLIENT RELATIONSHIP EXECUTIVE LATEX GLOVE Propensity to adverse reactions to drug (finding) active 0 [facility] VICODIN Propensity to adverse reactions to drug (finding) active 0 [facility] Immunizations Combined list of available immunizations from the Department of Defense and Veterans Affairs facilities. 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 Status Comments Source COVID-19, mRNA, LNP-S, PF, 30 mcg/0.3 mL dose 2020 [place] (PFR) Not Given COVID-19, mRNA, LNP-S, PF, 30 mcg/0.3 mL dose DoD COVID-19, mRNA, LNP-S, PF, 30 mcg/0.3 mL dose 2020 [employer] [place] (PFR) Not Given COVID-19, mRNA, LNP-S, PF, 30 mcg/0.3 mL dose DoD COVID-19, mRNA, LNP-S, PF, 30 mcg/0.3 mL dose 2020 [employer] [place] (PFR) Not Given COVID-19, mRNA, LNP-S, PF, 30 mcg/0.3 mL dose DoD Vital Signs Combined list of inpatient and outpatient Vital Signs from Department of Defense and Veterans Affairs, ranging from 12 months to all on record, depending upon the facility. Vital Sign Value Date Comments Source Systolic Blood Pressure 132 mm[Hg] 02/04/20 20:15:44 One or More [facility] Facilities CLIENT RELATIONSHIP EXECUTIVE Diastolic Blood Pressure 78 mm[Hg] 02/04/2020 20:15:44 One or More [facility] Facilities CLIENT RELATIONSHIP EXECUTIVE Procedures Combined list of: 1) Procedures from [...] History Type Response Date Comment Sourc e Sex Representation Female 05/13/2023 Unknow n Organization This section is an empty soc ial [...] Plan No data available for this section 06/24/2024 Ambulatory Pharmacy Functional Status Combined list of recent functional and cognitive assessments recorded at [facility] [place] Functional [place] Measurement (FIM) Scale: 1 = Total Assistance (Subject = 0% +), 2 = Maximal Assistance (Subject = 25% +), 3 = Moderate Assistance (Subject = 50% +), 4 = Minimal Assistance (Subject = 75% +), 5 = Supervision, 6 = Modified [place] (Device), 7 = Complete [place] (Timely, Safely). Assessment Date/Time Source Assessment Type Assessment Skill Assessment Score Assessment Details No data available for this section
--- OUTSIDE RECORDS SUMMARY | 2024-06-24 16:34 | XMS_ITS | Data Portability ---
Author Organization [place] - [facility], [place] - [facility] - Address [address] [place] [address] Care Team Providers Care Interventional Neuroradiologist Name Role Phone ROBIN PENALOZANN Primary Care [...] 6-8 weeks. This visit was conducted via [employer] website [employer] using both audio and video during the 2019 COVID-19 pandemic. Patient consented to non face to face service. Patient location: car [place] [facility] time: 1417 End time: 1424 Participants [...] This visit was conducted via telehealth website [employer] using both audio and video during the 2020. Patient consented to non face to face service. Patient location: home Provider [place] [facility] Start time: 1424 End time: 1429 Participants [...] This visit was conducted via telehealth website [employer] using both audio and video during the 2019. Patient consented to non face to face service. Patient location: home Provider [place] [facility] Start time: 1352 End time: 1401 Participants [...] mg capsule,del ayed release 2021 022 [facility], [address], [place], [address], 15:13:01 duloxetine 60 mg capsule,del ayed release 04/06/ 2022 04/06/2 022 [facility], [address], [place], [address], 2 15:12:56 hydroxyzine HCl 50 mg tablet 2021 022 [facility], [address], [place], [address], 2 15:12:57 hydroxyzine HCl 50 mg tablet 2020 021 [facility], [address], [place], [address], 15:27:21 duloxetine 30 mg capsule,del ayed release 2020 021 [facility], [address], [place], [address], 15:27:17 duloxetine 60 mg capsule,del ayed release 2020 021 [facility], [address], [place], [address], 15:27:17 Patient TargetsNo targets recorded. Patient InstructionsNo instructions recorded. Reason for Referral None Reported. Problems Name Problem SNOMED Code Status Onset Date Resolution Date Notes Provider Name and Address Organization Details Recorded Time Multiple environm ental allergie s Active scotty sepulveda [facility] 6 12:23:04 Irritabl e bowel syndrome 04872744 Active celiac disease Ab testing Neg 11/03; improved w/ Gluten free diet scotty sepulveda [facility] 6 12:23:04 Gastroes ophageal reflux disease 035168897 Active scotty sepulveda [facility] 6 12:23:04 Mixed anxiety and depressi ve disorder 779757941 Active hx of post depressi on and took lexapro but felt poor response , wellbutr in was very neg side effects (bad vivid dreams of her hurting her family); zoloft was very good response but had to stop when breast feeding bad w/d (didn't wean) scotty sepulveda [facility] 6 12:23:03 Migraine 50834246 [facility] 12:[facility]:03 Hiatal hernia 24757559 [facility] 6 12:23:04 Hemorrho ids 03565864 Completed 12/11/2018 tx'd w/ anusol-H C Timbo Mckeon DO [address], [place], [address] , [facility] 9 17:20:55 Female stress incontin ence 28207789 [facility] 7 18:34:40 Pyelonep hritis 89130144 Completed 201412/11/2018 tx'd w/ Levaquin Timbo Mckeon DO [address], [place], [address] , [place] [facility] 9 17:19:51 Insomnia 979039133 [facility] 6 12:23:03 Fracture of hand 05153213 Completed 200912/11/2018 Left Timbo Mckeon DO [address], [place], [address] , [place] [facility] 9 17:20:04 Tinnitus 71254419 [facility] 6 12:23:04 Decrease d hearing 722707973 Completed 12/11/2018 Timbo Mckeon DO [address], [place], [address] , [place] [facility] 9 17:19:28 Reduced visual acuity 37317801 Active scotty banda null, [place] - [facility] 6 12:23:04 Sensorin eural hearing loss of bilatera l ears 427273363 Active Asha Bradford [address], [place], [address] , [place] [facility] 6 13:11:25 Menorrha obi 277429443 Active Margy Becker MD [address], [place], [address] , [place] [facility] 7 22:56:04 Blood in urine 07635479 Completed 12/11/2018 Timbo Mckeon DO [address], [place], [address] , [place] [facility] 9 17:19:34 Obesity 233994251 Active 2018 Timbo Mckeon DO [address], [place], [address] , [place] [facility] 9 01:18:28 Pregnanc y 62607365 Completed 201903/16/2020 Aliyahjanet [place] null, [place] - [facility] 0 12:25:25 Gestatio nal diabetes mellitus class A2 94437414 Active 2019 Aliyahjanet [place] null, [place] - [facility] 0 12:25:22 Gestatio nal diabetes mellitus class A2 83635207 Completed 2019 Aliyahjanet [place] null, [place] - [facility] 0 12:25:22 Depressi ve disorder 76929484 Active 2020 Yaya Casanova DO [address], [place], [address] , [place] [facility] 1 15:54:10 Notes:hx plantar fasciitis; hx [...] Non-Stress Test completed Malka VANEGAS, [address], [place], [address], [facility] 02/25/2020 13:33:54 02/18/20 20 Non-Stress Test completed Cali Ace MD [address], [place], [address], [facility] 02/18/2020 15:49:47 02/11/20 20 Non-Stress Test completed Cali Ace MD [address], [place], [address], [facility] 02/11/2020 15:03:18 01/12/20 20 Non-Stress Test completed Cali Ace MD [address], [place], [address], [place] [facility] 01/12/2020 18:21:04 12/19/19 19 Date of Last Pap Smear completed Timbo Mckeon DO [address], [place], [address], [facility] 12/24/2018 14:45:47 06/30/19 17 Ortho Corticosteroid Injection completed Vy Feliciano [facility] 06/29/2016 12:26:26 06/29/19 17 Cystoscopy (female) completed Chuck VANEGAS, [address], [place], [address], [facility] 06/28/2016 12:41:47 06/14/19 17 Bladder Scan completed Chuck VANEGAS, [address], [place], [address], [facility] 06/14/2016 13:22:58 04/05/20 16 Tympanometry completed Asha Bradford [address], [place], [address], [facility] 04/05/2016 13:11:04 04/05/20 16 Audiogram.old completed Asha Bradford [address], [place], [address], [facility] 04/05/2016 13:11:04 11/21/19 15 Other completed Georgi Moctezuma MD [address] [facility] [address], [place], [address], [facility] 01/13/2016 00:18:30 10/21/19 15 Other completed Georgi Moctezuma MD [address], [place], [address], [facility] 01/13/2016 00:18:30 04/22/19 00 [place] Teeth Removed completed Georgi Moctezuma MD [address], [place], [address], [facility] 01/12/2016 22:50:32 Oral surgery procedure completed Dena Argueta [facility] 04/06/2016 12:36:17 Imaging Results None recorded. Procedure Notes None recorded. Medical Equipment None Reported. Allergies Allergen ID Allergen Name Allergen Category Reaction Reaction Severity Criticality Documentation Date Start Date Code Code System Note Provider Name and Address Organization Details Recorded Time 775930 latex environme nt,medica tion hives moderate Not available 01/12/2016 07320 91 RxNorm Georgi Moctezuma MD [address], [place], [address], [facility] 6 22:23:54 686555 acetamino phen / hydrocodo ne medicatio n other moderate Not available 04/05/2016 80299 2 RxNorm facia l numbn ess scotty banda null, [facility] 6 12:23:03 447553 Wellbutri n medicatio n Not available Not available Not available 06/18/2016 71550 RxNorm vivid dream s/fri ghten ing ; used w/ post partu m alivia Moctezuma MD, Georgi Costa [address], [place], [address], [facility] 7 11:10:40 580327 adhesive tape environme nt,medica tion Not available Not available Not available 03/16/2020 99253 UNK Aliyah Julian null, [facility] 0 12:21:24 Medications Name Sig Start [...] e 137 mcg (0.1 %) nasal spray [place] 1 spray every day by intranas al [...] Not Available Not Available Not Available FreeStyle [place] Lite kit 03/16 completed Not Available Not [...] completed Not Available Not Available Not Available Se- 19 29 mg iron-1 mg tablet Take 1 tablet by oral route for 90 days. 08/17 completed Not Available Not Available Not Available Vitals None Recorded Social History Question Answer Notes LastModified by Organizat ion Details LastModified Time Tobacco Smoking Status Never Smoker 12/11/[address] [facility], [place] - [facility] 12/11/2018 16:59:59 Do You Have An Advance Directive? 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 She Does Not Want To Be Maintained On Chronic Life Support If There Is Little Hope Of A Meaningful Recovery. - 12/18/2018 Information not available 12/18/2018 What Is Your Level Of Alcohol Consumption? None [email or web address] Information not available 10/27/2019 Are You Blind [...] COVID-19 While That Case Was Ill? No [email or web address] Information not available 07/30/2019 In The 14 Days Before Symptom Onset, Have You Had Close Contact With A Person Who Is Under Investigation For COVID-19 While That Person Was Ill? No [email or web address] Information not available 07/30/2019 Have You Been To An Area Known To Be High Risk For COVID-19? No [email or web address] Information not available 07/30/2019 What Type Of Diet Are You Following? REGULAR Low Sodium Information not available 01/12/2016 Which Illicit Or Recreational Drugs Have You Used? None Information not available 12/11/2018 Do You Or Have You Ever Used E-cigarettes Or Vape? 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 No 12/11/18 Mh Information not available 04/06/2016 Have You Traveled Outside Of The [place] In The Last 21 Days (3 Weeks)? No Information not available 04/06/2016 Do You Have Any Sikh Beliefs That May Impact Your Health Care Decisions? No Does Not Follow Any Jain Information not available 12/11/2018 Did You Hurt [...] Details LastModified Time Father Myocardial infarction 55 [email or web address] Not available 04/25 18:44:02 Father Hypertensive disorder [email or web address] Not available 2016 18:44:02 Father Hyperlipidem ia Not available 2016 18:44:02 Paternal Aunt Malignant tumor of cervix [email or web address] Not available 2016 18:44:02 Paternal Aunt Dementia [email or web address] Not a vailable 04/25/2016 18:44:02 Mother Pyelonephrit [...] Prostate N Erectile Dysfunction N Cancer N Elevated PSA N Asthma Depression Y Reconstructive surgeries N Endometriosis N Urinary Problems [...] quadrivalent , PF 1 completed Maile sepulveda [facility] 03/15/2021 12:10:26 COVID-19, mRNA, LNP-S, PF, 30 mcg/0.3 mL dose 1 completed Savana sepulveda [facility] 08/30/2020 10:45:30 COVID-19, mRNA, LNP-S, PF, 30 mcg/0.3 mL dose 1 completed Savana sepulveda [facility] 08/30/2020 10:45:45 COVID-19, mRNA, LNP-S, PF, 30 mcg/0.3 mL dose 1 completed Maile sepulveda [facility] 03/15/2021 11:48:03 Influenza, split virus, trivalent, PF 8 cancelled patient objection Not Available [facility] 05/09/2019 02:33:30 Influenza, MDCK, quadrivalent , PF 8 completed Not Available [facility] 05/09/2019 03:23:32 Influenza, MDCK, quadrivalent , PF 9 completed Not Available [facility] 05/09/2019 03:01:50 Influenza, split virus, quadrivalent , PF 0 completed Savana sepulveda [facility] 01/05/2020 16:31:36 Tdap 3 completed Not Available [facility] 03/07/2020 09:20:47 Past Encounters Encounter ID Performer Location Encounter Start Date Encounter Closed Date Diagnosis/Indication Diagnosis SNOMED-CT Code Diagnosis ICD10 Code Diagnosis Note [id number] Anisha Mcclain [facility] [address] [place] [address] 01/12/2016 10:23:10 01/13/2016 12:09:34 Adult health examination 375925000 Z00.00 Hematology screening test 019359302 Z13.0 Hyperlipid emia screening 394621931 Z13.220 Endocrine/ metabolic screening 537468008 Z13.228 Mixed anxi ety and depressive disorder 560545646 F41.8 Tinnitus 33731003 H93.13 Decreased hearing 300020 001 H91.93 Reduced visual acuity 13 785080 H54.7 [facility] care 30410 5005 Z30.40 [id number] Lv lucas MD, Chandrakant Shipley [facility] [place] [place] [address] [facility] [address] [place] [address] 04/05/2016 11:57:03 04/05/2016 13:17:18 Tinnitus 31910444 H93.13 At this time the patient has bilateral tinnitus, most likely due to her bilateral hearing loss. Please see plan as described above. FG Allergic r hinitis caused by pollen 81903954 J30.1 At this time the patient has [...] Sensorineu ral hearing loss of bilateral ears 052882077 H90.3 At this time the patient comes [...] will follow up as needed. FG Dizziness 087472280 R42 At this time the patient also complains of an off balance feeling with walking up and down stairs, but does not have any other problems. We will see if this improves on nasal steroid spray. She had no further questions and will follow up as needed for now. FG [id number] Asha Bradford [facility] [place] [address] [place] [address],[address] [place] [address] 04/05/2016 13:09:55 04/05/2016 13:12:09 Sensorineural hearing loss of bilateral ears 010547219 H90.3 [id number] Eugenio VANEGAS, Margy Valdivia [facility] [employer] [place] [address] [place] [place] [address],[address] [place] [address] 04/06/2016 12:09:16 04/06/2016 13:47:10 Gynecologic examination 89126314 Z01.419 Screening for malignant neoplasm of cervix 859875493 Z12.4 Menorrhagia 618655668 N9 2.0 History of urinary tract infection 3202537517 107 Z87.440 Surveillan ce of contraception 591338419 Z30.40 [id number] Eugenio VANEGAS, Margy Valdivia [facility] [place] POS [address] [place] [address],[address] [place] [address] 04/25/2016 17:48:13 04/25/2016 19:53:53 Menorrhagia 969722373 N92.0 Blood in urine 24001969 R31.9 [id number] Rhianna VANEGAS, Georgi Costa [facility] [address],[facility] [place] [address] 05/08/2016 10:01:31 05/08/2016 12:08:23 Migraine 19632970 G43.909 Mixed anxi ety and depressive disorder 413151690 F41.8 Carpal davonte simon syndrome 37479477 G56.00 Insomnia 036236476 G47.0 0 Hand pain 60065451 M79.6 42 Vitamin D deficiency 347 17187 E55.9 [id number] Chuck VANEGAS, [facility] POS [address] [place] [address] 06/14/2016 12:22:40 06/14/2016 14:22:12 Microscopic hematuria 328713940 R31.21 she had 2-5 rbc on last ua done 04/26.17-has had full workup done in the past by another urologist and was negative but it was a while agozahida send urine for c/s and cytology-f ollow up for cystoscopy in office Renal colic 8863222 N23 she is having bilateral flank pain-previ ous urologist had checked a renal us but 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-jc l do ct scan for stone search prior to cystoscopy [id number] Rhianna VANEGAS, Georgi Costa [facility] POS [address] [employer],[place] [address] 06/18/2016 10:33:06 06/18/2016 12:04:21 Mixed anxiety and depressive disorder 709896849 F41.8 [id number] Chuck VANEGAS, [facility] POS [address] [place] [address] 06/28/2016 12:09:59 06/28/2016 12:45:15 Blood in urine 60466765 R31.9 her cystoscopy shows mild chronic bullous cystitis and a diverticul um, mild grade 1 trabeculat ions-will start on suppressiv e dose macrodanti n for one monthfollo w up in 3mos [id number] Donnell VANEGAS, Luis Soliz [facility] ORTHOPED[facility]UR[facility] POS [address] [place] [address] 06/29/2016 11:24:40 07/13/2016 10:46:48 Hand pain 03156704 M79.643 Carpal davonte simon syndrome 92616678 G56.01 G56.02 [id number] Donnell VANEGAS, Luis Soliz [facility] [place] POS [address] [place] [address] 07/13/2016 11:07:42 07/13/2016 13:24:50 Pain in wrist 18070186 M25.531 Hand pain 22377806 M79.6 43 Carpal davonte simon syndrome 79724347 G56.01 G56.02 [id number] Rhianna VANEGAS, Georgi Costa [facility] [place] [address],[place] [address] 07/16/2016 10:58:41 07/16/2016 11:42:57 Mixed anxiety and depressive disorder 970011094 F41.8 [id number] Donnell VANEGAS, Luis Reynaoil [facility] CSURGERY [place] [address] [place] [address] 08/13/2016 11:24:07 08/13/2016 12:23:07 Hand pain 70487697 M79.641 Pain in wrist 71853169 M 25.531 Carpal davonte simon syndrome 69171147 G56.01 G56.02 [id number] Donnell VANEGAS, [facility] [place] [address] [place] [address] 09/20/2016 11:45:56 09/20/2016 14:44:21 Pain in wrist 88596453 M25.531 M25.532 Hand pain 57629208 M79.6 41 Carpal davonte simon syndrome 74297736 G56.01 G56.02 [id number] Chuck VANEGAS, [facility] [place] POS [address] [place] [address] 10/04/2016 11:54:33 10/04/2016 12:31:12 Blood in urine 12237101 R31.9 she had history of microhemat uriawas given 3mos of suppressiv e dose abxhas not seen any blood in urinewill check ua/culture Bladder mu scle dysfunction - overactive 302181280 N32.81 she goes to bathroom every 2 hours during day and 2 times at night, occ urge incontinen cetrial of myrbetriq Female str ess incontinence 53047372 N39.3 -she does not require pads for the problemonl y occurs occasional ly with sneezingdi scussed treatment options- e will observe for now [id number] Donnell VANEGAS, Luis Soliz [facility] [address] [place] [address] 10/08/2016 09:47:26 10/08/2016 10:46:23 Pain in wrist 71972866 M25.531 M25.532 Hand pain 18881865 M79.6 41 Carpal davonte simon syndrome 07225288 G56.01 G56.02 [id number] Donnell VANEGAS, Luis Soliz [facility] [address] [facility] [place] [address] 11/09/2016 10:50:45 11/09/2016 12:33:48 Pain in wrist 06330973 M25.531 M25.532 Neck pain 86966043 M54.2 Hand pain 05577352 M79.6 41 Carpal davonte simon syndrome 97189639 G56.01 G56.02 [id number] Rhianna VANEGAS, Georgi [facility] [address] [employer],[place] [address] 11/21/2016 10:22:19 12/11/2016 16:16:59 Low back pain 134324812 M54.5 Snoring 42737359 R06.83 [id number] Rhianna VANEGAS, Georgi [facility] [address] [employer],[place] [address] 01/10/2017 16:20:44 01/10/2017 17:19:55 Pain in left knee 6786008299 47646 M25.562 Depressive disorder 3548 9007 F32.89 Fatigue 52015251 R53.83 [id number] Chuck VANEGAS, Vibha [facility] - [facility] [address] [place] [address] 01/31/2017 11:27:16 01/31/2017 12:47:19 Bladder muscle dysfunction - overactive 105423263 N32.81 she goes to bathroom every 2 hours during day and 2 times at night, occ urge incontinen cemyrbetri q didn't help and wasn't covered Female str ess incontinence 79156738 N39.3 she is more bothered by it latelywoul d like to try physical therapyref erral to ati womens health given [id number] Tete Brian DO [facility] Maddie [facility] AM#1 [address] [place] [address] 03/08/2017 11:55:53 03/13/2017 00:11:33 Fatigue 32630222 R53.83 --concerns for fatigue and insomnia. Have discussed sleep hygeine techniques with patient and reviewed the sleep study with her. Discussed weight loss and controllin g nasal congestion .--Pt will attempt these and follow up in the next 3 months. Allergic rhinitis 221408 04 J30.9 --nasal congestion Obesity 739687461 E66.9 --discusse d keeping track of her calories and aiming to eat about 500 calories less then what she normally eats.--Pt should f/u in 3 months on weight loss. [id number] Tete Brian DO [facility]#1 [address] [place] [address] 06/12/2017 10:00:03 06/12/2017 10:41:36 Active or passive immunization 617759816 Z23 Fatigue 20971396 R53.83 --cont use of breathe right strips and use nasal steroid. Allergic rhinitis 181452 04 J30.9 --nasal congestion continued. Increase cetirizine to 10 mg daily, but go back to 5 mg if she feels overly fatigued. Cont fluticason e and also start azelastine daily. Gastroesop hageal reflux disease 207643012 K21.9 [id number] Tete Brian DO [facility] AM#1 POS [address] [place] [address] 08/12/2017 10:54:36 08/12/2017 11:48:10 Obesity 809451748 E66.9 --discusse d weight loss and diet again Insomnia 845352140 G47.0 0 --pt instructed to take amitriptyl ine daily.--Co unselled on possible side effects. RTC if insomnia worsens Neck pain 49732655 M54.2 --negative adsons test, negative spurling sign. Muscle spasm in b/l neck.--Giv en exercises for neck. OTC tylenol and ibuprofen. RTC as needed. Migraine 46572338 G43.90 9 [id number] Tete Brian DO [facility] AM#1 POS [address] [place] [address] 02/11/2018 10:03:22 02/11/2018 10:50:04 Administration of influenza vaccine 96053972 Z23 Migraine 53924124 G43.90 9 --fioricet , amitriptyl ine and topiramate Insomnia 300342956 G47.0 0 --pt instructed to take amitriptyl ine daily.--Co unselled on possible side effects. RTC if insomnia worsens Environmental allergy 42 2796423 T78.49XA [id number] Shade VANEGAS, Nitin [facility] AM#1 POS [address] [place] [address] 04/02/2018 14:24:14 04/02/2018 15:10:58 Adult health examination 396137396 Z00.00 Migraine 15962303 G43.90 9 [id number] Timbo Mckeon DO [facility]#1 [address] [facility] [place] [address] 12/11/2018 16:42:55 12/11/2018 17:56:44 Bladder muscle dysfunction - overactive 974149148 N32.81 she has urinary incontinen ce and requesting a refill of the detrol, this has helped her in the past Body mass index 30+ - obesity 655362342 Z68.39 The patient's current weight is 209# with a height of 5' 1.25 and a correspond ing BMI (Body Mass Index) of 39.2. The medical definition of Obesity is a BMI greater than 30. Your Pinch Body Weight is approximat malinda about 116#. [...] migraine prophylaxi s and weight loss. Migraine 67232803 G43.90 9 see the above plan [id number] Timbo Mckeon DO [facility] - [facility]1 POS [address] [facility] [place] [place] [address] 12/18/2018 09:57:19 12/18/2018 11:37:10 Adult health examination 875340869 Z00.00 Female Complete Physical Exam: I discussed [...] exercise, diet. Achieve/ma intain ideal body weight. 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 Active or passive immunization 906738814 Z23 Flu vaccine today, She is up to date with the Tdap Body mass index 30+ - obesity 346627560 Z68.38 The patient's current weight is 206.75# with a height of 5' 1.25 and a correspond ing BMI (Body Mass Index) of 38.7. The medical definition of Obesity is a BMI greater than 30. Your Pinch Body Weight is approximat malinda about 116#. A reduced calorie, reduced carbohydra te weight reduction diet as well as increased activity.. She has lost about 3# since the last visit Hyperhidro sis of axilla 295728404 L74.510 Drysol Jessie.ly to axilla once daily at first and then about three times per week, do not apply to fresh shaven skin. Elevated blood-pressure reading without diagnosis of hypertension 752128899 R03.0 I encouraged the patient to check the blood pressure and log the results. Please follow a reduced sodium diet and maintain/a chieve ideal body weight. [id number] Malka VANEGAS, Cali Carter [facility] - ENGINEERING PRODUCTION WORKER [employer] POS [address] [place] [address] 07/30/2019 10:48:16 07/30/2019 12:44:41 test positive 729351004 Z32.01 Mild hyper emesis gravidarum 70430071 O21.0 Reviewed and hyperemesi s with patient. Reviewed diet at length. Questions answered. Recommend consider hold PNV. Start vitamin B6, unisom. Ob dating u/s in 1 week. f/u 1wk. Amenorrhea 24939361 N91. 2 Reviewed findings, positive test. [id number] Malka VANEGAS, Cali Carter [facility] - ENGINEERING PRODUCTION WORKER [facility] POS [address] [place] [address] 08/04/2019 11:31:16 08/04/2019 13:34:46 Disorder of menstruation 727832005 N92.6 Ob u/s reviewed, show viable iup consistent with LMP dating. Reviewed with patient. Routine an tenatal care 607834912 Z34.81 Z3A.08 Venereal d isease screening 064198521 Z11.3 Advanced m aternal age 960469478 O09.899 [id number] Malka VANEGAS, [facility] - ENGINEERING PRODUCTION WORKER [employer] POS [address] [place] [address] 7 08/18/2019 11:25:44 08/18/2019 13:21:34 Advanced maternal age 706684633 O09.899 Routine an tenatal care 195828087 Z34.81 Z3A.08 Mild hyper emesis gravidarum 91346455 O21.0 mostly resolved [id number] Malka VANEGAS, [facility] POS [address] [place] [id number] 09/22/2019 13:57:14 09/22/2019 14:40:34 Multigravida of advanced maternal age 675008845 O09.522 Z3A.15 [id number] Malka VANEGAS, [facility] POS [address] [place] [id number] 7 10/20/2019 13:50:29 10/20/2019 15:17:10 Multigravida of advanced maternal age 220919278 O09.523 Z3A.19 [id number] Primitivo VANEGAS, Dickson [facility] - [place] [facility] POS [address] [place] [address] 10/27/2019 10:57:43 10/27/2019 14:41:15 Advanced maternal age 800363078 O09.899 expo sure to alcohol 239669762 O35.4XX9 expo sure to drug 341348639 O35.5XX9 Tolterodin e exposure [id number] Malka VANEGAS, [facility] POS [address] [place] [id number] 7 11/24/2019 14:02:44 11/24/2019 15:47:27 Advanced maternal age 575691623 O09.899 Z3A.24 [id number] Malka VANEGAS, [facility] - ENGINEERING PRODUCTION WORKER [employer] POS [address] [place] [id number] 7 12/08/2019 13:27:12 12/08/2019 15:22:20 Gestational diabetes mellitus 91913750 O24.410 [id number] [facility] - [place]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 Heart Rate Present A 150 Fetus Movement Comments ob/fu -Initial ob labs drawn today- c/o pelvic cramping due to constipation on Saturday, Dr. Marquez prescribed Dulcolax (bisacodyl) 5 mg tablet,delayed release. Pt has been feeling better. No other c/o. labs today. [place] test reviewed. Patient would like to proceed. N/V much improved. PTL signs and symptoms reviewed. f/u 5wk. Flowsheet Date 09/22/2019 Jackson Score Blood Edema Fundus Height Fundus Units Glucose Ketones Leukocytes Nitrite Labor Signs Protein Cervic Dilation Cervic Effacement Cervic Station trace none neg Type Weight in lbs Pre/Post Dialysis Refused With clothes 205.854983429633 BP Diastolic BP Location Tested BP Systolic BP Type 80 L arm 132 sitting Fetus Heart Rate Present A 150 Fetus Movement Comments ob/fu - nausea has decreased . c/o pelvic pain when standing or shifting side to side in bed. Reviewed [place] neg. No other c/o. PTL signs and symptoms reviewed. Sched [facility] u/s. f/u 4wk. Flowsheet Date 10/20/2019 Jackson Score Blood Edema Fundus Height Fundus Units Glucose Ketones Leukocytes Nitrite Labor Signs Protein Cervic Dilation Cervic Effacement Cervic Station 20 none neg Type Weight in lbs Pre/Post Dialysis Refused With clothes 208.66701130489 BP Diastolic BP Location Tested BP Systolic BP Type 78 R arm 120 sitting Fetus Heart Rate Present A 150 Fetus Movement A Yes Comments ob/fu - MFM scheduled on 10/26. c/o continues to have nausea, frequent crackling in her right ear, nasal congestion, mild nose bleeds. No other c/o. Exam neg, TM neg. recommend saline mist. [facility] u/s sched 10/26. PTL signs and [...] in lbs Pre/Post Dialysis Refused With clothes 206.634524674696 BP Diastolic BP Location Tested BP Systolic BP Type 72 L arm 124 sitting Fetus Heart Rate Present A 150 Fetus Movement A Yes Comments Glucose and cbc labs today. Ingrown hair has been having some discomfort. Exam neg. 1hr gluc today. Reviewed [facility] u/s. PTL signs and symptoms reviewed. f/u 2wk. Flowsheet Date 12/08/2019 Jackson Score Blood Edema Fundus Height Fundus Units Glucose Ketones Leukocytes Nitrite Labor Signs Protein Cervic Dilation Cervic Effacement Cervic Station none neg Type Weight in lbs Pre/Post Dialysis Refused With clothes 208.224675270823 BP Diastolic BP Location Tested BP Systolic BP Type 70 L arm 118 sitting Fetus Heart Rate Present A 150 Fetus Movement A Yes Comments ob fu. No complains. Reviewe d 3hr gtt pos. refer to [facility], dietitian. Send glucometer, chem strips, lancets. [...] in lbs Pre/Post Dialysis Refused With clothes 207.022080526435 BP Diastolic BP Location Tested BP Systolic BP Type 72 L arm 124 sitting Fetus Heart Rate Present A 145 Fetus Movement A Yes Comments Pt c/o pain on hips when sle eping. Occ tightening muscle on ankle and foot. Denies other c/o. MFM u/s reviewed. BS fasting intermitt elevated, adjusting diet per cellars supervisor. PTL signs and symptoms reviewed. f/u 2wk. Flowsheet Date 01/05/2020 Jackson Score Blood Edema Fundus Height Fundus Units Glucose Ketones Leukocytes Nitrite Labor Signs Protein Cervic Dilation Cervic Effacement Cervic Station 32 none neg Type Weight in lbs Pre/Post Dialysis Refused With clothes 205.972597302555 BP Diastolic BP Location Tested BP Systolic [...] in lbs Pre/Post Dialysis Refused With clothes 205.658459280865 BP Diastolic BP Location Tested BP Systolic [...] in lbs Pre/Post Dialysis Refused With clothes 205.033335325204 BP Diastolic BP Location Tested BP Systolic [...] in lbs Pre/Post Dialysis Refused With clothes 204.123628205191 BP Diastolic BP Location Tested BP Systolic [...] in lbs Pre/Post Dialysis Refused With clothes 205.239965981126 BP Diastolic BP Location Tested BP Systolic [...] in lbs Pre/Post Dialysis Refused With clothes 205.392619331828 BP Diastolic BP Location Tested BP Systolic [...] in lbs Pre/Post Dialysis Refused With clothes 201.043022036096 BP Diastolic BP Location Tested BP Systolic BP Type 80 L arm 120 sitting Fetus Heart Rate Present A 145 Fetus Movement A Yes Comments ob/fu - Pt was at [facility] on Saturday due to having [...] in lbs Pre/Post Dialysis Refused With clothes 192.504801559884 BP Diastolic BP Location Tested BP Systolic [...] 09/22/2019 Toxoplasmosis precautions (cats/raw meat) [email or web address] 09/22/2019 Jain [email or web address] 09/22/2019 Hospital choice [email or web address] 09/22/2019 Blood [...]
== END 2024-06-24 14:16 | disposition home or self-care (01) ==
PROVIDERS: PCP Internal Medicine
DX: G56.01 Carpal tunnel syndrome, right upper limb (principal)
CPT/HCPCS: 99024

== ENCOUNTER → 2024-06-24 13:51 | Outpatient (BNVA) | payer OTHER, SELFPAY | PROVIDERS: PCP Internal Medicine | DX: T81.41XA Infection following a procedure, superficial incisional surgical site, initial encounter (principal); X58.XXXA Exposure to other specified factors, initial encounter; Y93.9 Activity, unspecified; Y92.9 Unspecified place or not applicable; Y99.9 Unspecified external cause status; Z48.811 Encounter for surgical aftercare following surgery on the nervous system; Z98.890 Other specified postprocedural states | CPT/HCPCS: 99212 ==

== ENCOUNTER 2024-06-30 12:44 | Outpatient (AMB) | payer OTHER, SELFPAY ==
--- NOTE | 2024-06-30 12:59 | A.OFFPSYCH_ITS ---
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: No Allergies latex Adverse Reaction (Mild, Verified 06/24/24 14:04) hives Medication List - Last Reconciled 06/30/24 by Lynn Kemp APRN amoxicillin-pot clavulanate 875-125 mg 1 tab PO BID 7 days cholecalciferol (vitamin D3) 125 mcg PO DAILY dextroamphetamine-amphetamine 10 mg (Adderall) 10 mg PO BID duloxetine 90 mg (3 x 30 mg) PO DAILY 30 days hydroxyzine HCl 25 mg PO TID PRN lisinopril-hydrochlorothiazide 10-12.5 mg 1 tab PO DAILY magnesium oxide 400 mg PO DAILY 30 days mirtazapine 7.5 mg PO BEDTIME 30 days Myrbetriq ER (mirabegron) 50 mg PO DAILY 90 days NS omega 2-xqy-adw-fish oil 100-160-1,000 mg (Fish Oil) caps PO ondansetron 8 mg PO Q8H oxycodone-acetaminophen 5-325 mg 1 tab PO Q6H PRN prazosin 2 mg PO BEDTIME 30 days solifenacin (Vesicare) 5 mg PO DAILY 30 days HPI- Psychiatric Chief Complaint: f/u consultation HPI Narrative: pt here for follow up on depression, anxiety, and ADHD. Pt reports stable mood. She reports no change from adderall 10mg bid; no side effects. PHQ9= 4 and GAD7= 2. sleep and appetite intact; no SI or HI. 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 Past Psychiatric History: outpt tx since age 22. No IPLOC PAST MEDICTIONS: lexapro- increased anger wellbutrin- very negative/angry zoloft- woorked first time took - did not work on retrial prozac- ok for a bit and then stopped working effexor- excessive weight gain Subjective Subjective Subjective Medication Compliance: Yes Side effects from medications: No Review of Systems Medical Review of Systems: unchanged Mental Status Exam Mental Status Exam Patient Appearance: Well Grooomed Patient Orientation: Person, Place, Time and Situation Level of Consciousness: Awake and Appropriate Patient Behavior: Appropriate and Cooperative Mood Description: Calm and Happy Affect Description: Calm and Happy Patient Cognition Impaired: No Ability to Follow Directions: Good Speech Pattern: Clear, Appropriate and Coherent Memory Description: Intact Hallucinations: None Delusions: Not Present Thought Process: Intact and Distracted Thought Content: positive for Intact and positive for Loose Associations Judgement: Good Assessment and Plan Assessment & Plan (1) ADHD (attention deficit hyperactivity disorder), combined type: Status: Acute Code(s): F90.2 - Attention-deficit hyperactivity disorder, combined type (2) SAMMY (generalized anxiety disorder): Status: Acute Code(s): F41.1 - Generalized anxiety disorder (3) Major depressive disorder, recurrent, moderate: Status: Acute Code(s): F33.1 - Major depressive disorder, recurrent, moderate Plan increase the adderall to 15mg BID continue other meds as per below pt will portal message me in 7-10 days to report on efficacy of 15mg bid consider extended release adderall once dose established return for follow up in 8 weeks Medications: Refilled prazosin 2 mg PO BEDTIME 30 days 30 caps 2RF duloxetine 90 mg (3 x 30 mg) PO DAILY 30 days 90 caps 2RF hydroxyzine HCl 25 mg PO TID PRN 90 tabs 1RF itching mirtazapine 7.5 mg PO BEDTIME 30 days 30 tabs 2RF Counseling and coordination of Care Pt. Self Management counseling: Maintenance-social rhythm, Mod caffeine/ETOH intake, Nutrition education and improvement, Sleep hygiene, General coping skills and Problem solving Medication management counseling: Effectiveness, Side effects, Dosing range, Duration, Drug interaction and Adherence Diagnosis and Prognosis Counseling: Accuracy of diagnosis, Prognosis over time, Impact of diagnosis on life functions, Impact of family relationship, Problematic behaviors secondary to diagnosis and Adequacy of current interventions Details: I spent 35 minutes reviewing the record, seeing the patient and documenting in the medical record. Counseling provided to the patient/caregiver as outlined below. Addressed patient/caregiver concerns regarding current medication regime including effective adherence. Addressed patient/caregiver concerns regarding diagnosis and prognosis including accuracy of diagnosis, prognosis over time, impact of diagnosis. Addressed patient/caregiver concerns regarding impact of recent stressors. [facility] Medical History Nausea and vomiting in adult Acute respiratory disease Major depressive disorder, recurrent, severe with psychotic features Decreased hearing Tinnitus Reduced visual acuity Pyelonephritis (03/22/15) (08/04/19) Obesity (12/12/18) Migraine Menorrhagia Irritable bowel syndrome Insomnia Hiatal hernia Hemorrhoids Gastroesophageal reflux disease Fracture of hand (04/22/09) Female stress incontinence Blood in urine Severe carpal tunnel syndrome of right wrist Medical clearance for psychiatric admission Hypertriglyceridemia Positive Tinel's sign Positive Phalen maneuver Cervicalgia HTN (hypertension) Decreased hearing of both ears Environmental and seasonal allergies Tinnitus of both ears Knee pain Excessive daytime sleepiness Loud snoring Vitamin D deficiency Impaired fasting glucose Mixed dyslipidemia Morbid obesity Hiatal hernia with gastroesophageal reflux Family history of premature CAD Annual visit for general adult medical examination with abnormal findings Surgical History H/O endoscopy H/O wisdom tooth extraction Family History Father Substance use disorder Mental health disorder Alcoholism Myocardial infarction acute, Onset Age: 55 Depression Maternal Uncle Testicular cancer Social History Household Members: Family Household Members Other:: and 2 children Housing: House Do you presently have visiting nurse or other home services: No Alcohol intake: current Alcohol intake frequency: holidays/special occasions only Patient Tobacco Use Status: Never used Tobacco e-Cigarette/Vaping Use: Never Used Substance Use Type: Marijuana service: No Current occupational status: unemployed and other 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 family has moved around a lot due to pt grew up in [place]. lived with both parents; after her father lost his job they all moved in with grandmother; family experienced severe poverty- very traumatic. no running water, no food, no electricity at times. no telephone, no flushing toilets no lights. Father became ETOHIC and massive heart attack at age 55. Pt has 3 siblings. Substance History: none Trauma History: childhood severe poverty Coding Level of Care Code Est Pt Level 4 (10720) Diagnoses ADHD (attention deficit hyperactivity disorder), combined type F90.2 SAMMY (generalized anxiety disorder) F41.1 Major depressive disorder, recurrent, moderate F33.1
--- OUTSIDE RECORDS SUMMARY | 2024-06-30 15:16 | XMS_ITS | Continuity of Care Document ---
Author Name [facility] Organization [facility] Care Team Providers Care Insurance Sales Specialist Name Role Phone [facility] Unavailable Unavailable Medications Combined list of outpatient [...] CITRON PHARMA L, 500 ea. BOTTLE Active [id number] 4 2023 10 Pharmac y Data Transac tion Service Facilit y Benzonatate ([employer]) 100 CAPSULE in 1 BOTTLE Active [id number] 06/26/19 2 4 2023 60 Pharmac y Data Transac tion Service Facilit y DIAZEPAM (DIAZEPAM), 5MG, TABLET, ORAL, IVAX PHARMACEUT, 100 ea. BOTTLE Active [id number] 4 2023 10 Pharmac y Data Transac tion Service Facilit y DULOXETINE HCL (DULOXETINE HCL), 60 MG, CAPSULE DR, ORAL, BRECKENRIDG E, 90 ea. BOTTLE Active [id number] 4 2023 90 Pharmac y Data Transac tion Service Facilit y DULOXETINE HCL (DULOXETINE HCL), 60 MG, CAPSULE DR, ORAL, BRECKENRIDG E, 90 ea. BOTTLE Active [id number] 4 2023 90 Pharmac y Data Transac tion Service Facilit y LIDOCAINE (lidocaine) , 5 %, ADH. PATCH, TOPICAL, AMNEAL PHARMACE, 30 ea. BOX Active [id number] 2023 30 Pharmac y Data Transac tion Service Facilit y LISINOPRIL (lisinopril ), 10 MG, TABLET, ORAL, LUPIN PHARMACEU, 1000 ea. BOTTLE Active [id number] 4 2023 30 Pharmac y Data Transac tion Service Facilit y LISINOPRIL (lisinopril ), 10 MG, TABLET, ORAL, LUPIN PHARMACEU, 1000 ea. BOTTLE Active [id number] 4 2023 30 Pharmac y Data Transac tion Service Facilit y LISINOPRIL (LISINOPRIL ), 5MG, TABLET, ORAL, LUPIN PHARMACEU, 1000 ea. BOTTLE Active [id number] 3 2022 30 Pharmac y Data Transac tion Service Facilit y LISINOPRIL (LISINOPRIL ), 5MG, TABLET, ORAL, LUPIN PHARMACEU, 1000 ea. BOTTLE Active [id number] 4 2023 30 Pharmac y Data Transac tion Service Facilit y LISINOPRIL- HCTZ (LISINOPRIL /HYDROCHLOR OTHIAZIDE), 10-12.5MG, TABLET, ORAL, LUPIN PHARMACEU, 100 ea. BOTTLE Active [id number] 4 2023 30 Pharmac y Data Transac tion Service Facilit y LISINOPRIL- HCTZ (LISINOPRIL /HYDROCHLOR OTHIAZIDE), 10-12.5MG, TABLET, ORAL, LUPIN PHARMACEU, 100 ea. BOTTLE Active [id number] 4 2023 30 Pharmac y Data Transac tion Service Facilit y SULFAMETHOX AZOLE-TRIME THOPRIM (sulfametho xazole/trim ethoprim), 800-160 MG, TABLET, ORAL, RISING PHARM, 100 ea. BOTTLE Active [id number] 4 2023 14 Pharmac y Data Transac tion Service Facilit y Allergies, Adverse Reactions, Alerts Combined list of allergies from [facility] and [facility] facilities. It does not include entries that were removed or entered in error. Substance Category Reaction Severity Reaction type Status Date Reported Comments Source acetaminophe n-hydrocodon e Drug allergy Active One or More [facility] Facilities [facility] ADHESIVES Propensity to adverse reaction (finding) active 0 [facility] Adhesives Allergy to substance Active One or More A Facilities [facility] HYDROCODONE Drug allergy (disorder) active 0 [facility] Latex Drug allergy Active One or More A Facilities [facility] LATEX GLOVE Propensity to adverse reactions to drug (finding) active 0 [facility] VICODIN Propensity to adverse reactions to drug (finding) active 0 [facility] Immunizations Combined list of available immunizations from the Department of Defense and Veterans Affairs facilities. Immunization Series Date Given Administered By Site Reaction Lot Number CVX Code Drug Forcer Maker Status Comments Source COVID-19, mRNA, LNP-S, PF, 30 mcg/0.3 [place] Not Given COVID-19, mRNA, LNP-S, PF, 30 mcg/0.3 mL dose [facility] COVID-19, mRNA, LNP-S, PF, 30 mcg/0.3 [place] Not Given COVID-19, mRNA, LNP-S, PF, 30 mcg/0.3 mL dose [facility] COVID-19, mRNA, LNP-S, PF, 30 mcg/0.3 mL [place] Not Given COVID-19, mRNA, LNP-S, PF, 30 mcg/0.3 mL dose [facility] Vital Signs Combined list of inpatient and outpatient Vital Signs from [facility] and [facility], ranging from 12 months to all on record, depending upon the facility. Vital Sign Value Date Comments Source Systolic Blood Pressure 132 mm[Hg] 02/04/20 20:15:44 One or More [facility] Facilities [facility] Diastolic Blood Pressure 78 mm[Hg] 02/04/2020 20:15:44 One or More [facility] Facilities [facility] Procedures Combined list of: 1) Procedures from [...] Sex Representation Female 05/13/2023 Unknow n Organization Sexual Orientation Ambula tory Pharmacy Gender identity [...] Plan No data available for this section 06/30/2024 Ambulatory Pharmacy Functional Status Combined list of recent functional and cognitive assessments recorded at [facility] Functional [place] Measurement (FIM) Scale: 1 = Total Assistance (Subject = 0% +), 2 = Maximal Assistance (Subject = 25% +), 3 = Moderate Assistance (Subject = 50% +), 4 = Minimal Assistance (Subject = 75% +), 5 = Supervision, 6 = Modified [place] (Device), 7 = Complete [place] (Timely, Safely). Assessment Date/Time Source Assessment Type Assessment Skill Assessment Score Assessment Details No data available for this section
--- OUTSIDE RECORDS SUMMARY | 2024-06-30 15:17 | XMS_ITS | Data Portability ---
Author Organization [place] - [facility], [place] - [facility] - Address [address] [place] [address] Care Team Providers Care Day Treatment Clinician/Art Therapist Name Role Phone ROBIN PENALOZANN Primary Care [...] 6-8 weeks. This visit was conducted via [employer] website [employer] using both audio and video during the 2019 COVID-19 pandemic. Patient consented to non face to face service. Patient location: car Provider location: [facility] Start time: 1417 End time: 1424 Participants [...] This visit was conducted via telehealth website [employer] using both audio and video during the 2020. Patient consented to non face to face service. Patient location: home Provider location: [facility] Start time: 1424 End time: 1429 Participants [...] This visit was conducted via telehealth website [employer] using both audio and video during the 2019. Patient consented to non face to face service. Patient location: home Provider location: [facility] Start time: 1352 End time: 1401 Participants [...] mg capsule,del ayed release 2021 022 [facility], [address], [place], [address], 15:13:01 duloxetine 60 mg capsule,del ayed release 04/06/ 2022 04/06/2 022 [facility], [address], [place], [address], 2 15:12:56 hydroxyzine HCl 50 mg tablet 2021 022 [facility], [address], [place], [address], 2 15:12:57 hydroxyzine HCl 50 mg tablet 2020 021 [facility], [address], [place], [address], 15:27:21 duloxetine 30 mg capsule,del ayed release 2020 021 [facility], [address], [place], [address], 15:27:17 duloxetine 60 mg capsule,del ayed release 2020 021 [facility], [address], [place], [address], 15:27:17 Patient TargetsNo targets recorded. Patient InstructionsNo instructions recorded. Reason for Referral None Reported. Problems Name Problem SNOMED Code Status Onset Date Resolution Date Notes Provider Name and Address Organization Details Recorded Time Multiple environm ental allergie s Active scotty sepulveda [facility] 6 12:23:04 Irritabl e bowel syndrome 19337913 Active celiac disease Ab testing Neg 11/03; improved w/ Gluten free diet scotty sepulveda [facility] 6 12:23:04 Gastroes ophageal reflux disease 790239819 Active scotty sepulveda [facility] 6 12:23:04 Mixed anxiety and depressi ve disorder 073679395 Active hx of post depressi on and took lexapro but felt poor response , wellbutr in was very neg side effects (bad vivid dreams of her hurting her family); zoloft was very good response but had to stop when breast feeding bad w/d (didn't wean) scotty sepulveda [facility] 6 12:23:03 Migraine 58201984 [facility] 12:[facility] Hiatal hernia 08550174 [facility] 12:23:04 Hemorrho ids 07019408 Completed 12/11/2018 tx'd w/ anusol-H C Timbo Mckeon DO [address], [place], [address] , [facility] 9 17:20:55 Female stress incontin ence 98351016 [facility] 7 18:34:40 Pyelonep hritis 86824431 Completed 201412/11/2018 tx'd w/ Levaquin Timbo Mckeon DO [address], [place], [address] , [place] [facility] 9 17:19:51 Insomnia 532712254 [facility] 12:23:03 Fracture of hand 98954634 Completed 200912/11/2018 Left Timbo Mckeon DO [address], [place], [address] , [place] [facility] 9 17:20:04 Tinnitus 00515088 [facility] 12:23:04 Decrease d hearing 360492371 Completed 12/11/2018 Timbo Mckeon DO [address], [place], [address] , [place] [facility] 9 17:19:28 Reduced visual acuity 55729699 Active scotty banda null, [place] - [facility] 6 12:23:04 Sensorin eural hearing loss of bilatera l ears 834305606 Active Asha Bradford [address], [place], [address] , [place] [facility] 6 13:11:25 Menorrha obi 859658784 Active Margy Becker MD [address], [place], [address] , [place] [facility] 7 22:56:04 Blood in urine 98825259 Completed 12/11/2018 Timbo Mckeon DO [address], [place], [address] , [place] [facility] 9 17:19:34 Obesity 259333104 Active 2018 Timbo Mckeon DO [address], [place], [address] , [place] [facility] 9 01:18:28 Pregnanc y 29836441 Completed 201903/16/2020 Aliyahjanet White[place] null, [place] [facility] 0 12:25:25 Gestatio nal diabetes mellitus class A2 07545060 Active 2019 Aliyahjanet [place] null, [place] - [facility] 0 12:25:22 Gestatio nal diabetes mellitus class A2 62680297 Completed 2019 Aliyahjanet [place] null, [place] [facility] 0 12:25:22 Depressi ve disorder 25331635 Active 2020 Yaya Casanova DO [address], [place], [address] , [place] [facility] 1 15:54:10 Notes:hx plantar fasciitis; hx [...] Non-Stress Test completed Malka VANEGAS, Cali [address], [place], [address], [facility] 02/25/2020 13:33:54 02/18/20 20 Non-Stress Test completed Cali Ace MD [address], [place], [address], [facility] 02/18/2020 15:49:47 02/11/20 20 Non-Stress Test completed Cali Ace MD [address], [place], [address], [facility] 02/11/2020 15:03:18 01/12/20 20 Non-Stress Test completed Cali Ace MD [address], [place], [address], [place] [facility] 01/12/2020 18:21:04 12/19/19 19 Date of Last Pap Smear completed Timbo Mckeon DO [address], [place], [address], [facility] 12/24/2018 14:45:47 06/30/19 17 Ortho Corticosteroid Injection completed Vy Feliciano [facility] 06/29/2016 12:26:26 06/29/19 17 Cystoscopy (female) completed Chuck VANEGAS, [address], [place], [address], [facility] 06/28/2016 12:41:47 06/14/19 17 Bladder Scan completed Chuck VANEGAS, [address], [place], [address], [facility] 06/14/2016 13:22:58 04/05/20 16 Tympanometry completed Asha Bradford [address], [place], [address], [facility] 04/05/2016 13:11:04 04/05/20 16 Audiogram.old completed Asha Bradford [address], [place], [address], [facility] 04/05/2016 13:11:04 11/21/19 15 Other completed Georgi Moctezuma MD [address] [facility] [address], [place], [address], [facility] 01/13/2016 00:18:30 10/21/19 15 Other completed Georgi Moctezuma MD [address] [facility] [address], [place], [address], [facility] 01/13/2016 00:18:30 04/22/19 00 [place] Teeth Removed completed Georgi Moctezuma MD [address] [facility] [address], [place], [address], [facility] 01/12/2016 22:50:32 Oral surgery procedure completed Dena Argueta [facility] 04/06/2016 12:36:17 Imaging Results None recorded. Procedure Notes None recorded. Medical Equipment None Reported. Allergies Allergen ID Allergen Name Allergen Category Reaction Reaction Severity Criticality Documentation Date Start Date Code Code System Note Provider Name and Address Organization Details Recorded Time 106132 latex environme nt,medica tion hives moderate Not available 01/12/2016 82454 91 RxNorm Georgi Moctezuma MD [address] [facility] [address], [place], [address], [facility] 6 22:23:54 585503 acetamino phen / hydrocodo ne medicatio n other moderate Not available 04/05/2016 01039 2 RxNorm facia l numbn ess scotty banda null, [facility] 6 12:23:03 800792 Wellbutri n medicatio n Not available Not available Not available 06/18/2016 08702 RxNorm vivid dream s/fri ghten ing ; used w/ post partu m alivia Moctezuma MD, Georgi Costa [address], [place], [address], [facility] 7 11:10:40 462478 adhesive tape environme nt,medica tion Not available Not available Not available 03/16/2020 44122 UNK Aliyah Julian null, [facility] 0 12:21:24 Medications Name Sig Start [...] e 137 mcg (0.1 %) nasal spray [place] 1 spray every day by intranas al [...] Not Available Not Available Not Available FreeStyle Mcbrides Lite kit 03/16 completed Not Available Not [...] Smoking Status Never Smoker 12/11/18 Kathy Guallpa [facility], [place] - [facility] 12/11/2018 16:59:59 Do You Have An Advance Directive? 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 She Does Not Want To Be Maintained On Chronic Life Support If There Is Little Hope Of A Meaningful Recovery. - 12/18/2018 Information not available 12/18/2018 What Is Your Level Of Alcohol Consumption? None [email or web address] Information not available 10/27/2019 Are You Blind [...] COVID-19 While That Case Was Ill? No [email or web address] Information not available 07/30/2019 In The 14 Days Before Symptom Onset, Have You Had Close Contact With A Person Who Is Under Investigation For COVID-19 While That Person Was Ill? No [email or web address] Information not available 07/30/2019 Have You Been To An Area Known To Be High Risk For COVID-19? No [email or web address] Information not available 07/30/2019 What Type Of [...] not available 04/06/2016 Do You Have Any Latter-Day Beliefs That May Impact Your Health Care Decisions? No Does Not Follow Any Confucianism Information not available 12/11/2018 Did You Hurt Yourself When You Fell In The Last Year? No 12/11/18 Mh Information not available 04/06/2016 Education: 12 Information not available 12/11/2018 Marital Status Informatio n not available 01/12/2016 What Was The Date Of Your Most Recent Tobacco Screening? 09/12/2020 [email or web address] Information not available 09/15/2020 Are You Sexually [...] Details LastModified Time Father Myocardial infarction 55 [email or web address] Not available 04/25 18:44:02 Father Hypertensive disorder Not available 2016 18:44:02 Father Hyperlipidem ia [email or web address] Not available 2016 18:44:02 Paternal Aunt Malignant tumor of cervix [email or web address] Not available 2016 18:44:02 Paternal Aunt Dementia [email or web address] Not a vailable 04/25/2016 18:44:02 Mother Pyelonephrit [...] quadrivalent , PF 1 completed Maile sepulveda [facility] 03/15/2021 12:10:26 COVID-19, mRNA, LNP-S, PF, 30 mcg/0.3 mL dose 1 completed Savana sepulveda [facility] 08/30/2020 10:45:30 COVID-19, mRNA, LNP-S, PF, 30 mcg/0.3 mL dose 1 completed Savana sepulveda [facility] 08/30/2020 10:45:45 COVID-19, mRNA, LNP-S, PF, 30 mcg/0.3 mL dose 1 completed Maile sepulveda [facility] 03/15/2021 11:48:03 Influenza, split virus, trivalent, PF 8 cancelled patient objection Not Available [facility] 05/09/2019 02:33:30 Influenza, MDCK, quadrivalent , PF 8 completed Not Available [facility] 05/09/2019 03:23:32 Influenza, MDCK, quadrivalent , PF 9 completed Not Available [facility] 05/09/2019 03:01:50 Influenza, split virus, quadrivalent , PF 0 completed Savana sepulveda [facility] 01/05/2020 16:31:36 Tdap 3 completed Not Available [facility] 03/07/2020 09:20:47 Past Encounters Encounter ID Performer Location Encounter Start Date Encounter Closed Date Diagnosis/Indication Diagnosis SNOMED-CT Code Diagnosis ICD10 Code Diagnosis Note [id number] Anisha Mcclain [facility] [address] [place] [address] 01/12/2016 10:23:10 01/13/2016 12:09:34 Adult health examination 130980216 Z00.00 Hematology screening test 907763932 Z13.0 Hyperlipid emia screening 726066704 Z13.220 Endocrine/ metabolic screening 884860707 Z13.228 Mixed anxi ety and depressive disorder 814217101 F41.8 Tinnitus 10870038 H93.13 Decreased hearing 271386 001 H91.93 Reduced visual acuity 13 858505 H54.7 [facility] care 25687 5005 Z30.40 [id number] Lv lucas MD, Chandrakant Shipley [facility] [place] [address] [facility] [address] [place] [address] 04/05/2016 11:57:03 04/05/2016 13:17:18 Tinnitus 79602424 H93.13 At this time the patient has bilateral tinnitus, most likely due to her bilateral hearing loss. Please see plan as described above. FG Allergic r hinitis caused by pollen 77788486 J30.1 At this time the patient has [...] Sensorineu ral hearing loss of bilateral ears 737633392 H90.3 At this time the patient comes [...] will follow up as needed. FG Dizziness 874779116 R42 At this time the patient also complains of an off balance feeling with walking up and down stairs, but does not have any other problems. We will see if this improves on nasal steroid spray. She had no further questions and will follow up as needed for now. FG [id number] Asha Bradford [facility] [place] [address] [place] [address],[address] [place] [address] 04/05/2016 13:09:55 04/05/2016 13:12:09 Sensorineural hearing loss of bilateral ears 079739459 H90.3 [id number] Eugenio VANEGAS, Margy Valdivia [facility] [place] [address] [place] [address],[address] [place] [address] 04/06/2016 12:09:16 04/06/2016 13:47:10 Gynecologic examination 14837050 Z01.419 Screening for malignant neoplasm of cervix 241238886 Z12.4 Menorrhagia 001123026 N9 2.0 History of urinary tract infection 6323335197 107 Z87.440 Surveillan ce of contraception 345763897 Z30.40 [id number] Eugenio VANEGAS, Margy Valdivia [facility] [place] [address] [place] [address],[address] [place] [address] 04/25/2016 17:48:13 04/25/2016 19:53:53 Menorrhagia 461162760 N92.0 Blood in urine 49304331 R31.9 [id number] Rhianna VANEGAS, Georgi Costa [facility] [address],[facility] [place] [address] 05/08/2016 10:01:31 05/08/2016 12:08:23 Migraine 48305352 G43.909 Mixed anxi ety and depressive disorder 079210493 F41.8 Carpal davonte simon syndrome 28659552 G56.00 Insomnia 747057914 G47.0 0 Hand pain 35751568 M79.6 42 Vitamin D deficiency 347 59975 E55.9 [id number] Chuck VANEGAS, [facility] POS [address] [place] [address] 06/14/2016 12:22:40 06/14/2016 14:22:12 Microscopic hematuria 640162003 R31.21 she had 2-5 rbc on last ua done 04/26.17-has had full workup done in the past by another urologist and was negative but it was a while agozahida send urine for c/s and cytology-f ollow up for cystoscopy in office Renal colic 4446691 N23 she is having bilateral flank pain-previ ous urologist had checked a renal us but 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-jc l do ct scan for stone search prior to cystoscopy [id number] Rhianna VANEGAS, Georgi Costa [facility] [address],[place] [address] 06/18/2016 10:33:06 06/18/2016 12:04:21 Mixed anxiety and depressive disorder 380796180 F41.8 [id number] Chuck VANEGAS, [facility] POS [address] [place] [address] 06/28/2016 12:09:59 06/28/2016 12:45:15 Blood in urine 72688377 R31.9 her cystoscopy shows mild chronic bullous cystitis and a diverticul um, mild grade 1 trabeculat ions-will start on suppressiv e dose macrodanti n for one monthfollo w up in 3mos [id number] Donnell VANEGAS, Luis Soliz [facility] POS [address] [place] [address] 06/29/2016 11:24:40 07/13/2016 10:46:48 Hand pain 37088601 M79.643 Carpal davonte simon syndrome 31229299 G56.01 G56.02 [id number] Donnell VANEGAS, Luis Soliz [facility] [place] POS [address] [facility] [place] [address] 07/13/2016 11:07:42 07/13/2016 13:24:50 Pain in wrist 55060952 M25.531 Hand pain 42484899 M79.6 43 Carpal davonte simon syndrome 26906803 G56.01 G56.02 [id number] Rhianna VANEGAS, Georgi Costa [facility] [address],[place] [address] 07/16/2016 10:58:41 07/16/2016 11:42:57 Mixed anxiety and depressive disorder 087868239 F41.8 [id number] Donnell VANEGAS, Luis Reynaoli [facility] [place] [address] [place] [address] 08/13/2016 11:24:07 08/13/2016 12:23:07 Hand pain 69347369 M79.641 Pain in wrist 50366586 M 25.531 Carpal davonte simon syndrome 38218023 G56.01 G56.02 [id number] Donnell [facility]ANEGAS, [facility] [place] [address] [place] [address] 09/20/2016 11:45:56 09/20/2016 14:44:21 Pain in wrist 15476152 M25.531 M25.532 Hand pain 63012717 M79.6 41 Carpal davonte simon syndrome 39184513 G56.01 G56.02 [id number] Chuck VANEGAS, [facility] [place] POS [address] [facility] [place] [address] 10/04/2016 11:54:33 10/04/2016 12:31:12 Blood in urine 36814479 R31.9 she had history of microhemat uriawas given 3mos of suppressiv e dose abxhas not seen any blood in urinewill check ua/culture Bladder mu scle dysfunction - overactive 324278204 N32.81 she goes to bathroom every 2 hours during day and 2 times at night, occ urge incontinen cetrial of myrbetriq Female str ess incontinence 89072743 N39.3 -she does not require pads for the problemonl y occurs occasional ly with sneezingdi scussed treatment options- e will observe for now [id number] Donnell VANEGAS, Luis Soliz [facility] [address] [place] [address] 10/08/2016 09:47:26 10/08/2016 10:46:23 Pain in wrist 27813116 M25.531 M25.532 Hand pain 48741798 M79.6 41 Carpal davonte simon syndrome 96401945 G56.01 G56.02 [id number] Donnell VANEGAS, Luis Soliz [facility] POS [address] [facility] [facility] [place] [address] 11/09/2016 10:50:45 11/09/2016 12:33:48 Pain in wrist 67671528 M25.531 M25.532 Neck pain 85728617 M54.2 Hand pain 70232541 M79.6 41 Carpal davonte simon syndrome 51164749 G56.01 G56.02 [id number] Rhianna VANEGAS, Georgi [facility] [address],[place] [address] 11/21/2016 10:22:19 12/11/2016 16:16:59 Low back pain 943835661 M54.5 Snoring 03012515 R06.83 [id number] Rhianna VANEGAS, Georgi [facility] [address],[place] [address] 01/10/2017 16:20:44 01/10/2017 17:19:55 Pain in left knee 9958620276 20978 M25.562 Depressive disorder 3548 9007 F32.89 Fatigue 61175595 R53.83 [id number] Chuck VANEGAS, Vibha [facility] [address] [place] [address] 01/31/2017 11:27:16 01/31/2017 12:47:19 Bladder muscle dysfunction - overactive 333308059 N32.81 she goes to bathroom every 2 hours during day and 2 times at night, occ urge incontinen cemyrbetri q didn't help and wasn't covered Female str ess incontinence 21595257 N39.3 she is more bothered by it latelywoul d like to try physical therapyref erral to ati womens health given [id number] Tete Brian DO [facility]1 [address] [place] [address] 03/08/2017 11:55:53 03/13/2017 00:11:33 Fatigue 68042568 R53.83 --concerns for fatigue and insomnia. Have discussed sleep hygeine techniques with patient and reviewed the sleep study with her. Discussed weight loss and controllin g nasal congestion .--Pt will attempt these and follow up in the next 3 months. Allergic rhinitis 782572 04 J30.9 --nasal congestion Obesity 631540136 E66.9 --discusse d keeping track of her calories and aiming to eat about 500 calories less then what she normally eats.--Pt should f/u in 3 months on weight loss. [id number] Tete Brian DO [facility]#1 [address] [place] [address] 06/12/2017 10:00:03 06/12/2017 10:41:36 Active or passive immunization 689321030 Z23 Fatigue 31842866 R53.83 --cont use of breathe right strips and use nasal steroid. Allergic rhinitis 245179 04 J30.9 --nasal congestion continued. Increase cetirizine to 10 mg daily, but go back to 5 mg if she feels overly fatigued. Cont fluticason e and also start azelastine daily. Gastroesop hageal reflux disease 133363855 K21.9 [id number] Tete Brian DO [facility] AM#1 POS [address] [place] [address] 08/12/2017 10:54:36 08/12/2017 11:48:10 Obesity 521366229 E66.9 --discusse d weight loss and diet again Insomnia 041406561 G47.0 0 --pt instructed to take amitriptyl ine daily.--Co unselled on possible side effects. RTC if insomnia worsens Neck pain 44150645 M54.2 --negative adsons test, negative spurling sign. Muscle spasm in b/l neck.--Giv en exercises for neck. OTC tylenol and ibuprofen. RTC as needed. Migraine 64080586 G43.90 9 [id number] Tete Brian DO [facility] AM#1 POS [address] [place] [address] 02/11/2018 10:03:22 02/11/2018 10:50:04 Administration of influenza vaccine 86410799 Z23 Migraine 24645310 G43.90 9 --fioricet , amitriptyl ine and topiramate Insomnia 198130310 G47.0 0 --pt instructed to take amitriptyl ine daily.--Co unselled on possible side effects. RTC if insomnia worsens Environmental allergy 42 0467674 T78.49XA [id number] Shade VANEGAS, Nitin [facility] AM#1 POS [address] [place] [address] 04/02/2018 14:24:14 04/02/2018 15:10:58 Adult health examination 967957831 Z00.00 Migraine 84918799 G43.90 9 [id number] Timbo Mckeon DO [facility]#1 [address] [facility] [place] [address] 12/11/2018 16:42:55 12/11/2018 17:56:44 Bladder muscle dysfunction - overactive 867982922 N32.81 she has urinary incontinen ce and requesting a refill of the detrol, this has helped her in the past Body mass index 30+ - obesity 421554470 Z68.39 The patient's current weight is 209# with a height of 5' 1.25 and a correspond ing BMI (Body Mass Index) of 39.2. The medical definition of Obesity is a BMI greater than 30. Your [place] Body Weight is approximat malinda about 116#. [...] migraine prophylaxi s and weight loss. Migraine 26972566 G43.90 9 see the above plan [id number] Timbo Mckeon DO [facility]1 [address] [facility] [place] [address] 12/18/2018 09:57:19 12/18/2018 11:37:10 Adult health examination 926269911 Z00.00 Female Complete Physical Exam: I discussed [...] exercise, diet. Achieve/ma intain ideal body weight. [place] body weight is about 116 pounds,Adv anced directives : I gave the patient the form for LIVING WILL and health power of business attorney from the [place] [employer], the patient does want to be resuscitat ed but the patient does not want to be maintained on chronic life support if there is little hope of meaningful recovery. Active or passive immunization 588995961 Z23 Flu vaccine today, She is up to date with the Tdap Body mass index 30+ - obesity 205424816 Z68.38 The patient's current weight is 206.75# with a height of 5' 1.25 and a correspond ing BMI (Body Mass Index) of 38.7. The medical definition of Obesity is a BMI greater than 30. Your [place] Body Weight is approximat malinda about 116#. A reduced calorie, reduced carbohydra te weight reduction diet as well as increased activity.. She has lost about 3# since the last visit Hyperhidro sis of axilla [id number] L74.510 Drysol Jessie.ly to axilla once daily at first and then about three times per week, do not apply to fresh shaven skin. Elevated blood-pressure reading without diagnosis of hypertension 754422746 R03.0 I encouraged the patient to check the blood pressure and log the results. Please follow a reduced sodium diet and maintain/a chieve ideal body weight. [id number] Malka VANEGAS, Cali Carter [facility] - [facility] [place] [address] [place] [address] 07/30/2019 10:48:16 07/30/2019 12:44:41 test positive 374521513 Z32.01 Mild hyper emesis gravidarum 30667177 O21.0 Reviewed and hyperemesi s with patient. Reviewed diet at length. Questions answered. Recommend consider hold PNV. Start vitamin B6, unisom. Ob dating u/s in 1 week. f/u 1wk. Amenorrhea 93338559 N91. 2 Reviewed findings, positive test. [id number] Malka VANEGAS, Cali Carter [facility] - [facility] POS [address] [place] [address] 08/04/2019 11:31:16 08/04/2019 13:34:46 Disorder of menstruation 660913746 N92.6 Ob u/s reviewed, show viable iup consistent with LMP dating. Reviewed with patient. Routine an tenatal care 994976322 Z34.81 Z3A.08 Venereal d isease screening 694154217 Z11.3 Advanced m aternal age 112334662 O09.899 [id number] Malka VANEGAS, [facility] - [facility] [place] [facility] [address] [place] [address] 7 08/18/2019 11:25:44 08/18/2019 13:21:34 Advanced maternal age 929399986 O09.899 Routine an tenatal care 592891848 Z34.81 Z3A.08 Mild hyper emesis gravidarum 29609535 O21.0 mostly resolved [id number] Malka VANEGAS, [facility] [address] [place] [address] 7 09/22/2019 13:57:14 09/22/2019 14:40:34 Multigravida of advanced maternal age 333980463 O09.522 Z3A.15 [id number] Malka VANEGAS, [facility] [address] [place] [address] 7 10/20/2019 13:50:29 10/20/2019 15:17:10 Multigravida of advanced maternal age 430881679 O09.523 Z3A.19 [id number] Primitivo VANEGAS, Dickson [facility] - [facility] [place] POS [address] [place] [address] 10/27/2019 10:57:43 10/27/2019 14:41:15 Advanced maternal age 739212381 O09.899 expo sure to alcohol 850173729 O35.4XX9 expo sure to drug 628454357 O35.5XX9 Tolterodin e exposure [id number] Malka VANEGAS, [facility] [address] [place] [address] 7 11/24/2019 14:02:44 11/24/2019 15:47:27 Advanced maternal age 176928059 O09.899 Z3A.24 [id number] Malka VANEGAS, [facility] - [facility] [place] [facility] [address] [place] [address] 7 12/08/2019 13:27:12 12/08/2019 15:22:20 Gestational diabetes mellitus 73050057 O24.410 [id number] [facility] - [facility] [address] [place] [address] 12/17/2019 17:23:54 12/17/2019 17:24:51 [id number] Dickson Langford MD [facility] [address] [place] [address] 12/22/2019 08:47:44 12/22/2019 11:38:14 Glucose tolerance test outside reference range 754036303 R73.09 Gestationa l diabetes mellitus 21369564 O24.410 [id number] Malka VANEGAS, [facility] - [facility] [place] [facility] [address] [place] [address] 12/22/2019 15:50:31 12/23/2019 10:14:48 Gestational diabetes mellitus 61434602 O24.410 Advanced m aternal age 266619568 O09.899 Z3A.24 High risk care 939239626 O09.93 [id number] Malka VANEGAS, Cali [facility] - [facility] [place] [facility] [address] [place] [address] 01/05/2020 15:26:25 01/06/2020 12:30:32 Advanced maternal age 713774876 O09.899 Z3A.24 Gestationa l diabetes mellitus 69813391 O24.410 High risk care 682066139 O09.93 [id number]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 mild nose bleeds. No other c/o. Exam neg, TM neg. recommend saline mist. [facility] u/s sched 10/26. PTL signs and [...] in lbs Pre/Post Dialysis Refused With clothes 206.884138289788 BP Diastolic BP Location Tested BP Systolic BP Type 72 L arm 124 sitting Fetus Heart Rate Present A 150 Fetus Movement A Yes Comments Glucose and cbc labs today. Ingrown hair has been having some discomfort. Exam neg. 1hr gluc today. Reviewed [facility] u/s. PTL signs and symptoms reviewed. f/u 2wk. Flowsheet Date 12/08/2019 Jackson Score Blood Edema Fundus Height Fundus Units Glucose Ketones Leukocytes Nitrite Labor Signs Protein Cervic Dilation Cervic Effacement Cervic Station none neg Type Weight in lbs Pre/Post Dialysis Refused With clothes 208.656186652010 BP Diastolic BP Location Tested BP Systolic BP Type 70 L arm 118 sitting Fetus Heart Rate Present A 150 Fetus Movement A Yes Comments ob fu. No complains. Reviewe d 3hr gtt pos. refer to [facility], dietitian. Send glucometer, chem strips, lancets. [...] in lbs Pre/Post Dialysis Refused With clothes 207.188339674574 BP Diastolic BP Location Tested BP Systolic BP Type 72 L arm 124 sitting Fetus Heart Rate Present A 145 Fetus Movement A Yes Comments Pt c/o pain on hips when sle eping. Occ tightening muscle on ankle and foot. Denies other c/o. MFM u/s reviewed. BS fasting intermitt elevated, adjusting diet per housing manager. PTL signs and symptoms reviewed. f/u 2wk. Flowsheet Date 01/05/2020 Jackson Score Blood Edema Fundus Height Fundus Units Glucose Ketones Leukocytes Nitrite Labor Signs Protein Cervic Dilation Cervic Effacement Cervic Station 32 none neg Type Weight in lbs Pre/Post Dialysis Refused With clothes 205.111015850436 BP Diastolic BP Location Tested BP Systolic [...] in lbs Pre/Post Dialysis Refused With clothes 205.482776092930 BP Diastolic BP Location Tested BP Systolic [...] in lbs Pre/Post Dialysis Refused With clothes 205.649706542764 BP Diastolic BP Location Tested BP Systolic [...] in lbs Pre/Post Dialysis Refused With clothes 204.744096223967 BP Diastolic BP Location Tested BP Systolic [...] in lbs Pre/Post Dialysis Refused With clothes 205.914028193286 BP Diastolic BP Location Tested BP Systolic [...] in lbs Pre/Post Dialysis Refused With clothes 205.162223616859 BP Diastolic BP Location Tested BP Systolic [...] in lbs Pre/Post Dialysis Refused With clothes 201.538365172385 BP Diastolic BP Location Tested BP Systolic BP Type 80 L arm 120 sitting Fetus Heart Rate Present A 145 Fetus Movement A Yes Comments ob/fu - Pt was at [facility] on Saturday due to having contractions- [...] in lbs Pre/Post Dialysis Refused With clothes 192.346311567493 BP Diastolic BP Location Tested BP Systolic [...] 09/22/2019 Toxoplasmosis precautions (cats/raw meat) [email or web address] 09/22/2019 Confucianism [email or web address] 09/22/2019 Hospital choice [email or web address] 09/22/2019 Blood [...]
== END 2024-06-30 15:07 | disposition home or self-care (01) ==
LOC: HO.HOP 12:44
PROVIDERS: PCP Internal Medicine; Visit Provider Clinical Nurse Specialist Psychiatric/Mental Health
DX: F90.2 Attention-deficit hyperactivity disorder, combined type (principal); F41.1 Generalized anxiety disorder; F33.1 Major depressive disorder, recurrent, moderate
CPT/HCPCS: 99214

== ENCOUNTER → 2024-06-30 12:44 | Outpatient (BNVA) | payer OTHER, SELFPAY | PROVIDERS: PCP Internal Medicine; Visit Provider Clinical Nurse Specialist Psychiatric/Mental Health | DX: F90.2 Attention-deficit hyperactivity disorder, combined type (principal); F41.1 Generalized anxiety disorder; F33.1 Major depressive disorder, recurrent, moderate | CPT/HCPCS: 99212 ==

== ENCOUNTER 2024-07-01 13:44 | Outpatient (AMB) | payer OTHER, SELFPAY ==
--- NOTE | 2024-07-01 13:50 | MHC.OFFVIS ---
Intake Visit Reasons: PO RT CTR 06/10/24 AR wound check Intake Note: Alice is a 43 year old right hand dominant female who presents today for her first post operative appointment and wound check s/p Right Carpal Tunnel Release DOS: w/ Dr Barnard. Patient reports that she has one tablet left of Abx left as she missed a dose. Overall she is doing well, the incision is looking better but it still feels a bit raw. She continues to wash her hands in soap and water with no submerging. Allergies latex Adverse Reaction (Mild, Verified 07/01/24 13:50) hives HPI HPI PO RT CTR 06/10/24 AR wound check: Details: Alice is a 43 year old right hand dominant female who presents today for her first post operative appointment and wound check s/p Right Carpal Tunnel Release DOS: w/ Dr Barnard. Patient reports that she has one tablet left of Abx left as she missed a dose. Overall she is doing well, the incision is looking better but it still feels a bit raw. She continues to wash her hands in soap and water with no submerging. [facility] Medical History Nausea and vomiting in adult Acute respiratory disease Major depressive disorder, recurrent, severe with psychotic features Decreased hearing Tinnitus Reduced visual acuity Pyelonephritis (03/22/15) (08/04/19) Obesity (12/12/18) Migraine Menorrhagia Irritable bowel syndrome Insomnia Hiatal hernia Hemorrhoids Gastroesophageal reflux disease Fracture of hand (04/22/09) Female stress incontinence Blood in urine Severe carpal tunnel syndrome of right wrist Medical clearance for psychiatric admission Hypertriglyceridemia Positive Tinel's sign Positive Phalen maneuver Cervicalgia HTN (hypertension) Decreased hearing of both ears Environmental and seasonal allergies Tinnitus of both ears Knee pain Excessive daytime sleepiness Loud snoring Vitamin D deficiency Impaired fasting glucose Mixed dyslipidemia Morbid obesity Hiatal hernia with gastroesophageal reflux Family history of premature CAD Annual visit for general adult medical examination with abnormal findings Surgical History H/O endoscopy H/O wisdom tooth extraction Family History Father Substance use disorder Mental health disorder Alcoholism Myocardial infarction acute, Onset Age: 55 Depression Maternal Uncle Testicular cancer Social History Household Members: Family Household Members Other:: and 2 children Housing: House Do you presently have visiting nurse or other home services: No Alcohol intake: current Alcohol intake frequency: holidays/special occasions only Patient Tobacco Use Status: Never used Tobacco e-Cigarette/Vaping Use: Never Used Substance Use Type: Marijuana service: No Current occupational status: unemployed and other 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 Good APB muscle firing and good finger cross. Vascular: Capillary refill brisk. ROM: Patient can make a fist and extend all their digits. Skin: Well-approximated and well-healed incision site noted on the volar right wrist Erythema resolved General: No ecchymosis. No erythema or evidence of infection. Assessment & Plan Assessment & Plan (1) Severe carpal tunnel syndrome of right wrist: Code(s): G56.01 - Carpal tunnel syndrome, right upper limb Category: Medical Plan 1. Status post right carpal tunnel release DOS 05/1924 Patient appears to be well postoperatively Patient is about course At this time, patient was informed that any signs of infection has resolved, and she require no further acute follow-up with us Patient was amenable to this plan Patient will follow-up as needed with any acute concerns Coding Level of Care Code Global (81288) Diagnoses Severe carpal tunnel syndrome of right wrist G56.01
--- OUTSIDE RECORDS SUMMARY | 2024-07-01 16:13 | XMS_ITS | Continuity of Care Document ---
Author Name [facility] Organization 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 Unavailable Unavailable Medications Combined list of outpatient [...] CITRON PHARMA L, 500 ea. BOTTLE Active [id number] 4 2023 10 Pharmac y Data Transac tion Service Facilit y Benzonatate ([employer]) 100 CAPSULE in 1 BOTTLE Active [id number] 06/26/19 2 4 2023 60 Pharmac y Data Transac tion Service Facilit y DIAZEPAM (DIAZEPAM), 5MG, TABLET, ORAL, IVAX PHARMACEUT, 100 ea. BOTTLE Active [id number] 4 2023 10 Pharmac y Data Transac tion Service Facilit y DULOXETINE HCL (DULOXETINE HCL), 60 MG, CAPSULE DR, ORAL, BRECKENRIDG E, 90 ea. BOTTLE Active [id number] 4 2023 90 Pharmac y Data Transac tion Service Facilit y DULOXETINE HCL (DULOXETINE HCL), 60 MG, CAPSULE DR, ORAL, BRECKENRIDG E, 90 ea. BOTTLE Active [id number] 4 2023 90 Pharmac y Data Transac tion Service Facilit y LIDOCAINE (lidocaine) , 5 %, ADH. PATCH, TOPICAL, AMNEAL PHARMACE, 30 ea. BOX Active [id number] 4 2023 30 Pharmac y Data Transac tion Service Facilit y LISINOPRIL (lisinopril ), 10 MG, TABLET, ORAL, LUPIN PHARMACEU, 1000 ea. BOTTLE Active [id number] 4 2023 30 Pharmac y Data Transac tion Service Facilit y LISINOPRIL (lisinopril ), 10 MG, TABLET, ORAL, LUPIN PHARMACEU, 1000 ea. BOTTLE Active [id number] 4 2023 30 Pharmac y Data Transac tion Service Facilit y LISINOPRIL (LISINOPRIL ), 5MG, TABLET, ORAL, LUPIN PHARMACEU, 1000 ea. BOTTLE Active [id number] 3 2022 30 Pharmac y Data Transac tion Service Facilit y LISINOPRIL (LISINOPRIL ), 5MG, TABLET, ORAL, LUPIN PHARMACEU, 1000 ea. BOTTLE Active [id number] 4 2023 30 Pharmac y Data Transac tion Service Facilit y LISINOPRIL- HCTZ (LISINOPRIL /HYDROCHLOR OTHIAZIDE), 10-12.5MG, TABLET, ORAL, LUPIN PHARMACEU, 100 ea. BOTTLE Active [id number] 4 2023 30 Pharmac y Data Transac tion Service Facilit y LISINOPRIL- HCTZ (LISINOPRIL /HYDROCHLOR OTHIAZIDE), 10-12.5MG, TABLET, ORAL, LUPIN PHARMACEU, 100 ea. BOTTLE Active [id number] 4 2023 30 Pharmac y Data Transac tion Service Facilit y SULFAMETHOX AZOLE-TRIME THOPRIM (sulfametho xazole/trim ethoprim), 800-160 MG, TABLET, ORAL, RISING PHARM, 100 ea. BOTTLE Active [id number] 4 2023 14 Pharmac y Data Transac tion Service Facilit y Allergies, Adverse Reactions, Alerts Combined list of allergies from Department of Defense and Veterans Affairs facilities. It does not include entries that were removed or entered in error. Substance Category Reaction Severity Reaction type Status Date Reported Comments Source acetaminophe n-hydrocodon e Drug allergy Active One or More [facility] Facilities MULTIMEDIA TEACHER ADHESIVES Propensity to adverse reaction (finding) active 0 [facility] Adhesives Allergy to substance Active One or More A Facilities MULTIMEDIA TEACHER HYDROCODONE Drug allergy (disorder) active 0 [facility] Latex Drug allergy Active One or More A Facilities MULTIMEDIA TEACHER LATEX GLOVE Propensity to adverse reactions to drug (finding) active 0 [facility] VERASLL [facility] VICODIN Propensity to adverse reactions to drug (finding) active 0 [facility] JOSS [facility] Immunizations Combined list of available immunizations from the Department of Defense and Veterans Affairs facilities. Immunization Series Date Given Administered By Site Reaction Lot Number CVX Code Drug Fermentation Scientist Status Comments Source COVID-19, mRNA, LNP-S, PF, 30 mcg/0.3 mL dose 2020 [email or web address] [place] (PFR) Not Given COVID-19, mRNA, LNP-S, PF, 30 mcg/0.3 mL dose DoD COVID-19, mRNA, LNP-S, PF, 30 mcg/0.3 mL dose 2020 [email or web address] [place] (PFR) Not Given COVID-19, mRNA, LNP-S, PF, 30 mcg/0.3 mL dose DoD COVID-19, mRNA, LNP-S, PF, 30 mcg/0.3 mL dose 2020 [email or web address] [place] (PFR) Not Given COVID-19, mRNA, LNP-S, PF, 30 mcg/0.3 mL dose DoD Vital Signs Combined list of inpatient and outpatient Vital Signs from Department of Defense and Veterans Affairs, ranging from 12 months to all on record, depending upon the facility. Vital Sign Value Date Comments Source Systolic Blood Pressure 132 mm[Hg] 02/04/20 20:15:44 One or More [facility] Facilities MULTIMEDIA TEACHER Diastolic Blood Pressure 78 mm[Hg] 02/04/2020 20:15:44 One or More [facility] Facilities MULTIMEDIA TEACHER Procedures Combined list of: 1) Procedures from [...] Plan No data available for this section 07/01/2024 Ambulatory Pharmacy Functional Status Combined list of recent functional and cognitive assessments recorded at Department of Defense and Veterans Affairs (VA).VA Functional Justice Measurement (FIM) Scale: 1 = Total Assistance (Subject = 0% +), 2 = Maximal Assistance (Subject = 25% +), 3 = Moderate Assistance (Subject = 50% +), 4 = Minimal Assistance (Subject = 75% +), 5 = Supervision, 6 = Modified Justice (Device), 7 = Complete Justice (Timely, Safely). Assessment Date/Time Source Assessment Type Assessment Skill Assessment Score Assessment Details No data available for this section
--- OUTSIDE RECORDS SUMMARY | 2024-07-01 16:14 | XMS_ITS | Data Portability ---
Author Organization [place] - [facility], [place] - [facility] - Address [address] [place] [address] Care Team Providers Care Naturalist Name Role Phone ROBIN PENALOZANN Primary Care [...] 6-8 weeks. This visit was conducted via KeepFu website yetu using both audio and video during the 2019 COVID-19 pandemic. Patient consented to non face to face service. Patient location: car Provider location: [facility] Start time: 1417 End time: [...] This visit was conducted via telehealth website yetu using both audio and video during the 2020. Patient consented to non face to face service. Patient location: home Provider location: [facility] Start time: 1424 End time: [...] This visit was conducted via telehealth website yetu using both audio and video during the 2019. Patient consented to non face to face service. Patient location: home Provider location: [facility] Start time: 1352 End time: [...] mg capsule,del ayed release 2021 022 [id number], [address], [place], [address], 15:13:01 duloxetine 60 mg capsule,del ayed release 04/06/ 2022 04/06/2 022 [id number], [address], [place], [address], 2 15:12:56 hydroxyzine HCl 50 mg tablet 2021 022 [id number], [address], [place], [address], 2 15:12:57 hydroxyzine HCl 50 mg tablet 2020 021 [facility], [address], [place], [address], 15:27:21 duloxetine 30 mg capsule,del ayed release 2020 021 [facility], [address], [place], [address], 15:27:17 duloxetine 60 mg capsule,del ayed release 2020 021 [facility], [address], [place], [address], 15:27:17 Patient TargetsNo targets recorded. Patient InstructionsNo instructions recorded. Reason for Referral None Reported. Problems Name Problem SNOMED Code Status Onset Date Resolution Date Notes Provider Name and Address Organization Details Recorded Time Multiple environm ental allergie s Active scotty sepulveda [facility] 6 12:23:04 Irritabl e bowel syndrome 75942112 Active celiac disease Ab testing Neg 11/03; improved w/ Gluten free diet scotty sepulveda [facility] 6 12:23:04 Gastroes ophageal reflux disease 687008195 Active scotty sepulveda [facility] 6 12:23:04 Mixed anxiety and depressi ve disorder 001366329 Active hx of post depressi on and took lexapro but felt poor response , wellbutr in was very neg side effects (bad vivid dreams of her hurting her family); zoloft was very good response but had to stop when breast feeding bad w/d (didn't wean) scotty sepulveda [facility] 6 12:23:03 Migraine 90222055 [facility] 12:23:03 Hiatal hernia 38471368 [facility] 6 12:23:04 Hemorrho ids 36199227 Completed 12/11/2018 tx'd w/ anusol-H C Timbo Mckeon DO [address], [place], [address] , [facility] 9 17:20:55 Female stress incontin ence 67159931 Active Madelyn [facility] 7 18:34:40 Pyelonep hritis 95411326 Completed 201412/11/2018 tx'd w/ Levaquin Timbo Mckeon DO [address], [place], [address] , [place] [facility] 9 17:19:51 Insomnia 400800610 [facility] 6 12:23:03 Fracture of hand 88559666 Completed 200912/11/2018 Left Timbo Mckeon DO [address], [place], [address] , [place] [facility] 9 17:20:04 Tinnitus 79003075 [facility] 6 12:23:04 Decrease d hearing 651106150 Completed 12/11/2018 Timbo Mckeon DO [address], [place], [address] , [place] [facility] 9 17:19:28 Reduced visual acuity 05141265 Active scotty banda null, [place] [facility] 6 12:23:04 Sensorin eural hearing loss of bilatera l ears 052322573 Active Asha Bradford [address], [place], [address] , [place] [facility] 6 13:11:25 Menorrha obi 199698076 Active Margy Becker MD [address], [place], [address] , [place] [facility] 7 22:56:04 Blood in urine 61204112 Completed 12/11/2018 Timbo Mckeon DO [address], [place], [address] , [place] [facility] 9 17:19:34 Obesity 639012855 Active 2018 Timbo Mckeon DO [address], [employer], [address] , [place] [facility] 9 01:18:28 Pregnanc y 00364531 Completed 201903/16/2020 Aliyahjanet Whitehead null, [place] [facility] 0 12:25:25 Gestatio nal diabetes mellitus class A2 36898053 Active 2019 Aliyahjanet White[place] null[place] [facility] 0 12:25:22 Gestatio nal diabetes mellitus class A2 48372768 Completed 2019 Aliyahjanet Whtiehead null, [place] [facility] 0 12:25:22 Depressi ve disorder 56594457 Active 2020 Yaya Casanova DO [address], [place], [address] , [place] [facility] 1 15:54:10 Notes:hx plantar fasciitis; hx [...] Non-Stress Test completed Malka VANEGAS, [address], [place], [address], [facility] 02/25/2020 13:33:54 02/18/20 20 Non-Stress Test completed Cali Ace MD [address], [place], [address], [facility] 02/18/2020 15:49:47 02/11/20 20 Non-Stress Test completed Cali Ace MD [address], [place], [address], [facility] 02/11/2020 15:03:18 01/12/20 20 Non-Stress Test completed Cali Ace MD [address], [place], [address], [place] [facility] 01/12/2020 18:21:04 12/19/19 19 Date of Last Pap Smear completed Timbo Mckeon DO [address], [place], [address], [facility] 12/24/2018 14:45:47 06/30/19 17 Ortho Corticosteroid Injection completed Vy Feliciano [facility] 06/29/2016 12:26:26 06/29/19 17 Cystoscopy (female) completed Chuck VANEGAS, [address], [place], [address], [facility] 06/28/2016 12:41:47 06/14/19 17 Bladder Scan completed Chuck VANEGAS, [address], [place], [address], [facility] 06/14/2016 13:22:58 04/05/20 16 Tympanometry completed Asha Bradford [address], [place], [address], [facility] 04/05/2016 13:11:04 04/05/20 16 Audiogram.old completed Asha Bradford [address], [place], [address], [facility] 04/05/2016 13:11:04 11/21/19 15 Other completed Georgi Moctezuma MD [address], [place], [address], [facility] 01/13/2016 00:18:30 10/21/19 15 Other completed Georgi Moctezuma MD [address], [place], [address], [facility] 01/13/2016 00:18:30 04/22/19 00 [place] Teeth Removed completed Georgi Moctezuma MD [address], [place], [address], [facility] 01/12/2016 22:50:32 Oral surgery procedure completed Dena Argueta [facility] 04/06/2016 12:36:17 Imaging Results None recorded. Procedure Notes None recorded. Medical Equipment None Reported. Allergies Allergen ID Allergen Name Allergen Category Reaction Reaction Severity Criticality Documentation Date Start Date Code Code System Note Provider Name and Address Organization Details Recorded Time 567801 latex environme nt,medica tion hives moderate Not available 01/12/2016 12140 91 RxNorm Georgi Moctezuma MD [address], [place], [address], [facility] 6 22:23:54 927190 acetamino phen / hydrocodo ne medicatio n other moderate Not available 04/05/2016 80536 2 RxNorm facia l numbn ess scotty banda null, [facility] 6 12:23:03 254000 Wellbutri n medicatio n Not available Not available Not available 06/18/2016 47320 RxNorm vivid dream s/fri ghten ing ; used w/ post partu m alivia Moctezuma MD, Georgi Costa [address], [place], [address], [facility] 7 11:10:40 196294 adhesive tape environme nt,medica tion Not available Not available Not available 03/16/2020 56223 UNK Aliyah Julian null, [facility] 0 12:21:24 Medications Name Sig Start [...] e 137 mcg (0.1 %) nasal spray [place] 1 spray every day by intranas al [...] Not Available Not Available Not Available FreeStyle [place] Lite kit 03/16 completed Not Available Not [...] Smoking Status Never Smoker 12/11/18 Kathy Guallpa [facility], [place] [facility] 12/11/2018 16:59:59 Do You Have An Advance Directive? No I Gave Her The Form For The Living Will And Health Power Of Rheologist, She Does Want To Be Resuscitated. She Does Not Want To Be Maintained On Chronic Life Support If There Is Little Hope Of A Meaningful Recovery. - 12/18/2018 Information not available 12/18/2018 What Is Your Level Of Alcohol Consumption? None [email or web address] Information not available 10/27/2019 Are You Blind [...] COVID-19 While That Case Was Ill? No [email or web address] Information not available 07/30/2019 In The 14 Days Before Symptom Onset, Have You Had Close Contact With A Person Who Is Under Investigation For COVID-19 While That Person Was Ill? No [email or web address] Information not available 07/30/2019 Have You Been To An Area Known To Be High Risk For COVID-19? No [email or web address] Information not available 07/30/2019 What Type Of [...] not available 04/06/2016 Do You Have Any [employer] Beliefs That May Impact Your Health Care Decisions? No Does Not Follow Any Worship Information not available 12/11/2018 Did You Hurt [...] Details LastModified Time Father Myocardial infarction 55 [email or web address] Not available 04/25 18:44:02 Father Hypertensive disorder [email or web address] Not available 2016 18:44:02 Father Hyperlipidem ia [email or web address] Not available 2016 18:44:02 Paternal Aunt Malignant tumor of cervix [email or web address] Not available 2016 18:44:02 Paternal Aunt Dementia [email or web address] Not a vailable 04/25/2016 18:44:02 Mother Pyelonephrit [...] quadrivalent , PF 1 completed Maile sepulveda [facility] 03/15/2021 12:10:26 COVID-19, mRNA, LNP-S, PF, 30 mcg/0.3 mL dose 1 completed Savana sepulveda [facility] 08/30/2020 10:45:30 COVID-19, mRNA, LNP-S, PF, 30 mcg/0.3 mL dose 1 completed Savana sepulveda [facility] 08/30/2020 10:45:45 COVID-19, mRNA, LNP-S, PF, 30 mcg/0.3 mL dose 1 completed Maile sepulveda [facility] 03/15/2021 11:48:03 Influenza, split virus, trivalent, PF 8 cancelled patient objection Not Available [facility] 05/09/2019 02:33:30 Influenza, MDCK, quadrivalent , PF 8 completed Not Available [facility] 05/09/2019 03:23:32 Influenza, MDCK, quadrivalent , PF 9 completed Not Available [facility] 05/09/2019 03:01:50 Influenza, split virus, quadrivalent , PF 0 completed Savana sepulveda [facility] 01/05/2020 16:31:36 Tdap 3 completed Not Available [facility] 03/07/2020 09:20:47 Past Encounters Encounter ID Performer Location Encounter Start Date Encounter Closed Date Diagnosis/Indication Diagnosis SNOMED-CT Code Diagnosis ICD10 Code Diagnosis Note [id number] Anisha Mcclain [facility] [address] [place] [address] 01/12/2016 10:23:10 01/13/2016 12:09:34 Adult health examination 778633102 Z00.00 Hematology screening test 799603154 Z13.0 Hyperlipid emia screening 356461283 Z13.220 Endocrine/ metabolic screening 709959707 Z13.228 Mixed anxi ety and depressive disorder 561044766 F41.8 Tinnitus 02934428 H93.13 Decreased hearing 678494 001 H91.93 Reduced visual acuity 13 436775 H54.7 [facility] care 16063 5005 Z30.40 [id number] Lv lucas MD, Chandrakant Shipley [facility] POS [address] [facility] [address] [place] [address] 04/05/2016 11:57:03 04/05/2016 13:17:18 Tinnitus 47525616 H93.13 At this time the patient has bilateral tinnitus, most likely due to her bilateral hearing loss. Please see plan as described above. FG Allergic r hinitis caused by pollen 43940899 J30.1 At this time the patient has [...] Sensorineu ral hearing loss of bilateral ears 247304931 H90.3 At this time the patient comes [...] will follow up as needed. FG Dizziness 036683694 R42 At this time the patient also complains of an off balance feeling with walking up and down stairs, but does not have any other problems. We will see if this improves on nasal steroid spray. She had no further questions and will follow up as needed for now. FG [id number] Asha Bradford [facility] POS [address] [place] [address],[address] [place] [address] 04/05/2016 13:09:55 04/05/2016 13:12:09 Sensorineural hearing loss of bilateral ears 646037880 H90.3 [id number] Eugenio VANEGAS, Margy Valdivia [facility] [place] [address] [place] [address],[address] [facility] [place] [address] 04/06/2016 12:09:16 04/06/2016 13:47:10 Gynecologic examination 18760233 Z01.419 Screening for malignant neoplasm of cervix 425911585 Z12.4 Menorrhagia 776643984 N9 2.0 History of urinary tract infection 3707927514 107 Z87.440 Surveillan ce of contraception 378997923 Z30.40 [id number] Eugenio VANEGAS, Margy Valdivia [facility] - [facility] [place] POS [address] [place] [address],[address] [place] [address] 04/25/2016 17:48:13 04/25/2016 19:53:53 Menorrhagia 604343955 N92.0 Blood in urine 20191383 R31.9 [id number] Rhianna VANEGAS, Georgi Costa [facility] POS [address],[facility] [place] [address] 05/08/2016 10:01:31 05/08/2016 12:08:23 Migraine 06940573 G43.909 Mixed anxi ety and depressive disorder 329739701 F41.8 Carpal davonte simon syndrome 87196017 G56.00 Insomnia 968358217 G47.0 0 Hand pain 81710931 M79.6 42 Vitamin D deficiency 347 23142 E55.9 [id number] Chuck VANEGAS, [facility] - UROLOGY [facility] POS [address] [place] [address] 06/14/2016 12:22:40 06/14/2016 14:22:12 Microscopic hematuria 167259419 R31.21 she had 2-5 rbc on last ua done 04/26.17-has had full workup done in the past by another urologist and was negative but it was a while agozahida send urine for c/s and cytology-f ollow up for cystoscopy in office Renal colic 3207506 N23 she is having bilateral flank pain-previ ous urologist had checked a renal us but this may not peanut 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-jc l do ct scan for stone search prior to cystoscopy [id number] Rhianna VANEGAS, Georgi Costa [facility] [address],[place] [address] 06/18/2016 10:33:06 06/18/2016 12:04:21 Mixed anxiety and depressive disorder 045337075 F41.8 [id number] Chuck VANEGAS, [facility] - UROLOGY [facility] POS [address] [place] [address] 06/28/2016 12:09:59 06/28/2016 12:45:15 Blood in urine 29265126 R31.9 her cystoscopy shows mild chronic bullous cystitis and a diverticul um, mild grade 1 trabeculat ions-will start on suppressiv e dose macrodanti n for one monthfollo w up in 3mos [id number] Donnell VANEGAS, Luis Soliz [facility] - ORTHOPEDI CSURGERY [facility] POS [address] [place] [address] 06/29/2016 11:24:40 07/13/2016 10:46:48 Hand pain 83652527 M79.643 Carpal davonte simon syndrome 29617882 G56.01 G56.02 [id number] Donnell VANEGAS, Luis Soliz [facility] [place] POS [address] [place] [address] 07/13/2016 11:07:42 07/13/2016 13:24:50 Pain in wrist 99969857 M25.531 Hand pain 27271510 M79.6 43 Carpal davonte simon syndrome 19354609 G56.01 G56.02 [id number] Rhianna VANEGAS, Georgi Costa [facility] [place] [facility] POS [address],[place] [address] 07/16/2016 10:58:41 07/16/2016 11:42:57 Mixed anxiety and depressive disorder 525600848 F41.8 [id number] Donnell VANEGAS, Luis Reynaoli [facility] - ORTHOPEDI CSURGERY [place] [address] [place] [address] 08/13/2016 11:24:07 08/13/2016 12:23:07 Hand pain 64088071 M79.641 Pain in wrist 35453407 M 25.531 Carpal davonte simon syndrome 54886713 G56.01 G56.02 [id number] Donnell VANEGAS, [facility] [place] [address] [place] [address] 09/20/2016 11:45:56 09/20/2016 14:44:21 Pain in wrist 23149605 M25.531 M25.532 Hand pain 61775019 M79.6 41 Carpal davonte simon syndrome 47977201 G56.01 G56.02 [id number] Chuck VANEGAS, [facility] - UROLOGY [facility] [place] POS [address] [place] [address] 10/04/2016 11:54:33 10/04/2016 12:31:12 Blood in urine 03317166 R31.9 she had history of microhemat uriawas given 3mos of suppressiv e dose abxhas not seen any blood in urinewill check ua/culture Bladder mu scle dysfunction - overactive 586484247 N32.81 she goes to bathroom every 2 hours during day and 2 times at night, occ urge incontinen cetrial of myrbetriq Female str ess incontinence 16137289 N39.3 -she does not require pads for the problemonl y occurs occasional ly with sneezingdi scussed treatment options- e will observe for now [id number] Donnell VANEGAS, Luis Soliz [facility] [address] [place] [address] 10/08/2016 09:47:26 10/08/2016 10:46:23 Pain in wrist 93081857 M25.531 M25.532 Hand pain 50111568 M79.6 41 Carpal davonte simon syndrome 95348330 G56.01 G56.02 [id number] Donnell VANEGAS, Luis Soliz [facility] - ORTHOPEDI CSURGERY [facility] [address] [facility] [place] [address] 11/09/2016 10:50:45 11/09/2016 12:33:48 Pain in wrist 01553941 M25.531 M25.532 Neck pain 71780783 M54.2 Hand pain 92081355 M79.6 41 Carpal davonte simon syndrome 08052725 G56.01 G56.02 [id number] Rhianna VANEGAS, Georgi [facility] [address],[place] [address] 11/21/2016 10:22:19 12/11/2016 16:16:59 Low back pain 358355758 M54.5 Snoring 31748957 R06.83 [id number] Rhianna VANEGAS, Georgi [facility] AM [address],[place] [address] 01/10/2017 16:20:44 01/10/2017 17:19:55 Pain in left knee 9542060686 00973 M25.562 Depressive disorder 3548 9007 F32.89 Fatigue 96831081 R53.83 [id number] Chuck VANEGAS, Vibha [facility] - UROLOGY [facility] [address] [place] [address] 01/31/2017 11:27:16 01/31/2017 12:47:19 Bladder muscle dysfunction - overactive 772419848 N32.81 she goes to bathroom every 2 hours during day and 2 times at night, occ urge incontinen cemyrbetri q didn't help and wasn't covered Female str ess incontinence 08121862 N39.3 she is more bothered by it latelywoul d like to try physical therapyref erral to ati womens health given [id number] Tete Brian DO [facility] Maddie [facility] AM#1 [address] [place] [address] 03/08/2017 11:55:53 03/13/2017 00:11:33 Fatigue 50099769 R53.83 --concerns for fatigue and insomnia. Have discussed sleep hygeine techniques with patient and reviewed the sleep study with her. Discussed weight loss and controllin g nasal congestion .--Pt will attempt these and follow up in the next 3 months. Allergic rhinitis 663577 04 J30.9 --nasal congestion Obesity 841509222 E66.9 --discusse d keeping track of her calories and aiming to eat about 500 calories less then what she normally eats.--Pt should f/u in 3 months on weight loss. [id number] Tete Brian DO [facility] AM#1 [address] [place] [address] 06/12/2017 10:00:03 06/12/2017 10:41:36 Active or passive immunization 731811073 Z23 Fatigue 16654968 R53.83 --cont use of breathe right strips and use nasal steroid. Allergic rhinitis 871368 04 J30.9 --nasal congestion continued. Increase cetirizine to 10 mg daily, but go back to 5 mg if she feels overly fatigued. Cont fluticason e and also start azelastine daily. Gastroesop hageal reflux disease 610813198 K21.9 [id number] Tete Brian DO [facility] AM#[address] [place] [address] 08/12/2017 10:54:36 08/12/2017 11:48:10 Obesity 984188887 E66.9 --discusse d weight loss and diet again Insomnia 339396055 G47.0 0 --pt instructed to take amitriptyl ine daily.--Co unselled on possible side effects. RTC if insomnia worsens Neck pain 38306617 M54.2 --negative adsons test, negative spurling sign. Muscle spasm in b/l neck.--Giv en exercises for neck. OTC tylenol and ibuprofen. RTC as needed. Migraine 38104728 G43.90 9 [id number] Tete Brian DO [facility] AM#[address] [place] [address] 02/11/2018 10:03:22 02/11/2018 10:50:04 Administration of influenza vaccine 80950776 Z23 Migraine 35965809 G43.90 9 --fioricet , amitriptyl ine and topiramate Insomnia 562502466 G47.0 0 --pt instructed to take amitriptyl ine daily.--Co unselled on possible side effects. RTC if insomnia worsens Environmental allergy 42 3258279 T78.49XA [id number] Shade VANEGAS, Nitin [facility] AM#[address] [place] [address] 04/02/2018 14:24:14 04/02/2018 15:10:58 Adult health examination 286153849 Z00.00 Migraine 59773852 G43.90 9 [id number] Timbo Mckeon DO [facility]#1 [address] [facility] [place] [address] 12/11/2018 16:42:55 12/11/2018 17:56:44 Bladder muscle dysfunction - overactive 285424549 N32.81 she has urinary incontinen ce and requesting a refill of the detrol, this has helped her in the past Body mass index 30+ - obesity 747034941 Z68.39 The patient's current weight is 209# with a height of 5' 1.25 and a correspond ing BMI (Body Mass Index) of 39.2. The medical definition of Obesity is a BMI greater than 30. Your [place] Body Weight is approximat malinda about 116#. [...] migraine prophylaxi s and weight loss. Migraine 94383269 G43.90 9 see the above plan [id number] Timbo Mckeon DO [facility]#1 [address] [facility] [place] [address] 12/18/2018 09:57:19 12/18/2018 11:37:10 Adult health examination 268681143 Z00.00 Female Complete Physical Exam: I discussed [...] exercise, diet. Achieve/ma intain ideal body weight. [place] body weight is about 116 pounds,Adv anced directives : I gave the patient the form for LIVING WILL and health power of instructional technology specialist from the [place] [employer], the patient does want to be resuscitat ed but the patient does not want to be maintained on chronic life support if there is little hope of meaningful recovery. Active or passive immunization 441581122 Z23 Flu vaccine today, She is up to date with the Tdap Body mass index 30+ - obesity [id number] Z68.38 The patient's current weight is 206.75# with a height of 5' 1.25 and a correspond ing BMI (Body Mass Index) of 38.7. The medical definition of Obesity is a BMI greater than 30. Your [place] Body Weight is approximat malinda about 116#. A reduced calorie, reduced carbohydra te weight reduction diet as well as increased activity.. She has lost about 3# since the last visit Hyperhidro sis of axilla 248262091 L74.510 Drysol Jessie.ly to axilla once daily at first and then about three times per week, do not apply to fresh shaven skin. Elevated blood-pressure reading without diagnosis of hypertension 134223269 R03.0 I encouraged the patient to check the blood pressure and log the results. Please follow a reduced sodium diet and maintain/a chieve ideal body weight. [id number] Malka VANEGAS, Cali Carter [facility] - INSURANCE SALES ASSISTANT [facility] POS [address] [place] [address] 07/30/2019 10:48:16 07/30/2019 12:44:41 test positive 664992659 Z32.01 Mild hyper emesis gravidarum 64145818 O21.0 Reviewed and hyperemesi s with patient. Reviewed diet at length. Questions answered. Recommend consider hold PNV. Start vitamin B6, unisom. Ob dating u/s in 1 week. f/u 1wk. Amenorrhea 47076505 N91. 2 Reviewed findings, positive test. [id number] Malka VANEGAS, Cali Carter [facility] - INSURANCE SALES ASSISTANT [facility] STREAM POS [address] [place] [address] 08/04/2019 11:31:16 08/04/2019 13:34:46 Disorder of menstruation 819294812 N92.6 Ob u/s reviewed, show viable iup consistent with LMP dating. Reviewed with patient. Routine an tenatal care 002068628 Z34.81 Z3A.08 Venereal d isease screening 957802530 Z11.3 Advanced m aternal age 455045850 O09.899 [id number] Malka VANEGAS, [facility] - INSURANCE SALES ASSISTANT [facility] POS [address] [place] [address] 7 08/18/2019 11:25:44 08/18/2019 13:21:34 Advanced maternal age 490997005 O09.899 Routine an tenatal care 841951043 Z34.81 Z3A.08 Mild hyper emesis gravidarum 33834856 O21.0 mostly resolved [id number] Malka VANEGAS, [facility] [address] [place] [address] 7 09/22/2019 13:57:14 09/22/2019 14:40:34 Multigravida of advanced maternal age 166867564 O09.522 Z3A.15 [id number] Malka VANEGAS, [facility] POS [address] [place] [address] 10/20/2019 13:50:29 10/20/2019 15:17:10 Multigravida of advanced maternal age 034451210 O09.523 Z3A.19 [id number] Primitivo VANEGAS, Dickson [facility] - [place] [employer] [facility] POS [address] [place] [address] 10/27/2019 10:57:43 10/27/2019 14:41:15 Advanced maternal age 381351062 O09.899 expo sure to alcohol 816671100 O35.4XX9 expo sure to drug 656489560 O35.5XX9 Tolterodin e exposure [id number] Malka VANEGAS, [facility] POS [address] [place] [address] 7 11/24/2019 14:02:44 11/24/2019 15:47:27 Advanced maternal age 831018731 O09.899 Z3A.24 [id number] Malka VANEGAS, [facility] - INSURANCE SALES ASSISTANT [facility] POS [address] [place] [address] 7 12/08/2019 13:27:12 12/08/2019 15:22:20 Gestational diabetes mellitus 67580323 O24.410 [id number] [facility] - [place] [employer] [facility] POS [address] [place] [address] 12/17/2019 17:23:54 12/17/2019 17:24:51 [id number] Dickson Langford MD [facility] - [place] [employer] [facility] POS [address] [place] [address] 12/22/2019 08:47:44 12/22/2019 11:38:14 Glucose tolerance test outside reference range 048190641 R73.09 Gestationa l diabetes mellitus 31023311 O24.410 [id number] Malka VANEGAS, [facility] - INSURANCE SALES ASSISTANT [facility] POS [address] [place] [address] 12/22/2019 15:50:31 12/23/2019 10:14:48 Gestational diabetes mellitus 28011652 O24.410 Advanced m aternal age 467912267 O09.899 Z3A.24 High risk care 958238431 O09.93 [id number] Malka VANEGAS, Cali [facility] [place] - INSURANCE SALES ASSISTANT [facility] POS [address] [place] [address] 01/05/2020 15:26:25 01/06/2020 12:30:32 Advanced maternal age 083225136 O09.899 Z3A.24 Gestationa l diabetes mellitus 48366319 O24.410 High risk care 028498169 O09.93 [id number] [facility] - [place] [employer] [facility] DENNYDACYNDI POS [address] [place] [address] 01/08/2020 14:24:24 01/08/2020 15:19:50 [id number] Malka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 Pre/Post Dialysis Refused With clothes 205.964979746340 BP Diastolic BP Location Tested BP Systolic BP Type 80 L arm 132 sitting Fetus Heart Rate Present A 150 Fetus Movement Comments ob/fu - nausea has decreased . c/o pelvic pain when standing or shifting side to side in bed. Reviewed [place] neg. No other c/o. PTL signs and symptoms reviewed. Sched [facility] u/s. f/u 4wk. Flowsheet Date 10/20/2019 Jackson Score Blood Edema Fundus Height Fundus Units Glucose Ketones Leukocytes Nitrite Labor Signs Protein Cervic Dilation Cervic Effacement Cervic Station 20 none neg Type Weight in lbs Pre/Post Dialysis Refused With clothes 208.53478761368 BP Diastolic BP Location Tested BP Systolic BP Type 78 R arm 120 sitting Fetus Heart Rate Present A 150 Fetus Movement A Yes Comments ob/fu - MFM scheduled on 10/26. c/o continues to have nausea, frequent crackling in her right ear, nasal congestion, mild nose bleeds. No other c/o. Exam neg, TM neg. recommend saline mist. [facility] u/s sched 10/26. PTL signs and [...] in lbs Pre/Post Dialysis Refused With clothes 206.781919964936 BP Diastolic BP Location Tested BP Systolic BP Type 72 L arm 124 sitting Fetus Heart Rate Present A 150 Fetus Movement A Yes Comments Glucose and cbc labs today. Ingrown hair has been having some discomfort. Exam neg. 1hr gluc today. Reviewed [facility] u/s. PTL signs and symptoms reviewed. f/u 2wk. Flowsheet Date 12/08/2019 Jackson Score Blood Edema Fundus Height Fundus Units Glucose Ketones Leukocytes Nitrite Labor Signs Protein Cervic Dilation Cervic Effacement Cervic Station none neg Type Weight in lbs Pre/Post Dialysis Refused With clothes 208.426583927092 BP Diastolic BP Location Tested BP Systolic BP Type 70 L arm 118 sitting Fetus Heart Rate Present A 150 Fetus Movement A Yes Comments ob fu. No complains. Reviewe d 3hr gtt pos. refer to [facility], dietitian. Send glucometer, chem strips, lancets. [...] in lbs Pre/Post Dialysis Refused With clothes 207.547667453425 BP Diastolic BP Location Tested BP Systolic BP Type 72 L arm 124 sitting Fetus Heart Rate Present A 145 Fetus Movement A Yes Comments Pt c/o pain on hips when sle eping. Occ tightening muscle on ankle and foot. Denies other c/o. MFM u/s reviewed. BS fasting intermitt elevated, adjusting diet per county home demonstration agent. PTL signs and symptoms reviewed. f/u 2wk. Flowsheet Date 01/05/2020 Jackson Score Blood Edema Fundus Height Fundus Units Glucose Ketones Leukocytes Nitrite Labor Signs Protein Cervic Dilation Cervic Effacement Cervic Station 32 none neg Type Weight in lbs Pre/Post Dialysis Refused With clothes 205.052075746647 BP Diastolic BP Location Tested BP Systolic [...] in lbs Pre/Post Dialysis Refused With clothes 205.883942077835 BP Diastolic BP Location Tested BP Systolic [...] in lbs Pre/Post Dialysis Refused With clothes 205.807995140924 BP Diastolic BP Location Tested BP Systolic [...] in lbs Pre/Post Dialysis Refused With clothes 204.879728504229 BP Diastolic BP Location Tested BP Systolic [...] in lbs Pre/Post Dialysis Refused With clothes 205.875598110401 BP Diastolic BP Location Tested BP Systolic [...] in lbs Pre/Post Dialysis Refused With clothes 205.135057620338 BP Diastolic BP Location Tested BP Systolic [...] in lbs Pre/Post Dialysis Refused With clothes 201.264804733081 BP Diastolic BP Location Tested BP Systolic BP Type 80 L arm 120 sitting Fetus Heart Rate Present A 145 Fetus Movement A Yes Comments ob/fu - Pt was at [facility] on Saturday due to having [...] in lbs Pre/Post Dialysis Refused With clothes 192.095886238971 BP Diastolic BP Location Tested BP Systolic [...] 09/22/2019 Toxoplasmosis precautions (cats/raw meat) [email or web address] 09/22/2019 Worship [email or web address] 09/22/2019 Hospital choice [email or web address] 09/22/2019 Blood [...]
== END 2024-07-01 14:14 | disposition home or self-care (01) ==
LOC: HO.HOS 13:45
PROVIDERS: PCP Internal Medicine
DX: G56.01 Carpal tunnel syndrome, right upper limb (principal)
CPT/HCPCS: 99024

== ENCOUNTER → 2024-07-01 13:44 | Outpatient (BNVA) | payer OTHER, SELFPAY | PROVIDERS: PCP Internal Medicine | DX: Z48.811 Encounter for surgical aftercare following surgery on the nervous system (principal); Z98.890 Other specified postprocedural states | CPT/HCPCS: 99212 ==

== ENCOUNTER 2024-07-24 12:49 | Outpatient (REF) | payer OTHER, SELFPAY ==
[2024-07-24 14:32] LABS: Hematocrit 38.8 % (37.0-47.0); Hemoglobin 13.3 g/dl (12.0-16.0); Mean Corpuscular HGB Conc 34.3 g/dl (31.0-35.0); Mean Corpuscular Hemoglobin 29.9 pg (27.0-33.0); Mean Corpuscular Volume 87.2 fL (80.0-98.0); Mean Platelet Volume 8.6 fL (9.4-12.3); Platelet Count 267 X10*3/uL (160-400); Red Blood Count 4.45 X10*6/uL (4.20-5.50); Red Cell Distribution Width 13.2 % (11.0-16.0); White Blood Count 6.1 X10*3/uL (4.8-10.8)
[2024-07-24 15:27] LABS: HCG Quantitative < 2 mIU/mL; TSH reflex Free T4 2.27 uIU/mL (0.32-4.0)
--- OUTSIDE RECORDS SUMMARY | 2024-07-24 15:28 | XMS_ITS | Continuity of Care Document ---
Author Name [facility] Organization [facility] Care Team Providers Care Private Inquiry Agent Name Role Phone [facility] Unavailable Unavailable Allergies, Adverse Reactions, Alerts Combined list of allergies from [facility] facilities. It does not include entries that were removed or entered in error. Substance Category Reaction Severity Reaction type Status Date Reported Comments Source acetaminoph en-hydrocod one Drug allergy Active One or Mor e [facility] Facilities UNDERGROUND UTILITY LOCATOR ADHESIVES Propensity to adverse reaction (finding) active 0 ADE [facility] Adhesives Allergy to substance Active One or Mor e [facility] Facilities UNDERGROUND UTILITY LOCATOR Latex Drug allergy Active One or Mor e [facility] Facilities UNDERGROUND UTILITY LOCATOR LATEX GLOVE Propensity to adverse reactions to drug (finding) active 0 ADE [facility] VICODIN Propensity to adverse reactions to drug (finding) active 0 ADE [facility] Vital Signs Combined list of inpatient and outpatient Vital Signs from Department of [facility] and [facility], ranging from 12 months to all on record, depending upon the facility. Vital Sign Value Date Comments Source Systolic Blood Pressure 132 mm[Hg] 02/04/20 20 20:15:44 One or More [facility] Facilities UNDERGROUND UTILITY LOCATOR Diastolic Blood Pressure 78 mm[Hg] 02/04/2020 20:15:44 One or More [facility] Facilities UNDERGROUND UTILITY LOCATOR Procedures Combined list of: 1) Procedures from [facility] facilities going back up to thelast 18 months, not all [place] non-surgical procedures are included; 2) All procedures from the Department of [facility] facilities. Procedure Procedure Type Code Date Perfomer Comments Sourc e No data available for this section Ambulatory P harmacy Social History Combined list of available smoking, tobacco, and other social history from [facility] and [facility] facilities. Social History Type Response Date Comment Sourc e Sex Representation Female (finding) 05/13/2023 Unknown Organization Sexual Orientation Ambula tory Pharmacy Gender identity Ambulator y Pharmacy Assessment and Plan Combined list of future care activities from [facility] and [facility] facilities (e.g., assessment and plan notes, appointments, orders, and referrals). Additional future care activities may be listed in the Plan of Care section. Result Assessment and Plan Date Source Assessment and Plan No data available for this section 07/24/2024 Ambulatory Pharmacy Functional Status Combined list of recent functional and cognitive assessments recorded at [facility] ([facility]VA Functional [place] Measurement (FIM) Scale: 1 = Total Assistance (Subject = 0% +), 2 = Maximal Assistance (Subject = 25% +), 3 = Moderate Assistance (Subject = 50% +), 4 = Minimal Assistance (Subject = 75% +), 5 = Supervision, 6 = Modified [place] (Device), 7 = Complete [place] (Timely, Safely). Assessment Date/Time Source Assessment Type Assessment Skill Assessment Score Assessment Details No data available for this section
[2024-07-24 18:08] LABS: CT PCR NOT DETECTED (Not Detect.); NG PCR NOT DETECTED (Not Detect.)
== END 2024-07-24 12:50 | disposition home or self-care (01) ==
LOC: HO.LAB 12:49
PROVIDERS: PCP Internal Medicine; Visit Provider Obstetrics & Gynecology
DX: N93.9 Abnormal uterine and vaginal bleeding, unspecified (principal); R10.2 Pelvic and perineal pain; R31.29 Other microscopic hematuria; N83.299 Other ovarian cyst, unspecified side
CPT/HCPCS: 36415; 84443; 84702; 85027; 87086; 87491; 87591; 99212

== ENCOUNTER 2024-07-24 12:49 | Outpatient (AMB) | payer OTHER, SELFPAY ==
--- NOTE | 2024-07-24 12:50 | MHC.OFFVIS ---
Intake Visit Reasons: vaginal bleeding/pelvic pain Intake Note: This past Saturday severe pain, went to urinate and felt like passing out. Perinatal Technician: Perinatal Technician Present (Jovanna) Accompanied by: Self / Same As Patient Allergies latex Adverse Reaction (Mild, Verified 07/01/24 13:50) hives Is last menstrual period known: Yes Last menstrual period: 06/24/24 (Period from 06/24-06/29 nothing on 06/30, began spotting from the to the 14 of July. Began spotting again on 07/21 until present.) Post menopausal: No Patient : No HPI Comments Details: Presenting complaining of irregular menstrual cycles on Mirena IUD associated with pelvic cramping, no urinary symptoms or any other complaints. [facility] Medical History Nausea and vomiting in adult Acute respiratory disease Major depressive disorder, recurrent, severe with psychotic features Decreased hearing Tinnitus Reduced visual acuity Pyelonephritis (03/22/15) (08/04/19) Obesity (12/12/18) Migraine Menorrhagia Irritable bowel syndrome Insomnia Hiatal hernia Hemorrhoids Gastroesophageal reflux disease Fracture of hand (04/22/09) Female stress incontinence Blood in urine Severe carpal tunnel syndrome of right wrist Medical clearance for psychiatric admission Hypertriglyceridemia Positive Tinel's sign Positive Phalen maneuver Cervicalgia HTN (hypertension) Decreased hearing of both ears Environmental and seasonal allergies Tinnitus of both ears Knee pain Excessive daytime sleepiness Loud snoring Vitamin D deficiency Impaired fasting glucose Mixed dyslipidemia Morbid obesity Hiatal hernia with gastroesophageal reflux Family history of premature CAD Annual visit for general adult medical examination with abnormal findings Surgical History H/O endoscopy H/O wisdom tooth extraction Family History Father Substance use disorder Mental health disorder Alcoholism Myocardial infarction acute, Onset Age: 55 Depression Maternal Uncle Testicular cancer Social History Household Members: Family Household Members Other:: and 2 children Housing: House Do you presently have visiting nurse or other home services: No Alcohol intake: current Alcohol intake frequency: holidays/special occasions only Patient Tobacco Use Status: Never used Tobacco e-Cigarette/Vaping Use: Never Used Substance Use Type: Marijuana service: No Current occupational status: unemployed and other 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 Began spotting again on 07/21 until present.) Review of Systems Const All systems reviewed & are unremarkable except as noted in HPI and below Physical Exam General: Yes no CVA tenderness External Female Exam: normal external appearance and normal appearance of the urethra Speculum Exam - Vagina: normal appearance of the vagina, normal palpation, no lesions and no masses Speculum Exam - Cervix: normal appearance of the cervix, normal palpation, no lesions, no masses, nontender and Other cervical findings present (IUD thread in place) Bimanual exam- vagina & uterus: normal bimanual exam, normal palpation, uterine size normal, normal palpation, uterine shape normal, No Cervical tenderness present and non-tender Bimanual Exam- Adnexa, other: normal adnexae Back/Spine/Pelvis Back: no CVA tenderness Assessment & Plan Assessment & Plan (1) Abnormal uterine bleeding: Comment: On Mirena IUD Code(s): N93.9 - Abnormal uterine and vaginal bleeding, unspecified Category: Medical Plan: GC and chlamydia taken CBC, TSH, HCG, and pelvic ultrasound ordered. Discussed with the patient the different causes of abnormal bleeding including thyroid disorders, uterine and ovarian pathology, endometrial hyperplasia, carcinoma and other potential causes. Discussed with the patient the work up including CBC (to r/o anemia), TSH, pelvic Ultrasound, endometrial biopsy to r/o endometrial pathology. All questions answered and the patient verbalized understanding. Instructed the patient to schedule an appointment for an endometrial biopsy in 2 weeks. (2) Pelvic cramping: Code(s): R10.2 - Pelvic and perineal pain Category: Medical Plan: UPT done was negative, urine dip showed microscopic hematuria, GC/CT taken, Pelvic ultrasound ordered. Instructions given the patient to schedule an ultrasound and a follow-up appointment within 2 weeks (3) Microscopic hematuria: Code(s): R31.29 - Other microscopic hematuria Category: Medical Plan: Urine dip showed microscopic hematuria, urine culture sent. Will repeat urine dip in 2 weeks. Discussed with the patient the possible causes of microscopic hematuria including but not limited to: interstitial cystitis, polyps, stones, masses, urethral inflammatory processes and others. If Urine Culture is negative and repeat urine dip in 2 weeks shows persistent microscopic hematuria, will proceed with CT abdomen/pelvis and urology referral. Instructions given the patient to schedule a 2 week urine dip follow-up appointment. All questions answered and the patient verbalized understanding. Orders: Orders Complete Blood Count no Diff Today N93.9 - Abnormal uterine and vaginal bleeding, unspecified TSH reflex Free T4 Today N93.9 - Abnormal uterine and vaginal bleeding, unspecified HCG Quantitative Today N93.9 - Abnormal uterine and vaginal bleeding, unspecified US pelvic and transvaginal Today N93.9 - Abnormal uterine and vaginal bleeding, unspecified Coding Level of Care Code Est Pt Level 3 (52328) Diagnoses Abnormal uterine bleeding N93.9 Pelvic cramping R10.2 Microscopic hematuria R31.29
--- OUTSIDE RECORDS SUMMARY | 2024-07-24 14:39 | XMS_ITS | Data Portability ---
Author Organization [place] - [facility], [place] - [facility] - Address [address] [place] [address] Care Team Providers Care Investigator Name Role Phone ROBIN PENALOZANN Primary Care [...] 6-8 weeks. This visit was conducted via Pikh[employer] website [employer] using both audio and video during the 2019 COVID-19 pandemic. Patient consented to non face to face service. Patient location: car Provider location: [facility] Start time: 1417 End time: 142 Participants in visit: pt, resident physician, Dr. Espinal Patient was provided with follow up instructions, including management plan and recommended follow up time-frame. Not available 01/05/2021 10:59:37 03/01/2021 03/01/2021 I have reviewed the case presented by the resident and I agree with the assessment and plan as noted. The patient was seen by the preceptor for Office Visit Comments: Preceptor: Oh Epsinal MD 40 y/o F with MHx mixed [...] This visit was conducted via telehealth website [employer] using both audio and video during the 2020. Patient consented to non face to face service. Patient location: home Provider location: [facility] Start time: 1424 End time: 1429 Participants [...] This visit was conducted via telehealth website [employer] using both audio and video during the 2019. Patient consented to non face to face service. Patient location: home Provider location: [facility] Start time: 1352 End time: 1401 Participants [...] mg capsule,del ayed release 2021 022 [id number], [address], [place], [address], 15:13:01 duloxetine 60 mg capsule,del ayed release 04/06/ 2022 04/06/2 022 [facility], [address], [place], [address], 2 15:12:56 hydroxyzine HCl 50 mg tablet 2021 022 [facility], [address], [place], [address], 2 15:12:57 hydroxyzine HCl 50 mg tablet 2020 021 [facility], [address], [place], [address], 15:27:21 duloxetine 30 mg capsule,del ayed release 2020 021 [facility], [address], [place], [address], 15:27:17 duloxetine 60 mg capsule,del ayed release 2020 021 [facility], [address], [place], [address], 15:27:17 Patient TargetsNo targets recorded. Patient InstructionsNo instructions recorded. Reason for Referral None Reported. Problems Name Problem SNOMED Code Status Onset Date Resolution Date Notes Provider Name and Address Organization Details Recorded Time Multiple environm ental allergie s Active scotty sepulveda [facility] 6 12:23:04 Irritabl e bowel syndrome 80565266 Active celiac disease Ab testing Neg 11/03; improved w/ Gluten free diet scotty sepulveda [facility] 6 12:23:04 Gastroes ophageal reflux disease 882275691 Active scotty sepulveda [facility] 6 12:23:04 Mixed anxiety and depressi ve disorder 355123650 Active hx of post depressi on and took lexapro but felt poor response , wellbutr in was very neg side effects (bad vivid dreams of her hurting her family); zoloft was very good response but had to stop when breast feeding bad w/d (didn't wean) scotty sepulveda [facility] 6 12:23:03 Migraine 01776810 [facility] 12:[facility] Hiatal hernia 37079691 [facility] 12:[facility]04 Hemorrho ids 24067096 Completed 12/11/2018 tx'd w/ anusol-H C Timbo Mckeon DO [address], [place], [address] , [facility] 9 17:20:55 Female stress incontin ence 51328911 [facility] 7 18:34:40 Pyelonep hritis 63249585 Completed 201412/11/2018 tx'd w/ Levaquin Timbo Mckeon DO [address], [place], [address] , [place] [facility] 9 17:19:51 Insomnia 353447349 [facility] 6 12:23:03 Fracture of hand 65367200 Completed 200912/11/2018 Left Timbo Mckeon DO [address], [place], [address] , [place] [facility] 9 17:20:04 Tinnitus 21536275 [facility] 6 12:23:04 Decrease d hearing 236240622 Completed 12/11/2018 Timbo Mckeon DO [address], [place], [address] , [place] [facility] 9 17:19:28 Reduced visual acuity 23000488 Active scotty banda null, [place] - [facility] 6 12:23:04 Sensorin eural hearing loss of bilatera l ears 636810831 Active Asha Bradford [address], [place], [address] , [place] [facility] 6 13:11:25 Menorrha obi 151785854 Active Margy Becker MD [address], [place], [address] , [place] [facility] 7 22:56:04 Blood in urine 51022698 Completed 12/11/2018 Timbo Mckeon DO [address], [facility] [place], [address] , [place] [facility] 9 17:19:34 Obesity 323801831 Active 2018 Timbo Mckeon DO [address], [place], [address] , [place] [facility] 9 01:18:28 Pregnanc y 34649997 Completed 201903/16/2020 Aliyahjanet [place] null, [place] [facility] 0 12:25:25 Gestatio nal diabetes mellitus class A2 65173125 Active 2019 Aliyahjanet [place] null, [place] - [facility] 0 12:25:22 Gestatio nal diabetes mellitus class A2 91371351 Completed 2019 Aliyahjanet [place] null, [place] [facility] 0 12:25:22 Depressi ve disorder 36999781 Active 2020 Yaya Casanova DO [address], [place], [address] , [place] [facility] 1 15:54:10 [...] Non-Stress Test completed Malka VANEGAS, Cali [address], [place], [address], [facility] 02/25/2020 13:33:54 02/18/20 20 Non-Stress Test completed Cali Ace MD [address], [place], [address], [facility] 02/18/2020 15:49:47 02/11/20 20 Non-Stress Test completed Cali Ace MD [address], [place], [address], [facility] 02/11/2020 15:03:18 01/12/20 20 Non-Stress Test completed Cali Ace MD [address], [place], [address], [place] [facility] 01/12/2020 18:21:04 12/19/19 19 Date of Last Pap Smear completed Timbo Mckeon DO [address], [place], [address], [facility] 12/24/2018 14:45:47 06/30/19 17 Ortho Corticosteroid Injection completed Vy Feliciano [facility] 06/29/2016 12:26:26 06/29/19 17 Cystoscopy (female) completed Chuck VANEGAS, [address], [place], [address], [facility] 06/28/2016 12:41:47 06/14/19 17 Bladder Scan completed Chuck VANEGAS, [address], [place], [address], [facility] 06/14/2016 13:22:58 04/05/20 16 Tympanometry completed Asha Bradford [address], [place], [address], [facility] 04/05/2016 13:11:04 04/05/20 16 Audiogram.old completed Asha Bradford [address], [place], [address], [facility] 04/05/2016 13:11:04 11/21/19 15 Other completed Georgi Moctezuma MD [address], [place], [address], [facility] 01/13/2016 00:18:30 10/21/19 15 Other completed Georgi Moctezuma MD [address], [place], [address], [facility] 01/13/2016 00:18:30 04/22/19 00 [place] Teeth Removed completed Georgi Moctezuma MD [address] [facility], [place], [address], [facility] 01/12/2016 22:50:32 Oral surgery procedure completed Dena Argueta [facility] 04/06/2016 12:36:17 Imaging Results None recorded. Procedure Notes None recorded. Medical Equipment None Reported. Allergies Allergen ID Allergen Name Allergen Category Reaction Reaction Severity Criticality Documentation Date Start Date Code Code System Note Provider Name and Address Organization Details Recorded Time 082032 latex environme nt,medica tion hives moderate Not available 01/12/2016 70553 91 RxNorm Georgi Moctezuma MD [address] [facility], [place], [address], [facility] 6 22:23:54 756267 acetamino phen / hydrocodo ne medicatio n other moderate Not available 04/05/2016 40991 2 RxNorm facia l numbn ess scotty banda null, [facility] 6 12:23:03 183802 Wellbutri n medicatio n Not available Not available Not available 06/18/2016 34407 RxNorm vivid dream s/fri ghten ing ; used w/ post partu m alivia Moctezuma MD, Georgi Costa [address], [place], [address], [facility] 7 11:10:40 033764 adhesive tape environme nt,medica tion Not available Not available Not available 03/16/2020 50326 UNK Aliyah Julian null, [facility] [...] e 137 mcg (0.1 %) nasal spray [place] 1 spray every day by intranas al [...] Not Available Not Available Not Available FreeStyle Boody Lite kit 03/16 completed Not Available Not [...] Status Never Smoker 12/11/18 Kathy Guallpa [facility], [place] - [facility] 12/11/2018 16:59:59 Do You Have An Advance Directive? 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 She Does Not Want To Be Maintained On Chronic Life Support If There Is Little Hope Of A Meaningful Recovery. - 12/18/2018 Information not available 12/18/2018 What Is Your Level Of Alcohol Consumption? None [email or web address] Information not available 10/27/2019 Are You Blind [...] COVID-19 While That Case Was Ill? No [email or web address] Information not available 07/30/2019 In The 14 Days Before Symptom Onset, Have You Had Close Contact With A Person Who Is Under Investigation For COVID-19 While That Person Was Ill? No Information not available 07/30/2019 Have You Been To An Area Known To Be High Risk For COVID-19? No [email or web address] Information not available 07/30/2019 What Type Of Diet Are You Following? REGULAR Low Sodium Information not available 01/12/2016 Which Illicit Or Recreational Drugs Have You Used? None Information not available 12/11/2018 Do You Or Have You Ever Used E-cigarettes Or Vape? 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 No 12/11/18 Mh Information not available 04/06/2016 Have You Traveled Outside Of The [place] In The Last 21 Days (3 Weeks)? No Information not available 04/06/2016 Do You Have Any Yazidism Beliefs That May Impact Your Health Care Decisions? No Does Not Follow Any Mormonism Information not available 12/11/2018 Did You Hurt Yourself When You Fell In The Last Year? No 12/11/18 Mh Information not available 04/06/2016 Education: 12 Information not available 12/11/2018 Marital Status Informatio n not available 01/12/2016 What Was The Date Of Your Most Recent Tobacco Screening? 09/12/2020 [email or web address] Information not available 09/15/2020 Are You Sexually [...] Details LastModified Time Father Myocardial infarction 55 [email or web address] Not available 04/25 18:44:02 Father Hypertensive disorder Not available 2016 18:44:02 Father Hyperlipidem ia [email or web address] Not available 2016 18:44:02 Paternal Aunt Malignant tumor of cervix Not available 2016 18:44:02 Paternal Aunt Dementia [email or web address] Not a vailable 04/25/2016 18:44:02 Mother Pyelonephrit [...] cancelled patient objection Not Available [facility] 05/09/2019 02:33:30 Influenza, MDCK, quadrivalent , PF 8 completed Not Available [facility] 05/09/2019 03:23:32 Influenza, MDCK, quadrivalent , PF 9 completed Not Available [facility] 05/09/2019 03:01:50 Influenza, split virus, quadrivalent , PF 0 completed Savana sepulveda [facility] 01/05/2020 16:31:36 Tdap 3 completed Not Available [facility] 03/07/2020 09:20:47 Past Encounters Encounter ID Performer Location Encounter Start Date Encounter Closed Date Diagnosis/Indication Diagnosis SNOMED-CT Code Diagnosis ICD10 Code Diagnosis Note [id number] Anisha Mcclain [facility] POS [address] [place] [address] 01/12/2016 10:23:10 01/13/2016 12:09:34 Adult health examination 693869247 Z00.00 Hematology screening test 639933140 Z13.0 Hyperlipid emia screening 341376030 Z13.220 Endocrine/ metabolic screening 471492258 Z13.228 Mixed anxi ety and depressive disorder 032187365 F41.8 Tinnitus 91910851 H93.13 Decreased hearing 992535 001 H91.93 Reduced visual acuity 13 893763 H54.7 [facility] care 42020 5005 Z30.40 [id number] Lv lucas MD, Chandrakant Shipley [facility] POS [address] [facility] [address] [place] [address] 04/05/2016 11:57:03 04/05/2016 13:17:18 Tinnitus 46244755 H93.13 At this time the patient has bilateral tinnitus, most likely due to her bilateral hearing loss. Please see plan as described above. FG Allergic r hinitis caused by pollen 61386529 J30.1 At this time the patient has [...] Sensorineu ral hearing loss of bilateral ears 953296521 H90.3 At this time the patient comes [...] will follow up as needed. FG Dizziness 827506435 R42 At this time the patient also complains of an off balance feeling with walking up and down stairs, but does not have any other problems. We will see if this improves on nasal steroid spray. She had no further questions and will follow up as needed for now. FG [id number] Asha Bradford [facility] POS [address] [place] [address],[address] [place] [address] 04/05/2016 13:09:55 04/05/2016 13:12:09 Sensorineural hearing loss of bilateral ears 097905198 H90.3 [id number] Eugenio VANEGAS, Margy Valdivia [facility] T[facility]UE TECHNIC[facility] [place] POS [address] [place] [address],[address] [place] [address] 04/06/2016 12:09:16 04/06/2016 13:47:10 Gynecologic examination 87147834 Z01.419 Screening for malignant neoplasm of cervix 576868718 Z12.4 Menorrhagia 441895349 N9 2.0 History of urinary tract infection 3130388692 107 Z87.440 Surveillan ce of contraception 389392962 Z30.40 [id number] Eugenio VANEGAS, Margy Valdivia [facility] TISSUE TECHNICIAN [place] POS [address] [place] [address],[address] [place] [address] 04/25/2016 17:48:13 04/25/2016 19:53:53 Menorrhagia 840681838 N92.0 Blood in urine 49887098 R31.9 [id number] Rhianna VANEGAS, Georgi Costa [facility] POS [address],[facility] [place] [address] 05/08/2016 10:01:31 05/08/2016 12:08:23 Migraine 29813914 G43.909 Mixed anxi ety and depressive disorder 669708779 F41.8 Carpal davonte simon syndrome 28868511 G56.00 Insomnia 295220003 G47.0 0 Hand pain 67741121 M79.6 42 Vitamin D deficiency 347 54684 E55.9 [id number] Chuck VANEGAS, [facility] UROLOGY [facility] POS [address] [place] [address] 06/14/2016 12:22:40 06/14/2016 14:22:12 Microscopic hematuria 184262705 R31.21 she had 2-5 rbc on last ua done 04/26.17-has had full workup done in the past by another urologist and was negative but it was a while agozahida send urine for c/s and cytology-f ollow up for cystoscopy in office Renal colic 3267851 N23 she is having bilateral flank pain-previ ous urologist had checked a renal us but this may not apple 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-jc l do ct scan for stone search prior to cystoscopy [id number] Rhianna VANEGAS, Georgi Costa [facility] POS [address],[place] [address] 06/18/2016 10:33:06 06/18/2016 12:04:21 Mixed anxiety and depressive disorder 334921814 F41.8 [id number] Chuck VANEGAS, [facility] UR[facility] POS [address] [place] [address] 06/28/2016 12:09:59 06/28/2016 12:45:15 Blood in urine 91592772 R31.9 her cystoscopy shows mild chronic bullous cystitis and a diverticul um, mild grade 1 trabeculat ions-will start on suppressiv e dose macrodanti n for one monthfollo w up in 3mos [id number] Donnell VANEGAS, Luis Soliz [facility] - ORTHOPEDI CSURGERY [facility] POS [address] [place] [address] 06/29/2016 11:24:40 07/13/2016 10:46:48 Hand pain 63907316 M79.643 Carpal davonte simon syndrome 79337322 G56.01 G56.02 [id number] Donnell VANEGAS, Luis Soliz [facility] [place] POS [address] [place] [address] 07/13/2016 11:07:42 07/13/2016 13:24:50 Pain in wrist 13834087 M25.531 Hand pain 67613259 M79.6 43 Carpal davonte simon syndrome 69211972 G56.01 G56.02 [id number] Rhianna VANEGAS, Georgi Costa [facility] [place] [facility] POS [address],[place] [address] 07/16/2016 10:58:41 07/16/2016 11:42:57 Mixed anxiety and depressive disorder 277259518 F41.8 [id number] Donnell VANEGAS, Luis Reynaoli [facility] ORTHOPEDI CSURGERY [place] [address] [place] [address] 08/13/2016 11:24:07 08/13/2016 12:23:07 Hand pain 80935938 M79.641 Pain in wrist 27936741 M 25.531 Carpal davonte simon syndrome 52846542 G56.01 G56.02 [id number] Donnell VANEGAS, [facility] [place] [address] [place] [address] 09/20/2016 11:45:56 09/20/2016 14:44:21 Pain in wrist 27407333 M25.531 M25.532 Hand pain 96668038 M79.6 41 Carpal davonte simon syndrome 71722424 G56.01 G56.02 [id number] Chuck VANEGAS, [facility] [place] POS [address] [place] [address] 10/04/2016 11:54:33 10/04/2016 12:31:12 Blood in urine 35761279 R31.9 she had history of microhemat uriawas given 3mos of suppressiv e dose abxhas not seen any blood in urinewill check ua/culture Bladder mu scle dysfunction - overactive 758503402 N32.81 she goes to bathroom every 2 hours during day and 2 times at night, occ urge incontinen cetrial of myrbetriq Female str ess incontinence 95696758 N39.3 -she does not require pads for the problemonl y occurs occasional ly with sneezingdi scussed treatment options- e will observe for now [id number] Donnell VANEGAS, Luis Soliz [facility] [address] [place] [address] 10/08/2016 09:47:26 10/08/2016 10:46:23 Pain in wrist 92531760 M25.531 M25.532 Hand pain 06531693 M79.6 41 Carpal davonte simon syndrome 22748953 G56.01 G56.02 [id number] Donnell VANEGAS, Luis Soliz [facility] ORTHOPEDI CSURGERY [facility] [address] [facility] [place] [address] 11/09/2016 10:50:45 11/09/2016 12:33:48 Pain in wrist 10413909 M25.531 M25.532 Neck pain 67559366 M54.2 Hand pain 69644836 M79.6 41 Carpal davonte simon syndrome 11499428 G56.01 G56.02 [id number] Rhianna VANEGAS, Georgi [facility] AM [address],[place] [address] 11/21/2016 10:22:19 12/11/2016 16:16:59 Low back pain 481904503 M54.5 Snoring 99288592 R06.83 [id number] Rhianna VANEGAS, Georgi [facility] AM [address],[place] [address] 01/10/2017 16:20:44 01/10/2017 17:19:55 Pain in left knee 9481035157 84620 M25.562 Depressive disorder 3548 9007 F32.89 Fatigue 27070264 R53.83 [id number] Chuck VANEGAS, Vibha [facility] - UROLOGY [facility] [address] [place] [address] 01/31/2017 11:27:16 01/31/2017 12:47:19 Bladder muscle dysfunction - overactive 772292176 N32.81 she goes to bathroom every 2 hours during day and 2 times at night, occ urge incontinen cemyrbetri q didn't help and wasn't covered Female str ess incontinence 37298831 N39.3 she is more bothered by it latelywoul d like to try physical therapyref erral to ati womens health given [id number] Tete Brian DO [facility] Maddie [facility] AM#1 [address] [place] [address] 03/08/2017 11:55:53 03/13/2017 00:11:33 Fatigue 35557891 R53.83 --concerns for fatigue and insomnia. Have discussed sleep hygeine techniques with patient and reviewed the sleep study with her. Discussed weight loss and controllin g nasal congestion .--Pt will attempt these and follow up in the next 3 months. Allergic rhinitis 868019 04 J30.9 --nasal congestion Obesity 763214223 E66.9 --discusse d keeping track of her calories and aiming to eat about 500 calories less then what she normally eats.--Pt should f/u in 3 months on weight loss. [id number] Tete Brian DO [facility] AM#1 [address] [place] [address] 06/12/2017 10:00:03 06/12/2017 10:41:36 Active or passive immunization 619959782 Z23 Fatigue 44329548 R53.83 --cont use of breathe right strips and use nasal steroid. Allergic rhinitis 751382 04 J30.9 --nasal congestion continued. Increase cetirizine to 10 mg daily, but go back to 5 mg if she feels overly fatigued. Cont fluticason e and also start azelastine daily. Gastroesop hageal reflux disease 872984997 K21.9 [id number] Tete Brian DO [facility] AM#1 POS [address] [place] [address] 08/12/2017 10:54:36 08/12/2017 11:48:10 Obesity 983760074 E66.9 --discusse d weight loss and diet again Insomnia 483577743 G47.0 0 --pt instructed to take amitriptyl ine daily.--Co unselled on possible side effects. RTC if insomnia worsens Neck pain 12542579 M54.2 --negative adsons test, negative spurling sign. Muscle spasm in b/l neck.--Giv en exercises for neck. OTC tylenol and ibuprofen. RTC as needed. Migraine 10826245 G43.90 9 [id number] Tete Brian DO [facility] AM#1 POS [address] [place] [address] 02/11/2018 10:03:22 02/11/2018 10:50:04 Administration of influenza vaccine 55994792 Z23 Migraine 53533680 G43.90 9 --fioricet , amitriptyl ine and topiramate Insomnia 984876660 G47.0 0 --pt instructed to take amitriptyl ine daily.--Co unselled on possible side effects. RTC if insomnia worsens Environmental allergy 42 0463299 T78.49XA [id number] Shade VANEGAS, Nitin [facility] AM#1 POS [address] [place] [address] 04/02/2018 14:24:14 04/02/2018 15:10:58 Adult health examination 149528922 Z00.00 Migraine 39839127 G43.90 9 [id number] Timbo Mckeon DO [facility]#[address] [facility],[address] [place] [address] 12/11/2018 16:42:55 12/11/2018 17:56:44 Bladder muscle dysfunction - overactive 631079413 N32.81 she has urinary incontinen ce and requesting a refill of the detrol, this has helped her in the past Body mass index 30+ - obesity 817741394 Z68.39 The patient's current weight is 209# with a height of 5' 1.25 and a correspond ing BMI (Body Mass Index) of 39.2. The medical definition of Obesity is a BMI greater than 30. Your [place] Body Weight is approximat malinda about 116#. [...] migraine prophylaxi s and weight loss. Migraine 17638408 G43.90 9 see the above plan [id number] Timbo Mckeon DO [facility] [facility] [address] [facility],[address] [place] [address] 12/18/2018 09:57:19 12/18/2018 11:37:10 Adult health examination 941747587 Z00.00 Female Complete Physical Exam: I discussed [...] exercise, diet. Achieve/ma intain ideal body weight. [place] body weight is about 116 pounds,Adv anced directives : I gave the patient the form for LIVING WILL and health power of estate attorney from the [place] [employer], the patient does want to be resuscitat ed but the patient does not want to be maintained on chronic life support if there is little hope of meaningful recovery. Active or passive immunization 197000495 Z23 Flu vaccine today, She is up to date with the Tdap Body mass index 30+ - obesity 013241498 Z68.38 The patient's current weight is 206.75# with a height of 5' 1.25 and a correspond ing BMI (Body Mass Index) of 38.7. The medical definition of Obesity is a BMI greater than 30. Your [place] Body Weight is approximat malinda about 116#. A reduced calorie, reduced carbohydra te weight reduction diet as well as increased activity.. She has lost about 3# since the last visit Hyperhidro sis of axilla 723920346 L74.510 Drysol Jessie.ly to axilla once daily at first and then about three times per week, do not apply to fresh shaven skin. Elevated blood-pressure reading without diagnosis of hypertension 786161640 R03.0 I encouraged the patient to check the blood pressure and log the results. Please follow a reduced sodium diet and maintain/a chieve ideal body weight. [id number] Malka VANEGAS, Cali Carter [facility] - TISSUE TECHNICIAN [place] POS [address] [place] [address] 07/30/2019 10:48:16 07/30/2019 12:44:41 test positive 723847427 Z32.01 Mild hyper emesis gravidarum 07369426 O21.0 Reviewed and hyperemesi s with patient. Reviewed diet at length. Questions answered. Recommend consider hold PNV. Start vitamin B6, unisom. Ob dating u/s in 1 week. f/u 1wk. Amenorrhea 34480343 N91. 2 Reviewed findings, positive test. [id number] Malka VANEGAS, Cali Carter [facility] - TISSUE TECHNICIAN [facility] STREAM POS [address] [place] [address] 08/04/2019 11:31:16 08/04/2019 13:34:46 Disorder of menstruation 620414843 N92.6 Ob u/s reviewed, show viable iup consistent with LMP dating. Reviewed with patient. Routine an tenatal care 459419782 Z34.81 Z3A.08 Venereal d isease screening 480890809 Z11.3 Advanced m aternal age 878381616 O09.899 [id number] Malka VANEGAS, [facility] - TISSUE TECHNICIAN [place] POS [address] [place] [address] 7 08/18/2019 11:25:44 08/18/2019 13:21:34 Advanced maternal age 076265856 O09.899 Routine an tenatal care 694949468 Z34.81 Z3A.08 Mild hyper emesis gravidarum 12760409 O21.0 mostly resolved [id number] Malka VANEGAS, [facility] POS [address] [place] [address] 7 09/22/2019 13:57:14 09/22/2019 14:40:34 Multigravida of advanced maternal age 763037223 O09.522 Z3A.15 [id number] Malka VANEGAS, [facility] POS [address] [place] [address] 7 10/20/2019 13:50:29 10/20/2019 15:17:10 Multigravida of advanced maternal age 423467829 O09.523 Z3A.19 [id number] Primitivo VANEGAS, Dickson [facility] - [place] [employer] [facility] POS [address] [place] [address] 10/27/2019 10:57:43 10/27/2019 14:41:15 Advanced maternal age 011385869 O09.899 expo sure to alcohol 622287807 O35.4XX9 expo sure to drug 839570705 O35.5XX9 Tolterodin e exposure [id number] Malka VANEGAS, [facility] POS [address] [place] [address] 7 11/24/2019 14:02:44 11/24/2019 15:47:27 Advanced maternal age 183288570 O09.899 Z3A.24 [id number] Malka VANEGAS, [facility] - TISSUE TECHNICIAN [place] POS [address] [place] [address] 7 12/08/2019 13:27:12 12/08/2019 15:22:20 Gestational diabetes mellitus 89802955 O24.410 [id number] [facility] - [place] [facility] [facility] HINSDACYNDI POS [address] [place] [address] 12/17/2019 17:23:54 12/17/2019 17:24:51 [id number] Dickson Langford MD [facility] - [place]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 Fundus Units Glucose Ketones Leukocytes Nitrite Labor Signs Protein Cervic Dilation Cervic Effacement Cervic Station trace none neg Type Weight in lbs Pre/Post Dialysis Refused With clothes 205.022135970137 BP Diastolic BP Location Tested BP Systolic BP Type 80 L arm 132 sitting Fetus Heart Rate Present A 150 Fetus Movement Comments ob/fu - nausea has decreased . c/o pelvic pain when standing or shifting side to side in bed. Reviewed Johnson neg. No other c/o. PTL signs and symptoms reviewed. Sched [facility] u/s. f/u 4wk. Flowsheet Date 10/20/2019 Jackson Score Blood Edema Fundus Height Fundus Units Glucose Ketones Leukocytes Nitrite Labor Signs Protein Cervic Dilation Cervic Effacement Cervic Station 20 none neg Type Weight in lbs Pre/Post Dialysis Refused With clothes 208.75118676896 BP Diastolic BP Location Tested BP Systolic BP Type 78 R arm 120 sitting Fetus Heart Rate Present A 150 Fetus Movement A Yes Comments ob/fu - MFM scheduled on 10/26. c/o continues to have nausea, frequent crackling in her right ear, nasal congestion, mild nose bleeds. No other c/o. Exam neg, TM neg. recommend saline mist. [facility] u/s sched 10/26. PTL signs and [...] in lbs Pre/Post Dialysis Refused With clothes 206.148607445773 BP Diastolic BP Location Tested BP Systolic BP Type 72 L arm 124 sitting Fetus Heart Rate Present A 150 Fetus Movement A Yes Comments Glucose and cbc labs today. Ingrown hair has been having some discomfort. Exam neg. 1hr gluc today. Reviewed [facility] u/s. PTL signs and symptoms reviewed. f/u 2wk. Flowsheet Date 12/08/2019 Jackson Score Blood Edema Fundus Height Fundus Units Glucose Ketones Leukocytes Nitrite Labor Signs Protein Cervic Dilation Cervic Effacement Cervic Station none neg Type Weight in lbs Pre/Post Dialysis Refused With clothes 208.411656588410 BP Diastolic BP Location Tested BP Systolic BP Type 70 L arm 118 sitting Fetus Heart Rate Present A 150 Fetus Movement A Yes Comments ob fu. No complains. Reviewe d 3hr gtt pos. refer to [facility], dietitian. Send glucometer, chem strips, lancets. [...] in lbs Pre/Post Dialysis Refused With clothes 207.468958312307 BP Diastolic BP Location Tested BP Systolic BP Type 72 L arm 124 sitting Fetus Heart Rate Present A 145 Fetus Movement A Yes Comments Pt c/o pain on hips when sle eping. Occ tightening muscle on ankle and foot. Denies other c/o. MFM u/s reviewed. BS fasting intermitt elevated, adjusting diet per wall cleaner. PTL signs and symptoms reviewed. f/u 2wk. Flowsheet Date 01/05/2020 Jackson Score Blood Edema Fundus Height Fundus Units Glucose Ketones Leukocytes Nitrite Labor Signs Protein Cervic Dilation Cervic Effacement Cervic Station 32 none neg Type Weight in lbs Pre/Post Dialysis Refused With clothes 205.626915652415 BP Diastolic BP Location Tested BP Systolic [...] in lbs Pre/Post Dialysis Refused With clothes 205.632351588218 BP Diastolic BP Location Tested BP Systolic [...] in lbs Pre/Post Dialysis Refused With clothes 205.006846293304 BP Diastolic BP Location Tested BP Systolic [...] in lbs Pre/Post Dialysis Refused With clothes 204.445376759540 BP Diastolic BP Location Tested BP Systolic [...] in lbs Pre/Post Dialysis Refused With clothes 205.946387116054 BP Diastolic BP Location Tested BP Systolic [...] in lbs Pre/Post Dialysis Refused With clothes 205.901748994973 BP Diastolic BP Location Tested BP Systolic [...] in lbs Pre/Post Dialysis Refused With clothes 201.112687317720 BP Diastolic BP Location Tested BP Systolic BP Type 80 L arm 120 sitting Fetus Heart Rate Present A 145 Fetus Movement A Yes Comments ob/fu - Pt was at [facility] L[facility] on Saturday due to having [...] in lbs Pre/Post Dialysis Refused With clothes 192.045808833297 BP Diastolic BP Location Tested BP Systolic [...] 09/22/2019 Toxoplasmosis precautions (cats/raw meat) [email or web address] 09/22/2019 Mormonism [email or web address] 09/22/2019 Hospital choice [email or web address] 09/22/2019 Blood [...]
--- OUTSIDE RECORDS SUMMARY | 2024-07-24 14:39 | XMS_ITS | Continuity of Care Document ---
Author Name [facility] Organization [facility] Care Team Providers Care Systems Architect Name Role Phone [facility] Unavailable Unavailable Allergies, Adverse Reactions, Alerts Combined list of allergies from [facility] facilities. It does not include entries that were removed or entered in error. Substance Category Reaction Severity Reaction type Status Date Reported Comments Source acetaminoph en-hydrocod one Drug allergy Active One or Mor e [facility] Facilities TITLE I TEACHER ADHESIVES Propensity to adverse reaction (finding) active 0 ADE [facility] Adhesives Allergy to substance Active One or Mor e [facility] Facilities TITLE I TEACHER Latex Drug allergy Active One or Mor e [facility] Facilities TITLE I TEACHER LATEX GLOVE Propensity to adverse reactions to drug (finding) active 0 [facility] VICODIN Propensity to adverse reactions to drug (finding) active 0 ADE [facility] Vital Signs Combined list of inpatient and outpatient Vital Signs from Department of [facility] and [facility], ranging from 12 months to all on record, depending upon the facility. Vital Sign Value Date Comments Source Systolic Blood Pressure 132 mm[Hg] 02/04/20 20 20:15:[address] [facility] Facilities TITLE I TEACHER Diastolic Blood Pressure 78 mm[Hg] 02/04/2020 20:15:[address] [facility] Facilities TITLE I TEACHER Procedures Combined list of: 1) Procedures from [facility] facilities going back up to thelast 18 months, not all [place] non-surgical procedures are included; 2) All procedures from the Department of [facility] facilities. Procedure Procedure Type Code Date Perfomer Comments Sourc e No data available for this section Ambulatory P harmacy Social History Combined list of available smoking, tobacco, and other social history from Department [facility] and [facility] facilities. Social History Type Response Date Comment Sourc e Sex Representation Female (finding) 05/13/2023 Unknown Organization Sexual Orientation Ambula tory Pharmacy Gender identity Ambulator y Pharmacy Assessment and Plan Combined list of future care activities from Department of [facility] and [facility] facilities (e.g., assessment and plan notes, appointments, orders, and referrals). Additional future care activities may be listed in the Plan of Care section. Result Assessment and Plan Date Source Assessment and Plan No data available for this section 07/24/2024 Ambulatory Pharmacy Functional Status Combined list of recent functional and cognitive assessments recorded at [facility] ([facility]VA Functional [place] Measurement (FIM) Scale: 1 = Total Assistance (Subject = 0% +), 2 = Maximal Assistance (Subject = 25% +), 3 = Moderate Assistance (Subject = 50% +), 4 = Minimal Assistance (Subject = 75% +), 5 = Supervision, 6 = Modified [place] (Device), 7 = Complete [place] (Timely, Safely). Assessment Date/Time Source Assessment Type Assessment Skill Assessment Score Assessment Details No data available for this section
== END 2024-07-24 13:58 | disposition home or self-care (01) ==
LOC: HO.HWS 12:49
PROVIDERS: PCP Internal Medicine; Visit Provider Obstetrics & Gynecology
DX: N93.9 Abnormal uterine and vaginal bleeding, unspecified (principal); R10.2 Pelvic and perineal pain; R31.29 Other microscopic hematuria
CPT/HCPCS: 99213

== ENCOUNTER 2024-07-24 14:07 | Outpatient (REF) | payer OTHER, SELFPAY ==
--- OUTSIDE RECORDS SUMMARY | 2024-07-24 15:51 | XMS_ITS | Continuity of Care Document ---
Author Name [facility] Organization [facility] Care Team Providers Care Facilities Maintenance Engineer Name Role Phone [facility] Unavailable Unavailable Allergies, Adverse Reactions, Alerts Combined list of allergies from [facility] facilities. It does not include entries that were removed or entered in error. Substance Category Reaction Severity Reaction type Status Date Reported Comments Source acetaminoph en-hydrocod one Drug allergy Active One or Mor e [facility] Facilities MANAGER BOOK ADHESIVES Propensity to adverse reaction (finding) active 0 ADE [facility] Adhesives Allergy to substance Active One or Mor e [facility] Facilities MANAGER BOOK Latex Drug allergy Active One or Mor e [facility] Facilities MANAGER BOOK LATEX GLOVE Propensity to adverse reactions to drug (finding) active 0 ADE [facility] VICODIN Propensity to adverse reactions to drug (finding) active 0 ADE [facility] Vital Signs Combined list of inpatient and outpatient Vital Signs from Department of [facility] and [facility], ranging from 12 months to all on record, depending upon the facility. Vital Sign Value Date Comments Source Systolic Blood Pressure 132 mm[Hg] 02/04/20 20 20:15:44 One or More [facility] Facilities MANAGER BOOK Diastolic Blood Pressure 78 mm[Hg] 02/04/2020 20:15:44 One or More [facility] Facilities MANAGER BOOK Procedures Combined list of: 1) Procedures from [facility] facilities going back up to thelast 18 months, not all [place] non-surgical procedures are included; 2) All procedures from the Department of [facility] facilities. Procedure Procedure Type Code Date Perfomer Comments Sourc e No data available for this section Ambulatory P harmacy Social History Combined list of available smoking, tobacco, and other social history from Department of [facility] and [facility] facilities. Social History Type Response Date Comment Sourc e Sex Representation Female (finding) 05/13/2023 Unknown Organization Sexual Orientation Ambula tory Pharmacy Gender identity Ambulator y Pharmacy Assessment and Plan Combined list of future care activities from Department of [facility] and [facility] facilities (e.g., assessment and plan notes, appointments, orders, and referrals). Additional future care activities may be listed in the Plan of Care section. Result Assessment and Plan Date Source Assessment and Plan No data available for this section 07/24/2024 Ambulatory Pharmacy Functional Status Combined list of recent functional and cognitive assessments recorded at [facility] ([facility]VA Functional [place] Measurement (FIM) Scale: 1 = Total Assistance (Subject = 0% +), 2 = Maximal Assistance (Subject = 25% +), 3 = Moderate Assistance (Subject = 50% +), 4 = Minimal Assistance (Subject = 75% +), 5 = Supervision, 6 = Modified [place] (Device), 7 = Complete [place] (Timely, Safely). Assessment Date/Time Source Assessment Type Assessment Skill Assessment Score Assessment Details No data available for this section
== END 2024-07-24 14:08 | disposition home or self-care (01) ==
LOC: HO.LNP 14:07
PROVIDERS: Visit Provider Obstetrics & Gynecology
DX: Z13.89 Encounter for screening for other disorder (principal)

== ENCOUNTER 2024-07-30 13:30 | Outpatient (REF) | payer OTHER, SELFPAY ==
--- NOTE | ~2024-07-30 | US_ITS ---
EXAMINATION: US PELVIS TRANSABDOMINAL AND TRANSVAGINAL HISTORY: N93.9 - Abnormal uterine and vaginal bleeding, unspecified COMPARISON: Comparison is made with the prior examination dated 12/18/2023. TECHNIQUE: Transabdominal and endovaginal real-time 2D castro-scale ultrasound was performed. FINDINGS: Uterus: The uterus is normal in size, measuring 9.3 x 5.3 x 5.2 cm. Myometrium has a normal echotexture. No fibroids are identified. Endometrium: The endometrial stripe measures 5 mm in thickness. An IUD is noted in the lower uterine segment/cervix. Right ovary: The right ovary measures 3.3 x 1.1 x 2.4 cm. The right ovary is normal in size and echotexture. Left ovary: The left ovary measures 3.7 x 1.6 x 4.1 cm. The left ovary is normal in size and echotexture. Pelvic fluid: none. US/US pelvic and transvaginal IMPRESSION: Abnormal position of an IUD in the lower uterine segment/cervix. Otherwise unremarkable pelvic ultrasound. Electronically signed by: Charles Chawla MD 07/30/2024 02:15 PM EDT
--- OUTSIDE RECORDS SUMMARY | 2024-07-30 16:18 | XMS_ITS | Continuity of Care Document ---
Author Name [facility] Organization [facility] Care Team Providers Care Food Technology Teacher Name Role Phone [facility] Unavailable Unavailable Allergies, Adverse Reactions, Alerts Combined list of allergies from [facility] facilities. It does not include entries that were removed or entered in error. Substance Category Reaction Severity Reaction type Status Date Reported Comments Source acetaminoph en-hydrocod one Drug allergy Active One or Mor e [facility] Facilities SERVER MANAGER ADHESIVES Propensity to adverse reaction (finding) active 0 ADE [facility] Adhesives Allergy to substance Active One or Mor e [facility] Facilities SERVER MANAGER Latex Drug allergy Active One or Mor e [facility] Facilities SERVER MANAGER LATEX GLOVE Propensity to adverse reactions to drug (finding) active 0 [facility] VICODIN Propensity to adverse reactions to drug (finding) active 0 [facility] Vital Signs Combined list of inpatient and outpatient Vital Signs from Department of [facility] and [facility], ranging from 12 months to all on record, depending upon the facility. Vital Sign Value Date Comments Source Systolic Blood Pressure 132 mm[Hg] 02/04/20 20 20:15:44 One or More [facility] Facilities SERVER MANAGER Diastolic Blood Pressure 78 mm[Hg] 02/04/2020 20:15:44 One or More [facility] Facilities SERVER MANAGER Procedures Combined list of: 1) Procedures from [facility] facilities going back up to thelast 18 months, not all ID non-surgical procedures are included; 2) All procedures from the Department of [facility] facilities. Procedure Procedure Type Code Date Perfomer Comments Sourc e No data available for this section Ambulatory P harmacy Social History Combined list of available smoking, tobacco, and other social history from Department of [facility] and [facility] facilities. Social History Type Response Date Comment Sourc e Sex Representation Female (finding) 05/13/2023 Unknown Organization Sexual Orientation Ambula tory Pharmacy Gender identity Ambulator y Pharmacy Assessment and Plan Combined list of future care activities from Department of [facility] and [facility] facilities (e.g., assessment and plan notes, appointments, orders, and referrals). Additional future care activities may be listed in the Plan of Care section. Result Assessment and Plan Date Source Assessment and Plan No data available for this section 07/30/2024 Ambulatory Pharmacy Functional Status Combined list of recent functional and cognitive assessments recorded at [facility] Functional [place] Measurement (FIM) Scale: 1 = Total Assistance (Subject = 0% +), 2 = Maximal Assistance (Subject = 25% +), 3 = Moderate Assistance (Subject = 50% +), 4 = Minimal Assistance (Subject = 75% +), 5 = Supervision, 6 = Modified [place] (Device), 7 = Complete [place] (Timely, Safely). Assessment Date/Time Source Assessment Type Assessment Skill Assessment Score Assessment Details No data available for this section
--- OUTSIDE RECORDS SUMMARY | 2024-07-30 16:18 | XMS_ITS | Data Portability ---
Author Organization [place] - [facility], [place] - [facility] - Address [address] [place] [address] Care Team Providers Care Director Equipment Name Role Phone ROBIN PENALOZANN Primary Care [...] 6-8 weeks. This visit was conducted via Yik [employer]ak website Medcurrent using both audio and video during the 2019 COVID-19 pandemic. Patient consented to non face to face service. Patient location: car Provider location: [facility] Start time: 1417 End time: 142 Participants [...] This visit was conducted via telehealth website Medcurrent using both audio and video during the 2020. Patient consented to non face to face service. Patient location: home Provider location: [facility] Start time: 1424 End time: 1429 Participants [...] This visit was conducted via telehealth website Medcurrent using both audio and video during the 2019. Patient consented to non face to face service. Patient location: home Provider location: [facility] Start time: 1352 End time: 1401 Participants [...] mg capsule,del ayed release 2021 022 [facility], [address], [place], [address], 15:13:01 duloxetine 60 mg capsule,del ayed release 04/06/ 2022 04/06/2 022 [facility], [address], [place], [address], 2 15:12:56 hydroxyzine HCl 50 mg tablet 2021 022 [facility], [address], [place], [address], 2 15:12:57 hydroxyzine HCl 50 mg tablet 2020 021 [facility], [address], [place], [address], 15:27:21 duloxetine 30 mg capsule,del ayed release 2020 021 [facility], [address], [place], [address], 15:27:17 duloxetine 60 mg capsule,del ayed release 2020 021 [facility], [address], [place], [address], 15:27:17 Patient TargetsNo targets recorded. Patient InstructionsNo instructions recorded. Reason for Referral None Reported. Problems Name Problem SNOMED Code Status Onset Date Resolution Date Notes Provider Name and Address Organization Details Recorded Time Multiple environm ental allergie s Active scotty sepulveda [facility] 6 12:23:04 Irritabl e bowel syndrome 34319053 Active celiac disease Ab testing Neg 11/03; improved w/ Gluten free diet scotty sepulveda [facility] 6 12:23:04 Gastroes ophageal reflux disease 774166714 Active scotty sepulveda [facility] 6 12:23:04 Mixed anxiety and depressi ve disorder 127190600 Active hx of post depressi on and took lexapro but felt poor response , wellbutr in was very neg side effects (bad vivid dreams of her hurting her family); zoloft was very good response but had to stop when breast feeding bad w/d (didn't wean) scotty sepulveda [facility] 6 12:23:03 Migraine 26247627 [facility] 12:23:03 Hiatal hernia 97607025 [facility] 6 12:23:04 Hemorrho ids 03173753 Completed 12/11/2018 tx'd w/ anusol-H C iTmbo Mckeon DO [address], [place], [address] , [facility] 9 17:20:55 Female stress incontin ence 01198271 Active [facility] 7 18:34:40 Pyelonep hritis 87623007 Completed 201412/11/2018 tx'd w/ Levaquin Timbo Mckeon DO [address], [place], [address] , [place] [facility] 9 17:19:51 Insomnia 208756932 [facility] 6 12:23:03 Fracture of hand 43900358 Completed 200912/11/2018 Left Timbo Mckeon DO [address], [place], [address] , [place] [facility] 9 17:20:04 Tinnitus 99675874 [facility] 6 12:23:04 Decrease d hearing 831646147 Completed 12/11/2018 Timbo Mckeon DO [address], [place], [address] , [place] [facility] 9 17:19:28 Reduced visual acuity 27581996 Active scotty banda null, [place] - [facility] 6 12:23:04 Sensorin eural hearing loss of bilatera l ears 258680463 Active Asha Bradford [address], [place], [address] , [place] [facility] 6 13:11:25 Menorrha obi 269718558 Active Margy Becker MD [address], [place], [address] , [place] [facility] 7 22:56:04 Blood in urine 80929020 Completed 12/11/2018 Timbo Mckeon DO [address], [email or web address], [address] , [place] [facility] 9 17:19:34 Obesity 269164838 Active 2018 Timbo Mckeon DO [address], [email or web address], [address] , [place] [facility] 9 01:18:28 Pregnanc y 89655687 Completed 201903/16/2020 Aliyahjanet [place] null, [place] - [facility] 0 12:25:25 Gestatio nal diabetes mellitus class A2 69940435 Active 2019 Aliyahjanet [place] null, [place] - [facility] 0 12:25:22 Gestatio nal diabetes mellitus class A2 39179099 Completed 2019 Aliyahjanet [place] null, [place] - [facility] 0 12:25:22 Depressi ve disorder 12731205 Active 2020 Yaya Casanova DO [address], [place], [address] , [place] [facility] 1 15:54:10 Notes:hx plantar fasciitis; hx [...] Non-Stress Test completed Malka VANEGAS, [address]i [address], [place], [address], [facility] 02/25/2020 13:33:54 02/18/20 20 Non-Stress Test completed Cali Ace MD [address], [place], [address], [facility] 02/18/2020 15:49:47 02/11/20 20 Non-Stress Test completed Cali Ace MD [address], [place], [address], [facility] 02/11/2020 15:03:18 01/12/20 20 Non-Stress Test completed Cali Ace MD [address], [place], [address], [place] [facility] 01/12/2020 18:21:04 12/19/19 19 Date of Last Pap Smear completed Timbo Mckeon DO [address], [place], [address], [facility] 12/24/2018 14:45:47 06/30/19 17 Ortho Corticosteroid Injection completed Vy Feliciano [facility] 06/29/2016 12:26:26 06/29/19 17 Cystoscopy (female) completed Chuck VANEGAS, [address], [place], [address], [facility] 06/28/2016 12:41:47 06/14/19 17 Bladder Scan completed Chuck VANEGAS, [address], [place], [address], [facility] 06/14/2016 13:22:58 04/05/20 16 Tympanometry completed Asha Bradford [address], [place], [address], [facility] 04/05/2016 13:11:04 04/05/20 16 Audiogram.old completed Asha Bradford [address], [place], [address], [facility] 04/05/2016 13:11:04 11/21/19 15 Other completed Georgi Moctezuma MD [address], [place], [address], [facility] 01/13/2016 00:18:30 10/21/19 15 Other completed Georgi Moctezuma MD [address], [place], [address], [facility] 01/13/2016 00:18:30 04/22/19 00 [place] Teeth Removed completed Georgi Moctezuma MD [address], [place], [address], [facility] 01/12/2016 22:50:32 Oral surgery procedure completed Dena Argueta [facility] 04/06/2016 12:36:17 Imaging Results None recorded. Procedure Notes None recorded. Medical Equipment None Reported. Allergies Allergen ID Allergen Name Allergen Category Reaction Reaction Severity Criticality Documentation Date Start Date Code Code System Note Provider Name and Address Organization Details Recorded Time 624887 latex environme nt,medica tion hives moderate Not available 01/12/2016 94207 91 RxNorm Georgi Moctezuma MD [address], [place], [address], [facility] 6 22:23:54 445190 acetamino phen / hydrocodo ne medicatio n other moderate Not available 04/05/2016 76065 2 RxNorm facia l numbn ess scotty banda null, [facility] 6 12:23:03 962012 Wellbutri n medicatio n Not available Not available Not available 06/18/2016 88833 RxNorm vivid dream s/fri ghten ing ; used w/ post partu m alivia Moctezuma MD, Georgi Costa [address], [place], [address], [facility] 7 11:10:40 552704 adhesive tape environme nt,medica tion Not available Not available Not available 03/16/2020 77010 UNK Aliyah Julian null, [facility] 0 12:21:24 Medications Name Sig Start [...] e 137 mcg (0.1 %) nasal spray [place] 1 spray every day by intranas al [...] Not Available Not Available Not Available FreeStyle [place] Lite kit 03/16 completed Not Available Not [...] Smoking Status Never Smoker 12/11/18 Kathy Guallpa [facility], [place] - [facility] 12/11/2018 16:59:59 Do You Have An Advance Directive? No I Gave Her The Form For The Living Will And Health Power Of Civil Engineer In Training, She Does Want To Be Resuscitated. She Does Not Want To Be Maintained On Chronic Life Support If There Is Little Hope Of A Meaningful Recovery. - 12/18/2018 Information not available 12/18/2018 What Is Your Level Of Alcohol Consumption? None [email or web address] Information not available 10/27/2019 Are You Blind [...] COVID-19 While That Case Was Ill? No [email or web address] Information not available 07/30/2019 In The 14 Days Before Symptom Onset, Have You Had Close Contact With A Person Who Is Under Investigation For COVID-19 While That Person Was Ill? No [email or web address] Information not available 07/30/2019 Have You Been To An Area Known To Be High Risk For COVID-19? No [email or web address] Information not available 07/30/2019 What Type Of Diet Are You Following? REGULAR Low Sodium Information not available 01/12/2016 Which Illicit Or Recreational Drugs Have You Used? None Information not available 12/11/2018 Do You Or Have You Ever Used E-cigarettes Or Vape? 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 No 12/11/18 Mh Information not available 04/06/2016 Have You Traveled Outside Of The [place] In The Last 21 Days (3 Weeks)? No Information not available 04/06/2016 Do You Have Any Roman [employer] Beliefs That May Impact Your Health [...] Not available 04/25 18:44:02 Father Hypertensive disorder [email or web address] Not available 2016 18:44:02 Father Hyperlipidem ia Not available 2016 18:44:02 Paternal Aunt Malignant tumor of cervix [email or web address] Not available 2016 18:44:02 Paternal Aunt Dementia [email or web address] Not a vailable 04/25/2016 18:44:02 Mother Pyelonephrit [...] quadrivalent , PF 1 completed Maile sepulveda [facility] 03/15/2021 12:10:26 COVID-19, mRNA, LNP-S, PF, 30 mcg/0.3 mL dose 1 completed Savana sepulveda [facility] 08/30/2020 10:45:30 COVID-19, mRNA, LNP-S, PF, 30 mcg/0.3 mL dose 1 completed Savana sepulveda [facility] 08/30/2020 10:45:45 COVID-19, mRNA, LNP-S, PF, 30 mcg/0.3 mL dose 1 completed Maile sepulveda [facility] 03/15/2021 11:48:03 Influenza, split virus, trivalent, PF 8 cancelled patient objection Not Available [facility] 05/09/2019 02:33:30 Influenza, MDCK, quadrivalent , PF 8 completed Not Available [facility] 05/09/2019 03:23:32 Influenza, MDCK, quadrivalent , PF 9 completed Not Available [facility] 05/09/2019 03:01:50 Influenza, split virus, quadrivalent , PF 0 completed Savana sepulveda [facility] 01/05/2020 16:31:36 Tdap 3 completed Not Available [facility] 03/07/2020 09:20:47 Past Encounters Encounter ID Performer Location Encounter Start Date Encounter Closed Date Diagnosis/Indication Diagnosis SNOMED-CT Code Diagnosis ICD10 Code Diagnosis Note [id number] Anisha Mcclain [facility] [address] [place] [address] 01/12/2016 10:23:10 01/13/2016 12:09:34 Adult health examination 450268463 Z00.00 Hematology screening test 259440453 Z13.0 Hyperlipid emia screening 633559647 Z13.220 Endocrine/ metabolic screening 497949977 Z13.228 Mixed anxi ety and depressive disorder 886812918 F41.8 Tinnitus 68101758 H93.13 Decreased hearing 216056 001 H91.93 Reduced visual acuity 13 204808 H54.7 [facility] care 01867 5005 Z30.40 [id number] Lv lucas MD, Chandrakant Shipley [facility] [place] [facility] [address] [facility] [address] [place] [address] 04/05/2016 11:57:03 04/05/2016 13:17:18 Tinnitus 03801477 H93.13 At this time the patient has bilateral tinnitus, most likely due to her bilateral hearing loss. Please see plan as described above. FG Allergic r hinitis caused by pollen 97160771 J30.1 At this time the patient has [...] Sensorineu ral hearing loss of bilateral ears 342703511 H90.3 At this time the patient comes [...] will follow up as needed. FG Dizziness 331837475 R42 At this time the patient also complains of an off balance feeling with walking up and down stairs, but does not have any other problems. We will see if this improves on nasal steroid spray. She had no further questions and will follow up as needed for now. FG [id number] Asha Bradford [facility] POS [address] [place] [address],[address] [place] [address] 04/05/2016 13:09:55 04/05/2016 13:12:09 Sensorineural hearing loss of bilateral ears 479021429 H90.3 [id number] Eugenio VANEGAS, Margy Valdivia [facility]EL[facility] [place] [address] [place] [address],[address] [facility] [address] 04/06/2016 12:09:16 04/06/2016 13:47:10 Gynecologic examination 59005670 Z01.419 Screening for malignant neoplasm of cervix 698945384 Z12.4 Menorrhagia 558611729 N9 2.0 History of urinary tract infection 8598180072 107 Z87.440 Surveillan ce of contraception 820727055 Z30.40 [id number] Eugenio VANEGAS, aMrgy Valdivia [facility]NALY[facility] [employer]EL[facility] [place] POS [address] [place] [address],[address] [place] [address] 04/25/2016 17:48:13 04/25/2016 19:53:53 Menorrhagia 510111446 N92.0 Blood in urine 47907815 R31.9 [id number] Rhianna VANEGAS, Georgi Costa [facility] POS [address],[facility] [address] 05/08/2016 10:01:31 05/08/2016 12:08:23 Migraine 08178588 G43.909 Mixed anxi ety and depressive disorder 505181021 F41.8 Carpal davonte simon syndrome 16502828 G56.00 Insomnia 654290065 G47.0 0 Hand pain 30513334 M79.6 42 Vitamin D deficiency 347 55080 E55.9 [id number] Chuck VANEGAS, [facility]OLOGY [facility] POS [address] [place] [address] 06/14/2016 12:22:40 06/14/2016 14:22:12 Microscopic hematuria 991687335 R31.21 she had 2-5 rbc on last ua done 04/26.17-has had full workup done in the past by another urologist and was negative but it was a while agozahida send urine for c/s and cytology-f ollow up for cystoscopy in office Renal colic 9853430 N23 she is having bilateral flank pain-previ ous urologist had checked a renal us but 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-jc l do ct scan for stone search prior to cystoscopy [id number] Rhianna VANEGAS, Georgi Costa [facility] POS [address],[place] [address] 06/18/2016 10:33:06 06/18/2016 12:04:21 Mixed anxiety and depressive disorder 086289522 F41.8 [id number] Chuck VANEGAS, [facility]OLOGY [facility] POS [address] [place] [address] 06/28/2016 12:09:59 06/28/2016 12:45:15 Blood in urine 18134674 R31.9 her cystoscopy shows mild chronic bullous cystitis and a diverticul um, mild grade 1 trabeculat ions-will start on suppressiv e dose macrodanti n for one monthfollo w up in 3mos [id number] Donnell VANEGAS, Luis Soliz [facility] ORTHOPEDI CSURGERY [facility] POS [address] [place] [address] 06/29/2016 11:24:40 07/13/2016 10:46:48 Hand pain 32009622 M79.643 Carpal davonte simon syndrome 91364532 G56.01 G56.02 [id number] Donnell VANEGAS, Luis Soliz [facility] [place] POS [address] [facility] [place] [address] 07/13/2016 11:07:42 07/13/2016 13:24:50 Pain in wrist 29786101 M25.531 Hand pain 75394066 M79.6 43 Carpal davonte simon syndrome 63913946 G56.01 G56.02 [id number] Rhianna VANEGAS, Georgi Costa [facility] [address],[place] [address] 07/16/2016 10:58:41 07/16/2016 11:42:57 Mixed anxiety and depressive disorder 317905438 F41.8 [id number] Donnell VANEGAS, Luis Reynaoli [facility] ORTHOPEDI CSURGERY [place] [address] [place] [address] 08/13/2016 11:24:07 08/13/2016 12:23:07 Hand pain 60312557 M79.641 Pain in wrist 54749641 M 25.531 Carpal davonte simon syndrome 48480967 G56.01 G56.02 [id number] Donnell VANEGAS, [facility] [place] [address] [place] [address] 09/20/2016 11:45:56 09/20/2016 14:44:21 Pain in wrist 69692754 M25.531 M25.532 Hand pain 56146527 M79.6 41 Carpal davonte simon syndrome 01411085 G56.01 G56.02 [id number] Chuck VANEGAS, [facility] [place] POS [address] [facility] [place] [address] 10/04/2016 11:54:33 10/04/2016 12:31:12 Blood in urine 96927695 R31.9 she had history of microhemat uriawas given 3mos of suppressiv e dose abxhas not seen any blood in urinewill check ua/culture Bladder mu scle dysfunction - overactive 558932467 N32.81 she goes to bathroom every 2 hours during day and 2 times at night, occ urge incontinen cetrial of myrbetriq Female str ess incontinence 02900719 N39.3 -she does not require pads for the problemonl y occurs occasional ly with sneezingdi scussed treatment options- e will observe for now [id number] Donnell VANEGAS, Luis Soliz [facility] [address] [place] [address] 10/08/2016 09:47:26 10/08/2016 10:46:23 Pain in wrist 20192951 M25.531 M25.532 Hand pain 72336527 M79.6 41 Carpal davonte simon syndrome 06440518 G56.01 G56.02 [id number] Donnell VANEGAS, Luis Soliz [facility] ORTHOP[facility]I CS[facility] POS [address] [facility] [facility] [place] [address] 11/09/2016 10:50:45 11/09/2016 12:33:48 Pain in wrist 93744042 M25.531 M25.532 Neck pain 63613615 M54.2 Hand pain 41655481 M79.6 41 Carpal davonte simon syndrome 02659937 G56.01 G56.02 [id number] Rhianna VANEGAS, Georgi [facility] [address],[place] [address] 11/21/2016 10:22:19 12/11/2016 16:16:59 Low back pain 113321440 M54.5 Snoring 97913975 R06.83 [id number] Rhianna VANEGAS, Georgi [facility] [address],[place] [address] 01/10/2017 16:20:44 01/10/2017 17:19:55 Pain in left knee 7145065520 05895 M25.562 Depressive disorder 3548 9007 F32.89 Fatigue 96473134 R53.83 [id number] Chuck VANEGAS, Vibha [facility] - UROLOGY [facility] [address] [place] [address] 01/31/2017 11:27:16 01/31/2017 12:47:19 Bladder muscle dysfunction - overactive 941258342 N32.81 she goes to bathroom every 2 hours during day and 2 times at night, occ urge incontinen cemyrbetri q didn't help and wasn't covered Female str ess incontinence 17206356 N39.3 she is more bothered by it latelywoul d like to try physical therapyref erral to ati womens health given [id number] Tete Brian DO [facility]ie [facility]1 [address] [place] [address] 03/08/2017 11:55:53 03/13/2017 00:11:33 Fatigue 01098696 R53.83 --concerns for fatigue and insomnia. Have discussed sleep hygeine techniques with patient and reviewed the sleep study with her. Discussed weight loss and controllin g nasal congestion .--Pt will attempt these and follow up in the next 3 months. Allergic rhinitis 094299 04 J30.9 --nasal congestion Obesity 157180090 E66.9 --discusse d keeping track of her calories and aiming to eat about 500 calories less then what she normally eats.--Pt should f/u in 3 months on weight loss. [id number] Tete Brian DO [facility] AM#1 [address] [place] [address] 06/12/2017 10:00:03 06/12/2017 10:41:36 Active or passive immunization 030926435 Z23 Fatigue 77698296 R53.83 --cont use of breathe right strips and use nasal steroid. Allergic rhinitis 198644 04 J30.9 --nasal congestion continued. Increase cetirizine to 10 mg daily, but go back to 5 mg if she feels overly fatigued. Cont fluticason e and also start azelastine daily. Gastroesop hageal reflux disease 804773342 K21.9 [id number] Tete Brian DO [facility] AM#1 POS [address] [place] [address] 08/12/2017 10:54:36 08/12/2017 11:48:10 Obesity 480095100 E66.9 --discusse d weight loss and diet again Insomnia 008421238 G47.0 0 --pt instructed to take amitriptyl ine daily.--Co unselled on possible side effects. RTC if insomnia worsens Neck pain 81425700 M54.2 --negative adsons test, negative spurling sign. Muscle spasm in b/l neck.--Giv en exercises for neck. OTC tylenol and ibuprofen. RTC as needed. Migraine 94192521 G43.90 9 [id number] Tete Brian DO [facility] AM#1 POS [address] [place] [address] 02/11/2018 10:03:22 02/11/2018 10:50:04 Administration of influenza vaccine 40124173 Z23 Migraine 52635795 G43.90 9 --fioricet , amitriptyl ine and topiramate Insomnia 276780363 G47.0 0 --pt instructed to take amitriptyl ine daily.--Co unselled on possible side effects. RTC if insomnia worsens Environmental allergy 42 0059345 T78.49XA [id number] Shade VANEGAS, Nitin [facility] AM#1 POS [address] [place] [address] 04/02/2018 14:24:14 04/02/2018 15:10:58 Adult health examination 026816297 Z00.00 Migraine 17165864 G43.90 9 [id number] Timbo Mckeon DO [facility]#1 POS [address] [facility] [place] [address] 12/11/2018 16:42:55 12/11/2018 17:56:44 Bladder muscle dysfunction - overactive 336207500 N32.81 she has urinary incontinen ce and requesting a refill of the detrol, this has helped her in the past Body mass index 30+ - obesity 942444512 Z68.39 The patient's current weight is 209# with a height of 5' 1.25 and a correspond ing BMI (Body Mass Index) of 39.2. The medical definition of Obesity is a BMI greater than 30. Your [place] Body Weight is approximat malinda about 116#. [...] migraine prophylaxi s and weight loss. Migraine 82656710 G43.90 9 see the above plan [id number] Timbo Mckeon DO [facility]1 [address] [facility],[address] [place] [address] 12/18/2018 09:57:19 12/18/2018 11:37:10 Adult health examination 193110417 Z00.00 Female Complete Physical Exam: I discussed [...] exercise, diet. Achieve/ma intain ideal body weight. [place] body weight is about 116 pounds,Adv anced directives : I gave the patient the form for LIVING WILL and health power of silver solderer from the [place] [employer], the patient does want to be resuscitat ed but the patient does not want to be maintained on chronic life support if there is little hope of meaningful recovery. Active or passive immunization 289236106 Z23 Flu vaccine today, She is up to date with the Tdap Body mass index 30+ - obesity 892465590 Z68.38 The patient's current weight is 206.75# with a height of 5' 1.25 and a correspond ing BMI (Body Mass Index) of 38.7. The medical definition of Obesity is a BMI greater than 30. Your [place] Body Weight is approximat malinda about 116#. A reduced calorie, reduced carbohydra te weight reduction diet as well as increased activity.. She has lost about 3# since the last visit Hyperhidro sis of axilla 201756343 L74.510 Drysol Jessie.ly to axilla once daily at first and then about three times per week, do not apply to fresh shaven skin. Elevated blood-pressure reading without diagnosis of hypertension 419071826 R03.0 I encouraged the patient to check the blood pressure and log the results. Please follow a reduced sodium diet and maintain/a chieve ideal body weight. [id number] Malka VANEGAS, Cali Carter [facility] - SYSTEMS ANALYST DEVELOPER [facility] POS [address] [place] [address] 07/30/2019 10:48:16 07/30/2019 12:44:41 test positive 215399561 Z32.01 Mild hyper emesis gravidarum 57582049 O21.0 Reviewed and hyperemesi s with patient. Reviewed diet at length. Questions answered. Recommend consider hold PNV. Start vitamin B6, unisom. Ob dating u/s in 1 week. f/u 1wk. Amenorrhea 41061524 N91. 2 Reviewed findings, positive test. [id number] Malka VANEGAS, Cali Carter [facility] - SYSTEMS ANALYST DEVELOPER [facility] STREAM POS [address] [place] [address] 08/04/2019 11:31:16 08/04/2019 13:34:46 Disorder of menstruation 222228366 N92.6 Ob u/s reviewed, show viable iup consistent with LMP dating. Reviewed with patient. Routine an tenatal care 517556235 Z34.81 Z3A.08 Venereal d isease screening 383309401 Z11.3 Advanced m aternal age 350723480 O09.899 [id number] Malka VANEGAS, [facility] - SYSTEMS ANALYST DEVELOPER [facility] POS [address] [place] [address] 7 08/18/2019 11:25:44 08/18/2019 13:21:34 Advanced maternal age 926073939 O09.899 Routine an tenatal care 348980052 Z34.81 Z3A.08 Mild hyper emesis gravidarum 24854054 O21.0 mostly resolved [id number] Malka VANEGAS, [facility] POS [address] [place] [address] 7 09/22/2019 13:57:14 09/22/2019 14:40:34 Multigravida of advanced maternal age 706123268 O09.522 Z3A.15 [id number] Malka VANEGAS, [facility]ST [facility] POS [address] [place] [address] 7 10/20/2019 13:50:29 10/20/2019 15:17:10 Multigravida of advanced maternal age 940154353 O09.523 Z3A.19 [id number] Primitivo VANEGAS, Dickson [facility] - [facility] POS [address] [place] [address] 5 10/27/2019 10:57:43 10/27/2019 14:41:15 Advanced maternal age 584474833 O09.899 expo sure to alcohol 914522920 O35.4XX9 expo sure to drug 764157646 O35.5XX9 Tolterodin e exposure [id number] Malka VANEGAS, [facility] SYSTEMS [facility]NALYST [facility] POS [address] [place] [address] 7 11/24/2019 14:02:44 11/24/2019 15:47:27 Advanced maternal age 115893765 O09.899 Z3A.24 [id number] Malka VANEGAS, [facility] - SYSTEMS ANALYST DEVELOPER [facility] POS [address] [place] [address] 7 12/08/2019 13:27:12 12/08/2019 15:22:20 Gestational diabetes mellitus 51303320 O24.410 [id number] [facility] - [facility] POS [address] [place] [address] 12/17/2019 17:23:54 12/17/2019 17:24:51 [id number] Dickson Langford MD [facility] - [facility] [employer] POS [address] [place] [address] 12/22/2019 08:47:44 12/22/2019 11:38:14 Glucose tolerance test outside reference range 366503050 R73.09 Gestationa l diabetes mellitus 81077274 O24.410 [id number] Malka VANEGAS, [facility] - SYSTEMS ANALYST DEVELOPER [facility] POS [address] [place] [address] 12/22/2019 15:50:31 12/23/2019 10:14:48 Gestational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 Fetus Heart Rate Present A 150 Fetus Movement Comments ob/fu -Initial ob labs drawn today- c/o pelvic cramping due to constipation on Saturday, Dr. Marquez prescribed Dulcolax (bisacodyl) 5 mg tablet,delayed release. Pt has been feeling better. No other c/o. labs today. [place] test reviewed. Patient would like to proceed. N/V much improved. PTL signs and symptoms reviewed. f/u 5wk. Flowsheet Date 09/22/2019 Jackson Score Blood Edema Fundus Height Fundus Units Glucose Ketones Leukocytes Nitrite Labor Signs Protein Cervic Dilation Cervic Effacement Cervic Station trace none neg Type Weight in lbs Pre/Post Dialysis Refused With clothes 205.265892662833 BP Diastolic BP Location Tested BP Systolic BP Type 80 L arm 132 sitting Fetus Heart Rate Present A 150 Fetus Movement Comments ob/fu - nausea has decreased . c/o pelvic pain when standing or shifting side to side in bed. Reviewed [place] neg. No other c/o. PTL signs and symptoms reviewed. Sched [facility] u/s. f/u 4wk. Flowsheet Date 10/20/2019 Jackson Score Blood Edema Fundus Height Fundus Units Glucose Ketones Leukocytes Nitrite Labor Signs Protein Cervic Dilation Cervic Effacement Cervic Station 20 none neg Type Weight in lbs Pre/Post Dialysis Refused With clothes 208.78296185546 BP Diastolic BP Location Tested BP Systolic BP Type 78 R arm 120 sitting Fetus Heart Rate Present A 150 Fetus Movement A Yes Comments ob/fu - MFM scheduled on 10/26. c/o continues to have nausea, frequent crackling in her right ear, nasal congestion, mild nose bleeds. No other c/o. Exam neg, TM neg. recommend saline mist. [facility] u/s sched 10/26. PTL signs and symptoms [...] in lbs Pre/Post Dialysis Refused With clothes 206.296085401020 BP Diastolic BP Location Tested BP Systolic BP Type 72 L arm 124 sitting Fetus Heart Rate Present A 150 Fetus Movement A Yes Comments Glucose and cbc labs today. Ingrown hair has been having some discomfort. Exam neg. 1hr gluc today. Reviewed [facility] u/s. PTL signs and symptoms reviewed. f/u 2wk. Flowsheet Date 12/08/2019 Jackson Score Blood Edema Fundus Height Fundus Units Glucose Ketones Leukocytes Nitrite Labor Signs Protein Cervic Dilation Cervic Effacement Cervic Station none neg Type Weight in lbs Pre/Post Dialysis Refused With clothes 208.651559730929 BP Diastolic BP Location Tested BP Systolic BP Type 70 L arm 118 sitting Fetus Heart Rate Present A 150 Fetus Movement A Yes Comments ob fu. No complains. Reviewe d 3hr gtt pos. refer to [facility], dietitian. Send glucometer, chem strips, lancets. PTL [...] in lbs Pre/Post Dialysis Refused With clothes 207.668403865202 BP Diastolic BP Location Tested BP Systolic BP Type 72 L arm 124 sitting Fetus Heart Rate Present A 145 Fetus Movement A Yes Comments Pt c/o pain on hips when sle eping. Occ tightening muscle on ankle and foot. Denies other c/o. MFM u/s reviewed. BS fasting intermitt elevated, adjusting diet per acid purifier. PTL signs and symptoms reviewed. f/u 2wk. Flowsheet Date 01/05/2020 Jackson Score Blood Edema Fundus Height Fundus Units Glucose Ketones Leukocytes Nitrite Labor Signs Protein Cervic Dilation Cervic Effacement Cervic Station 32 none neg Type Weight in lbs Pre/Post Dialysis Refused With clothes 205.388161085739 BP Diastolic BP Location Tested BP Systolic [...] in lbs Pre/Post Dialysis Refused With clothes 205.144188422806 BP Diastolic BP Location Tested BP Systolic [...] in lbs Pre/Post Dialysis Refused With clothes 205.406242660948 BP Diastolic BP Location Tested BP Systolic [...] in lbs Pre/Post Dialysis Refused With clothes 204.875292170613 BP Diastolic BP Location Tested BP Systolic [...] in lbs Pre/Post Dialysis Refused With clothes 205.047380939033 BP Diastolic BP Location Tested BP Systolic [...] in lbs Pre/Post Dialysis Refused With clothes 205.467434734588 BP Diastolic BP Location Tested BP Systolic [...] in lbs Pre/Post Dialysis Refused With clothes 201.029021485535 BP Diastolic BP Location Tested BP Systolic BP Type 80 L arm 120 sitting Fetus Heart Rate Present A 145 Fetus Movement A Yes Comments ob/fu - Pt was at [facility] L&D on Saturday due to having contractions- [...] in lbs Pre/Post Dialysis Refused With clothes 192.495624232268 BP Diastolic BP Location Tested BP Systolic [...]
== END 2024-07-30 13:31 | disposition home or self-care (01) ==
LOC: HO.HMGCX 13:30
PROVIDERS: PCP Internal Medicine; Visit Provider Obstetrics & Gynecology
DX: N93.9 Abnormal uterine and vaginal bleeding, unspecified (principal)
CPT/HCPCS: 76830; 76856

== ENCOUNTER → 2024-07-30 13:31 | Outpatient (BNV) | payer OTHER, SELFPAY | PROVIDERS: PCP Internal Medicine; Visit Provider Radiology Diagnostic Radiology | DX: N93.9 Abnormal uterine and vaginal bleeding, unspecified (principal) | CPT/HCPCS: 76830; 76856 ==

== ENCOUNTER 2024-08-04 12:44 | Outpatient (AMB) | payer OTHER, SELFPAY ==
--- NOTE | 2024-08-04 12:58 | A.OFFVIS_ITS ---
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 Otherwise unremarkable pelvic ultrasound. [facility] Medical History Nausea and vomiting in adult Acute respiratory disease Major depressive disorder, recurrent, severe with psychotic features Decreased hearing Tinnitus Reduced visual acuity Pyelonephritis (03/22/15) (08/04/19) Obesity (12/12/18) Migraine Menorrhagia Irritable bowel syndrome Insomnia Hiatal hernia Hemorrhoids Gastroesophageal reflux disease Fracture of hand (04/22/09) Female stress incontinence Blood in urine Severe carpal tunnel syndrome of right wrist Medical clearance for psychiatric admission Hypertriglyceridemia Positive Tinel's sign Positive Phalen maneuver Cervicalgia HTN (hypertension) Decreased hearing of both ears Environmental and seasonal allergies Tinnitus of both ears Knee pain Excessive daytime sleepiness Loud snoring Vitamin D deficiency Impaired fasting glucose Mixed dyslipidemia Morbid obesity Hiatal hernia with gastroesophageal reflux Family history of premature CAD Annual visit for general adult medical examination with abnormal findings Surgical History H/O endoscopy H/O wisdom tooth extraction Family History Father Substance use disorder Mental health disorder Alcoholism Myocardial infarction acute, Onset Age: 55 Depression Maternal Uncle Testicular cancer Social History Household Members: Family Household Members Other:: and 2 children Housing: House Do you presently have visiting nurse or other home services: No Alcohol intake: current Alcohol intake frequency: holidays/special occasions only Patient Tobacco Use Status: Never used Tobacco e-Cigarette/Vaping Use: Never Used Substance Use Type: Marijuana service: No Current occupational status: unemployed and other 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 hysteroscopy D&C) & the risks were discussed with the patient including but not limited: pain, uterine perforation, bleeding, infection, p ossible injury to bladder, bowel, ureter, possible need for blood transfusion with all its possible risks. The patient verbalized understanding all questions answered and signed consent. Urine test done in the office was negative The patient was placed into the dorsal lithotomy position; a speculum was inserted in the vagina. Using aseptic technique for the procedure, the cervix was cleansed with Betadine. The anterior lip of the cervix was grasped with a single tooth tenaculum. The uterus was sounded to 7 cm with a 4 mm Pipelle was used. Tissues samples were obtained and placed in formalin, in a patient labeled container and sent to the pathology department. At the end of the procedure, there was minimal bleeding noted The patient tolerated the procedure well and was discharged in good condition with the following instructions: Nothing in the vagina until the bleeding stops. No sex until the bleeding stops, to call if any of the following occurs: fever (>100.4), flu-like symptoms, abdominal pain, heavy bleeding, four smelling vaginal discharge. The patient was instructed to schedule a Follow up appointment in 2 weeks to discuss pathology results of the biopsy and treatment options. This note was generated with a voice recognition program. Some errors may have been overlooked during the review of this note. Sometimes these errors may affect the content or meaning of a given sentence. 72806-Bnlglmaruki Biopsy IUD Insert/Removal Details Details: The patient is presenting for IUD removal and IUD reinsertion. Her last menstrual period was within the last 5 days, Urine test was done in the office and was negative; All the contraindications were excluded. The following possible complications were discussed with the patient: Intrauterine , Ectopic , Sepsis, Pelvic Infection, Irregular Bleeding and Amenorrhea, Perforation, Expulsion, Ovarian Cysts, Breast Cancer. The following adverse effects were discussed with the patient: alteration of menstrual bleeding pattern, including: unscheduled uterine bleeding decreased uterine bleeding increased scheduled uterine bleeding female genital tract bleeding ,amenorrhea , genital discharge , vulvovaginitis , breast pain , benign ovarian cyst and associated complications , dysmenorrhea , Gastrointestinal disorders abdominal/pelvic pain, headache/migraine , back pain , acne , depression Alternative options were discussed with the patient including but not limited: control pills, patch, NuvaRing, Depo-medroxyprogesterone acetate, Nexplanon, copper IUD, sterilization, vasectomy, others The procedure was explained in detail to patient , at the end patient signed the informed consent obtained. Alternative options were discussed with the patient The patient signed the consent and agreed with the plan; all questions answered. Urine test was done in the office and was negative Preop dx: Requesting IUD removal and Reinsertion Op: IUD removal and Mirena insertion Post op dx: same EBL= 10 cc Procedure: The patient was put in the dorsal lithotomy position a speculum was inserted in the vagina the IUD thread identified. Using a Mariposa clamp the thread was grasped and the IUD pulled out with no complications. A no touch technique was used throughout the procedure. A speculum was placed into vagina and cervix was cleaned with betadine). A tenaculum was placed. A plastic sound was advanced through the external and internal os until it reached the fundus of the uterus, the depth was 8 cm. The sound was then withdrawn. The IUD was loaded in a sterile manner and advanced into position. The string was visualized and cut to 3 cm. Tenaculum site hemostatic. All instruments removed from vagina. Patient tolerated the procedure well. NO complications were noted. Patient was instructed to call for fever over 100.4, significant pain unrelieved by Motrin, IUD expulsion, heavy bleeding, or abnormal discharge. In addition, the following clinical considerations were discussed with the patient to call for removal: A stroke or heart attack ,Very severe or migraine headaches ,Unexplained fever ,Yellowing of the skin or whites of the eyes, as these may be signs of serious liver problems , or suspected , Pelvic pain or pain during sex ,HIV positive seroconversion in herself or her partner , Possible exposure to sexually transmitted infections Unusual vaginal discharge or genital sores , severe vaginal bleeding or bleeding that lasts a long time, or if she misses a menstrual period, Inability to feel Mirena's threads Counseled the patient that the IUD does not protect against STI's, recommended use of condoms for the first 7 days post insertion and explained to the patient that condoms are recommended for patients at risk for sexually transmitted infections. Follow up appointment made for 4 weeks following insertion. Date of removal in no more than five years for DUB treatment and 8 years for contraception from today?s date was d/w patient. This note was generated with a voice recognition program. Some errors may have been overlooked during the review of this note. Sometimes these errors may affect the content or meaning of a given sentence. 15862-ZND Insertion 10427-QPA Removal Procedure code (CPT) selection complete Office Meds Mirena 21 mcg/24 hr (up to 8 years) 52 mg intrauterine device Performing Provider: Brian Catherine MD Performing Location: [facility] Documented (not given) by: Brian Catherine MD on 08/04/24 13:28 Dose Route Admin Location Dispensed Lot Number Expiration Date [facility] Pre Fabricator 1 device intrauterine ea Assessment & Plan Assessment & Plan (1) Malpositioned IUD: Code(s): T83.32XA - Displacement of intrauterine contraceptive device, initial encounter Category: Medical Plan: Discussed with the patient the results of the IUD malpositioned by ultrasound, recommended Mirena IUD removal and reinsertion, which was done, see procedure note (2) Abnormal uterine bleeding: Comment: On Mirena IUD Code(s): N93.9 - Abnormal uterine and vaginal bleeding, unspecified Category: Medical Plan: EMB done, see procedure note (3) Encounter for IUD removal and reinsertion: Code(s): Z30.433 - Encounter for removal and reinsertion of intrauterine contraceptive device Plan: Mirena IUD removed, new Mirena IUD inserted. See procedure note. Orders: Orders AMB Endometrial Biopsy Today N93.9 - Abnormal uterine and vaginal bleeding, unspecified AMB IUD Insertion/Removal - Practice Supplied Today T83.32XA - Displacement of intrauterine contraceptive device, initial encounter, Z30.433 - Encounter for removal and reinsertion of intrauterine contraceptive device Medications: New Mirena (levonorgestrel) 1 device intrauterine ONCE 1 ea 0RF IUD removal and reinsertion NS T83.32XA - Displacement of intrauterine contraceptive device, initial encounter, Z30.433 - Encounter for removal and reinsertion of intrauterine contraceptive device Coding Level of Care Code Est Pt Level 3 (42402) Procedure Only Diagnoses Malpositioned IUD T83.32XA Abnormal uterine bleeding N93.9 Encounter for IUD removal and reinsertion Z30.433 CPT Codes Endometrial Biopsy - CPT: 53636-Fsbjcfjeeer Biopsy ([id number]) Details - CPT: 77962-SFE Insertion ([id number]) Details - CPT: 49815-BJJ Removal ([id number])
[2024-08-04 12:59] VITALS: BP 132/78; BMI 47.2
--- OUTSIDE RECORDS SUMMARY | 2024-08-04 15:30 | XMS_ITS | Data Portability ---
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 This visit was conducted via Digital Orchid website [employer] using both audio and video during the 2019 COVID-19 pandemic. Patient consented to non face to face service. Patient location: car Provider location: [facility] Start time: 1417 End time: 142 Participants [...] This visit was conducted via telehealth website [employer]Crow[employer] using both audio and video during the 2020. Patient consented to non face to face service. Patient location: home Provider location: [facility] Start time: 1424 End time: 1429 Participants [...] This visit was conducted via telehealth website [employer]Crowdz using both audio and video during the 2019. Patient consented to non face to face service. Patient location: home Provider location: [facility] Start time: 1352 End time: 1401 Participants [...] mg capsule,del ayed release 2021 022 [facility], [address], [place], [address], 15:13:01 duloxetine 60 mg capsule,del ayed release 04/06/ 2022 04/06/2 022 [facility], [address], [place], [address], 2 15:12:56 hydroxyzine HCl 50 mg tablet 2021 022 [facility], [address], [place], [address], 2 15:12:57 hydroxyzine HCl 50 mg tablet 2020 021 [facility], [address], [place], [address], 15:27:21 duloxetine 30 mg capsule,del ayed release 2020 021 [facility], [address], [place], [address], 15:27:17 duloxetine 60 mg capsule,del ayed release 2020 021 [facility], [address], [place], [address], 15:27:17 Patient TargetsNo targets recorded. Patient InstructionsNo instructions recorded. Reason for Referral None Reported. Problems Name Problem SNOMED Code Status Onset Date Resolution Date Notes Provider Name and Address Organization Details Recorded Time Multiple environm ental allergie s Active scotty sepulveda [facility] 6 12:23:04 Irritabl e bowel syndrome 50580445 Active celiac disease Ab testing Neg 11/03; improved w/ Gluten free diet scotty sepulveda [facility] 6 12:23:04 Gastroes ophageal reflux disease 922857446 Active scotty sepulveda [facility] 6 12:23:04 Mixed anxiety and depressi ve disorder 024821258 Active hx of post depressi on and took lexapro but felt poor response , wellbutr in was very neg side effects (bad vivid dreams of her hurting her family); zoloft was very good response but had to stop when breast feeding bad w/d (didn't wean) scotty sepulveda [facility] 6 12:23:03 Migraine 70195645 [facility] 12:[facility]03 Hiatal hernia 40890333 [facility] 12:23:04 Hemorrho ids 17657695 Completed 12/11/2018 tx'd w/ anusol-H C Timbo Mckeon DO [address], [place], [address] , [facility] 9 17:20:55 Female stress incontin ence 93250218 [facility] 7 18:34:40 Pyelonep hritis 26011563 Completed 201412/11/2018 tx'd w/ Levaquin Timbo Mckeon DO [address], [place], [address] , [place] [facility] 9 17:19:51 Insomnia 007747644 [facility] 6 12:23:03 Fracture of hand 80546436 Completed 200912/11/2018 Left Timbo Mckeon DO [address], [place], [address] , [place] [facility] 9 17:20:04 Tinnitus 44645304 [facility] 6 12:23:04 Decrease d hearing 670977527 Completed 12/11/2018 Timbo Mckeon DO [address], [place], [address] , [place] [facility] 9 17:19:28 Reduced visual acuity 55386033 Active scotty banda null, [place] - [facility] 6 12:23:04 Sensorin eural hearing loss of bilatera l ears 330247156 Active Asha Bradford [address], [place], [address] , [place] - [facility] 6 13:11:25 Menorrha obi 758399858 Active Margy Becker MD [address], [place], [address] , [place] - [facility] 7 22:56:04 Blood in urine 48070495 Completed 12/11/2018 Timbo Mckeon DO [address], [employer], [address] , [place] [facility] 9 17:19:34 Obesity 908407607 Active 2018 Timbo Mckeon DO [address], [employer] [place], [address] , [place] [facility] 9 01:18:28 Pregnanc y 30774347 Completed 201903/16/2020 Aliyahjanet Whitehead null, [place] - [facility] 0 12:25:25 Gestatio nal diabetes mellitus class A2 63597476 Active 2019 Aliyahjanet White[place] null, [place] - [facility] 0 12:25:22 Gestatio nal diabetes mellitus class A2 74062008 Completed 2019 Aliyahjanet Whitehead null, [place] - [facility] 0 12:25:22 Depressi ve disorder 37423911 Active 2020 Yaya Casanova DO [address], [place], [address] , [place] [facility] 1 15:54:10 Notes:hx plantar fasciitis; hx [...] Non-Stress Test completed Malka VANEGAS, [address]i [address], [place], [address], [facility] 02/25/2020 13:33:54 02/18/20 20 Non-Stress Test completed Cali Ace MD [address], [place], [address], [facility] 02/18/2020 15:49:47 02/11/20 20 Non-Stress Test completed Cali Ace MD [address], [place], [address], [facility] 02/11/2020 15:03:18 01/12/20 20 Non-Stress Test completed Cali Ace MD [address], [place], [address], [place] [facility] 01/12/2020 18:21:04 12/19/19 19 Date of Last Pap Smear completed Timbo Mckeon DO [address], [place], [address], [facility] 12/24/2018 14:45:47 06/30/19 17 Ortho Corticosteroid Injection completed Vy Feliciano [facility] 06/29/2016 12:26:26 06/29/19 17 Cystoscopy (female) completed Chuck VANEGAS, [address], [place], [address], [facility] 06/28/2016 12:41:47 06/14/19 17 Bladder Scan completed Chuck VANEGAS, [address], [place], [address], [facility] 06/14/2016 13:22:58 04/05/20 16 Tympanometry completed Asha Bradford [address], [place], [address], [facility] 04/05/2016 13:11:04 04/05/20 16 Audiogram.old completed Asha Bradford [address], [place], [address], [facility] 04/05/2016 13:11:04 11/21/19 15 Other completed Georgi Moctezuma MD [address], [place], [address], [facility] 01/13/2016 00:18:30 10/21/19 15 Other completed Georgi Moctezuma MD [address], [place], [address], [facility] 01/13/2016 00:18:30 04/22/19 00 Ruskin Teeth Removed completed Georgi Moctezuma MD [address] [facility], [place], [address], [facility] 01/12/2016 22:50:32 Oral surgery procedure completed Dena Argueta [facility] 04/06/2016 12:36:17 Imaging Results None recorded. Procedure Notes None recorded. Medical Equipment None Reported. Allergies Allergen ID Allergen Name Allergen Category Reaction Reaction Severity Criticality Documentation Date Start Date Code Code System Note Provider Name and Address Organization Details Recorded Time 019405 latex environme nt,medica tion hives moderate Not available 01/12/2016 45952 91 RxNorm Georgi Moctezuma MD [address], [place], [address], [facility] 6 22:23:54 813649 acetamino phen / hydrocodo ne medicatio n other moderate Not available 04/05/2016 15742 2 RxNorm facia l numbn ess scotty banda null, [facility] 6 12:23:03 909171 Wellbutri n medicatio n Not available Not available Not available 06/18/2016 72050 RxNorm vivid dream s/fri ghten ing ; used w/ post partu m alivia Moctezuma MD, Georgi Costa [address], [place], [address], [facility] 7 11:10:40 005018 adhesive tape environme nt,medica tion Not available Not available Not available 03/16/2020 32910 UNK Aliyah Julian null, [facility] 0 12:21:24 Medications Name Sig Start [...] e 137 mcg (0.1 %) nasal spray Shannon 1 spray every day by intranas al [...] Not Available Not Available Not Available [facility] [place] [facility] Lite kit 03/16 completed Not Available Not [...] Status Never Smoker 12/11/18 Kathy Guallpa [facility], [place] - [facility] 12/11/2018 16:59:59 Do You Have An Advance Directive? No I Gave Her The Form For The Living Will And Health Power Of Net Application Support Specialist, She Does Want To Be Resuscitated. She Does Not Want To Be Maintained On Chronic Life Support If There Is Little Hope Of A Meaningful Recovery. - 12/18/2018 Information not available 12/18/2018 What Is Your Level Of Alcohol Consumption? None Information not available 10/27/2019 Are You Blind [...] COVID-19 While That Case Was Ill? No [email or web address] Information not available 07/30/2019 In The 14 Days Before Symptom Onset, Have You Had Close Contact With A Person Who Is Under Investigation For COVID-19 While That Person Was Ill? No Information not available 07/30/2019 Have You Been To An Area Known To Be High Risk For COVID-19? No [email or web address] Information not available 07/30/2019 What Type Of Diet Are You Following? REGULAR Low Sodium Information not available 01/12/2016 Which Illicit Or Recreational Drugs Have You Used? None Information not available 12/11/2018 Do You Or Have You Ever Used E-cigarettes Or Vape? 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 No 12/11/18 Mh Information not available 04/06/2016 Have You Traveled Outside Of The [place] In The Last 21 Days (3 Weeks)? No Information not available 04/06/2016 Do You Have Any Zoroastrianism Beliefs That May Impact Your Health Care Decisions? No Does Not Follow Any Adventism Information not available 12/11/2018 Did You Hurt Yourself When You Fell In The Last Year? No 12/11/18 Mh Information not available 04/06/2016 Education: 12 Information not available 12/11/2018 Marital Status Informatio n not available 01/12/2016 What Was The Date Of Your Most Recent Tobacco Screening? 09/12/2020 [email or web address] Information not available 09/15/2020 Are You Sexually [...] Details LastModified Time Father Myocardial infarction 55 [email or web address] Not available 04/25 18:44:02 Father Hypertensive disorder [email or web address] Not available 2016 18:44:02 Father Hyperlipidem ia Not available 2016 18:44:02 Paternal Aunt Malignant tumor of cervix [email or web address] Not available 2016 18:44:02 Paternal Aunt Dementia [email or web address] Not a vailable 04/25/2016 18:44:02 Mother Pyelonephrit [...] , PF [address] [facility] 03/15/2021 12:10:26 COVID-19, mRNA, LNP-S, PF, 30 mcg/0.3 mL dose [address] [facility] 08/30/2020 10:45:30 COVID-19, mRNA, LNP-S, PF, 30 mcg/0.3 mL dose [address] [facility] 08/30/2020 10:45:45 COVID-19, mRNA, LNP-S, PF, 30 mcg/0.3 mL dose [address] [facility] 03/15/2021 11:48:03 Influenza, split virus, trivalent, PF 8 cancelled patient objection Not Available [facility] 05/09/2019 02:33:30 Influenza, MDCK, quadrivalent , PF 8 completed Not Available [facility] 05/09/2019 03:23:32 Influenza, MDCK, quadrivalent , PF 9 completed Not Available [facility] 05/09/2019 03:01:50 Influenza, split virus, quadrivalent , PF [address] [facility] 01/05/2020 16:31:36 Tdap 3 completed Not Available [facility] 03/07/2020 09:20:47 Past Encounters Encounter ID Performer Location Encounter Start Date Encounter Closed Date Diagnosis/Indication Diagnosis SNOMED-CT Code Diagnosis ICD10 Code Diagnosis Note [id number] Anisha Mcclain [facility] [address] [place] [address] 01/12/2016 10:23:10 01/13/2016 12:09:34 Adult health examination 129034713 Z00.00 Hematology screening test 740839529 Z13.0 Hyperlipid emia screening 662077521 Z13.220 Endocrine/ metabolic screening 832960855 Z13.228 Mixed anxi ety and depressive disorder 647879225 F41.8 Tinnitus 56554344 H93.13 Decreased hearing 453407 001 H91.93 Reduced visual acuity 13 652430 H54.7 [facility] care 76568 5005 Z30.40 [id number] Lv lucas MD, Chandrakant Shipley [facility] [place] [facility] [address] [facility] [facility] [address] [place] [address] 04/05/2016 11:57:03 04/05/2016 13:17:18 Tinnitus 05680486 H93.13 At this time the patient has bilateral tinnitus, most likely due to her bilateral hearing loss. Please see plan as described above. FG Allergic r hinitis caused by pollen 15836232 J30.1 At this time the patient has [...] Sensorineu ral hearing loss of bilateral ears 159879074 H90.3 At this time the patient comes [...] will follow up as needed. FG Dizziness 114083516 R42 At this time the patient also complains of an off balance feeling with walking up and down stairs, but does not have any other problems. We will see if this improves on nasal steroid spray. She had no further questions and will follow up as needed for now. FG [id number] Asha Bradford [facility] [place] [facility] [address] [place] [address],[address] [place] [address] 04/05/2016 13:09:55 04/05/2016 13:12:09 Sensorineural hearing loss of bilateral ears 689821135 H90.3 [id number] Eugenio VANEGAS, Margy Valdivia [facility] [place] [facility] [address] [place] [address],[address] [place] [address] 04/06/2016 12:09:16 04/06/2016 13:47:10 Gynecologic examination 83509062 Z01.419 Screening for malignant neoplasm of cervix 731636529 Z12.4 Menorrhagia 094907553 N9 2.0 History of urinary tract infection 9542912917 107 Z87.440 Surveillan ce of contraception 613241924 Z30.40 [id number] Eugenio VANEGAS, Margy Valdivia [facility] [place] [facility] [address] [place] [address],[address] [place] [address] 04/25/2016 17:48:13 04/25/2016 19:53:53 Menorrhagia 514510585 N92.0 Blood in urine 10227594 R31.9 [id number] Rhianna VANEGAS, Georgi Costa [facility] [address],[facility] [address] 05/08/2016 10:01:31 05/08/2016 12:08:23 Migraine 47045008 G43.909 Mixed anxi ety and depressive disorder 250934166 F41.8 Carpal davonte simon syndrome 86603523 G56.00 Insomnia 155222456 G47.0 0 Hand pain 53766455 M79.6 42 Vitamin D deficiency 347 78710 E55.9 [id number] Chuck VANEGAS, [facility] POS [address] [place] [address] 06/14/2016 12:22:40 06/14/2016 14:22:12 Microscopic hematuria 528612863 R31.21 she had 2-5 rbc on last ua done 04/26.17-has had full workup done in the past by another urologist and was negative but it was a while agozahida send urine for c/s and cytology-f ollow up for cystoscopy in office Renal colic 6558616 N23 she is having bilateral flank pain-previ ous urologist had checked a renal us but this may not curing pickling packer renal stones-jc l do ct scan for stone search prior to cystoscopy [id number] Rhianna VANEGAS, Georgi Costa [facility] POS [address],[place] [address] 06/18/2016 10:33:06 06/18/2016 12:04:21 Mixed anxiety and depressive disorder 977383484 F41.8 [id number] Chuck VANEGAS, [facility] POS [address] [place] [address] 06/28/2016 12:09:59 06/28/2016 12:45:15 Blood in urine 44570146 R31.9 her cystoscopy shows mild chronic bullous cystitis and a diverticul um, mild grade 1 trabeculat ions-will start on suppressiv e dose macrodanti n for one monthfollo w up in 3mos [id number] Donnell VANEGAS, Luis Soliz [facility] POS [address] [place] [address] 06/29/2016 11:24:40 07/13/2016 10:46:48 Hand pain 14773643 M79.643 Carpal davonte simon syndrome 31884524 G56.01 G56.02 [id number] Donnell VANEGAS, Luis Soliz [facility] [place] POS [address] [place] [address] 07/13/2016 11:07:42 07/13/2016 13:24:50 Pain in wrist 76043464 M25.531 Hand pain 75881780 M79.6 43 Carpal davonte simon syndrome 42193598 G56.01 G56.02 [id number] Rhianna VANEGAS, Georgi Costa [facility] [address],[place] [address] 07/16/2016 10:58:41 07/16/2016 11:42:57 Mixed anxiety and depressive disorder 402142280 F41.8 [id number] Donnell VANEGAS, Luis Reynaoli [facility] [place] POS [address] [place] [address] 08/13/2016 11:24:07 08/13/2016 12:23:07 Hand pain 48053034 M79.641 Pain in wrist 03337796 M 25.531 Carpal davonte simon syndrome 56347025 G56.01 G56.02 [id number] Donnell VANEGAS, [facility] [place] POS [address] [place] [address] 09/20/2016 11:45:56 09/20/2016 14:44:21 Pain in wrist 03229803 M25.531 M25.532 Hand pain 39270789 M79.6 41 Carpal davonte simon syndrome 08559688 G56.01 G56.02 [id number] Chuck VANEGAS, [facility] [place] POS [address] [place] [address] 10/04/2016 11:54:33 10/04/2016 12:31:12 Blood in urine 25736775 R31.9 she had history of microhemat uriawas given 3mos of suppressiv e dose abxhas not seen any blood in urinewill check ua/culture Bladder mu scle dysfunction - overactive 077888246 N32.81 she goes to bathroom every 2 hours during day and 2 times at night, occ urge incontinen cetrial of myrbetriq Female str ess incontinence 02519814 N39.3 -she does not require pads for the problemonl y occurs occasional ly with sneezingdi scussed treatment options- e will observe for now [id number] Donnell VANEGAS, Luis Soliz [facility] [address] [place] [address] 10/08/2016 09:47:26 10/08/2016 10:46:23 Pain in wrist 20218278 M25.531 M25.532 Hand pain 74820839 M79.6 41 Carpal davonte simon syndrome 46044184 G56.01 G56.02 [id number] Donnell VANEGAS, Luis Soliz [facility] POS [address] [facility] [place] [address] 11/09/2016 10:50:45 11/09/2016 12:33:48 Pain in wrist 53969275 M25.531 M25.532 Neck pain 20075388 M54.2 Hand pain 94976715 M79.6 41 Carpal davonte simon syndrome 45803851 G56.01 G56.02 [id number] Rhianna VANEGAS, Georgi [facility] [address],[place] [address] 11/21/2016 10:22:19 12/11/2016 16:16:59 Low back pain 377583686 M54.5 Snoring 67011156 R06.83 [id number] Rhianna VANEGAS, Georgi [facility] [address],[place] [address] 01/10/2017 16:20:44 01/10/2017 17:19:55 Pain in left knee 3047384424 94137 M25.562 Depressive disorder 3548 9007 F32.89 Fatigue 87965279 R53.83 [id number] Chuck VANEGAS, Vibha [facility] [address] [place] [address] 01/31/2017 11:27:16 01/31/2017 12:47:19 Bladder muscle dysfunction - overactive 919719906 N32.81 she goes to bathroom every 2 hours during day and 2 times at night, occ urge incontinen cemyrbetri q didn't help and wasn't covered Female str ess incontinence 87083077 N39.3 she is more bothered by it latelywoul d like to try physical therapyref erral to ati wom[facility] health given [id number] Tete Brian DO [facility] [address] [place] [address] 03/08/2017 11:55:53 03/13/2017 00:11:33 Fatigue 23767572 R53.83 --concerns for fatigue and insomnia. Have discussed sleep hygeine techniques with patient and reviewed the sleep study with her. Discussed weight loss and controllin g nasal congestion .--Pt will attempt these and follow up in the next 3 months. Allergic rhinitis 080190 04 J30.9 --nasal congestion Obesity 585626300 E66.9 --discusse d keeping track of her calories and aiming to eat about 500 calories less then what she normally eats.--Pt should f/u in 3 months on weight loss. [id number] Tete Brian DO [facility] [address] [place] [address] 06/12/2017 10:00:03 06/12/2017 10:41:36 Active or passive immunization 316484665 Z23 Fatigue 77455820 R53.83 --cont use of breathe right strips and use nasal steroid. Allergic rhinitis 574626 04 J30.9 --nasal congestion continued. Increase cetirizine to 10 mg daily, but go back to 5 mg if she feels overly fatigued. Cont fluticason e and also start azelastine daily. Gastroesop hageal reflux disease 267087688 K21.9 [id number] Tete Brian DO [facility] AM#1 POS [address] [place] [address] 08/12/2017 10:54:36 08/12/2017 11:48:10 Obesity 325226426 E66.9 --discusse d weight loss and diet again Insomnia 791911292 G47.0 0 --pt instructed to take amitriptyl ine daily.--Co unselled on possible side effects. RTC if insomnia worsens Neck pain 69000866 M54.2 --negative adsons test, negative spurling sign. Muscle spasm in b/l neck.--Giv en exercises for neck. OTC tylenol and ibuprofen. RTC as needed. Migraine 85342140 G43.90 9 [id number] Tete Brian DO [facility] AM#1 POS [address] [place] [address] 02/11/2018 10:03:22 02/11/2018 10:50:04 Administration of influenza vaccine 42211092 Z23 Migraine 62507770 G43.90 9 --fioricet , amitriptyl ine and topiramate Insomnia 393201092 G47.0 0 --pt instructed to take amitriptyl ine daily.--Co unselled on possible side effects. RTC if insomnia worsens Environmental allergy 42 8016706 T78.49XA [id number] Shade VANEGAS, Nitin [facility] AM#1 POS [address] [place] [address] 04/02/2018 14:24:14 04/02/2018 15:10:58 Adult health examination 219645037 Z00.00 Migraine 27582388 G43.90 9 [id number] Timbo Mckeon DO [facility] POS [address] [facility] [place] [address] 12/11/2018 16:42:55 12/11/2018 17:56:44 Bladder muscle dysfunction - overactive 503946602 N32.81 she has urinary incontinen ce and requesting a refill of the detrol, this has helped her in the past Body mass index 30+ - obesity 688396655 Z68.39 The patient's current weight is 209# with a height of 5' 1.25 and a correspond ing BMI (Body Mass Index) of 39.2. The medical definition of Obesity is a BMI greater than 30. Your [place] Body Weight is approximat malinda about 116#. [...] migraine prophylaxi s and weight loss. Migraine 48944130 G43.90 9 see the above plan [id number] Timbo Mckeon DO [facility] [address] [facility],[address] [place] [address] 12/18/2018 09:57:19 12/18/2018 11:37:10 Adult health examination 408680061 Z00.00 Female Complete Physical Exam: I discussed [...] exercise, diet. Achieve/ma intain ideal body weight. [place] body weight is about 116 pounds,Adv anced directives : I gave the patient the form for LIVING WILL and health power of alarm security or surveillance monitor from the [place] [employer], the patient does want to be resuscitat ed but the patient does not want to be maintained on chronic life support if there is little hope of meaningful recovery. Active or passive immunization [id number] Z23 Flu vaccine today, She is up to date with the Tdap Body mass index 30+ - obesity 194038367 Z68.38 The patient's current weight is 206.75# with a height of 5' 1.25 and a correspond ing BMI (Body Mass Index) of 38.7. The medical definition of Obesity is a BMI greater than 30. Your [place] Body Weight is approximat malinda about 116#. A reduced calorie, reduced carbohydra te weight reduction diet as well as increased activity.. She has lost about 3# since the last visit Hyperhidro sis of axilla 009715349 L74.510 Drysol Jessie.ly to axilla once daily at first and then about three times per week, do not apply to fresh shaven skin. Elevated blood-pressure reading without diagnosis of hypertension 793070060 R03.0 I encouraged the patient to check the blood pressure and log the results. Please follow a reduced sodium diet and maintain/a chieve ideal body weight. [id number] Malka VANEGAS, Cali Carter [facility] - MULTIMEDIA AUTHOR [facility] POS [address] [place] [address] 07/30/2019 10:48:16 07/30/2019 12:44:41 test positive 051747554 Z32.01 Mild hyper emesis gravidarum 18864513 O21.0 Reviewed and hyperemesi s with patient. Reviewed diet at length. Questions answered. Recommend consider hold PNV. Start vitamin B6, unisom. Ob dating u/s in 1 week. f/u 1wk. Amenorrhea 83209024 N91. 2 Reviewed findings, positive test. [id number] Malka VANEGAS, Cali Carter [facility] - MULTIMEDIA AUTHOR [facility] POS [address] [place] [address] 08/04/2019 11:31:16 08/04/2019 13:34:46 Disorder of menstruation 435032224 N92.6 Ob u/s reviewed, show viable iup consistent with LMP dating. Reviewed with patient. Routine an tenatal care 738885507 Z34.81 Z3A.08 Venereal d isease screening 244320486 Z11.3 Advanced m aternal age 390300765 O09.899 [id number] Malka VANEGAS, [facility] - MULTIMEDIA AUTHOR [facility] POS [address] [place] [address]15[address] 7 08/18/2019 11:25:44 08/18/2019 13:21:34 Advanced maternal age 055961365 O09.899 Routine an tenatal care 377242476 Z34.81 Z3A.08 Mild hyper emesis gravidarum 31489921 O21.0 mostly resolved [id number] Malka VANEGAS, [facility] [address] [place] [address] 7 09/22/2019 13:57:14 09/22/2019 14:40:34 Multigravida of advanced maternal age 735866541 O09.522 Z3A.15 [id number] Malka VANEGAS, [facility] [address] [place] [address] 7 10/20/2019 13:50:29 10/20/2019 15:17:10 Multigravida of advanced maternal age 186864782 O09.523 Z3A.19 [id number] Primitivo VANEGAS, Dickson [facility] ETAL[facility] POS [address] [place] [address] 5 10/27/2019 10:57:43 10/27/2019 14:41:15 Advanced maternal age 754434380 O09.899 expo sure to alcohol 093199030 O35.4XX9 expo sure to drug 917847664 O35.5XX9 Tolterodin e exposure [id number] Malka VANEGAS, [facility] [address] [place] [address] 7 11/24/2019 14:02:44 11/24/2019 15:47:27 Advanced maternal age 844818542 O09.899 Z3A.24 [id number] Malka VANEGAS, [facility] - MULTIMEDIA AUTHOR [facility] POS [address] [place] [address]66[address] 7 12/08/2019 13:27:12 12/08/2019 15:22:20 Gestational diabetes mellitus 32953309 O24.410 [id number] [facility] IN[facility] POS [address] [place] [address] 12/17/2019 17:23:54 12/17/2019 17:24:51 [id number] Dickson Langford MD [facility] POS [address] [place] [address] 12/22/2019 08:47:44 12/22/2019 11:38:14 Glucose tolerance test outside reference range 339265427 R73.09 Gestationa l diabetes mellitus 53506694 O24.410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 symptoms reviewed. f/u 5wk. Flowsheet Date 09/22/2019 Jackson Score Blood Edema Fundus Height Fundus Units Glucose Ketones Leukocytes Nitrite Labor Signs Protein Cervic Dilation Cervic Effacement Cervic Station trace none neg Type Weight in lbs Pre/Post Dialysis Refused With clothes 205.840647059218 BP Diastolic BP Location Tested BP Systolic BP Type 80 L arm 132 sitting Fetus Heart Rate Present A 150 Fetus Movement Comments ob/fu - nausea has decreased . c/o pelvic pain when standing or shifting side to side in bed. Reviewed [place] neg. No other c/o. PTL signs and symptoms reviewed. Sched [facility] u/s. f/u 4wk. Flowsheet Date 10/20/2019 Jackson Score Blood Edema Fundus Height Fundus Units Glucose Ketones Leukocytes Nitrite Labor Signs Protein Cervic Dilation Cervic Effacement Cervic Station 20 none neg Type Weight in lbs Pre/Post Dialysis Refused With clothes 208.40172386156 BP Diastolic BP Location Tested BP Systolic BP Type 78 R arm 120 sitting Fetus Heart Rate Present A 150 Fetus Movement A Yes Comments ob/fu - MFM scheduled on 10/26. c/o continues to have nausea, frequent crackling in her right ear, nasal congestion, mild nose bleeds. No other c/o. Exam neg, TM neg. recommend saline mist. [facility] u/s sched 10/26. PTL signs and symptoms [...] in lbs Pre/Post Dialysis Refused With clothes 206.347149453717 BP Diastolic BP Location Tested BP Systolic BP Type 72 L arm 124 sitting Fetus Heart Rate Present A 150 Fetus Movement A Yes Comments Glucose and cbc labs today. Ingrown hair has been having some discomfort. Exam neg. 1hr gluc today. Reviewed [facility] u/s. PTL signs and symptoms reviewed. f/u 2wk. Flowsheet Date 12/08/2019 Jackson Score Blood Edema Fundus Height Fundus Units Glucose Ketones Leukocytes Nitrite Labor Signs Protein Cervic Dilation Cervic Effacement Cervic Station none neg Type Weight in lbs Pre/Post Dialysis Refused With clothes 208.273570934752 BP Diastolic BP Location Tested BP Systolic BP Type 70 L arm 118 sitting Fetus Heart Rate Present A 150 Fetus Movement A Yes Comments ob fu. No complains. Reviewe d 3hr gtt pos. refer to [facility], dietitian. Send glucometer, chem strips, lancets. PTL [...] in lbs Pre/Post Dialysis Refused With clothes 207.961342558761 BP Diastolic BP Location Tested BP Systolic BP Type 72 L arm 124 sitting Fetus Heart Rate Present A 145 Fetus Movement A Yes Comments Pt c/o pain on hips when sle eping. Occ tightening muscle on ankle and foot. Denies other c/o. MFM u/s reviewed. BS fasting intermitt elevated, adjusting diet per major account manager. PTL signs and symptoms reviewed. f/u 2wk. Flowsheet Date 01/05/2020 Jackson Score Blood Edema Fundus Height Fundus Units Glucose Ketones Leukocytes Nitrite Labor Signs Protein Cervic Dilation Cervic Effacement Cervic Station 32 none neg Type Weight in lbs Pre/Post Dialysis Refused With clothes 205.477698065891 BP Diastolic BP Location Tested BP Systolic [...] in lbs Pre/Post Dialysis Refused With clothes 205.721481332016 BP Diastolic BP Location Tested BP Systolic [...] in lbs Pre/Post Dialysis Refused With clothes 205.138419161963 BP Diastolic BP Location Tested BP Systolic [...] in lbs Pre/Post Dialysis Refused With clothes 204.428667364731 BP Diastolic BP Location Tested BP Systolic [...] in lbs Pre/Post Dialysis Refused With clothes 205.009880141836 BP Diastolic BP Location Tested BP Systolic [...] in lbs Pre/Post Dialysis Refused With clothes 205.357123614266 BP Diastolic BP Location Tested BP Systolic [...] in lbs Pre/Post Dialysis Refused With clothes 201.342983233123 BP Diastolic BP Location Tested BP Systolic BP Type 80 L arm 120 sitting Fetus Heart Rate Present A 145 Fetus Movement A Yes Comments ob/fu - Pt was at [facility] L[facility] on Saturday due to having [...] in lbs Pre/Post Dialysis Refused With clothes 192.811073323597 BP Diastolic BP Location Tested BP Systolic [...] 09/22/2019 Toxoplasmosis precautions (cats/raw meat) [email or web address] 09/22/2019 Adventism [email or web address] 09/22/2019 Hospital choice [email or web address] 09/22/2019 Blood [...]
--- OUTSIDE RECORDS SUMMARY | 2024-08-04 15:30 | XMS_ITS | Continuity of Care Document ---
Author Name [facility] Organization [facility] Care Team Providers Care Judicial Reporter Name Role Phone [facility] Unavailable Unavailable Allergies, Adverse Reactions, Alerts Combined list of allergies from [facility] facilities. It does not include entries that were removed or entered in error. 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 ADHESIVES Propensity to adverse reaction (finding) active 0 ADE [facility] Adhesives Allergy to substance Active One or Mor e [facility] [employer] Latex Drug allergy Active One or Mor e [facility] IN[employer]SEMBLIES LATEX GLOVE Propensity to adverse reactions to drug (finding) active 0 [facility] VICODIN Propensity to adverse reactions to drug (finding) active 0 [facility] Vital Signs Combined list of inpatient and outpatient Vital Signs from Department of [facility] and [facility], ranging from 12 months to all on record, depending upon the facility. Vital Sign Value Date Comments Source Systolic Blood Pressure 132 mm[Hg] 02/04/20 20 20:15:44 One or More [facility] [employer] Diastolic Blood Pressure 78 mm[Hg] 02/04/2020 20:15:44 One or More [facility] Fac[facility] [employer] Procedures Combined list of: 1) Procedures from [facility] facilities going back up to thelast 18 months, not all [place] non-surgical procedures are included; 2) All procedures from the Department of [facility] facilities. Procedure Procedure Type Code Date Perfomer Comments Sourc e No data available for this section Ambulatory P harmacy Social History Combined list of available smoking, tobacco, and other social history from Department of [facility] and [facility] facilities. Social History Type Response Date Comment Sourc e Sex Representation Female (finding) 05/13/2023 Unknown Organization Sexual Orientation Ambula tory Pharmacy Gender identity Ambulator y Pharmacy Assessment and Plan Combined list of future care activities from Department of [facility] and [facility] facilities (e.g., assessment and plan notes, appointments, orders, and referrals). Additional future care activities may be listed in the Plan of Care section. Result Assessment and Plan Date Source Assessment and Plan No data available for this section 08/04/2024 Ambulatory Pharmacy Functional Status Combined list of recent functional and cognitive assessments recorded at [facility] (VA).VA Functional [place] Measurement (FIM) Scale: 1 = Total Assistance (Subject = 0% +), 2 = Maximal Assistance (Subject = 25% +), 3 = Moderate Assistance (Subject = 50% +), 4 = Minimal Assistance (Subject = 75% +), 5 = Supervision, 6 = Modified [place] (Device), 7 = Complete [place] (Timely, Safely). Assessment Date/Time Source Assessment Type Assessment Skill Assessment Score Assessment Details No data available for this section
== END 2024-08-04 13:38 | disposition home or self-care (01) ==
LOC: HO.HWS 12:44
PROVIDERS: PCP Internal Medicine; Visit Provider Obstetrics & Gynecology
DX: N93.9 Abnormal uterine and vaginal bleeding, unspecified (principal); T83.32XA Displacement of intrauterine contraceptive device, initial encounter; Z30.433 Encounter for removal and reinsertion of intrauterine contraceptive device; Z32.02 Encounter for pregnancy test, result negative
CPT/HCPCS: 58100; 58300; 58301

== ENCOUNTER 2024-08-04 12:44 | Outpatient (REF) | payer OTHER, SELFPAY ==
--- OUTSIDE RECORDS SUMMARY | 2024-08-04 16:57 | XMS_ITS | Continuity of Care Document ---
Author Name [facility] Organization [facility] Care Team Providers Care Eyeglass Lens Grinder Name Role Phone [facility] Unavailable Unavailable Allergies, Adverse Reactions, Alerts Combined list of allergies from [facility] facilities. It does not include entries that were removed or entered in error. Substance Category Reaction Severity Reaction type Status Date Reported Comments Source acetaminoph en-hydrocod one Drug allergy Active One or Mor e [facility] Facilities HIDE WORKER ADHESIVES Propensity to adverse reaction (finding) active 0 ADE [facility] Adhesives Allergy to substance Active One or Mor e [facility] Facilities HIDE WORKER Latex Drug allergy Active One or Mor e [facility] Facilities HIDE WORKER LATEX GLOVE Propensity to adverse reactions to drug (finding) active 0 [facility]DE [facility] VICODIN Propensity to adverse reactions to drug (finding) active 0 [facility]DE [facility] Vital Signs Combined list of inpatient and outpatient Vital Signs from Department of [facility] and [facility], ranging from 12 months to all on record, depending upon the facility. Vital Sign Value Date Comments Source Systolic Blood Pressure 132 mm[Hg] 02/04/20 20 20:15:44 One or More [facility] Facilities HIDE WORKER Diastolic Blood Pressure 78 mm[Hg] 02/04/2020 20:15:44 One or More [facility] Facilities HIDE WORKER Procedures Combined list of: 1) Procedures from [facility] facilities going back up to thelast 18 months, not all [place] non-surgical procedures are included; 2) All procedures from the Department of [facility] facilities. Procedure Procedure Type Code Date Perfomer Comments Sourc e No data available for this section Ambulatory P harmacy Social History Combined list of available smoking, tobacco, and other social history from Department of [facility] and [facility] facilities. Social History Type Response Date Comment Sourc e Sex Representation Female (finding) 05/13/2023 Unknown Organization Sexual Orientation Ambula tory Pharmacy Gender identity Ambulator y Pharmacy Assessment and Plan Combined list of future care activities from Department of [facility] and [facility] facilities (e.g., assessment and plan notes, appointments, orders, and referrals). Additional future care activities may be listed in the Plan of Care section. Result Assessment and Plan Date Source Assessment and Plan No data available for this section 08/04/2024 Ambulatory Pharmacy Functional Status Combined list of recent functional and cognitive assessments recorded at [facility] Defense and [facility] (VA).VA Functional [place] Measurement (FIM) Scale: 1 = Total Assistance (Subject = 0% +), 2 = Maximal Assistance (Subject = 25% +), 3 = Moderate Assistance (Subject = 50% +), 4 = Minimal Assistance (Subject = 75% +), 5 = Supervision, 6 = Modified [place] (Device), 7 = Complete [place] (Timely, Safely). Assessment Date/Time Source Assessment Type Assessment Skill Assessment Score Assessment Details No data available for this section
== END 2024-08-04 12:45 | disposition home or self-care (01) ==
LOC: HO.LNP 12:44
PROVIDERS: PCP Internal Medicine; Visit Provider Obstetrics & Gynecology
DX: Z30.433 Encounter for removal and reinsertion of intrauterine contraceptive device (principal); N93.9 Abnormal uterine and vaginal bleeding, unspecified; T83.32XA Displacement of intrauterine contraceptive device, initial encounter
CPT/HCPCS: 58100; 58300; 58301; 81025; 88305; J7298

== ENCOUNTER 2024-08-13 12:43 | Outpatient (AMB) | payer OTHER, SELFPAY ==
--- NOTE | 2024-08-13 14:22 | AM.OFFWIN_ITS ---
Intake Vital Signs 08/13/24 14:25 Weight 251 lb BP 130/90 H Blood Pressure Location Lt brachial Position Sitting Pulse 98 Pulse Source Pulse Oximeter Temp 98.6 F Temp Source Oral Pulse Oximetry (%) 98 Oxygen Delivery Method Room Air Intake Visit Reasons: EP ?UTI Intake Note: Patient here for pain/pressure towards end of stream that started on Saturday. She states she recently had an IUD placed last week. Patient Tobacco Use Status: Never used Tobacco Allergies latex Adverse Reaction (Mild, Verified 08/13/24 14:23) hives Do you need a note to return to daycare/school/sports/work: No HPI HPI Comments History of Present Illness Details History of Present Illness - The patient is a 43-year-old female pr esenting with a possible Urinary Tract Infection - She had a recent IUD replacement on Ap following previous IUD displacement occurrences. - Post-procedure, she experienced lower back pain, cramping, and bloody discharge but no fever or foul-smelling discharge. - some pain with urination and increased frequency raise suspicion of infection, although no burning on urination is present. - She experiences pain towards the end o f urination, with incomplete bladder emptying and subsequent burning. - No previous kidney stone history is re ported. Physical Exam General: Cooperative, healthy appearing, comfortable, no acute distress and well developed Orientation: Patient oriented x3 Limitations: No limitations Head: Normal to inspection Ears: Hearing grossly normal bilaterally Nose: Normal External nose present Face and sinus: Normal facial exam Eyes: Appearance normal, both eyes and all related structures Neck: Normal visual inspection and Yes full ROM Respiratory: Normal respiratory effort and able to speak in complete sentences. Skin: No rashes or lesions noted Neuro: Patient oriented x3 Extremities: Normal to inspection [facility] Medical History Nausea and vomiting in adult Acute respiratory disease Major depressive disorder, recurrent, severe with psychotic features Decreased hearing Tinnitus Reduced visual acuity Pyelonephritis (03/22/15) (08/04/19) Obesity (12/12/18) Migraine Menorrhagia Irritable bowel syndrome Insomnia Hiatal hernia Hemorrhoids Gastroesophageal reflux disease Fracture of hand (04/22/09) Female stress incontinence Blood in urine Severe carpal tunnel syndrome of right wrist Medical clearance for psychiatric admission Hypertriglyceridemia Positive Tinel's sign Positive Phalen maneuver Cervicalgia HTN (hypertension) Decreased hearing of both ears Environmental and seasonal allergies Tinnitus of both ears Knee pain Excessive daytime sleepiness Loud snoring Vitamin D deficiency Impaired fasting glucose Mixed dyslipidemia Morbid obesity Hiatal hernia with gastroesophageal reflux Family history of premature CAD Annual visit for general adult medical examination with abnormal findings Surgical History H/O endoscopy H/O wisdom tooth extraction Family History Father Substance use disorder Mental health disorder Alcoholism Myocardial infarction acute, Onset Age: 56 Depression Maternal Uncle Testicular cancer Social History Household Members: Family Household Members Other:: and 2 children Housing: House Do you presently have visiting nurse or other home services: No Alcohol intake: current Alcohol intake frequency: holidays/special occasions only Patient Tobacco Use Status: Never used Tobacco e-Cigarette/Vaping Use: Never Used Substance Use Type: Marijuana service: No Current occupational status: unemployed and other 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 Sexual orientation: Straight/Heterosexual Gender identity: Female Cognitive needs: No Hearing needs: No Vision needs: Yes Review of Systems Const All systems reviewed & are unremarkable except as noted in HPI and below Physical Exam Vital Signs: Last Vital Signs Temp 98.6 F 08/13/24 14:25 Pulse 98 08/13/24 14:25 BP 130/90 H 08/13/24 14:25 Pulse Ox 98 08/13/24 14:25 Oxygen Delivery Method Room Air 08/13/24 14:25 Assessment & Plan Assessment & Plan (1) UTI (urinary tract infection): Code(s): N39.0 - Urinary tract infection, site not specified Qualifiers: Urinary tract infection type: acute cystitis Hematuria presence: with hematuria Qualified Code(s): N30.01 - Acute cystitis with hematuria Plan: VSS, pt well appearing, UA 1+ 70 leuks, neg nitrites and 3+ blood. No indication to send culture. The patient will initiate a prescribed antibiotic regimen to manage the possible urinary tract infection, as evidenced by urinalysis results. Pyridium is provided for symptomatic relief of discomfort during urination. Increased fluid intake is recommended to aid in infection clearance. In case of persistent or worsening symptoms, including back pain or fever, the patient should seek immediate evaluation in the ED due to the potential for urinary calculi. Patient was informed and verbally consented to the use of an ambient scribe for clinic note documentation during this visit. Medications: New phenazopyridine 200 mg (2 x 100 mg) PO Q8H PRN 6 tabs 0RF Pain cefuroxime axetil 500 mg PO Q12H 10 tabs 0RF Coding Level of Care Code Est Pt Level 3 (28377) Diagnoses Acute cystitis with hematuria N30.01 Urinary tract infection type: acute cystitis Hematuria presence: with hematuria
[2024-08-13 14:25] VITALS: BP 130/90; PULSE 98; TEMP 37; O2SAT 98
--- OUTSIDE RECORDS SUMMARY | 2024-08-13 14:56 | XMS_ITS | Continuity of Care Document ---
Author Name [facility] Organization [facility] Care Team Providers Care Wet Cleaner Machine Name Role Phone [facility] Unavailable Unavailable Medications Combined list of outpatient [...] CITRON PHARMA L, 500 ea. BOTTLE Active [id number] 4 2023 10 Pharmac y Data Transac tion Service Facilit y Benzonatate ([employer]) 100 CAPSULE in 1 BOTTLE Active [id number] 06/26/19 2 4 2023 60 Pharmac y Data Transac tion Service Facilit y DIAZEPAM (DIAZEPAM), 5MG, TABLET, ORAL, IVAX PHARMACEUT, 100 ea. BOTTLE Active [id number] 4 2023 10 Pharmac y Data Transac tion Service Facilit y DULOXETINE HCL (DULOXETINE HCL), 60 MG, CAPSULE DR, ORAL, BRECKENRIDG E, 90 ea. BOTTLE Active [id number] 4 2023 90 Pharmac y Data Transac tion Service Facilit y DULOXETINE HCL (DULOXETINE HCL), 60 MG, CAPSULE DR, ORAL, BRECKENRIDG E, 90 ea. BOTTLE Active [id number] 4 2023 90 Pharmac y Data Transac tion Service Facilit y LIDOCAINE (lidocaine) , 5 %, ADH. PATCH, TOPICAL, AMNEAL PHARMACE, 30 ea. BOX Active [id number] 4 2023 30 Pharmac y Data Transac tion Service Facilit y LISINOPRIL (lisinopril ), 10 MG, TABLET, ORAL, LUPIN PHARMACEU, 1000 ea. BOTTLE Active [id number] 03/20/ 2024 30 Pharmac y Data Transac tion Service Facilit y LISINOPRIL (lisinopril ), 10 MG, TABLET, ORAL, LUPIN PHARMACEU, 1000 ea. BOTTLE Active [id number] 4 2023 30 Pharmac y Data Transac tion Service Facilit y LISINOPRIL- HCTZ (LISINOPRIL /HYDROCHLOR OTHIAZIDE), 10-12.5MG, TABLET, ORAL, LUPIN PHARMACEU, 100 ea. BOTTLE Active [id number] 4 2023 30 Pharmac y Data Transac tion Service Facilit y LISINOPRIL- HCTZ (LISINOPRIL /HYDROCHLOR OTHIAZIDE), 10-12.5MG, TABLET, ORAL, LUPIN PHARMACEU, 100 ea. BOTTLE Active [id number] 4 2023 30 Pharmac y Data Transac tion Service Facilit y SULFAMETHOX AZOLE-TRIME THOPRIM (sulfametho xazole/trim ethoprim), 800-160 MG, TABLET, ORAL, RISING PHARM, 100 ea. BOTTLE Active [id number] 4 2023 14 Pharmac y Data Transac tion Service Facilit y Allergies, Adverse Reactions, Alerts Combined list of allergies from Department of Defense and Veterans Affairs facilities. It does not include entries that were removed or entered in error. Substance Category Reaction Severity Reaction type Status Date Reported Comments Source acetaminophe n-hydrocodon e Drug allergy Active One or More [facility] Fac[facility] ASSOCIATE ATTORNEY ADHESIVES Propensity to adverse reaction (finding) active 0 [facility] Adhesives Allergy to substance Active One or More [facility] ASSOCIATE ATTORNEY HYDROCODONE Drug allergy (disorder) active 0 [facility] Latex Drug allergy Active One or More [facility] ASSOCIATE ATTORNEY LATEX GLOVE Propensity to adverse reactions to drug (finding) active 0 [facility] VICODIN Propensity to adverse reactions to drug (finding) active 0 [facility] Immunizations Combined list of available immunizations from the Department of Defense and Veterans Affairs facilities. Immunization Series Date Given Administered By Site Reaction Lot Number CVX Code Drug Spring Repairer Helper Hand Status Comments Source COVID-19, mRNA, LNP-S, PF, 30 mcg/0.3 mL dose 2020 [place], Pfizer MyDoc [place] (PFR) Not Given COVID-19, mRNA, LNP-S, PF, 30 mcg/0.3 mL dose [facility] COVID-19, mRNA, LNP-S, PF, 30 mcg/0.3 mL dose 2020 [place], Pfizer MyDoc [place] (PFR) Not Given COVID-19, mRNA, LNP-S, PF, 30 mcg/0.3 mL dose [facility] COVID-19, mRNA, LNP-S, PF, 30 mcg/0.3 mL dose 2020 [place], Pfizer MyDoc [place] (PFR) Not Given COVID-19, mRNA, LNP-S, PF, 30 mcg/0.3 mL dose [facility] Vital Signs Combined list of inpatient and outpatient Vital Signs from Department of Defense and Veterans Affairs, ranging from 12 months to all on record, depending upon the facility. Vital Sign Value Date Comments Source Systolic Blood Pressure 132 mm[Hg] 02/04/20 20:15:44 One or More [facility] Fac[facility] ASSOCIATE ATTORNEY Diastolic Blood Pressure 78 mm[Hg] 02/04/2020 20:15:44 One or More [facility] ASSOCIATE ATTORNEY Procedures Combined list of: 1) Procedures from Department of Veterans Affairs facilities going back up to thelast 18 months, not all [place] non-surgical procedures are included; 2) All procedures from the Department of [facility] facilities. Procedure Procedure Type Code Date Perfomer [...] y Pharmacy This section is an empty social history section. [facility]D Assessment and Plan Combined list of future care activities from Department of Defense and Veterans Affairs facilities (e.g., assessment and plan notes, appointments, orders, and referrals). Additional future care activities may be listed in the Plan of Care section. Result Assessment and Plan Date Source Assessment and Plan No data available for this section 08/13/2024 Ambulatory Pharmacy Functional Status Combined list of recent functional and cognitive assessments recorded at [facility] Functional [place] Measurement (FIM) Scale: 1 = Total Assistance (Subject = 0% +), 2 = Maximal Assistance (Subject = 25% +), 3 = Moderate Assistance (Subject = 50% +), 4 = Minimal Assistance (Subject = 75% +), 5 = Supervision, 6 = Modified [place] (Device), 7 = Complete [place] (Timely, Safely). Assessment Date/Time Source Assessment Type Assessment Skill Assessment Score Assessment Details No data available for this section
--- OUTSIDE RECORDS SUMMARY | 2024-08-13 14:57 | XMS_ITS | Data Portability ---
Author Organization [place] - [facility], [place] - [facility] - Address [address] [place] [address] Care Team Providers Care Program Director Name Role Phone ROBIN PENALOZANN Primary Care [...] 6-8 weeks. This visit was conducted via [employer] website bookletmobile using both audio and video during the 2019 COVID-19 pandemic. Patient consented to non face to face service. Patient location: car Provider location: [facility] Start time: 1417 End time: 142 Participants [...] This visit was conducted via telehealth website bookletmobile using both audio and video during the 2020. Patient consented to non face to face service. Patient location: home Provider location: [facility] Start time: 1424 End time: [...] This visit was conducted via telehealth website bookletmobile using both audio and video during the 2019. Patient consented to non face to face service. Patient location: home Provider location: [facility] Start time: 1352 End time: [...] mg capsule,del ayed release 2021 022 [facility], [address], [place], [address], 15:13:01 duloxetine 60 mg capsule,del ayed release 04/06/ 2022 04/06/2 022 [facility], [address], [place], [address], 2 15:12:56 hydroxyzine HCl 50 mg tablet 2021 022 [facility], [address], [place], [address], 2 15:12:57 hydroxyzine HCl 50 mg tablet 2020 021 [facility], [address], [place], [address], 15:27:21 duloxetine 30 mg capsule,del ayed release 2020 021 [facility], [address], [place], [address], 15:27:17 duloxetine 60 mg capsule,del ayed release 2020 021 [facility], [address], [place], [address], 15:27:17 Patient TargetsNo targets recorded. Patient InstructionsNo instructions recorded. Reason for Referral None Reported. Problems Name Problem SNOMED Code Status Onset Date Resolution Date Notes Provider Name and Address Organization Details Recorded Time Multiple environm ental allergie s Active scotty sepulveda [facility] 6 12:23:04 Irritabl e bowel syndrome 30020142 Active celiac disease Ab testing Neg 11/03; improved w/ Gluten free diet scotty sepulveda [facility] 6 12:23:04 Gastroes ophageal reflux disease 772997593 Active scotty sepulveda [facility] 6 12:23:04 Mixed anxiety and depressi ve disorder 292618212 Active hx of post depressi on and took lexapro but felt poor response , wellbutr in was very neg side effects (bad vivid dreams of her hurting her family); zoloft was very good response but had to stop when breast feeding bad w/d (didn't wean) scotty sepulveda [facility] 6 12:23:03 Migraine 10165968 [facility] 12:[facility]03 Hiatal hernia 65345324 [facility] 12:23:04 Hemorrho ids 44668278 Completed 12/11/2018 tx'd w/ anusol-H C Timbo Mckeon DO [address], [place], [address] , [facility] 9 17:20:55 Female stress incontin ence 38986903 Active [facility] 7 18:34:40 Pyelonep hritis 46138810 Completed 201412/11/2018 tx'd w/ Levaquin Timbo Mckeon DO [address], [place], [address] , [place] [facility] 9 17:19:51 Insomnia 476071613 [facility] 6 12:23:03 Fracture of hand 65573856 Completed 200912/11/2018 Left Timbo Mckeon DO [address], [place], [address] , [place] [facility] 9 17:20:04 Tinnitus 51712942 [facility] 6 12:23:04 Decrease d hearing 972587043 Completed 12/11/2018 Timbo Mckeon DO [address], [place], [address] , [place] [facility] 9 17:19:28 Reduced visual acuity 52421455 Active scotty banda null, [place] - [facility] 6 12:23:04 Sensorin eural hearing loss of bilatera l ears 707917461 Active Asha Bradford [address], [place], [address] , [place] MD - [facility] 6 13:11:25 Menorrha obi 210201124 Active Margy Becker MD [address], [place], [address] , [place] MD - [facility] 7 22:56:04 Blood in urine 96690191 Completed 12/11/2018 Timbo Mckeon DO [address], [employer] [place], [address] , [place] [facility] 9 17:19:34 Obesity 813841299 Active 2018 Timbo Mckeon DO [address], [employer] [place], [address] , [place] [facility] 9 01:18:28 Pregnanc y 60656897 Completed 201903/16/2020 Aliyahjanet Whitehead null, MD - [facility] 0 12:25:25 Gestatio nal diabetes mellitus class A2 70983623 Active 2019 Aliyahjanet Whitehead null, MD - [facility] 0 12:25:22 Gestatio nal diabetes mellitus class A2 11806119 Completed 2019 Aliyahjanet Whitehead null, MD - [facility] 0 12:25:22 Depressi ve disorder 78924827 Active 2020 Yaya Casanova DO [address], [place], [address] , [place] [facility] 1 15:54:10 Notes:hx plantar fasciitis; [...] Non-Stress Test completed Malka VANEGAS, [address], [place], [address], [facility] 02/25/2020 13:33:54 02/18/20 20 Non-Stress Test completed Cali Ace [address], [place], [address], [facility] 02/18/2020 15:49:47 02/11/20 20 Non-Stress Test completed Cali Ace MD [address], [place], [address], [facility] 02/11/2020 15:03:18 01/12/20 20 Non-Stress Test completed Cali Ace MD [address], [place], [address], [place] [facility] 01/12/2020 18:21:04 12/19/19 19 Date of Last Pap Smear completed Timbo Mckeon DO [address], [place], [address], [facility] 12/24/2018 14:45:47 06/30/19 17 Ortho Corticosteroid Injection completed Vy Feliciano [facility] 06/29/2016 12:26:26 06/29/19 17 Cystoscopy (female) completed Chuck VANEGAS, [address], [place], [address], [facility] 06/28/2016 12:41:47 06/14/19 17 Bladder Scan completed Chuck VANEGAS, [address], [place], [address], [facility] 06/14/2016 13:22:58 04/05/20 16 Tympanometry completed Asha Bradford [address], [place], [address], [facility] 04/05/2016 13:11:04 04/05/20 16 Audiogram.old completed Asha Bradford [address], [place], [address], [facility] 04/05/2016 13:11:04 11/21/19 15 Other completed Georgi Moctezuma MD [address], [place], [address], [facility] 01/13/2016 00:18:30 10/21/19 15 Other completed Georgi Moctezuma MD [address], [place], [address], [facility] 01/13/2016 00:18:30 04/22/19 00 Sycamore Teeth Removed completed Georgi Moctezuma MD [address], [place], [address], [facility] 01/12/2016 22:50:32 Oral surgery procedure completed Dena Argueta [facility] 04/06/2016 12:36:17 Imaging Results None recorded. Procedure Notes None recorded. Medical Equipment None Reported. Allergies Allergen ID Allergen Name Allergen Category Reaction Reaction Severity Criticality Documentation Date Start Date Code Code System Note Provider Name and Address Organization Details Recorded Time 083686 latex environme nt,medica tion hives moderate Not available 01/12/2016 57548 91 RxNorm Georgi Moctezuma MD [address], [place], [address], [facility] 6 22:23:54 498102 acetamino phen / hydrocodo ne medicatio n other moderate Not available 04/05/2016 47033 2 RxNorm facia l numbn ess scotty banda null, [facility] 6 12:23:03 092623 Wellbutri n medicatio n Not available Not available Not available 06/18/2016 86827 RxNorm vivid dream s/fri ghten ing ; used w/ post partu m alivia Moctezuma MD, Georgi Costa [address], [place], [address], [facility] 7 11:10:40 964086 adhesive tape environme nt,medica tion Not available Not available Not available 03/16/2020 39301 UNK Aliyah Julian null, [facility] 0 12:21:24 Medications Name Sig [...] e 137 mcg (0.1 %) nasal spray [place] 1 spray every day by intranas al [...] Not Available Not Available Not Available FreeStyle [place] Lite kit 03/16 completed Not Available Not [...] Smoking Status Never Smoker 12/11/18 Kathy Guallpa [facility], [place] - [facility] 12/11/2018 16:59:59 Do You Have An Advance Directive? 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 She [...] COVID-19 While That Case Was Ill? No [email or web address] Information not available 07/30/2019 In The 14 Days Before Symptom Onset, Have You Had Close Contact With A Person Who Is Under Investigation For COVID-19 While That Person Was Ill? No [email or web address] Information not available 07/30/2019 Have You Been To An Area Known To Be High Risk For COVID-19? No Information not available 07/30/2019 What Type Of Diet Are You Following? REGULAR Low Sodium Information not available 01/12/2016 Which Illicit Or Recreational Drugs Have You Used? None Information not available 12/11/2018 Do You Or Have You Ever Used E-cigarettes Or Vape? 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 No 12/11/18 Mh Information not available 04/06/2016 Have You Traveled Outside Of The [place] In The Last 21 Days (3 Weeks)? No Information not available 04/06/2016 Do You Have Any Baptism Beliefs That May Impact Your Health Care Decisions? No Does Not Follow Any Bahai Information not available 12/11/2018 Did You Hurt Yourself When You Fell In The Last Year? No 12/11/18 Mh Information not available 04/06/2016 Education: 12 Information not available 12/11/2018 Marital Status Informatio n not available 01/12/2016 What Was The Date Of Your Most Recent Tobacco Screening? 09/12/2020 [email or web address] Information not available 09/15/2020 Are You Sexually [...] Details LastModified Time Father Myocardial infarction 55 [email or web address] Not available 04/25 18:44:02 Father Hypertensive disorder [email or web address] Not available 2016 18:44:02 Father Hyperlipidem ia [email or web address] Not available 2016 18:44:02 Paternal Aunt Malignant tumor of cervix [email or web address] Not available 2016 18:44:02 Paternal Aunt Dementia [email or web address] Not a vailable 04/25/2016 18:44:02 Mother Pyelonephrit [...] Y Enlarged Prostate N Erectile Dysfunction N Elevated PSA N Depression Y Reconstructive surgeries N Urinary Problems Y Headaches/Migraines Y Prolapse N Head, Ears, Eyes, Nose, Throat Problems Y Diabetes N Urinary Tract Infections N Obesity Y Low Testosterone N Cancer [...] quadrivalent , PF 1 completed Maile sepulveda [facility] 03/15/2021 12:10:26 COVID-19, mRNA, LNP-S, PF, 30 mcg/0.3 mL dose 1 completed Savana sepulveda [facility] 08/30/2020 10:45:30 COVID-19, mRNA, LNP-S, PF, 30 mcg/0.3 mL dose 1 completed Savana sepulveda [facility] 08/30/2020 10:45:45 COVID-19, mRNA, LNP-S, PF, 30 mcg/0.3 mL dose 1 completed Maile sepulveda [facility] 03/15/2021 11:48:03 Influenza, split virus, trivalent, PF 8 cancelled patient objection Not Available [facility] 05/09/2019 02:33:30 Influenza, MDCK, quadrivalent , PF 8 completed Not Available [facility] 05/09/2019 03:23:32 Influenza, MDCK, quadrivalent , PF 9 completed Not Available [facility] 05/09/2019 03:01:50 Influenza, split virus, quadrivalent , PF 0 completed Savana sepulveda [facility] 01/05/2020 16:31:36 Tdap 3 completed Not Available [facility] 03/07/2020 09:20:47 Past Encounters Encounter ID Performer Location Encounter Start Date Encounter Closed Date Diagnosis/Indication Diagnosis SNOMED-CT Code Diagnosis ICD10 Code Diagnosis Note [id number] Anisha Mcclain [facility] [address] [place] [address] 01/12/2016 10:23:10 01/13/2016 12:09:34 Adult health examination 816108164 Z00.00 Hematology screening test 772181138 Z13.0 Hyperlipid emia screening 307956046 Z13.220 Endocrine/ metabolic screening 596530191 Z13.228 Mixed anxi ety and depressive disorder 285806870 F41.8 Tinnitus 44122872 H93.13 Decreased hearing 186206 001 H91.93 Reduced visual acuity 13 544805 H54.7 [facility] care 12149 5005 Z30.40 [id number] Lv lucas MD, Chandrakant Shipley [facility] [place] [address] [place] [address] 04/05/2016 11:57:03 04/05/2016 13:17:18 Tinnitus 57155687 H93.13 At this time the patient has bilateral tinnitus, most likely due to her bilateral hearing loss. Please see plan as described above. FG Allergic r hinitis caused by pollen 61748747 J30.1 At this time the patient has [...] Sensorineu ral hearing loss of bilateral ears 165298014 H90.3 At this time the patient comes [...] will follow up as needed. FG Dizziness 811612165 R42 At this time the patient also complains of an off balance feeling with walking up and down stairs, but does not have any other problems. We will see if this improves on nasal steroid spray. She had no further questions and will follow up as needed for now. FG [id number] Asha Bradford [facility] [place] [address] [place] [address],[address] [place] [address] 04/05/2016 13:09:55 04/05/2016 13:12:09 Sensorineural hearing loss of bilateral ears 597166184 H90.3 [id number] Eugenio VANEGAS, Margy Valdivia [facility] [place] [place] [address] [place] [address],[address] [facility] [place] [facility] [place] [address] 04/06/2016 12:09:16 04/06/2016 13:47:10 Gynecologic examination 73509496 Z01.419 Screening for malignant neoplasm of cervix 863192938 Z12.4 Menorrhagia 103355172 N9 2.0 History of urinary tract infection 4175030817 107 Z87.440 Surveillan ce of contraception 933362599 Z30.40 [id number] Eugenio VANEGAS, Margy Valdivia [facility] [place] [address] [place] [address],[address] [place] [address] 04/25/2016 17:48:13 04/25/2016 19:53:53 Menorrhagia 480196961 N92.0 Blood in urine 99096489 R31.9 [id number] Rhianna VANEGAS, Georgi Costa [facility] POS [address],[facility] [place] [address] 05/08/2016 10:01:31 05/08/2016 12:08:23 Migraine 43560100 G43.909 Mixed anxi ety and depressive disorder 411352589 F41.8 Carpal davonte simon syndrome 35014335 G56.00 Insomnia 533652397 G47.0 0 Hand pain 44340622 M79.6 42 Vitamin D deficiency 347 91359 E55.9 [id number] Chuck VANEGAS, [facility] - UROLOGY [facility] POS [address] [place] [address] 06/14/2016 12:22:40 06/14/2016 14:22:12 Microscopic hematuria 790143024 R31.21 she had 2-5 rbc on last ua done 04/26.17-has had full workup done in the past by another urologist and was negative but it was a while agozahida send urine for c/s and cytology-f ollow up for cystoscopy in office Renal colic 3975795 N23 she is having bilateral flank pain-previ ous urologist had checked a renal us but this may not seed cone 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-jc l do ct scan for stone search prior to cystoscopy [id number] Rhianna VANEGAS, Georgi Costa [facility] POS [address],[place] [address] 06/18/2016 10:33:06 06/18/2016 12:04:21 Mixed anxiety and depressive disorder 639717809 F41.8 [id number] Chuck VANEGAS, [facility] - UROLOGY [facility] POS [address] [place] [address] 06/28/2016 12:09:59 06/28/2016 12:45:15 Blood in urine 88669549 R31.9 her cystoscopy shows mild chronic bullous cystitis and a diverticul um, mild grade 1 trabeculat ions-will start on suppressiv e dose macrodanti n for one monthfollo w up in 3mos [id number] Donnell VANEGAS, Luis Soliz [facility] - ORTHOPEDI CSURGERY [facility] POS [address] [place] [address] 06/29/2016 11:24:40 07/13/2016 10:46:48 Hand pain 13461759 M79.643 Carpal davonte simon syndrome 06883510 G56.01 G56.02 [id number] Donnell VANEGAS, Luis Soliz [facility] [place] POS [address] [facility] [place] [address] 07/13/2016 11:07:42 07/13/2016 13:24:50 Pain in wrist 93420862 M25.531 Hand pain 84730085 M79.6 43 Carpal davonte simon syndrome 11831888 G56.01 G56.02 [id number] Rhianna VANEGAS, Georgi Costa [facility] [place] [facility] POS [address],[place] [address] 07/16/2016 10:58:41 07/16/2016 11:42:57 Mixed anxiety and depressive disorder 519637921 F41.8 [id number] Donnell VANEGAS, Luis Reynaoli [facility] - ORTHOP[facility]I CSURGERY [place] [address] [place] [address] 08/13/2016 11:24:07 08/13/2016 12:23:07 Hand pain 32393799 M79.641 Pain in wrist 19209946 M 25.531 Carpal davonte simon syndrome 22742893 G56.01 G56.02 [id number] Donnell VANEGAS, [facility] [place] [address] [place] [address] 09/20/2016 11:45:56 09/20/2016 14:44:21 Pain in wrist 25839434 M25.531 M25.532 Hand pain 16522066 M79.6 41 Carpal davonte simon syndrome 15715097 G56.01 G56.02 [id number] Chuck VANEGAS, [facility] - UROLOGY [facility] [place] POS [address] [facility] [place] [address] 10/04/2016 11:54:33 10/04/2016 12:31:12 Blood in urine 48024094 R31.9 she had history of microhemat uriawas given 3mos of suppressiv e dose abxhas not seen any blood in urinewill check ua/culture Bladder mu scle dysfunction - overactive 902581719 N32.81 she goes to bathroom every 2 hours during day and 2 times at night, occ urge incontinen cetrial of myrbetriq Female str ess incontinence 17444254 N39.3 -she does not require pads for the problemonl y occurs occasional ly with sneezingdi scussed treatment options- e will observe for now [id number] Donnell VANEGAS, Luis Soliz [facility] [address] [place] [address] 10/08/2016 09:47:26 10/08/2016 10:46:23 Pain in wrist 94018468 M25.531 M25.532 Hand pain 20635836 M79.6 41 Carpal davonte simon syndrome 93295807 G56.01 G56.02 [id number] Donnell VANEGAS, Luis Soliz [facility] - ORTHOPEDI CSURGERY [facility] [address] [facility] [facility] [place] [address] 11/09/2016 10:50:45 11/09/2016 12:33:48 Pain in wrist 71149677 M25.531 M25.532 Neck pain 81207911 M54.2 Hand pain 63012036 M79.6 41 Carpal davonte simon syndrome 59523331 G56.01 G56.02 [id number] Rhianna VANEGAS, Georgi [facility] [address],[place] [address] 11/21/2016 10:22:19 12/11/2016 16:16:59 Low back pain 253242657 M54.5 Snoring 61702770 R06.83 [id number] Rhianna VANEGAS, Georgi [facility] [address],[place] [address] 01/10/2017 16:20:44 01/10/2017 17:19:55 Pain in left knee 9100944862 45677 M25.562 Depressive disorder 3548 9007 F32.89 Fatigue 48485942 R53.83 [id number] Chuck VANEGAS, Vibha [facility] - UROLOGY [facility] [address] [place] [address] 01/31/2017 11:27:16 01/31/2017 12:47:19 Bladder muscle dysfunction - overactive 422436883 N32.81 she goes to bathroom every 2 hours during day and 2 times at night, occ urge incontinen cemyrbetri q didn't help and wasn't covered Female str ess incontinence 41966278 N39.3 she is more bothered by it latelywoul d like to try physical therapyref erral to ati womens health given [id number] Tete Brian DO [facility] Maddie [facility] AM#1 [address] [place] [address] 03/08/2017 11:55:53 03/13/2017 00:11:33 Fatigue 66720958 R53.83 --concerns for fatigue and insomnia. Have discussed sleep hygeine techniques with patient and reviewed the sleep study with her. Discussed weight loss and controllin g nasal congestion .--Pt will attempt these and follow up in the next 3 months. Allergic rhinitis 802004 04 J30.9 --nasal congestion Obesity 345525254 E66.9 --discusse d keeping track of her calories and aiming to eat about 500 calories less then what she normally eats.--Pt should f/u in 3 months on weight loss. [id number] Tete Brian DO [facility] AM#1 [address] [place] [address] 06/12/2017 10:00:03 06/12/2017 10:41:36 Active or passive immunization 350543416 Z23 Fatigue 14433774 R53.83 --cont use of breathe right strips and use nasal steroid. Allergic rhinitis 469010 04 J30.9 --nasal congestion continued. Increase cetirizine to 10 mg daily, but go back to 5 mg if she feels overly fatigued. Cont fluticason e and also start azelastine daily. Gastroesop hageal reflux disease 421619579 K21.9 [id number] Tete Brian DO [facility] AM#[address] [place] [address] 08/12/2017 10:54:36 08/12/2017 11:48:10 Obesity 606793623 E66.9 --discusse d weight loss and diet again Insomnia 216379993 G47.0 0 --pt instructed to take amitriptyl ine daily.--Co unselled on possible side effects. RTC if insomnia worsens Neck pain 31783402 M54.2 --negative adsons test, negative spurling sign. Muscle spasm in b/l neck.--Giv en exercises for neck. OTC tylenol and ibuprofen. RTC as needed. Migraine 03946159 G43.90 9 [id number] Tete Brian DO [facility] AM#1 POS [address] [place] [address] 02/11/2018 10:03:22 02/11/2018 10:50:04 Administration of influenza vaccine 17790808 Z23 Migraine 24725638 G43.90 9 --fioricet , amitriptyl ine and topiramate Insomnia 771530350 G47.0 0 --pt instructed to take amitriptyl ine daily.--Co unselled on possible side effects. RTC if insomnia worsens Environmental allergy 42 4650964 T78.49XA [id number] Shade VANEGAS, Nitin [facility] AM#[address] [place] [address] 04/02/2018 14:24:14 04/02/2018 15:10:58 Adult health examination 637398998 Z00.00 Migraine 95468935 G43.90 9 [id number] Timbo Mckeon DO [facility]#1 [address] [facility],[address] [place] [address] 12/11/2018 16:42:55 12/11/2018 17:56:44 Bladder muscle dysfunction - overactive 646020623 N32.81 she has urinary incontinen ce and requesting a refill of the detrol, this has helped her in the past Body mass index 30+ - obesity 711078916 Z68.39 The patient's current weight is 209# with a height of 5' 1.25 and a correspond ing BMI (Body Mass Index) of 39.2. The medical definition of Obesity is a BMI greater than 30. Your [place] Body Weight is approximat malinda about 116#. [...] migraine prophylaxi s and weight loss. Migraine 69645290 G43.90 9 see the above plan [id number] Timbo Mckeon DO [facility] - [facility]#1 POS [address] [facility],[address] [place] [address] 12/18/2018 09:57:19 12/18/2018 11:37:10 Adult health examination 948427823 Z00.00 Female Complete Physical Exam: I discussed [...] exercise, diet. Achieve/ma intain ideal body weight. [place] body weight is about 116 pounds,Adv anced directives : I gave the patient the form for LIVING WILL and health power of real estate associate attorney from the [place] [employer], the patient does want to be resuscitat ed but the patient does not want to be maintained on chronic life support if there is little hope of meaningful recovery. Active or passive immunization 915098613 Z23 Flu vaccine today, She is up to date with the Tdap Body mass index 30+ - obesity 987435978 Z68.38 The patient's current weight is 206.75# with a height of 5' 1.25 and a correspond ing BMI (Body Mass Index) of 38.7. The medical definition of Obesity is a BMI greater than 30. Your [place] Body Weight is approximat malinda about 116#. A reduced calorie, reduced carbohydra te weight reduction diet as well as increased activity.. She has lost about 3# since the last visit Hyperhidro sis of axilla 622529518 L74.510 Drysol Jessie.ly to axilla once daily at first and then about three times per week, do not apply to fresh shaven skin. Elevated blood-pressure reading without diagnosis of hypertension 052249440 R03.0 I encouraged the patient to check the blood pressure and log the results. Please follow a reduced sodium diet and maintain/a chieve ideal body weight. [id number] Malka VANEGAS, Cali Carter [facility] - [facility] [place] POS [address] [place] [address] 07/30/2019 10:48:16 07/30/2019 12:44:41 test positive 504533570 Z32.01 Mild hyper emesis gravidarum 88416483 O21.0 Reviewed and hyperemesi s with patient. Reviewed diet at length. Questions answered. Recommend consider hold PNV. Start vitamin B6, unisom. Ob dating u/s in 1 week. f/u 1wk. Amenorrhea 71931122 N91. 2 Reviewed findings, positive test. [id number] Malka VANEGAS, Cali Carter [facility] - [facility] POS [address] [place] [address] 08/04/2019 11:31:16 08/04/2019 13:34:46 Disorder of menstruation 789542138 N92.6 Ob u/s reviewed, show viable iup consistent with LMP dating. Reviewed with patient. Routine an tenatal care 530754737 Z34.81 Z3A.08 Venereal d isease screening 492660751 Z11.3 Advanced m aternal age 074786592 O09.899 [id number] Malka VANEGAS, [facility] - [facility] [place] POS [address] [place] [address] 7 08/18/2019 11:25:44 08/18/2019 13:21:34 Advanced maternal age 546873352 O09.899 Routine an tenatal care 266602483 Z34.81 Z3A.08 Mild hyper emesis gravidarum 07156304 O21.0 mostly resolved [id number] Malka VANEGAS, [facility] POS [address] [place] [address] 7 09/22/2019 13:57:14 09/22/2019 14:40:34 Multigravida of advanced maternal age 678096743 O09.522 Z3A.15 [id number] Malka VANEGAS, [facility] POS [address] [place] [address] 7 10/20/2019 13:50:29 10/20/2019 15:17:10 Multigravida of advanced maternal age 639263644 O09.523 Z3A.19 [id number] Primitivo VANEGAS, Dickson [facility] - [place] [facility] [place] POS [address] [place] [address] 10/27/2019 10:57:43 10/27/2019 14:41:15 Advanced maternal age 414095741 O09.899 expo sure to alcohol 191114957 O35.4XX9 expo sure to drug 659901533 O35.5XX9 Tolterodin e exposure [id number] Malka VANEGAS, [facility] POS [address] [place] [id number] 7 11/24/2019 14:02:44 11/24/2019 15:47:27 Advanced maternal age 153178463 O09.899 Z3A.24 [id number] Malka VANEGAS, [facility] - [facility] [place] POS [address] [place] [id number] 7 12/08/2019 13:27:12 12/08/2019 15:22:20 Gestational diabetes mellitus 19227567 O24.410 [id number] [facility] [place] [facility] POS [address] [place] [address] 12/17/2019 17:23:54 12/17/2019 17:24:51 [id number] Dickson Langford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 With clothes 205.251216604407 BP Diastolic BP Location Tested BP Systolic BP Type 80 L arm 132 sitting Fetus Heart Rate Present A 150 Fetus Movement Comments ob/fu - nausea has decreased . c/o pelvic pain when standing or shifting side to side in bed. Reviewed [place] neg. No other c/o. PTL signs and symptoms reviewed. Sched [facility] u/s. f/u 4wk. Flowsheet Date 10/20/2019 Jackson Score Blood Edema Fundus Height Fundus Units Glucose Ketones Leukocytes Nitrite Labor Signs Protein Cervic Dilation Cervic Effacement Cervic Station 20 none neg Type Weight in lbs Pre/Post Dialysis Refused With clothes 208.24569157573 BP Diastolic BP Location Tested BP Systolic BP Type 78 R arm 120 sitting Fetus Heart Rate Present A 150 Fetus Movement A Yes Comments ob/fu - MFM scheduled on 10/26. c/o continues to have nausea, frequent crackling in her right ear, nasal congestion, mild nose bleeds. No other c/o. Exam neg, TM neg. recommend saline mist. [facility] u/s sched 10/26. PTL signs and [...] in lbs Pre/Post Dialysis Refused With clothes 206.378367589924 BP Diastolic BP Location Tested BP Systolic BP Type 72 L arm 124 sitting Fetus Heart Rate Present A 150 Fetus Movement A Yes Comments Glucose and cbc labs today. Ingrown hair has been having some discomfort. Exam neg. 1hr gluc today. Reviewed [facility] u/s. PTL signs and symptoms reviewed. f/u 2wk. Flowsheet Date 12/08/2019 Jackson Score Blood Edema Fundus Height Fundus Units Glucose Ketones Leukocytes Nitrite Labor Signs Protein Cervic Dilation Cervic Effacement Cervic Station none neg Type Weight in lbs Pre/Post Dialysis Refused With clothes 208.234422672716 BP Diastolic BP Location Tested BP Systolic BP Type 70 L arm 118 sitting Fetus Heart Rate Present A 150 Fetus Movement A Yes Comments ob fu. No complains. Reviewe d 3hr gtt pos. refer to [facility], dietitian. Send glucometer, chem strips, lancets. [...] in lbs Pre/Post Dialysis Refused With clothes 207.837987040264 BP Diastolic BP Location Tested BP Systolic BP Type 72 L arm 124 sitting Fetus Heart Rate Present A 145 Fetus Movement A Yes Comments Pt c/o pain on hips when sle eping. Occ tightening muscle on ankle and foot. Denies other c/o. MFM u/s reviewed. 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 PTL signs and symptoms reviewed. f/u 2wk. Flowsheet Date 01/05/2020 Jackson Score Blood Edema Fundus Height Fundus Units Glucose Ketones Leukocytes Nitrite Labor Signs Protein Cervic Dilation Cervic Effacement Cervic Station 32 none neg Type Weight in lbs Pre/Post Dialysis Refused With clothes 205.063966620699 BP Diastolic BP Location Tested BP Systolic [...] in lbs Pre/Post Dialysis Refused With clothes 205.730449876843 BP Diastolic BP Location Tested BP Systolic [...] in lbs Pre/Post Dialysis Refused With clothes 205.339667832824 BP Diastolic BP Location Tested BP Systolic [...] in lbs Pre/Post Dialysis Refused With clothes 204.779216184878 BP Diastolic BP Location Tested BP Systolic [...] in lbs Pre/Post Dialysis Refused With clothes 205.253853129958 BP Diastolic BP Location Tested BP Systolic [...] in lbs Pre/Post Dialysis Refused With clothes 205.188246020361 BP Diastolic BP Location Tested BP Systolic [...] in lbs Pre/Post Dialysis Refused With clothes 201.823944064431 BP Diastolic BP Location Tested BP Systolic BP Type 80 L arm 120 sitting Fetus Heart Rate Present A 145 Fetus Movement A Yes Comments ob/fu - Pt was at [facility] on Saturday due to having contractions- [...] in lbs Pre/Post Dialysis Refused With clothes 192.030694688160 BP Diastolic BP Location Tested BP Systolic [...] 09/22/2019 Toxoplasmosis precautions (cats/raw meat) [email or web address] 09/22/2019 Bahai [email or web address] 09/22/2019 Hospital choice [email or web address] 09/22/2019 Blood [...]
== END 2024-08-13 14:51 | disposition home or self-care (01) ==
PROVIDERS: PCP Internal Medicine; Visit Provider Physician Assistant
DX: Z13.9 Encounter for screening, unspecified (principal); N30.01 Acute cystitis with hematuria

== ENCOUNTER → 2024-08-13 12:43 | Outpatient (BNVA) | payer OTHER, SELFPAY | PROVIDERS: PCP Internal Medicine; Visit Provider Physician Assistant | DX: N30.01 Acute cystitis with hematuria (principal) | CPT/HCPCS: 81003; 99212 ==

== ENCOUNTER 2024-08-13 20:03 | Emergency (ER) | payer OTHER, SELFPAY ==
--- NOTE | ~2024-08-13 | CT_ITS ---
CLINICAL HISTORY: Right flank pain? Stone CT abdomen and pelvis without contrast Comparison: CT/SR - CT ABDOMEN PELVIS WO IV CON - 12/21/22 19:06 EDT Findings: There is minimal dependent atelectasis. The liver, gallbladder, pancreas, spleen, adrenal glands, and kidneys are unremarkable. There is no urolithiasis or hydronephrosis. There is mild right periureteral fat stranding. There is mild fat stranding around the bladder. The appendix is normal. There is colonic diverticulosis. The remainder of the gastrointestinal tract is unremarkable. There is an intrauterine device. Ovaries are grossly unremarkable. The aorta is normal in diameter. There are no enlarged lymph nodes. There is no fracture or suspicious lytic or sclerotic lesion. IMPRESSION: 1. Mild fat stranding around the right ureter and bladder consistent with ureteritis and cystitis. 2. Colonic diverticulosis. This document has been electronically signed by: Blu Wilburn MD on 08/13/2024 23:58:20
--- NOTE | 2024-08-13 20:20 | ED_ITS ---
HPI - Abdominal Pain General Chief Complaint: Abdominal Pain Stated Complaint: abd pain, pain urination, back pain Time Seen by Provider: 08/13/24 21:36 Source: patient Mode of arrival: ambulatory Limitations: no limitations History of Present Illness ED Provider: HPI narrative: Patient's history of anxiety and depression comes here for lower abdominal discomfort cramping and frequency and dysuria for last 3 days got worse today with nausea and vomiting no fever no chills also complaining of right flank pain patient does not have any history of kidney stone does not get urine tract infection very often no hematuria patient was seen at urgent care center on prescribe cefuroxime and Pyridium yesterday for UTI Related Data Home Medications ?Medication ?Instructions ?Recorded ?Confirmed cholecalciferol (vitamin D3) 125 125 mcg PO DAILY 06/03/24 06/30/24 mcg (5,000 unit) capsule omega 8-bbg-wyz-fish oil 100 cap PO 06/03/24 06/30/24 mg-160 mg-1,000 mg capsule (Fish Oil) Previous Rx's ?Medication ?Instructions ?Recorded lisinopril 10 1 tab PO DAILY #90 tabs 05/06/24 mg-hydrochlorothiazide 12.5 mg tablet magnesium oxide 400 mg PO DAILY 30 days #30 tabs 05/18/24 ondansetron 8 mg disintegrating 8 mg PO Q8H #30 tabs 05/28/24 tablet Myrbetriq 50 mg tablet,extended 50 mg PO DAILY 90 days #90 tabs 06/03/24 release (mirabegron) solifenacin 5 mg tablet (Vesicare) 5 mg PO DAILY 30 days #30 tabs 06/03/24 duloxetine 30 mg capsule,delayed 90 mg (3 x 30 mg) PO DAILY 30 days 06/30/24 release #90 caps hydroxyzine HCl 25 mg tablet 25 mg PO TID PRN itching #90 tabs 06/30/24 mirtazapine 7.5 mg tablet 7.5 mg PO BEDTIME 30 days #30 tabs 06/30/24 prazosin 2 mg capsule 2 mg PO BEDTIME 30 days #30 caps 06/30/24 dextroamphetamine-amphetamine ER 30 mg PO QAM #30 caps 07/13/24 30 mg 24hr capsule,extend release (Adderall XR) cefuroxime axetil 500 mg tablet 500 mg PO Q12H #10 tabs 08/13/24 phenazopyridine 100 mg tablet 200 mg (2 x 100 mg) PO Q8H PRN 08/13/24 Pain #6 tabs cefuroxime axetil 500 mg tablet 500 mg PO BID 7 days #14 tabs 08/14/24 Allergies Allergy/AdvReac Type Severity Reaction Status Date / Time latex AdvReac Mild hives Verified 08/13/24 20:24 Review of Systems Review of Systems Yes all other systems are reviewed and are negative [facility] Past Medical History Medical History Nausea and vomiting in adult Acute respiratory disease Major depressive disorder, recurrent, severe with psychotic features Decreased hearing Tinnitus Reduced visual acuity Pyelonephritis (03/22/15) (08/04/19) Obesity (12/12/18) Migraine Menorrhagia Irritable bowel syndrome Insomnia Hiatal hernia Hemorrhoids Gastroesophageal reflux disease Fracture of hand (04/22/09) Female stress incontinence Blood in urine Severe carpal tunnel syndrome of right wrist Medical clearance for psychiatric admission Hypertriglyceridemia Positive Tinel's sign Positive Phalen maneuver Cervicalgia HTN (hypertension) Decreased hearing of both ears Environmental and seasonal allergies Tinnitus of both ears Knee pain Excessive daytime sleepiness Loud snoring Vitamin D deficiency Impaired fasting glucose Mixed dyslipidemia Morbid obesity Hiatal hernia with gastroesophageal reflux Family history of premature CAD Annual visit for general adult medical examination with abnormal findings Surgical History H/O endoscopy H/O wisdom tooth extraction Family History Family History Father Substance use disorder Mental health disorder Alcoholism Myocardial infarction acute, Onset Age: 55 Depression Maternal Uncle Testicular cancer Social History Social History Household Members: Family Household Members Other:: and 2 children Housing: House Do you presently have visiting nurse or other home services: No Alcohol intake: current Alcohol intake frequency: holidays/special occasions only Patient Tobacco Use Status: Never used Tobacco e-Cigarette/Vaping Use: Never Used Substance Use Type: Marijuana service: No Current occupational status: unemployed and other 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 Oriented X3. No acute distress. Eyes: No pallor or icterus ENT: Pharynx normal. Oral Mucosa moist Neck: Normal inspection. Neck supple. CVS: Normal heart rate and rhythm. Pulses normal. Respiratory: No respiratory distress. Equal air entry bilateral, no wheezing/rales/rhonchi Abdomen: Soft and diffuse discomfort suprapubic area Bowel sounds are present, no mass palpable, right CVA tenderness Skin: Skin warm and dry. Normal skin color. Normal skin turgor. Extremities: No lower extremity edema. No calf tenderness Neuro: Oriented X 3. No motor deficit. Course Course Course Narrative: This is a Rapid Medical Exam performed in triage by Rosa Maria Mujica PA-C. Full HPI, ROS and PE to be performed by primary ED provider. 43 yo F w/pmhx ADHD, SAMMY, HLD, DARON, obesity, presenting to the ED c/o lower abdominal pain & low back pain x1hr w/assoc N/V, & dysuria. denies hematuria. Was at earlier & they found blood in urine & WBC, given Rx for Ceftin which she hasnt taken yet. denies vaginal bleeding. Had IUD placed few weeks ago PE: uncomfortable, abd soft w/lower ttp, actively vomiting large amounts in triage Plan: labs, UA, SL Zofran given Medical Decision Making Medical Decision Making [facility] Narrative: Patient with acute cystitis with right CVA tenderness CT scan negative for pyelonephritis or kidney stone patient is feeling much better will discharge patient home on cefuroxime Differential Diagnosis Differential Diagnoses: The differential diagnosis associated with the presentation includes Kidney stone/pyelonephritis/cystitis/UTI Lab Data [facility] Lab Attestation statement: I reviewed the patient's lab results. 08/13/24 20:32 08/13/24 20:32 Labs: Lab Results 08/13/24 08/13/24 08/13/24 Range/Units 20:32 21:22 21:23 WBC 12.4 H (4.8-10.8) X10*3/uL RBC 4.30 (4.20-5.50) X10*6/uL Hgb 13.0 (12.0-16.0) g/dl Hct 37.0 (37.0-47.0) % MCV 86.0 (80.0-98.0) fL MCH 30.2 (27.0-33.0) pg MCHC 35.1 H (31.0-35.0) g/dl RDW 13.2 (11.0-16.0) % Plt Count 272 (160-400) X10*3/uL MPV 8.6 L (9.4-12.3) fL Immature Gran % (Auto) 0.4 (0.0-0.4) % Neut % (Auto) 67.2 (45-73) % Lymph % (Auto) 23.2 (20-40) % [place] % (Auto) 4.8 (2-11) % Eos % (Auto) 4.0 (0-4) % Baso % (Auto) 0.4 (0-2) % Lymph # (Auto) 2.9 (1.2-4.9) X10*3/uL [place] # (Auto) 0.6 (0.1-1.2) X10*3/uL Eos # (Auto) 0.5 H (0.0-0.4) X10*3/uL Baso # (Auto) 0.1 (0.0-0.2) X10*3/uL Abs Immat Gran (auto) 0.05 H (0.00-0.03) X10*3/uL Absolute Neuts (auto) 8.3 (2.0-8.3) x10*3/uL Absolute Nucleated RBC 0.000 (0.0-0.012) X10*3/uL Nucleated RBC % (auto) 0.0 (0.0-0.2) /100WBC Sodium 139 (135-145) mmol/L Potassium 4.1 (3.3-5.1) mmol/L Chloride 105 (96-108) mmol/L Carbon Dioxide 25 (22-29) mmol/L Anion Gap 13 (12-20) BUN 11 (9-16) mg/dL Creatinine 0.83 (0.5-1.4) mg/dL Estim Creat Clear Calc 103.2 Estimated GFR > 60 Random Glucose 124 H (60-115) mg/dL Calcium 9.8 (8.4-10.2) mg/dL Magnesium 2.0 (1.6-2.6) mg/dL Total Bilirubin 0.8 (0.0-1.0) mg/dL Direct Bilirubin 0.3 (0.0-0.5) mg/dL AST 22 (5-31) U/L ALT 26 (0-31) U/L Alkaline Phosphatase 65 (39-117) U/L Total Protein 7.7 (6.5-8.0) g/dL Albumin 4.5 (3.5-5.0) g/dL Lipase 19 (8-78) U/L Urine Color Dark Yellow Urine Appearance Cloudy Urine pH 6.0 (5.0-9.0) Ur Specific [place] 1.010 (1.005-1.025) Urine Protein 100 (2+) H (Neg-Trace) mg/dL Urine Glucose (UA) Negative (Negative) mg/dL Urine Ketones Negative (Negative) mg/dL Urine Blood Moderate (2+) H (Negative) Urine Nitrite Positive H (Negative) Ur Leukocyte Esterase Large (3+) H (Negative) Urine RBC 11-20 H (0-2) /HPF Urine WBC >50 H (0-5) /HPF Ur Squamous Epith Cells 0-2 (0-2) /HPF Urine Bacteria 2+ (None Seen) Hyaline Casts 0-2 (0-2) /LPF Urine Test NEGATIVE (NEGATIVE) Independent Interpretation I performed an independent interpretation of an: CT Scan Radiology Impression Discussion of test interpretation with radiology: I have reviewed the radiologist's reading. Medications Administered Discontinued Medications Generic Name Dose Route Start Last Admin Trade Name Freq PRN Reason Stop Dose Admin Ceftriaxone Sodium 1 gm 08/13/24 22:13 08/13/24 22:27 Ceftriaxone Sodium 1 Gm Vial IVPUSH 08/13/24 22:14 1 gm ONCE ONE Administration Sodium Chloride 1,000 mls @ 999 mls/hr 08/13/24 21:52 08/13/24 23:06 Ns IV 08/13/24 22:52 Infused .Q1H1M ONE Infusion Ketorolac Tromethamine 30 mg 08/13/24 21:52 08/13/24 22:02 Ketorolac Tromethamine 30 Mg/Ml Vial IVPUSH 08/13/24 21:53 30 mg ONCE ONE Administration Ondansetron HCl 4 mg 08/13/24 20:24 08/13/24 20:28 Ondansetron Odt 4 Mg Tab.Rapdis TRANSLINGU 08/13/24 20:25 4 mg ONCE ONE Administration Discharge Plan Discharge Clinical Impression: Acute cystitis Patient Disposition: Home, Self-Care Instructions: Urinary Tract Infection in Women (DC) Additional Instructions: Drink plenty of fluids Antibiotic as prescribed Tylenol/Motrin for pain Prescriptions: New cefuroxime axetil 500 mg tablet 500 mg PO BID 7 Days Qty: 14 0RF No Action lisinopril-hydrochlorothiazide 10-12.5 mg tablet 1 tab PO DAILY Qty: 90 1RF magnesium oxide 400 mg magnesium tablet 400 mg PO DAILY 30 Days Qty: 30 3RF dextroamphetamine-amphetamine [Adderall XR] 30 mg capsule,extended release 24hr 30 mg PO QAM Qty: 30 0RF Rx Instructions: Partial Fill upon patient request. cholecalciferol (vitamin D3) 125 mcg (5,000 unit) capsule 125 mcg PO DAILY Fish Oil 100-160-1,000 mg capsule PO solifenacin [Vesicare] 5 mg tablet 5 mg PO DAILY 30 Days Qty: 30 3RF mirabegron [Myrbetriq] 50 mg tablet extended release 24 hr 50 mg PO DAILY 90 Days Qty: 90 1RF ondansetron 8 mg tablet,disintegrating 8 mg PO Q8H Qty: 30 0RF duloxetine 30 mg capsule,delayed release(DR/EC) 90 mg PO DAILY 30 Days Qty: 90 2RF hydroxyzine HCl 25 mg tablet 25 mg PO TID PRN (Reason: itching) Qty: 90 1RF mirtazapine 7.5 mg tablet 7.5 mg PO BEDTIME 30 Days Qty: 30 2RF prazosin 2 mg capsule 2 mg PO BEDTIME 30 Days Qty: 30 2RF cefuroxime axetil 500 mg tablet 500 mg PO Q12H Qty: 10 0RF phenazopyridine 100 mg tablet 200 mg PO Q8H PRN (Reason: Pain) Qty: 6 0RF Interventions: ED Discharge Assessment Last Done: 08/14/24 01:45 Discharge Date/Time: 08/14/24 01:07 Print Language: Estonian
[2024-08-13 20:23] VITALS: BP 181/105; PULSE 101; RESP 20; TEMP 36.6; O2SAT 99; BMI 47.2
[2024-08-13] MEDS: Ondansetron ODT 4 MG TAB.RAPDIS TRANSLINGU (20:28)
[2024-08-13 20:39] LABS: MANUAL DIFF FLAG NO
[2024-08-13 20:43] LABS: Basophils Absolute Auto 0.1 X10*3/uL (0.0-0.2); Basophils Percent Auto 0.4 % (0-2); Eosinophils Absolute Auto 0.5 X10*3/uL (0.0-0.4); Imm Gran Abs Auto 0.05 X10*3/uL (0.00-0.03); Imm Gran Pct Auto 0.4 % (0.0-0.4); Lymphocytes Absolute Auto 2.9 X10*3/uL (1.2-4.9); Lymphocytes Percent Auto 23.2 % (20-40); Mean Corpuscular HGB Conc 35.1 g/dl (31.0-35.0); Mean Corpuscular Hemoglobin 30.2 pg (27.0-33.0); Mean Platelet Volume 8.6 fL (9.4-12.3); Monocytes Absolute Auto 0.6 X10*3/uL (0.1-1.2); Monocytes Percent Auto 4.8 % (2-11); Neutrophils Absolute Auto 8.3 x10*3/uL (2.0-8.3); Neutrophils Percent Auto 67.2 % (45-73); Platelet Count 272 X10*3/uL (160-400); Red Cell Distribution Width 13.2 % (11.0-16.0); White Blood Count 12.4 X10*3/uL (4.8-10.8)
[2024-08-13 21:00] LABS: Alanine Aminotransferase 26 U/L (0-31); Albumin Level 4.5 g/dL (3.5-5.0); Alkaline Phosphatase 65 U/L (39-117); Anion Gap 13 (12-20); Aspartate Amino Transferase 22 U/L (5-31); Bilirubin Direct 0.3 mg/dL (0.0-0.5); Bilirubin Total 0.8 mg/dL (0.0-1.0); Blood Urea Nitrogen 11 mg/dL (9-16); Calcium 9.8 mg/dL (8.4-10.2); Carbon Dioxide 25 mmol/L (22-29); Chloride 105 mmol/L (96-108); Creatinine Clr Calc Pharmacy 103.2; Estimated Glomerular Filt Rate > 60; Glucose Random 124 mg/dL (60-115); Lipase 19 U/L (8-78); Potassium 4.1 mmol/L (3.3-5.1); Sodium 139 mmol/L (135-145); Total Protein 7.7 g/dL (6.5-8.0)
[2024-08-13 21:27] VITALS: BP 158/81; PULSE 96; RESP 16; TEMP 36.7; O2SAT 97
[2024-08-13 21:31] LABS: Appearance Urine Cloudy; Color Urine Dark Yellow; Glucose Urine UA Negative (Negative); Leukocyte Esterase Urine Large (3+) (Negative); Nitrite Urine Positive (Negative); UMIC TRIGGER UACC YES; Urine Blood Moderate (2+) (Negative); Urine Ketones Negative (Negative); Urine Protein 100 (2+) mg/dL (Neg-Trace)
[2024-08-13 21:33] LABS: UPreg QC Valid YES; Urine Pregnancy NEGATIVE (NEGATIVE)
[2024-08-13 21:36] LABS: Bacteria Urine 2+ (None Seen); Hyaline Casts Urine 0-2 /LPF (0-2); Squamous Epithelial Cell Urine 0-2 /HPF (0-2); UACC Culture Trigger YES; WBC Urine >50 /HPF (0-5)
[2024-08-13] MEDS: Ketorolac Tromethamine 30 MG/ML VIAL IVPUSH (22:02)
[2024-08-13] MEDS: 0.9 % Sodium Chloride 1,000 ML 999 ML IV (22:08)
[2024-08-13] MEDS: cefTRIAXone sodium 1 GM VIAL IVPUSH (22:27)
[2024-08-14 01:45] VITALS: BP 158/81; PULSE 96; RESP 16; TEMP 36.7; O2SAT 97
== END 2024-08-14 01:07 | disposition home or self-care (01) ==
PROVIDERS: Physician Assistant; Emergency Provider Internal Medicine; PCP Internal Medicine
DX: N30.00 Acute cystitis without hematuria (principal); R10.30 Lower abdominal pain, unspecified; R30.0 Dysuria
CPT/HCPCS: 36415; 74176; 80048; 80076; 81001; 81025; 83690; 83735; 85025; 87086; 87088; 87186; 96361; 96374; 96375; 99284; J0696; J1885

== ENCOUNTER → 2024-08-13 21:52 | Outpatient (BNV) | payer OTHER, SELFPAY | PROVIDERS: Emergency Provider Internal Medicine; PCP Internal Medicine; Visit Provider Radiology Diagnostic Radiology | DX: K57.30 Diverticulosis of large intestine without perforation or abscess without bleeding (principal) | CPT/HCPCS: 74176 ==

== ENCOUNTER 2024-08-25 12:46 | Outpatient (AMB) | payer OTHER, SELFPAY ==
--- NOTE | 2024-08-25 13:02 | A.OFFPSYCH_ITS ---
Intake Intake Visit Reasons: f/u consultation Document Review Specialist Required: No Allergies latex Adverse Reaction (Mild, Verified 08/13/24 20:24) hives cefuroxime axetil Adverse Reaction (Uncoded 08/21/24 10:29) rash Medication List - Last Reconciled 08/25/24 by Lynn Kemp APRN cholecalciferol (vitamin D3) 125 mcg PO DAILY duloxetine 90 mg (3 x 30 mg) PO DAILY 30 days hydroxyzine HCl 25 mg PO TID PRN lisinopril-hydrochlorothiazide 10-12.5 mg 1 tab PO DAILY magnesium oxide 400 mg PO DAILY 30 days mirtazapine 7.5 mg PO BEDTIME 30 days Myrbetriq ER (mirabegron) 50 mg PO DAILY 90 days NS omega 7-qhw-nug-fish oil 100-160-1,000 mg (Fish Oil) caps PO ondansetron 8 mg PO Q8H phenazopyridine 200 mg (2 x 100 mg) PO Q8H PRN prazosin 2 mg PO BEDTIME 30 days solifenacin (Vesicare) 5 mg PO DAILY 30 days HPI- Psychiatric Chief Complaint: f/u consultation HPI Narrative: pt here for follow up re: mood, anxiety, and ADHD. pt has had a number of medical issues including failed iud whcih needed to be replaced and allergic re actionto antibiotic. Pt reports mood and anxiety improved overall; adderall not helping her ADHD symptoms and it is keeping her awake until 1 am or later. PHQ9=5 and GAD7=6 Past Psychiatric History: outpt tx since age 22. No I[facility] PAST MEDICTIONS: lexapro- increased anger wellbutrin- very negative/angry zoloft- woorked first time took - did not work on retrial prozac- ok for a bit and then stopped working effexor- excessive weight gain Subjective Subjective Subjective Medication Compliance: Yes Side effects from medications: No Review of Systems Medical Review of Systems: unchanged Mental Status Exam Mental Status Exam Patient Appearance: Well Grooomed Patient Orientation: Person, Place, Time and Situation Level of Consciousness: Awake Patient Behavior: Appropriate Mood Description: Cheerful and Anxious Affect Description: Cheerful and Anxious Patient Cognition Impaired: No Ability to Follow Directions: Good Speech Pattern: Clear and Excessive Memory Description: Intact Hallucinations: None Delusions: Not Present Thought Process: Intact Thought Content: positive for Intact and positive for Loose Associations Judgement: Fair Assessment and Plan Assessment & Plan (1) ADHD (attention deficit hyperactivity disorder), combined type: Status: Acute Code(s): F90.2 - Attention-deficit hyperactivity disorder, combined type (2) SAMMY (generalized anxiety disorder): Status: Acute Code(s): F41.1 - Generalized anxiety disorder (3) Major depressive disorder, recurrent, moderate: Status: Acute Code(s): F33.1 - Major depressive disorder, recurrent, moderate Plan stop adderall trial of concerta 27mg am return in 4 weeks Medications: New methylphenidate HCl ER (Concerta) Partial Fill upon patient request. 27 mg PO DAILY 30 tabs 0RF Refilled duloxetine 90 mg (3 x 30 mg) PO DAILY 90 caps 2RF 30 days hydroxyzine HCl 25 mg PO TID PRN 90 tabs 1RF itching mirtazapine 7.5 mg PO BEDTIME 30 tabs 2RF 30 days prazosin 2 mg PO BEDTIME 30 caps 2RF 30 days Discontinued dextroamphetamine-amphetamine 30 mg ER (Adderall XR) Partial Fill upon patient request. Discontinued Reason: Doctor's Order 30 mg PO QAM 30 caps 0RF Counseling and coordination of Care Pt. Self Management counseling: Behavior activation and Problem solving Medication management counseling: Effectiveness, Side effects, Dosing range, Duration, Drug interaction and Adherence Diagnosis and Prognosis Counseling: Accuracy of diagnosis, Prognosis over time, Impact of diagnosis on life functions, Impact of family relationship, Problematic behaviors secondary to diagnosis and Adequacy of current interventions Details: I spent 40 minutes reviewing the record, seeing the patient and documenting in the medical record. Counseling provided to the patient/caregiver as outlined below. Addressed patient/caregiver concerns regarding current medication regime including effective adherence. Addressed patient/caregiver concerns regarding diagnosis and prognosis including accuracy of diagnosis, prognosis over time, impact of diagnosis. Addressed patient/caregiver concerns regarding impact of recent stressors. COUNT INCLUDES THE [facility] Medical History Nausea and vomiting in adult Acute respiratory disease Major depressive disorder, recurrent, severe with psychotic features Decreased hearing Tinnitus Reduced visual acuity Pyelonephritis (03/22/15) (08/04/19) Obesity (12/12/18) Migraine Menorrhagia Irritable bowel syndrome Insomnia Hiatal hernia Hemorrhoids Gastroesophageal reflux disease Fracture of hand (04/22/09) Female stress incontinence Blood in urine Severe carpal tunnel syndrome of right wrist Medical clearance for psychiatric admission Hypertriglyceridemia Positive Tinel's sign Positive Phalen maneuver Cervicalgia HTN (hypertension) Decreased hearing of both ears Environmental and seasonal allergies Tinnitus of both ears Knee pain Excessive daytime sleepiness Loud snoring Vitamin D deficiency Impaired fasting glucose Mixed dyslipidemia Morbid obesity Hiatal hernia with gastroesophageal reflux Family history of premature CAD Annual visit for general adult medical examination with abnormal findings Surgical History H/O endoscopy H/O wisdom tooth extraction Family History Father Substance use disorder Mental health disorder Alcoholism Myocardial infarction acute, Onset Age: 55 Depression Maternal Uncle Testicular cancer Social History Household Members: Family Household Members Other:: and 2 children Housing: House Do you presently have visiting nurse or other home services: No Alcohol intake: current Alcohol intake frequency: holidays/special occasions only Patient Tobacco Use Status: Never used Tobacco e-Cigarette/Vaping Use: Never Used Substance Use Type: Marijuana service: No Current occupational status: unemployed and other 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 family has moved around a lot due to pt grew up in [facility]. lived with both parents; after her father lost his job they all moved in with grandmother; family experienced severe poverty- very traumatic. no running water, no food, no electricity at times. no telephone, no flushing toilets no lights. Father became ETOHIC and massive heart attack at age 55. Pt has 3 siblings. Substance History: none Trauma History: childhood severe poverty Coding Level of Care Code Est Pt Level 4 (97443) Diagnoses ADHD (attention deficit hyperactivity disorder), combined type F90.2 SAMMY (generalized anxiety disorder) F41.1 Major depressive disorder, recurrent, moderate F33.1
--- OUTSIDE RECORDS SUMMARY | 2024-08-25 13:53 | XMS_ITS | Data Portability ---
Author Organization [place] - [facility], [place] - [facility] - Address [address] [place] [address] Care Team Providers Care Lead Pastor Name Role Phone TREMAINE NINA Primary Care Provider Unavailabl e Assessment Encounter [...] 6-8 weeks. This visit was conducted via [place] website [employer] using both audio and video during the 2019 COVID-19 pandemic. Patient consented to non face to face service. Patient location: car Provider location: [facility] Start time: 1417 End time: 142 Participants [...] This visit was conducted via telehealth website [employer] using both audio and video during the 2020. Patient consented to non face to face service. Patient location: home Provider location: [facility] Start time: 1424 End time: 1429 Participants [...] This visit was conducted via telehealth website [employer] using both audio and video during the 2019. Patient consented to non face to face service. Patient location: home Provider location: [facility] Start time: 1352 End time: 1401 Participants [...] mg capsule,del ayed release 2021 022 [id number], [address], [place], [address], 15:13:01 duloxetine 60 mg capsule,del ayed release 04/06/ 2022 04/06/2 022 [facility], [address], [place], [address], 2 15:12:56 hydroxyzine HCl 50 mg tablet 2021 022 [facility], [address], [place], [address], 2 15:12:57 hydroxyzine HCl 50 mg tablet 2020 021 [facility], [address], [place], [address], 15:27:21 duloxetine 30 mg capsule,del ayed release 2020 021 [facility], [address], [place], [address], 15:27:17 duloxetine 60 mg capsule,del ayed release 2020 021 [facility], [address], [place], [address], 15:27:17 Patient TargetsNo targets recorded. Patient InstructionsNo instructions recorded. Reason for Referral None Reported. Problems Name Problem SNOMED Code Status Onset Date Resolution Date Notes Provider Name and Address Organization Details Recorded Time Multiple environm ental allergie s Active scotty sepulveda [facility] 6 12:23:04 Irritabl e bowel syndrome 94070088 Active celiac disease Ab testing Neg 11/03; improved w/ Gluten free diet scotty sepulveda [facility] 6 12:23:04 Gastroes ophageal reflux disease 278199811 Active scotty sepulveda [facility] 6 12:23:04 Mixed anxiety and depressi ve disorder 387084429 Active hx of post depressi on and took lexapro but felt poor response , wellbutr in was very neg side effects (bad vivid dreams of her hurting her family); zoloft was very good response but had to stop when breast feeding bad w/d (didn't wean) scotty sepulveda [facility] 6 12:23:03 Migraine 64559905 [facility] 12:23:03 Hiatal hernia 30462362 [facility] 6 12:23:04 Hemorrho ids 69367951 Completed 12/11/2018 tx'd w/ anusol-H C Timbo Mckeon DO [address], [place], [address] , [facility] 9 17:20:55 Female stress incontin ence 29622092 Active [facility]elyn [facility] 7 18:34:40 Pyelonep hritis 69504275 Completed 201412/11/2018 tx'd w/ Levaquin Timbo Mckeon DO [address], [place], [address] , [place] [facility] 9 17:19:51 Insomnia 518024739 [facility] 6 12:23:03 Fracture of hand 17152650 Completed 200912/11/2018 Left Timbo Mckeon DO [address], [place], [address] , [place] [facility] 9 17:20:04 Tinnitus 54779682 [facility] 6 12:23:04 Decrease d hearing 394033008 Completed 12/11/2018 Timbo Mckeon DO [address], [place], [address] , [place] [facility] 9 17:19:28 Reduced visual acuity 87357797 Active scotty banda null, [place] - [facility] 6 12:23:04 Sensorin eural hearing loss of bilatera l ears 345592800 Active Asha Bradford [address], [place], [address] , [place] [facility] 6 13:11:25 Menorrha obi 538969600 Active Margy Becker MD [address], [place], [address] , [place] [facility] 7 22:56:04 Blood in urine 39683790 Completed 12/11/2018 Timbo Mckeon DO [address], [place], [address] , [place] [facility] 9 17:19:34 Obesity 754157433 Active 2018 Timbo Mckeon DO [address], [place], [address] , [place] [facility] 9 01:18:28 Pregnanc y 89287047 Completed 201903/16/2020 Aliyahjanet White[place] null, [place] - [facility] 0 12:25:25 Gestatio nal diabetes mellitus class A2 23022645 Active 2019 Aliyahjanet [place] null, [place] - [facility] 0 12:25:22 Gestatio nal diabetes mellitus class A2 36876992 Completed 2019 Aliyahjanet [place] null, [place] - [facility] 0 12:25:22 Depressi ve disorder 09262950 Active 2020 Yaya Casanova DO [address], [place], [address] , [place] [facility] 1 15:54:10 Notes:hx plantar fasciitis; hx [...] Non-Stress Test completed Malka VANEGAS, Cali [address], [place], [address], [facility] 02/25/2020 13:33:54 02/18/20 20 Non-Stress Test completed Cali Ace MD [address], [place], [address], [facility] 02/18/2020 15:49:47 02/11/20 20 Non-Stress Test completed Cali Ace MD [address], [place], [address], [facility] 02/11/2020 15:03:18 01/12/20 20 Non-Stress Test completed Cali Ace MD [address], [place], [address], [place] [facility] 01/12/2020 18:21:04 12/19/19 19 Date of Last Pap Smear completed Timbo Mckeon DO [address], [place], [address], [facility] 12/24/2018 14:45:47 06/30/19 17 Ortho Corticosteroid Injection completed Vy Feliciano [facility] 06/29/2016 12:26:26 06/29/19 17 Cystoscopy (female) completed Chuck VANEGAS, [address], [place], [address], [facility] 06/28/2016 12:41:47 06/14/19 17 Bladder Scan completed Chuck VANEGAS, [address], [place], [address], [facility] 06/14/2016 13:22:58 04/05/20 16 Tympanometry completed Asha Bradford [address], [place], [address], [facility] 04/05/2016 13:11:04 04/05/20 16 Audiogram.old completed Asha Bradford [address], [place], [address], [facility] 04/05/2016 13:11:04 11/21/19 15 Other completed Georgi Moctezuma MD [address], [place], [address], [facility] 01/13/2016 00:18:30 10/21/19 15 Other completed Georgi Moctezuma MD [address], [place], [address], [facility] 01/13/2016 00:18:30 04/22/19 00 [place] Teeth Removed completed Georgi Moctezuma MD [address], [place], [address], [facility] 01/12/2016 22:50:32 Oral surgery procedure completed Dena Argueta [facility] 04/06/2016 12:36:17 Imaging Results None recorded. Procedure Notes None recorded. Medical Equipment None Reported. Allergies Allergen ID Allergen Name Allergen Category Reaction Reaction Severity Criticality Documentation Date Start Date Code Code System Note Provider Name and Address Organization Details Recorded Time 369574 latex environme nt,medica tion hives moderate Not available 01/12/2016 36395 91 RxNorm Georgi Moctezuma MD [address], [place], [address], [facility] 6 22:23:54 482697 acetamino phen / hydrocodo ne medicatio n other moderate Not available 04/05/2016 93151 2 RxNorm facia l numbn ess scotty banda null, [facility] 6 12:23:03 122844 Wellbutri n medicatio n Not available Not available Not available 06/18/2016 87775 RxNorm vivid dream s/fri ghten ing ; used w/ post partu m alivia Moctezuma MD, Georgi Costa [address], [place], [address], [facility] 7 11:10:40 516693 adhesive tape environme nt,medica tion Not available Not available Not available 03/16/2020 53550 UNK Aliyah Julian null, [facility] 0 12:21:24 Medications Name Sig Start [...] e 137 mcg (0.1 %) nasal spray [place] 1 spray every day by intranas al [...] Not Available Not Available Not Available FreeStyle [place] Lite kit 03/16 completed Not Available Not [...] Smoking Status Never Smoker 12/11/18 Kathy Guallpa [facility], [place] - [facility] 12/11/2018 16:59:59 Do You Have An Advance Directive? No I Gave Her The Form For The Living Will And Health Power Of Clam Shucker, She Does Want To Be Resuscitated. She Does Not Want To Be Maintained On Chronic Life Support If There Is Little Hope Of A Meaningful Recovery. - 12/18/2018 Information not available 12/18/2018 What Is Your Level Of Alcohol Consumption? None [email or web address] Information not available 10/27/2019 Are You Blind [...] COVID-19 While That Case Was Ill? No [email or web address] Information not available 07/30/2019 In The 14 Days Before Symptom Onset, Have You Had Close Contact With A Person Who Is Under Investigation For COVID-19 While That Person Was Ill? No Information not available 07/30/2019 Have You Been To An Area Known To Be High Risk For COVID-19? No [email or web address] Information not available 07/30/2019 What Type Of Diet Are You Following? REGULAR Low Sodium Information not available 01/12/2016 Which Illicit Or Recreational Drugs Have You Used? None Information not available 12/11/2018 Do You Or Have You Ever Used E-cigarettes Or Vape? 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 No 12/11/18 Mh Information not available 04/06/2016 Have You Traveled Outside Of The [place] In The Last 21 Days (3 Weeks)? No Information not available 04/06/2016 Do You Have Any Zoroastrianism Beliefs That May Impact Your Health Care Decisions? No Does Not Follow Any Mandaeism Information not available 12/11/2018 Did You Hurt Yourself When You Fell In The Last Year? No 12/11/18 Mh Information not available 04/06/2016 Education: 12 Information not available 12/11/2018 Marital Status Informatio n not available 01/12/2016 What Was The Date Of Your Most Recent Tobacco Screening? 09/12/2020 [email or web address] Information not available 09/15/2020 Are You Sexually [...] Details LastModified Time Father Myocardial infarction 55 [email or web address] Not available 04/25 18:44:02 Father Hypertensive disorder [email or web address] Not available 2016 18:44:02 Father Hyperlipidem ia [email or web address] Not available 2016 18:44:02 Paternal Aunt Malignant tumor of cervix [email or web address] Not available 2016 18:44:02 Paternal Aunt Dementia [email or web address] Not a vailable 04/25/2016 18:44:02 Mother Pyelonephrit [...] quadrivalent , PF 1 completed Maile sepulveda [facility] 03/15/2021 12:10:26 COVID-19, mRNA, LNP-S, PF, 30 mcg/0.3 mL dose 1 completed Savana sepulveda [facility] 08/30/2020 10:45:30 COVID-19, mRNA, LNP-S, PF, 30 mcg/0.3 mL dose 1 completed Savana sepulveda [facility] 08/30/2020 10:45:45 COVID-19, mRNA, LNP-S, PF, 30 mcg/0.3 mL dose 1 completed Maile sepulveda [facility] 03/15/2021 11:48:03 Influenza, split virus, trivalent, PF 8 cancelled patient objection Not Available [facility] 05/09/2019 02:33:30 Influenza, MDCK, quadrivalent , PF 8 completed Not Available [facility] 05/09/2019 03:23:32 Influenza, MDCK, quadrivalent , PF 9 completed Not Available [facility] 05/09/2019 03:01:50 Influenza, split virus, quadrivalent , PF 0 completed Savana sepulveda [facility] 01/05/2020 16:31:36 Tdap 3 completed Not Available [facility] 03/07/2020 09:20:47 Past Encounters Encounter ID Performer Location Encounter Start Date Encounter Closed Date Diagnosis/Indication Diagnosis SNOMED-CT Code Diagnosis ICD10 Code Diagnosis Note [id number] Rhianna VANEGAS, Georgi Costa [facility] [address] [facility],[place] [address] 01/12/2016 10:23:10 01/13/2016 12:09:34 Adult health examination 661126938 Z00.00 Hematology screening test 024557040 Z13.0 Hyperlipid emia screening 190020743 Z13.220 Endocrine/ metabolic screening 600518632 Z13.228 Mixed anxi ety and depressive disorder 733202667 F41.8 Tinnitus 60285668 H93.13 Decreased hearing 604191 001 H91.93 Reduced visual acuity 13 199791 H54.7 Contraception care 75464 5005 Z30.40 [id number] Lv lucas MD, Chandrakant Shipley [facility] [place] POS [address] [place] [address], [address] [place] [address] 04/05/2016 11:57:03 04/05/2016 13:17:18 Tinnitus 60820910 H93.13 At this time the patient has bilateral tinnitus, most likely due to her bilateral hearing loss. Please see plan as described above. FG Allergic r hinitis caused by pollen 88057648 J30.1 At this time the patient has [...] Sensorineu ral hearing loss of bilateral ears 998396955 H90.3 At this time the patient comes [...] if she wishes to move forward with demo. She had no further questions for now. She will follow up as needed. FG Dizziness 722088019 R42 At this time the patient also complains of an off balance feeling with walking up and down stairs, but does not have any other problems. We will see if this improves on nasal steroid spray. She had no further questions and will follow up as needed for now. FG [id number] Asha Brafdord [facility] [place] POS [address] [place] [address],[address] [place] [address] 04/05/2016 13:09:55 04/05/2016 13:12:09 Sensorineural hearing loss of bilateral ears 590086033 H90.3 [id number] Eugenio VANEGAS, Margy Valdivia [facility] [place] POS [address] [place] [address],[place] [address] [facility] [place] [address] 04/06/2016 12:09:16 04/06/2016 13:47:10 Gynecologic examination 26660196 Z01.419 Screening for malignant neoplasm of cervix 020743306 Z12.4 Menorrhagia 334748960 N9 2.0 History of urinary tract infection 0355561216 107 Z87.440 Surveillan ce of contraception 333450163 Z30.40 [id number] Eugenio VANEGAS, Margy Valdivia [facility] [place] POS [address] [place] [address],[address] [place] [address] 04/25/2016 17:48:13 04/25/2016 19:53:53 Menorrhagia 964503248 N92.0 Blood in urine 66574894 R31.9 [id number] Rhianna VANEGAS, Georgi Costa [facility] POS [address],[place] [address] 05/08/2016 10:01:31 05/08/2016 12:08:23 Migraine 14175193 G43.909 Mixed anxi ety and depressive disorder 887760713 F41.8 Carpal davonte simon syndrome 90781745 G56.00 Insomnia 279076989 G47.0 0 Hand pain 97953627 M79.6 42 Vitamin D deficiency 347 85748 E55.9 [id number] Chuck VANEGAS, [facility]OLOGY [facility] POS [address] [place] [address] 06/14/2016 12:22:40 06/14/2016 14:22:12 Microscopic hematuria 991841204 R31.21 she had 2-5 rbc on last ua done 04/26.17-has had full workup done in the past by another urologist and was negative but it was a while agovijay send urine for c/s and cytology-f ollow up for cystoscopy in office Renal colic 1744127 N23 she is having bilateral flank pain-previ ous urologist had checked a renal us but this may not picking supervisor renal stones-jc l do ct scan for stone search prior to cystoscopy [id number] Rhianna VANEGAS, Georgi Costa [facility] POS [address],[place] [address] 06/18/2016 10:33:06 06/18/2016 12:04:21 Mixed anxiety and depressive disorder 493908535 F41.8 [id number] Chuck VANEGAS, [facility]Y [facility] POS [address] [place] [address] 06/28/2016 12:09:59 06/28/2016 12:45:15 Blood in urine 14550833 R31.9 her cystoscopy shows mild chronic bullous cystitis and a diverticul um, mild grade 1 trabeculat ions-will start on suppressiv e dose macrodanti n for one monthfollo w up in 3mos [id number] Donnell VANEGAS, Luis Soliz [facility] POS [address] [place] [address] 06/29/2016 11:24:40 07/13/2016 10:46:48 Hand pain 27727344 M79.643 Carpal davonte simon syndrome 73002298 G56.01 G56.02 [id number] Donnell VANEGAS, Luis Soliz [facility] [place] POS [address] [place] [address] 07/13/2016 11:07:42 07/13/2016 13:24:50 Pain of wrist region 44923428 M25.531 Hand pain 42116390 M79.6 43 Carpal davonte simon syndrome 90010588 G56.01 G56.02 [id number] Rhianna VANEGAS, Georgi Costa [facility] POS [address],[place] [address] 07/16/2016 10:58:41 07/16/2016 11:42:57 Mixed anxiety and depressive disorder 190056356 F41.8 [id number] Donnell VANEGAS, Luis Soliz [facility] [place] POS [address] [place] [address] 08/13/2016 11:24:07 08/13/2016 12:23:07 Hand pain 09171511 M79.641 Pain of wrist region 566 13523 M25.531 Carpal davonte simon syndrome 63069065 G56.01 G56.02 [id number] Donnell VANEGAS, Luis Reynaoli [facility] [place] [address] [place] [address] 09/20/2016 11:45:56 09/20/2016 14:44:21 Pain of wrist region 25930228 M25.531 M25.532 Hand pain 96758745 M79.6 41 Carpal davonte simon syndrome 94282369 G56.01 G56.02 [id number] Chuck VANEGAS, [facility] [place] POS [address] [facility] [place] [address] 10/04/2016 11:54:33 10/04/2016 12:31:12 Blood in urine 39130696 R31.9 she had history of microhemat uriawas given 3mos of suppressiv e dose abxhas not seen any blood in urinewill check ua/culture Bladder mu scle dysfunction - overactive 954865018 N32.81 she goes to bathroom every 2 hours during day and 2 times at night, occ urge incontinen cetrial of myrbetriq Female str ess incontinence 46826806 N39.3 -she does not require pads for the problemonl y occurs occasional ly with sneezingdi scussed treatment options- e will observe for now [id number] Donnell VANEGAS, Luis Soliz [facility] [place] [address] [place] [address] 10/08/2016 09:47:26 10/08/2016 10:46:23 Pain of wrist region 18674907 M25.531 M25.532 Hand pain 66987715 M79.6 41 Carpal davonte simon syndrome 33412586 G56.01 G56.02 [id number] Donnell VANEGAS, Luis Soliz [facility] POS [address] [facility],[address] [place] [address] 11/09/2016 10:50:45 11/09/2016 12:33:48 Pain of wrist region 58359175 M25.531 M25.532 Neck pain 10774483 M54.2 Hand pain 08605988 M79.6 41 Carpal davonte simon syndrome 98874809 G56.01 G56.02 [id number] Rhianna VANEGAS, Georgi [place] [address],[place] [address] 11/21/2016 10:22:19 12/11/2016 16:16:59 Low back pain 191468496 M54.5 Snoring 72130680 R06.83 [id number] Georgi Moctezuma MD AM POS [address],[place] [address] 01/10/2017 16:20:44 01/10/2017 17:19:55 Pain in left knee 8858557053 51843 M25.562 Depressive disorder 3548 9007 F32.89 Fatigue 10095767 R53.83 [id number] Chuck VANEGAS, Vibha [facility] - [facility]Y [facility] POS [address] [place] [address] 01/31/2017 11:27:16 01/31/2017 12:47:19 Bladder muscle dysfunction - overactive 919660499 N32.81 she goes to bathroom every 2 hours during day and 2 times at night, occ urge incontinen cemyrbetri q didn't help and wasn't covered Female str ess incontinence 02801276 N39.3 she is more bothered by it latelywoul d like to try physical therapyref erral to at [facility] given [id number] Tete Brian DO [facility] Maddie [facility] AM#1 POS [address] [place] [address] 03/08/2017 11:55:53 03/13/2017 00:11:33 Fatigue 65242141 R53.83 --concerns for fatigue and insomnia. Have discussed sleep hygeine techniques with patient and reviewed the sleep study with her. Discussed weight loss and controllin g nasal congestion .--Pt will attempt these and follow up in the next 3 months. Allergic rhinitis 893102 04 J30.9 --nasal congestion Obesity 315455075 E66.9 --discusse d keeping track of her calories and aiming to eat about 500 calories less then what she normally eats.--Pt should f/u in 3 months on weight loss. [id number] Tete Brian DO [facility] Maddie [facility] AM#1 [address] [place] [address] 06/12/2017 10:00:03 06/12/2017 10:41:36 Active or passive immunization 461470779 Z23 Fatigue 24731063 R53.83 --cont use of breathe right strips and use nasal steroid. Allergic rhinitis 238196 04 J30.9 --nasal congestion continued. Increase cetirizine to 10 mg daily, but go back to 5 mg if she feels overly fatigued. Cont fluticason e and also start azelastine daily. Gastroesop hageal reflux disease 472971290 K21.9 [id number] Tete Brian DO [facility] AM#1 POS [address] [place] [address] 08/12/2017 10:54:36 08/12/2017 11:48:10 Obesity 113929595 E66.9 --discusse d weight loss and diet again Insomnia 902839642 G47.0 0 --pt instructed to take amitriptyl ine daily.--Co unselled on possible side effects. RTC if insomnia worsens Neck pain 44034366 M54.2 --negative adsons test, negative spurling sign. Muscle spasm in b/l neck.--Giv en exercises for neck. OTC tylenol and ibuprofen. RTC as needed. Migraine 46363922 G43.90 9 [id number] RocTete valero DO [facility] AM#1 POS [address] [place] [address] 02/11/2018 10:03:22 02/11/2018 10:50:04 Administration of influenza vaccine 96799963 Z23 Migraine 20572588 G43.90 9 --fioricet , amitriptyl ine and topiramate Insomnia 757221839 G47.0 0 --pt instructed to take amitriptyl ine daily.--Co unselled on possible side effects. RTC if insomnia worsens Environmental allergy 42 9274600 T78.49XA [id number] Nitin Laguerre MD [facility] AM#1 POS [address] [place] [address] 04/02/2018 14:24:14 04/02/2018 15:10:58 Adult health examination 043506828 Z00.00 Migraine 28883268 G43.90 9 [id number] Timbo Mckeon DO [facility]#1 POS [address] [facility] [place] [address] 12/11/2018 16:42:55 12/11/2018 17:56:44 Bladder muscle dysfunction - overactive [id number] N32.81 she has urinary incontinen ce and requesting a refill of the detrol, this has helped her in the past Body mass index 30+ - obesity 621810829 Z68.39 The patient's current weight is 209# with a height of 5' 1.25 and a correspond ing BMI (Body Mass Index) of 39.2. The medical definition of Obesity is a BMI greater than 30. Your [place] Body Weight is approximat malinda about 116#. [...] migraine prophylaxi s and weight loss. Migraine 24138968 G43.90 9 see the above plan [id number] Timbo Mckeon DO [facility]#1 POS [address] [facility],[address] [place] [address] 12/18/2018 09:57:19 12/18/2018 11:37:10 Adult health examination 498827571 Z00.00 Female Complete Physical Exam: I discussed [...] exercise, diet. Achieve/ma intain ideal body weight. [place] body weight is about 116 pounds,Adv anced directives : I gave the patient the form for LIVING WILL and health power of mergers and acquisitions attorney from the [place] [employer], the patient does want to be resuscitat ed but the patient does not want to be maintained on chronic life support if there is little hope of meaningful recovery. Active or passive immunization 881201132 Z23 Flu vaccine today, She is up to date with the Tdap Body mass index 30+ - obesity 341624244 Z68.38 The patient's current weight is 206.75# with a height of 5' 1.25 and a correspond ing BMI (Body Mass Index) of 38.7. The medical definition of Obesity is a BMI greater than 30. Your [place] Body Weight is approximat malinda about 116#. A reduced calorie, reduced carbohydra te weight reduction diet as well as increased activity.. She has lost about 3# since the last visit Hyperhidro sis of axilla 968226914 L74.510 Drysol Jessie.ly to axilla once daily at first and then about three times per week, do not apply to fresh shaven skin. Elevated blood-pressure reading without diagnosis of hypertension 214103958 R03.0 I encouraged the patient to check the blood pressure and log the results. Please follow a reduced sodium diet and maintain/a chieve ideal body weight. [id number] Malka VANEGAS, Cali Carter [facility] - COMM[facility] ENGAGEMENT COORDINATOR [facility] POS [address] [place] [address] 07/30/2019 10:48:16 07/30/2019 12:44:41 test positive 503310633 Z32.01 Mild hyper emesis gravidarum 52121278 O21.0 Reviewed and hyperemesi s with patient. Reviewed diet at length. Questions answered. Recommend consider hold PNV. Start vitamin B6, unisom. Ob dating u/s in 1 week. f/u 1wk. Amenorrhea 92023117 N91. 2 Reviewed findings, positive test. [id number] Malka VANEGAS, Cali Carter [facility] - COMMUN[facility] ENGAGEMENT COORDINATOR [facility] POS [address] [place] [address] 08/04/2019 11:31:16 08/04/2019 13:34:46 Disorder of menstruation 062701766 N92.6 Ob u/s reviewed, show viable iup consistent with LMP dating. Reviewed with patient. Routine an tenatal care 538908217 Z34.81 Z3A.08 Venereal d isease screening 756696235 Z11.3 Advanced m aternal age 785943234 O09.899 [id number] Malka VANEGAS, [facility] - COMMUNITY ENGAGEMENT COORDINATOR [facility]ON POS [address] [place] [address] 7 08/18/2019 11:25:44 08/18/2019 13:21:34 Advanced maternal age 972853351 O09.899 Routine an tenatal care 377348632 Z34.81 Z3A.08 Mild hyper emesis gravidarum 10730791 O21.0 mostly resolved [id number] Malka VANEGAS, [facility] - COMMUNITY ENGAGEMENT COORDINATOR [facility] POS [address] [place] [id number] 7 09/22/2019 13:57:14 09/22/2019 14:40:34 Multigravida of advanced maternal age 588347792 O09.522 Z3A.15 [id number] Malka VANEGAS, [facility] POS [address] [place] [id number] 7 10/20/2019 13:50:29 10/20/2019 15:17:10 Multigravida of advanced maternal age 515956008 O09.523 Z3A.19 [id number] Primitivo VANEGAS, Dickson [facility] - [facility] [employer] POS [address] [place] [address] 5 10/27/2019 10:57:43 10/27/2019 14:41:15 Advanced maternal age 915499796 O09.899 expo sure to alcohol 035045522 O35.4XX9 expo sure to drug 833163960 O35.5XX9 Tolterodin e exposure [id number] Malka VANEGAS, [facility] - COMMUNITY ENGAGEMENT COORDINATOR [facility] POS [address] [place] [id number] 7 11/24/2019 14:02:44 11/24/2019 15:47:27 Advanced maternal age 357412484 O09.899 Z3A.24 [id number] Malka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 With clothes 201.638689633069 BP Diastolic BP Location Tested BP Systolic BP Type 80 R arm 138 sitting Fetus Heart Rate Present Fetus Movement Comments Initial ob visit -In office ob dating us today - c/o nausea. Ob u/s reviewed, show viable iup consistent with LMP dating. Reviewed with patient. Nausea, cont. Able to tolerate some po. Reviewed [place], patient would like to proceed. Reviewed diet and course. f/u 2wk, [place] next visit. labs next visit. Flowsheet Date 08/18/2019 Jackson Score Blood Edema Fundus Height Fundus Units Glucose Ketones Leukocytes Nitrite Labor Signs Protein Cervic Dilation Cervic Effacement Cervic Station none neg Type Weight in lbs Pre/Post Dialysis Refused With clothes 202.835471481520 BP Diastolic BP Location Tested BP Systolic BP Type 78 R arm 130 sitting Fetus Heart Rate Present A 150 Fetus Movement Comments ob/fu -Initial ob labs drawn today- c/o pelvic cramping due to constipation on Saturday, Dr. Marquez prescribed Dulcolax (bisacodyl) 5 mg tablet,delayed release. Pt has been feeling better. No other c/o. labs today. [place] test reviewed. Patient would like to proceed. N/V much improved. PTL signs and symptoms reviewed. f/u 5wk. Flowsheet Date 09/22/2019 Jackson Score Blood Edema Fundus Height Fundus Units Glucose Ketones Leukocytes Nitrite Labor Signs Protein Cervic Dilation Cervic Effacement Cervic Station trace none neg Type Weight in lbs Pre/Post Dialysis Refused With clothes 205.296030715544 BP Diastolic BP Location Tested BP Systolic BP Type 80 L arm 132 sitting Fetus Heart Rate Present A 150 Fetus Movement Comments ob/fu - nausea has decreased . c/o pelvic pain when standing or shifting side to side in bed. Reviewed [place] neg. No other c/o. PTL signs and symptoms reviewed. Sched [facility] u/s. f/u 4wk. Flowsheet Date 10/20/2019 Jackson Score Blood Edema Fundus Height Fundus Units Glucose Ketones Leukocytes Nitrite Labor Signs Protein Cervic Dilation Cervic Effacement Cervic Station 20 none neg Type Weight in lbs Pre/Post Dialysis Refused With clothes 208.62922631057 BP Diastolic BP Location Tested BP Systolic BP Type 78 R arm 120 sitting Fetus Heart Rate Present A 150 Fetus Movement A Yes Comments ob/fu - MFM scheduled on 10/26. c/o continues to have nausea, frequent crackling in her right ear, nasal congestion, mild nose bleeds. No other c/o. Exam neg, TM neg. recommend saline mist. [facility] u/s sched 10/26. PTL signs and [...] in lbs Pre/Post Dialysis Refused With clothes 206.687081492366 BP Diastolic BP Location Tested BP Systolic BP Type 72 L arm 124 sitting Fetus Heart Rate Present A 150 Fetus Movement A Yes Comments Glucose and cbc labs today. Ingrown hair has been having some discomfort. Exam neg. 1hr gluc today. Reviewed [facility] u/s. PTL signs and symptoms reviewed. f/u 2wk. Flowsheet Date 12/08/2019 Jackson Score Blood Edema Fundus Height Fundus Units Glucose Ketones Leukocytes Nitrite Labor Signs Protein Cervic Dilation Cervic Effacement Cervic Station none neg Type Weight in lbs Pre/Post Dialysis Refused With clothes 208.455144175571 BP Diastolic BP Location Tested BP Systolic BP Type 70 L arm 118 sitting Fetus Heart Rate Present A 150 Fetus Movement A Yes Comments ob fu. No complains. Reviewe d 3hr gtt pos. refer to [facility], dietitian. Send glucometer, chem strips, lancets. [...] in lbs Pre/Post Dialysis Refused With clothes 207.009031151092 BP Diastolic BP Location Tested BP Systolic BP Type 72 L arm 124 sitting Fetus Heart Rate Present A 145 Fetus Movement A Yes Comments Pt c/o pain on hips when sle eping. Occ tightening muscle on ankle and foot. Denies other c/o. MFM u/s reviewed. 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 PTL signs and symptoms reviewed. f/u 2wk. Flowsheet Date 01/05/2020 Jackson Score Blood Edema Fundus Height Fundus Units Glucose Ketones Leukocytes Nitrite Labor Signs Protein Cervic Dilation Cervic Effacement Cervic Station 32 none neg Type Weight in lbs Pre/Post Dialysis Refused With clothes 205.538309664829 BP Diastolic BP Location Tested BP Systolic [...] in lbs Pre/Post Dialysis Refused With clothes 205.208360259069 BP Diastolic BP Location Tested BP Systolic BP Type 72 L arm 112 sitting Fetus Heart Rate Present A 135 Fetus Movement A Yes Comments Ob f/u, c/o still having leg cramps. States had episode of dizziness resolved after Juice. BS has been better. NST reactive. [facility] u/s schedule for next . PTL [...] in lbs Pre/Post Dialysis Refused With clothes 205.468969267173 BP Diastolic BP Location Tested BP Systolic BP Type Fetus Heart Rate Present A 150 Fetus Movement A Yes Comments Ob/fu - c/o dizziness, Mild bilateral swelling on hands and feet, sinus pressure occasional, using antihistamine as needed. BS occas elevated, insulin adjusted per [facility]. Recently hospitalized for dizziness, echo neg, holter [...] in lbs Pre/Post Dialysis Refused With clothes 204.091913034359 BP Diastolic BP Location Tested BP Systolic [...] in lbs Pre/Post Dialysis Refused With clothes 205.460444235749 BP Diastolic BP Location Tested BP Systolic [...] in lbs Pre/Post Dialysis Refused With clothes 205.275317190705 BP Diastolic BP Location Tested BP Systolic [...] in lbs Pre/Post Dialysis Refused With clothes 201.085117929690 BP Diastolic BP Location Tested BP Systolic BP Type 80 L arm 120 sitting Fetus Heart Rate Present A 145 Fetus Movement A Yes Comments ob/fu - Pt was at [facility] L[facility] on Saturday due to [...] in lbs Pre/Post Dialysis Refused With clothes 192.007063610471 BP Diastolic BP Location Tested BP Systolic [...] 09/22/2019 Toxoplasmosis precautions (cats/raw meat) [email or web address] 09/22/2019 Mandaeism [email or web address] 09/22/2019 Hospital choice [email or web address] 09/22/2019 Blood [...]
--- OUTSIDE RECORDS SUMMARY | 2024-08-25 13:54 | XMS_ITS | Continuity of Care Document ---
Author Name [facility] Organization [facility] Care Team Providers Care Face Man Name Role Phone [facility] Unavailable Unavailable Medications Combined list of outpatient [...] CITRON PHARMA L, 500 ea. BOTTLE Active [id number] 4 2023 10 Pharmac y Data Transac tion Service Facilit y Benzonatate ([employer]) 100 CAPSULE in 1 BOTTLE Active [id number] 06/26/19 2 4 2023 60 Pharmac y Data Transac tion Service Facilit y DIAZEPAM (DIAZEPAM), 5MG, TABLET, ORAL, IVAX PHARMACEUT, 100 ea. BOTTLE Active [id number] 4 2023 10 Pharmac y Data Transac tion Service Facilit y DULOXETINE HCL (DULOXETINE HCL), 60 MG, CAPSULE DR, ORAL, BRECKENRIDG E, 90 ea. BOTTLE Active [id number] 4 2023 90 Pharmac y Data Transac tion Service Facilit y DULOXETINE HCL (DULOXETINE HCL), 60 MG, CAPSULE DR, ORAL, BRECKENRIDG E, 90 ea. BOTTLE Active [id number] 4 2023 90 Pharmac y Data Transac tion Service Facilit y LIDOCAINE (lidocaine) , 5 %, ADH. PATCH, TOPICAL, AMNEAL PHARMACE, 30 ea. BOX Active [id number] 4 2023 30 Pharmac y Data Transac tion Service Facilit y LISINOPRIL (lisinopril ), 10 MG, TABLET, ORAL, LUPIN PHARMACEU, 1000 ea. BOTTLE Active [id number] 03/20/ 2024 30 Pharmac y Data Transac tion Service Facilit y LISINOPRIL (lisinopril ), 10 MG, TABLET, ORAL, LUPIN PHARMACEU, 1000 ea. BOTTLE Active [id number] 4 2023 30 Pharmac y Data Transac tion Service Facilit y LISINOPRIL- HCTZ (LISINOPRIL /HYDROCHLOR OTHIAZIDE), 10-12.5MG, TABLET, ORAL, LUPIN PHARMACEU, 100 ea. BOTTLE Active [id number] 4 2023 30 Pharmac y Data Transac tion Service Facilit y LISINOPRIL- HCTZ (LISINOPRIL /HYDROCHLOR OTHIAZIDE), 10-12.5MG, TABLET, ORAL, LUPIN PHARMACEU, 100 ea. BOTTLE Active [id number] 4 2023 30 Pharmac y Data Transac tion Service Facilit y SULFAMETHOX AZOLE-TRIME THOPRIM (sulfametho xazole/trim ethoprim), 800-160 MG, TABLET, ORAL, RISING PHARM, 100 ea. BOTTLE Active [id number] 4 2023 14 Pharmac y Data Transac tion Service Facilit y Allergies, Adverse Reactions, Alerts Combined list of allergies from Department of Defense and Veterans Affairs facilities. It does not include entries that were removed or entered in error. Substance Category Reaction Severity Reaction type Status Date Reported Comments Source acetaminophe n-hydrocodon e Drug allergy Active One or More [facility] Facilities TRANSMISSION SUPERVISOR ADHESIVES Propensity to adverse reaction (finding) active 0 [facility] Adhesives Allergy to substance Active One or More [facility] Facilities TRANSMISSION SUPERVISOR HYDROCODONE Drug allergy (disorder) active 0 [facility] Latex Drug allergy Active One or More [facility] Facilities TRANSMISSION SUPERVISOR LATEX GLOVE Propensity to adverse reactions to drug (finding) active 0 [facility] VICODIN Propensity to adverse reactions to drug (finding) active 0 [facility] Immunizations Combined list of available immunizations from the Department of Defense and Veterans Affairs facilities. Immunization Series Date Given Administered By Site Reaction Lot Number CVX Code Drug Line Service Attendant Status Comments Source COVID-19, mRNA, LNP-S, PF, 30 mcg/0.3 mL dose 2020 [place], Pfizer ReadyPulse [place] (PFR) Not Given COVID-19, mRNA, LNP-S, PF, 30 mcg/0.3 mL dose [facility] COVID-19, mRNA, LNP-S, PF, 30 mcg/0.3 mL dose 2020 [place], Pfizer ReadyPulse [place] (PFR) Not Given COVID-19, mRNA, LNP-S, PF, 30 mcg/0.3 mL dose [facility] COVID-19, mRNA, LNP-S, PF, 30 mcg/0.3 mL dose 2020 GL[place]AK, Pfizer ReadyPulse [place] (PFR) Not Given COVID-19, mRNA, LNP-S, PF, 30 mcg/0.3 mL dose [facility] Vital Signs Combined list of inpatient and outpatient Vital Signs from Department of Defense and Veterans Affairs, ranging from 12 months to all on record, depending upon the facility. Vital Sign Value Date Comments Source Systolic Blood Pressure 132 mm[Hg] 02/04/20 20:15:44 One or More [facility] Facilities TRANSMISSION SUPERVISOR Diastolic Blood Pressure 78 mm[Hg] 02/04/2020 20:15:44 One or More [facility] Facilities TRANSMISSION SUPERVISOR Procedures Combined list of: 1) Procedures from Department of Veterans Affairs facilities going back up to thelast 18 months, not all [place] non-surgical procedures are included; 2) All procedures from the Department of [facility] facilities. Procedure Procedure Type Code Date [...] Plan No data available for this section 08/25/2024 Ambulatory Pharmacy Functional Status Combined list of recent functional and cognitive assessments recorded at [facility] and [facility] [place] Functional [place]imer Measurement (FIM) Scale: 1 = Total Assistance (Subject = 0% +), 2 = Maximal Assistance (Subject = 25% +), 3 = Moderate Assistance (Subject = 50% +), 4 = Minimal Assistance (Subject = 75% +), 5 = Supervision, 6 = Modified Latimer (Device), 7 = Complete Latimer (Timely, Safely). Assessment Date/Time Source Assessment Type Assessment Skill Assessment Score Assessment Details No data available for this section
== END 2024-08-25 13:30 | disposition home or self-care (01) ==
LOC: HO.HOP 12:46
PROVIDERS: PCP Internal Medicine; Visit Provider Clinical Nurse Specialist Psychiatric/Mental Health
DX: F90.2 Attention-deficit hyperactivity disorder, combined type (principal); F41.1 Generalized anxiety disorder; F33.1 Major depressive disorder, recurrent, moderate
CPT/HCPCS: 99214

== ENCOUNTER → 2024-08-25 12:46 | Outpatient (BNVA) | payer OTHER, SELFPAY | PROVIDERS: PCP Internal Medicine; Visit Provider Clinical Nurse Specialist Psychiatric/Mental Health | DX: F90.2 Attention-deficit hyperactivity disorder, combined type (principal); F41.1 Generalized anxiety disorder; F33.1 Major depressive disorder, recurrent, moderate | CPT/HCPCS: 99212 ==

== ENCOUNTER 2024-09-03 | Outpatient (REF) | payer OTHER, SELFPAY ==
--- OUTSIDE RECORDS SUMMARY | 2024-10-20 06:53 | XMS_ITS | Continuity of Care Document ---
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 Medication Details Route Status Patient Instructions Prescription Expires Prescription Number Last Dispense Date Ordering Provider Order Date Order Qty Source DIAZEPAM (DIAZEPAM), 5MG, TABLET, ORAL, IVAX PHARMACEUT, 100 ea. BOTTLE Active [id number] 2023 10 Pharmac y Data Transac tion Service Facilit y LIDOCAINE (lidocaine) , 5 %, ADH. PATCH, TOPICAL, AMNEAL PHARMACE, 30 ea. BOX Active [id number] 2023 30 Pharmac y Data Transac tion Service Facilit y LISINOPRIL- HCTZ (LISINOPRIL /HYDROCHLOR OTHIAZIDE), 10-12.5MG, TABLET, ORAL, LUPIN PHARMACEU, 100 ea. BOTTLE Active [id number] 2023 30 Pharmac y Data Transac tion Service Facilit y LISINOPRIL- HCTZ (LISINOPRIL /HYDROCHLOR OTHIAZIDE), 10-12.5MG, TABLET, ORAL, LUPIN PHARMACEU, 100 ea. BOTTLE Active [id number] 2023 30 Pharmac y Data Transac tion Service Facilit y Allergies, Adverse Reactions, Alerts Combined list of allergies from Department of Defense and Veterans Affairs facilities. It does not include entries that were removed or entered in error. Substance Category Reaction Severity Reaction type Status Date Reported Comments Source ADHESIVES Propensity to adverse reaction (finding) active 0 [facility] HYDROCODONE Drug allergy (disorder) active 0 [facility] LATEX GLOVE Propensity to adverse reactions to drug (finding) active 0 [facility] VICODIN Propensity to adverse reactions to drug (finding) active 0 [facility] Immunizations Combined list of available immunizations from the Department of Defense and Veterans Affairs facilities. Immunization Series Date Given Administered By Site Reaction Lot Number CVX Code Drug Manager Action Status Comments Source COVID-19, mRNA, LNP-S, PF, 30 mcg/0.3 mL dose 2020 [employer] [place] (PFR) Not Given COVID-19, mRNA, LNP-S, PF, 30 mcg/0.3 mL dose DoD COVID-19, mRNA, LNP-S, PF, 30 mcg/0.3 mL dose 2020 [place]USH[place], [employer] [place] (PFR) Not Given COVID-19, mRNA, LNP-S, PF, 30 mcg/0.3 mL dose DoD COVID-19, mRNA, LNP-S, PF, 30 mcg/0.3 mL dose 2020 [employer] [place] (PFR) Not Given COVID-19, mRNA, LNP-S, PF, 30 mcg/0.3 mL dose DoD Social History Combined list of available smoking, tobacco, and other social history from Department of Defense and Veterans Affairs facilities. Social History Type Response Date Comment Sour e This section is an empty social history section. [facility]
--- OUTSIDE RECORDS SUMMARY | 2024-10-20 06:55 | XMS_ITS | Data Portability ---
Author Organization [place] [facility], [place] - [facility] - Address [address] [place] [address] Care Team Providers Care Early Childhood Name Role Phone ROBIN PENALOZANN Primary Care [...] 6-8 weeks. This visit was conducted via tele[employer] website [employer] using both audio and video during the 2019 COVID-19 pandemic. Patient consented to non face to face service. Patient location: car Provider location: [facility] Start time: 1416 End time: 1423 Participants in visit: pt, resident physician, Dr. [...] This visit was conducted via telehealth website [employer] using both audio and video during the 2020. Patient consented to non face to face service. Patient location: home Provider location: [facility] Start time: 1424 End time: [...] This visit was conducted via telehealth website [employer] using both audio and video during the 2019. Patient consented to non face to face service. Patient location: home Provider location: [facility] Start time: 1352 End time: [...] mg capsule,del ayed release 2021 022 [facility], [address], [place], [address], 15:13:01 duloxetine 60 mg capsule,del ayed release 2021 022 [facility], [address], [place], [address], 15:12:56 hydroxyzine HCl 50 mg tablet 2021 022 [facility], [address], [place], [address], 15:12:57 hydroxyzine HCl 50 mg tablet 2020 021 [facility], [address], [place], [address], 15:27:21 duloxetine 30 mg capsule,del ayed release 2020 021 [facility], [address], [place], [address], 15:27:17 duloxetine 60 mg capsule,del ayed release 2020 021 [facility], [address], [place], [address], 15:27:17 Patient TargetsNo targets recorded. Patient InstructionsNo instructions recorded. Reason for Referral None Reported. Problems Name Problem SNOMED Code Status Onset Date Resolution Date Notes Provider Name and Address Organization Details Recorded Time Multiple environm ental allergie s Active scotty sepulveda [facility] 6 12:23:04 Irritabl e bowel syndrome 10089319 Active celiac disease Ab testing Neg 11/03; improved w/ Gluten free diet scotty sepulveda [facility] 6 12:23:04 Gastroes ophageal reflux disease 486372323 Active scotty sepulveda [facility] 6 12:23:04 Mixed anxiety and depressi ve disorder 266182473 Active hx of post depressi on and took lexapro but felt poor response , wellbutr in was very neg side effects (bad vivid dreams of her hurting her family); zoloft was very good response but had to stop when breast feeding bad w/d (didn't wean) scotty sepulveda [facility] 6 12:23:03 Migraine 11233075 [facility] Hiatal hernia 07242077 [facility] 12:23:04 Hemorrho ids 03839660 Completed 12/11/2018 tx'd w/ anusol-H Timbo Loza DO [address], [place], [address] , [facility] 9 17:20:55 Female stress incontin ence 24473555 [facility] 7 18:34:40 Pyelonep hritis 74895590 Completed 201412/11/2018 tx'd w/ Levaquin Timbo Mckeon DO [address], [place], [address] , [facility] 9 17:19:51 Insomnia 140523820 [facility] 6 12:23:03 Fracture of hand 89215341 Completed 200912/11/2018 Left Timbo Mckeon DO [address], [place], [address] , [place] [facility] 9 17:20:04 Tinnitus 36669056 [facility] 6 12:23:04 Decrease d hearing 649154820 Completed 12/11/2018 Timbo Mckeon DO [address], [place], [address] , [facility] 9 17:19:28 Reduced visual acuity 35066293 Active scotty banda null, [place] [facility] 6 12:23:04 Sensorin eural hearing loss of bilatera l ears 024785770 Active Asha Bradford [address], [place], [address] , [place] [facility] 6 13:11:25 Menorrha obi 664161522 Active Margy Becker MD [address], [place], [address] , [place] [facility] 7 22:56:04 Blood in urine 78248192 Completed 12/11/2018 Timbo Mckeon DO [address], [place], [address] , [place] [facility] 9 17:19:34 Obesity 056066691 Active 2018 Timbo Mckeon DO [address], [place], [address] , [place] [facility] 9 01:18:28 Pregnanc y 43368571 Completed 201903/16/2020 Aliyah sepulveda, [place] [facility] 0 12:25:25 Gestatio nal diabetes mellitus class A2 66888921 Active 2019 Aliyah Julian null, [place] [facility] 0 12:25:22 Gestatio nal diabetes mellitus class A2 26921446 Completed 2019 Aliyahjanet Julian null, [place] [facility] 0 12:25:22 Depressi ve disorder 70571428 Active 2020 Yaya Casanova DO [address], [place], [address] , [place] [facility] 1 15:54:10 Notes:hx plantar fasciitis; [...] Non-Stress Test completed Malka VANEGAS, Cali Carter [address], [place], [address], [facility] 02/25/2020 13:33:54 02/18/20 20 Non-Stress Test completed Malka VANEGAS, Cali Carter [facility] [address], [place], [address], [facility] 02/18/2020 15:49:47 02/11/20 20 Non-Stress Test completed Malka VANEGAS, Cali Carter [facility] [address], [place], [address], [facility] 02/11/2020 15:03:18 01/12/20 20 Non-Stress Test completed Malka VANEGAS, Cali Carter [address] [facility],[address], [place], [address], [place] [facility] 01/12/2020 18:21:04 12/19/19 19 Date of Last Pap Smear completed Timbo Mckeon DO [address] [facility],[address], [place], [address], [facility] 12/24/2018 14:45:47 06/30/19 17 Ortho Corticosteroid Injection completed Vy Feliciano [facility] 06/29/2016 12:26:26 06/29/19 17 Cystoscopy (female) completed Chuck VANEGAS, [address], [place], [address], [place] [facility] 06/28/2016 12:41:47 06/14/19 17 Bladder Scan completed Chuck VANEGAS, [facility] [address], [place], [address], [facility] 06/14/2016 13:22:58 04/05/20 16 Tympanometry completed Asha Bradford [address], [place], [address], [facility] 04/05/2016 13:11:04 04/05/20 16 Audiogram.old completed Asha Bradford [address], [place], [address], [facility] 04/05/2016 13:11:04 11/21/19 15 Other completed Georgi Moctezuma MD [address], [place], [address], [facility] 01/13/2016 00:18:30 10/21/19 15 Other completed Georgi Moctezuma MD [address], [place], [address], [facility] 01/13/2016 00:18:30 04/22/19 00 [place] Teeth Removed completed Georgi Moctezuma MD [address], [place], [address], [facility] 01/12/2016 22:50:32 Oral surgery procedure completed Dena Argueta [facility] 04/06/2016 12:36:17 Imaging Results None recorded. Procedure Notes None recorded. Medical Equipment None Reported. Allergies Allergen ID Allergen Name Allergen Category Reaction Reaction Severity Criticality Documentation Date Start Date Code Code System Note Provider Name and Address Organization Details Recorded Time 924054 latex environme nt,medica tion hives moderate Not available 01/12/2016 46216 91 RxNorm Georgi Moctezuma MD [address], [place], [address], [facility] 22:23:54 966388 acetamino phen / hydrocodo ne medicatio n other moderate Not available 04/05/2016 09045 2 RxNorm facia l numbn ess scotty banda null, [facility] 6 12:23:03 443453 Wellbutri n medicatio n Not available Not available Not available 06/18/2016 40793 RxNorm vivid dream s/fri ghten ing ; used w/ post partu m alivia Moctezuma MD, Georgi Costa [address], [facility] [place], [address], [facility] 7 11:10:40 546084 adhesive tape environme nt,medica tion Not available Not available Not available 03/16/2020 48313 UNK Aliyah sepulveda, [facility] 0 12:21:24 Medications Name Sig [...] e 137 mcg (0.1 %) nasal spray [place] 1 spray every day by intranas al [...] e Mini Pen Needle 31 gauge x 16 03/16 completed Not Available Not Available Not [...] Not Available Not Available Not Available FreeStyle [place] Lite kit 03/16 completed Not Available Not [...] Smoking Status Never Smoker 12/11/18 Kathy Guallpa [facility], [facility] 12/11/2018 16:59:59 Do You Have An Advance Directive? No I Gave Her The Form For The Living Will And Health Power Of Salicylic Acid Blender, She Does Want To Be Resuscitated. She [...] COVID-19 While That Case Was Ill? No [email or web address] Information not available 07/30/2019 In The 14 Days Before Symptom Onset, Have You Had Close Contact With A Person Who Is Under Investigation For COVID-19 While That Person Was Ill? No [email or web address] Information not available 07/30/2019 Have You Been To An Area Known To Be High Risk For COVID-19? No [email or web address] Information not available 07/30/2019 What Type Of [...] not available 04/06/2016 Do You Have Any Moravian Beliefs That May Impact Your Health Care Decisions? No Does Not Follow Any Latter-Day Information not available 12/11/2018 Did You Hurt Yourself When You Fell In The Last Year? No 12/11/18 Information not available 04/06/2016 Education: 12 Information [...] is your level of alcohol consumption? None [email or web address] Information not available 10/27/2019 Do you or have you ever used smokeless tobacco? 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 [employer] [email or web address] Information not available 09/15/2020 Do you or [...] Details LastModified Time Father Myocardial infarction 55 [email or web address] Not available 04/25 18:44:02 Father Hypertensive disorder [email or web address] Not available 2016 18:44:02 Father Hyperlipidem ia [email or web address] Not available 2016 18:44:02 Paternal Aunt Malignant tumor of cervix [email or web address] Not available 2016 18:44:02 Paternal Aunt Dementia [email or web address] Not a vailable 04/25/2016 18:44:02 Mother Pyelonephrit [...] quadrivalent , PF 1 completed Maile sepulveda [facility] 03/15/2021 12:10:26 COVID-19, mRNA, LNP-S, PF, 30 mcg/0.3 mL dose 1 completed Savana sepulveda [facility] 08/30/2020 10:45:30 COVID-19, mRNA, LNP-S, PF, 30 mcg/0.3 mL dose 1 completed Savana sepulveda [facility] 08/30/2020 10:45:45 COVID-19, mRNA, LNP-S, PF, 30 mcg/0.3 mL dose 1 completed Maile sepulveda [facility] 03/15/2021 11:48:03 Influenza, split virus, trivalent, PF 8 cancelled patient objection Not Available [facility] 05/09/2019 02:33:30 Influenza, MDCK, quadrivalent , PF 8 completed Not Available [facility] 05/09/2019 03:23:32 Influenza, MDCK, quadrivalent , PF 9 completed Not Available [facility] 05/09/2019 03:01:50 Influenza, split virus, quadrivalent , PF 0 completed Savana sepulveda [facility] 01/05/2020 16:31:36 Tdap 3 completed Not Available [facility] 03/07/2020 09:20:47 Past Encounters Encounter ID Performer Location Encounter Start Date Encounter Closed Date Diagnosis/Indication Diagnosis SNOMED-CT Code Diagnosis ICD10 Code Diagnosis Note [id number] Rhianna VANEGAS, Georgi Costa [facility] [address] [place] [address] 01/12/2016 10:23:10 01/13/2016 12:09:34 Adult health examination 656906798 Z00.00 Hematology screening test 916097657 Z13.0 Hyperlipid emia screening 970610504 Z13.220 Endocrine/ metabolic screening 355800945 Z13.228 Mixed anxi ety and depressive disorder 071744898 F41.8 Tinnitus 57983216 H93.13 Decreased hearing 170449 001 H91.93 Reduced visual acuity 13 322147 H54.7 Contraception care 22108 5005 Z30.40 [id number] Lv lucas MD, Chandrakant Shipley [facility] [address] [facility] [address] [place] [address] 04/05/2016 11:57:03 04/05/2016 13:17:18 Tinnitus 75007895 H93.13 At this time the patient has bilateral tinnitus, most likely due to her bilateral hearing loss. Please see plan as described above. FG Allergic r hinitis caused by pollen 17823877 J30.1 At this time the patient has [...] Sensorineu ral hearing loss of bilateral ears 640111894 H90.3 At this time the patient comes [...] if she wishes to move forward with demjean. She had no further questions for now. She will follow up as needed. FG Dizziness 244913700 R42 At this time the patient also complains of an off balance feeling with walking up and down stairs, but does not have any other problems. We will see if this improves on nasal steroid spray. She had no further questions and will follow up as needed for now. FG [id number] Asha Bradford [facility] [address] [place] [address] 04/05/2016 13:09:55 04/05/2016 13:12:09 Sensorineural hearing loss of bilateral ears 843869261 H90.3 [id number] Eugenio VANEGAS, Margy Valdivia [facility] [place] [address] [place] [address],[address] [facility] [address] 04/06/2016 12:09:16 04/06/2016 13:47:10 Gynecologic examination 34693266 Z01.419 Screening for malignant neoplasm of cervix 611768465 Z12.4 Menorrhagia 087612125 N9 2.0 History of urinary tract infection 0741058622 107 Z87.440 Surveillan ce of contraception 611000485 Z30.40 [id number] Eugenio VANEGAS, Margy Valdivia [facility] [place] [address] [place] [address],[address] [place] [address] 04/25/2016 17:48:13 04/25/2016 19:53:53 Menorrhagia 654034887 N92.0 Blood in urine 11913561 R31.9 [id number] Rhianna VANEGAS, Georgi Costa [facility] [place] POS [address],[facility] [place] [address] 05/08/2016 10:01:31 05/08/2016 12:08:23 Migraine 08988804 G43.909 Mixed anxi ety and depressive disorder 725110858 F41.8 Carpal davonte simon syndrome 51141284 G56.00 Insomnia 060090300 G47.0 0 Hand pain 44070892 M79.6 42 Vitamin D deficiency 347 14163 E55.9 [id number] Chuck VANEGAS, 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 - UROLOGY [facility] POS [address] [place] [address] 06/28/2016 12:09:59 06/28/2016 12:45:15 Blood in urine 49188586 R31.9 her cystoscopy shows mild chronic bullous cystitis and a diverticul um, mild grade 1 trabeculat ions-will start on suppressiv e dose macrodanti n for one monthfollo w up in 3mos [id number] Donnell VANEGAS, Luis Soliz [facility] - ORTHOPEDI CSURGERY [facility] POS [address] [place] [address] 06/29/2016 11:24:40 07/13/2016 10:46:48 Hand pain 64474129 M79.643 Carpal davonte simno syndrome 77700459 G56.01 G56.02 [id number] oDnnell VANEGAS, Luis Soliz [facility] [place] POS [address] [facility] [address] 07/13/2016 11:07:42 07/13/2016 13:24:50 Pain of wrist region 65921494 M25.531 Hand pain 16450845 M79.6 43 Carpal davonte simon syndrome 99808996 G56.01 G56.02 [id number] Rhianna VANEGAS, Georgi Costa [facility] [place] [facility] POS [address],[place] [address] 07/16/2016 10:58:41 07/16/2016 11:42:57 Mixed anxiety and depressive disorder 124811543 F41.8 [id number] Donnell VANEGAS, Luis Reynaoli [facility] [place] [address] [place] [address] 08/13/2016 11:24:07 08/13/2016 12:23:07 Hand pain 31628190 M79.641 Pain of wrist region 566 85359 M25.531 Carpal davonte simon syndrome 00343268 G56.01 G56.02 [id number] Donnell VANEGAS, Luis Reynaoli [facility] [place] [address] [place] [address] 09/20/2016 11:45:56 09/20/2016 14:44:21 Pain of wrist region 80539260 M25.531 M25.532 Hand pain 10093733 M79.6 41 Carpal davonte simon syndrome 00308215 G56.01 G56.02 [id number] Chuck VAENGAS, [facility] [place] POS [address] [facility] [address] 10/04/2016 11:54:33 10/04/2016 12:31:12 Blood in urine 36779690 R31.9 she had history of microhemat uriawas given 3mos of suppressiv e dose abxhas not seen any blood in urinewill check ua/culture Bladder mu scle dysfunction - overactive 979720838 N32.81 she goes to bathroom every 2 hours during day and 2 times at night, occ urge incontinen cetrial of myrbetriq Female str ess incontinence 89388551 N39.3 -she does not require pads for the problemonl y occurs occasional ly with sneezingdi scussed treatment options- e will observe for now [id number] Donnell VANEGAS, Luis Soliz [facility] [place] POS [address] [facility],[address] [place] [address] 10/08/2016 09:47:26 10/08/2016 10:46:23 Pain of wrist region 27719616 M25.531 M25.532 Hand pain 45232947 M79.6 41 Carpal davonte simon syndrome 43042981 G56.01 G56.02 [id number] Donnell VANEGAS, Luis Soliz [facility] [address] [facility],[address] [place] [address] 11/09/2016 10:50:45 11/09/2016 12:33:48 Pain of wrist region 67883772 M25.531 M25.532 Neck pain 00793928 M54.2 Hand pain 89110335 M79.6 41 Carpal davonte simon syndrome 55216633 G56.01 G56.02 [id number] Rhianna VANEGAS, Georgi [facility] [address],[place] [address] 11/21/2016 10:22:19 12/11/2016 16:16:59 Low back pain 584923882 M54.5 Snoring 79524658 R06.83 [id number] Rhianna VANEGAS, Georgi [facility] [address],[place] [address] 01/10/2017 16:20:44 01/10/2017 17:19:55 Pain in left knee 8005048146 99953 M25.562 Depressive disorder 3548 9007 F32.89 Fatigue 13563255 R53.83 [id number] Chuck VANEGAS, [facility] - UROLOGY [facility] [address] [place] [address] 01/31/2017 11:27:16 01/31/2017 12:47:19 Bladder muscle dysfunction - overactive 019884260 N32.81 she goes to bathroom every 2 hours during day and 2 times at night, occ urge incontinen cemyrbetri q didn't help and wasn't covered Female str ess incontinence 54932608 N39.3 she is more bothered by it latelywoul d like to try physical therapyref [facility] [id number] Tete Brian DO [facility] Maddie [facility] AM#1 [address] [place] [address] 03/08/2017 11:55:53 03/13/2017 00:11:33 Fatigue 59739428 R53.83 --concerns for fatigue and insomnia. Have discussed sleep hygeine techniques with patient and reviewed the sleep study with her. Discussed weight loss and controllin g nasal congestion .--Pt will attempt these and follow up in the next 3 months. Allergic rhinitis 362372 04 J30.9 --nasal congestion Obesity 123565866 E66.9 --discusse d keeping track of her calories and aiming to eat about 500 calories less then what she normally eats.--Pt should f/u in 3 months on weight loss. [id number] Tete Brian DO AM#1 [address] [place] [address] 06/12/2017 10:00:03 06/12/2017 10:41:36 Active or passive immunization 528978051 Z23 Fatigue 58346431 R53.83 --cont use of breathe right strips and use nasal steroid. Allergic rhinitis 699955 04 J30.9 --nasal congestion continued. Increase cetirizine to 10 mg daily, but go back to 5 mg if she feels overly fatigued. Cont fluticason e and also start azelastine daily. Gastroesop hageal reflux disease 475132971 K21.9 [id number] Tete Brian DO [facility] AM#1 [address] [place] [address] 08/12/2017 10:54:36 08/12/2017 11:48:10 Obesity 617795781 E66.9 --discusse d weight loss and diet again Insomnia 908855444 G47.0 0 --pt instructed to take amitriptyl ine daily.--Co unselled on possible side effects. RTC if insomnia worsens Neck pain 22258883 M54.2 --negative adsons test, negative spurling sign. Muscle spasm in b/l neck.--Giv en exercises for neck. OTC tylenol and ibuprofen. RTC as needed. Migraine 03200891 G43.90 9 [id number] Tete Brian DO [facility] AM#1 [address] [place] [address] 02/11/2018 10:03:22 02/11/2018 10:50:04 Administration of influenza vaccine 75675441 Z23 Migraine 18999737 G43.90 9 --fioricet , amitriptyl ine and topiramate Insomnia 597936797 G47.0 0 --pt instructed to take amitriptyl ine daily.--Co unselled on possible side effects. RTC if insomnia worsens Environmental allergy 42 3537136 T78.49XA [id number] Nitin Laguerre MD [facility] AM#1 [address] [place] [address] 04/02/2018 14:24:14 04/02/2018 15:10:58 Adult health examination 988164149 Z00.00 Migraine 33787038 G43.90 9 [id number] Timbo Mckeon DO [facility]#1 [address] [facility] [place] [address] 12/11/2018 16:42:55 12/11/2018 17:56:44 Bladder muscle dysfunction - overactive 823196267 N32.81 she has urinary incontinen ce and requesting a refill of the detrol, this has helped her in the past Body mass index 30+ - obesity 455932331 Z68.39 The patient's current weight is 209# with a height of 5' 1.25 and a correspond ing BMI (Body Mass Index) of 39.2. The medical definition of Obesity is a BMI greater than 30. Your [place] Body Weight is approximat malinda about 116#. [...] migraine prophylaxi s and weight loss. Migraine 31947511 G43.90 9 see the above plan [id number] Timbo Mckeon DO [facility]#1 [address] [facility] [place] [address] 12/18/2018 09:57:19 12/18/2018 11:37:10 Adult health examination 011000134 Z00.00 Female Complete Physical Exam: I discussed [...] exercise, diet. Achieve/ma intain ideal body weight. [place] body weight is about 116 pounds,Adv anced directives : I gave the patient the form for LIVING WILL and health power of trust and estates attorney from the [place] [employer], the patient does want to be resuscitat ed but the patient does not want to be maintained on chronic life support if there is little hope of meaningful recovery. Active or passive immunization 492070008 Z23 Flu vaccine today, She is up to date with the Tdap Body mass index 30+ - obesity 499487106 Z68.38 The patient's current weight is 206.75# with a height of 5' 1.25 and a correspond ing BMI (Body Mass Index) of 38.7. The medical definition of Obesity is a BMI greater than 30. Your [place] Body Weight is approximat malinda about 116#. A reduced calorie, reduced carbohydra te weight reduction diet as well as increased activity.. She has lost about 3# since the last visit Hyperhidro sis of axilla 441770226 L74.510 Drysol Jessie.ly to axilla once daily at first and then about three times per week, do not apply to fresh shaven skin. Elevated blood-pressure reading without diagnosis of hypertension 562175083 R03.0 I encouraged the patient to check the blood pressure and log the results. Please follow a reduced sodium diet and maintain/a chieve ideal body weight. [id number] Malka VANEGAS, Cali Carter [facility] [place] POS [address] [place] [address] 07/30/2019 10:48:16 07/30/2019 12:44:41 test positive 105870094 Z32.01 Mild hyper emesis gravidarum 87791506 O21.0 Reviewed and hyperemesi s with patient. Reviewed diet at length. Questions answered. Recommend consider hold PNV. Start vitamin B6, unisom. Ob dating u/s in 1 week. f/u 1wk. Amenorrhea 75111699 N91. 2 Reviewed findings, positive test. [id number] Malka VANEGAS, Cali Carter [facility] [place] [address] [place] [address] 08/04/2019 11:31:16 08/04/2019 13:34:46 Disorder of menstruation 612920979 N92.6 Ob u/s reviewed, show viable iup consistent with LMP dating. Reviewed with patient. Routine an tenatal care 878750936 Z34.81 Z3A.08 Venereal d isease screening 848141393 Z11.3 Advanced m aternal age 373250181 O09.899 [id number] Malka VANEGAS, [facility] - [facility] [place] POS [address] [place] [address] 7 08/18/2019 11:25:44 08/18/2019 13:21:34 Advanced maternal age 635101549 O09.899 Routine an tenatal care 011332739 Z34.81 Z3A.08 Mild hyper emesis gravidarum 06866978 O21.0 mostly resolved [id number] Malka VANEGAS, [facility] [place] POS [address] [place] [address] 7 09/22/2019 13:57:14 09/22/2019 14:40:34 Multigravida of advanced maternal age 579984939 O09.522 Z3A.15 [id number] Malka VANEGAS, [facility] [address] [place] [id number] 7 10/20/2019 13:50:29 10/20/2019 15:17:10 Multigravida of advanced maternal age 924653815 O09.523 Z3A.19 [id number] Primitivo VANEGAS, Dickson [facility] POS [address] [place] [address] 10/27/2019 10:57:43 10/27/2019 14:41:15 Advanced maternal age 690776073 O09.899 expo sure to alcohol 479513284 O35.4XX9 expo sure to drug 957100298 O35.5XX9 Tolterodin e exposure [id number] Malka VANEGAS, Cali [facility] - [facility] [place] POS [address] [place] [id number] 7 11/24/2019 14:02:44 11/24/2019 15:47:27 Advanced maternal age 859238684 O09.899 Z3A.24 [id number] Malka VANEGAS, [facility] [place] POS [address] [place] [id number] 7 12/08/2019 13:27:12 12/08/2019 15:22:20 Gestational diabetes mellitus 63810720 O24.410 [id number] Erick VANEGAS, Thee Núñez [facility] [address] [place] [address] 12/17/2019 17:23:54 12/17/2019 17:24:51 [id number] Primitivo VANEGAS, Dickson [facility] [place] [facility] POS [address] [place] [address] 12/22/2019 08:47:44 12/22/2019 11:38:14 Glucose tolerance test outside reference range 138879397 R73.09 Gestationa l diabetes mellitus 94654615 O24.410 [id number] Malka VANEGAS, Cali Carter [facility] [place] POS [address] [place] [id number] 7 12/22/2019 15:50:31 12/23/2019 10:14:48 Gestational diabetes mellitus 57648655 O24.410 Advanced m aternal age 595938827 O09.899 Z3A.24 High risk care 830014116 O09.93 [id number] Malka VANEGAS, Cali Carter [facility] [place] [address] [place] [address] 01/05/2020 15:26:25 01/06/2020 12:30:32 Advanced maternal age 549802077 O09.899 Z3A.24 Gestationa l diabetes mellitus 97731407 O24.410 High risk care 210801766 O09.93 [id number] Erick VANEGAS, Thee Núñez [facility] POS [address] [place] [address] 01/08/2020 14:24:24 01/08/2020 15:19:50 [id number] Malka VANEGAS, Cali aCrter [facility] [place] POS [address] [place] [id number] 7 01/12/2020 16:46:10 01/13/2020 11:56:27 Gestational diabetes mellitus 92921070 O24.410 Advanced m aternal age 486884995 O09.899 O09.893 [id number] Dickson Langford MD [facility] POS [address] [place] [address] 5 01/19/2020 14:10:41 01/19/2020 16:23:42 Gestational diabetes mellitus 57263169 O24.410 On Insulin Gestationa l diabetes mellitus class A2 96367238 O24.414 [id number] Malka VANEGAS, Cali Carter [facility] [place] [address] [place] [id number] 7 01/20/2020 12:35:55 01/20/2020 14:26:45 Multigravida of advanced maternal age 623751358 O09.523 Z3A.33 [id number] Milly Solorzano MD [facility] POS [address] [place] [address] 5 01/26/2020 14:26:55 01/26/2020 16:06:59 Gestational diabetes mellitus 02800944 O24.414 [id number] Jimmy VANEGAS, Madi Stevens [facility] [place] [facility] [address] [place] [id number] 7 01/30/2020 10:58:36 01/30/2020 11:58:25 Routine care 492027430 Z34.83 Gestationa l diabetes mellitus class A2 77971411 O24.414 [id number] Dickson Langford MD [facility] POS [address] [place] [address] 5 02/02/2020 14:26:03 02/02/2020 17:02:34 Advanced maternal age 894954793 O09.899 Gestationa l diabetes mellitus 76605659 O24.410 On Insulin [id number] Milly Solorzano MD [facility] POS [address] [place] [id number] 5 02/09/2020 14:24:13 02/09/2020 16:17:05 Advanced maternal age 199156882 O09.523 Gestationa l diabetes mellitus class A2 69067156 O24.414 [id number] Malka VANEGAS, Cali Caretr [facility] [place] POS [address] [place] [id number] 7 02/11/2020 12:30:53 02/11/2020 16:21:25 Advanced maternal age 295431186 O09.523 Z3A.36 Venereal d isease screening 990118169 Z11.3 Gestationa l diabetes mellitus 40126139 O24.410 [id number] Primitivo VANEGAS, Dickson [facility] POS [address] [place] [address] 5 02/16/2020 14:33:12 02/16/2020 16:13:30 Gestational diabetes mellitus 04965999 O24.410 On Insulin [id number] Malka VANEGAS, [facility] [place] [facility] [address] [place] [id number] 7 02/18/2020 14:57:15 02/18/2020 15:58:43 Routine care 063780573 Z34.81 Z3A.08 Advanced m aternal age 868810991 O09.523 Z3A.36 Gestationa l diabetes mellitus 08048816 O24.410 [id number] Milly Solorzano MD [facility] POS [address] [place] [address] 5 02/23/2020 14:31:39 02/23/2020 16:18:32 Gestational diabetes mellitus 57992829 O24.414 [id number] Malka VANEGAS, [facility] [place] [facility] [address] [place] [address] 0[address]36[address] 7 02/25/2020 12:31:57 02/26/2020 10:45:52 Routine care 939480309 Z34.83 Z3A.38 Advanced m aternal age 204315274 O09.523 Z3A.36 Gestationa l diabetes mellitus 03614076 O24.410 [id number] Dickson Langford MD [facility] [place] [employer] POS [address] [place] [address] 6[address]30[address] 5 03/01/2020 14:27:44 03/01/2020 15:58:06 Advanced maternal age 233419578 O09.523 O24.414 [id number] Malka VANEGAS, [facility] [place] [facility] [address] [place] [address] 46204[address]446 7 03/16/2020 12:11:09 03/18/2020 11:31:10 care 691972699 Z39.0 Patient doing well. f/u 4wk. [id number] Malka VANEGAS, Cali Carter [facility] [place] [facility] [address] [place] [id number] 7 04/13/2020 10:55:06 04/13/2020 14:58:26 care 919476073 Z39.2 Patient doing well. f/u 6mo annual exam [id number] Malka VANEGAS, Cali Carter [facility] [place] [facility] [address] [place] [address] [phone] 7 04/27/2020 16:26:42 05/04/2020 15:07:19 depression 23768488 F53.0 Patient presents with c/o feeling down [...] unable to schedule behavoral health appointmen t. [id number] Sejal Downing [facility] POS [address] [place] [address] 71507-[address] 7 05/13/2020 09:46:35 05/13/2020 10:31:08 [id number] SalinaSejal main [facility] POS [address] [place] [address] [id number] 7 05/20/2020 09:48:07 05/20/2020 10:32:23 [id number] Malka VANEGAS, Cali Carter [facility] [place] POS [address] [place] [address] [phone] 7 05/25/2020 11:11:20 05/25/2020 12:13:25 depression 53109887 F53.0 Patient presents f/u depression . Started [...] Sejal on 05/27 and will discuss referral. [id number] SalinaSejal main [facility] - [facility]AVIOR[facility] POS [address] [place] [address] [phone] 7 05/27/2020 09:48:13 05/27/2020 10:30:45 [id number] Sejal Downing [facility] - [facility] POS [address] [place] [address] 7 06/03/2020 09:50:44 06/03/2020 10:30:22 [id number] Malka VANEGAS, Cali Carter [facility] [place] POS [address] [place] [address] [id number] 7 06/09/2020 10:32:07 06/09/2020 12:01:09 depression 51806896 F53.0 Patient presents f/u depression . Has been following up with [facility], has appointmen t 06/10. Referred to Psychiatry , trying to find provider in insurance. Currently on Zoloft 50 states helping a little. Side effects mostly resolved now. Will increase Zoloft to 100 mg. Reviewed with patient. Reviewed possible side effects. Denies feeling of harm to baby, self or others. [id number] Salina Sejal [facility] - [facility] POS [address] [place] [address] [phone] 7 06/10/2020 09:49:10 06/10/2020 10:30:56 [id number] Salina Sejal [facility] - [facility] POS [address] [place] [address] [phone] 7 06/17/2020 09:53:23 06/17/2020 10:30:13 [id number] Salina Sejal [facility] - [facility] POS [address] [place] [phone] 7 06/24/2020 09:49:10 06/24/2020 10:30:19 [id number] Salina MANGLE TENDER, Sejal [facility] - [facility] POS [address] [place] [address] [phone] 7 07/01/2020 09:47:28 07/01/2020 10:31:01 [id number] Malka VANEGAS, Cali Carter [facility] [place] [facility] [address] [place] [address] [phone] 7 07/07/2020 09:57:10 07/07/2020 10:53:54 depression 30528936 F53.0 Patient presents f/u depression . Has been following up with [facility].Cur rently on Zoloft 100mg, states starting to feel slight better on medication . State still trying to find psychiatri st in her insurance. Continue current Zoloft 100mg. [facility] f/u 1mo. [id number] Salina MANGLE TENDER, [facility] [address] [place] [address] [phone] 7 07/08/2020 09:49:04 07/08/2020 10:30:36 [id number] Salina MANGLE TENDER, [facility]al [facility] [address] [place] [address] [id number] 7 07/15/2020 09:50:40 07/15/2020 10:32:14 [id number] Salina MANGLE TENDER, Sejal [facility] - [facility]IOR[facility] POS [address] [place] [address] [phone] 7 07/29/2020 09:46:54 07/29/2020 10:29:43 [id number] Malka VANEGAS, Cali Carter [facility] [place] POS [address] [place] [address] [id number] 7 08/04/2020 10:24:52 08/04/2020 11:40:55 depression 99039503 F53.0 Patient presents f/u depression . Currently on Zoloft 100mg, states started initially to feel slight better on medication but currently not much change. [facility] States still trying to find psychiatri st in her insurance. Denies feeling of harm to self, baby or others. Discussed increasing Zoloft to 125 mg. Risk, benefits and possible side effects reviewed. Questions answered. Patient would like to increase Zoloft to 125 mg. Continue f/u with [facility]. f/u 1mo. [id number] Salina [facility], Sejal [facility] - [facility] POS [address] [place] [address] [id number] 7 08/05/2020 09:47:37 08/05/2020 10:30:03 [id number] Salina [facility]HOU, [facility] [address] [place] [address] [phone] 7 08/12/2020 09:47:50 08/12/2020 10:31:38 [id number] Salina ZHOU, [facility] [address] [place] [address] [id number] 7 08/19/2020 09:48:32 08/19/2020 10:32:52 [id number] Salina ZHOU, Sejal [facility] - [facility] POS [address] [place] [address] [phone] 7 08/26/2020 09:50:04 08/26/2020 10:30:03 [id number] Abdifatah VANEGAS, [facility] - [facility] POS [address] [place] [address] 08/30/2020 10:22:15 08/30/2020 12:17:12 Migraine 50340855 G43.909 - Sumatripta n compatible breastfeed ing- Consider starting topamax, will discuss further at psych clinic Insomnia 638751159 G47.0 0 - Discussed good sleep hygiene, meditation , and relaxation techniques - Recommende d CBT-i life coach jessie- Start taking sertraline in the morning- May start melatonin at night, compatible w/ breastfeed ing Mixed anxi ety and depressive disorder 165819964 F41.8 F53.0 - Follow up in psych clinic tomorrow Adult heal th examination 213960170 Z00.01 39 yo F w/ PMH of depression , migraines, anxiety, and gestationa l diabetes presents for annual checkup. -Physical exam notable for obesity.-T dap is up to date. Received COVID vaccines x2. Recommend RTC for flu shot.-Heal thy food, aim for 1 hour of vigorous physical activity every day-Wear seat belt-[place] BID, go to a dentist twice a year-Spoke about risks of tobacco, alcohol, and recreation al drugs-Foll ow up [facility] for psych clinic, in 2 months for weight loss, and 1 year for annual physical Past pregn chilango history of gestational diabetes mellitus 333923766 Z86.32 - Screen for DM Fatigue 63299022 R53.83 - Currently experienci ng significan t fatigue, likely related to PPD and insomnia- Will check labs today Obesity 677744273 E66.9 -BMI 39.2-Discu ssed healthy eating, portion sizes, eliminatin g sugary beverages, limiting screen time, and one hour of vigorous physical activity daily. [id number] Abdifatah VANEGAS, Kandi Costa [facility] - [facility] POS [address] [place] [address] 08/31/2020 08:33:33 08/31/2020 14:44:00 depression 82616015 F53.0 39 yo F w/ PMH of [...] up w/ psych clinic in 3 weeks. [id number] [facility], Sejal [facility] - [facility]AVIOR[facility] POS [address] [place] [address] 09/02/2020 09:48:40 09/02/2020 10:29:27 [id number] Abdifatah VANEGAS, Kandi Costa [facility] POS [address] [place] [address] 09/12/2020 14:15:05 09/12/2020 15:26:54 depression 89999242 F53.0 39 yo F w/ PMH of depression , migraines, anxiety, and gestationa l diabetes presents for depression . - Tapered off zoloft, compliant w/ duloxetine 30mg qDaily- Discussed side effects of medication , including headache or stomach ache.- Medication compatible w/ breastfeed ing.- Consider adjunct Rexulti.- Worsening tinnitus- Follow up w/ psych clinic in 1 week. Bilateral tinnitus 99293 21986 102 H93.13 - Hx of b/l tinnitus since childhood- Worsened w/ antidepres gus- Will refer to ENT Dysfunctio n of bilateral eustachian tubes [id number] 202391 H69.93 - Hx of eustachian tube dysfunctio n- Restart daily flonase and nasal saline rinse [id number] [facility] [address] [place] [address] 09/16/2020 09:49:08 09/16/2020 10:30:24 [id number] Abdifatah VANEGAS, Kandi Costa [facility] - [facility] POS [address] [place] [address] 09/21/2020 09:11:46 09/21/2020 16:46:13 depression 81706408 F53.0 39 yo F w/ PMH of depression , migraines, anxiety, and gestationa l diabetes presents for depression . - Tapered off zoloft, compliant w/ duloxetine 30mg qDaily- Will start Rexulti 0.5mg daily, compatible w/ breastfeed ing.- Discussed side effects of medication , including headache or stomach ache.- Follow up w/ psych clinic in 2 week. Insomnia 331945673 G47.0 0 - Discussed good sleep hygiene, meditation , and relaxation techniques - Recommende d CBT-i life coach jessie- Will start hydroxyzin e at bedtime, compatible w/ breastfeed ing [id number] [facility] [address] [place] [address] 09/23/2020 09:46:29 09/23/2020 10:30:36 [id number] [facility] [address] [place] [address] 09/30/2020 09:48:45 09/30/2020 10:31:06 [id number] Malka VANEGAS, Cali Carter [facility] [place] POS [address] [place] [address] 7 10/01/2020 10:58:39 10/01/2020 12:29:28 Gynecologic examination 20778687 Z01.419 PAP, pelvic. F/u 1 yr prn. [id number] [facility] - [facility]ENC[facility] POS [address] [place] [address] 2020 09:40:56 10/26/2020 16:47:[id number] [facility] - [facility] POS [address] [place] [address] 2020 14:37:04 2020 16:19:39 depression 11181032 F53.0 39 yo F w/ PMH of [...] 25mg BID, on hydroxyzin e 50mg QHS [id number] [facility] - [facility]ENC[facility] POS [address] [place] [address] 10/13/2020 10:50:00 10/13/2020 11:34:19 Mixed anxiety and depressive disorder 623514529 F41.8 39 yo F w/ PMH of [...] weeks or sooner PRN Burn of skin 225266705 T 30.0 1.5 cm x 6 cm [...] fever, chills, discharge. Pt states understand ing [id number] Sejal Downing [facility] POS [address] [place] [address] 77868-071 7 10/28/2020 09:47:58 10/28/2020 10:30:04 [id number] Yaya Casanova DO HOSP - RESIDENCY POS [address] [place] [address] 11/02/2020 09:30:11 11/02/2020 16:24:38 depression 53896572 F53.0 39 yo F w/ PMH of [...] Cymbalta 90mg if unable to start abilify [id number] Sejal Downing [facility] POS [address] [place] [address] 02766-685 7 11/04/2020 09:50:31 11/04/2020 10:30:09 [id number] Sejal Downing [facility] POS [address] [place] [address] 74530-420 7 11/11/2020 09:48:49 11/11/2020 10:30:53 [id number] Charleen Downing LCPCdi [facility] - [facility] POS [address] [place] [address] [phone] 7 11/18/2020 09:49:22 11/18/2020 10:29:35 [id number] Yaya Casanova DO HOSP - RES[facility]ENC[facility] POS [address] [place] [address] 11/30/2020 13:47:39 11/30/2020 15:58:53 Depressive disorder 29385914 F32.9 -Patient unable to take Abilify due to breastfeed ing-Recent thoughts of self harm, has scratched herself to the point of bleeding-R ecently on duloxetine 90mg, started 1-2 weeks ago-Contin ue duloxetine for now, may need to increase-F ollow up in 1mo Anxiety 90690939 F41.9 -Panic attacks recently with difficulty managing day to day activities for taking care of baby-Not on any medication for anxiety-pr escribed Hydroxyzin e 25mg BID PRN anxiety-Co ntinue 50mg at bedtime-Fo llow up in 1 mo [id number] Charleen Downing [facility] - [facility]IORA [facility] POS [address] [place] [address]10-763 7 12/09/2020 09:47:41 12/09/2020 10:29:55 [id number] Sejal Downing [facility] - [facility] POS [address] [place] [address] 59825-650 7 12/16/2020 09:47:47 12/16/2020 10:29:40 [id number] Salina WINNIE, Sejal [facility] - [facility] POS [address] [place] [address] [phone] 7 12/23/2020 09:48:19 12/23/2020 10:30:21 [id number] Salina WINNIE, Sejal [facility] - [facility]IOR[facility] POS [address] [place] [address] 86968-932 7 12/30/2020 09:49:49 12/30/2020 10:29:43 [id number] Juan VANEGAS, Estephanie [facility] - [facility]ENC[facility] POS [address] [place] [address] 01/04/2021 13:46:56 01/04/2021 15:28:07 Depressive disorder 67821675 F32.9 Pt feels mood has plateaued , trying to be more social. Will continue duloxetine at 90 mg qd. Anxiety 59744431 F41.9 Will continue hydroxyzin e at 50 mg qd. Pt improving sleep hygiene. [id number] Salina MANGLE TENDER, Sejal [facility] - BEHAVIORA L [facility] POS [address] [place] [address] [id number] 7 01/06/2021 09:49:09 01/06/2021 10:30:08 [id number] Salina MANGLE TENDER, Sejal [facility] - [facility]IOR[facility] POS [address] [place] [address] [id number] 7 01/13/2021 09:49:40 01/13/2021 10:32:17 [id number] Salina MANGLE TENDER, Sejal [facility] - [facility] POS [address] [place] [address] [id number] 7 01/20/2021 09:48:04 01/20/2021 10:30:49 [id number] Salina MANGLE TENDER, Sejal [facility] - [facility] POS [address] [place] [place] [address] [id number] 02/03/2021 09:47:36 02/03/2021 10:30:04 [id number] [place] MANGLE TENDER, Sejal [facility] [address] [place] [address] [id number] [id number] 02/10/2021 09:47:34 02/10/2021 10:30:14 [id number] [place] MANGLE TENDER, Sejal [facility] [address] [place] [address] [phone] 02/17/2021 09:47:34 02/17/2021 10:30:21 [id number] [place] MANGLE TENDER, Sejal [facility] [address] [place] [address] [id number] 02/24/2021 09:49:25 02/24/2021 10:29:38 [id number] Juan VANEGAS, Estephanie [facility] [address] [place] [address] [phone] 03/01/2021 09:31:03 03/01/2021 16:09:19 Mixed anxiety and depressive disorder [id number] F41.8 Pt on stable dose of 90 mg duloxetine , 50 mg hydroxyzin e. Filled medication s 02/24. Pt to continue with therapist. [id number] [place] MANGLE TENDER, Sejal [facility] POS [address] [place] [address] [phone] [id number] 03/03/2021 09:49:55 03/03/2021 10:29:44 [id number] [place] MANGLE TENDER, Sejal [facility] POS [address] [place] [place] [address] [phone] 03/10/2021 09:47:40 03/10/2021 10:30:59 [id number] Crystal VANEGAS, Letty [facility] [address] [place] [address] [phone] 03/15/2021 11:45:54 03/15/2021 12:31:03 Immunization due [id number] Z28.3 [id number] Salina MANGLE TENDER, Sejal [facility] POS [address] [place] [address] [phone] 03/24/2021 09:50:03 03/24/2021 10:29:58 [id number] Salina MANGLE TENDER, Sejal [facility] POS [address] [place] [address] [phone] 04/07/2021 09:48:04 04/07/2021 10:29:37 [id number] Juan VANEGAS, Estephanie [facility] [address] [place] [address] [phone] 04/12/2021 11:28:32 04/12/2021 16:12:02 Mixed anxiety and depressive disorder [id number] F41.8 Pt on stable dose of 90 mg duloxetine , 50 mg hydroxyzin e. Pt to continue with therapist. Pt still breastfeed ing. Mood and affect much improved per Dr. Espinal. [id number] Salina MANGLE TENDER, Sejal [facility] [address] [place] [address] [phone] 04/28/2021 09:48:26 04/28/2021 10:29:38 [id number] Salina MANGLE TENDER, Sejal [facility] [address] [place] [address] [phone] 05/05/2021 09:48:14 05/05/2021 10:30:00 [id number] Salina MANGLE TENDER, Sejal [facility] [address] [place] [address] [phone] 05/12/2021 09:49:49 05/12/2021 10:30:54 [id number] Salina MANGLE TENDER, Sejal [facility] POS [address] [place] [address] [phone] 05/26/2021 09:47:27 05/26/2021 10:29:48 [id number] Salina MANGLE TENDER, Sejal [facility] POS [address] [place] [address] [phone] 06/16/2021 09:49:08 06/16/2021 10:29:49 [id number] Salina MANGLE TENDER, Sejal [facility] POS [address] [place] [address] [phone] 07/14/2021 09:50:18 07/14/2021 10:30:10 [id number] Juan VANEGAS, [facility] - [facility] POS [address] [place] [address] 07/26/2021 09:26:14 07/26/2021 15:15:31 Mixed anxiety and depressive disorder [id number] F41.8 Pt on stable dose of 90 [...] note, pt and family are moving to [facility] in September/October, will need to establish care locally at that time. [id number] Sejal Downing [facility] [address] [place] [address] 08/11/2021 09:47:30 08/11/2021 10:29:54 [id number] Sejal Downing [facility] [address] [place] [phone] 09/08/2021 09:48:56 09/08/2021 10:29:55 Health Concerns Section Related Observation LastModified by Organization Detai ls LastModified Time None Recorded Concern Status LastModified by Organization Details LastModified Time None Recorded Advance Directives Directive N: I gave her the form for t he Living Will and Health Power of Salicylic Acid Blender, She does want to be resuscitated. She does not want to be maintained on chronic life support if there is little hope of a meaningful recovery. - 12/18/2018 Payers Insurance Date Sequence Insurance Name Policy Number Policy Mayorga Covered Member ID Mayorga Member ID Guarantor Name 09/11/2021 1 [facility] () Alice Linn [id number] Alice Linn 06/07/[address] [facility] Alice Linn [id number] Alice Linn Notes Date Note Type Note [...] to allow self-weaning Teddy VANEGAS, [address], [place], [address], [facility] 03/29/2021 16:05:30 03/01/2021 text/html [...] or vasectomy for Teddy VANEGAS, [address], [place], [address], [place] [facility] 03/29/2021 14:47:01 04/12/2021 text/html 40 [...] on son's birthday Teddy VANEGAS, [address], [place], [address], [place] [facility] 05/17/2021 14:43:47 07/26/2021 text/html 40 y/o F with MH x anxiety and depressive disorder in psych clinic for follow up. Mixed anxiety and depressive disorder- mood stable- feels that she now reacts better, reacted calmly when she had to call quahogger to inform that daughter is sick- reports feeling static-y in head , dry mouth, having pins and needles in hands , wondering if it is medication side effect- weaned daughter- problems sleeping, taking melatonin- reassigned to [place], moving in - oldest son will start at [employer] in the fall- excited about changes but also concerned about the stress Teddy VANEGAS, [address] [facility],[address], [place], [address], [place] [facility] 08/02/2021 15:47:04 OBGyn Episode Ob Episode Information Episode Created Date Number of Fetuses Patient Bloodtype Patient rh Status Prepregnancy Weight lbs Domestic Partner Domestic Partner Phone Father Name Surface Grinder Tender Status 01/12/20 16 1 CLOSED Fetus Data First Name Last Name Admitted to NICU Weight (g) Sex Living Outcome Pediatric Complications Fetus ID Race Codes Race Delivery Type 3798.83 3 M Full Term 24081 Vaginal Suleiman Calculation Initial Suleiman Date Initial [...] Domestic Partner Domestic Partner Phone Father Name Surface Grinder Tender Status 01/12/20 16 1 CLOSED Fetus Data First Name Last Name Admitted to NICU Weight (g) Sex Living Outcome Pediatric Complications Fetus ID Race Codes Race Delivery Type 3316.89 15 M Full Term [id number] Vaginal Suleiman Calculation Initial Suleiman Date Initial [...] Domestic Partner Domestic Partner Phone Father Name Surface Grinder Tender Status 08/04/19 20 1 O Positive CLOSED Fetus Data First Name Last Name Admitted to NICU Weight (g) Sex Living Outcome Pediatric Complications Fetus ID Race Codes Race Delivery Type Meg 3061.74 6 F [id number] Vaginal Problems Problem Notes 02/03 poss expo sure COVID testintg 02/03 negGDM 3hr GTT pos On insultin, 01/20 increas 12 u qhsAMA, Elevated BMI Del 39+wk, Serial growth u/s. Weekly BPP, NST2/wkHarmony low riskH/O migraine TURNER, H/O depression, stopped all meds.[id number] tea Flu vaccine 01/05/20c/o pressureExposure to Detrol and Alcohol early first trim Problem Name Start Date End Date Resolution Snomed Code Not e Gestational diabetes mellitu s class A2 01/30/2020 [id number] Suleiman Calculation Initial Suleiman Date Initial Exam [...] in lbs Pre/Post Dialysis Refused With clothes 201.178699399598 BP Diastolic BP Location Tested BP Systolic BP Type 80 R arm 138 sitting Fetus Heart Rate Present Fetus Movement Comments Initial ob visit -In office ob dating us today - c/o nausea. Ob u/s reviewed, show viable iup consistent with LMP dating. Reviewed with patient. Nausea, cont. Able to tolerate some po. Reviewed [place], patient would like to proceed. Reviewed diet and course. f/u 2wk, [place] next visit. labs next visit. Flowsheet Date 08/18/2019 Jackson Score Blood Edema Fundus Height Fundus Units Glucose Ketones Leukocytes Nitrite Labor Signs Protein Cervic Dilation Cervic Effacement Cervic Station none neg Type Weight in lbs Pre/Post Dialysis Refused With clothes 202.559358960742 BP Diastolic BP Location Tested BP Systolic BP Type 78 R arm 130 sitting Fetus Heart Rate Present A 150 Fetus Movement Comments ob/fu -Initial ob labs drawn today- c/o pelvic cramping due to constipation on Saturday, Dr. Marquez prescribed Dulcolax (bisacodyl) 5 mg tablet,delayed release. Pt has been feeling better. No other c/o. labs today. [place] test reviewed. Patient would like to proceed. N/V much improved. PTL signs and symptoms reviewed. f/u 5wk. Flowsheet Date 09/22/2019 Jackson Score Blood Edema Fundus Height Fundus Units Glucose Ketones Leukocytes Nitrite Labor Signs Protein Cervic Dilation Cervic Effacement Cervic Station trace none neg Type Weight in lbs Pre/Post Dialysis Refused With clothes 205.229021204345 BP Diastolic BP Location Tested BP Systolic BP Type 80 L arm 132 sitting Fetus Heart Rate Present A 150 Fetus Movement Comments ob/fu - nausea has decreased . c/o pelvic pain when standing or shifting side to side in bed. Reviewed [place] neg. No other c/o. PTL signs and symptoms reviewed. Sched MFM u/s. f/u 4wk. Flowsheet Date 10/20/2019 Jackson Score Blood Edema Fundus Height Fundus Units Glucose Ketones Leukocytes Nitrite Labor Signs Protein Cervic Dilation Cervic Effacement Cervic Station 20 none neg Type Weight in lbs Pre/Post Dialysis Refused With clothes 208.30567683851 BP Diastolic BP Location Tested BP Systolic [...] in lbs Pre/Post Dialysis Refused With clothes 206.726394088296 BP Diastolic BP Location Tested BP Systolic BP Type 72 L arm 124 sitting Fetus Heart Rate Present A 150 Fetus Movement A Yes Comments Glucose and cbc labs today. Ingrown hair has been having some discomfort. Exam neg. 1hr gluc today. Reviewed [facility] u/s. PTL signs and symptoms reviewed. f/u 2wk. Flowsheet Date 12/08/2019 Jackson Score Blood Edema Fundus Height Fundus Units Glucose Ketones Leukocytes Nitrite Labor Signs Protein Cervic Dilation Cervic Effacement Cervic Station none neg Type Weight in lbs Pre/Post Dialysis Refused With clothes 208.597418664117 BP Diastolic BP Location Tested BP Systolic BP Type 70 L arm 118 sitting Fetus Heart Rate Present A 150 Fetus Movement A Yes Comments ob fu. No complains. Reviewe d 3hr gtt pos. refer to [facility], dietitian. Send glucometer, chem strips, lancets. [...] in lbs Pre/Post Dialysis Refused With clothes 207.902714158583 BP Diastolic BP Location Tested BP Systolic BP Type 72 L arm 124 sitting Fetus Heart Rate Present A 145 Fetus Movement A Yes Comments Pt c/o pain on hips when sle eping. Occ tightening muscle on ankle and foot. Denies other c/o. MFM u/s reviewed. 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 PTL signs and symptoms reviewed. f/u 2wk. Flowsheet Date 01/05/2020 Jackson Score Blood Edema Fundus Height Fundus Units Glucose Ketones Leukocytes Nitrite Labor Signs Protein Cervic Dilation Cervic Effacement Cervic Station 32 none neg Type Weight in lbs Pre/Post Dialysis Refused With clothes 205.828022672186 BP Diastolic BP Location Tested BP Systolic [...] in lbs Pre/Post Dialysis Refused With clothes 205.582501231453 BP Diastolic BP Location Tested BP Systolic BP Type 72 L arm 112 sitting Fetus Heart Rate Present A 135 Fetus Movement A Yes Comments Ob f/u, c/o still having leg cramps. States had episode of dizziness resolved after Juice. BS has been better. NST reactive. [facility] u/s schedule for next tu. PTL signs and symptoms reviewed. f/u 2wk. [...] in lbs Pre/Post Dialysis Refused With clothes 205.426253797396 BP Diastolic BP Location Tested BP Systolic [...] in lbs Pre/Post Dialysis Refused With clothes 204.229404732110 BP Diastolic BP Location Tested BP Systolic BP Type 70 R arm 118 sitting Fetus Heart Rate Present A 140 Fetus Movement A Yes Comments ob/fu -NST today - c/o abdom inal tightening. NST reactive, BS controlled monitored by [facility]. She states dizziness has improved with [...] in lbs Pre/Post Dialysis Refused With clothes 205.494964381195 BP Diastolic BP Location Tested BP Systolic BP Type 76 L arm 124 sitting Fetus Heart Rate Present A 140 Fetus Movement A Yes Comments ob/fu -NST today - Pt was se en by [facility] on Saturday02/09/2020 - Covid 19 test [...] in lbs Pre/Post Dialysis Refused With clothes 205.081658218399 BP Diastolic BP Location Tested BP Systolic [...] in lbs Pre/Post Dialysis Refused With clothes 201.464010847630 BP Diastolic BP Location Tested BP Systolic BP Type 80 L arm 120 sitting Fetus Heart Rate Present A 145 Fetus Movement A Yes Comments ob/fu - Pt was at [facility] on Saturday due to having contractions- [...] in lbs Pre/Post Dialysis Refused With clothes 192.062714145710 BP Diastolic BP Location Tested BP Systolic [...] 09/22/2019 Toxoplasmosis precautions (cats/raw meat) [email or web address] 09/22/2019 Latter-Day [email or web address] 09/22/2019 Hospital choice [email or web address] 09/22/2019 Blood [...]
== END 2024-09-03 00:01 | disposition home or self-care (01) ==
LOC: HO.HMGCX
PROVIDERS: PCP Internal Medicine; Visit Provider Obstetrics & Gynecology
DX: R31.29 Other microscopic hematuria (principal); N39.46 Mixed incontinence; N32.89 Other specified disorders of bladder; Z13.9 Encounter for screening, unspecified
CPT/HCPCS: 51798; 81003; 99212

== ENCOUNTER 2024-09-03 15:36 | Outpatient (AMB) | payer OTHER, SELFPAY ==
--- NOTE | 2024-09-03 15:55 | A.OFFVIS_ITS ---
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 Required: No Accompanied by: Self / Same As Patient Allergies latex Adverse Reaction (Mild, Verified 09/03/24 17:55) hives cefuroxime axetil Adverse Reaction (Uncoded 09/03/24 17:55) rash Medication List - Last Reconciled 09/03/24 by GEORGE Barcenas-JASMYNE cholecalciferol (vitamin D3) 125 mcg PO DAILY duloxetine 90 mg (3 x 30 mg) PO DAILY 30 days hydroxyzine HCl 25 mg PO TID PRN lisinopril-hydrochlorothiazide 10-12.5 mg 1 tab PO DAILY magnesium oxide 400 mg PO DAILY 30 days methylphenidate HCl ER (Concerta) 27 mg PO DAILY mirtazapine 7.5 mg PO BEDTIME 30 days Myrbetriq ER (mirabegron) 50 mg PO DAILY 90 days NS omega 7-dvi-qoz-fish oil 100-160-1,000 mg (Fish Oil) caps PO ondansetron 8 mg PO Q8H prazosin 2 mg PO BEDTIME 30 days solifenacin (Vesicare) 5 mg PO DAILY 30 days HPI Comments Details: Alice is a pleasant 43-year-old female patient of Dr. Serrano. She has a past medical history of hypertension, allergies, vitamin-D deficiency, mixed lipidemia, obesity, anxiety, and depression. She presents to the office today for follow-up of her microscopic hematuria and lower urinary tract symptoms. In discussion with the patient today she reports to be doing and feeling well. She reports significant improvement in lower urinary tract symptoms she had been experiencing with dual therapy of Myrbetriq and VESIcare as prescribed. She discusses having had a recent IUD placement and experiencing a urinary tract infection shortly after at which time she seeked urgent care services for treatment. She reports she has since completed antibiotic therapy and has had no bothersome urinary issues or concerns. In office urinalysis results reviewed with the patient today. 3+ microscopic hematuria otherwise within normal limits. Previous workup has included a retroperitoneal ultrasound 04/14 noting bilateral kidneys with no calculi or hydronephrosis. The bladder is well distended. Bladder jets are demonstrated. Pre void bladder volume is approximately 375 mL. Postvoid bladder volume is approximately 30 mL. Incidental note of right complex ovarian cysts. Patient reports this is not new and she follows up with her picker tender helper regarding this issue. She also underwent an office cystoscopy with Dr. Iker Duque 04/14 Cystoscopy findings: Mild erythema-nonspecific, mild to moderate trabeculations, no suspicious bladder lesions visualized. She discusses episodes of nocturia has significantly improved. In office urinalysis results reviewed with the patient today 3+ microscopic hematuria otherwise within normal limits. Previous urine cytology 03/15 Negative for high-grade urothelial carcinoma. She denies dysuria, foul smelling urine, changes to urinary stream, flank pain, fever, and or chills. She does have a previous history of 3 vaginal deliveries. We discussed potential causes of nocturia as well as microscopic hematuria. In review of patient's chart it appears urine culture 08/14 Ecoli. She otherwise offers no other issues or concerns at this time. [facility] Medical History Nausea and vomiting in adult Acute respiratory disease Major depressive disorder, recurrent, severe with psychotic features Decreased hearing Tinnitus Reduced visual acuity Pyelonephritis (03/22/15) (08/04/19) Obesity (12/12/18) Migraine Menorrhagia Irritable bowel syndrome Insomnia Hiatal hernia Hemorrhoids Gastroesophageal reflux disease Fracture of hand (04/22/09) Female stress incontinence Blood in urine Severe carpal tunnel syndrome of right wrist Medical clearance for psychiatric admission Hypertriglyceridemia Positive Tinel's sign Positive Phalen maneuver Cervicalgia HTN (hypertension) Decreased hearing of both ears Environmental and seasonal allergies Tinnitus of both ears Knee pain Excessive daytime sleepiness Loud snoring Vitamin D deficiency Impaired fasting glucose Mixed dyslipidemia Morbid obesity Hiatal hernia with gastroesophageal reflux Family history of premature CAD Annual visit for general adult medical examination with abnormal findings Surgical History H/O endoscopy H/O wisdom tooth extraction Family History Father Substance use disorder Mental health disorder Alcoholism Myocardial infarction acute, Onset Age: 55 Depression Maternal Uncle Testicular cancer Social History Household Members: Family Household Members Other:: and 2 children Housing: House Do you presently have visiting nurse or other home services: No Alcohol intake: current Alcohol intake frequency: holidays/special occasions only Patient Tobacco Use Status: Never used Tobacco e-Cigarette/Vaping Use: Never Used Substance Use Type: Marijuana service: No Current occupational status: unemployed and other 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 Sexual orientation: Straight/Heterosexual Gender identity: Female Cognitive needs: No Hearing needs: No Vision needs: Yes Review of Systems Const All systems reviewed & are unremarkable except as noted in HPI and below Physical Exam Const General: cooperative, healthy appearing, comfortable, no acute distress, well developed, alert and awake Nutritional Appearance: overweight Orientation/consciousness: patient oriented x3 Limitations: no limitations HEENT Head: Yes normal to inspection, Yes normocephalic and Yes atraumatic Ears: hearing grossly normal bilaterally Eyes General: appearance normal, both eyes and all related structures Neck Neck: Yes normal visual inspection and Yes trachea midline Chest Chest palpation & inspection: normal inspection of the chest Resp Effort & Inspection: normal respiratory effort and able to speak in complete sentences Cardio Rate: regular rate GI Inspection: Yes normal to inspection General: Yes no CVA tenderness Back/Spine/Pelvis Back: no CVA tenderness Skin General skin exam: no rashes or lesions noted Neuro General: patient oriented x3 Extrem General: Yes normal to inspection Psych Appearance: grossly normal Mental Status: mental status grossly normal Speech and movement: Clear speech present Affect: normal affect Attitude: cooperative Thought process: Normal thought process present Thought content: Normal thought content present Insight: Fair insight present (Psych) Judgement: Fair judgement present (Psych) Office Procedures Post Void Residual Post Residual Void Post Void Residual (PVR): 52 [id number]-Mqlr Void Residual by ultrasound Results AMB Urinalysis, Automated UA Leukoctes 0 Ro/uL Last Edit by Yohana Shook on 09/03/24 16:23 UA Nitrite Last Edit by Yohana Shook on 09/03/24 16:23 UA Urobilinogen 0.2 mg/dL Last Edit by Yohana Shook on 09/03/24 16:23 UA Protein 0 mg/dL Last Edit by Yohana Shook on 09/03/24 16:23 UA pH 7.0 Last Edit by Yohana Shook on 09/03/24 16:23 UA Blood 200 Angel/uL Last Edit by Yohana Shook on 09/03/24 16:23 UA Specific Charlotte 1.010 Last Edit by Yohana Shook on 09/03/24 16:23 UA Ketone Last Edit by Yohana Shook on 09/03/24 16:23 UA Bilirubin 0 mg/dL Last Edit by Yohana Shook on 09/03/24 16:23 UA Glucose 0 mg/dL Last Edit by Yohana Shook on 09/03/24 16:23 Results Reviewed Results Reviewed: Laboratory Last Values Urine pH (Auto) 7.0 09/03/24 16:22 Specific Charlotte (Auto) 1.010 09/03/24 16:22 Urine Protein (Auto) 0 mg/dL 09/03/24 16:22 Glucose (UA)(Auto) 0 mg/dL 09/03/24 16:22 Urine Blood (Auto) 200 Angel/uL 09/03/24 16:22 Urine Bilirubin (Auto) 0 mg/dL 09/03/24 16:22 Urine Urobilinogen (Auto) 0.2 mg/dL 09/03/24 16:22 Leukocyte Esterase (Auto) 0 Ro/uL 09/03/24 16:22 Assessment & Plan Assessment & Plan (1) Bladder wall thickening: Code(s): N32.89 - Other specified disorders of bladder Category: Medical (2) Mixed stress and urge urinary incontinence: Code(s): N39.46 - Mixed incontinence Category: Medical (3) Microscopic hematuria: Code(s): R31.29 - Other microscopic hematuria Category: Medical Plan In office urinalysis results reviewed with the patient today; as noted above; will send for urine cytology. PVR 52 mL Continue Myrbetriq and VESIcare as prescribed. Patient reports be happy with current voiding parameters on Myrbetriq and VESIcare. We discussed potential causes of lower urinary tract symptoms patient was experiencing as well as microscopic hematuria. We discussed bladder triggers/irritants. We discussed importance of limiting fluids 2-3 hours prior to bed to decrease episodes of nocturia. Will continue with surveillance monitoring. Follow-up in 6 months with PVR; or sooner with any issues, concerns, and or questions should Orders: Orders Urine Cytology Today R31.29 - Other microscopic hematuria AMB Urinalysis Automated Today Z13.9 - Encounter for screening, unspecified AMB Post Void Residual by ultrasound Today N30.01 - Acute cystitis with hematuria Patient Instructions: The patient had an opportunity to ask questions regarding the treatment plan. All questions were answered. Physical exam, labs, and imaging were discussed and reviewed in detail. As well as risks, benefits, and discussion of treatment choices. No major barriers to understanding were identified. The patient expressed understanding and agreement with the above treatment plan. The patient was made aware they should contact our office by phone for worsening of their current condition, the appearance of new symptoms, or with any questions or concerns. Compliance is encouraged with any medications and follow up testing that is ordered. It is a privilege to be allowed the opportunity to participate in? your urological care.? Again, if you have any questions or concerns If you have any questions or concerns please do not hesitate to contact me. The office is [phone]. This note is constructed using voice recognition software. While every effort has been made to ensure accuracy sales order clerk errors may have been included. Yours sincerely, DARLENE Barcenas Coding Level of Care Code Est Pt Level 3 (46763) Diagnoses Bladder wall thickening N32.89 Mixed stress and urge urinary incontinence N39.46 Microscopic hematuria R31.29 CPT Codes Post Residual Void - PVR CPT Code: 83591-Pwth Void Residual by ultrasound ([id number])
--- OUTSIDE RECORDS SUMMARY | 2024-09-03 15:59 | XMS_ITS | Data Portability ---
Author Organization [place] [facility], [place] - [facility] - Address [address] [place] [address] Care Team Providers Care Terrazzo Installer Name Role Phone ROBIN PENALOZANN Primary Care [...] 6-8 weeks. This visit was conducted via [employer] website [employer] using both audio and video during the 2019 COVID-19 pandemic. Patient consented to non face to face service. Patient location: car Provider location: [facility] [place], [place] Start time: 1417 End time: 142 Participants [...] This visit was conducted via telehealth website [employer] using both audio and video during the 2020. Patient consented to non face to face service. Patient location: home Provider location: [facility] [place] [place] Start time: 1424 End time: 1429 Participants [...] This visit was conducted via telehealth website [employer] using both audio and video during the 2019. Patient consented to non face to face service. Patient location: home Provider location: [facility] [place] [place] Start time: 1352 End time: 1401 Participants [...] mg capsule,del ayed release 2021 022 [facility], [address], [place], [address], 15:13:01 duloxetine 60 mg capsule,del ayed release 04/06/ 2022 04/06/2 022 [facility], [address], [place], [address], 2 15:12:56 hydroxyzine HCl 50 mg tablet 2021 022 [facility], [address], [place], [address], 2 15:12:57 hydroxyzine HCl 50 mg tablet 2020 021 [facility], [address], [place], [address], 15:27:21 duloxetine 30 mg capsule,del ayed release 2020 021 [facility], [address], [place], [address], 15:27:17 duloxetine 60 mg capsule,del ayed release 2020 021 [facility], [address], [place], [address], 15:27:17 Patient TargetsNo targets recorded. Patient InstructionsNo instructions recorded. Reason for Referral None Reported. Problems Name Problem SNOMED Code Status Onset Date Resolution Date Notes Provider Name and Address Organization Details Recorded Time Multiple environm ental allergie s Active scotty sepulveda [facility] 6 12:23:04 Irritabl e bowel syndrome 62833377 Active celiac disease Ab testing Neg 11/03; improved w/ Gluten free diet scotty sepulveda [facility] 6 12:23:04 Gastroes ophageal reflux disease 064877463 Active scotty sepulveda [facility] 6 12:23:04 Mixed anxiety and depressi ve disorder 854076154 Active hx of post depressi on and took lexapro but felt poor response , wellbutr in was very neg side effects (bad vivid dreams of her hurting her family); zoloft was very good response but had to stop when breast feeding bad w/d (didn't wean) scotty sepulveda [facility] 6 12:23:03 Migraine 55766649 [facility] 12:23:03 Hiatal hernia 06983053 [facility] 6 12:23:04 Hemorrho ids 10748516 Completed 12/11/2018 tx'd w/ anusol-H C Timbo Mckeon DO [address], [place], [address] , [facility] 9 17:20:55 Female stress incontin ence 55273391 Active Madelyn [facility] 7 18:34:40 Pyelonep hritis 56746904 Completed 201412/11/2018 tx'd w/ Levaquin Timbo Mckeon DO [address], [place], [address] , [place] [facility] 9 17:19:51 Insomnia 474828427 [facility] 6 12:23:03 Fracture of hand 31183533 Completed 200912/11/2018 Left Timbo Mckeon DO [address], [place], [address] , [place] [facility] 9 17:20:04 Tinnitus 62126791 [facility] 6 12:23:04 Decrease d hearing 303567667 Completed 12/11/2018 Timbo Mckeon DO [address], [place], [address] , [place] [facility] 9 17:19:28 Reduced visual acuity 58430495 Active scotty banda null, [place] [facility] 6 12:23:04 Sensorin eural hearing loss of bilatera l ears 796799144 Active Asha Bradford [address], [place], [address] , [place] [facility] 6 13:11:25 Menorrha obi 759773035 Active Margy Becker MD [address], [place], [address] , [place] [facility] 7 22:56:04 Blood in urine 96181753 Completed 12/11/2018 Timbo Mckeon DO [address], [place], [address] , [place] [facility] 9 17:19:34 Obesity 014937552 Active 2018 Timbo Mckeon DO [address], [place], [address] , [place] [facility] 9 01:18:28 Pregnanc y 52478545 Completed 201903/16/2020 Aliyahjanet Whitehead null, [place] [facility] 0 12:25:25 Gestatio nal diabetes mellitus class A2 84544539 Active 2019 Aliyahjanet Whitehead null, [place] [facility] 0 12:25:22 Gestatio nal diabetes mellitus class A2 44534401 Completed 2019 Aliyahjanet [place]head null, [place] [facility] 0 12:25:22 Depressi ve disorder 42428223 Active 2020 Yaya Casanova DO [address], [place], [address] , [place] [facility] 1 15:54:10 Notes:hx plantar [...] Non-Stress Test completed Malka VANEGAS, [address], [place], [address], [facility] 02/25/2020 13:33:54 02/18/20 20 Non-Stress Test completed Cali Ace MD [address], [place], [address], [facility] 02/18/2020 15:49:47 02/11/20 20 Non-Stress Test completed Cali Ace MD [address], [place], [address], [facility] 02/11/2020 15:03:18 01/12/20 20 Non-Stress Test completed Cali Ace MD [address], [place], [address], [place] [facility] 01/12/2020 18:21:04 12/19/19 19 Date of Last Pap Smear completed Timbo Mckeon DO [address], [place], [address], [facility] 12/24/2018 14:45:47 06/30/19 17 Ortho Corticosteroid Injection completed Vy Feliciano [facility] 06/29/2016 12:26:26 06/29/19 17 Cystoscopy (female) completed Chuck VANEGAS, [address], [place], [address], [facility] 06/28/2016 12:41:47 06/14/19 17 Bladder Scan completed Chuck VANEGAS, [address], [place], [address], [facility] 06/14/2016 13:22:58 04/05/20 16 Tympanometry completed Asha Bradford [address], [place], [address], [facility] 04/05/2016 13:11:04 04/05/20 16 Audiogram.old completed Asha Bradford [address], [place], [address], [facility] 04/05/2016 13:11:04 11/21/19 15 Other completed Georgi Moctezuma MD [address], [place], [address], [facility] 01/13/2016 00:18:30 10/21/19 15 Other completed Georgi Moctezuma MD [address], [place], [address], [facility] 01/13/2016 00:18:30 04/22/19 00 Acton Teeth Removed completed Georgi Motcezuma MD [address], [place], [address], [facility] 01/12/2016 22:50:32 Oral surgery procedure completed Dena Argueta [facility] 04/06/2016 12:36:17 Imaging Results None recorded. Procedure Notes None recorded. Medical Equipment None Reported. Allergies Allergen ID Allergen Name Allergen Category Reaction Reaction Severity Criticality Documentation Date Start Date Code Code System Note Provider Name and Address Organization Details Recorded Time 270180 latex environme nt,medica tion hives moderate Not available 01/12/2016 64288 91 RxNorm Georgi Moctezuma MD [address] [facility] [facility] [address], [place], [address], [facility] 6 22:23:54 611340 acetamino phen / hydrocodo ne medicatio n other moderate Not available 04/05/2016 29890 2 RxNorm facia l numbn ess scotty banda null, [facility] 6 12:23:03 054399 Wellbutri n medicatio n Not available Not available Not available 06/18/2016 34212 RxNorm vivid dream s/fri ghten ing ; used w/ post partu m alivia Moctezuma MD, Georgi Costa [address], [place], [address], [facility] 7 11:10:40 872847 adhesive tape environme nt,medica tion Not available Not available Not available 03/16/2020 15974 UNK Aliyah Julian null, [facility] 0 12:21:24 Medications Name [...] e 137 mcg (0.1 %) nasal spray [place] 1 spray every day by intranas al [...] Not Available Not Available Not Available FreeStyle [place] Lite kit 03/16 completed Not Available Not [...] completed Not Available Not Available Not Available Se-Christos 19 29 mg iron-1 mg tablet Take 1 tablet by oral route for 90 days. 08/17 completed Not Available Not Available Not Available Vitals None Recorded Social History Question Answer Notes LastModified by Organizat ion Details LastModified Time Tobacco Smoking Status Never Smoker 12/11/18 Kathy Guallpa [facility], [place] [facility] 12/11/2018 16:59:59 Do You Have An Advance Directive? No I Gave Her The Form For The Living Will And Health Power Of Student Services Vice President, She Does Want To Be Resuscitated. She Does Not Want To Be Maintained On Chronic Life Support If There Is Little Hope Of A Meaningful Recovery. - 12/18/2018 Information not available 12/18/2018 Are You Blind Or Do You Have [...] COVID-19 While That Case Was Ill? No [email or web address] Information not available 07/30/2019 In The 14 Days Before Symptom Onset, Have You Had Close Contact With A Person Who Is Under Investigation For COVID-19 While That Person Was Ill? No [email or web address] Information not available 07/30/2019 Have You Been To An Area Known To Be High Risk For COVID-19? No Information not available 07/30/2019 What Type Of Diet Are You Following? REGULAR Low Sodium Information not available 01/12/2016 Which Illicit Or Recreational Drugs Have You Used? None Information not available 12/11/2018 Has The Patient Fallen Two Or More Times In The Past Year? No 12/11/18 Mh Information not available 04/06/2016 Have You Traveled Outside Of The [place] In The Last 21 Days (3 Weeks)? No Information not available 04/06/2016 Do You Have Any Islam Beliefs That May Impact Your Health Care Decisions? No Does Not Follow Any Episcopal Information not available 12/11/2018 Did You Hurt Yourself When You Fell In The Last Year? No 12/11/18 Mh Information not available 04/06/2016 Education: 12 Information not available 12/11/2018 Marital Status Informatio n not available 01/12/2016 What Was The Date Of Your Most Recent Tobacco Screening? 09/12/2020 [email or web address] Information not available 09/15/2020 Are You Sexually Active? Yes Information not available 04/06/2016 At What Age Did You Start Smoking Tobacco? 0 Information not available 04/06/2016 How Much Tobacco Do You Smoke? No Information not available 01/12/2016 How Many Years Have You Smoked Tobacco? 0 Information not available 04/06/2016 Sex: Unknown Functional Status Question Answer Note LastModified by Organizat ion Details LastModified Time What is your level of alcohol consumption? None [email or web address] Information not available 10/27/2019 Do you or have you ever used smokeless tobacco? 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 Never used electronic cigarettes Information not available 12/11/2018 What is your exercise level? Moderate walking Information not available 01/12/2016 Mental Status Question Answer Note LastModified by Organization D etails LastModified Time Do you have difficulty concentrating, remembering or making decisions? No Information no t available 08/12/2017 Family History Relationship Description Onset Age of this Age Resolved Age Notes LastModified by Organization Details LastModified Time Father Myocardial infarction 55 [email or web address] Not available 04/25 18:44:02 Father Hypertensive disorder [email or web address] Not available 2016 18:44:02 Father Hyperlipidem ia [email or web address] Not available 2016 18:44:02 Paternal Aunt Malignant tumor of cervix [email or web address] Not available 2016 18:44:02 Paternal Aunt Dementia [email or web address] Not a vailable 04/25/2016 18:44:02 Mother Pyelonephrit [...] quadrivalent , PF 1 completed Maile sepulveda [facility] 03/15/2021 12:10:26 COVID-19, mRNA, LNP-S, PF, 30 mcg/0.3 mL dose 1 completed Savana sepulveda [facility] 08/30/2020 10:45:30 COVID-19, mRNA, LNP-S, PF, 30 mcg/0.3 mL dose 1 completed Savana sepulveda [facility] 08/30/2020 10:45:45 COVID-19, mRNA, LNP-S, PF, 30 mcg/0.3 mL dose 1 completed Maile sepulveda [facility] 03/15/2021 11:48:03 Influenza, split virus, trivalent, PF 8 cancelled patient objection Not Available [facility] 05/09/2019 02:33:30 Influenza, MDCK, quadrivalent , PF 8 completed Not Available [facility] 05/09/2019 03:23:32 Influenza, MDCK, quadrivalent , PF 9 completed Not Available [facility] 05/09/2019 03:01:50 Influenza, split virus, quadrivalent , PF 0 completed Savana sepulveda [facility] 01/05/2020 16:31:36 Tdap 3 completed Not Available [facility] 03/07/2020 09:20:47 Past Encounters Encounter ID Performer Location Encounter Start Date Encounter Closed Date Diagnosis/Indication Diagnosis SNOMED-CT Code Diagnosis ICD10 Code Diagnosis Note [id number] Rhianna VANEGAS, Georgi Costa [facility] [address] [facility],[place] [address] 01/12/2016 10:23:10 01/13/2016 12:09:34 Adult health examination 926877810 Z00.00 Hematology screening test 572073992 Z13.0 Hyperlipid emia screening 989044894 Z13.220 Endocrine/ metabolic screening 785452369 Z13.228 Mixed anxi ety and depressive disorder 191351519 F41.8 Tinnitus 97746266 H93.13 Decreased hearing 656980 001 H91.93 Reduced visual acuity 13 113082 H54.7 Contraception care 08342 5005 Z30.40 [id number] Lv lucas MD, Chandrakant Shipley [facility] [address] [place] [address], [address] [place] [address] 04/05/2016 11:57:03 04/05/2016 13:17:18 Tinnitus 75951371 H93.13 At this time the patient has bilateral tinnitus, most likely due to her bilateral hearing loss. Please see plan as described above. FG Allergic r hinitis caused by pollen 74066221 J30.1 At this time the patient has [...] Sensorineu ral hearing loss of bilateral ears 321725690 H90.3 At this time the patient comes [...] will follow up as needed. FG Dizziness 215054723 R42 At this time the patient also complains of an off balance feeling with walking up and down stairs, but does not have any other problems. We will see if this improves on nasal steroid spray. She had no further questions and will follow up as needed for now. FG [id number] Asha Bradford [facility] [address] [place] [address],[address] [place] [address] 04/05/2016 13:09:55 04/05/2016 13:12:09 Sensorineural hearing loss of bilateral ears 521393845 H90.3 [id number] Eugenio VANEGAS, Margy Valdivia [facility] [place] [address] [place] [address],[place] [place] [address] 04/06/2016 12:09:16 04/06/2016 13:47:10 Gynecologic examination 57605121 Z01.419 Screening for malignant neoplasm of cervix 835888536 Z12.4 Menorrhagia 845891177 N9 2.0 History of urinary tract infection 0453807184 107 Z87.440 Surveillan ce of contraception 292782508 Z30.40 [id number] Eugenio VANEGAS, Margy Valdivia [facility] [place] [address] [place] [address],[address] [place] [address] 04/25/2016 17:48:13 04/25/2016 19:53:53 Menorrhagia 160570610 N92.0 Blood in urine 95539448 R31.9 [id number] Rhianna VANEGAS, Georgi Costa [facility] [address],[facility] [place] [address] 05/08/2016 10:01:31 05/08/2016 12:08:23 Migraine 69816819 G43.909 Mixed anxi ety and depressive disorder 785818339 F41.8 Carpal davonte simon syndrome 91068916 G56.00 Insomnia 528941074 G47.0 0 Hand pain 05347549 M79.6 42 Vitamin D deficiency 347 86834 E55.9 [id number] Chuck VANEGAS, [facility] POS [address] [place] [address] 06/14/2016 12:22:40 06/14/2016 14:22:12 Microscopic hematuria 742690894 R31.21 she had 2-5 rbc on last ua done 04/26.17-has had full workup done in the past by another urologist and was negative but it was a while agovijay send urine for c/s and cytology-f ollow up for cystoscopy in office Renal colic 2691287 N23 she is having bilateral flank pain-previ ous urologist had checked a renal us but this may not picker and sorter load and unload renal stones-jc l do ct scan for stone search prior to cystoscopy [id number] Rhianna VANEGAS, Georgi Costa [facility] [address],[place] [address] 06/18/2016 10:33:06 06/18/2016 12:04:21 Mixed anxiety and depressive disorder 412019399 F41.8 [id number] Chuck VANEGAS, [facility] POS [address] [place] [address] 06/28/2016 12:09:59 06/28/2016 12:45:15 Blood in urine 49042108 R31.9 her cystoscopy shows mild chronic bullous cystitis and a diverticul um, mild grade 1 trabeculat ions-will start on suppressiv e dose macrodanti n for one monthfollo w up in 3mos [id number] Donnell VANEGAS, Luis Soliz [facility] POS [address] [place] [address] 06/29/2016 11:24:40 07/13/2016 10:46:48 Hand pain 90453324 M79.643 Carpal davonte simon syndrome 19819689 G56.01 G56.02 [id number] Donnlel VANEGAS, Luis Soliz [facility] [place] POS [address] [place] [address] 07/13/2016 11:07:42 07/13/2016 13:24:50 Pain of wrist region 91515182 M25.531 Hand pain 12282775 M79.6 43 Carpal davonte simon syndrome 90498333 G56.01 G56.02 [id number] Rhianna VANEGAS, Georgi Costa [facility] [address],[place] [address] 07/16/2016 10:58:41 07/16/2016 11:42:57 Mixed anxiety and depressive disorder 965614849 F41.8 [id number] Donnell VANEGAS, Luis Soliz [facility] [place] [address] [place] [address] 08/13/2016 11:24:07 08/13/2016 12:23:07 Hand pain 23828232 M79.641 Pain of wrist region 566 18283 M25.531 Carpal davonte simon syndrome 77008771 G56.01 G56.02 [id number] Donnell VANEGAS, Luis Reynaoli [facility] [place] [address] [place] [address] 09/20/2016 11:45:56 09/20/2016 14:44:21 Pain of wrist region 22458094 M25.531 M25.532 Hand pain 71318901 M79.6 41 Carpal davonte simon syndrome 33126971 G56.01 G56.02 [id number] Chuck VANEGAS, [facility] [place] POS [address] [place] [address] 10/04/2016 11:54:33 10/04/2016 12:31:12 Blood in urine 04358246 R31.9 she had history of microhemat uriawas given 3mos of suppressiv e dose abxhas not seen any blood in urinewill check ua/culture Bladder mu scle dysfunction - overactive 045708616 N32.81 she goes to bathroom every 2 hours during day and 2 times at night, occ urge incontinen cetrial of myrbetriq Female str ess incontinence 92516926 N39.3 -she does not require pads for the problemonl y occurs occasional ly with sneezingdi scussed treatment options- e will observe for now [id number] Donnell VANEGAS, Luis Soliz [facility] [place] [address] [facility] [address] [place] [address] 10/08/2016 09:47:26 10/08/2016 10:46:23 Pain of wrist region 66845737 M25.531 M25.532 Hand pain 74779079 M79.6 41 Carpal davonte simon syndrome 24310792 G56.01 G56.02 [id number] Donnell VANEGAS, Luis Soliz [facility] [address] [facility] [place] [address] 11/09/2016 10:50:45 11/09/2016 12:33:48 Pain of wrist region 33989624 M25.531 M25.532 Neck pain 80679170 M54.2 Hand pain 78251033 M79.6 41 Carpal davonte simon syndrome 37438430 G56.01 G56.02 [id number] Rhianna VANEGAS, Georgi [facility] [address],[place] [address] 11/21/2016 10:22:19 12/11/2016 16:16:59 Low back pain 451222753 M54.5 Snoring 02542592 R06.83 [id number] Georgi Moctezuma MD AM [address],[place] [address] 01/10/2017 16:20:44 01/10/2017 17:19:55 Pain in left knee 8081615459 25925 M25.562 Depressive disorder 3548 9007 F32.89 Fatigue 06556590 R53.83 [id number] Chuck VAENGAS, Vibha [facility] [address] [place] [address] 01/31/2017 11:27:16 01/31/2017 12:47:19 Bladder muscle dysfunction - overactive 801147953 N32.81 she goes to bathroom every 2 hours during day and 2 times at night, occ urge incontinen cemyrbetri q didn't help and wasn't covered Female str ess incontinence 34024948 N39.3 she is more bothered by it latelywoul d like to try physical therapyref erral to at [facility] given [id number] Tete Brian DO [facility] Maddie [facility] AM[facility] [address] [place] [address] 03/08/2017 11:55:53 03/13/2017 00:11:33 Fatigue 53419490 R53.83 --concerns for fatigue and insomnia. Have discussed sleep hygeine techniques with patient and reviewed the sleep study with her. Discussed weight loss and controllin g nasal congestion .--Pt will attempt these and follow up in the next 3 months. Allergic rhinitis 126465 04 J30.9 --nasal congestion Obesity 962558993 E66.9 --discusse d keeping track of her calories and aiming to eat about 500 calories less then what she normally eats.--Pt should f/u in 3 months on weight loss. [id number] Tete Brian DO [facility] Maddie [facility] AM[facility] [address] [place] [address] 06/12/2017 10:00:03 06/12/2017 10:41:36 Active or passive immunization 244689424 Z23 Fatigue 17484693 R53.83 --cont use of breathe right strips and use nasal steroid. Allergic rhinitis 261966 04 J30.9 --nasal congestion continued. Increase cetirizine to 10 mg daily, but go back to 5 mg if she feels overly fatigued. Cont fluticason e and also start azelastine daily. Gastroesop hageal reflux disease 651615860 K21.9 [id number] Tete Brian DO [facility] AM[facility] [place] [address] 08/12/2017 10:54:36 08/12/2017 11:48:10 Obesity 462960680 E66.9 --discusse d weight loss and diet again Insomnia 234946836 G47.0 0 --pt instructed to take amitriptyl ine daily.--Co unselled on possible side effects. RTC if insomnia worsens Neck pain 78242724 M54.2 --negative adsons test, negative spurling sign. Muscle spasm in b/l neck.--Giv en exercises for neck. OTC tylenol and ibuprofen. RTC as needed. Migraine 94448551 G43.90 9 [id number] RocTete valero DO [facility] AM#[address] POS [address] [place] [address] 02/11/2018 10:03:22 02/11/2018 10:50:04 Administration of influenza vaccine 14475639 Z23 Migraine 89928631 G43.90 9 --fioricet , amitriptyl ine and topiramate Insomnia 991847959 G47.0 0 --pt instructed to take amitriptyl ine daily.--Co unselled on possible side effects. RTC if insomnia worsens Environmental allergy 42 7389362 T78.49XA [id number] Nitin Laguerre MD [facility] AM#1 POS [address] [place] [address] 04/02/2018 14:24:14 04/02/2018 15:10:58 Adult health examination 599216936 Z00.00 Migraine 55511332 G43.90 9 [id number] [address] [facility]#1 POS [address] [facility] [place] [address] 12/11/2018 16:42:55 12/11/2018 17:56:44 Bladder muscle dysfunction - overactive 022814170 N32.81 she has urinary incontinen ce and requesting a refill of the detrol, this has helped her in the past Body mass index 30+ - obesity 825732326 Z68.39 The patient's current weight is 209# with a height of 5' 1.25 and a correspond ing BMI (Body Mass Index) of 39.2. The medical definition of Obesity is a BMI greater than 30. Your Elizabeth Body Weight is approximat malinda about 116#. [...] migraine prophylaxi s and weight loss. Migraine 28317154 G43.90 9 see the above plan [id number] Timbo Mckeon DO [facility]#1 POS [address] [facility] [place] [address] 12/18/2018 09:57:19 12/18/2018 11:37:10 Adult health examination 897039483 Z00.00 Female Complete Physical Exam: I discussed [...] exercise, diet. Achieve/ma intain ideal body weight. Elizabeth body weight is about 116 pounds,Adv anced directives : I gave the patient the form for LIVING WILL and health power of sports attorney from the [place] [employer], the patient does want to be resuscitat ed but the patient does not want to be maintained on chronic life support if there is little hope of meaningful recovery. Active or passive immunization 220514308 Z23 Flu vaccine today, She is up to date with the Tdap Body mass index 30+ - obesity 368824192 Z68.38 The patient's current weight is 206.75# with a height of 5' 1.25 and a correspond ing BMI (Body Mass Index) of 38.7. The medical definition of Obesity is a BMI greater than 30. Your Elizabeth Body Weight is approximat malinda about 116#. A reduced calorie, reduced carbohydra te weight reduction diet as well as increased activity.. She has lost about 3# since the last visit Hyperhidro sis of axilla 111951052 L74.510 Drysol Jessie.ly to axilla once daily at first and then about three times per week, do not apply to fresh shaven skin. Elevated blood-pressure reading without diagnosis of hypertension 013202216 R03.0 I encouraged the patient to check the blood pressure and log the results. Please follow a reduced sodium diet and maintain/a chieve ideal body weight. [id number] Malka VANEGAS, Cali Carter [facility] POS [address] [place] [address] 07/30/2019 10:48:16 07/30/2019 12:44:41 test positive 456518759 Z32.01 Mild hyper emesis gravidarum 51891661 O21.0 Reviewed and hyperemesi s with patient. Reviewed diet at length. Questions answered. Recommend consider hold PNV. Start vitamin B6, unisom. Ob dating u/s in 1 week. f/u 1wk. Amenorrhea 53376975 N91. 2 Reviewed findings, positive test. [id number] Malka VANEGAS, Cali Carter [facility] POS [address] [place] [address] 08/04/2019 11:31:16 08/04/2019 13:34:46 Disorder of menstruation 676097956 N92.6 Ob u/s reviewed, show viable iup consistent with LMP dating. Reviewed with patient. Routine an tenatal care 408930639 Z34.81 Z3A.08 Venereal d isease screening 239768983 Z11.3 Advanced m aternal age 073673788 O09.899 [id number] Malka VANEGAS, [facility] - [facility] [place] POS [address] [place] [address] 08/18/2019 11:25:44 08/18/2019 13:21:34 Advanced maternal age 841624056 O09.899 Routine an tenatal care 352211616 Z34.81 Z3A.08 Mild hyper emesis gravidarum 63868517 O21.0 mostly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 office ob dating us today - c/o nausea. Ob u/s reviewed, show viable iup consistent with LMP dating. Reviewed with patient. Nausea, cont. Able to tolerate some po. Reviewed [place], patient would like to proceed. Reviewed diet and course. f/u 2wk, [place] next visit. labs next visit. Flowsheet Date 08/18/2019 Jackson Score Blood Edema Fundus Height Fundus Units Glucose Ketones Leukocytes Nitrite Labor Signs Protein Cervic Dilation Cervic Effacement Cervic Station none neg Type Weight in lbs Pre/Post Dialysis Refused With clothes 202.212253202202 BP Diastolic BP Location Tested BP Systolic BP Type 78 R arm 130 sitting Fetus Heart Rate Present A 150 Fetus Movement Comments ob/fu -Initial ob labs drawn today- c/o pelvic cramping due to constipation on Saturday, Dr. Marquez prescribed Dulcolax (bisacodyl) 5 mg tablet,delayed release. Pt has been feeling better. No other c/o. labs today. [place] test reviewed. Patient would like to proceed. N/V much improved. PTL signs and symptoms reviewed. f/u 5wk. Flowsheet Date 09/22/2019 Jackson Score Blood Edema Fundus Height Fundus Units Glucose Ketones Leukocytes Nitrite Labor Signs Protein Cervic Dilation Cervic Effacement Cervic Station trace none neg Type Weight in lbs Pre/Post Dialysis Refused With clothes 205.387981108162 BP Diastolic BP Location Tested BP Systolic BP Type 80 L arm 132 sitting Fetus Heart Rate Present A 150 Fetus Movement Comments ob/fu - nausea has decreased . c/o pelvic pain when standing or shifting side to side in bed. Reviewed [place] neg. No other c/o. PTL signs and symptoms reviewed. Sched MFM u/s. f/u 4wk. Flowsheet Date 10/20/2019 Jackson Score Blood Edema Fundus Height Fundus Units Glucose Ketones Leukocytes Nitrite Labor Signs Protein Cervic Dilation Cervic Effacement Cervic Station 20 none neg Type Weight in lbs Pre/Post Dialysis Refused With clothes 208.62965090247 BP Diastolic BP Location Tested BP Systolic BP Type 78 R arm 120 sitting Fetus Heart Rate Present A 150 Fetus Movement A Yes Comments ob/fu - MFM scheduled on 10/26. c/o continues to have nausea, frequent crackling in her right ear, nasal congestion, mild nose bleeds. No other c/o. Exam neg, TM neg. recommend saline mist. MFM u/s sched 10/26. PTL signs and symptoms [...] in lbs Pre/Post Dialysis Refused With clothes 206.427852594036 BP Diastolic BP Location Tested BP Systolic BP Type 72 L arm 124 sitting Fetus Heart Rate Present A 150 Fetus Movement A Yes Comments Glucose and cbc labs today. Ingrown hair has been having some discomfort. Exam neg. 1hr gluc today. Reviewed [facility] u/s. PTL signs and symptoms reviewed. f/u 2wk. Flowsheet Date 12/08/2019 Jackson Score Blood Edema Fundus Height Fundus Units Glucose Ketones Leukocytes Nitrite Labor Signs Protein Cervic Dilation Cervic Effacement Cervic Station none neg Type Weight in lbs Pre/Post Dialysis Refused With clothes 208.928523367163 BP Diastolic BP Location Tested BP Systolic BP Type 70 L arm 118 sitting Fetus Heart Rate Present A 150 Fetus Movement A Yes Comments ob fu. No complains. Reviewe d 3hr gtt pos. refer to [facility], dietitian. Send glucometer, chem strips, lancets. PTL [...] in lbs Pre/Post Dialysis Refused With clothes 207.834760348469 BP Diastolic BP Location Tested BP Systolic BP Type 72 L arm 124 sitting Fetus Heart Rate Present A 145 Fetus Movement A Yes Comments Pt c/o pain on hips when sle eping. Occ tightening muscle on ankle and foot. Denies other c/o. MFM u/s reviewed. BS fasting intermitt elevated, adjusting diet per embryology professor. PTL signs and symptoms reviewed. f/u 2wk. Flowsheet Date 01/05/2020 Jackson Score Blood Edema Fundus Height Fundus Units Glucose Ketones Leukocytes Nitrite Labor Signs Protein Cervic Dilation Cervic Effacement Cervic Station 32 none neg Type Weight in lbs Pre/Post Dialysis Refused With clothes 205.923597461407 BP Diastolic BP Location Tested BP Systolic [...] in lbs Pre/Post Dialysis Refused With clothes 205.891023415204 BP Diastolic BP Location Tested BP Systolic [...] in lbs Pre/Post Dialysis Refused With clothes 205.288812768840 BP Diastolic BP Location Tested BP Systolic [...] in lbs Pre/Post Dialysis Refused With clothes 204.188595273128 BP Diastolic BP Location Tested BP Systolic BP Type 70 R arm 118 sitting Fetus Heart Rate Present A 140 Fetus Movement A Yes Comments ob/fu -NST today - c/o abdom inal tightening. NST reactive, BS controlled monitored by [facility]. She states dizziness has improved with antihistamines [...] in lbs Pre/Post Dialysis Refused With clothes 205.368582477339 BP Diastolic BP Location Tested BP Systolic BP Type 76 L arm 124 sitting Fetus Heart Rate Present A 140 Fetus Movement A Yes Comments ob/fu -NST today - Pt was se en by [facility] on Saturday02/09/2020 - Covid 19 test was [...] in lbs Pre/Post Dialysis Refused With clothes 205.992744698261 BP Diastolic BP Location Tested BP Systolic [...] in lbs Pre/Post Dialysis Refused With clothes 201.341156987637 BP Diastolic BP Location Tested BP Systolic BP Type 80 L arm 120 sitting Fetus Heart Rate Present A 145 Fetus Movement A Yes Comments ob/fu - Pt was at [facility] L[facility] on Saturday due to [...] in lbs Pre/Post Dialysis Refused With clothes 192.391552793609 BP Diastolic BP Location Tested BP Systolic [...] 09/22/2019 Toxoplasmosis precautions (cats/raw meat) [email or web address] 09/22/2019 Episcopal [email or web address] 09/22/2019 Hospital choice [email or web address] 09/22/2019 Blood [...]
--- OUTSIDE RECORDS SUMMARY | 2024-09-03 16:00 | XMS_ITS | Continuity of Care Document ---
Author Name [facility] Organization [facility] Care Team Providers Care Graduate Student Name Role Phone [facility] Unavailable Unavailable Medications Combined list of outpatient [...] CITRON PHARMA L, 500 ea. BOTTLE Active [id number] 4 2023 10 Pharmac y Data Transac tion Service Facilit y Benzonatate ([employer]) 100 CAPSULE in 1 BOTTLE Active [id number] 06/26/19 2 4 2023 60 Pharmac y Data Transac tion Service Facilit y DIAZEPAM (DIAZEPAM), 5MG, TABLET, ORAL, IVAX PHARMACEUT, 100 ea. BOTTLE Active [id number] 4 2023 10 Pharmac y Data Transac tion Service Facilit y DULOXETINE HCL (DULOXETINE HCL), 60 MG, CAPSULE DR, ORAL, BRECKENRIDG E, 90 ea. BOTTLE Active [id number] 4 2023 90 Pharmac y Data Transac tion Service Facilit y DULOXETINE HCL (DULOXETINE HCL), 60 MG, CAPSULE DR, ORAL, BRECKENRIDG E, 90 ea. BOTTLE Active [id number] 4 2023 90 Pharmac y Data Transac tion Service Facilit y LIDOCAINE (lidocaine) , 5 %, ADH. PATCH, TOPICAL, AMNEAL PHARMACE, 30 ea. BOX Active [id number] 4 2023 30 Pharmac y Data Transac tion Service Facilit y LISINOPRIL (lisinopril ), 10 MG, TABLET, ORAL, LUPIN PHARMACEU, 1000 ea. BOTTLE Active [id number] 4 03/20/ 2024 30 Pharmac y Data Transac tion Service Facilit y LISINOPRIL (lisinopril ), 10 MG, TABLET, ORAL, LUPIN PHARMACEU, 1000 ea. BOTTLE Active [id number] 4 2023 30 Pharmac y Data Transac tion Service Facilit y LISINOPRIL- HCTZ (LISINOPRIL /HYDROCHLOR OTHIAZIDE), 10-12.5MG, TABLET, ORAL, LUPIN PHARMACEU, 100 ea. BOTTLE Active [id number] 4 2023 30 Pharmac y Data Transac tion Service Facilit y LISINOPRIL- HCTZ (LISINOPRIL /HYDROCHLOR OTHIAZIDE), 10-12.5MG, TABLET, ORAL, LUPIN PHARMACEU, 100 ea. BOTTLE Active [id number] 4 2023 30 Pharmac y Data Transac tion Service Facilit y SULFAMETHOX AZOLE-TRIME THOPRIM (sulfametho xazole/trim ethoprim), 800-160 MG, TABLET, ORAL, RISING PHARM, 100 ea. BOTTLE Active [id number] 4 2023 14 Pharmac y Data Transac tion Service Facilit y Allergies, Adverse Reactions, Alerts Combined list of allergies from Department of Defense and Veterans Affairs facilities. It does not include entries that were removed or entered in error. Substance Category Reaction Severity Reaction type Status Date Reported Comments Source acetaminophe n-hydrocodon e Drug allergy Active One or More [facility] Facilities CARE TEAM COORDINATOR SCHEDULER ADHESIVES Propensity to adverse reaction (finding) active 0 [facility] Adhesives Allergy to substance Active One or More [facility] Facilities CARE TEAM COORDINATOR SCHEDULER HYDROCODONE Drug allergy (disorder) active 0 [facility] Latex Drug allergy Active One or More [facility] Facilities CARE TEAM COORDINATOR SCHEDULER LATEX GLOVE Propensity to adverse reactions to drug (finding) active 0 [facility] VICODIN Propensity to adverse reactions to drug (finding) active 0 [facility] Immunizations Combined list of available immunizations from the Department of Defense and Veterans Affairs facilities. Immunization Series Date Given Administered By Site Reaction Lot Number CVX Code Drug Crew Trainer Status Comments Source COVID-19, mRNA, LNP-S, PF, 30 mcg/0.3 mL dose 2020 [place], Pfizer [employer] [place] (PFR) Not Given COVID-19, mRNA, LNP-S, PF, 30 mcg/0.3 mL dose [facility] COVID-19, mRNA, LNP-S, PF, 30 mcg/0.3 mL dose 2020 GLUSHAK, Pfizer [employer] [place] (PFR) Not Given COVID-19, mRNA, LNP-S, PF, 30 mcg/0.3 mL dose [facility] COVID-19, mRNA, LNP-S, PF, 30 mcg/0.3 mL dose 2020 GLUSHAK, Pfizer [employer] [place] (PFR) Not Given COVID-19, mRNA, LNP-S, PF, 30 mcg/0.[address] [facility] Vital Signs Combined list of inpatient and outpatient Vital Signs from Department of Defense and Veterans Affairs, ranging from 12 months to all on record, depending upon the facility. Vital Sign Value Date Comments Source Systolic Blood Pressure 132 mm[Hg] 02/04/20 20:15:44 One or More [facility] Facilities CARE TEAM COORDINATOR SCHEDULER Diastolic Blood Pressure 78 mm[Hg] 02/04/2020 20:15:44 One or More [facility] Facilities CARE TEAM COORDINATOR SCHEDULER Procedures Combined list of: 1) Procedures from Department of Veterans Affairs facilities going back up to thelast 18 months, not all [place] non-surgical procedures are included; 2) All procedures from the Department of [facility] facilities. Procedure Procedure Type Code Date Perfomer [...] Plan No data available for this section 09/03/2024 Ambulatory Pharmacy Functional Status Combined list of recent functional and cognitive assessments recorded at Department of Defense and [facility] Affairs ([place] Functional [place] Measurement (FIM) Scale: 1 = Total Assistance (Subject = 0% +), 2 = Maximal Assistance (Subject = 25% +), 3 = Moderate Assistance (Subject = 50% +), 4 = Minimal Assistance (Subject = 75% +), 5 = Supervision, 6 = Modified [place] (Device), 7 = Complete [place] (Timely, Safely). Assessment Date/Time Source Assessment Type Assessment Skill Assessment Score Assessment Details No data available for this section
== END 2024-09-03 16:41 | disposition home or self-care (01) ==
LOC: HO.HUSH 15:37
PROVIDERS: PCP Internal Medicine; Visit Provider Nurse Practitioner Family
DX: N32.89 Other specified disorders of bladder (principal); N39.46 Mixed incontinence; R31.29 Other microscopic hematuria; Z13.9 Encounter for screening, unspecified
CPT/HCPCS: 99213

== ENCOUNTER 2024-09-03 16:11 | Outpatient (REF) | payer OTHER, SELFPAY ==
[2024-09-03 16:59] LABS: Urine Cytology See Pathology rpt
== END 2024-09-03 16:12 | disposition home or self-care (01) ==
LOC: HO.LNP 16:11
PROVIDERS: Visit Provider Nurse Practitioner Family
DX: R31.29 Other microscopic hematuria (principal); Z13.9 Encounter for screening, unspecified
CPT/HCPCS: 88112

== ENCOUNTER 2024-09-21 13:26 | Outpatient (AMB) | payer OTHER, SELFPAY ==
[2024-09-21 13:46] VITALS: BMI 47.2
--- NOTE | 2024-09-21 13:46 | A.OFFVIS_ITS ---
Vital Signs 09/21/24 13:46 Height 5 ft 1 in Weight 250 lb BMI 47.2 Intake Visit Reasons: IUD check Food Processor Required: No Information Interpreted: non-clinical & clinical Administrative Project Coordinator: Administrative Project Coordinator Present (Vicky BERNABE) Accompanied by: Self / Same As Patient Allergies latex Adverse Reaction (Mild, Verified 09/21/24 13:55) hives cefuroxime axetil Adverse Reaction (Uncoded 09/21/24 13:55) rash Is last menstrual period known: No (mirena) HPI Comments Details: The patient is presenting for IUD check after 1 st period following IUD insertion. The patient is complaining of continuous spotting since IUD insertion PENDING SALE TO [facility] Medical History Nausea and vomiting in adult Acute respiratory disease Major depressive disorder, recurrent, severe with psychotic features Decreased hearing Tinnitus Reduced visual acuity Pyelonephritis (03/22/15) (08/04/19) Obesity (12/12/18) Migraine Menorrhagia Irritable bowel syndrome Insomnia Hiatal hernia Hemorrhoids Gastroesophageal reflux disease Fracture of hand (04/22/09) Female stress incontinence Blood in urine Severe carpal tunnel syndrome of right wrist Medical clearance for psychiatric admission Hypertriglyceridemia Positive Tinel's sign Positive Phalen maneuver Cervicalgia HTN (hypertension) Decreased hearing of both ears Environmental and seasonal allergies Tinnitus of both ears Knee pain Excessive daytime sleepiness Loud snoring Vitamin D deficiency Impaired fasting glucose Mixed dyslipidemia Morbid obesity Hiatal hernia with gastroesophageal reflux Family history of premature CAD Annual visit for general adult medical examination with abnormal findings Surgical History H/O endoscopy H/O wisdom tooth extraction Family History Father Substance use disorder Mental health disorder Alcoholism Myocardial infarction acute, Onset Age: 56 Depression Maternal Uncle Testicular cancer Social History Household Members: Family Household Members Other:: and 2 children Housing: House Do you presently have visiting nurse or other home services: No Alcohol intake: current Alcohol intake frequency: holidays/special occasions only Patient Tobacco Use Status: Never used Tobacco e-Cigarette/Vaping Use: Never Used Substance Use Type: Marijuana service: No Current occupational status: unemployed and other 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 Sexual orientation: Straight/Heterosexual Gender identity: Female Cognitive needs: No Hearing needs: No Vision needs: Yes Review of Systems Const All systems reviewed & are unremarkable except as noted in HPI and below Physical Exam Vital Signs: BMI result Body Mass Index 47.2 General: Yes no CVA tenderness External Female Exam: normal external appearance and normal appearance of the urethra Speculum Exam - Vagina: normal appearance of the vagina, normal palpation, no lesions and no masses Speculum Exam - Cervix: normal appearance of the cervix, normal palpation, no lesions, no masses, nontender and Other cervical findings present (IUD string in place) Bimanual exam- vagina & uterus: normal bimanual exam, normal palpation, uterine size normal, normal palpation, uterine shape normal, No Cervical tenderness present and non-tender Bimanual Exam- Adnexa, other: normal adnexae Back/Spine/Pelvis Back: no CVA tenderness Results AMB Test Urine AMB Test Urine Negative Last Edit by Vicky Christiansen CMA on 13:56 Results Reviewed Results Reviewed: Laboratory Last Values Tst Clinic Negative 09/21/24 13:55 Assessment & Plan Assessment & Plan (1) IUD check up: Code(s): Z30.431 - Encounter for routine checking of intrauterine contraceptive device Category: Medical Plan: UPT done in the office was negative. Discussed with the patient the finding on physical exam, IUD string in place, the patient was reassured. Instructions given to patient to call in case of temperature above 100.4, severe cramping/pelvic pain, abnormal discharge or abnormal uterine bleeding or if she misses her menstrual cycle. Otherwise follow-up at her annual exam appointment. All questions answered, the patient verbalized understanding. Orders: Orders AMB HCG Urine Test Today Z32.02 - Encounter for test, result negative Coding Level of Care Code Est Pt Level 3 (16744) Diagnoses IUD check up Z30.431
--- OUTSIDE RECORDS SUMMARY | 2024-09-21 14:31 | XMS_ITS | Data Portability ---
Author Organization [place] - [facility], [place] - [facility] - Address [address] [place] [address] Care Team Providers Care Ship Purser Name Role Phone TREMAINE NINA Primary Care [...] 6-8 weeks. This visit was conducted via [employer] website [employer] using both audio and video during the 2019 COVID-19 pandemic. Patient consented to non face to face service. Patient location: car Provider location: [facility] Start time: 1417 End time: [...] This visit was conducted via telehealth website [employer] using both audio and video during the 2020. Patient consented to non face to face service. Patient location: home Provider location: [facility] Start time: 1424 End time: [...] This visit was conducted via telehealth website [employer] using both audio and video during the 2019. Patient consented to non face to face service. Patient location: home Provider location: [facility] Start time: 1352 End time: [...] mg capsule,del ayed release 2021 022 [facility], [address], [place], [address], 15:13:01 duloxetine 60 mg capsule,del ayed release 04/06/ 2022 04/06/2 022 [facility], [address], [place], [address], 2 15:12:56 hydroxyzine HCl 50 mg tablet 2021 022 [facility], [address], [place], [address], 2 15:12:57 hydroxyzine HCl 50 mg tablet 2020 021 [facility], [address], [place], [address], 15:27:21 duloxetine 30 mg capsule,del ayed release 2020 021 [facility], [address], [place], [address], 15:27:17 duloxetine 60 mg capsule,del ayed release 2020 021 [facility], [address], [place], [address], 15:27:17 Patient TargetsNo targets recorded. Patient InstructionsNo instructions recorded. Reason for Referral None Reported. Problems Name Problem SNOMED Code Status Onset Date Resolution Date Notes Provider Name and Address Organization Details Recorded Time Multiple environm ental allergie s Active scotty sepulveda [facility] 6 12:23:04 Irritabl e bowel syndrome 00985694 Active celiac disease Ab testing Neg 11/03; improved w/ Gluten free diet scotty sepulveda [facility] 6 12:23:04 Gastroes ophageal reflux disease 798898460 Active scotty sepulveda [facility] 6 12:23:04 Mixed anxiety and depressi ve disorder 354069451 Active hx of post depressi on and took lexapro but felt poor response , wellbutr in was very neg side effects (bad vivid dreams of her hurting her family); zoloft was very good response but had to stop when breast feeding bad w/d (didn't wean) scotty sepulveda [facility] 6 12:23:03 Migraine 24456273 [facility] 12:[facility]03 Hiatal hernia 00966383 [facility] 12:23:04 Hemorrho ids 82290426 Completed 12/11/2018 tx'd w/ anusol-H C Timbo Mckeon DO [address], [place], [address] , [facility] 9 17:20:55 Female stress incontin ence 34581488 [facility] 7 18:34:40 Pyelonep hritis 12317389 Completed 201412/11/2018 tx'd w/ Levaquin Timbo Mckeon DO [address], [place], [address] , [place] [facility] 9 17:19:51 Insomnia 171805397 [facility] 6 12:23:03 Fracture of hand 18605632 Completed 200912/11/2018 Left Timbo Mckeon DO [address], [place], [address] , [place] [facility] 9 17:20:04 Tinnitus 13203661 [facility] 12:23:04 Decrease d hearing 969642668 Completed 12/11/2018 Timbo Mckeon DO [address], [place], [address] , [place] [facility] 9 17:19:28 Reduced visual acuity 41971504 Active scotty banda null, [place] - [facility] 6 12:23:04 Sensorin eural hearing loss of bilatera l ears 845802398 Active Asha Bradford [address], [place], [address] , [place] - [facility] 6 13:11:25 Menorrha obi 435406597 Active Margy Becker MD [address], [place], [address] , [place] - [facility] 7 22:56:04 Blood in urine 80430022 Completed 12/11/2018 Timbo Mckeon DO [address], [place], [address] , [place] [facility] 9 17:19:34 Obesity 856037383 Active 2018 Timbo Mckeon DO [address], [place], [address] , [place] [facility] 9 01:18:28 Pregnanc y 56520952 Completed 201903/16/2020 Aliyahjanet [place] null, [place] - [facility] 0 12:25:25 Gestatio nal diabetes mellitus class A2 57236408 Active 2019 Aliyahjanet [place] null, [place] - [facility] 0 12:25:22 Gestatio nal diabetes mellitus class A2 88144520 Completed 2019 Aliyahjanet [place] null, [place] - [facility] 0 12:25:22 Depressi ve disorder 19654174 Active 2020 Yaya Casanova DO [address], [place], [address] , [place] [facility] 1 15:54:10 Notes:hx plantar fasciitis; hx [...] Non-Stress Test completed Malka VANEGAS, [address], [place], [address], [facility] 02/25/2020 13:33:54 02/18/20 20 Non-Stress Test completed Cali Ace MD [address], [place], [address], [facility] 02/18/2020 15:49:47 02/11/20 20 Non-Stress Test completed Cali Ace MD [address], [place], [address], [facility] 02/11/2020 15:03:18 01/12/20 20 Non-Stress Test completed Cali Ace MD [address], [place], [address], [place] [facility] 01/12/2020 18:21:04 12/19/19 19 Date of Last Pap Smear completed Timbo Mckeon DO [address], [place], [address], [facility] 12/24/2018 14:45:47 06/30/19 17 Ortho Corticosteroid Injection completed Vy Feliciano [facility] 06/29/2016 12:26:26 06/29/19 17 Cystoscopy (female) completed Chuck VANEGAS, [address], [place], [address], [facility] 06/28/2016 12:41:47 06/14/19 17 Bladder Scan completed Chuck VANEGAS, [address], [place], [address], [facility] 06/14/2016 13:22:58 04/05/20 16 Tympanometry completed Asha Bradford [address], [place], [address], [facility] 04/05/2016 13:11:04 04/05/20 16 Audiogram.old completed Asha Bradford [address], [place], [address], [facility] 04/05/2016 13:11:04 11/21/19 15 Other completed Georgi Moctezuma MD [address] [facility] [address], [place], [address], [facility] 01/13/2016 00:18:30 10/21/19 15 Other completed Georgi Moctezuma MD [address], [place], [address], [facility] 01/13/2016 00:18:30 04/22/19 00 Leroy Teeth Removed completed Georgi Moctezuma MD [address], [place], [address], [facility] 01/12/2016 22:50:32 Oral surgery procedure completed Dena Argueta [facility] 04/06/2016 12:36:17 Imaging Results None recorded. Procedure Notes None recorded. Medical Equipment None Reported. Allergies Allergen ID Allergen Name Allergen Category Reaction Reaction Severity Criticality Documentation Date Start Date Code Code System Note Provider Name and Address Organization Details Recorded Time 147305 latex environme nt,medica tion hives moderate Not available 01/12/2016 76108 91 RxNorm Georgi Moctezuma MD [address], [place], [address], [facility] 6 22:23:54 897324 acetamino phen / hydrocodo ne medicatio n other moderate Not available 04/05/2016 87007 2 RxNorm facia l numbn ess scotty banda null, [facility] 6 12:23:03 844807 Wellbutri n medicatio n Not available Not available Not available 06/18/2016 73434 RxNorm vivid dream s/fri ghten ing ; used w/ post partu m alivia Moctezuma MD, Georgi Costa [address], [place], [address], [facility] 7 11:10:40 570319 adhesive tape environme nt,medica tion Not available Not available Not available 03/16/2020 89551 UNK Aliyah Julian null, [facility] 0 12:21:24 Medications Name Sig Start [...] e 137 mcg (0.1 %) nasal spray [place] 1 spray every day by intranas al [...] Not Available Not Available Not Available FreeStyle Friant Lite kit 03/16 completed Not Available Not [...] Smoking Status Never Smoker 12/11/18 Kathy Guallpa [facility], [place] - [facility] 12/11/2018 16:59:59 Do You Have An Advance Directive? No I Gave Her The Form For The Living Will And Health Power Of Production Reproduction Manager, She Does Want To Be Resuscitated. [...] COVID-19 While That Case Was Ill? No [email or web address] Information not available 07/30/2019 In The 14 Days Before Symptom Onset, Have You Had Close Contact With A Person Who Is Under Investigation For COVID-19 While That Person Was Ill? No [email or web address] Information not available 07/30/2019 Have You Been To An Area Known To Be High Risk For COVID-19? No [email or web address] Information not available 07/30/2019 What Type Of [...] not available 04/06/2016 Do You Have Any Mu-Ism Beliefs That May Impact Your Health Care Decisions? No Does Not Follow Any Alevism Information not available 12/11/2018 Did You Hurt Yourself When You Fell In The Last Year? No 12/11/18 Mh Information not available 04/06/2016 Education: 12 Information not available 12/11/2018 Marital Status Informatio n not available 01/12/2016 What Was The Date Of Your Most Recent Tobacco Screening? 09/12/2020 [email or web address] Information not available 09/15/2020 Are You Sexually [...] is your level of alcohol consumption? None [email or web address] Information not available 10/27/2019 Do you or have you ever used smokeless tobacco? 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 [employer] Information not available 09/15/2020 Do you or [...] Details LastModified Time Father Myocardial infarction 55 [email or web address] Not available 04/25 18:44:02 Father Hypertensive disorder Not available 2016 18:44:02 Father Hyperlipidem ia [email or web address] Not available 2016 18:44:02 Paternal Aunt Malignant tumor of cervix [email or web address] Not available 2016 18:44:02 Paternal Aunt Dementia Not a vailable 04/25/2016 18:44:02 Mother Pyelonephrit [...] quadrivalent , PF 1 completed Maile sepulveda [facility] 03/15/2021 12:10:26 COVID-19, mRNA, LNP-S, PF, 30 mcg/0.3 mL dose 1 completed Savana sepulveda [facility] 08/30/2020 10:45:30 COVID-19, mRNA, LNP-S, PF, 30 mcg/0.3 mL dose 1 completed Savana sepulveda [facility] 08/30/2020 10:45:45 COVID-19, mRNA, LNP-S, PF, 30 mcg/0.3 mL dose 1 completed Maile sepulveda [facility] 03/15/2021 11:48:03 Influenza, split virus, trivalent, PF 8 cancelled patient objection Not Available [facility] 05/09/2019 02:33:30 Influenza, MDCK, quadrivalent , PF 8 completed Not Available [facility] 05/09/2019 03:23:32 Influenza, MDCK, quadrivalent , PF 9 completed Not Available [facility] 05/09/2019 03:01:50 Influenza, split virus, quadrivalent , PF 0 completed Savana sepulveda [facility] 01/05/2020 16:31:36 Tdap 3 completed Not Available [facility] 03/07/2020 09:20:47 Past Encounters Encounter ID Performer Location Encounter Start Date Encounter Closed Date Diagnosis/Indication Diagnosis SNOMED-CT Code Diagnosis ICD10 Code Diagnosis Note [id number] Rhianna VANEGAS, Georgi Costa [facility] [address] [facility],[place] [address] 01/12/2016 10:23:10 01/13/2016 12:09:34 Adult health examination 461450292 Z00.00 Hematology screening test 338892267 Z13.0 Hyperlipid emia screening 267468668 Z13.220 Endocrine/ metabolic screening 219327712 Z13.228 Mixed anxi ety and depressive disorder 967302208 F41.8 Tinnitus 87483569 H93.13 Decreased hearing 152507 001 H91.93 Reduced visual acuity 13 276555 H54.7 Contraception care 16218 5005 Z30.40 [id number] Lv lucas MD, Chandrakant Shipley [facility] [place] [facility] [address] [place] [address], [address] [place] [address] 04/05/2016 11:57:03 04/05/2016 13:17:18 Tinnitus 22694516 H93.13 At this time the patient has bilateral tinnitus, most likely due to her bilateral hearing loss. Please see plan as described above. FG Allergic r hinitis caused by pollen 43600087 J30.1 At this time the patient has [...] Sensorineu ral hearing loss of bilateral ears 051061365 H90.3 At this time the patient comes [...] will follow up as needed. FG Dizziness 033171265 R42 At this time the patient also complains of an off balance feeling with walking up and down stairs, but does not have any other problems. We will see if this improves on nasal steroid spray. She had no further questions and will follow up as needed for now. FG [id number] Asha Bradford [facility] [place] [facility] [address] [place] [address],[place] [address] [place] [address] 04/05/2016 13:09:55 04/05/2016 13:12:09 Sensorineural hearing loss of bilateral ears 312944338 H90.3 [id number] Eugneio VANEGAS, Margy Valdivia [facility] [place] [address] [place] [address],[place] [address] [facility] [address] 04/06/2016 12:09:16 04/06/2016 13:47:10 Gynecologic examination 21023616 Z01.419 Screening for malignant neoplasm of cervix 866921402 Z12.4 Menorrhagia 285657284 N9 2.0 History of urinary tract infection 8916502075 107 Z87.440 Surveillan ce of contraception 473432962 Z30.40 [id number] Eugenio VANEGAS, Margy Valdivia [facility] [place] POS [address] [place] [address],[place] [address] [place] [address] 04/25/2016 17:48:13 04/25/2016 19:53:53 Menorrhagia 930215651 N92.0 Blood in urine 08881754 R31.9 [id number] Rhianna VANEGAS, Georgi Costa [facility] [place] [address],[facility] [place] [address] 05/08/2016 10:01:31 05/08/2016 12:08:23 Migraine 77015093 G43.909 Mixed anxi ety and depressive disorder 018604528 F41.8 Carpal davonte simon syndrome 84173859 G56.00 Insomnia 479891502 G47.0 0 Hand pain 53992705 M79.6 42 Vitamin D deficiency 347 41745 E55.9 [id number] Chuck VANEGAS, [facility] - UROLOGY [facility] POS [address] [place] [address] 06/14/2016 12:22:40 06/14/2016 14:22:12 Microscopic hematuria 783193283 R31.21 she had 2-5 rbc on last ua done 04/26.17-has had full workup done in the past by another urologist and was negative but it was a while agovijay send urine for c/s and cytology-f ollow up for cystoscopy in office Renal colic 1482080 N23 she is having bilateral flank pain-previ ous urologist had checked a renal us but 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 AM POS [address],[place] [address] 06/18/2016 10:33:06 06/18/2016 12:04:21 Mixed anxiety and depressive disorder 148500718 F41.8 [id number] Chuck VANEGAS, [facility] - UROLOGY [facility] POS [address] [place] [address] 06/28/2016 12:09:59 06/28/2016 12:45:15 Blood in urine 94641889 R31.9 her cystoscopy shows mild chronic bullous cystitis and a diverticul um, mild grade 1 trabeculat ions-will start on suppressiv e dose macrodanti n for one monthfollo w up in 3mos [id number] Donnell VANEGAS, Luis Soliz [facility] - ORTHOPEDI CSURGERY [facility] POS [address] [place] [address] 06/29/2016 11:24:40 07/13/2016 10:46:48 Hand pain 73663036 M79.643 Carpal davonte simon syndrome 59460799 G56.01 G56.02 [id number] Donnell VANEGAS, Luis Soliz [facility] [place] POS [address] [facility] [place] [address] 07/13/2016 11:07:42 07/13/2016 13:24:50 Pain of wrist region 37145199 M25.531 Hand pain 64846930 M79.6 43 Carpal davonte simon syndrome 29594852 G56.01 G56.02 [id number] Rhianna VANEGAS, Georgi Costa [facility] POS [address],[place] [address] 07/16/2016 10:58:41 07/16/2016 11:42:57 Mixed anxiety and depressive disorder 142536722 F41.8 [id number] Donnell VANEGAS, Luis Soliz [facility] [place] [address] [place] [address] 08/13/2016 11:24:07 08/13/2016 12:23:07 Hand pain 33515510 M79.641 Pain of wrist region 566 97626 M25.531 Carpal davonte simon syndrome 41029073 G56.01 G56.02 [id number] Donnell VANEGAS, Luis Reynaoli [facility] [place] [address] [place] [address] 09/20/2016 11:45:56 09/20/2016 14:44:21 Pain of wrist region 75798855 M25.531 M25.532 Hand pain 67396958 M79.6 41 Carpal davonte simon syndrome 18810848 G56.01 G56.02 [id number] Chuck VANEGAS, [facility] [place] POS [address] [facility] [place] [address] 10/04/2016 11:54:33 10/04/2016 12:31:12 Blood in urine 28367275 R31.9 she had history of microhemat uriawas given 3mos of suppressiv e dose abxhas not seen any blood in urinewill check ua/culture Bladder mu scle dysfunction - overactive 266365897 N32.81 she goes to bathroom every 2 hours during day and 2 times at night, occ urge incontinen cetrial of myrbetriq Female str ess incontinence 90972531 N39.3 -she does not require pads for the problemonl y occurs occasional ly with sneezingdi scussed treatment options- e will observe for now [id number] Donnell VANEGAS, Luis Soliz [facility] [place] [address] [facility] [place] [address] 10/08/2016 09:47:26 10/08/2016 10:46:23 Pain of wrist region 30841461 M25.531 M25.532 Hand pain 02346494 M79.6 41 Carpal davonte simon syndrome 49950510 G56.01 G56.02 [id number] Donnell VANEGAS, Luis Soliz [facility] CS[facility] POS [address] [facility],[address] [place] [address] 11/09/2016 10:50:45 11/09/2016 12:33:48 Pain of wrist region 41851054 M25.531 M25.532 Neck pain 98902332 M54.2 Hand pain 19233274 M79.6 41 Carpal davonte simon syndrome 12499387 G56.01 G56.02 [id number] Rhianna VANEGAS, Georgi [facility] [address],[place] [address] 11/21/2016 10:22:19 12/11/2016 16:16:59 Low back pain 821362742 M54.5 Snoring 71835186 R06.83 [id number] Georgi Moctezuma MD AM [address],[place] [address] 01/10/2017 16:20:44 01/10/2017 17:19:55 Pain in left knee 7883056241 58603 M25.562 Depressive disorder 3548 9007 F32.89 Fatigue 28272593 R53.83 [id number] Chuck VANEGAS, Vibha [facility] - UROLOGY [facility] POS [address] [place] [address] 01/31/2017 11:27:16 01/31/2017 12:47:19 Bladder muscle dysfunction - overactive 646564548 N32.81 she goes to bathroom every 2 hours during day and 2 times at night, occ urge incontinen cemyrbetri q didn't help and wasn't covered Female str ess incontinence 86710431 N39.3 she is more bothered by it latelywoul d like to try physical therapyref erral to at [facility] given [id number] Tete Brian DO [facility] Maddie [facility]1 [address] [place] [address] 03/08/2017 11:55:53 03/13/2017 00:11:33 Fatigue 66175157 R53.83 --concerns for fatigue and insomnia. Have discussed sleep hygeine techniques with patient and reviewed the sleep study with her. Discussed weight loss and controllin g nasal congestion .--Pt will attempt these and follow up in the next 3 months. Allergic rhinitis 049581 04 J30.9 --nasal congestion Obesity 503270333 E66.9 --discusse d keeping track of her calories and aiming to eat about 500 calories less then what she normally eats.--Pt should f/u in 3 months on weight loss. [id number] Tete Brian DO [facility] Maddie [facility]YM[facility] AM[facility]1 [address] [place] [address] 06/12/2017 10:00:03 06/12/2017 10:41:36 Active or passive immunization 872163831 Z23 Fatigue 13036811 R53.83 --cont use of breathe right strips and use nasal steroid. Allergic rhinitis 165783 04 J30.9 --nasal congestion continued. Increase cetirizine to 10 mg daily, but go back to 5 mg if she feels overly fatigued. Cont fluticason e and also start azelastine daily. Gastroesop hageal reflux disease 484269412 K21.9 [id number] Tete Brian DO [facility] AM[facility] [place] [address] 08/12/2017 10:54:36 08/12/2017 11:48:10 Obesity 019006781 E66.9 --discusse d weight loss and diet again Insomnia 985654705 G47.0 0 --pt instructed to take amitriptyl ine daily.--Co unselled on possible side effects. RTC if insomnia worsens Neck pain 32366075 M54.2 --negative adsons test, negative spurling sign. Muscle spasm in b/l neck.--Giv en exercises for neck. OTC tylenol and ibuprofen. RTC as needed. Migraine 72247214 G43.90 9 [id number] RocTete valero DO [facility] AM[facility] POS [address] [place] [address] 02/11/2018 10:03:22 02/11/2018 10:50:04 Administration of influenza vaccine 87669576 Z23 Migraine 01238482 G43.90 9 --fioricet , amitriptyl ine and topiramate Insomnia 733875191 G47.0 0 --pt instructed to take amitriptyl ine daily.--Co unselled on possible side effects. RTC if insomnia worsens Environmental allergy 42 8169370 T78.49XA [id number] Nitin Laguerre MD [facility] AM#[address] POS [address] [place] [address] 04/02/2018 14:24:14 04/02/2018 15:10:58 Adult health examination 304184685 Z00.00 Migraine 89172936 G43.90 9 [id number] Timbo Mckeon DO [facility] [address] [facility],[address] [place] [address] 12/11/2018 16:42:55 12/11/2018 17:56:44 Bladder muscle dysfunction - overactive 220744919 N32.81 she has urinary incontinen ce and requesting a refill of the detrol, this has helped her in the past Body mass index 30+ - obesity 693510040 Z68.39 The patient's current weight is 209# with a height of 5' 1.25 and a correspond ing BMI (Body Mass Index) of 39.2. The medical definition of Obesity is a BMI greater than 30. Your [place] Body Weight is approximat malinda about 116#. [...] migraine prophylaxi s and weight loss. Migraine 81842691 G43.90 9 see the above plan [id number] Timbo Mckeon DO [facility] [address] [facility],[address] [place] [address] 12/18/2018 09:57:19 12/18/2018 11:37:10 Adult health examination 993539568 Z00.00 Female Complete Physical Exam: I discussed [...] exercise, diet. Achieve/ma intain ideal body weight. [place] body weight is about 116 pounds,Adv anced directives : I gave the patient the form for LIVING WILL and health power of commercial litigation attorney from the [place] [employer], the patient does want to be resuscitat ed but the patient does not want to be maintained on chronic life support if there is little hope of meaningful recovery. Active or passive immunization 548636855 Z23 Flu vaccine today, She is up to date with the Tdap Body mass index 30+ - obesity 433300432 Z68.38 The patient's current weight is 206.75# with a height of 5' 1.25 and a correspond ing BMI (Body Mass Index) of 38.7. The medical definition of Obesity is a BMI greater than 30. Your [place] Body Weight is approximat malinda about 116#. A reduced calorie, reduced carbohydra te weight reduction diet as well as increased activity.. She has lost about 3# since the last visit Hyperhidro sis of axilla 471866035 L74.510 Drysol Jessie.ly to axilla once daily at first and then about three times per week, do not apply to fresh shaven skin. Elevated blood-pressure reading without diagnosis of hypertension 368240803 R03.0 I encouraged the patient to check the blood pressure and log the results. Please follow a reduced sodium diet and maintain/a chieve ideal body weight. [id number] Malka VANEGAS, Cali Carter [facility] - [facility] [employer] [facility] [place] [facility] [address] [place] [address] 07/30/2019 10:48:16 07/30/2019 12:44:41 test positive 082426480 Z32.01 Mild hyper emesis gravidarum 30287677 O21.0 Reviewed and hyperemesi s with patient. Reviewed diet at length. Questions answered. Recommend consider hold PNV. Start vitamin B6, unisom. Ob dating u/s in 1 week. f/u 1wk. Amenorrhea 44859913 N91. 2 Reviewed findings, positive test. [id number] Malka VANEGAS, Cali Carter [facility] - [facility] [facility] [place] [facility] [address] [place] [address] 08/04/2019 11:31:16 08/04/2019 13:34:46 Disorder of menstruation 419637469 N92.6 Ob u/s reviewed, show viable iup consistent with LMP dating. Reviewed with patient. Routine an tenatal care 723387859 Z34.81 Z3A.08 Venereal d isease screening 083479719 Z11.3 Advanced m aternal age 721745571 O09.899 [id number] Malka VANEGAS, [facility] - [employer] [employer] [facility] [place] POS [address] [place] [address] 7 08/18/2019 11:25:44 08/18/2019 13:21:34 Advanced maternal age 711329076 O09.899 Routine an tenatal care 153067880 Z34.81 Z3A.08 Mild hyper emesis gravidarum 87892740 O21.0 mostly resolved [id number] Malka VANEGAS, [facility] - [facility] [employer] [facility] [place] [facility] [address] [place] [address] 7 09/22/2019 13:57:14 09/22/2019 14:40:34 Multigravida of advanced maternal age 479773651 O09.522 Z3A.15 [id number] Malka VANEGAS, [facility] POS [address] [place] [address] 7 10/20/2019 13:50:29 10/20/2019 15:17:10 Multigravida of advanced maternal age 239244215 O09.523 Z3A.19 [id number] Primitivo VANEGAS, Dickson [facility] - MATERNAL [facility] POS [address] [place] [address] 10/27/2019 10:57:43 10/27/2019 14:41:15 Advanced maternal age 774141935 O09.899 expo sure to alcohol 689121370 O35.4XX9 expo sure to drug 522827003 O35.5XX9 Tolterodin e exposure [id number] Malka VANEGAS, [facility] - [facility] [employer] [facility] [place] [facility] [address] [place] [address] 7 11/24/2019 14:02:44 11/24/2019 15:47:27 Advanced maternal age 909144208 O09.899 Z3A.24 [id number] Malka VAENGAS, [facility] - [facility] [employer] [facility] [place] [facility] [address] [place] [address] 7 12/08/2019 13:27:12 12/08/2019 15:22:20 Gestational diabetes mellitus 55981431 O24.410 [id number] Erick VANEGAS, Thee Núñez [facility] - [place] [facility] [place] [facility] [address] [place] [address] 12/17/2019 17:23:54 12/17/2019 17:24:51 [id number] Dickson Langford MD - [place] [employer] [facility] POS [address] [place] [address] 12/22/2019 08:47:44 12/22/2019 11:38:14 Glucose tolerance test outside reference range 045029347 R73.09 Gestationa l diabetes mellitus 64986501 O24.410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 Patient would like to proceed. N/V much improved. PTL signs and symptoms reviewed. f/u 5wk. Flowsheet Date 09/22/2019 Jackson Score Blood Edema Fundus Height Fundus Units Glucose Ketones Leukocytes Nitrite Labor Signs Protein Cervic Dilation Cervic Effacement Cervic Station trace none neg Type Weight in lbs Pre/Post Dialysis Refused With clothes 205.025169550547 BP Diastolic BP Location Tested BP Systolic BP Type 80 L arm 132 sitting Fetus Heart Rate Present A 150 Fetus Movement Comments ob/fu - nausea has decreased . c/o pelvic pain when standing or shifting side to side in bed. Reviewed [place] neg. No other c/o. PTL signs and symptoms reviewed. Sched MFM u/s. f/u 4wk. Flowsheet Date 10/20/2019 Jackson Score Blood Edema Fundus Height Fundus Units Glucose Ketones Leukocytes Nitrite Labor Signs Protein Cervic Dilation Cervic Effacement Cervic Station 20 none neg Type Weight in lbs Pre/Post Dialysis Refused With clothes 208.34263815273 BP Diastolic BP Location Tested BP Systolic [...] in lbs Pre/Post Dialysis Refused With clothes 206.430996799044 BP Diastolic BP Location Tested BP Systolic BP Type 72 L arm 124 sitting Fetus Heart Rate Present A 150 Fetus Movement A Yes Comments Glucose and cbc labs today. Ingrown hair has been having some discomfort. Exam neg. 1hr gluc today. Reviewed [facility] u/s. PTL signs and symptoms reviewed. f/u 2wk. Flowsheet Date 12/08/2019 Jackson Score Blood Edema Fundus Height Fundus Units Glucose Ketones Leukocytes Nitrite Labor Signs Protein Cervic Dilation Cervic Effacement Cervic Station none neg Type Weight in lbs Pre/Post Dialysis Refused With clothes 208.301915997898 BP Diastolic BP Location Tested BP Systolic BP Type 70 L arm 118 sitting Fetus Heart Rate Present A 150 Fetus Movement A Yes Comments ob fu. No complains. Reviewe d 3hr gtt pos. refer to [facility], dietitian. Send glucometer, chem strips, lancets. [...] in lbs Pre/Post Dialysis Refused With clothes 207.523328299053 BP Diastolic BP Location Tested BP Systolic BP Type 72 L arm 124 sitting Fetus Heart Rate Present A 145 Fetus Movement A Yes Comments Pt c/o pain on hips when sle eping. Occ tightening muscle on ankle and foot. Denies other c/o. MFM u/s reviewed. 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 PTL signs and symptoms reviewed. f/u 2wk. Flowsheet Date 01/05/2020 Jackson Score Blood Edema Fundus Height Fundus Units Glucose Ketones Leukocytes Nitrite Labor Signs Protein Cervic Dilation Cervic Effacement Cervic Station 32 none neg Type Weight in lbs Pre/Post Dialysis Refused With clothes 205.405490436365 BP Diastolic BP Location Tested BP Systolic [...] in lbs Pre/Post Dialysis Refused With clothes 205.896890818140 BP Diastolic BP Location Tested BP Systolic [...] in lbs Pre/Post Dialysis Refused With clothes 205.938584879769 BP Diastolic BP Location Tested BP Systolic [...] in lbs Pre/Post Dialysis Refused With clothes 204.949422105383 BP Diastolic BP Location Tested BP Systolic BP Type 70 R arm 118 sitting Fetus Heart Rate Present A 140 Fetus Movement A Yes Comments ob/fu -NST today - c/o abdom inal tightening. NST reactive, BS controlled monitored by [facility]. She states dizziness has improved with antihistamines [...] in lbs Pre/Post Dialysis Refused With clothes 205.000463815800 BP Diastolic BP Location Tested BP Systolic BP Type 76 L arm 124 sitting Fetus Heart Rate Present A 140 Fetus Movement A Yes Comments ob/fu -NST today - Pt was se en by [facility] on Saturday02/09/2020 - Covid 19 test was [...] in lbs Pre/Post Dialysis Refused With clothes 205.206326275064 BP Diastolic BP Location Tested BP Systolic [...] in lbs Pre/Post Dialysis Refused With clothes 201.858182657140 BP Diastolic BP Location Tested BP Systolic BP Type 80 L arm 120 sitting Fetus Heart Rate Present A 145 Fetus Movement A Yes Comments ob/fu - Pt was at [facility] on Saturday due to [...] in lbs Pre/Post Dialysis Refused With clothes 192.331216984899 BP Diastolic BP Location Tested BP Systolic [...] 09/22/2019 Toxoplasmosis precautions (cats/raw meat) [email or web address] 09/22/2019 Alevism [email or web address] 09/22/2019 Hospital choice [email or web address] 09/22/2019 Blood [...]
== END 2024-09-21 14:04 | disposition home or self-care (01) ==
LOC: HO.HWS 13:26
PROVIDERS: PCP Internal Medicine; Visit Provider Obstetrics & Gynecology
DX: Z32.02 Encounter for pregnancy test, result negative (principal); Z30.431 Encounter for routine checking of intrauterine contraceptive device
CPT/HCPCS: 99213

== ENCOUNTER → 2024-09-21 13:26 | Outpatient (BNVA) | payer OTHER, SELFPAY | PROVIDERS: PCP Internal Medicine; Visit Provider Obstetrics & Gynecology | DX: Z30.431 Encounter for routine checking of intrauterine contraceptive device (principal) | CPT/HCPCS: 81025; 99212 ==

== ENCOUNTER 2024-09-29 13:56 | Outpatient (AMB) | payer OTHER, SELFPAY ==
--- NOTE | 2024-09-29 13:31 | MHC.OFFVISPS ---
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: No Allergies latex Adverse Reaction (Mild, Verified 09/21/24 13:55) hives cefuroxime axetil Adverse Reaction (Uncoded 09/21/24 13:55) rash Medication List - Last Reconciled 09/29/24 by Lynn Kemp APRN cholecalciferol (vitamin D3) 125 mcg PO DAILY duloxetine 90 mg (3 x 30 mg) PO DAILY 30 days hydroxyzine HCl 25 mg PO TID PRN lisinopril-hydrochlorothiazide 10-12.5 mg 1 tab PO DAILY magnesium oxide 400 mg PO DAILY 30 days methylphenidate HCl ER (Concerta) 27 mg PO DAILY mirtazapine 7.5 mg PO BEDTIME 30 days Myrbetriq ER (mirabegron) 50 mg PO DAILY 90 days NS omega 5-qeb-lbh-fish oil 100-160-1,000 mg (Fish Oil) caps PO prazosin 2 mg PO BEDTIME 30 days solifenacin (Vesicare) 5 mg PO DAILY 90 days HPI- Psychiatric Chief Complaint: follow up HPI Narrative: pt here for follow up re: mood, anxiety, and ADHD. Pt reports mood stable. She feel the concerta is more helpful than adderal; she is sleeping better; she does report brain zaps recently similar to when she was on higher dose of cymbalta; pt is more anxious; she is staying active and busy with projects. Pt is expressing hope for future; she denies SI or HI Past Psychiatric History: outpt tx since age 22. No IPLOC PAST MEDICTIONS: lexapro- increased anger wellbutrin- very negative/angry zoloft- woorked first time took - did not work on retrial prozac- ok for a bit and then stopped working effexor- excessive weight gain Subjective Subjective Subjective Medication Compliance: Yes Side effects from medications: No Review of Systems Medical Review of Systems: unchanged Mental Status Exam Mental Status Exam Patient Appearance: Well Grooomed Patient Orientation: Person, Place, Time and Situation Level of Consciousness: Awake Patient Behavior: Appropriate Mood Description: Cheerful and Anxious Affect Description: Cheerful and Anxious Patient Cognition Impaired: No Ability to Follow Directions: Good Speech Pattern: Clear and Excessive Memory Description: Intact Hallucinations: None Delusions: Not Present Thought Process: Intact Thought Content: positive for Intact and positive for Loose Associations Judgement: Fair Telehealth Telehealth Telehealth Platform: Other (please specify) (pj.) Location of provider rendering services: practice address Location of patient: address on file Patient Identification confirmed using: Name, : Yes Telehealth method: video Patient verbally consented to treatment: Yes Patient verbally consented to billing insurance company: Yes Patient informed of any privacy concerns related to visit: Yes Minutes spent on Phone/Video with Pt.: 26 Assessment and Plan Assessment & Plan (1) ADHD (attention deficit hyperactivity disorder), combined type: Status: Acute Code(s): F90.2 - Attention-deficit hyperactivity disorder, combined type (2) Major depressive disorder, recurrent, moderate: Status: Acute Code(s): F33.1 - Major depressive disorder, recurrent, moderate (3) SAMMY (generalized anxiety disorder): Status: Acute Code(s): F41.1 - Generalized anxiety disorder Plan trial reduction in remeron to 1/2 tab at bedtime continue duloxetine continue ritalin Counseling and coordination of Care Pt. Self Management counseling: Behavior activation and Problem solving Medication management counseling: Effectiveness, Side effects, Dosing range, Duration, Drug interaction and Adherence Diagnosis and Prognosis Counseling: Accuracy of diagnosis, Prognosis over time, Impact of diagnosis on life functions, Impact of family relationship, Problematic behaviors secondary to diagnosis and Adequacy of current interventions Details: I spent 35 minutes reviewing the record, seeing the patient and documenting in the medical record. Counseling provided to the patient/caregiver as outlined below. Addressed patient/caregiver concerns regarding current medication regime including effective adherence. Addressed patient/caregiver concerns regarding diagnosis and prognosis including accuracy of diagnosis, prognosis over time, impact of diagnosis. Addressed patient/caregiver concerns regarding impact of recent stressors. [facility] Medical History Nausea and vomiting in adult Acute respiratory disease Major depressive disorder, recurrent, severe with psychotic features Decreased hearing Tinnitus Reduced visual acuity Pyelonephritis (03/22/15) (08/04/19) Obesity (12/12/18) Migraine Menorrhagia Irritable bowel syndrome Insomnia Hiatal hernia Hemorrhoids Gastroesophageal reflux disease Fracture of hand (04/22/09) Female stress incontinence Blood in urine Severe carpal tunnel syndrome of right wrist Medical clearance for psychiatric admission Hypertriglyceridemia Positive Tinel's sign Positive Phalen maneuver Cervicalgia HTN (hypertension) Decreased hearing of both ears Environmental and seasonal allergies Tinnitus of both ears Knee pain Excessive daytime sleepiness Loud snoring Vitamin D deficiency Impaired fasting glucose Mixed dyslipidemia Morbid obesity Hiatal hernia with gastroesophageal reflux Family history of premature CAD Annual visit for general adult medical examination with abnormal findings Surgical History H/O endoscopy H/O wisdom tooth extraction Family History Father Substance use disorder Mental health disorder Alcoholism Myocardial infarction acute, Onset Age: 55 Depression Maternal Uncle Testicular cancer Social History Household Members: Family Household Members Other:: and 2 children Housing: House Do you presently have visiting nurse or other home services: No Alcohol intake: current Alcohol intake frequency: holidays/special occasions only Patient Tobacco Use Status: Never used Tobacco e-Cigarette/Vaping Use: Never Used Substance Use Type: Marijuana service: No Current occupational status: unemployed and other 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 family has moved around a lot due to pt grew up in [facility]. lived with both parents; after her father lost his job they all moved in with grandmother; family experienced severe poverty- very traumatic. no running water, no food, no electricity at times. no telephone, no flushing toilets no lights. Father became ETOHIC and massive heart attack at age 55. Pt has 3 siblings. Substance History: none Trauma History: childhood severe poverty Coding Level of Care Code Tele Est Pt Level 4 (67529) Diagnoses ADHD (attention deficit hyperactivity disorder), combined type F90.2 Major depressive disorder, recurrent, moderate F33.1 SAMMY (generalized anxiety disorder) F41.1
--- OUTSIDE RECORDS SUMMARY | 2024-09-29 16:35 | XMS_ITS | Data Portability ---
Author Organization [place] - [facility], [place] - [facility] - Address [address] [place] [address] Care Team Providers Care Medical Specialist Name Role Phone TREMAINE NINA Primary Care [...] 6-8 weeks. This visit was conducted via Lono website [employer] using both audio and video during the [...] This visit was conducted via telehealth website [employer] using both audio and video during the [...] This visit was conducted via telehealth website [employer] using both audio and video during the [...] mg capsule,del ayed release 2021 022 [id number], [address], [place], [address], 15:13:01 duloxetine 60 mg capsule,del ayed release 04/06/ 2022 04/06/2 022 [facility], [address], [place], [address], 2 15:12:56 hydroxyzine HCl 50 mg tablet 2021 022 [facility], [address], [place], [address], 2 15:12:57 hydroxyzine HCl 50 mg tablet 2020 021 [facility], [address], [place], [address], 15:27:21 duloxetine 30 mg capsule,del ayed release 2020 021 [facility], [address], [place], [address], 15:27:17 duloxetine 60 mg capsule,del ayed release 2020 021 [facility], [address], [place], [address], 15:27:17 Patient TargetsNo targets recorded. Patient InstructionsNo instructions recorded. Reason for Referral None Reported. Problems Name Problem SNOMED Code Status Onset Date Resolution Date Notes Provider Name and Address Organization Details Recorded Time Multiple environm ental allergie s Active scotty sepulveda [facility] 6 12:23:04 Irritabl e bowel syndrome 94678029 Active celiac disease Ab testing Neg 11/03; improved w/ Gluten free diet scotty sepulveda [facility] 6 12:23:04 Gastroes ophageal reflux disease 522814689 Active scotty sepulveda [facility] 6 12:23:04 Mixed anxiety and depressi ve disorder 926474031 Active hx of post depressi on and took lexapro but felt poor response , wellbutr in was very neg side effects (bad vivid dreams of her hurting her family); zoloft was very good response but had to stop when breast feeding bad w/d (didn't wean) scotty sepulveda [facility] 6 12:23:03 Migraine 98692887 [facility] 12:23:03 Hiatal hernia 57180606 [facility] 6 12:23:04 Hemorrho ids 99903559 Completed 12/11/2018 tx'd w/ anusol-H C Timbo Mckeon DO [address], [place], [address] , [facility] 9 17:20:55 Female stress incontin ence 80542370 Active Madelyn [facility] 7 18:34:40 Pyelonep hritis 29099241 Completed 201412/11/2018 tx'd w/ Levaquin Timbo Mckeon DO [address], [place], [address] , [place] [facility] 9 17:19:51 Insomnia 332110231 [facility] 6 12:23:03 Fracture of hand 35990345 Completed 200912/11/2018 Left Timbo Mckeon DO [address], [place], [address] , [place] [facility] 9 17:20:04 Tinnitus 39274675 [facility] 6 12:23:04 Decrease d hearing 230902583 Completed 12/11/2018 Timbo Mckeon DO [address], [place], [address] , [place] [facility] 9 17:19:28 Reduced visual acuity 71726131 Active scotty banda null, [place] - [facility] 6 12:23:04 Sensorin eural hearing loss of bilatera l ears 537768784 Active Asha Bradford [address], [place], [address] , [place] [facility] 6 13:11:25 Menorrha obi 497218944 Active Margy Becker MD [address], [place], [address] , [place] [facility] 7 22:56:04 Blood in urine 93877068 Completed 12/11/2018 Timbo Mckeon DO [address], [place], [address] , [place] [facility] 9 17:19:34 Obesity 507875876 Active 2018 Timbo Mckeon DO [address], [place], [address] , [place] [facility] 9 01:18:28 Pregnanc y 98673703 Completed 201903/16/2020 Aliyahjanet [place] null, [place] [facility] 0 12:25:25 Gestatio nal diabetes mellitus class A2 52950997 Active 2019 Aliyahjanet [place] null, [place] - [facility] 0 12:25:22 Gestatio nal diabetes mellitus class A2 95736131 Completed 2019 Aliyahjanet [place] null, [place] [facility] 0 12:25:22 Depressi ve disorder 02290118 Active 2020 Yaya Casanova DO [address], [place], [address] , [place] [facility] 1 15:54:10 Notes:hx plantar fasciitis; hx [...] Non-Stress Test completed Malka VANEGAS, Cali Carter [address], [place], [address], [facility] 02/25/2020 13:33:54 02/18/20 20 Non-Stress Test completed Cali Ace MD [address], [place], [address], [facility] 02/18/2020 15:49:47 02/11/20 20 Non-Stress Test completed Cali Ace MD [address], [place], [address], [facility] 02/11/2020 15:03:18 01/12/20 20 Non-Stress Test completed Cali Ace MD [address], [place], [address], [place] [facility] 01/12/2020 18:21:04 12/19/19 19 Date of Last Pap Smear completed Timbo Mckeon DO [address], [place], [address], [facility] 12/24/2018 14:45:47 06/30/19 17 Ortho Corticosteroid Injection completed Vy Feliciano [facility] 06/29/2016 12:26:26 06/29/19 17 Cystoscopy (female) completed Chuck VANEGAS, [address], [place], [address], [facility] 06/28/2016 12:41:47 06/14/19 17 Bladder Scan completed Chuck VANEGAS, [address], [place], [address], [facility] 06/14/2016 13:22:58 04/05/20 16 Tympanometry completed Asha Bradford [address], [place], [address], [facility] 04/05/2016 13:11:04 04/05/20 16 Audiogram.old completed Asha Bradford [address], [place], [address], [facility] 04/05/2016 13:11:04 11/21/19 15 Other completed Georgi Moctezuma MD [address], [place], [address], [facility] 01/13/2016 00:18:30 10/21/19 15 Other completed Georgi Moctezuma MD [address], [place], [address], [facility] 01/13/2016 00:18:30 04/22/19 00 [place] Teeth Removed completed Georgi Moctezuma MD [address], [place], [address], [facility] 01/12/2016 22:50:32 Oral surgery procedure completed Dena Argueta [facility] 04/06/2016 12:36:17 Imaging Results None recorded. Procedure Notes None recorded. Medical Equipment None Reported. Allergies Allergen ID Allergen Name Allergen Category Reaction Reaction Severity Criticality Documentation Date Start Date Code Code System Note Provider Name and Address Organization Details Recorded Time 808663 latex environme nt,medica tion hives moderate Not available 01/12/2016 42725 91 RxNorm Georgi Moctezuma MD [address], [place], [address], [facility] 6 22:23:54 017799 acetamino phen / hydrocodo ne medicatio n other moderate Not available 04/05/2016 30800 2 RxNorm facia l numbn ess scotty banda null, [facility] 6 12:23:03 810628 Wellbutri n medicatio n Not available Not available Not available 06/18/2016 12866 RxNorm vivid dream s/fri ghten ing ; used w/ post partu m alivia Moctezuma MD, Georgi Costa [address], [place], [address], [facility] 7 11:10:40 272240 adhesive tape environme nt,medica tion Not available Not available Not available 03/16/2020 32983 UNK Aliyah Julian null, [facility] 0 12:21:24 Medications Name Sig Start [...] e 137 mcg (0.1 %) nasal spray Campus 1 spray every day by intranas al [...] Not Available Not Available Not Available FreeStyle [place] Lite kit 03/16 completed Not Available Not [...] Status Never Smoker 12/11/18 Kathy Guallpa [facility], [place] - [facility] 12/11/2018 16:59:59 Do You Have An Advance Directive? No I Gave Her The Form For The Living Will And Health Power Of Stitching Machine Feeder Or Offbearer, She Does Want To Be Resuscitated. She [...] COVID-19 While That Person Was Ill? No [email or web address] Information not available 07/30/2019 Have You Been To An Area Known To Be High Risk For COVID-19? No [email or web address] Information not available 07/30/2019 What Type Of [...] not available 04/06/2016 Do You Have Any Caodaism Beliefs That May Impact Your Health Care Decisions? No Does Not Follow Any Roman Catholic Information not available 12/11/2018 Did You Hurt Yourself When You Fell In The Last Year? No 12/11/18 Mh Information not available 04/06/2016 Education: 12 Information not available 12/11/2018 Marital Status Informatio n not available 01/12/2016 What Was The Date Of Your Most Recent Tobacco Screening? 09/12/2020 [email or web address] Information not available 09/15/2020 Are You Sexually [...] is your level of alcohol consumption? None [email or web address] Information not available 10/27/2019 Do you or have you ever used smokeless tobacco? 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 [employer] [email or web address] Information not available 09/15/2020 Do you or [...] Details LastModified Time Father Myocardial infarction 55 [email or web address] Not available 04/25 18:44:02 Father Hypertensive disorder [email or web address] Not available 2016 18:44:02 Father Hyperlipidem ia [email or web address] Not available 2016 18:44:02 Paternal Aunt Malignant tumor of cervix [email or web address] Not available 2016 18:44:02 Paternal Aunt Dementia [email or web address] Not a vailable 04/25/2016 18:44:02 Mother Pyelonephrit [...] , PF 1 completed Maile sepulveda [facility] 03/15/2021 12:10:26 COVID-19, mRNA, LNP-S, PF, 30 mcg/0.3 mL dose 1 completed Savana sepulveda [facility] 08/30/2020 10:45:30 COVID-19, mRNA, LNP-S, PF, 30 mcg/0.3 mL dose 1 completed Savana sepulveda [facility] 08/30/2020 10:45:45 COVID-19, mRNA, LNP-S, PF, 30 mcg/0.3 mL dose 1 completed Maile sepulveda [facility] 03/15/2021 11:48:03 Influenza, split virus, trivalent, PF 8 cancelled patient objection Not Available [facility] 05/09/2019 02:33:30 Influenza, MDCK, quadrivalent , PF 8 completed Not Available [facility] 05/09/2019 03:23:32 Influenza, MDCK, quadrivalent , PF 9 completed Not Available [facility] 05/09/2019 03:01:50 Influenza, split virus, quadrivalent , PF 0 completed Savana sepulveda [facility] 01/05/2020 16:31:36 Tdap 3 completed Not Available [facility] 03/07/2020 09:20:47 Past Encounters Encounter ID Performer Location Encounter Start Date Encounter Closed Date Diagnosis/Indication Diagnosis SNOMED-CT Code Diagnosis ICD10 Code Diagnosis Note [id number] Rhianna VANEGAS, Georgi Costa [facility] [address],[place] [address] 01/12/2016 10:23:10 01/13/2016 12:09:34 Adult health examination 735090004 Z00.00 Hematology screening test 106909734 Z13.0 Hyperlipid emia screening 401100975 Z13.220 Endocrine/ metabolic screening 453768449 Z13.228 Mixed anxi ety and depressive disorder 343416767 F41.8 Tinnitus 90170975 H93.13 Decreased hearing 969412 001 H91.93 Reduced visual acuity 13 820399 H54.7 Contraception care 64260 5005 Z30.40 [id number] Lv lucas MD, Chandrakant Shipley [facility] [address] [place] [address], [address] [place] [address] 04/05/2016 11:57:03 04/05/2016 13:17:18 Tinnitus 57049102 H93.13 At this time the patient has bilateral tinnitus, most likely due to her bilateral hearing loss. Please see plan as described above. FG Allergic r hinitis caused by pollen 11237074 J30.1 At this time the patient has [...] Sensorineu ral hearing loss of bilateral ears 202214384 H90.3 At this time the patient comes [...] will follow up as needed. FG Dizziness 269521543 R42 At this time the patient also complains of an off balance feeling with walking up and down stairs, but does not have any other problems. We will see if this improves on nasal steroid spray. She had no further questions and will follow up as needed for now. FG [id number] Asha Bradford [facility] [address] [place] [address],[address] [place] [address] 04/05/2016 13:09:55 04/05/2016 13:12:09 Sensorineural hearing loss of bilateral ears 425140605 H90.3 [id number] Eugenio VANEGAS, Margy Valdivia [facility] [employer] [place] POS [address] [place] [place] [address],[place] [address] [facility] [place] [address] 04/06/2016 12:09:16 04/06/2016 13:47:10 Gynecologic examination 08620545 Z01.419 Screening for malignant neoplasm of cervix 907860607 Z12.4 Menorrhagia 161787809 N9 2.0 History of urinary tract infection 5755302660 107 Z87.440 Surveillan ce of contraception 114528992 Z30.40 [id number] Eugenio VANEGAS, Margy Valdivia [facility] - [employer] [place] POS [address] [place] [address],[address] [place] [address] 04/25/2016 17:48:13 04/25/2016 19:53:53 Menorrhagia 697072026 N92.0 Blood in urine 28274396 R31.9 [id number] Rhianna VANEGAS, Georgi Costa [facility] [place] [facility] POS [address],[facility] [place] [address] 05/08/2016 10:01:31 05/08/2016 12:08:23 Migraine 34583917 G43.909 Mixed anxi ety and depressive disorder 936591431 F41.8 Carpal davonte simon syndrome 05348675 G56.00 Insomnia 230839916 G47.0 0 Hand pain 29060761 M79.6 42 Vitamin D deficiency 347 76011 E55.9 [id number] Chuck VANEGAS, [facility] - UROLOGY [facility] POS [address] [place] [address] 06/14/2016 12:22:40 06/14/2016 14:22:12 Microscopic hematuria 387056933 R31.21 she had 2-5 rbc on last ua done 04/26.17-has had full workup done in the past by another urologist and was negative but it was a while agovijay send urine for c/s and cytology-f ollow up for cystoscopy in office Renal colic 8500437 N23 she is having bilateral flank pain-previ ous urologist had checked a renal us but this may not tile 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-jc l do ct scan for stone search prior to cystoscopy [id number] Rhianna VANEGAS, Georgi Costa [facility] AM POS [address],[place] [address] 06/18/2016 10:33:06 06/18/2016 12:04:21 Mixed anxiety and depressive disorder 623834762 F41.8 [id number] Chuck VANEGAS, [facility] - UROLOGY [facility] POS [address] [place] [address] 06/28/2016 12:09:59 06/28/2016 12:45:15 Blood in urine 83919484 R31.9 her cystoscopy shows mild chronic bullous cystitis and a diverticul um, mild grade 1 trabeculat ions-will start on suppressiv e dose macrodanti n for one monthfollo w up in 3mos [id number] Donnell VANEGAS, Luis Soliz [facility] - ORTHOPEDI CSURGERY [facility] POS [address] [place] [address] 06/29/2016 11:24:40 07/13/2016 10:46:48 Hand pain 43354082 M79.643 Carpal davonte simon syndrome 80238099 G56.01 G56.02 [id number] Donnell VANEGAS, Luis Soliz [facility] [place] POS [address] [facility] [place] [address] 07/13/2016 11:07:42 07/13/2016 13:24:50 Pain of wrist region 74343076 M25.531 Hand pain 60043129 M79.6 43 Carpal davonte simon syndrome 76814636 G56.01 G56.02 [id number] Rhianna VANEGAS, Georgi Costa [facility] [place] [facility] POS [address],[place] [address] 07/16/2016 10:58:41 07/16/2016 11:42:57 Mixed anxiety and depressive disorder 752913282 F41.8 [id number] Donnell VANEGAS, Luis Soliz [facility] [place] [address] [place] [address] 08/13/2016 11:24:07 08/13/2016 12:23:07 Hand pain 19723445 M79.641 Pain of wrist region 566 11743 M25.531 Carpal davonte simon syndrome 66861259 G56.01 G56.02 [id number] Donnell VANEGAS, Luis Reynaoli [facility] [place] [address] [place] [address] 09/20/2016 11:45:56 09/20/2016 14:44:21 Pain of wrist region 77985815 M25.531 M25.532 Hand pain 00700310 M79.6 41 Carpal davonte simon syndrome 34915006 G56.01 G56.02 [id number] Chuck VANEGAS, [facility] [place] POS [address] [facility] [address] 10/04/2016 11:54:33 10/04/2016 12:31:12 Blood in urine 36053532 R31.9 she had history of microhemat uriawas given 3mos of suppressiv e dose abxhas not seen any blood in urinewill check ua/culture Bladder mu scle dysfunction - overactive 069122415 N32.81 she goes to bathroom every 2 hours during day and 2 times at night, occ urge incontinen cetrial of myrbetriq Female str ess incontinence 32141276 N39.3 -she does not require pads for the problemonl y occurs occasional ly with sneezingdi scussed treatment options- e will observe for now [id number] Donnell VANEGAS, Luis Soliz [facility] [place] [address] [place] [address] 10/08/2016 09:47:26 10/08/2016 10:46:23 Pain of wrist region 79839637 M25.531 M25.532 Hand pain 51574114 M79.6 41 Carpal davonte simon syndrome 65647288 G56.01 G56.02 [id number] Donnell VANEGAS, Luis Soliz [facility] - [facility]OP[facility] CSUR[facility]ERY [facility] POS [address] [facility] [address] [place] [address] 11/09/2016 10:50:45 11/09/2016 12:33:48 Pain of wrist region 21302942 M25.531 M25.532 Neck pain 23585915 M54.2 Hand pain 80812079 M79.6 41 Carpal davonte simon syndrome 52853707 G56.01 G56.02 [id number] Rhianna VANEGAS, Georgi [facility] [address],[place] [address] 11/21/2016 10:22:19 12/11/2016 16:16:59 Low back pain 956208873 M54.5 Snoring 19228642 R06.83 [id number] Georgi Moctezuma MD AM POS [address],[place] [address] 01/10/2017 16:20:44 01/10/2017 17:19:55 Pain in left knee 9824698447 51908 M25.562 Depressive disorder 3548 9007 F32.89 Fatigue 06861013 R53.83 [id number] Chuck VANEGAS, Vibha [facility] - UROLOGY [facility] [address] [place] [address] 01/31/2017 11:27:16 01/31/2017 12:47:19 Bladder muscle dysfunction - overactive 653426684 N32.81 she goes to bathroom every 2 hours during day and 2 times at night, occ urge incontinen cemyrbetri q didn't help and wasn't covered Female str ess incontinence 99656854 N39.3 she is more bothered by it latelywoul d like to try physical therapyref erral to at [facility] given [id number] Tete Brian DO [facility] Maddie [facility] AM#1 POS [address] [place] [address] 03/08/2017 11:55:53 03/13/2017 00:11:33 Fatigue 82731046 R53.83 --concerns for fatigue and insomnia. Have discussed sleep hygeine techniques with patient and reviewed the sleep study with her. Discussed weight loss and controllin g nasal congestion .--Pt will attempt these and follow up in the next 3 months. Allergic rhinitis 865061 04 J30.9 --nasal congestion Obesity 187689288 E66.9 --discusse d keeping track of her calories and aiming to eat about 500 calories less then what she normally eats.--Pt should f/u in 3 months on weight loss. [id number] Tete Brian DO [facility] Maddie [facility] AM[facility]1 [address] [place] [address] 06/12/2017 10:00:03 06/12/2017 10:41:36 Active or passive immunization 110954963 Z23 Fatigue 85059309 R53.83 --cont use of breathe right strips and use nasal steroid. Allergic rhinitis 703731 04 J30.9 --nasal congestion continued. Increase cetirizine to 10 mg daily, but go back to 5 mg if she feels overly fatigued. Cont fluticason e and also start azelastine daily. Gastroesop hageal reflux disease 899726230 K21.9 [id number] Tete Brian DO [facility] AM#[address] [place] [address] 08/12/2017 10:54:36 08/12/2017 11:48:10 Obesity 968336803 E66.9 --discusse d weight loss and diet again Insomnia 136512297 G47.0 0 --pt instructed to take amitriptyl ine daily.--Co unselled on possible side effects. RTC if insomnia worsens Neck pain 79555423 M54.2 --negative adsons test, negative spurling sign. Muscle spasm in b/l neck.--Giv en exercises for neck. OTC tylenol and ibuprofen. RTC as needed. Migraine 98221841 G43.90 9 [id number] RocTete valero DO [facility] AM#1 POS [address] [place] [address] 02/11/2018 10:03:22 02/11/2018 10:50:04 Administration of influenza vaccine 70631345 Z23 Migraine 20777654 G43.90 9 --fioricet , amitriptyl ine and topiramate Insomnia 185222730 G47.0 0 --pt instructed to take amitriptyl ine daily.--Co unselled on possible side effects. RTC if insomnia worsens Environmental allergy 42 5203431 T78.49XA [id number] Nitin Laguerre MD [facility] AM#[address] POS [address] [place] [address] 04/02/2018 14:24:14 04/02/2018 15:10:58 Adult health examination 428643605 Z00.00 Migraine 70834115 G43.90 9 [id number] Timbo Mckeon DO [facility] POS [address] [facility] [place] [address] 12/11/2018 16:42:55 12/11/2018 17:56:44 Bladder muscle dysfunction - overactive 905715751 N32.81 she has urinary incontinen ce and requesting a refill of the detrol, this has helped her in the past Body mass index 30+ - obesity 743030723 Z68.39 The patient's current weight is 209# with a height of 5' 1.25 and a correspond ing BMI (Body Mass Index) of 39.2. The medical definition of Obesity is a BMI greater than 30. Your [place] Body Weight is approximat malinda about 116#. [...] migraine prophylaxi s and weight loss. Migraine 02439274 G43.90 9 see the above plan [id number] Timbo Mckeon DO [facility]#1 POS [address] [facility] [place] [address] 12/18/2018 09:57:19 12/18/2018 11:37:10 Adult health examination 384670906 Z00.00 Female Complete Physical Exam: I discussed [...] exercise, diet. Achieve/ma intain ideal body weight. [place] body weight is about 116 pounds,Adv anced directives : I gave the patient the form for LIVING WILL and health power of document review attorney from the [place] [employer], the patient does want to be resuscitat ed but the patient does not want to be maintained on chronic life support if there is little hope of meaningful recovery. Active or passive immunization 006605444 Z23 Flu vaccine today, She is up to date with the Tdap Body mass index 30+ - obesity 300397592 Z68.38 The patient's current weight is 206.75# with a height of 5' 1.25 and a correspond ing BMI (Body Mass Index) of 38.7. The medical definition of Obesity is a BMI greater than 30. Your [place] Body Weight is approximat malinda about 116#. A reduced calorie, reduced carbohydra te weight reduction diet as well as increased activity.. She has lost about 3# since the last visit Hyperhidro sis of axilla 020446270 L74.510 Drysol Jessie.ly to axilla once daily at first and then about three times per week, do not apply to fresh shaven skin. Elevated blood-pressure reading without diagnosis of hypertension 549359924 R03.0 I encouraged the patient to check the blood pressure and log the results. Please follow a reduced sodium diet and maintain/a chieve ideal body weight. [id number] Malka VANEGAS, Cali Carter [facility] - NITRIC [employer]ID [employer] [place] POS [address] [place] [address] 07/30/2019 10:48:16 07/30/2019 12:44:41 test positive 094151335 Z32.01 Mild hyper emesis gravidarum 67164481 O21.0 Reviewed and hyperemesi s with patient. Reviewed diet at length. Questions answered. Recommend consider hold PNV. Start vitamin B6, unisom. Ob dating u/s in 1 week. f/u 1wk. Amenorrhea 96198816 N91. 2 Reviewed findings, positive test. [id number] Malka VANEGAS, Cali Carter [facility] - [employer] [place] [facility] [address] [place] [address] 08/04/2019 11:31:16 08/04/2019 13:34:46 Disorder of menstruation 296863720 N92.6 Ob u/s reviewed, show viable iup consistent with LMP dating. Reviewed with patient. Routine an tenatal care 984304797 Z34.81 Z3A.08 Venereal d isease screening 506609344 Z11.3 Advanced m aternal age 662684057 O09.899 [id number] Malka VANEGAS, [facility] - NITRIC ACID [employer] [place] POS [address] [place] [address] 7 08/18/2019 11:25:44 08/18/2019 13:21:34 Advanced maternal age 617006890 O09.899 Routine an tenatal care 075331178 Z34.81 Z3A.08 Mild hyper emesis gravidarum 05864959 O21.0 mostly resolved [id number] Malka VANEGAS, [facility] - NITRIC [employer]ID [employer] [place] POS [address] [place] [address]17[address] 7 09/22/2019 13:57:14 09/22/2019 14:40:34 Multigravida of advanced maternal age 511681920 O09.522 Z3A.15 [id number] Malka VANEGAS, [facility] [address] [place] [address] 7 10/20/2019 13:50:29 10/20/2019 15:17:10 Multigravida of advanced maternal age 272108141 O09.523 Z3A.19 [id number] Primitivo VANEGAS, Dickson [facility] - MATERNAL [employer] [facility] POS [address] [place] [address] 5 10/27/2019 10:57:43 10/27/2019 14:41:15 Advanced maternal age 347158499 O09.899 expo sure to alcohol 738096439 O35.4XX9 expo sure to drug 187613561 O35.5XX9 Tolterodin e exposure [id number] Malka VANEGAS, [facility] - [employer] [place] POS [address] [place] [address]465 7 11/24/2019 14:02:44 11/24/2019 15:47:27 Advanced maternal age 509246920 O09.899 Z3A.24 [id number] Malka VANEGAS, [facility] - NITRIC ACID [employer] [place] POS [address] [place] [id number] 7 12/08/2019 13:27:12 12/08/2019 15:22:20 Gestational diabetes mellitus 97433104 O24.410 [id number] Erick VANEGAS, Thee Núñez [facility] - [place] [facility] [place] [facility] [address] [place] [address] 12/17/2019 17:23:54 12/17/2019 17:24:51 [id number] Dickson Langford MD - [place] [employer] [facility] POS [address] [place] [address] 12/22/2019 08:47:44 12/22/2019 11:38:14 Glucose tolerance test outside reference range 428736890 R73.09 Gestationa l diabetes mellitus 85893490 O24.410 [id number] Malka VANEGAS, Cali Carter [facility] - [employer] [place] [facility] [address] [place] [address] 12/22/2019 15:50:31 12/23/2019 10:14:48 Gestational diabetes mellitus 90660838 O24.410 Advanced m aternal age 890674651 O09.899 Z3A.24 High risk care 930435936 O09.93 [id number] Malka VANEGAS, Cali Carter [facility] - NIT[employer] ACID [employer] [place] [facility] [address] [place] [address] 01/05/2020 15:26:25 01/06/2020 12:30:32 Advanced maternal age 652030014 O09.899 Z3A.24 Gestationa l diabetes mellitus 56470805 O24.410 High risk care 851528220 O09.93 [id number] Erick VANEGAS, Thee Núñez [facility] - [place] [facility] [place] [facility]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 Glucose Ketones Leukocytes Nitrite Labor Signs Protein Cervic Dilation Cervic Effacement Cervic Station trace none neg Type Weight in lbs Pre/Post Dialysis Refused With clothes 205.377651947107 BP Diastolic BP Location Tested BP Systolic BP Type 80 L arm 132 sitting Fetus Heart Rate Present A 150 Fetus Movement Comments ob/fu - nausea has decreased . c/o pelvic pain when standing or shifting side to side in bed. Reviewed Webb neg. No other c/o. PTL signs and symptoms reviewed. Sched MFM u/s. f/u 4wk. Flowsheet Date 10/20/2019 Jackson Score Blood Edema Fundus Height Fundus Units Glucose Ketones Leukocytes Nitrite Labor Signs Protein Cervic Dilation Cervic Effacement Cervic Station 20 none neg Type Weight in lbs Pre/Post Dialysis Refused With clothes 208.80697360443 BP Diastolic BP Location Tested BP Systolic [...] in lbs Pre/Post Dialysis Refused With clothes 206.886103372562 BP Diastolic BP Location Tested BP Systolic BP Type 72 L arm 124 sitting Fetus Heart Rate Present A 150 Fetus Movement A Yes Comments Glucose and cbc labs today. Ingrown hair has been having some discomfort. Exam neg. 1hr gluc today. Reviewed [facility] u/s. PTL signs and symptoms reviewed. f/u 2wk. Flowsheet Date 12/08/2019 Jackson Score Blood Edema Fundus Height Fundus Units Glucose Ketones Leukocytes Nitrite Labor Signs Protein Cervic Dilation Cervic Effacement Cervic Station none neg Type Weight in lbs Pre/Post Dialysis Refused With clothes 208.626910743353 BP Diastolic BP Location Tested BP Systolic BP Type 70 L arm 118 sitting Fetus Heart Rate Present A 150 Fetus Movement A Yes Comments ob fu. No complains. Reviewe d 3hr gtt pos. refer to [facility], dietitian. Send glucometer, chem strips, lancets. [...] in lbs Pre/Post Dialysis Refused With clothes 207.244094953648 BP Diastolic BP Location Tested BP Systolic BP Type 72 L arm 124 sitting Fetus Heart Rate Present A 145 Fetus Movement A Yes Comments Pt c/o pain on hips when sle eping. Occ tightening muscle on ankle and foot. Denies other c/o. MFM u/s reviewed. 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 PTL signs and symptoms reviewed. f/u 2wk. Flowsheet Date 01/05/2020 Jackson Score Blood Edema Fundus Height Fundus Units Glucose Ketones Leukocytes Nitrite Labor Signs Protein Cervic Dilation Cervic Effacement Cervic Station 32 none neg Type Weight in lbs Pre/Post Dialysis Refused With clothes 205.468472535600 BP Diastolic BP Location Tested BP Systolic [...] in lbs Pre/Post Dialysis Refused With clothes 205.435039321371 BP Diastolic BP Location Tested BP Systolic [...] in lbs Pre/Post Dialysis Refused With clothes 205.858568713439 BP Diastolic BP Location Tested BP Systolic [...] in lbs Pre/Post Dialysis Refused With clothes 204.781116963741 BP Diastolic BP Location Tested BP Systolic BP Type 70 R arm 118 sitting Fetus Heart Rate Present A 140 Fetus Movement A Yes Comments ob/fu -NST today - c/o abdom inal tightening. NST reactive, BS controlled monitored by [facility]. She states dizziness has improved with [...] in lbs Pre/Post Dialysis Refused With clothes 205.432543534880 BP Diastolic BP Location Tested BP Systolic BP Type 76 L arm 124 sitting Fetus Heart Rate Present A 140 Fetus Movement A Yes Comments ob/fu -NST today - Pt was se en by [facility] on Saturday02/09/2020 - Covid 19 test [...] in lbs Pre/Post Dialysis Refused With clothes 205.105783277514 BP Diastolic BP Location Tested BP Systolic [...] in lbs Pre/Post Dialysis Refused With clothes 201.039747769718 BP Diastolic BP Location Tested BP Systolic BP Type 80 L arm 120 sitting Fetus Heart Rate Present A 145 Fetus Movement A Yes Comments ob/fu - Pt was at [facility] on Saturday due to having contractions- [...] in lbs Pre/Post Dialysis Refused With clothes 192.094055722916 BP Diastolic BP Location Tested BP Systolic [...]
== END 2024-09-29 13:57 | disposition home or self-care (01) ==
LOC: HO.HOP 13:56
PROVIDERS: PCP Internal Medicine; Visit Provider Clinical Nurse Specialist Psychiatric/Mental Health
DX: F33.1 Major depressive disorder, recurrent, moderate (principal); F90.2 Attention-deficit hyperactivity disorder, combined type; F41.1 Generalized anxiety disorder
CPT/HCPCS: 99214

== ENCOUNTER → 2024-09-29 13:56 | Outpatient (BNVA) | payer OTHER, SELFPAY | PROVIDERS: PCP Internal Medicine; Visit Provider Clinical Nurse Specialist Psychiatric/Mental Health | DX: Z13.89 Encounter for screening for other disorder (principal) ==

== ENCOUNTER 2024-10-27 13:53 | Outpatient (AMB) | payer OTHER, SELFPAY ==
--- NOTE | 2024-10-27 14:12 | A.OFFPSYCH_ITS ---
Intake Intake Visit Reasons: follow up Allergies latex Adverse Reaction (Mild, Verified 09/21/24 13:55) hives cefuroxime axetil Adverse Reaction (Uncoded 09/21/24 13:55) rash Medication List - Last Reconciled 10/27/24 by Lynn Kemp APRN cholecalciferol (vitamin D3) 125 mcg PO DAILY duloxetine 90 mg (3 x 30 mg) PO DAILY 30 days hydroxyzine HCl 25 mg PO TID PRN lisinopril-hydrochlorothiazide 10-12.5 mg 1 tab PO DAILY magnesium oxide 400 mg PO DAILY 30 days methylphenidate HCl ER (Concerta) 27 mg PO DAILY mirtazapine 7.5 mg PO BEDTIME 30 days Myrbetriq ER (mirabegron) 50 mg PO DAILY 90 days NS omega 2-erz-tqf-fish oil 100-160-1,000 mg (Fish Oil) caps PO prazosin 2 mg PO BEDTIME 30 days solifenacin (Vesicare) 5 mg PO DAILY 90 days HPI- Psychiatric Chief Complaint: follow up HPI Narrative: pt here for follow up re: mood, anxiety, and ADHD. Pt reports mood stable. She feel the concerta is helpful; she is sleeping better; pt is more anxious about her family and their health/safety; she is staying active and busy with projects. Pt is expressing hope for future; she denies SI or HI Past Psychiatric History: outpt tx since age 22. No IPLOC PAST MEDICTIONS: lexapro- increased anger wellbutrin- very negative/angry zoloft- woorked first time took - did not work on retrial prozac- ok for a bit and then stopped working effexor- excessive weight gain Subjective Subjective Subjective Medication Compliance: Yes Side effects from medications: No Review of Systems Medical Review of Systems: unchanged Mental Status Exam Mental Status Exam Patient Appearance: Well Grooomed Patient Orientation: Person, Place, Time and Situation Level of Consciousness: Awake Patient Behavior: Appropriate Mood Description: Cheerful and Anxious Affect Description: Cheerful and Anxious Patient Cognition Impaired: No Ability to Follow Directions: Good Speech Pattern: Clear and Excessive Memory Description: Intact Hallucinations: None Delusions: Not Present Thought Process: Intact Thought Content: positive for Intact and positive for Loose Associations Judgement: Fair Assessment and Plan Assessment & Plan (1) Major depressive disorder, recurrent, moderate: Status: Acute Code(s): F33.1 - Major depressive disorder, recurrent, moderate (2) SAMMY (generalized anxiety disorder): Status: Acute Code(s): F41.1 - Generalized anxiety disorder (3) ADHD (attention deficit hyperactivity disorder), combined type: Status: Acute Code(s): F90.2 - Attention-deficit hyperactivity disorder, combined type Plan increase remeron to 1 tab at bedtime continue duloxetine continue concerta and prazosin Medications: Refilled hydroxyzine HCl 25 mg PO TID PRN 90 tabs 1RF itching mirtazapine 7.5 mg PO BEDTIME 30 tabs 2RF 30 days prazosin 2 mg PO BEDTIME 30 caps 2RF 30 days duloxetine 90 mg (3 x 30 mg) PO DAILY 90 caps 2RF 30 days methylphenidate HCl ER (Concerta) Partial Fill upon patient request. 27 mg PO DAILY 30 tabs 0RF Counseling and coordination of Care Pt. Self Management counseling: Behavior activation and Problem solving Medication management counseling: Effectiveness, Side effects, Dosing range, Duration, Drug interaction and Adherence Diagnosis and Prognosis Counseling: Accuracy of diagnosis, Prognosis over time, Impact of diagnosis on life functions, Impact of family relationship, Problematic behaviors secondary to diagnosis and Adequacy of current interventions Details: I spent 35 minutes reviewing the record, seeing the patient and documenting in the medical record. Counseling provided to the patient/caregiver as outlined below. Addressed patient/caregiver concerns regarding current medication regime including effective adherence. Addressed patient/caregiver concerns regarding diagnosis and prognosis including accuracy of diagnosis, prognosis over time, impact of diagnosis. Addressed patient/caregiver concerns regarding impact of recent stressors. [facility] Medical History Nausea and vomiting in adult Acute respiratory disease Major depressive disorder, recurrent, severe with psychotic features Decreased hearing Tinnitus Reduced visual acuity Pyelonephritis (03/22/15) (08/04/19) Obesity (12/12/18) Migraine Menorrhagia Irritable bowel syndrome Insomnia Hiatal hernia Hemorrhoids Gastroesophageal reflux disease Fracture of hand (04/22/09) Female stress incontinence Blood in urine Severe carpal tunnel syndrome of right wrist Medical clearance for psychiatric admission Hypertriglyceridemia Positive Tinel's sign Positive Phalen maneuver Cervicalgia HTN (hypertension) Decreased hearing of both ears Environmental and seasonal allergies Tinnitus of both ears Knee pain Excessive daytime sleepiness Loud snoring Vitamin D deficiency Impaired fasting glucose Mixed dyslipidemia Morbid obesity Hiatal hernia with gastroesophageal reflux Family history of premature CAD Annual visit for general adult medical examination with abnormal findings Surgical History H/O endoscopy H/O wisdom tooth extraction Family History Father Substance use disorder Mental health disorder Alcoholism Myocardial infarction acute, Onset Age: 55 Depression Maternal Uncle Testicular cancer Social History Household Members: Family Household Members Other:: and 2 children Housing: House Do you presently have visiting nurse or other home services: No Alcohol intake: current Alcohol intake frequency: holidays/special occasions only Patient Tobacco Use Status: Never used Tobacco e-Cigarette/Vaping Use: Never Used Substance Use Type: Marijuana service: No Current occupational status: unemployed and other 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 family has moved around a lot due to pt grew up in [place]. lived with both parents; after her father lost his job they all moved in with grandmother; family experienced severe poverty- very traumatic. no running water, no food, no electricity at times. no telephone, no flushing toilets no lights. Father became ETOHIC and massive heart attack at age 55. Pt has 3 siblings. Substance History: none Trauma History: childhood severe poverty Coding Level of Care Code Est Pt Level 4 (31764) Diagnoses Major depressive disorder, recurrent, moderate F33.1 SAMMY (generalized anxiety disorder) F41.1 ADHD (attention deficit hyperactivity disorder), combined type F90.2
--- OUTSIDE RECORDS SUMMARY | 2024-10-27 14:42 | XMS_ITS | Continuity of Care Document ---
Author Name [facility] Organization [facility] Care Team Providers Care Aquatics Assistant Department Head Name Role Phone [facility] Unavailable Unavailable Medications Combined list of outpatient medications from Department of Defense and Veterans Affairs facilities.Medications provided include 1) outpatient medications from the last 15 months, and 2) patient-reported medications. Medication Details Route Status Patient Instructions Prescription Expires Prescription Number Last Dispense Date Ordering Provider Order Date Order Qty Source DIAZEPAM (DIAZEPAM), 5MG, TABLET, ORAL, IVAX PHARMACEUT, 100 ea. BOTTLE Active [id number] 2023 10 Pharmac y Data Transac tion Service Facilit y LIDOCAINE (lidocaine) , 5 %, ADH. PATCH, TOPICAL, AMNEAL PHARMACE, 30 ea. BOX Active [id number] 2023 30 Pharmac y Data Transac tion Service Facilit y LISINOPRIL- HCTZ (LISINOPRIL /HYDROCHLOR OTHIAZIDE), 10-12.5MG, TABLET, ORAL, LUPIN PHARMACEU, 100 ea. BOTTLE Active [id number] 2023 30 Pharmac y Data Transac tion Service Facilit y LISINOPRIL- HCTZ (LISINOPRIL /HYDROCHLOR OTHIAZIDE), 10-12.5MG, TABLET, ORAL, LUPIN PHARMACEU, 100 ea. BOTTLE Active [id number] 2023 30 Pharmac y Data Transac [...] CTR HYDROCODONE Drug allergy (disorder) active 0 [facility] LATEX GLOVE Propensity to adverse reactions to drug (finding) active 0 [facility] C[facility] VICODIN Propensity to adverse reactions to drug (finding) active 0 ADE RAMONA CORE[facility] Immunizations Combined list of available immunizations from the Department of Defense and Veterans Affairs facilities. Immunization Series Date Given Administered By Site Reaction Lot Number CVX Code Drug Drill Foreman Status Comments Source COVID-19, mRNA, LNP-S, PF, 30 mcg/0.3 mL dose 2020 [employer] (PFR) Not Given COVID-19, mRNA, LNP-S, PF, 30 mcg/0.3 mL dose DoD COVID-19, mRNA, LNP-S, PF, 30 mcg/0.3 mL dose 2020 GLUSHAK, [employer] (PFR) Not Given COVID-19, mRNA, LNP-S, PF, 30 mcg/0.3 mL dose DoD COVID-19, mRNA, LNP-S, PF, 30 mcg/0.3 mL dose 2020 [employer] (PFR) Not Given COVID-19, mRNA, LNP-S, PF, 30 mcg/0.3 mL dose DoD Social History Combined list of available smoking, tobacco, and other social history from Department of Defense and Veterans Affairs facilities. Social History Type Response Date Comment Sour e This section is an empty social history section. [facility]
--- OUTSIDE RECORDS SUMMARY | 2024-10-27 14:44 | XMS_ITS | Data Portability ---
Author Organization [facility], [facility] Address [address] [place] [address] Care Team Providers Care Timber Inspector Name Role Phone Elizabeth Brunsonnn Primary Care Provider Unavailericka e Assessment No assessment recorded. Plan of Treatment Reminders Order Date Submit Date Provider Name Organization Details Last Modified By Last Modified Time Details Appointments None record ed. Lab None record ed. Referral None record ed. Procedures None record ed. Surgeries None record ed. Imaging None record ed. MedicationOrders None record ed. VaccineOrders None record ed. Patient TargetsNo targets recorded. Patient InstructionsNo instructions recorded. Reason for Referral None Reported. Problems Name Problem SNOMED Code Status Onset Date Resolution Date Notes Provider Name and Address Organization Details Recorded Time Multiple environm ental allergie s Active scotty sepulveda, [facility] 6 12:23:04 Irritabl e bowel syndrome 67355692 Active celiac disease Ab testing Neg 11/03; improved w/ Gluten free diet scotty sepulveda [facility] 6 12:23:04 Gastroes ophageal reflux disease 294533539 Active scotty sepulveda [facility] 6 12:23:04 Mixed anxiety and depressi ve disorder 818986213 Active hx of post depressi on and took lexapro but felt poor response , wellbutr in was very neg side effects (bad vivid dreams of her hurting her family); zoloft was very good response but had to stop when breast feeding bad w/d (didn't wean) scotty sepulveda [facility] 6 12:23:03 Migraine 44462489 [facility] 12:[facility]03 Hiatal hernia 04391381 [facility] 6 12:23:04 Hemorrho ids 24453012 Completed 12/11/2018 tx'd w/ anusol-H Timbo Loza DO [address], [place], [address] , [facility] 9 17:20:55 Female stress incontin ence 38852363 [facility] 7 18:34:40 Pyelonep hritis 64192010 Completed 201412/11/2018 tx'd w/ Levaquin Timbo Mckeon DO [address], [place], [address] , [facility] 9 17:19:51 Insomnia 528955480 [facility] 6 12:23:03 Fracture of hand 15954578 Completed 200912/11/2018 Left Timbo Mckeon DO [address], [place], [address] , [place] [facility] 9 17:20:04 Tinnitus 35953896 [facility] 6 12:23:04 Decrease d hearing 377798577 Completed 12/11/2018 Timbo Mckeon DO [address], [place], [address] , [facility] 9 17:19:28 Reduced visual acuity 56034221 Active scotty banda null, [place] [facility] 6 12:23:04 Sensorin eural hearing loss of bilatera l ears 440716970 Active Asha Bradford [address], [place], [address] , [place] [facility] 6 13:11:25 Menorrha obi 160123713 Active Margy Becker MD [address], [place], [address] , [place] [facility] 7 22:56:04 Blood in urine 43491903 Completed 12/11/2018 Timbo Mckeon DO [address], [place], [address] , [place] [facility] 9 17:19:34 Obesity 082449849 Active 2018 Timbo Mckeon DO [address], [place], [address] , [place] [facility] 9 01:18:28 Pregnanc y 53991734 Completed 201903/16/2020 Aliyah Julian null, [place] - [facility] 0 12:25:25 Gestatio nal diabetes mellitus class A2 91623980 Active 2019 Aliyah Whitehead null, [place] - [facility] 0 12:25:22 Gestatio nal diabetes mellitus class A2 51796362 Completed 2019 Aliyahjanet Whitehead null, [place] - [facility] 0 12:25:22 Depressi ve disorder 20730442 Active 2020 Yaya Casanova DO [address], [place], [address] , [place] [facility] 1 15:54:10 Notes:hx plantar fasciitis; hx L. [...] Non-Stress Test completed Malka VANEGAS, [address], [place], [address], [facility] 02/25/2020 13:33:54 02/18/20 20 Non-Stress Test completed Cali Ace MD [facility] [address], [place], [address], [facility] 02/18/2020 15:49:47 02/11/20 20 Non-Stress Test completed Cali Ace MD [facility] [employer] [facility],[address], [place], [address], [facility] 02/11/2020 15:03:18 01/12/20 20 Non-Stress Test completed Cali Ace MD [address] [place], [place] [address] [facility],[address], [place], [address], [facility] 01/12/2020 18:21:04 12/19/19 19 Date of Last Pap Smear completed Timbo Mckeon DO [address] [place], [place] [address] [facility],[address], [place], [address], [facility] 12/24/2018 14:45:47 06/30/19 17 Ortho Corticosteroid Injection completed Vy Feliciano [facility] 06/29/2016 12:26:26 06/29/19 17 Cystoscopy (female) completed Chuck VANEGAS, Salsify [address] [facility],[address], [place], [address], [facility] 06/28/2016 12:41:47 06/14/19 17 Bladder Scan completed Chuck VANEGAS, [address] [place] [address],[address], [place], [address], [facility] 06/14/2016 13:22:58 04/05/20 16 Tympanometry completed Asha Bradford [address], [place], [address], [facility] 04/05/2016 13:11:04 04/05/20 16 Audiogram.old completed Asha Bradford [address] [facility],[address], [place], [address], [facility] 04/05/2016 13:11:04 11/21/19 15 Other completed Georgi Moctezuma MD [address] [facility],[address], [place], [address], [facility] 01/13/2016 00:18:30 10/21/19 15 Other completed Georgi Moctezuma MD [address] [facility],[address], [place], [address], [facility] 01/13/2016 00:18:30 04/22/19 00 Whitestone Teeth Removed completed Georgi Moctezuma MD [address] [facility],[address], [place], [address], [facility] 01/12/2016 22:50:32 Oral surgery procedure completed Dena Argueta [facility] 04/06/2016 12:36:17 Imaging Results None recorded. Procedure Notes None recorded. Medical Equipment None Reported. Allergies Allergen ID Allergen Name Allergen Category Reaction Reaction Severity Criticality Documentation Date Start Date Code Code System Note Provider Name and Address Organization Details Recorded Time 478989 latex environme nt,medica tion hives moderate Not available 01/12/2016 71392 91 RxNorm Georgi Moctezuma MD [address] [facility],[address], [place], [address], [facility] 22:23:54 882674 acetamino phen / hydrocodo ne medicatio n other moderate Not available 04/05/2016 43219 2 RxNorm facia l numbn ess scotty sepulveda, [facility] 6 12:23:03 487836 Wellbutri n medicatio n Not available Not available Not available 06/18/2016 65992 RxNorm vivid dream s/fri ghten ing ; used w/ post partu m alivia Moctezuma MD, Georgi Costa [address], [facility] [place], [address], [place] [facility] 7 11:10:40 451003 adhesive tape environme nt,medica tion Not available Not available Not available 03/16/2020 54722 UNK Aliyah sepulveda, [facility] 0 12:21:24 Medications Name Authored On Sig Start Date Stop Date Status Note Indication Fill Status Repeat Number Dispense Quantity LastModified by Organization Details LastModified Time amoxi cilli n 875 mg-po tassi um clavu lanat e 125 mg table t 6 05:09:44 aborted Not Available Not availab le 0 Not Available [facility] 01/12/2016 11:09:56 levof loxac in 500 mg table t 6 05:09:44 aborted Not Available Not availab le 0 Not Available [facility] 01/12/2016 11:09:56 ondan setro n 4 mg disin tegra ting table t 6 05:09:44 aborted Not Available Not availab le 0 Not Available [facility] 01/12/2016 11:09:56 oxyco done- aceta minop hen 5 mg-32 5 mg table t 6 05:09:44 aborted Not Available Not availab le 0 Not Available [facility] 01/12/2016 11:09:56 fluox etine 10 mg capsu le 6 05:09:44 aborted Not Available Not availab le 0 Not Available Georgi Moctezuma MD [address] [facility],[address], [place], [address], [facility] 01/12/2016 11:49:35 Nysto p 100,0 00 unit/ gram topic al powde r 6 05:02:10 aborted Not Available Not availab le 0 Not Available Dena [facility] 04/06/2016 12:36:17 dicyc lomin e 10 mg capsu le 6 05:09:44 aborted Not Available Not availab le 0 Not [facility] 13:03:11 trama dol 50 mg table t 6 05:09:44 aborted Not Available Not availab le 0 Not Available Dena [facility] 04/06/2016 13:03:11 propr anolo l ER 80 mg capsu le,24 hr,ex tende d relea se 6 05:09:44 09/20 aborted fatig ue Not Available Not availab le 0 Not Available Georgi Moctezuma MD [address] [facility],[address], [place], [address], [facility] 05/08/2016 11:28:35 Prist iq 50 mg table t,ext ended relea se 7 12:01:33 TAKE 1 TABL ET EVER Y DAY BY ORAL ROUT E. 06/14 aborted Not Available Not availab le 1 Not Available Puja Mendoza [facility] 06/14/2016 12:51:50 venla faxin e ER 37.5 mg capsu le,ex tende d relea se 24 hr 7 04:44:01 06/14 aborted Not Available Not availab le 0 Not Available Puja Kelly [facility] 06/14/2016 12:52:02 Depo- Medro l 40 mg/mL suspe nsion for injec tion 7 12:26:59 Take by inje ctio n rout e. 11/21 aborted Hand pain Not availab le 0 Not Available Christel Sparks [facility] 11/21/2016 10:55:45 methy lpred nisol one 4 mg table ts in a dose pack 7 05:24:26 11/21 aborted Not Available Not availab le 0 Not Available Christel Sparks [facility] 11/21/2016 10:56:03 Myrbe triq 50 mg table t,ext ended relea se 7 18:10:19 Take by oral rout e. 11/21 aborted Not Available Not availab le 0 Not Available Christel Sparks [facility] 11/21/2016 10:56:15 Trint ellix 5 mg table t 7 12:00:10 take 1 tab po q day x's 5 days , then 2 tabs po q day 11/21 aborted Mixed anxiety and depressive disorder Not availab le 0 Not Available Christel Sparks [facility] 11/21/2016 10:56:35 venla faxin e ER 75 mg capsu le,ex tende d relea se 24 hr 7 12:31:54 TAKE 1 CAPS ULE TODD Y BY MOUT H 11/21 aborted Not Available Not availab le 3 Not Available Christel Sparks [facility] 11/21/2016 10:56:42 nitro furan toin macro cryst al 50 mg capsu le 7 09:52:04 01/31 aborted Not Available Not availab le 0 Not Available Anuradha Mukherjee [facility] 01/31/2017 12:11:40 topir amate 25 mg table t 7 05:01:35 01/31 aborted Not Available Not availab le 0 Not Available Anuradha Mukherjee [facility] 01/31/2017 12:12:26 cetir izine 10 mg table t 6 05:09:44 08/12 aborted Not Available Not availab le 0 Not Available Christel Sparks [facility] 08/12/2017 11:07:02 desog estre l-e.e strad iol 0.15 mg-0. 02 mg(21 )/e.e strad 0.01 mg(5) table t 7 05:01:35 08/12 aborted Not Available Not availab le 0 Not Available Christel Sparks [facility] 08/12/2017 11:07:08 Vesic are 5 mg table t 7 12:18:48 TAKE 1 TABL ET TODD Y 08/12 aborted Not Available Not availab le 3 Not Available Christelaustin Sparks [facility] 08/12/2017 11:07:46 cetir izine 5 mg table t 8 05:55:17 02/11 aborted Not Available Not availab le 0 Not Available Tete Brian DO [address] [facility],[address], [address], [facility] 02/11/2018 10:33:57 topir amate 50 mg table t 8 11:39:17 Take 1 tabl et twic e a day by oral rout e. 04/02 aborted Migraine Not availab le 3 Not Available Nitin Laguerre MD [address] [facility],[address], [place], [address], [facility] 04/02/2018 15:02:31 amitr iptyl ine 10 mg table t 8 11:22:11 Take 1 tabl et ever y day by oral rout e at bedt gerard. 04/02 aborted Insomnia Not availab le 2 Not Available Nitin Laguerre MD [address] [facility],[address], [place], [address], [facility] 04/02/2018 15:04:30 amitr iptyl ine 25 mg table t 9 07:49:19 12/11 aborted Not Available Not availab le 0 Not Available Timbo Mckeon DO [address] [facility],[address], [place], [address], [facility] 12/11/2018 17:23:05 azbrina sajan 137 mcg (0.1 %) nasal spray 8 05:33:57 12/11 aborted not curre ntly using this medic ation mh Not Available Not availab le 0 Not Available Timbo Mckeon DO [address] [facility],[address], [place], [address], [facility] 12/11/2018 17:23:46 ergoc alcif meghan (thuy min D2) 1,250 mcg (50,0 00 unit) capsu le 7 05:01:35 12/11 aborted not curre ntly using this medic ation mh Not Available Not availab le 0 Not Available Timbo Mckeon DO [address] [facility],[address], [place], [address], [facility] 12/11/2018 17:25:06 Se-Na gino 19 29 mg iron- 1 mg table t 0 13:05:49 Take 1 tabl et by oral rout e for 90 days . 08/17 aborted First trimester Not availab le 3 Not Available Evie Mukherjee [facility] 08/18/2019 12:00:52 butal bital -acet amino phen- caffe ine 50 mg-32 5 mg-40 mg table t 8 05:33:57 07/08 aborted Pt stopp ed takin g on 2019 Not Available Not availab le 0 Not Available Evie Mukherjee [facility] 08/18/2019 12:05:32 Detro l LA 4 mg capsu le,ex tende d relea se 9 05:46:21 09/21 aborted Pt stopp ed takin g on 2019 Not Available Not availab le 0 Not Available Evie Mukherjee [facility] 09/22/2019 14:18:41 Dryso l Dab-O -Chapin c 20 % topic al solut ion 0 05:30:32 09/21 aborted Pt stopp ed takin g on 2019 Not Available Not availab le 0 Not Available Evie Mukherjee [facility] 09/22/2019 14:18:48 omepr azole 20 mg capsu le,de layed relea se 8 05:55:17 09/21 aborted Pt stopp ed takin g on 2019 Not Available Not availab le 0 Not Available Evie Mukherjee [facility] 09/22/2019 14:19:03 sumat ripta n 100 mg table t 8 11:39:42 take 1 tab po x's 1 with head ache onse t; may repe at dose x's 1 in 2 h if symp toms pers ist; Max dose 200m g/24 h 09/21 aborted Pt stopp ed takin g on 2019 Migraine Not availab le 4 Not Available Evie Mukherjee [facility] 09/22/2019 14:19:08 Zyrte c 8 10:12:30 prn 09/21 aborted Pt stopp ed takin g on 2019 Not Available Not availab le 0 Not Available Evie Mukherjee [facility] 09/22/2019 14:19:17 Dulco lax (bisa codyl ) 5 mg table t,del ayed relea se 0 10:43:48 Take 1 tabl et ever y day by oral rout e as need ed. 10/19 aborted Constipatio n Not availab le 0 Not Available Evie Mukherjee [facility] 10/20/2019 14:19:16 Vitam in B-6 25 mg table t 0 12:33:59 Take 1 tabl et twic e a day by oral rout e. 10/19 aborted Mild hyperemesis gravidarum Not availab le 0 Not Available Evie Mukherjee [facility] 10/20/2019 14:19:57 Uniso m (doxy armando e) 25 mg table t 0 12:35:03 Take 12.5 mg twic e a day by oral rout e as need ed. 01/19 aborted Mild hyperemesis gravidarum Not availab le 0 Not Available Evie Mukherjee [facility] 01/20/2020 12:56:43 Prena tabs Rx 29 mg iron- 1 mg table t 0 06:32:39 active Not Available Not availab le 0 Not Available Not Available [facility] 02/09/2020 06:32:39 terco nazol e 0.4 % vagin al cream 0 06:17:43 02/24 aborted Not Available Not availab le 0 Not Available Evie Mukherjee [facility] 02/25/2020 12:40:15 Monis tat 7 2 % vagin al cream 0 19:33:27 Inse rt 1 appl icat orfu l ever y day by vagi nal rout e for 7 days . 02/24 aborted Vaginitis Not availab le 0 Not Available Evie Mukherjee [facility] 02/25/2020 12:40:21 Zyrte c 10 mg capsu le 0 12:57:03 Take by oral rout e. 03/16 aborted Not Available Not availab le 0 Not Available [facility] 12:21:42 Novol in N NPH U-100 Insul in isoph ane 100 unit/ mL subcu taneo us susp 0 06:32:39 03/16 aborted Not Available Not availab le 0 Not Available [facility] 03/16/2020 12:21:49 Gurinder ts,Th in 23 gauge 0 06:32:39 03/16 aborted Not Available Not availab le 0 Not Available [facility] 03/16/2020 12:21:53 FreeS tyle Lite Strip s 0 06:32:39 03/16 aborted Not Available Not availab le 0 Not Available [facility] 03/16/2020 12:21:57 alcoh ol swabs 0 06:32:39 03/16 aborted Not Available Not availab le [address] [facility] 03/16/2020 12:22:01 BD Insul in Syrin ge Ultra -Fine 1 mL 31 gauge x 09/04 0 07:38:07 03/16 aborted Not Available Not availab le [address] [facility] 03/16/2020 12:22:04 BD Ultra -Fine Mini Pen Needl e 31 gauge x 07/05 0 07:38:07 03/16 aborted Not Available Not availab le [address] [facility] 03/16/2020 12:22:07 Benad ryl 0 12:56:56 25mg 03/16 aborted Not Available Not availab le [address] [facility] 03/16/2020 12:22:10 FreeS tyle Freed om Lite kit 0 05:49:07 03/16 aborted Not Available Not availab le [address] [facility] 03/16/2020 12:22:14 ibupr ofen 600 mg table t 0 05:01:49 03/16 aborted Not Available Not availab le [address] [facility] 03/16/2020 12:22:18 michi us sulfa te 325 mg (65 mg iron) table t 0 06:23:43 03/16 aborted Not Available Not availab le [address] [facility] 03/16/2020 12:22:22 Vitam in B-6 50 mg table t 0 14:20:37 Take 1 tabl et 3 time s a day by oral rout e. 04/27 aborted not curre ntly using this medic ation mh Not Available Not availab le 0 Not Available [facility] 04/27/2020 16:50:00 Vitam in D3 16:50:14 active Not Available Not availab le 0 Not Available Aliyah [facility] 04/27/2020 16:50:14 sertr carla 50 mg table t 04:38:52 06/09 aborted Zolof t Not Available Not availab le 0 Not Available Malka VANEGAS, Cali Carter [address] [facility],[address], [place], [address], [facility] 06/09/2020 12:03:33 sertr carla 100 mg table t 04:35:03 Take 1 tabl et ever y day by oral rout e for 30 days . 09/12 aborted Not Available Not availab le 0 Not Available Abdifatah VANEGAS, Kandi Costa [address] [facility],[address], [place], [address], [facility] 09/12/2020 15:08:32 sertr carla 25 mg table t 04:35:03 Take 1 tabl et ever y day by oral rout e for 30 days . 09/12 aborted Not Available Not availab le 0 Not Available Kandi Gardiner MD [address] [facility],[address], [place], [address], [facility] 09/12/2020 15:08:35 fluti william e propi quinton 50 mcg/a ctuat ion nasal spray ,susp ensio n 1 04:50:08 SPRA Y 2 SPRA YS IN EACH NOST RIL EVER Y DAY active Not Available Not availab le 0 Not Available Not Available [facility] 09/18/2020 04:50:08 docus ate sodiu m 100 mg capsu le 0 06:23:43 09/26 aborted Not Available Not availab le 0 Not Available Abdifatah VANEGAS, Kandi M [address] [facility],[address], [place], [address], [facility] 09/26/2020 21:47:38 hydro xyzin e HCl 25 mg table t 15:42:47 Take 1 tabl et twic e a day by oral rout e as need ed for 30 days . 01/04 aborted Anxiety Not availab le 1 Not Available Not Available [facility] 01/04/2021 15:26:33 hydro xyzin e HCl 50 mg table t 19:34:56 TAKE ONE TABL ET BY MOUT H EVER Y NIGH T AT BEDT GERARD complet ed Mixed anxiety and depressive disorder Not availab le 0 Not Available Not Available [facility] 12/29/2021 19:36:54 dulox etine 30 mg capsu le,de layed relea se 2 09:24:06 TAKE ONE CAPS ULE BY MOUT H ONE TIME TODD Y complet ed Mixed anxiety and depressive disorder Not availab le 0 Not Available Not Available [facility] 01/31/2022 09:26:19 dulox etine 60 mg capsu le,de layed relea se 2 09:24:04 TAKE ONE CAPS ULE BY MOUT H ONE TIME TODD Y complet ed Mixed anxiety and depressive disorder Not availab le 0 Not Available Not Available [facility] 01/31/2022 09:26:19 Vitals None Recorded Social History Question Answer Notes LastModified by Organizat ion Details LastModified Time Tobacco Smoking Status Never Smoker Kathy sepulveda, [facility] 12/11/2018 16:59:59 Has the patient fallen two or more times in the past year? No 12/11/18 cbrandli Information not available Not Available Have you traveled outside of the [place] in the last 21 days (3 weeks)? No null cbrandli Information not available Not Available Did you hurt yourself when you fell in the last year? No 12/11/18 cbrandli Information not available Not Available Do you have any catholic beliefs that may impact your health care decisions? No Does not follow any sikh dderamos Information not available Not Available Education: 12 null Information not available Not Available What type of diet are you following? Regular low sodium Christel sepulveda [facility] 01/12/2016 11:18:28 Do you have an advance directive? No I gave her the form for the Living Will and Health Power of Embroidery Supervisor, She does want to be resuscitated. She does not want to be maintained on chronic life support if there is little hope of a meaningful recovery. - 12/18/2018 Timbo Mckeon DO [address] [facility] [address], [place], [address], [facility] 12/18/2018 10:19:34 Have you been to an area known to be high risk for COVID-19? No Evie sepulveda [facility] 07/30/2019 11:31:44 In the 14 days before symptom onset, have you had close contact with a laboratory-confi rmed COVID-19 while that case was ill? No Evie sepulveda [facility] 07/30/2019 11:31:46 In the 14 days before symptom onset, have you had close contact with a person who is under investigation for COVID-19 while that person was ill? No Evie sepulveda [facility] 07/30/2019 11:31:45 How many years have you smoked tobacco? 0 Dena sepulveda [facility] 04/06/2016 12:36:16 At what age did you start smoking tobacco? 0 Dena sepulveda [facility] 04/06/2016 12:36:16 How much tobacco do you smoke? None Christel sepulveda [facility] 01/12/2016 11:18:28 How much tobacco do you chew? none Dena sepulveda [facility] 04/06/2016 12:36:16 Which illicit or recreational drugs have you used? None Timbo Mckeon DO [address] [facility],[address], [place], [address], [facility] 12/11/2018 17:38:51 What is your level of caffeine consumption? Occasional Coffee: 1-2 cups daily Mike PUTNAM, Timbo Lucas [address] [facility],[address], [place], [address] 12/11/2018 17:38:34 Are you sexually active? Yes Dena Iglesiaselena [facility] 04/06/2016 12:36:16 What was the date of your most recent tobacco screening? Abdifatah VANEGAS, Kandi Costa [address] [facility],[address], [place], [address], [facility] 09/15/2020 07:27:53 Marital status [facility] 01/12/2016 11:18:28 Social History Observation Description Date Observed Sex Unknown 11/08/2021 Legal Sex Female Status Not (finding) 10/28/19 25 No social history survey screeners recorded No social history SDOH screeners recorded Functional Status Question Answer Note LastModified by Organizat ion Details LastModified Time What is your exercise level? Moderate walking Rhianna VANEGAS, Georgi Costa [address] [facility],[address], [place], [address], [facility] 01/12/2016 21:53:47 Are you blind or do you have difficulty seeing? No [facility] 08/12/2017 11:08:08 Do you or have you ever used e-cigarettes or vape? Never used electronic cigarettes Kathy Guallpa [facility] 12/11/2018 17:00:03 Do you or have you ever used smokeless tobacco? Never used smokeless tobacco Kathy Guallpa [facility] 12/11/2018 17:00:00 What is your level of alcohol consumption? None Evie Mukherjee [facility] 10/27/2019 12:06:28 No Functional Screening assessment recorded No Functional SDOH screeners recorded Mental Status Question Answer Note LastModified by Organizat ion Details LastModified Time Do you have difficulty concentrating, remembering or making decisions? No Christel Bridgerrufino sepulveda [facility] 08/12/2017 11:08:08 Date Assessment Value LastModified by Organizat ion Details LastModified Time 0 [place] Depression Scale 5 Savanaaaliyah Thompson [facility] 04/13/2020 11:27:43 0 I have been able to laugh and see the funny side of things Savana Thompson [facility] 04/13/2020 11:27:43 0 I have looked forward with enjoyment to things Savanaaaliyah Thompson [facility] 04/13/2020 11:27:43 0 I have blamed myself unnecessarily when things went wrong Savanaaaliyah Thompson [facility] 04/13/2020 11:27:43 0 I have been anxious or worried for no good reason Savana Thompson [facility] 04/13/2020 11:27:43 0 I have felt scared or panicky for no very good reason Savana Thompson [facility] 04/13/2020 11:27:43 0 Things have been getting on top of me Savanaaaliyah Thompson [facility] 04/13/2020 11:27:43 0 I have been so unhappy that I have had difficulty sleeping Savana Thompson [facility] 04/13/2020 11:27:43 0 I have felt sad or miserable Savana Thompson [facility] 04/13/2020 11:27:43 0 I have been so unhappy that I have been crying Savana Thompson [facility] 04/13/2020 11:27:43 0 The thought of harming myself has occurred to me Savana Thompson [facility] 04/13/2020 11:27:43 1 [place] Depression Scale 19 [facility] 06/09/2020 11:34:07 1 I have been able to laugh and see the funny side of things Savana Jay [facility] 06/09/2020 11:34:07 1 I have looked forward with enjoyment to things Savanaaaliyah Thompson [facility] 06/09/2020 11:34:07 1 I have blamed myself unnecessarily when things went wrong Savanaaaliyah Thompson [facility] 06/09/2020 11:34:07 1 I have been anxious or worried for no good reason Savanaaaliyah Thompson [facility] 06/09/2020 11:34:07 1 I have felt scared or panicky for no very good reason Savanaaaliyah Thompson [facility] 06/09/2020 11:34:07 1 Things have been getting on top of me Savanaaaliyah Thompson [facility] 06/09/2020 11:34:07 1 I have been so unhappy that I have had difficulty sleeping Savana Jay [facility] 06/09/2020 11:34:07 1 I have felt sad or miserable Savanaaaliyah Thompson [facility] 06/09/2020 11:34:07 1 I have been so unhappy that I have been crying Savanaaaliyah Thompson [facility] 06/09/2020 11:34:07 1 The thought of harming myself has occurred to me Savanaaaliyah Thompson [facility] 06/09/2020 11:34:07 1 Patient Health Questionnaire 21 Kandi Gardiner MD [facility] 08/30/2020 11:53:30 1 Little interest or pleasure in doing things Nearly every day Kandi Gardiner MD [facility] 08/30/2020 11:53:30 1 Feeling down, depressed, or hopeless Nearly every day Kandi Gardiner MD [facility] 08/30/2020 11:53:30 1 Trouble falling or staying asleep, or sleeping too much Nearly every day Kandi Gardiner MD [facility] 08/30/2020 11:53:30 1 Feeling tired or having little energy More than half the days Kandi Gardiner MD [facility] 08/30/2020 11:53:30 1 Poor appetite or overeating More than half the days Kandi Gardiner MD [facility] 08/30/2020 11:53:30 1 Feeling bad about yourself - or that you are a failure or have let yourself or your family down Nearly every day Kandi Gardiner MD [facility] 08/30/2020 11:53:30 1 Trouble concentrating on things, such as reading the newspaper or watching television More than half the days Kandi Gardiner MD [facility] 08/30/2020 11:53:30 1 Moving or speaking so slowly that other people could have noticed? Or the opposite - being so fidgety or restless that you have been moving around a lot more than usual More than half the days Kandi Gardiner MD [facility] 08/30/2020 11:53:30 1 Thoughts that you would be better off or of hurting yourself in some way Several days Kandi Gardiner MD [facility] 08/30/2020 11:53:30 1 If you checked off any problems, how difficult have these problems made it for you to do your work, take care of things at home, or get along with other people? Kandi Gardiner MD [facility] 08/30/2020 11:53:30 1 Generalized Anxiety Disorder Kandi Gardiner MD [facility] 08/30/2020 11:32:42 1 Feeling nervous, anxious or on edge Kandi Gardiner MD [facility] 08/30/2020 11:32:42 1 Not being able to stop or control worrying Kandi Gardiner MD [facility] 08/30/2020 11:32:42 1 Worrying too much about different things Kandi Gardiner MD [facility] 08/30/2020 11:32:42 1 Trouble relaxing [facility] 08/30/2020 11:32:42 1 Being so restless that it is hard to sit still Kandi Gardiner MD [facility] 08/30/2020 11:32:42 1 Becoming easily annoyed or irritable Kandi Gardiner MD [facility] 08/30/2020 11:32:42 1 Feeling afraid as if something awful might happen Kandi Gardiner MD [facility] 08/30/2020 11:32:42 1 Patient Health Questionnaire 17 Kandi Gardiner MD [facility] 09/12/2020 14:40:16 1 Little interest or pleasure in doing things Several days Kandi Gardiner MD [facility] 09/12/2020 14:40:16 1 Feeling down, depressed, or hopeless Several days Kandi Gardiner MD [facility] 09/12/2020 14:40:16 1 Trouble falling or staying asleep, or sleeping too much Nearly every day Kandi Gardiner MD [facility] 09/12/2020 14:40:16 1 Feeling tired or having little energy Nearly every day Kandi Gardiner MD [facility] 09/12/2020 14:40:16 1 Poor appetite or overeating Nearly every day Gardiner MD, Miena M [facility] 09/12/2020 14:40:16 1 Feeling bad about yourself - or that you are a failure or have let yourself or your family down Several days Kandi Gardiner MD [facility] 09/12/2020 14:40:16 1 Trouble concentrating on things, such as reading the newspaper or watching television Nearly every day Kandi Gardiner MD [facility] 09/12/2020 14:40:16 1 Moving or speaking so slowly that other people could have noticed? Or the opposite - being so fidgety or restless that you have been moving around a lot more than usual Several days Kandi Gardiner MD [facility] 09/12/2020 14:40:16 1 Thoughts that you would be better off or of hurting yourself in some way Several days Kandi Gardiner MD [facility] 09/12/2020 14:40:16 1 If you checked off any problems, how difficult have these problems made it for you to do your work, take care of things at home, or get along with other people? Kandi Gardiner MD [facility] 09/12/2020 14:40:16 1 Patient Health Questionnaire 24 Guevara DO, [facility] 10/17/2020 17:18:40 1 Little interest or pleasure in doing things More than half the days Guevara DO, [facility] 10/17/2020 17:18:40 1 Feeling down, depressed, or hopeless Nearly every day Guevara DO, [facility] 10/17/2020 17:18:40 1 Trouble falling or staying asleep, or sleeping too much Nearly every day Guevara DO, [facility] 10/17/2020 17:18:40 1 Feeling tired or having little energy Nearly every day Guevara DO, [facility] 10/17/2020 17:18:40 1 Poor appetite or overeating Nearly every day Guevara DO, [facility] 10/17/2020 17:18:40 1 Feeling bad about yourself - or that you are a failure or have let yourself or your family down Nearly every day Guevara DO, [facility] 10/17/2020 17:18:40 1 Trouble concentrating on things, such as reading the newspaper or watching television Nearly every day Guevara DO, [facility] 10/17/2020 17:18:40 1 Moving or speaking so slowly that other people could have noticed? Or the opposite - being so fidgety or restless that you have been moving around a lot more than usual More than half the days Guevara DO, [facility] 10/17/2020 17:18:40 1 Thoughts that you would be better off or of hurting yourself in some way More than half the days Guevara DO, [facility] 10/17/2020 17:18:40 1 If you checked off any problems, how difficult have these problems made it for you to do your work, take care of things at home, or get along with other people? Guevara DO, [facility] 10/17/2020 17:18:40 1 Generalized Anxiety Disorder 18 Guevara DO, [facility] 10/17/2020 17:19:03 1 Feeling nervous, anxious or on edge Guevara DO, [facility] 10/17/2020 17:19:03 1 Not being able to stop or control worrying Guevara DO, [facility] 10/17/2020 17:19:03 1 Worrying too much about different things Guevara DO, [facility] 10/17/2020 17:19:03 1 Trouble relaxing [facility] 10/17/2020 17:19:03 1 Being so restless that it is hard to sit still Guevara DO, [facility] 10/17/2020 17:19:03 1 Becoming easily annoyed or irritable Guevara DO, [facility] 10/17/2020 17:19:03 1 Feeling afraid as if something awful might happen Guevara DO, [facility] 10/17/2020 17:19:03 8 Patient Health Questionnaire 0 [facility] 04/02/2018 14:34:27 8 Little interest or pleasure in doing things Not at all [facility] 04/02/2018 14:34:27 8 Feeling down, depressed, or hopeless Not at all [facility] 04/02/2018 14:34:27 8 Trouble falling or staying asleep, or sleeping too much Bisi Rosen [facility] 04/02/2018 14:34:27 8 Feeling tired or having little energy [facility] 04/02/2018 14:34:27 8 Poor appetite or overeating Bisi Rosen [facility] 04/02/2018 14:34:27 8 Feeling bad about yourself - or that you are a failure or have let yourself or your family down [facility] 04/02/2018 14:34:27 8 Trouble concentrating on things, such as reading the newspaper or watching television [facility] 04/02/2018 14:34:27 8 Moving or speaking so slowly that other people could have noticed? Or the opposite - being so fidgety or restless that you have been moving around a lot more than usual Bisi Rosen [facility] 04/02/2018 14:34:27 8 Thoughts that you would be better off or of hurting yourself in some way Bisi Rosen [facility] 04/02/2018 14:34:27 8 If you checked off any problems, how difficult have these problems made it for you to do your work, take care of things at home, or get along with other people? Bisi Rosen [facility] 04/02/2018 14:34:27 No Mental SDOH screeners recorded Family History Relationship Description Onset Age of this Age Resolved Age Notes LastModified by Organization Details LastModified Time Father Myocardial infarction 55 Not available 04/25 18:44:02 Father Hypertensive disorder Not available 2016 18:44:02 Father Hyperlipidem ia [email or web address] Not available 2016 18:44:02 Paternal Aunt Malignant tumor of cervix [email or web address] Not available 2016 18:44:02 Paternal Aunt Dementia [email or web address] Not a vailable 04/25/2016 18:44:02 Mother Pyelonephrit [...] quadrivalent , PF 1 completed Maile sepulveda [facility] 03/15/2021 12:10:26 COVID-19, mRNA, LNP-S, PF, 30 mcg/0.3 mL dose 1 completed Savana sepulveda [facility] 08/30/2020 10:45:30 COVID-19, mRNA, LNP-S, PF, 30 mcg/0.3 mL dose 1 completed Savana sepulveda [facility] 08/30/2020 10:45:45 COVID-19, mRNA, LNP-S, PF, 30 mcg/0.3 mL dose 1 completed Maile sepulveda [facility] 03/15/2021 11:48:03 Influenza, split virus, trivalent, PF 8 cancelled patient objection Not Available [facility] 05/09/2019 02:33:30 Influenza, MDCK, quadrivalent , PF 8 completed Not Available [facility] 05/09/2019 03:23:32 Influenza, MDCK, quadrivalent , PF 9 completed Not Available [facility] 05/09/2019 03:01:50 Influenza, split virus, quadrivalent , PF 0 completed Savana sepulveda [facility] 01/05/2020 16:31:36 Tdap 3 completed Not Available [facility] 03/07/2020 09:20:47 Past Encounters Encounter ID Performer Location Encounter Start Date Encounter Closed Date Diagnosis/Indication Diagnosis SNOMED-CT Code Diagnosis ICD10 Code Diagnosis Note [id number] Rhianna VANEGAS, Georgi [facility] [address] [facility],[place] [address] 01/12/2016 10:23:10 01/13/2016 12:09:34 Adult health examination 034540741 Z00.00 Hematology screening test 188546289 Z13.0 Hyperlipid emia screening 380870266 Z13.220 Endocrine/ metabolic screening 054558077 Z13.228 Mixed anxi ety and depressive disorder 474494768 F41.8 Tinnitus 55140632 H93.13 Decreased hearing 218273 001 H91.93 Reduced visual acuity 13 385857 H54.7 Contraception care 62912 5005 Z30.40 [id number] Lv lucas MD, Chandrakant Shipley [facility] [address] [place] [address] [address] [place] [address] 04/05/2016 11:57:03 04/05/2016 13:17:18 Tinnitus 16870197 H93.13 At this time the patient has bilateral tinnitus, most likely due to her bilateral hearing loss. Please see plan as described above. FG Allergic r hinitis caused by pollen 75189733 J30.1 At this time the patient has [...] Sensorineu ral hearing loss of bilateral ears 619121775 H90.3 At this time the patient comes [...] will follow up as needed. FG Dizziness 267682393 R42 At this time the patient also complains of an off balance feeling with walking up and down stairs, but does not have any other problems. We will see if this improves on nasal steroid spray. She had no further questions and will follow up as needed for now. FG [id number] Asha Bradford [facility] [address] [facility],[place] [address] [place] [address] 04/05/2016 13:09:55 04/05/2016 13:12:09 Sensorineural hearing loss of bilateral ears 858794406 H90.3 [id number] Eugenio VANEGAS, Margy Valdivia [facility] [place] [address] [place] [address],[place] [address] [facility] [place] [address] 04/06/2016 12:09:16 04/06/2016 13:47:10 Gynecologic examination 54377704 Z01.419 Screening for malignant neoplasm of cervix 826805437 Z12.4 Menorrhagia 759299757 N9 2.0 History of urinary tract infection 0782126201 107 Z87.440 Surveillan ce of contraception 086866852 Z30.40 [id number] Eugenio VANEGAS, Margy Valdivia [facility] [place] POS [address] [place] [address],[address] [place] [address] 04/25/2016 17:48:13 04/25/2016 19:53:53 Menorrhagia 262439401 N92.0 Blood in urine 67065802 R31.9 [id number] Rhianna VANEGAS, Georgi Costa [facility] POS [address],[facility] [place] [address] 05/08/2016 10:01:31 05/08/2016 12:08:23 Migraine 92387726 G43.909 Mixed anxi ety and depressive disorder 922836973 F41.8 Carpal davonte simon syndrome 17446785 G56.00 Insomnia 847869580 G47.0 0 Hand pain 89635828 M79.6 42 Vitamin D deficiency 347 22912 E55.9 [id number] Chuck VANEGAS, [facility] POS [address] [place] [address] 06/14/2016 12:22:40 06/14/2016 14:22:12 Microscopic hematuria 297876558 R31.21 she had 2-5 rbc on last ua done 04/26.17-has had full workup done in the past by another urologist and was negative but it was a while agovijay send urine for c/s and cytology-f ollow up for cystoscopy in office Renal colic 8718023 N23 she is having bilateral flank pain-previ ous urologist had checked a renal us but this may not black pickler renal stones-jc l do ct scan for stone search prior to cystoscopy [id number] Rhianna VANEGAS, Georgi Costa [facility] [address] [employer],[place] [address] 06/18/2016 10:33:06 06/18/2016 12:04:21 Mixed anxiety and depressive disorder 175154027 F41.8 [id number] Chuck VANEGAS, [facility] POS [address] [place] [address] 06/28/2016 12:09:59 06/28/2016 12:45:15 Blood in urine 71004184 R31.9 her cystoscopy shows mild chronic bullous cystitis and a diverticul um, mild grade 1 trabeculat ions-will start on suppressiv e dose macrodanti n for one monthfollo w up in 3mos [id number] Donnell VANEGAS, Luis Soliz [facility] POS [address] [place] [address] 06/29/2016 11:24:40 07/13/2016 10:46:48 Hand pain 46028713 M79.643 Carpal davonte simon syndrome 93061403 G56.01 G56.02 [id number] Donnell VANEGAS, Luis Soliz [facility] [place] POS [address] [place] [address] 07/13/2016 11:07:42 07/13/2016 13:24:50 Pain of wrist region 35589467 M25.531 Hand pain 18209856 M79.6 43 Carpal davonte simon syndrome 98306889 G56.01 G56.02 [id number] Rhianna VANEGAS, Georgi Costa [facility] [address],[place] [address] 07/16/2016 10:58:41 07/16/2016 11:42:57 Mixed anxiety and depressive disorder 282679420 F41.8 [id number] Donnell VANEGAS, Luis Soliz [facility] [place] [address] [place] [address] 08/13/2016 11:24:07 08/13/2016 12:23:07 Hand pain 35838444 M79.641 Pain of wrist region 566 14014 M25.531 Carpal davonte simon syndrome 17724846 G56.01 G56.02 [id number] Donnell VANEGAS, Luis Soliz [facility] [place] [address] [place] [address] 09/20/2016 11:45:56 09/20/2016 14:44:21 Pain of wrist region 54751009 M25.531 M25.532 Hand pain 06725549 M79.6 41 Carpal davonte simon syndrome 23908751 G56.01 G56.02 [id number] Chuck VANEGAS, [facility] [place] POS [address] [place] [address] 10/04/2016 11:54:33 10/04/2016 12:31:12 Blood in urine 81949221 R31.9 she had history of microhemat uriawas given 3mos of suppressiv e dose abxhas not seen any blood in urinewill check ua/culture Bladder mu scle dysfunction - overactive 720249939 N32.81 she goes to bathroom every 2 hours during day and 2 times at night, occ urge incontinen cetrial of myrbetriq Female str ess incontinence 53768062 N39.3 -she does not require pads for the problemonl y occurs occasional ly with sneezingdi scussed treatment options- e will observe for now [id number] Donnell VANEGAS, Lius Soliz [facility] [place] [address] [facility] [facility] [address] [place] [address] 10/08/2016 09:47:26 10/08/2016 10:46:23 Pain of wrist region 83808705 M25.531 M25.532 Hand pain 67415255 M79.6 41 Carpal davonte simon syndrome 39303344 G56.01 G56.02 [id number] Donnell VANEGAS, Luis Soliz [facility] POS [address] [facility],[address] [place] [address] 11/09/2016 10:50:45 11/09/2016 12:33:48 Pain of wrist region 08104516 M25.531 M25.532 Neck pain 72554251 M54.2 Hand pain 81158766 M79.6 41 Carpal davonte simon syndrome 01188632 G56.01 G56.02 [id number] Rhianna VANEGAS, Georgi [place] [address] [employer],[place] [address] 11/21/2016 10:22:19 12/11/2016 16:16:59 Low back pain 211520226 M54.5 Snoring 06998479 R06.83 [id number] Rhianna VANEGAS, Georgi [place] [address],[place] [address] 01/10/2017 16:20:44 01/10/2017 17:19:55 Pain in left knee 6600904476 76652 M25.562 Depressive disorder 3548 9007 F32.89 Fatigue 35598227 R53.83 [id number] Chuck VANEGAS, Vibha [facility] POS [address] [place] [address] 01/31/2017 11:27:16 01/31/2017 12:47:19 Bladder muscle dysfunction - overactive 038707764 N32.81 she goes to bathroom every 2 hours during day and 2 times at night, occ urge incontinen cemyrbetri q didn't help and wasn't covered Female str ess incontinence 46517396 N39.3 she is more bothered by it latelywoul d like to try physical therapyref erral to at [facility] given [id number] Tete Brian DO [facility] [address] [place] [address] 03/08/2017 11:55:53 03/13/2017 00:11:33 Fatigue 81260626 R53.83 --concerns for fatigue and insomnia. Have discussed sleep hygeine techniques with patient and reviewed the sleep study with her. Discussed weight loss and controllin g nasal congestion .--Pt will attempt these and follow up in the next 3 months. Allergic rhinitis 263228 04 J30.9 --nasal congestion Obesity 425652544 E66.9 --discusse d keeping track of her calories and aiming to eat about 500 calories less then what she normally eats.--Pt should f/u in 3 months on weight loss. [id number] Tete Brian DO AM#[facility] POS [address] [place] [address] 06/12/2017 10:00:03 06/12/2017 10:41:36 Active or passive immunization 642226551 Z23 Fatigue 27344978 R53.83 --cont use of breathe right strips and use nasal steroid. Allergic rhinitis 748024 04 J30.9 --nasal congestion continued. Increase cetirizine to 10 mg daily, but go back to 5 mg if she feels overly fatigued. Cont fluticason e and also start azelastine daily. Gastroesop hageal reflux disease 243940569 K21.9 [id number] Tete Brian [facility] [address] [place] [address] 08/12/2017 10:54:36 08/12/2017 11:48:10 Obesity 425949879 E66.9 --discusse d weight loss and diet again Insomnia 255780170 G47.0 0 --pt instructed to take amitriptyl ine daily.--Co unselled on possible side effects. RTC if insomnia worsens Neck pain 51440644 M54.2 --negative adsons test, negative spurling sign. Muscle spasm in b/l neck.--Giv en exercises for neck. OTC tylenol and ibuprofen. RTC as needed. Migraine 35440995 G43.90 9 [id number] Tete Brian DO [facility] AM#1 [address] [place] [address] 02/11/2018 10:03:22 02/11/2018 10:50:04 Administration of influenza vaccine 04212286 Z23 Migraine 18365361 G43.90 9 --fioricet , amitriptyl ine and topiramate Insomnia 583941621 G47.0 0 --pt instructed to take amitriptyl ine daily.--Co unselled on possible side effects. RTC if insomnia worsens Environmental allergy 42 0612647 T78.49XA [id number] Nitin Laguerre MD [facility] AM#1 [address] [place] [address] 04/02/2018 14:24:14 04/02/2018 15:10:58 Adult health examination 616156575 Z00.00 Migraine 97085388 G43.90 9 [id number] Timbo Mckeon DO [facility] POS [address] [facility],[address] [place] [address] 12/11/2018 16:42:55 12/11/2018 17:56:44 Bladder muscle dysfunction - overactive 693791273 N32.81 she has urinary incontinen ce and requesting a refill of the detrol, this has helped her in the past Body mass index 30+ - obesity 386542951 Z68.39 The patient's current weight is 209# with a height of 5' 1.25 and a correspond ing BMI (Body Mass Index) of 39.2. The medical definition of Obesity is a BMI greater than 30. Your [place] Body Weight is approximat malinda about 116#. [...] migraine prophylaxi s and weight loss. Migraine 27363695 G43.90 9 see the above plan [id number] Timbo Mckeon DO [facility]#1 POS [address] [facility],[address] [place] [address] 12/18/2018 09:57:19 12/18/2018 11:37:10 Adult health examination 466723137 Z00.00 Female Complete Physical Exam: I discussed [...] exercise, diet. Achieve/ma intain ideal body weight. 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 Active or passive immunization 656881283 Z23 Flu vaccine today, She is up to date with the Tdap Body mass index 30+ - obesity 736946183 Z68.38 The patient's current weight is 206.75# with a height of 5' 1.25 and a correspond ing BMI (Body Mass Index) of 38.7. The medical definition of Obesity is a BMI greater than 30. Your [place] Body Weight is approximat malinda about 116#. A reduced calorie, reduced carbohydra te weight reduction diet as well as increased activity.. She has lost about 3# since the last visit Hyperhidro sis of axilla 859249359 L74.510 Drysol Jessie.ly to axilla once daily at first and then about three times per week, do not apply to fresh shaven skin. Elevated blood-pressure reading without diagnosis of hypertension 081259560 R03.0 I encouraged the patient to check the blood pressure and log the results. Please follow a reduced sodium diet and maintain/a chieve ideal body weight. [id number] Malka VANEGAS, Cali Carter [facility] POS [address] [place] [address] 07/30/2019 10:48:16 07/30/2019 12:44:41 test positive 243627762 Z32.01 Mild hyper emesis gravidarum 58614894 O21.0 Reviewed and hyperemesi s with patient. Reviewed diet at length. Questions answered. Recommend consider hold PNV. Start vitamin B6, unisom. Ob dating u/s in 1 week. f/u 1wk. Amenorrhea 95557208 N91. 2 Reviewed findings, positive test. [id number] Malka VANEGAS, Cali Carter [facility] POS [address] [place] [address] 08/04/2019 11:31:16 08/04/2019 13:34:46 Disorder of menstruation 310275624 N92.6 Ob u/s reviewed, show viable iup consistent with LMP dating. Reviewed with patient. 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 OPERATOR [facility] POS [address] [place] [address] 7 08/18/2019 11:25:44 08/18/2019 13:21:34 Advanced maternal age 635316230 O09.899 Routine an tenatal care 608835230 Z34.81 Z3A.08 Mild hyper emesis gravidarum 44725244 O21.0 mostly resolved [id number] Malka VANEGAS, [facility] - CARBONATION EQUIPMENT OPERATOR [facility] POS [address] [place] [address] 7 09/22/2019 13:57:14 09/22/2019 14:40:34 Multigravida of advanced maternal age 794241023 O09.522 Z3A.15 [id number] Malka VANEGAS, [facility] POS [address] [place] [address] 7 10/20/2019 13:50:29 10/20/2019 15:17:10 Multigravida of advanced maternal age 042023180 O09.523 Z3A.19 [id number] Primitivo VANEGAS, Dickson [facility] POS [address] [place] [address] 10/27/2019 10:57:43 10/27/2019 14:41:15 Advanced maternal age 435565308 O09.899 expo sure to alcohol 477303104 O35.4XX9 expo sure to drug 549078322 O35.5XX9 Tolterodin e exposure [id number] Malka VANEGAS, [facility] - CARBONATION EQUIPMENT OPERATOR [facility] POS [address] [place] [address] 7 11/24/2019 14:02:44 11/24/2019 15:47:27 Advanced maternal age 423386634 O09.899 Z3A.24 [id number] Malka VANEGAS, [facility] - CARBONATION EQUIPMENT OPERATOR [facility] POS [address] [place] [address] 7 12/08/2019 13:27:12 12/08/2019 15:22:20 Gestational diabetes mellitus 52963917 O24.410 [id number] Erick VANEGAS, Thee Núñez [facility] POS [address] [place] [address] 12/17/2019 17:23:54 12/17/2019 17:24:51 [id number] Dickson Langford MD - [facility] POS [address] [place] [address] 12/22/2019 08:47:44 12/22/2019 11:38:14 Glucose tolerance test outside reference range 312556620 R73.09 Gestationa l diabetes mellitus 80716908 O24.410 [id number] Malka VANEGAS, Cali Carter [facility] POS [address] [place] [address] 12/22/2019 15:50:31 12/23/2019 10:14:48 Gestational diabetes mellitus 95251115 O24.410 Advanced m aternal age 475587651 O09.899 Z3A.24 High risk care 425224541 O09.93 [id number] Malka VANEGAS, Cali Carter [facility] POS [address] [place] [address] 01/05/2020 15:26:25 01/06/2020 12:30:32 Advanced maternal age 310742343 O09.899 Z3A.24 Gestationa l diabetes mellitus 76407475 O24.410 High risk care 212435700 O09.93 [id number] Erick VANEGAS, Thee Núñez [facility] POS [address] [place] [address] 01/08/2020 14:24:24 01/08/2020 15:19:50 [id number] Malka VANEGAS, Cali Carter [facility] POS [address] [place] [address] 7 01/12/2020 16:46:10 01/13/2020 11:56:27 Gestational diabetes mellitus 67303940 O24.410 Advanced m aternal age 698850828 O09.899 O09.893 [id number] Dickson Langford MD [facility] POS [address] [place] [address] 5 01/19/2020 14:10:41 01/19/2020 16:23:42 Gestational diabetes mellitus 36995879 O24.410 On Insulin Gestationa l diabetes mellitus class A2 23175191 O24.414 [id number] Malka VANEGAS, Cali Carter [facility] POS [address] [place] [address] 7 01/20/2020 12:35:55 01/20/2020 14:26:45 Multigravida of advanced maternal age 624428304 O09.523 Z3A.33 [id number] Milly Solorzano MD [facility] POS [address] [place] [address] 5 01/26/2020 14:26:55 01/26/2020 16:06:59 Gestational diabetes mellitus 23457245 O24.414 [id number] Jimmy VANEGAS, Madi Stevens [facility] POS [address] [place] [address] 7 01/30/2020 10:58:36 01/30/2020 11:58:25 Routine care 781365015 Z34.83 Gestationa l diabetes mellitus class A2 74246484 O24.414 [id number] Dickson Langford MD [facility] POS [address] [place] [address] 5 02/02/2020 14:26:03 02/02/2020 17:02:34 Advanced maternal age 577198511 O09.899 Gestationa l diabetes mellitus 24893587 O24.410 On Insulin [id number] Milly Solorzano MD [facility]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 Jackson Score Blood Edema Fundus Height Fundus Units Glucose Ketones Leukocytes Nitrite Labor Signs Protein Cervic Dilation Cervic Effacement Cervic Station none neg Type Weight in lbs Pre/Post Dialysis Refused With clothes 208.671504434152 BP Diastolic BP Location Tested BP Systolic BP Type 70 L arm 118 sitting Fetus Heart Rate Present A 150 Fetus Movement A Yes Comments ob fu. No complains. Reviewe d 3hr gtt pos. refer to [facility], dietitian. Send glucometer, chem strips, [...] in lbs Pre/Post Dialysis Refused With clothes 207.213937827323 BP Diastolic BP Location Tested BP Systolic BP Type 72 L arm 124 sitting Fetus Heart Rate Present A 145 Fetus Movement A Yes Comments Pt c/o pain on hips when sle eping. Occ tightening muscle on ankle and foot. Denies other c/o. MFM u/s reviewed. BS fasting intermitt elevated, adjusting diet per diesel instructor. PTL signs and symptoms reviewed. f/u 2wk. Flowsheet Date 01/05/2020 Jackson Score Blood Edema Fundus Height Fundus Units Glucose Ketones Leukocytes Nitrite Labor Signs Protein Cervic Dilation Cervic Effacement Cervic Station 32 none neg Type Weight in lbs Pre/Post Dialysis Refused With clothes 205.654584121693 BP Diastolic BP Location Tested BP Systolic [...] in lbs Pre/Post Dialysis Refused With clothes 205.844222497593 BP Diastolic BP Location Tested BP Systolic [...] in lbs Pre/Post Dialysis Refused With clothes 205.459686712912 BP Diastolic BP Location Tested BP Systolic [...] in lbs Pre/Post Dialysis Refused With clothes 204.483279992674 BP Diastolic BP Location Tested BP Systolic [...] in lbs Pre/Post Dialysis Refused With clothes 205.891526597984 BP Diastolic BP Location Tested BP Systolic BP Type 76 L arm 124 sitting Fetus Heart Rate Present A 140 Fetus Movement A Yes Comments ob/fu -NST today - Pt was se en by [facility] on Saturday02/09/2020 - Covid 19 test [...] in lbs Pre/Post Dialysis Refused With clothes 205.217446547956 BP Diastolic BP Location Tested BP Systolic [...] in lbs Pre/Post Dialysis Refused With clothes 201.224745823031 BP Diastolic BP Location Tested BP Systolic BP Type 80 L arm 120 sitting Fetus Heart Rate Present A 145 Fetus Movement A Yes Comments ob/fu - Pt was at [facility] L[facility] on Saturday due to having [...] in lbs Pre/Post Dialysis Refused With clothes 192.528203689258 BP Diastolic BP Location Tested BP Systolic [...] 09/22/2019 Toxoplasmosis precautions (cats/raw meat) [email or web address] 09/22/2019 Church [email or web address] 09/22/2019 Hospital choice [email or web address] 09/22/2019 Blood [...]
== END 2024-10-27 14:37 | disposition home or self-care (01) ==
LOC: HO.HOP 13:53
PROVIDERS: PCP Internal Medicine; Visit Provider Clinical Nurse Specialist Psychiatric/Mental Health
DX: F33.1 Major depressive disorder, recurrent, moderate (principal); F41.1 Generalized anxiety disorder; F90.2 Attention-deficit hyperactivity disorder, combined type
CPT/HCPCS: 99214

== ENCOUNTER → 2024-10-27 13:53 | Outpatient (BNVA) | payer OTHER, SELFPAY | PROVIDERS: PCP Internal Medicine; Visit Provider Clinical Nurse Specialist Psychiatric/Mental Health | DX: F33.1 Major depressive disorder, recurrent, moderate (principal); F41.1 Generalized anxiety disorder; F90.2 Attention-deficit hyperactivity disorder, combined type | CPT/HCPCS: 99212 ==

== ENCOUNTER 2024-11-24 12:52 | Outpatient (REF) | payer OTHER, SELFPAY ==
[2024-11-24 14:01] LABS: MANUAL DIFF FLAG NO
[2024-11-24 14:26] LABS: Hematocrit 37.7 % (37.0-47.0); Hemoglobin 13.4 g/dl (12.0-16.0); Imm Gran Abs Auto 0.03 X10*3/uL (0.00-0.03); Imm Gran Pct Auto 0.5 % (0.0-0.4); Lymphocytes Absolute Auto 1.9 X10*3/uL (1.2-4.9); Mean Corpuscular HGB Conc 35.5 g/dl (31.0-35.0); Mean Corpuscular Hemoglobin 30.2 pg (27.0-33.0); Mean Corpuscular Volume 85.1 fL (80.0-98.0); NRBC Abs Auto 0.000 X10*3/uL (0.0-0.012); NRBC Pct Auto 0.0 /100WBC (0.0-0.2); Platelet Count 265 X10*3/uL (160-400); Red Blood Count 4.43 X10*6/uL (4.20-5.50); White Blood Count 6.3 X10*3/uL (4.8-10.8)
[2024-11-24 14:55] LABS: Alanine Aminotransferase 28 U/L (0-31); Albumin Level 4.5 g/dL (3.5-5.0); Alkaline Phosphatase 66 U/L (39-117); Anion Gap 11 (12-20); Aspartate Amino Transferase 25 U/L (5-31); Blood Urea Nitrogen 10 mg/dL (9-16); Calcium 9.3 mg/dL (8.4-10.2); Carbon Dioxide 29 mmol/L (22-29); Chloride 106 mmol/L (96-108); Estimated Glomerular Filt Rate > 60; Potassium 3.7 mmol/L (3.3-5.1); Sodium 142 mmol/L (135-145); Total Protein 7.3 g/dL (6.5-8.0)
== END 2024-11-24 12:53 | disposition home or self-care (01) ==
LOC: HO.LAB 12:52
PROVIDERS: PCP Internal Medicine; Visit Provider Clinical Nurse Specialist Psychiatric/Mental Health
DX: F33.1 Major depressive disorder, recurrent, moderate (principal); F41.1 Generalized anxiety disorder; F90.2 Attention-deficit hyperactivity disorder, combined type; Z79.899 Other long term (current) drug therapy
CPT/HCPCS: 36415; 80053; 84443; 85025; 99212

== ENCOUNTER 2024-11-24 12:52 | Outpatient (AMB) | payer OTHER, SELFPAY ==
--- NOTE | 2024-11-24 12:58 | A.OFFPSYCH_ITS ---
Intake Intake Visit Reasons: follow up Paving Inspector Required: No Allergies latex Adverse Reaction (Mild, Verified 09/21/24 13:55) hives cefuroxime axetil Adverse Reaction (Uncoded 09/21/24 13:55) rash Medication List - Last Reconciled 11/24/24 by Lynn Kemp APRN cholecalciferol (vitamin D3) 125 mcg PO DAILY duloxetine 90 mg (3 x 30 mg) PO DAILY 30 days hydroxyzine HCl 25 mg PO TID PRN lisinopril-hydrochlorothiazide 10-12.5 mg 1 tab PO DAILY magnesium oxide 400 mg PO DAILY 30 days methylphenidate HCl ER (Concerta) 27 mg PO DAILY mirtazapine 7.5 mg PO BEDTIME 30 days Myrbetriq ER (mirabegron) 50 mg PO DAILY 90 days NS omega 5-npc-hpl-fish oil 100-160-1,000 mg (Fish Oil) caps PO prazosin 2 mg PO BEDTIME 30 days solifenacin (Vesicare) 5 mg PO DAILY 90 days HPI- Psychiatric Chief Complaint: follow up HPI Narrative: pt here for follow up re: mood, anxiety, and ADHD. Pt reports she has been very irritable; pt is sleeping better; she feels tired all the time- much more than usual. she is taking care of family members and has had less time to care for self. she is feeling more financial stress. She feel the concerta is helpful; pt is more anxious about her family and their health/safety; she denies SI or HI Past Psychiatric History: outpt tx since age 22. No IPLOC PAST MEDICTIONS: lexapro- increased anger wellbutrin- very negative/angry zoloft- woorked first time took - did not work on retrial prozac- ok for a bit and then stopped working effexor- excessive weight gain Subjective Subjective Subjective Medication Compliance: Yes Side effects from medications: No Review of Systems Medical Review of Systems: unchanged Mental Status Exam Mental Status Exam Patient Appearance: Well Grooomed Patient Orientation: Person, Place, Time and Situation Level of Consciousness: Awake Patient Behavior: Appropriate Mood Description: Cheerful and Anxious Affect Description: Cheerful and Anxious Patient Cognition Impaired: No Ability to Follow Directions: Good Speech Pattern: Clear and Excessive Memory Description: Intact Hallucinations: None Delusions: Not Present Thought Process: Intact Thought Content: positive for Intact and positive for Loose Associations Judgement: Fair Assessment and Plan Assessment & Plan (1) Major depressive disorder, recurrent, moderate: Status: Acute Code(s): F33.1 - Major depressive disorder, recurrent, moderate (2) SAMMY (generalized anxiety disorder): Status: Acute Code(s): F41.1 - Generalized anxiety disorder (3) ADHD (attention deficit hyperactivity disorder), combined type: Status: Acute Code(s): F90.2 - Attention-deficit hyperactivity disorder, combined type (4) Fatigue: Status: Acute Qualifiers: Fatigue type: unspecified Qualified Code(s): R53.83 - Other fatigue Code(s): R53.83 - Other fatigue Plan decrease remeron to 1/2 tab at bedtime continue duloxetine continue concerta and prazosin blood work due to severe fatigue Medications: Changed From mirtazapine 7.5 mg PO BEDTIME 30 days 30 tabs 2RF To mirtazapine 3.75 mg (1/2 x 7.5 mg) PO BEDTIME 45 tabs 2RF 90 days Orders: Orders Comprehensive Met. Panel Today R53.83 - Other fatigue TSH reflex Free T4 Today F33.1 - Major depressive disorder, recurrent, moderate, R53.83 - Other fatigue Complete Blood Count Auto Diff Today F33.1 - Major depressive disorder, recurrent, moderate, R53.83 - Other fatigue Counseling and coordination of Care Pt. Self Management counseling: Med illness tx adherence, Mod caffeine/ETOH intake, Nutrition education and improvement, Sleep hygiene, Behavior activation and Problem solving Medication management counseling: Effectiveness, Side effects, Dosing range, Duration, Drug interaction and Adherence Diagnosis and Prognosis Counseling: Accuracy of diagnosis, Prognosis over time, Impact of diagnosis on life functions, Impact of family relationship, Problematic behaviors secondary to diagnosis and Adequacy of current interventions Details: I spent 40 minutes reviewing the record, seeing the patient and documenting in the medical record. Counseling provided to the patient/caregiver as outlined below. Addressed patient/caregiver concerns regarding current medication regime including effective adherence. Addressed patient/caregiver concerns regarding diagnosis and prognosis including accuracy of diagnosis, prognosis over time, impact of diagnosis. Addressed patient/caregiver concerns regarding impact of recent stressors. [facility] Medical History Nausea and vomiting in adult Acute respiratory disease Major depressive disorder, recurrent, severe with psychotic features Decreased hearing Tinnitus Reduced visual acuity Pyelonephritis (03/22/15) (08/04/19) Obesity (12/12/18) Migraine Menorrhagia Irritable bowel syndrome Insomnia Hiatal hernia Hemorrhoids Gastroesophageal reflux disease Fracture of hand (04/22/09) Female stress incontinence Blood in urine Severe carpal tunnel syndrome of right wrist Medical clearance for psychiatric admission Hypertriglyceridemia Positive Tinel's sign Positive Phalen maneuver Cervicalgia HTN (hypertension) Decreased hearing of both ears Environmental and seasonal allergies Tinnitus of both ears Knee pain Excessive daytime sleepiness Loud snoring Vitamin D deficiency Impaired fasting glucose Mixed dyslipidemia Morbid obesity Hiatal hernia with gastroesophageal reflux Family history of premature CAD Annual visit for general adult medical examination with abnormal findings Surgical History H/O endoscopy H/O wisdom tooth extraction Family History Father Substance use disorder Mental health disorder Alcoholism Myocardial infarction acute, Onset Age: 55 Depression Maternal Uncle Testicular cancer Social History Household Members: Family Household Members Other:: and 2 children Housing: House Do you presently have visiting nurse or other home services: No Alcohol intake: current Alcohol intake frequency: holidays/special occasions only Patient Tobacco Use Status: Never used Tobacco e-Cigarette/Vaping Use: Never Used Substance Use Type: Marijuana service: No Current occupational status: unemployed and other 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 family has moved around a lot due to pt grew up in [place]. lived with both parents; after her father lost his job they all moved in with grandmother; family experienced severe poverty- very traumatic. no running water, no food, no electricity at times. no telephone, no flushing toilets no lights. Father became ETOHIC and massive heart attack at age 55. Pt has 3 siblings. Substance History: none Trauma History: childhood severe poverty Coding Level of Care Code Est Pt Level 4 (20038) Diagnoses Major depressive disorder, recurrent, moderate F33.1 SAMMY (generalized anxiety disorder) F41.1 ADHD (attention deficit hyperactivity disorder), combined type F90.2 Fatigue, unspecified type R53.83 Fatigue type: unspecified
--- OUTSIDE RECORDS SUMMARY | 2024-11-24 13:26 | XMS_ITS | Continuity of Care Document ---
Author Name [facility] Organization [facility] Care Team Providers Care Pillowcase Turner Name Role Phone [facility] Unavailable Unavailable Medications Combined list of outpatient medications from Department of Defense and Veterans Affairs facilities.Medications provided include 1) outpatient medications from the last 15 months, and 2) patient-reported medications. Medication Details Route Status Patient Instructions Prescription Expires Prescription Number Last Dispense Date Ordering Provider Order Date Order Qty Source DIAZEPAM (DIAZEPAM), 5MG, TABLET, ORAL, IVAX PHARMACEUT, 100 ea. BOTTLE Active [id number] 4 2023 10 Pharmac y Data Transac tion Service Facilit y LIDOCAINE (lidocaine) , 5 %, ADH. PATCH, TOPICAL, AMNEAL PHARMACE, 30 ea. BOX Active [id number] 4 2023 30 Pharmac y Data Transac tion Service Facilit y LISINOPRIL- HCTZ (LISINOPRIL /HYDROCHLOR OTHIAZIDE), 10-12.5MG, TABLET, ORAL, LUPIN PHARMACEU, 100 ea. BOTTLE Active [id number] 4 2023 30 Pharmac y Data Transac tion Service Facilit y LISINOPRIL- HCTZ (LISINOPRIL /HYDROCHLOR OTHIAZIDE), 10-12.5MG, TABLET, ORAL, LUPIN PHARMACEU, 100 ea. BOTTLE Active [id number] 2023 30 Pharmac y Data Transac [...] More [facility] Facilities WREATH MAKER ADHESIVES Propensity to adverse reaction (finding) active 0 [facility] Adhesives Allergy to substance Active One or More [facility] Facilities WREATH MAKER HYDROCODONE Drug allergy (disorder) active 0 [facility] Latex Drug allergy Active One or More [facility] Facilities WREATH MAKER LATEX GLOVE Propensity to adverse reactions to drug (finding) active 0 [facility] VICODIN Propensity to adverse reactions to drug (finding) active 0 [facility] Immunizations Combined list of available immunizations from the Department of Defense and Veterans Affairs facilities. Immunization Series Date Given Administered By Site Reaction Lot Number CVX Code Drug Schedule Planning Manager Status Comments Source COVID-19, mRNA, LNP-S, PF, 30 mcg/0.3 mL dose 2020 [place] (PFR) Not Given COVID-19, mRNA, LNP-S, PF, 30 mcg/0.3 mL dose DoD COVID-19, mRNA, LNP-S, PF, 30 mcg/0.3 mL dose 2020 GLUSHAK, [place] (PFR) Not Given COVID-19, mRNA, LNP-S, PF, 30 mcg/0.3 mL dose DoD COVID-19, mRNA, LNP-S, PF, 30 mcg/0.3 mL dose 2020 GLUSHAK, [place] (PFR) Not Given COVID-19, mRNA, LNP-S, [...] More [facility] Facilities WREATH MAKER Diastolic Blood Pressure 78 mm[Hg] 02/04/2020 20:15:44 One or More [facility] Facilities WREATH MAKER Procedures Combined list of: 1) Procedures from [...] section is an empty social history section. [employer] Assessment and Plan Combined list of future care activities from Department of Defense and Veterans Affairs facilities (e.g., assessment and plan notes, appointments, orders, and referrals). Additional future care activities may be listed in the Plan of Care section. Result Assessment and Plan Date Source Assessment and Plan No data available for this section 11/24/2024 Ambulatory Pharmacy Functional Status Combined list of recent functional and cognitive assessments recorded at Department of Defense and Veterans Affairs (VA).VA Functional [place] Measurement (FIM) Scale: 1 = Total Assistance (Subject = 0% +), 2 = Maximal Assistance (Subject = 25% +), 3 = Moderate Assistance (Subject = 50% +), 4 = Minimal Assistance (Subject = 75% +), 5 = Supervision, 6 = Modified [place] (Device), 7 = Complete [place] (Timely, Safely). Assessment Date/Time Source Assessment Type Assessment Skill Assessment Score Assessment Details No data available for this section
== END 2024-11-24 13:42 | disposition home or self-care (01) ==
LOC: HO.HOP 12:52
PROVIDERS: PCP Internal Medicine; Visit Provider Clinical Nurse Specialist Psychiatric/Mental Health
DX: F33.1 Major depressive disorder, recurrent, moderate (principal); F41.1 Generalized anxiety disorder; F90.2 Attention-deficit hyperactivity disorder, combined type; R53.83 Other fatigue
CPT/HCPCS: 99214

== ENCOUNTER 2024-12-22 11:09 | Outpatient (AMB) | payer OTHER, SELFPAY ==
--- NOTE | 2024-12-22 11:09 | A.OFFPSYCH_ITS ---
Intake Intake Visit Reasons: f/u consultation Pediatrics Hospitalist Required: No Allergies latex Adverse Reaction (Mild, Verified 09/21/24 13:55) hives cefuroxime axetil Adverse Reaction (Uncoded 09/21/24 13:55) rash Medication List - Last Reconciled 12/22/24 by Lynn Kemp APRN cholecalciferol (vitamin D3) 125 mcg PO DAILY duloxetine 90 mg (3 x 30 mg) PO DAILY 30 days hydroxyzine HCl 25 mg PO TID PRN lisinopril-hydrochlorothiazide 10-12.5 mg 1 tab PO DAILY magnesium oxide 400 mg PO DAILY 30 days methylphenidate HCl ER (Concerta) 27 mg PO DAILY mirtazapine 3.75 mg (1/2 x 7.5 mg) PO BEDTIME 90 days Myrbetriq ER (mirabegron) 50 mg PO DAILY 90 days NS omega 8-mzd-zds-fish oil 100-160-1,000 mg (Fish Oil) caps PO prazosin 2 mg PO BEDTIME 30 days solifenacin (Vesicare) 5 mg PO DAILY 90 days HPI- Psychiatric Chief Complaint: f/u consultation HPI Narrative: pt here for follow up re: mood, anxiety, and ADHD. Pt reports she is less irritable; she is very tired during the day but can't sleep at night; reports that around 930pm she feels wide awake. she is not taking the hydroxyzine prn at night due to feeling tired during the day but she still feels very tired despite that. we reviewed her labs and all essentially normal. she denies SI or HI Past Psychiatric History: outpt tx since age 22. No IPLOC PAST MEDICTIONS: lexapro- increased anger wellbutrin- very negative/angry zoloft- woorked first time took - did not work on retrial prozac- ok for a bit and then stopped working effexor- excessive weight gain Subjective Subjective Subjective Medication Compliance: Yes Side effects from medications: No Review of Systems Medical Review of Systems: unchanged Mental Status Exam Mental Status Exam Patient Appearance: Well Grooomed Patient Orientation: Person, Place, Time and Situation Level of Consciousness: Awake Patient Behavior: Appropriate, Cooperative and Fatigued Mood Description: Cheerful Affect Description: Cheerful Patient Cognition Impaired: No Ability to Follow Directions: Good Speech Pattern: Clear, Appropriate and Coherent Memory Description: Intact Hallucinations: None Delusions: Not Present Thought Process: Intact Thought Content: positive for Intact and positive for Loose Associations Judgement: Fair Assessment and Plan Assessment & Plan (1) Major depressive disorder, recurrent, moderate: Status: Acute Code(s): F33.1 - Major depressive disorder, recurrent, moderate (2) SAMMY (generalized anxiety disorder): Status: Acute Code(s): F41.1 - Generalized anxiety disorder (3) ADHD (attention deficit hyperactivity disorder), combined type: Status: Acute Code(s): F90.2 - Attention-deficit hyperactivity disorder, combined type (4) Fatigue: Status: Acute Qualifiers: Fatigue type: unspecified Qualified Code(s): R53.83 - Other fatigue Code(s): R53.83 - Other fatigue Plan continue remeron to 1/2 tab at bedtime change the duloxetine to 30mg in am and 60mg at bedtime add back the hydroxyzine prn sleep add small amount of table salt and foods with potassium: fruits,vegetables, especially banana, kiwi, v8 juice. continue concerta and prazosin Medications: Refilled duloxetine 90 mg (3 x 30 mg) PO DAILY 90 caps 2RF 30 days hydroxyzine HCl 25 mg PO TID PRN 90 tabs 1RF itching methylphenidate HCl ER (Concerta) Partial Fill upon patient request. 27 mg PO DAILY 30 tabs 0RF mirtazapine 3.75 mg (1/2 x 7.5 mg) PO BEDTIME 45 tabs 2RF 90 days prazosin 2 mg PO BEDTIME 30 caps 2RF 30 days Counseling and coordination of Care Pt. Self Management counseling: Med illness tx adherence, Mod caffeine/ETOH intake, Nutrition education and improvement, Sleep hygiene, Behavior activation and Problem solving Medication management counseling: Effectiveness, Side effects, Dosing range, Duration, Drug interaction and Adherence Diagnosis and Prognosis Counseling: Accuracy of diagnosis, Prognosis over time, Impact of diagnosis on life functions, Impact of family relationship, Problematic behaviors secondary to diagnosis and Adequacy of current interventions Details: I spent 40 minutes reviewing the record, seeing the patient and documenting in the medical record. Counseling provided to the patient/caregiver as outlined below. Addressed patient/caregiver concerns regarding current medication regime including effective adherence. Addressed patient/caregiver concerns regarding diagnosis and prognosis including accuracy of diagnosis, prognosis over time, impact of diagnosis. Addressed patient/caregiver concerns regarding impact of recent stressors. [facility] Medical History Nausea and vomiting in adult Acute respiratory disease Major depressive disorder, recurrent, severe with psychotic features Decreased hearing Tinnitus Reduced visual acuity Pyelonephritis (03/22/15) (08/04/19) Obesity (12/12/18) Migraine Menorrhagia Irritable bowel syndrome Insomnia Hiatal hernia Hemorrhoids Gastroesophageal reflux disease Fracture of hand (04/22/09) Female stress incontinence Blood in urine Severe carpal tunnel syndrome of right wrist Medical clearance for psychiatric admission Hypertriglyceridemia Positive Tinel's sign Positive Phalen maneuver Cervicalgia HTN (hypertension) Decreased hearing of both ears Environmental and seasonal allergies Tinnitus of both ears Knee pain Excessive daytime sleepiness Loud snoring Vitamin D deficiency Impaired fasting glucose Mixed dyslipidemia Morbid obesity Hiatal hernia with gastroesophageal reflux Family history of premature CAD Annual visit for general adult medical examination with abnormal findings Surgical History H/O endoscopy H/O wisdom tooth extraction Family History Father Substance use disorder Mental health disorder Alcoholism Myocardial infarction acute, Onset Age: 56 Depression Maternal Uncle Testicular cancer Social History Household Members: Family Household Members Other:: and 2 children Housing: House Do you presently have visiting nurse or other home services: No Alcohol intake: current Alcohol intake frequency: holidays/special occasions only Patient Tobacco Use Status: Never used Tobacco e-Cigarette/Vaping Use: Never Used Substance Use Type: Marijuana service: No Current occupational status: unemployed and other 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 family has moved around a lot due to pt grew up in [place]. lived with both parents; after her father lost his job they all moved in with grandmother; family experienced severe poverty- very traumatic. no running water, no food, no electricity at times. no telephone, no flushing toilets no lights. Father became ETOHIC and massive heart attack at age 55. Pt has 3 siblings. Substance History: none Trauma History: childhood severe poverty Coding Level of Care Code Est Pt Level 4 (22241) Diagnoses Major depressive disorder, recurrent, moderate F33.1 SAMMY (generalized anxiety disorder) F41.1 ADHD (attention deficit hyperactivity disorder), combined type F90.2 Fatigue, unspecified type R53.83 Fatigue type: unspecified
--- OUTSIDE RECORDS SUMMARY | 2024-12-22 12:41 | XMS_ITS | Continuity of Care Document ---
Author Name [facility] Organization [facility] Care Team Providers Care Silviculture Forester Name Role Phone [facility] Unavailable Unavailable Medications Combined list of outpatient medications from Department of [facility] and [facility] facilities.Medications provided include 1) outpatient medications from the last 15 months, and 2) patient-reported medications. Medication Details Route Status Patient Instructions Prescription Expires Prescription Number Last Dispense Date Ordering Provider Order Date Order Qty Source DIAZEPAM (DIAZEPAM), 5MG, TABLET, ORAL, IVAX PHARMACEUT, 100 ea. BOTTLE Active [id number] 4 2023 10 Pharmac y Data Transac tion Service Facilit y LIDOCAINE (lidocaine) , 5 %, ADH. PATCH, TOPICAL, AMNEAL PHARMACE, 30 ea. BOX Active [id number] 4 2023 30 Pharmac y Data Transac tion Service Facilit y Allergies, Adverse Reactions, Alerts Combined list of allergies from Department of [facility] and Veterans Affairs facilities. It does not include entries that were removed or entered in error. Substance Category Reaction Severity Reaction type Status Date Reported Comments Source acetaminophe n-hydrocodon e Drug allergy Active One or More [facility] Facilities RATE SETTER ADHESIVES Propensity to adverse reaction (finding) active 0 [facility] Adhesives Allergy to substance Active One or More [facility] Facilities RATE SETTER HYDROCODONE Drug allergy (disorder) active 0 [facility] Latex Drug allergy Active One or More [facility] Facilities RATE SETTER LATEX GLOVE Propensity to adverse reactions to drug (finding) active 0 [facility] VICODIN Propensity to adverse reactions to drug (finding) active 0 [facility] Immunizations Combined list of available immunizations from the Department of Defense and Veterans Affairs facilities. Immunization Series Date Given Administered By Site Reaction Lot Number CVX Code Drug Staff Trainer Status Comments Source COVID-19, mRNA, LNP-S, PF, 30 mcg/0.3 mL dose 2020 GLUSHAK, [employer] [place] (PFR) Not Given COVID-19, mRNA, LNP-S, PF, 30 mcg/0.3 mL dose DoD COVID-19, mRNA, LNP-S, PF, 30 mcg/0.3 mL dose 2020 GLUSHAK, [employer] [place] (PFR) Not Given COVID-19, mRNA, LNP-S, PF, 30 mcg/0.3 mL dose DoD COVID-19, mRNA, LNP-S, PF, 30 mcg/0.3 mL dose 2020 GLUSHAK, [employer] [place] (PFR) Not Given COVID-19, mRNA, LNP-S, PF, 30 mcg/0.3 mL dose DoD Vital Signs Combined list of inpatient and outpatient Vital Signs from Department of Defense and Veterans Affairs, ranging from 12 months to all on record, depending upon the facility. Vital Sign Value Date Comments Source Systolic Blood Pressure 132 mm[Hg] 02/04/20 20:15:44 One or More [facility] Facilities RATE SETTER Diastolic Blood Pressure 78 mm[Hg] 02/04/2020 20:15:44 One or More [facility] Facilities RATE SETTER Procedures Combined list of: 1) Procedures from Department of Veterans Affairs facilities going back up to thelast 18 months, not all [place] non-surgical procedures are included; 2) All procedures from the Department of [facility] facilities. Procedure Procedure Type Code Date Perfomer [...] Plan No data available for this section 12/22/2024 Ambulatory Pharmacy Functional Status Combined list of recent functional and cognitive assessments recorded at [facility] of Defense and [facility] ([facility]).VA Functional [place] Measurement (FIM) Scale: 1 = Total Assistance (Subject = 0% +), 2 = Maximal Assistance (Subject = 25% +), 3 = Moderate Assistance (Subject = 50% +), 4 = Minimal Assistance (Subject = 75% +), 5 = Supervision, 6 = Modified [place] (Device), 7 = Complete [place] (Timely, Safely). Assessment Date/Time Source Assessment Type Assessment Skill Assessment Score Assessment Details No data available for this section
== END 2024-12-22 11:35 | disposition home or self-care (01) ==
LOC: HO.HOP 11:09
PROVIDERS: PCP Internal Medicine; Visit Provider Clinical Nurse Specialist Psychiatric/Mental Health
DX: F33.1 Major depressive disorder, recurrent, moderate (principal); F41.1 Generalized anxiety disorder; F90.2 Attention-deficit hyperactivity disorder, combined type; R53.83 Other fatigue
CPT/HCPCS: 99214

== ENCOUNTER → 2024-12-22 11:09 | Outpatient (BNVA) | payer OTHER, SELFPAY | PROVIDERS: PCP Internal Medicine; Visit Provider Clinical Nurse Specialist Psychiatric/Mental Health | DX: F33.1 Major depressive disorder, recurrent, moderate (principal); F41.1 Generalized anxiety disorder; F90.2 Attention-deficit hyperactivity disorder, combined type; R53.83 Other fatigue | CPT/HCPCS: 99212 ==

== ENCOUNTER 2025-02-02 10:57 | Outpatient (AMB) | payer OTHER, SELFPAY ==
--- NOTE | 2025-02-02 10:59 | MHC.OFFVISPS ---
Intake Intake Visit Reasons: follow up Customer Service Receptionist Required: No Allergies latex Adverse Reaction (Mild, Verified 09/21/24 13:55) hives cefuroxime axetil Adverse Reaction (Uncoded 09/21/24 13:55) rash Medication List - Last Reconciled 02/02/25 by Lynn Kemp APRN cholecalciferol (vitamin D3) 125 mcg PO DAILY duloxetine 90 mg (3 x 30 mg) PO DAILY 30 days hydroxyzine HCl 25 mg PO TID PRN lisinopril-hydrochlorothiazide 10-12.5 mg 1 tab PO DAILY magnesium oxide 400 mg PO DAILY 30 days methylphenidate HCl ER (Concerta) 27 mg PO DAILY mirtazapine 3.75 mg (1/2 x 7.5 mg) PO BEDTIME 90 days Myrbetriq ER (mirabegron) 50 mg PO DAILY 90 days NS omega 1-gbi-gjk-fish oil 100-160-1,000 mg (Fish Oil) caps PO prazosin 2 mg PO BEDTIME 30 days solifenacin (Vesicare) 5 mg PO DAILY 90 days HPI- Psychiatric Chief Complaint: follow up HPI Narrative: pt here for follow up re: mood, anxiety, and ADHD. Pt reports she is less irritable; She is struggling due to high stress; family finanaces are hard due to gov. shut down and no pay check for ; in laws are helping but very stressful for family. PHQ9= 7 and GAD7= 11. She denies SI or Hi. Past Psychiatric History: outpt tx since age 22. No IPLOC PAST MEDICTIONS: lexapro- increased anger wellbutrin- very negative/angry zoloft- woorked first time took - did not work on retrial prozac- ok for a bit and then stopped working effexor- excessive weight gain Subjective Subjective Subjective Medication Compliance: Yes Side effects from medications: No Review of Systems Medical Review of Systems: unchanged Mental Status Exam Mental Status Exam Patient Appearance: Well Grooomed Patient Orientation: Person, Place, Time and Situation Level of Consciousness: Awake and Alert Patient Behavior: Appropriate, Cooperative, Anxious, Fatigued and Good Eye Contact Mood Description: Depressed and Anxious Affect Description: Depressed and Anxious Patient Cognition Impaired: No Ability to Follow Directions: Good Speech Pattern: Clear, Appropriate and Coherent Memory Description: Intact Hallucinations: None Delusions: Not Present Thought Process: Intact Thought Content: positive for Intact and positive for Loose Associations Judgement: Fair Assessment and Plan Assessment & Plan (1) Major depressive disorder, recurrent, moderate: Status: Acute Code(s): F33.1 - Major depressive disorder, recurrent, moderate (2) SAMMY (generalized anxiety disorder): Status: Acute Code(s): F41.1 - Generalized anxiety disorder (3) ADHD (attention deficit hyperactivity disorder), combined type: Status: Acute Code(s): F90.2 - Attention-deficit hyperactivity disorder, combined type (4) Fatigue: Status: Acute Qualifiers: Fatigue type: unspecified Qualified Code(s): R53.83 - Other fatigue Code(s): R53.83 - Other fatigue Plan continue remeron to 1/2 tab at bedtime duloxetine to 30mg in am and 60mg at bedtime hydroxyzine prn sleep add small amount of table salt and foods with potassium: fruits,vegetables, especially banana, kiwi, v8 juice. continue concerta and prazosin add low dose alprazolam prn panic for short period Medications: New alprazolam (Xanax) 0.5 mg PO DAILY PRN 30 tabs 1RF panic attack(s) Refilled methylphenidate HCl ER (Concerta) Partial Fill upon patient request. 27 mg PO DAILY 30 tabs 0RF Counseling and coordination of Care Pt. Self Management counseling: Med illness tx adherence, Mod caffeine/ETOH intake, Nutrition education and improvement, Sleep hygiene, Behavior activation and Problem solving Medication management counseling: Effectiveness, Side effects, Dosing range, Duration, Drug interaction and Adherence Diagnosis and Prognosis Counseling: Accuracy of diagnosis, Prognosis over time, Impact of diagnosis on life functions, Impact of family relationship, Problematic behaviors secondary to diagnosis and Adequacy of current interventions Details: I spent 40 minutes reviewing the record, seeing the patient and documenting in the medical record. Counseling provided to the patient/caregiver as outlined below. Addressed patient/caregiver concerns regarding current medication regime including effective adherence. Addressed patient/caregiver concerns regarding diagnosis and prognosis including accuracy of diagnosis, prognosis over time, impact of diagnosis. Addressed patient/caregiver concerns regarding impact of recent stressors. [facility] Medical History Nausea and vomiting in adult Acute respiratory disease Major depressive disorder, recurrent, severe with psychotic features Decreased hearing Tinnitus Reduced visual acuity Pyelonephritis (03/22/15) (08/04/19) Obesity (12/12/18) Migraine Menorrhagia Irritable bowel syndrome Insomnia Hiatal hernia Hemorrhoids Gastroesophageal reflux disease Fracture of hand (04/22/09) Female stress incontinence Blood in urine Severe carpal tunnel syndrome of right wrist Medical clearance for psychiatric admission Hypertriglyceridemia Positive Tinel's sign Positive Phalen maneuver Cervicalgia HTN (hypertension) Decreased hearing of both ears Environmental and seasonal allergies Tinnitus of both ears Knee pain Excessive daytime sleepiness Loud snoring Vitamin D deficiency Impaired fasting glucose Mixed dyslipidemia Morbid obesity Hiatal hernia with gastroesophageal reflux Family history of premature CAD Annual visit for general adult medical examination with abnormal findings Surgical History H/O endoscopy H/O wisdom tooth extraction Family History Father Substance use disorder Mental health disorder Alcoholism Myocardial infarction acute, Onset Age: 56 Depression Maternal Uncle Testicular cancer Social History Household Members: Family Household Members Other:: and 2 children Housing: House Do you presently have visiting nurse or other home services: No Alcohol intake: current Alcohol intake frequency: holidays/special occasions only Patient Tobacco Use Status: Never used Tobacco e-Cigarette/Vaping Use: Never Used Substance Use Type: Marijuana service: No Current occupational status: unemployed and other 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 family has moved around a lot due to pt grew up in [place] [facility] [place]. lived with both parents; after her father lost his job they all moved in with grandmother; family experienced severe poverty- very traumatic. no running water, no food, no electricity at times. no telephone, no flushing toilets no lights. Father became ETOHIC and massive heart attack at age 55. Pt has 3 siblings. Substance History: none Trauma History: childhood severe poverty Coding Level of Care Code Est Pt Level 4 (31646) Diagnoses Major depressive disorder, recurrent, moderate F33.1 SAMMY (generalized anxiety disorder) F41.1 ADHD (attention deficit hyperactivity disorder), combined type F90.2 Fatigue, unspecified type R53.83 Fatigue type: unspecified
== END 2025-02-02 11:59 | disposition home or self-care (01) ==
LOC: HO.HOP 10:57
PROVIDERS: PCP Internal Medicine; Visit Provider Clinical Nurse Specialist Psychiatric/Mental Health
DX: F33.1 Major depressive disorder, recurrent, moderate (principal); F41.1 Generalized anxiety disorder; F90.2 Attention-deficit hyperactivity disorder, combined type; R53.83 Other fatigue
CPT/HCPCS: 99214

== ENCOUNTER → 2025-02-02 10:57 | Outpatient (BNVA) | payer OTHER, SELFPAY | PROVIDERS: PCP Internal Medicine; Visit Provider Clinical Nurse Specialist Psychiatric/Mental Health | DX: F33.1 Major depressive disorder, recurrent, moderate (principal); F41.1 Generalized anxiety disorder; F90.2 Attention-deficit hyperactivity disorder, combined type | CPT/HCPCS: 99212 ==

== ENCOUNTER 2025-02-08 09:29 | Outpatient (REF) | payer OTHER, SELFPAY ==
[2025-02-08 13:19] LABS: Appearance Urine Clear; Glucose Urine UA Negative (Negative); PH 5.0 (5.0-9.0); Specific Gravity - Urine 1.010 (1.005-1.025); UMIC TRIGGER UA YES
== END 2025-02-08 09:30 | disposition home or self-care (01) ==
LOC: HO.HMGCLDS 09:29
PROVIDERS: PCP Internal Medicine; Visit Provider Nurse Practitioner Family
DX: N30.01 Acute cystitis with hematuria (principal)
CPT/HCPCS: 81001; 87086; 87147

== ENCOUNTER 2025-03-03 10:50 | Emergency (ER) | payer OTHER, SELFPAY ==
[2025-03-03 11:04] VITALS: BP 148/100; BP 190/100; PULSE 130; PULSE 94; RESP 20; TEMP 36.6; O2SAT 99; BMI 49.1
--- NOTE | 2025-03-03 12:05 | ED_ITS ---
HPI - Psych General Chief Complaint: Psychiatric Symptoms Stated Complaint: CRISIS,UPSET D/T HOUSE WARRANT/HUSBANDS ARREST Time Seen by Provider: 03/03/25 11:14 History of Present Illness ED Provider: jarred HPI Narrative: 44 F comes in for SI. The patient has 3 children 2 of which are locally at school and are Minors. She expressed suicidal ideation and headache. Exacerbated by the arrest of her partner Related Data Home Medications ?Medication ?Instructions ?Recorded ?Confirmed cholecalciferol (vitamin D3) 125 125 mcg PO DAILY 05/2302/02/25 mcg (5,000 unit) capsule omega 7-ywb-rxn-fish oil 100 cap PO 06/03/24 02/02/25 mg-160 mg-1,000 mg capsule (Fish Oil) Previous Rx's ?Medication ?Instructions ?Recorded Myrbetriq 50 mg tablet,extended 50 mg PO DAILY 90 days #90 tabs 09/03/24 release (mirabegron) solifenacin 5 mg tablet (Vesicare) 5 mg PO DAILY 90 da ys #90 tabs 09/03/24 duloxetine 30 mg capsule,delayed 90 mg (3 x 30 mg) PO DAILY 30 days 12/22/24 release #90 caps hydroxyzine HCl 25 mg tablet 25 mg PO TID PRN itching #90 tabs 12/22/24 mirtazapine 7.5 mg tablet 3.75 mg (1/2 x 7.5 mg) PO BE DTIME 12/22/24 90 days #45 tabs prazosin 2 mg capsule 2 mg PO BEDTIME 30 days #30 caps 12/22/24 lisinopril 10 1 tab PO DAILY #90 tabs 12/21 11/13 mg-hydrochlorothiazide 12.5 mg tablet alprazolam 0.5 mg tablet (Xanax) 0.5 mg PO DAILY PRN p anic 02/02/25 attack(s) #30 tabs methylphenidate HCl 27 mg 27 mg PO DAILY #30 tabs 01/20 08/14 tablet,extended release 24 hr (Concerta) amoxicillin 500 mg-potassium 1 tab PO Q8H 7 days #21 t abs 02/09/25 clavulanate 125 mg tablet (Augmentin) magnesium oxide 400 mg PO DAILY 30 days #30 tabs 03/01/25 Allergies Allergy/AdvReac Type Severity Reaction Status Date / Time latex AdvReac Mild hives Verified 03/03/25 11:06 cefuroxime axetil AdvReac rash Uncoded 09/21/24 13:55 [facility] Past Medical History Medical History Nausea and vomiting in adult Acute respiratory disease Major depressive disorder, recurrent, severe with psychotic features Decreased hearing Tinnitus Reduced visual acuity Pyelonephritis (03/22/15) (08/04/19) Obesity (12/12/18) Migraine Menorrhagia Irritable bowel syndrome Insomnia Hiatal hernia Hemorrhoids Gastroesophageal reflux disease Fracture of hand (04/22/09) Female stress incontinence Blood in urine Severe carpal tunnel syndrome of right wrist Medical clearance for psychiatric admission Hypertriglyceridemia Positive Tinel's sign Positive Phalen maneuver Cervicalgia HTN (hypertension) Decreased hearing of both ears Environmental and seasonal allergies Tinnitus of both ears Knee pain Excessive daytime sleepiness Loud snoring Vitamin D deficiency Impaired fasting glucose Mixed dyslipidemia Morbid obesity Hiatal hernia with gastroesophageal reflux Family history of premature CAD Annual visit for general adult medical examination with abnormal findings Surgical History H/O endoscopy H/O wisdom tooth extraction Family History Family History Father Substance use disorder Mental health disorder Alcoholism Myocardial infarction acute, Onset Age: 55 Depression Maternal Uncle Testicular cancer Social History Social History Household Members: Family Household Members Other:: and 2 children Housing: House Do you presently have visiting nurse or other home services: No Alcohol intake: current Alcohol intake frequency: holidays/special occasions only Patient Tobacco Use Status: Never used Tobacco e-Cigarette/Vaping Use: Never Used Substance Use Type: Marijuana service: No Current occupational status: unemployed and other 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 Head: Atraumatic Eyes: Anicteric, Normal conjunctiva. ENT: Moist mucosa, no pallor. ? Neck: Supple. Skin: ?No observable rash or bruising on exposed or examined skin Respiratory: Breathing comfortably, No distress.Clear to auscultation bilaterally, symmetric chest expansion, No wheeze, rales, ronchi. Cardiovascular: Regular rate and rhythm. No murmurs or rub. Well perfused periphery, warm extremities. No edema. ? Abdominal: No focal tenderness. Soft, no objective distension. No palpable masses or obvious organomegaly. ?No guarding, no rebound tenderness or other peritoneal findings. : No flank tenderness. Neuro: Alert. Gross movement of all extremities intact. ? Psych: Calm. Cooperative. MSK: No grossly visible deformity. Vital signs: See flowsheet Vital Signs: Vital Signs: Last Vital Signs Temp 97.8 F 03/03/25 15:08 Pulse 94 03/03/25 15:08 Resp 20 03/03/25 15:08 BP 148/100 H 03/03/25 15:08 Pulse Ox 99 03/03/25 15:08 O2 Del Method Room Air 03/03/25 15:08 BMI result Body Mass Index 49.1 Medical Decision Making Medical Decision Making MDM Narrative: Medical Decision Making: [age] female with suicidal ideation. She no longer feels suicidal after care team evaluation and during my interview. She is sad and tearful DCF in the department actively involved with a securing and making sure her children are safe. I discussed this at length with care team we both feel the patient is safe not actively suicidal. Preliminary Favored Differential Diagnosis: Grief, depression, suicidal among additional considered etiologies Testing Interpreted Independently: ?See below for details Radiology or Lab testing Results Reviewed: ?See below for details Consults: ?See below for details Independent Historians/External Chart Reviews: ?See below for details Social Determinants of Health Impacting MDM/Planning: ?See below for details Lab Data 03/03/25 13:12 03/03/25 13:12 Labs: Lab Results 03/03/25 Range/Units 13:12 WBC 9.0 (4.8-10.8) X10*3/uL RBC 4.38 (4.20-5.50) X10*6/uL Hgb 13.4 (12.0-16.0) g/dl Hct 37.8 (37.0-47.0) % MCV 86.3 (80.0-98.0) fL MCH 30.6 (27.0-33.0) pg MCHC 35.4 H (31.0-35.0) g/dl RDW 13.3 (11.0-16.0) % Plt Count 246 (160-400) X10*3/uL MPV 8.7 L (9.4-12.3) fL Immature Gran % (Auto) 0.4 (0.0-0.4) % Neut % (Auto) 79.2 H (45-73) % Lymph % (Auto) 13.8 L (20-40) % Alfalfa % (Auto) 3.8 (2-11) % Eos % (Auto) 2.4 (0-4) % Baso % (Auto) 0.4 (0-2) % Lymph # (Auto) 1.2 (1.2-4.9) X10*3/uL Alfalfa # (Auto) 0.3 (0.1-1.2) X10*3/uL Eos # (Auto) 0.2 (0.0-0.4) X10*3/uL Baso # (Auto) 0.0 (0.0-0.2) X10*3/uL Abs Immat Gran (auto) 0.04 H (0.00-0.03) X10*3/uL Absolute Neuts (auto) 7.1 (2.0-8.3) x10*3/uL Absolute Nucleated RBC 0.000 (0.0-0.012) X10*3/uL Nucleated RBC % (auto) 0.0 (0.0-0.2) /100WBC Sodium 140 (135-145) mmol/L Potassium 4.4 (3.3-5.1) mmol/L Chloride 106 (96-108) mmol/L Carbon Dioxide 27 (22-29) mmol/L Anion Gap 11 L (12-20) BUN 10 (9-16) mg/dL Creatinine 0.83 (0.5-1.4) mg/dL Estim Creat Clear Calc 104.6 Estimated GFR > 60 Random Glucose 121 H (60-115) mg/dL Calcium 9.8 (8.4-10.2) mg/dL Total Bilirubin 0.9 (0.0-1.0) mg/dL AST 29 (5-31) U/L ALT 27 (0-31) U/L Alkaline Phosphatase 60 (39-117) U/L Total Protein 7.2 (6.5-8.0) g/dL Albumin 4.6 (3.5-5.0) g/dL Ethyl Alcohol < 10 mg/dL Discharge Plan Discharge Clinical Impression: Adjustment disorder Patient Disposition: Home, Self-Care Instructions: Anxiety (ED) Additional Instructions: _ DISCHARGE DIAGNOSES: Anxiety HISTORY OF PRESENTATION: ?Anxiety EMERGENCY DEPARTMENT COURSE,TESTS, TREATMENTS: While in the ED today you had basic lab work and were evaluated by our care behavioral health team we have cleared you for discharge. DCF is involved as you are aware DISCHARGE MEDICATIONS: ?[We have made no changes to your regular medication regimen] FOLLOW-UP: ?Call your primary or general physician soon as possible to discuss your symptoms, your ED visit and to discuss follow up plans PCP INSTRUCTIONS ?& RETURN PRECAUTIONS: If any symptoms change first call your primary physician, if it is after-hours your primary doctors office should have a provider supervisor aluminum fabrication you can speak with. If the symptoms are severe or very concerning to you then call 911 or return to the ED. If you are feeling suicidal or need help return at anytime in the emergency department Clemente Cortez MD Emergency Physician [facility] Prescriptions: No Action lisinopril-hydrochlorothiazide 10-12.5 mg tablet 1 tab PO DAILY Qty: 90 1RF amoxicillin-pot clavulanate [Augmentin] 500-125 mg tablet 1 tab PO Q8H 7 Days Qty: 21 0RF magnesium oxide 400 mg magnesium tablet 400 mg PO DAILY 30 Days Qty: 30 3RF cholecalciferol (vitamin D3) 125 mcg (5,000 unit) capsule 125 mcg PO DAILY Fish Oil 100-160-1,000 mg capsule PO solifenacin [Vesicare] 5 mg tablet 5 mg PO DAILY 90 Days Qty: 90 2RF mirabegron [Myrbetriq] 50 mg tablet extended release 24 hr 50 mg PO DAILY 90 Days Qty: 90 2RF duloxetine 30 mg capsule,delayed release(DR/EC) 90 mg PO DAILY 30 Days Qty: 90 2RF hydroxyzine HCl 25 mg tablet 25 mg PO TID PRN (Reason: itching) Qty: 90 1RF mirtazapine 7.5 mg tablet 3.75 mg PO BEDTIME 90 Days Qty: 45 2RF prazosin 2 mg capsule 2 mg PO BEDTIME 30 Days Qty: 30 2RF alprazolam [Xanax] 0.5 mg tablet 0.5 mg PO DAILY PRN (Reason: panic attack(s)) Qty: 30 1RF methylphenidate HCl [Concerta] 27 mg tablet extended release 24hr 27 mg PO DAILY Qty: 30 0RF Rx Instructions: Partial Fill upon patient request. Interventions: [place]-Suicide Risk Severity Scale Last Done: 03/03/25 12:40 ED Discharge Assessment Last Done: 03/03/25 15:08 Discharge Date/Time: 03/03/25 15:08 Print Language: Nepalese
--- NOTE | 2025-03-03 12:40 | PC.NURSE ---
This RN involved with patient d/t DCF needing to get contacted for this patients children. This RN called [facility] [place] at [phone] and was told to call [place] office for a faster response time this RN then called number given by Andressa [phone] and spoke with the intact contact Angela. Nettles was given the information of the two children in concern: Thee Linn (17y/o 07/28/2007 and Meg Linn (5y/o 03/02/2020) Thee attends [employer] (called but was unable to touch base with administration at this time, awaiting call back ) and Meg attends [employer] school in [place] (talked with Admin and given contact of Kassandra at [phone]). Both schools have been contacted at this time to alert the staff that the children will not have a parent to pick the children up. Mother is the pt who is currently here in the hospital as a pt, and the father Hever is under arrest as part of a sting that was done this AM. Mother reporting there are no other contacts or family friends that can help with the children. This RN updated the CareTeam at this time, primary RNs aware of plan. At this time per DCF contact Anca Nettles was going to do the emergency responses to both schools and would take over contact with the schools at this time an then contact her steam fitter supervisor maintenance and going forward will determine the outcome. Pt has been made aware of current update and situation at this time.
[2025-03-03 13:17] LABS: MANUAL DIFF FLAG NO
[2025-03-03 13:20] LABS: Hematocrit 37.8 % (37.0-47.0); Hemoglobin 13.4 g/dl (12.0-16.0); Imm Gran Abs Auto 0.04 X10*3/uL (0.00-0.03); Imm Gran Pct Auto 0.4 % (0.0-0.4); Lymphocytes Absolute Auto 1.2 X10*3/uL (1.2-4.9); Mean Corpuscular HGB Conc 35.4 g/dl (31.0-35.0); Mean Corpuscular Hemoglobin 30.6 pg (27.0-33.0); Mean Corpuscular Volume 86.3 fL (80.0-98.0); NRBC Abs Auto 0.000 X10*3/uL (0.0-0.012); NRBC Pct Auto 0.0 /100WBC (0.0-0.2); Platelet Count 246 X10*3/uL (160-400); Red Blood Count 4.38 X10*6/uL (4.20-5.50); White Blood Count 9.0 X10*3/uL (4.8-10.8)
[2025-03-03 13:36] LABS: Alanine Aminotransferase 27 U/L (0-31); Albumin Level 4.6 g/dL (3.5-5.0); Alkaline Phosphatase 60 U/L (39-117); Anion Gap 11 (12-20); Aspartate Amino Transferase 29 U/L (5-31); Blood Urea Nitrogen 10 mg/dL (9-16); Calcium 9.8 mg/dL (8.4-10.2); Carbon Dioxide 27 mmol/L (22-29); Chloride 106 mmol/L (96-108); Creatinine Clr Calc Pharmacy 104.6; Estimated Glomerular Filt Rate > 60; Potassium 4.4 mmol/L (3.3-5.1); Sodium 140 mmol/L (135-145); Total Protein 7.2 g/dL (6.5-8.0)
--- NOTE | 2025-03-03 13:49 | PC.NURSE ---
Pt arrives very tearful to the POD, she is oriented to the unit by this senior copywriter. She states she is very overwhelmed and not sure what is going on, She denies SI at this time and says she needs to live for her kids.
[2025-03-03 15:08] VITALS: BP 148/100; PULSE 94; RESP 20; TEMP 36.6; O2SAT 99
== END 2025-03-03 15:08 | disposition home or self-care (01) ==
PROVIDERS: Emergency Provider Emergency Medicine
DX: F43.20 Adjustment disorder, unspecified (principal); R45.851 Suicidal ideations; R51.9 Headache, unspecified; F41.9 Anxiety disorder, unspecified; I10 Essential (primary) hypertension
CPT/HCPCS: 36415; 80053; 80307; 85025; 99284; S9485

== ENCOUNTER 2025-03-16 10:10 | Outpatient (AMB) | payer OTHER, SELFPAY ==
[2025-03-16 10:17] VITALS: BP 146/98; PULSE 97; O2SAT 96; BMI 46.0
--- NOTE | 2025-03-16 10:17 | A.OFFVIS_ITS ---
Vital Signs 03/16/25 10:17 Height 5 ft 1 in Weight 243 lb 4 oz BMI 46.0 BP 146/98 H Blood Pressure Location Rt brachial Position Sitting Pulse 97 Pulse Source Pulse Oximeter Pulse Oximetry (%) 96 Oxygen Delivery Method Room Air Intake Visit Reasons: 1 yr f/u - Snoring Intake Note: Patient presents follow up DARON. Compliance in chart(90/90days, >=4hrs-100%, Average Usage-8hr 41min, Pressure-11cm, Med Leaks-0.0, AHI-1.4). Not sure what to do with old supplies. Accompanied by: Self / Same As Patient Allergies latex Adverse Reaction (Mild, Verified 03/16/25 10:21) hives cefuroxime axetil Adverse Reaction (Uncoded 09/21/24 13:55) rash HPI Comments Details: 44 y/o female patient presents for follow up of DARON. Interim Med Hx: Surviving trauma Therapy She is seeing her therapist at [facility] in the day program every week or other week as needed along with her outpatient therapist through [facility]. She sees her psychiatrist 4-6 weeks for medication dose adjustments. DARON Compliance Report reviewed with pt. 11/2024- 02/2025 Total use is 90/90 days and >4 hours is 100%, Avg use is 8 hours and 41min Press [id number] Med leaks 0, AHI is 1.4/hr She washes her mask, rinses her hoses, changes filters and fills reservoir with water as needed. HST c/w moderate daron AHI is 16 and o2 nadirs to 83%, she underwent titration therapy and was started on CPAP [id number]. She is currently using the Airfit N20 nasal pillows and notices it is so tight on her face and presses into the jaws. She would like to try the Airfit F30 nasal mask. Her pressures are fine though will have leaks. She sleeps well with her cpap and feels more energetic in the mornings. She still tosses and turns however this is due to nasal congestion which improves with zyrtec. She notices snoring has resolved. She is having less migraines 1x a week, managed with diet and Ibuprofen OTC, or Sumatriptan PRN. She has tried Guanfacine and Topomax in the past. Denies RLS, leg cramps, acid reflux, spasms, bruxism, clenching, n/v, dizziness, vertigo, gait or balance difficulties. [facility] Medical History Sleep apnea Overactive bladder Nausea and vomiting in adult Acute respiratory disease Major depressive disorder, recurrent, severe with psychotic features Decreased hearing Tinnitus Reduced visual acuity Pyelonephritis (03/22/15) (08/04/19) Obesity (12/12/18) Migraine Menorrhagia Irritable bowel syndrome Insomnia Hiatal hernia Hemorrhoids Gastroesophageal reflux disease Fracture of hand (04/22/09) Female stress incontinence Blood in urine Severe carpal tunnel syndrome of right wrist Medical clearance for psychiatric admission Hypertriglyceridemia Positive Tinel's sign Positive Phalen maneuver Cervicalgia HTN (hypertension) Decreased hearing of both ears Environmental and seasonal allergies Tinnitus of both ears Knee pain Excessive daytime sleepiness Loud snoring Vitamin D deficiency Impaired fasting glucose Mixed dyslipidemia Morbid obesity Hiatal hernia with gastroesophageal reflux Family history of premature CAD Annual visit for general adult medical examination with abnormal findings Surgical History History of carpal tunnel release H/O endoscopy H/O wisdom tooth extraction Family History Father Substance use disorder Mental health disorder Alcoholism Myocardial infarction acute, Onset Age: 55 Depression Maternal Uncle Testicular cancer Social History Household Members: Spouse and Children Household Members Other:: and 2 children Housing: House Do you presently have visiting nurse or other home services: No Alcohol intake: current Alcohol intake frequency: holidays/special occasions only Patient Tobacco Use Status: Never used Tobacco Tobacco use type: Cigarette e-Cigarette/Vaping Use: Never Used Substance Use Type: Marijuana service: No Current occupational status: unemployed and other 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 Sexual orientation: Straight/Heterosexual Gender identity: Female Cognitive needs: No Hearing needs: No Vision needs: Yes Physical Exam Vital Signs: Last Vital Signs Pulse 97 03/16/25 10:17 BP 146/98 H 03/16/25 10:17 Pulse Ox 96 03/16/25 10:17 Oxygen Delivery Method Room Air 03/16/25 10:17 BMI result Body Mass Index 46.0 Const General: cooperative, comfortable and no acute distress Nutritional Appearance: obese Orientation/consciousness: patient oriented x3 Eyes Pupils: Equal, round and reactive pupils present Neuro General: patient oriented x3 Cranial nerves: Yes CN's II-XII intact bilaterally, Yes Facial sensation intact/muscles of mastication intact, Yes Equal, round and reactive pupils present, Yes Normal accommodation reflex present, Yes Normal facial strength present, Yes Midline tongue present, Yes Symmetric palate elevation present, Yes Ability to bilaterally rotate head present and Yes Ability to bilaterally elevate shoulders present Gait exam (Neuro): Normal gait present Motor exam (neuro): 5/5 motor strength present throughout, Pronator motor function not present and Normal motor muscle tone present throughout Psych Appearance: grossly normal Mental Status: mental status grossly normal Affect: normal affect Attitude: cooperative Insight: Good insight present (Psych) Judgement: Good judgement present (Psych) Results Reviewed Results Reviewed: DARON Compliance Report reviewed with pt. 11/2024- 02/2025 Total use is 90/90 days and >4 hours is 100%, Avg use is 8 hours and 41min Press [id number] Med leaks 0, AHI is 1.4/hr She washes her mask, rinses her hoses, changes filters and fills reservoir with water as needed. HST c/w moderate daron AHI is 16 and o2 nadirs to 83%, she underwent titration therapy and was started on CPAP [id number]. Assessment & Plan Assessment & Plan (1) DARON (obstructive sleep apnea): Comment: Moderate degree of sleep apnea. The AHI was 16/hr and oxygen ellis was 83% Code(s): G47.33 - Obstructive sleep apnea (adult) (pediatric) Category: Medical (2) Cervicalgia: Code(s): M54.2 - Cervicalgia Category: Medical (3) Morbid obesity: Code(s): E66.01 - Morbid (severe) obesity due to excess calories Category: Medical (4) Fatigue: Code(s): R53.83 - Other fatigue Category: Medical Qualifiers: Fatigue type: unspecified Qualified Code(s): R53.83 - Other fatigue Plan Continue to use CPAP, nightly and >4 hours as patient experiences good clinical effects. BMI is elevated, Wt reduction advised, daily exercises such as walking and lifestyle diet modifications. Migraines, OTC can be used Ibuprofen, if they don't break use Sumatriptan PRN, not to exceed 200mg in 24 hours, continue with Migraine Cap use as needed for headaches that will not abort with 2 doses of Sumatriptan. F/U in 6 months Patient Instructions: Preventative migraine therapy CGRP antagonists: The G-pants Sumatriptan, Rizatriptan, Ellatriptan at the acute onset of migraines. Triptans 1 tablets with onset of migraine. If migraine does not abort, may repeat one more tablet 2 hours later as needed. Do not exceed 4 tablets in a 24 hour period. Chronic Migraine Prevention: may use daily as prescribed. Amytriptyline, Ibuprofen OTC 400-600mg PO PRN, May put on your migraine cap, and lie down for 15-30min in a dark, quiet room. May use peppermint oil on the temples as needed. Drink at least 50% of body weight in water. DARON - cpap full face mask F30 is being supplied to trial. speak with regional home care, for relocation and establishing care at next duty station. Call the office if you need any additional support. Coding Level of Care Code Est Pt Level 4 (63608) Diagnoses DARON (obstructive sleep apnea) G47.33 Cervicalgia M54.2 Morbid obesity E66.01 Fatigue, unspecified type R53.83 Fatigue type: unspecified
== END 2025-03-16 11:00 | disposition home or self-care (01) ==
LOC: HO.HSMS 10:11
PROVIDERS: PCP Internal Medicine; Visit Provider Physician Assistant Medical
DX: G47.33 Obstructive sleep apnea (adult) (pediatric) (principal); M54.2 Cervicalgia; E66.01 Morbid (severe) obesity due to excess calories; R53.83 Other fatigue
CPT/HCPCS: 99214

== ENCOUNTER → 2025-03-16 10:10 | Outpatient (BNVA) | payer OTHER, SELFPAY | PROVIDERS: PCP Internal Medicine; Visit Provider Physician Assistant Medical | DX: G47.33 Obstructive sleep apnea (adult) (pediatric) (principal); R53.83 Other fatigue; M54.2 Cervicalgia; E66.01 Morbid (severe) obesity due to excess calories; Z68.42 Body mass index [BMI] 45.0-49.9, adult | CPT/HCPCS: 99212 ==

== ENCOUNTER 2025-03-26 12:45 | Outpatient (RCR) | payer OTHER, SELFPAY ==
[2025-03-08 11:57] VITALS: BP 116/80; PULSE 92; TEMP 37.4; BMI 46.1
--- NOTE | 2025-03-08 14:10 | PC.ADMIT ---
Patient is a 44 year old female who was referred to [facility] where she was seen secondary to feeling overwhelmed with stress and made a suicidal statement. Per Integrative Assessment patient's was arrested while he was at work and patient reportedly came home to police in her home who broke down her door following an investigation involving patient's . See Integrative Assessment form more information. Patient reports she had a Nervous breakdown over the incident with her and can't believe this is happening to her. She stated she has know her since she was 11 years old. Patient reports her mother in law, who lives in [place], is staying with her since the incident. Patient reports her is currently in the custody of her father in law and has a pending court date. She stated he is wearing an ankle bracelet. Patient identified her supports stating, Mother in law, couple of wives that I have gotten to know through the [employer], one band booster parent, therapist, Meka Kemp. Patient is alert and oriented x4. She is calm and cooperative. She presented with depressed mood and anxious affect. Regarding SI patient stated, It's there but its in the back of my head . Patient did state, I was thinking how many would it take to either help me fall asleep or make the pain stop (regarding her medications). Denied any active plans or intent to kill herself. I asked patient if her mother in law Jonathan, who is currently staying with her, hold on to her medications as a precaution so she does not do something impulsively. Patient agreed. She called her mother in law Jonathan while in my office and Jonathan agreed to hold on to Alice's medications at this time as a precaution. Alice stated to her mother in law that she is going to get a lock box for her mother in law to lock up her medications after program today. Patient denied having any firearms in the home. Medications updated with patient and patient's pharmacy. She reports taking medications as prescribed.
--- NOTE | 2025-03-08 20:16 | P.HPPSP_ITS ---
HPI Date of Service: 03/08/25 Chief Complaint: depression,anxiety Sources of Information: patient interviewed, chart reviewed and crisis/core team assessment reviewed HPI Narrative: Thsi is the first PHP admission for this 44 yo female with history of anxiety, depression, hypertension, DARON, HLD, migraines and has been in outpatient therapy over the past year since her first IPLOC in 04/2024 for mood lability/medication complications. SHe reportedly had been relatively stable until recent incident where was arrested on child pornography/exploitation charges. DHS came to my house, they broke down our door... my house is trashed, my is gone. I dont know what to think. She reports struggling with caring for her self her children in her household. The overwhelmed, anxiety is high with what the future holds , complaints of executive dysfunction. The house is in disarray since her 's arrest. Feel stuck between a rock and a hard place. Feel so defeated . She has 3 children ages, 21, 17 and 5, and lives at home with her youngest 2, who are also traumatized from this. Seldomly uses edibles/cannabis last time was months ago. About 1 to 2 times a year in moderation or last no history of substance use aside from nicotine around 19 Past Psychiatric History: IPLOC x1 in 04/2024 Denies any PHP, respite, detox admissions SA: denies SIB: denies Aggression or antisocial behaviors: denies Denies legal history outpt tx since age 22. Has been managed this past year in OP setting for worsening depression/SI and SIB thoughts PAST MEDICTIONS: Fluoxetine, mirtazapine, Topamax, Lexapro, Wellbutrin (caused nightmares anger), Zoloft, Prozac, Effexor, amitriptyline, trazodone, propranolol, prazosin lexapro- increased anger wellbutrin- very negative/angry zoloft- woorked first time took - did not work on retrial prozac- ok for a bit and then stopped working effexor- excessive weight gain CURRENT MEDICATIONS: duloxetine 90 mg qd lisinopril HCTZ 12.5 mg qd [facility] Medical History Sleep apnea Overactive bladder Nausea and vomiting in adult Acute respiratory disease Major depressive disorder, recurrent, severe with psychotic features Decreased hearing Tinnitus Reduced visual acuity Pyelonephritis (03/22/15) (08/04/19) Obesity (12/12/18) Migraine Menorrhagia Irritable bowel syndrome Insomnia Hiatal hernia Hemorrhoids Gastroesophageal reflux disease Fracture of hand (04/22/09) Female stress incontinence Blood in urine Severe carpal tunnel syndrome of right wrist Medical clearance for psychiatric admission Hypertriglyceridemia Positive Tinel's sign Positive Phalen maneuver Cervicalgia HTN (hypertension) Decreased hearing of both ears Environmental and seasonal allergies Tinnitus of both ears Knee pain Excessive daytime sleepiness Loud snoring Vitamin D deficiency Impaired fasting glucose Mixed dyslipidemia Morbid obesity Hiatal hernia with gastroesophageal reflux Family history of premature CAD Annual visit for general adult medical examination with abnormal findings Narrative: Seizures: denies Concussions/TBI: denies Ht: 5'1 Wt:244 lbs ALL: cephalosporins, Latex Surgical History History of carpal tunnel release H/O endoscopy H/O wisdom tooth extraction Family History: Alcoholism Social History: and has 3 children age 21, 16, 4. 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 family has moved around a lot due to pt grew up in [place]. lived with both parents; after her father lost his job they all moved in with grandmother; family experienced severe poverty- very traumatic. no running water, no food, no electricity at times. no telephone, no flushing toilets no lights. Father became ETOHIC and massive heart attack at age 55. Pt has 3 siblings. Trauma History: childhood severe poverty Diagnostics Vital Signs (24Hr): Vital Signs - 24 hr 03/08/25 11:57 Temperature 99.3 F Pulse Rate 92 Blood Pressure 116/80 BMI result Body Mass Index 46.1 Meds/Allergies Meds Home Medications ?Medication ?Instructions ?Recorded ?Confirmed ?Type cholecalciferol (vitamin D3) 125 125 mcg PO DAILY 05/2304/07/25 History mcg (5,000 unit) capsule omega 8-fci-zna-fish oil 100 1 cap PO DAILY 06/03/24 1 06/08/24 History mg-160 mg-1,000 mg capsule (Fish Oil) cetirizine 10 mg tablet (Zyrtec) 10 mg PO DAILY PRN al lergy sxs 11/17/25 12/17/25 History levonorgestrel (Mirena) intrauterine 03/16/25 History hydroxyzine HCl 25 mg tablet 25 mg PO BEDTIME PRN anxi ety 04/07/25 04/07/25 History Allergies Allergies Allergy/AdvReac Type Severity Reaction Status Date / Time aripiprazole (From Abiliy) Allergy Intermediate Angioedema Verified 04/26/25 14:05 latex AdvReac Mild hives Verified 04/26/25 14:05 cefuroxime axetil AdvReac rash Uncoded 04/26/25 14:05 Mental Status Exam Mental Status Exam Narrative: Alert, oriented, in no acute distress. Calm, cooperative, engaged. No psychomotor agitation or neurovegetative retardation. Eye contact maintained. Mood depressed, overhwlmed, affect sad, tearful. Speech normal. Thought process linear, coherent. Thought content related to stressors, feeling helpless and demoralized, transient hopelessness, denies SI or HI. No paranoia or delusional content elicited. No evidence of psychosis. Insight and judgment - fair but adequate. Assessment & Plan Assessment & Plan (1) Major depressive disorder, recurrent, moderate: Status: Acute Code(s): F33.1 - Major depressive disorder, recurrent, moderate (2) SAMMY (generalized anxiety disorder): Status: Acute Code(s): F41.1 - Generalized anxiety disorder (3) ADHD (attention deficit hyperactivity disorder), combined type: Status: Acute Code(s): F90.2 - Attention-deficit hyperactivity disorder, combined type Plan Admit to [facility] reviewed on admission: afebrile, BP 116/80;?92 bpm hold alprazolam start clonazepam 0.5 mg TID hold off starting guanfacine ER til midweek consider rx for sleep continue regular medications for now Routine lab work as indicated EKG, routine for baseline QTc for medication considerations as indicated UDS as indicated MassPat reviewed Continue to monitor as per protocol Patient educated on: diagnosis and medication risk/benefits Informed Consent: understands Reason for continued partial hosp. stay Substantial Risk for: med/psych decompensation Certification I certify that partial hospital treatment is medically necessary due to the symptoms and problems resulting from the patient's mental illness and the fa ilure to treat the patient at the partial hospital level of care would likely result in the patient requiring inpatient psychiatric care which could not be prevented at a less intensive level of care. Time Spent With Patient Time: Total time managing care of this patient today __90__ minutes.
--- NOTE | 2025-03-11 13:53 | HO.PHP ---
Alice's case was opened during weekly team treatment meeting
--- NOTE | 2025-03-17 20:27 | P.PNPSP_ITS ---
Subjective Subjective Date of Service: 03/15/25 Reason For Visit: depression,anxiety Interim History: Patient seen for follow-up. No major events over the weekend. Still feeling very overwhelmed overstimulated, appetite suppressed, MIL force fed me. Has been doing well on Abilify 2 mg at night denies any adverse effects is agreeable to continue titrating she also finds clonazepam quite helpful and covers allowed for anxiety throughout the day. She has additional stressors pertaining to her children. Sleep has modestly improved to 6 to 7 hours. Still feeling tired any thoughts of given up on my Medication Compliance: Yes Side effects from medications: No Attending Groups: Yes Review of Systems Acute medical concerns: No Mental Status Exam Mental Status Exam Narrative: Alert, oriented, in no acute distress. Calm, cooperative, engaged. No psychomotor agitation or neurovegetative retardation. Eye contact maintained. Mood depressed, overwhelmed, affect sad, tearful. Speech normal. Thought process linear, coherent. Thought content related to stressors, feeling helpless and demoralized, transient hopelessness, denies SI or HI. No paranoia or delusional content elicited. No evidence of psychosis. Insight and judgment - fair but adequate. Diagnostics Vital Signs (24Hr): BMI result Body Mass Index 46.1 Assessment & Plan Assessment & Plan (1) Major depressive disorder, recurrent, moderate: Status: Acute Code(s): F33.1 - Major depressive disorder, recurrent, moderate (2) SAMMY (generalized anxiety disorder): Status: Acute Code(s): F41.1 - Generalized anxiety disorder (3) ADHD (attention deficit hyperactivity disorder), combined type: Status: Acute Code(s): F90.2 - Attention-deficit hyperactivity disorder, combined type Plan continue PHP titrate Abilify from 3-5 mg qd increase guanfacine ER to 2 mg qd continue clonazepam 0.5 mg TID increase mirtazapine to 7.5 mg qhs continue regular medications for now Routine lab work as indicated EKG, routine for baseline QTc for medication considerations as indicated UDS as indicated MassPat reviewed Continue to monitor Patient educated on: diagnosis and medication risk/benefits Informed Consent: understands Reason for contiued partial hosp. stay Substantial Risk for: inability to function and med/psych decompensation Certification I certify that partial hospital treatment is medically necessary due to the symptoms and problems resulting from the patient's mental illness and the failure to treat the patient at the partial hospital level of care would likely result in the patient requiring inpatient psychiatric care which could not be prevented at a less intensive level of care. Total time managing care of this patient today __30__ minutes. Discharge Plan Discharge Attending provider: Melissa Ozuna Medications: Continued cetirizine [Zyrtec] 10 mg Tablet 10 mg PO DAILY PRN (Reason: allergy sxs) cholecalciferol (vitamin D3) 125 mcg (5,000 unit) capsule 125 mcg PO DAILY Rx Instructions: Patient stated she takes three days a week. Fish Oil 100-160-1,000 mg capsule 1 cap PO DAILY Mirena 21 mcg/24hr (up to 8 yrs) 52 mg intrauterine device intrauterine solifenacin [Vesicare] 5 mg tablet 5 mg PO DAILY 90 Days Qty: 90 2RF mirabegron [Myrbetriq] 50 mg tablet extended release 24 hr 50 mg PO DAILY 90 Days Qty: 90 2RF Changed clonazepam [Klonopin] 0.5 mg tablet 0.5 mg PO DAILY Qty: 30 0RF Rx Instructions: pt aware to hold alprazolam, switching to clonazepam for 2 weeks Discontinued mirtazapine 7.5 mg tablet 7.5 mg PO BEDTIME alprazolam [Xanax] 0.5 mg tablet 0.5 mg PO BID PRN (Reason: panic attack(s)) Qty: 60 1RF No Action guanfacine 1 mg tablet extended release 24 hr 1 mg PO QPM PRN (Reason: anxiety) Qty: 30 0RF Rx Instructions: by 4pm famotidine [Pepcid] 40 mg tablet 40 mg PO DAILY PRN (Reason: heartburn) Qty: 30 0RF diphenhydramine HCl [Benadryl] 25 mg capsule 50 mg PO TID PRN (Reason: allergic reaction) Qty: 20 0RF prednisone 20 mg tablet 40 mg PO DAILY 5 Days Qty: 10 0RF epinephrine [EpiPen 2-Kristian] 0.3 mg/0.3 mL auto-injector 0.3 mg IM Q4H PRN (Reason: anaphylaxis) Qty: 2 0RF hydroxyzine HCl 25 mg tablet 25 mg PO BEDTIME PRN (Reason: anxiety) duloxetine 30 mg capsule,delayed release(DR/EC) 90 mg PO DAILY 30 Days Qty: 90 2RF magnesium oxide 400 mg magnesium tablet 400 mg PO DAILY 30 Days Qty: 30 3RF methylphenidate HCl [Concerta] 27 mg tablet extended release 24hr 27 mg PO DAILY Qty: 30 0RF Rx Instructions: Partial Fill upon patient request. mirtazapine 7.5 mg tablet 7.5 mg PO BEDTIME PRN (Reason: sleep) Qty: 30 0RF prazosin 2 mg capsule 2 mg PO BEDTIME 30 Days Qty: 30 2RF amlodipine 2.5 mg tablet 2.5 mg PO DAILY Qty: 30 0RF Patient Education: ADHD in Adults (DC), Depression (DC), PTSD (Post Traumatic Stress Disorder) (DC), Anxiety (ED) Print Language: Hungarian
--- NOTE | 2025-03-23 20:13 | P.PNPSP_ITS ---
Subjective Subjective Date of Service: 03/23/25 Reason For Visit: depression,anxiety Interim History: Patient seen for follow-up today. Discussed current situation at home and involving legal involvement. Lots of stress and having to manage everything herself but continues to persevere. SOme difficult moments, but has support of family and is working through everything. Started on medication changes. Sleep is getting better, except one night woke with a panic attack. Stressful dr morin more lately. Shared details from childhood, chaotic parents, raised by grandparents. Lived in poverty, no flushing toilets. FInds self and her kids in financial constraints, a lot of anxiety around this. Appetite improving, denies any SI, HI, AH, HI. No alcohol or drug use. Medication Compliance: Yes Side effects from medications: No Attending Groups: Yes Review of Systems Acute medical concerns: No Mental Status Exam Mental Status Exam Narrative: Alert, oriented, in no acute distress. Calm, cooperative, engaged. No psychomotor agitation or neurovegetative retardation. Eye contact maintained. Mood depressed, affect subdued, moments of brightening, not tearful. Speech normal. Thought process linear, coherent. Thought content related to stressors, feeling overwhelmed, helpless, denies hopelessness, denies SI or HI. No paranoia or delusional content elicited. No evidence of psychosis. Insight and judgment - fair but adequate. Diagnostics Vital Signs (24Hr): BMI result Body Mass Index 46.1 Assessment & Plan Assessment & Plan (1) Major depressive disorder, recurrent, moderate: Status: Acute Code(s): F33.1 - Major depressive disorder, recurrent, moderate (2) Acute stress reaction with predominately emotional disturbance: Status: Resolved Code(s): F43.0 - Acute stress reaction (3) SAMMY (generalized anxiety disorder): Status: Acute Code(s): F41.1 - Generalized anxiety disorder (4) ADHD (attention deficit hyperactivity disorder), combined type: Status: Acute Code(s): F90.2 - Attention-deficit hyperactivity disorder, combined type Plan continue PHP increase ABilify to 7 mg/d (split 2 mg in AM and 5 mg HS) continue Concerta 27 mg qam increase guanfacine ER to 2 mg qd continue to taper use of clonazepam from BID to QAM and will increase access to hydroxyzine for sleep 50-100 mg, continue 25 mg BID prn anxiety continue mirtazapine 7.5 mg qhs continue regular medications for now Routine lab work as indicated EKG, routine for baseline QTc for medication considerations as indicated UDS as indicated MassPat reviewed Continue to monitor Patient educated on: diagnosis and medication risk/benefits Informed Consent: understands Reason for contiued partial hosp. stay Substantial Risk for: med/psych decompensation Certification I certify that partial hospital treatment is medically necessary due to the symptoms and problems resulting from the patient's mental illness and the failure to treat the patient at the partial hospital level of care would likely result in the patient requiring inpatient psychiatric care which could not be prevented at a less intensive level of care. Total time managing care of this patient today __30__ minutes. Discharge Plan Discharge Attending provider: Melissa Ozuna Medications: Continued cetirizine [Zyrtec] 10 mg Tablet 10 mg PO DAILY PRN (Reason: allergy sxs) cholecalciferol (vitamin D3) 125 mcg (5,000 unit) capsule 125 mcg PO DAILY Rx Instructions: Patient stated she takes three days a week. Fish Oil 100-160-1,000 mg capsule 1 cap PO DAILY Mirena 21 mcg/24hr (up to 8 yrs) 52 mg intrauterine device intrauterine solifenacin [Vesicare] 5 mg tablet 5 mg PO DAILY 90 Days Qty: 90 2RF mirabegron [Myrbetriq] 50 mg tablet extended release 24 hr 50 mg PO DAILY 90 Days Qty: 90 2RF Discontinued mirtazapine 7.5 mg tablet 7.5 mg PO BEDTIME alprazolam [Xanax] 0.5 mg tablet 0.5 mg PO BID PRN (Reason: panic attack(s)) Qty: 60 1RF No Action guanfacine 1 mg tablet extended release 24 hr 1 mg PO QPM PRN (Reason: anxiety) Qty: 30 0RF Rx Instructions: by 4pm famotidine [Pepcid] 40 mg tablet 40 mg PO DAILY PRN (Reason: heartburn) Qty: 30 0RF epinephrine [EpiPen 2-Kristian] 0.3 mg/0.3 mL auto-injector 0.3 mg IM Q4H PRN (Reason: anaphylaxis) Qty: 2 0RF hydroxyzine HCl 25 mg tablet 25 mg PO BEDTIME PRN (Reason: anxiety) Rexulti 0.25 mg tablet 0.25 mg PO DAILY Qty: 30 2RF duloxetine 30 mg capsule,delayed release(DR/EC) 90 mg PO DAILY 30 Days Qty: 90 2RF magnesium oxide 400 mg magnesium tablet 400 mg PO DAILY 30 Days Qty: 30 3RF methylphenidate HCl [Concerta] 27 mg tablet extended release 24hr 27 mg PO DAILY Qty: 30 0RF Rx Instructions: Partial Fill upon patient request. mirtazapine 7.5 mg tablet 7.5 mg PO BEDTIME PRN (Reason: sleep) Qty: 30 0RF prazosin 2 mg capsule 2 mg PO BEDTIME 30 Days Qty: 30 2RF amlodipine 2.5 mg tablet 2.5 mg PO DAILY Qty: 30 0RF clonazepam [Klonopin] 0.5 mg tablet 1 mg PO DAILY Rx Instructions: pt aware to hold alprazolam, switching to clonazepam for 2 weeks Patient Education: ADHD in Adults (DC), Depression (DC), PTSD (Post Traumatic Stress Disorder) (DC), Anxiety (ED) Print Language: Nicaraguan
--- NOTE | 2025-03-26 15:54 | HO.PHPPROGNO ---
Subjective Subjective Date of Service: 03/26/25 Reason For Visit: depression,anxiety Interim History: Patient seen for follow-up, anticipating discharge at the end of program today. Things are getting sorted out, I'm doing much better . 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 Patient voiced appreciation for the program it was good, very helpful... being together with people who are also suffering is comforting Reports no acute issues or concerns. Medication compliant, medications well-tolerated. Denies any adverse effects.? Mood is stable.? Denies any hopelessness or SI. Denies thoughts of harming self or others at this time. Denies any aggressive ideation or HI. Denies any paranoia or AH or VH. Sleep, appetite, energy stable. Medication Compliance: Yes Side effects from medications: No Attending Groups: Yes Review of Systems Acute medical concerns: No Mental Status Exam Mental Status Exam Narrative: Alert, oriented, in no acute distress. Calm, cooperative. Mood stable, affect appropriate. Speech normal. Thought process linear, coherent, more goal-directed. Thought content related to stressors, future-oriented, denies any helplessness, hopelessness or SI.? No aggressive ideation or HI. No paranoia or delusional content elicited. No evidence of psychosis. Insight and judgment fair-good. Diagnostics Vital Signs (24Hr): BMI result Body Mass Index 46.1 Assessment & Plan Assessment & Plan (1) Major depressive disorder, recurrent, moderate: Status: Acute Code(s): F33.1 - Major depressive disorder, recurrent, moderate (2) Acute stress reaction with predominately emotional disturbance: Status: Resolved Code(s): F43.0 - Acute stress reaction (3) SAMMY (generalized anxiety disorder): Status: Acute Code(s): F41.1 - Generalized anxiety disorder (4) ADHD (attention deficit hyperactivity disorder), combined type: Status: Acute Code(s): F90.2 - Attention-deficit hyperactivity disorder, combined type Plan [facility]charge from [facility] Continue regular medications? Refills sent to pharmacy Will defer further medication management to outpatient provider *Safety plan reviewed *Discharge diagnoses, treatment course, discharge plan have been reviewed with patient (including medication regime, medication management, potential side effects) as well as treatment rationale were also revisited *Discharge paperwork signed and given to patient, copy sent for scanning to chart Patient educated on: diagnosis and medication risk/benefits Informed Consent: understands Reason for contiued partial hosp. stay Substantial Risk for: stable for discharge Certification I certify that partial hospital treatment is medically necessary due to the symptoms and problems resulting from the patient's mental illness and the failure to treat the patient at the partial hospital level of care would likely result in the patient requiring inpatient psychiatric care which could not be prevented at a less intensive level of care. Total time managing care of this patient today _30___ minutes. Discharge Plan Discharge Attending provider: Melissa Ozuna Medications: Continued cetirizine [Zyrtec] 10 mg Tablet 10 mg PO DAILY PRN (Reason: allergy sxs) cholecalciferol (vitamin D3) 125 mcg (5,000 unit) capsule 125 mcg PO DAILY Rx Instructions: Patient stated she takes three days a week. Fish Oil 100-160-1,000 mg capsule 1 cap PO DAILY Mirena 21 mcg/24hr (up to 8 yrs) 52 mg intrauterine device intrauterine solifenacin [Vesicare] 5 mg tablet 5 mg PO DAILY 90 Days Qty: 90 2RF mirabegron [Myrbetriq] 50 mg tablet extended release 24 hr 50 mg PO DAILY 90 Days Qty: 90 2RF Discontinued mirtazapine 7.5 mg tablet 7.5 mg PO BEDTIME alprazolam [Xanax] 0.5 mg tablet 0.5 mg PO BID PRN (Reason: panic attack(s)) Qty: 60 1RF No Action guanfacine 1 mg tablet extended release 24 hr 1 mg PO QPM PRN (Reason: anxiety) Qty: 30 0RF Rx Instructions: by 4pm famotidine [Pepcid] 40 mg tablet 40 mg PO DAILY PRN (Reason: heartburn) Qty: 30 0RF epinephrine [EpiPen 2-Kristian] 0.3 mg/0.3 mL auto-injector 0.3 mg IM Q4H PRN (Reason: anaphylaxis) Qty: 2 0RF hydroxyzine HCl 25 mg tablet 25 mg PO BEDTIME PRN (Reason: anxiety) Rexulti 0.25 mg tablet 0.25 mg PO DAILY Qty: 30 2RF duloxetine 30 mg capsule,delayed release(DR/EC) 90 mg PO DAILY 30 Days Qty: 90 2RF magnesium oxide 400 mg magnesium tablet 400 mg PO DAILY 30 Days Qty: 30 3RF methylphenidate HCl [Concerta] 27 mg tablet extended release 24hr 27 mg PO DAILY Qty: 30 0RF Rx Instructions: Partial Fill upon patient request. mirtazapine 7.5 mg tablet 7.5 mg PO BEDTIME PRN (Reason: sleep) Qty: 30 0RF prazosin 2 mg capsule 2 mg PO BEDTIME 30 Days Qty: 30 2RF amlodipine 2.5 mg tablet 2.5 mg PO DAILY Qty: 30 0RF clonazepam [Klonopin] 0.5 mg tablet 1 mg PO DAILY Rx Instructions: pt aware to hold alprazolam, switching to clonazepam for 2 weeks Patient Education: ADHD in Adults (DC), Depression (DC), PTSD (Post Traumatic Stress Disorder) (DC), Anxiety (ED) Print Language: Khmer
== END 2025-03-26 23:59 | disposition home or self-care (01) ==
LOC: HO.PHPA 12:45
PROVIDERS: Visit Provider Psychiatry & Neurology Psychiatry
DX: F33.1 Major depressive disorder, recurrent, moderate (principal); F41.1 Generalized anxiety disorder; F90.2 Attention-deficit hyperactivity disorder, combined type; F43.0 Acute stress reaction; Z63.0 Problems in relationship with spouse or partner
CPT/HCPCS: 90791; 90853

== ENCOUNTER → 2025-03-26 12:45 | Outpatient (BNV) | payer OTHER, SELFPAY | PROVIDERS: Visit Provider Psychiatry & Neurology Psychiatry | DX: F33.1 Major depressive disorder, recurrent, moderate (principal); F41.1 Generalized anxiety disorder; F90.2 Attention-deficit hyperactivity disorder, combined type | CPT/HCPCS: 90792; 99214 ==

== ENCOUNTER 2025-03-30 10:07 | Outpatient (AMB) | payer OTHER, SELFPAY ==
--- NOTE | 2025-03-30 10:13 | A.OFFPSYCH_ITS ---
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 Required: No Allergies latex Adverse Reaction (Mild, Verified 03/16/25 10:21) hives cefuroxime axetil Adverse Reaction (Uncoded 09/21/24 13:55) rash Medication List - Last Reconciled 03/30/25 by Lynn Kemp, RIMMA aripiprazole 5 mg PO BEDTIME aripiprazole 2 mg PO BEDTIME cetirizine (Zyrtec) 10 mg PO DAILY PRN cholecalciferol (vitamin D3) 125 mcg PO DAILY clonazepam (Klonopin) 0.5 mg PO DAILY duloxetine 90 mg (3 x 30 mg) PO DAILY 30 days guanfacine ER 1 mg PO QAM guanfacine ER 1 mg PO QPM PRN hydroxyzine HCl 25 mg PO TID PRN levonorgestrel (Mirena) intrauterine lisinopril-hydrochlorothiazide 10-12.5 mg 1 tab PO DAILY magnesium oxide 400 mg PO DAILY 30 days methylphenidate HCl ER (Concerta) 27 mg PO DAILY mirtazapine 7.5 mg PO BEDTIME PRN Myrbetriq ER (mirabegron) 50 mg PO DAILY 90 days NS omega 8-tyi-slk-fish oil 100-160-1,000 mg (Fish Oil) 1 cap PO DAILY prazosin 2 mg PO BEDTIME 30 days solifenacin (Vesicare) 5 mg PO DAILY 90 days HPI- Psychiatric Chief Complaint: f/u consultation HPI Narrative: pt here for follow up re: anxiety, depression, trauma, and acute stress. She finished PHP program last Saturday. She reports it was very helpful. Pt has good support at home from mother in law. Pt med compliant; reviewed med changes made at [facility]. Pt report the addition of tenex and abilify very helpful. She is sleepiign well; she is often sad and anxious but coping well. She denies SI or HI Past Psychiatric History: outpt tx since age 22. No IPLOC PAST MEDICTIONS: lexapro- increased anger wellbutrin- very negative/angry zoloft- woorked first time took - did not work on retrial prozac- ok for a bit and then stopped working effexor- excessive weight gain Subjective Subjective Medication Compliance: Yes Side effects from medications: No Review of Systems Medical Review of Systems: unchanged Mental Status Exam Mental Status Exam Patient Appearance: Well Grooomed Patient Orientation: Person, Place, Time and Situation Level of Consciousness: Awake and Alert Patient Behavior: Appropriate, Cooperative, Anxious, Fatigued and Good Eye Contact Mood Description: Depressed, Anxious and Sad Affect Description: Depressed, Anxious and Sad Patient Cognition Impaired: No Ability to Follow Directions: Good Speech Pattern: Clear, Appropriate and Coherent Memory Description: Intact Hallucinations: None Delusions: Not Present Thought Process: Intact Thought Content: positive for Intact and positive for Loose Associations Judgement: Fair Assessment and Plan Assessment & Plan (1) Major depressive disorder, recurrent, moderate: Status: Acute Code(s): F33.1 - Major depressive disorder, recurrent, moderate (2) SAMMY (generalized anxiety disorder): Status: Acute Code(s): F41.1 - Generalized anxiety disorder (3) ADHD (attention deficit hyperactivity disorder), combined type: Status: Acute Code(s): F90.2 - Attention-deficit hyperactivity disorder, combined type (4) Fatigue: Status: Acute Qualifiers: Fatigue type: unspecified Qualified Code(s): R53.83 - Other fatigue Code(s): R53.83 - Other fatigue Plan continue remeron to 1/2 tab at bedtime duloxetine to 30mg in am and 60mg at bedtime hydroxyzine prn sleep continue abilify 7mg daily with 2 mg in am and 5 mg at bedtime continue tenex in am continue concerta and prazosin continue clonazepam Medications: Changed From aripiprazole 2 mg PO BEDTIME 30 tabs 0RF as directed To aripiprazole 2 mg PO DAILY@0730 30 tabs 2RF Refilled aripiprazole 5 mg PO BEDTIME 30 tabs 1RF guanfacine ER by 4pm 1 mg PO QPM PRN 30 tabs 0RF anxiety methylphenidate HCl ER (Concerta) Partial Fill upon patient request. 27 mg PO DAILY 30 tabs 0RF duloxetine 90 mg (3 x 30 mg) PO DAILY 90 caps 2RF 30 days guanfacine ER 1 mg PO QAM 30 tabs 0RF hydroxyzine HCl 25 mg PO TID PRN 90 tabs 1RF itching magnesium oxide 400 mg PO DAILY 30 tabs 3RF 30 days mirtazapine 7.5 mg PO BEDTIME PRN 30 tabs 0RF sleep prazosin 2 mg PO BEDTIME 30 caps 2RF 30 days Counseling and coordination of Care Pt. Self Management counseling: Med illness tx adherence, Mod caffeine/ETOH intake, Nutrition education and improvement, Sleep hygiene, Behavior activation and Problem solving Medication management counseling: Effectiveness, Side effects, Dosing range, Duration, Drug interaction and Adherence Diagnosis and Prognosis Counseling: Accuracy of diagnosis, Prognosis over time, Impact of diagnosis on life functions, Impact of family relationship, Problematic behaviors secondary to diagnosis and Adequacy of current interventions Details: I spent 45 minutes reviewing the record, seeing the patient and documenting in the medical record. Counseling provided to the patient/caregiver as outlined below. Addressed patient/caregiver concerns regarding current medication regime including effective adherence. Addressed patient/caregiver concerns regarding diagnosis and prognosis including accuracy of diagnosis, prognosis over time, impact of diagnosis. Addressed patient/caregiver concerns regarding impact of recent stressors. [facility] Medical History Sleep apnea Overactive bladder Nausea and vomiting in adult Acute respiratory disease Major depressive disorder, recurrent, severe with psychotic features Decreased hearing Tinnitus Reduced visual acuity Pyelonephritis (03/22/15) (08/04/19) Obesity (12/12/18) Migraine Menorrhagia Irritable bowel syndrome Insomnia Hiatal hernia Hemorrhoids Gastroesophageal reflux disease Fracture of hand (04/22/09) Female stress incontinence Blood in urine Severe carpal tunnel syndrome of right wrist Medical clearance for psychiatric admission Hypertriglyceridemia Positive Tinel's sign Positive Phalen maneuver Cervicalgia HTN (hypertension) Decreased hearing of both ears Environmental and seasonal allergies Tinnitus of both ears Knee pain Excessive daytime sleepiness Loud snoring Vitamin D deficiency Impaired fasting glucose Mixed dyslipidemia Morbid obesity Hiatal hernia with gastroesophageal reflux Family history of premature CAD Annual visit for general adult medical examination with abnormal findings Surgical History History of carpal tunnel release H/O endoscopy H/O wisdom tooth extraction Family History Father Substance use disorder Mental health disorder Alcoholism Myocardial infarction acute, Onset Age: 55 Depression Maternal Uncle Testicular cancer Social History Household Members: Spouse and Children Household Members Other:: and 2 children Housing: House Do you presently have visiting nurse or other home services: No Alcohol intake: current Alcohol intake frequency: holidays/special occasions only Patient Tobacco Use Status: Never used Tobacco Tobacco use type: Cigarette e-Cigarette/Vaping Use: Never Used Substance Use Type: Marijuana service: No Current occupational status: unemployed and other 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 family has moved around a lot due to pt grew up in [facility]. lived with both parents; after her father lost his job they all moved in with grandmother; family experienced severe poverty- very traumatic. no running water, no food, no electricity at times. no telephone, no flushing toilets no lights. Father became ETOHIC and massive heart attack at age 55. Pt has 3 siblings. Substance History: none Trauma History: childhood severe poverty Coding Level of Care Code Est Pt Level 5 (91537) Diagnoses Major depressive disorder, recurrent, moderate F33.1 SAMMY (generalized anxiety disorder) F41.1 ADHD (attention deficit hyperactivity disorder), combined type F90.2 Fatigue, unspecified type R53.83 Fatigue type: unspecified
== END 2025-03-30 11:55 | disposition home or self-care (01) ==
LOC: HO.HOP 10:07
PROVIDERS: PCP Internal Medicine; Visit Provider Clinical Nurse Specialist Psychiatric/Mental Health
DX: F33.1 Major depressive disorder, recurrent, moderate (principal); F41.1 Generalized anxiety disorder; F90.2 Attention-deficit hyperactivity disorder, combined type
CPT/HCPCS: 99214

== ENCOUNTER → 2025-03-30 10:07 | Outpatient (BNVA) | payer OTHER, SELFPAY | PROVIDERS: PCP Internal Medicine; Visit Provider Clinical Nurse Specialist Psychiatric/Mental Health | DX: F33.1 Major depressive disorder, recurrent, moderate (principal); F41.1 Generalized anxiety disorder; F90.2 Attention-deficit hyperactivity disorder, combined type | CPT/HCPCS: 99212 ==

== ENCOUNTER 2025-04-07 10:14 | Outpatient (AMB) | payer OTHER, SELFPAY ==
[2025-04-07 10:19] VITALS: BP 100/64; PULSE 98; RESP 16; TEMP 36.7; O2SAT 92; BMI 45.3
--- NOTE | 2025-04-07 10:19 | A.OFFPC_ITS ---
Vital Signs 04/07/25 10:19 Height 5 ft 1 in Weight 240 lb BMI 45.3 BP 100/64 Blood Pressure Location Lt brachial Position Sitting Respiration 16 Pulse 98 Pulse Source Pulse Oximeter Temp 98.1 F Temp Source Oral Pulse Oximetry (%) 92 Oxygen Delivery Method Room Air Intake Visit Reasons: PE Intake Note: Pt is here today for her PE: last mammogram 04/13/24, papsmear 05/29/22 Allergies latex Adverse Reaction (Mild, Verified 04/18/25 00:55) hives cefuroxime axetil Adverse Reaction (Uncoded 04/18/25 00:55) rash Medication List - Last Reconciled 04/07/25 by Arelis Serrano MD aripiprazole 5 mg PO BEDTIME aripiprazole 2 mg PO DAILY@0730 cetirizine (Zyrtec) 10 mg PO DAILY PRN cholecalciferol (vitamin D3) 125 mcg PO DAILY clonazepam (Klonopin) 0.5 mg PO DAILY duloxetine 90 mg (3 x 30 mg) PO DAILY 30 days guanfacine ER 1 mg PO QPM PRN hydroxyzine HCl 25 mg PO BEDTIME PRN levonorgestrel (Mirena) intrauterine lisinopril-hydrochlorothiazide 10-12.5 mg 1 tab PO DAILY magnesium oxide 400 mg PO DAILY 30 days methylphenidate HCl ER (Concerta) 27 mg PO DAILY mirtazapine 7.5 mg PO BEDTIME PRN Myrbetriq ER (mirabegron) 50 mg PO DAILY 90 days NS omega 3-ijp-cqy-fish oil 100-160-1,000 mg (Fish Oil) 1 cap PO DAILY prazosin 2 mg PO BEDTIME 30 days solifenacin (Vesicare) 5 mg PO DAILY 90 days Tobacco use date assessed: 05/15/24 Dental Screening Dental Screen Date: 05/15/24 HPI PE HPI Details 44-year-old lady here today for her phys ical exam. She is up-to-date with her screening for breast cancer, has an appointment already scheduled later this month for her next mammogram appointment. Last cervical cancer screening and pelvic exam was done in 2022 with benign findings, already has an appointment scheduled for next May [address] 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 Mirena IUD was placed in July of this year. Despite the IUD, she has experienced a return of abnormal uterine bleeding, characterized by light spotting for 7-8 days every two weeks She is experiencing significant psychosocial stress due to legal issues involving her , who has been accused of possessing child pornography and is currently on probation with no contact allowed with their 5-year-old daughter. This situation reportedly caused the patient to have a nervous breakdown. Her mental health history includes a diagnosis of ADHD, and she is followed by Lynn [facility] every 4 to 6 weeks. Her current psychiatric medications include duloxetine 90 mg, mirtazapine at night for sleep, prazosin, guanfacine as needed at night, clonazepam during the day, and hydroxyzine at night. She reports significant dry mouth as a side effect of her medications Her gastrointestinal history is notable for a hiatal hernia with reflux, which is still bothersome and has recently been associated with some difficulty swallowing. She also reports constipation with a sensation of blockage, which she suspects may be a hemorrhoid; she notes that trying MiraLAX caused stomach cramps. She has hypertension, with a recent blood pressure reading of 100/64 mmHg, currently taking lisinopril-HCTZ 10-12.5 mg tablet daily She has obstructive sleep apnea, compliant with using her CPAP machine and finds it helpful. She has a history of hearing problems but cannot afford hearing aids as they are not covered by her [employer] insurance. She also reports that her previous neck pain is better, though her neck still cracks with movement, and has new onset shoulder pain when reaching behind her back. She is up to date on her flu and COVID vaccines. She has made dietary changes, including eating avocado toast or overnight oats for breakfast, and takes fish oil. Labs done last month howed no anemia, with normal electrolytes and thyroid function, but a slightly elevated non-fasting blood sugar. [facility] Medical History (Updated 04/18/25 @ 00:01 by Background Daemon) Sleep apnea Overactive bladder Nausea and vomiting in adult Acute respiratory disease Major depressive disorder, recurrent, severe with psychotic features Decreased hearing Tinnitus Reduced visual acuity Pyelonephritis (03/22/15) (08/04/19) Obesity (12/12/18) Migraine Menorrhagia Irritable bowel syndrome Insomnia Hiatal hernia Hemorrhoids Gastroesophageal reflux disease Fracture of hand (04/22/09) Female stress incontinence Blood in urine Severe carpal tunnel syndrome of right wrist Medical clearance for psychiatric admission Hypertriglyceridemia Positive Tinel's sign Positive Phalen maneuver Cervicalgia HTN (hypertension) Decreased hearing of both ears Environmental and seasonal allergies Tinnitus of both ears Knee pain Excessive daytime sleepiness Loud snoring Vitamin D deficiency Impaired fasting glucose Mixed dyslipidemia Morbid obesity Hiatal hernia with gastroesophageal reflux Family history of premature CAD Annual visit for general adult medical examination with abnormal findings Surgical History History of carpal tunnel release H/O endoscopy H/O wisdom tooth extraction Family History Father Substance use disorder Mental health disorder Alcoholism Myocardial infarction acute, Onset Age: 56 Depression Maternal Uncle Testicular cancer Social History Household Members: Spouse and Children Household Members Other:: and 2 children Housing: House Do you presently have visiting nurse or other home services: No Alcohol intake: current Alcohol intake frequency: holidays/special occasions only Patient Tobacco Use Status: Never used Tobacco Tobacco use type: Cigarette e-Cigarette/Vaping Use: Never Used Substance Use Type: Marijuana Advance Directives: No Advance Directives Information Provided: Yes Do you have a plan to hurt others: No Plan service: No Current occupational status: unemployed and other 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 1. Little interest or pleasure in doing things: more than half the days 2. Feeling down, depressed, or hopeless: nearly every day 3. Trouble falling or staying asleep, or sleeping too much: several days 4. Feeling tired or having little energy: several days 5. Poor appetite or overeating: nearly every day 6. Feeling bad about yourself - or that you are a failure or have let yourself or your family down: several days 7. Trouble concentrating on things, such as reading the newspaper or watching television: more than half the days 8. Moving or speaking so slowly that other people could have noticed. Or the opposite - being so fidgety or restless that you have been moving around a lot more than usual: several days 9. Thoughts that you would be better off or of hurting yourself in some way: not at all Total score: 14 Depression Screening Interpretation: Positive (moni Kemp RN Ph) Depression Screening Follow-up: Existing condition, In treatment and Community Mental Health Worker F/U Depression Screening Done: Yes Source: Developed by Drs. Charles Gerardo, Negrita Kunz, Horacio Interiano and colleagues, with an educational ventura from [employer]. Thrive Questionnaire Date Thrive assessed: 01/06/24 I am a: Patient What is your living situation today?: I have a steady place to live Within the past 12 months, did the food you bought not last and you didn't have the money to get more?: Sometimes True Within the past 12 months, did you worry whether your food would run out before you got money to buy more?: Sometimes True Do you have trouble paying for medicines?: No Do you have trouble getting transportation to medical appointments?: No Do you have trouble paying your heating and electricity bill?: Yes Do you have trouble taking care of your child, family member or friend?: No Do you have trouble with day-to-day activities such as bathing, preparing meals, shopping, managing finances, etc.?: Yes Are you currently unemployed and looking for a job?: Yes Are you interested in more education?: Yes Please select the resources that you would like help with: Daily support, Job search/training and Education Currently or been in a relationship where the following occur: I choose not to answer THRIVE Score: 3 AUDIT C Alcohol Use Questionnaire (AUDIT-C) 1. How often do you have a drink containing alcohol?: Monthly or less Total Score: 1 SAMMY-7 AMB Questionnaire SAMMY-7 Date SAMMY - 7 assessed: 05/15/24 Feeling nervous, anxious, or on edge: 3 = Nearly every day Not being able to stop or control worryin = Nearly every day Worrying too much about different things: 3 = Nearly every day Trouble relaxin = Nearly every day Being so restless that it is hard to sit still: 1 = Several days Becoming easily annoyed or irritable: 3 = Nearly every day Feeling afraid as if something awful might happen: 3 = Nearly every day Total SAMMY-7 score (0-4 normal; 5-9 mild; 10-14 moderate; 15-21 severe): 19 Source: Developed by Drs. Charles Gerardo, Negrita Kunz, Horacio Interiano and colleagues, with an educational ventura from [employer]. Review of Systems Const Denies headache(s) and Denies weakness Eyes Details: has bifocals , sees [employer] Denies change in vision ENT Denies dizziness and Denies headache(s) Card Denies chest pain, Denies lightheadedness, Denies palpitations and Denies dyspnea Resp Denies chest congestion, Denies cough, Denies dyspnea and Denies wheezing GI Denies abdominal pain and Denies heartburn Denies urinary frequency, Denies dysuria and Denies urinary urgency Musc Reports no additional complaints Skin/Breast Denies breast pain, Denies breast mass, Denies lesions and Denies rash Neuro Denies dizziness, Denies headache(s), Denies focal weakness and Denies weakness Psych Reports no additional complaints Endo Denies polydipsia, Denies polyuria and Denies palpitations Ricardo/Lymph Reports no additional complaints Aller/Immun Denies wheezing Physical exam (Primary Care) Vital Signs: Last Vital Signs Temp 98.1 F 04/07/25 10:19 Pulse 98 04/07/25 10:19 Resp 16 04/07/25 10:19 BP 100/64 04/07/25 10:19 Pulse Ox 92 04/07/25 10:19 Oxygen Delivery Method Room Air 04/07/25 10:19 BMI result Body Mass Index 45.3 Tobacco/Smoking Status: Tobacco use Status Tobacco use date assessed 05/15/24 04/07/25 10:23 Patient Tobacco Use Status Never used Tobacco 04/07/25 10:23 Tobacco use type Cigarette 04/07/25 10:23 e-Cigarette/Vaping Use Never Used 04/07/25 10:23 PHQ-9: PHQ-9 Score PHQ-9: Total score 14 04/07/25 10:59 Depression Screening Interpretation: Positive (moni Kemp RN Ph) Depression Screening Follow-up: Existing condition, In treatment and Community Mental Health Worker F/U Thrive Assessment: Date of Thrive Assessment Date Thrive assessed 01/06/24 04/07/25 10:23 Currently or been in a relationship where the following occur: I choose not to answer Const Other: Alert oriented x3, morbidly obese, no acute cardiorespiratory distress noted [facility] Ears: external ears normal General nose exam: Normal external nose present Face and sinus: Yes face symmetric Mouth: moist mucous membranes Eyes General: appearance normal, both eyes and all related structures Neck Other: Supple, no lymphadenopathy, thyroid gland nonpalpable Chest Breast/axilla palpation: normal palpation of the breasts Resp Auscultation: clear to auscultation bilaterally Cardio Other: S1-S2 present regular rate and rhythm GI Inspection: Yes other (External examination reveals a non-tender and non-swollen skin tag consiste) Palpation (GI): Soft to palpation, nontender, no guarding and no masses Auscultation: normal bowel sounds General: Yes no CVA tenderness Back/Spine/Pelvis Back: no CVA tenderness Thoracic/Lumbar Spine: straight leg raise negative bilaterally and paraspinal muscle tenderness bilaterally in the lower lumbar Skin General skin exam: no rashes or lesions noted Neuro General: gait normal, tone normal, moves all extremities, Normal light touch and pain sensation, no focal motor deficits and CN's II-XI intact bilaterally Extrem General: Yes full ROM, Yes no joint enlargement, Yes no clubbing, cyanosis or edema, Yes no calf tenderness and Yes normal gait Psych Appearance: grossly normal and well kempt Affect: normal affect Coding Level of Care Code Est Pt Prev Care 40-64y(89554) Diagnoses Annual visit for general adult medical examination with abnormal findings Z00.01 Impaired fasting glucose R73.01 DARON (obstructive sleep apnea) G47.33 Mixed stress and urge urinary incontinence N39.46 Major depressive disorder, recurrent, moderate F33.1 SAMMY (generalized anxiety disorder) F41.1 Hypertriglyceridemia E78.1 ADHD (attention deficit hyperactivity disorder), combined type F90.2 Assessment & Plan Assessment & Plan (1) Annual visit for general adult medical examination with abnormal findings: Code(s): Z00.01 - Encounter for general adult medical examination with abnormal findings Category: Medical Plan: She is up to date on her flu and COVID-19 immunizations. Plan: Patient has a mammogram scheduled for this month. A Pap smear is scheduled for next year, and she is advised she will need a screening colonoscopy at age 46. A fasting lipid panel and fasting glucose will be ordered. She will make an appointment to follow up for her next annual physical next year (2) Impaired fasting glucose: Code(s): R73.01 - Impaired fasting glucose Category: Medical Plan: Your previous fasting blood sugars were elevated above 100 mg/dL. Impaired glucose metabolism increases the risk for developing diabetes mellitus type 2, as well as heart attack and stroke later on. Lifestyle changes that promotes weight loss, healthy eating habits, and regular exercise are important, and can prevent the progression to diabetes (3) DARON (obstructive sleep apnea): Comment: Moderate degree of sleep apnea. The AHI was 16/hr and oxygen ellis was 83% Code(s): G47.33 - Obstructive sleep apnea (adult) (pediatric) Category: Medical Plan: Followed by Neurology, currently using CPAP (4) Mixed stress and urge urinary incontinence: Code(s): N39.46 - Mixed incontinence Category: Medical Plan: Currently on solifenacin 5 mg daily (5) Major depressive disorder, recurrent, moderate: Code(s): F33.1 - Major depressive disorder, recurrent, moderate Category: Medical Plan: Currently followed by psychiatry (6) SAMMY (generalized anxiety disorder): Code(s): F41.1 - Generalized anxiety disorder Category: Medical Plan: Currently followed by psychiatry (7) Hypertriglyceridemia: Code(s): E78.1 - Pure hyperglyceridemia Category: Medical Plan: Fasting lipid panel ordered Continue taking Galva 3 fatty acid supplements 1 capsule daily may increase it to twice a day , in addition to adherence to low- cholesterol diet and regular exercise, at least 30 minutes 3 to 4 times a week. Advised patient to make healthy food choices, eat more fruits, vegetables, whole grains, wild caught fish and low-fat dairy. Limit amount of meat and fried or fatty food products, as well as processed foods and fast foods. (8) ADHD (attention deficit hyperactivity disorder), combined type: Code(s): F90.2 - Attention-deficit hyperactivity disorder, combined type Category: Medical Plan: Currently followed by Psychiatry , on Concerta 27 mg daily Orders: Orders Lipid Panel 04/07/25 Arelis Serrano MD R73.01 - Impaired fasting glucose, Z00.01 - Encounter for general adult medical examination with abnormal findings, E78.1 - Pure hyperglyceridemia, F90.2 - Attention-deficit hyperactivity disorder, combined type, F41.1 - Generalized anxiety disorder, F33.1 - Major depressive disorder, recurrent, moderate Glucose Fasting 04/07/25 Arelis Serrano MD R73.01 - Impaired fasting glucose, Z00.01 - Encounter for general adult medical examination with abnormal findings, E78.1 - Pure hyperglyceridemia, F90.2 - Attention-deficit hyperactivity disorder, combined type, F41.1 - Generalized anxiety disorder, F33.1 - Major depressive disorder, recurrent, moderate Hemoglobin A1c 04/07/25 Arelis Serrano MD R73.01 - Impaired fasting glucose, Z00.01 - Encounter for general adult medical examination with abnormal findings, E78.1 - Pure hyperglyceridemia, F90.2 - Attention-deficit hyperactivity disorder, combined type, F41.1 - Generalized anxiety disorder, F33.1 - Major depressive disorder, recurrent, moderate Medications: Changed From hydroxyzine HCl 25 mg PO TID PRN 90 tabs 1RF itching To hydroxyzine HCl 25 mg PO BEDTIME PRN Lynn Kemp, HEAD FILTER TANK TENDER HELPER
== END 2025-04-07 11:02 | disposition home or self-care (01) ==
LOC: HO.HMCC 10:15
PROVIDERS: PCP Internal Medicine; Visit Provider Internal Medicine
DX: Z00.01 Encounter for general adult medical examination with abnormal findings (principal); R73.01 Impaired fasting glucose; G47.33 Obstructive sleep apnea (adult) (pediatric); N39.46 Mixed incontinence; F33.1 Major depressive disorder, recurrent, moderate; F41.1 Generalized anxiety disorder; E78.1 Pure hyperglyceridemia; F90.2 Attention-deficit hyperactivity disorder, combined type

== ENCOUNTER 2025-04-17 10:52 | Emergency (ER) | payer OTHER, SELFPAY ==
[2025-04-17 10:57] VITALS: BP 133/87; PULSE 100; RESP 18; TEMP 36.6; O2SAT 97; BMI 45.6
--- NOTE | 2025-04-17 10:58 | ED_ITS ---
HPI - General Adult General Stated complaint: allergic reaction Related Data Home Medications ?Medication ?Instructions ?Recorded ?Confirmed cholecalciferol (vitamin D3) 125 125 mcg PO DAILY 05/2304/07/25 mcg (5,000 unit) capsule omega 6-xha-tfq-fish oil 100 1 cap PO DAILY 06/03/24 1 06/08/24 mg-160 mg-1,000 mg capsule (Fish Oil) cetirizine 10 mg tablet (Zyrtec) 10 mg PO DAILY PRN al lergy sxs 03/08/25 04/07/25 levonorgestrel (Mirena) intrauterine 03/16/25 hydroxyzine HCl 25 mg tablet 25 mg PO BEDTIME PRN anxi ety 04/07/25 04/07/25 Previous Rx's ?Medication ?Instructions ?Recorded Myrbetriq 50 mg tablet,extended 50 mg PO DAILY 90 days #90 tabs 09/03/24 release (mirabegron) solifenacin 5 mg tablet (Vesicare) 5 mg PO DAILY 90 da ys #90 tabs 09/03/24 lisinopril 10 1 tab PO DAILY #90 tabs 12/21 11/13 mg-hydrochlorothiazide 12.5 mg tablet clonazepam 0.5 mg tablet (Klonopin) 0.5 mg PO DAILY #3 0 tabs 03/26/25 aripiprazole 2 mg tablet 2 mg PO DAILY@0730 #30 tabs 03/30/25 aripiprazole 5 mg tablet 5 mg PO BEDTIME #30 tabs 01/14 duloxetine 30 mg capsule,delayed 90 mg (3 x 30 mg) PO DAILY 30 days 03/30/25 release #90 caps guanfacine 1 mg tablet,extended 1 mg PO QPM PRN anxiet y #30 tabs 03/30/25 release 24 hr magnesium oxide 400 mg PO DAILY 30 days #30 tabs 03/30/25 methylphenidate HCl 27 mg 27 mg PO DAILY #30 tabs 01/14 tablet,extended release 24 hr (Concerta) mirtazapine 7.5 mg tablet 7.5 mg PO BEDTIME PRN sleep #30 03/30/25 tabs prazosin 2 mg capsule 2 mg PO BEDTIME 30 days #30 caps 03/30/25 Allergies Allergy/AdvReac Type Severity Reaction Status Date / Time latex AdvReac Mild hives Verified 04/07/25 10:33 cefuroxime axetil AdvReac rash Uncoded 04/07/25 10:33 [facility] Past Medical History Medical History (Updated 04/07/25 @ 10:50 by Arelis Serrano MD) Sleep apnea Overactive bladder Nausea and vomiting in adult Acute respiratory disease Major depressive disorder, recurrent, severe with psychotic features Decreased hearing Tinnitus Reduced visual acuity Pyelonephritis (03/22/15) (08/04/19) Obesity (12/12/18) Migraine Menorrhagia Irritable bowel syndrome Insomnia Hiatal hernia Hemorrhoids Gastroesophageal reflux disease Fracture of hand (04/22/09) Female stress incontinence Blood in urine Severe carpal tunnel syndrome of right wrist Medical clearance for psychiatric admission Hypertriglyceridemia Positive Tinel's sign Positive Phalen maneuver Cervicalgia HTN (hypertension) Decreased hearing of both ears Environmental and seasonal allergies Tinnitus of both ears Knee pain Excessive daytime sleepiness Loud snoring Vitamin D deficiency Impaired fasting glucose Mixed dyslipidemia Morbid obesity Hiatal hernia with gastroesophageal reflux Family history of premature CAD Annual visit for general adult medical examination with abnormal findings Surgical History History of carpal tunnel release H/O endoscopy H/O wisdom tooth extraction Family History Family History Father Substance use disorder Mental health disorder Alcoholism Myocardial infarction acute, Onset Age: 55 Depression Maternal Uncle Testicular cancer Social History Social History Household Members: Spouse and Children Household Members Other:: and 2 children Housing: House Do you presently have visiting nurse or other home services: No Alcohol intake: current Alcohol intake frequency: holidays/special occasions only Patient Tobacco Use Status: Never used Tobacco Tobacco use type: Cigarette e-Cigarette/Vaping Use: Never Used Substance Use Type: Marijuana service: No Current occupational status: unemployed and other 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 Detailed physical exam and review of systems are deferred to the energy derivatives trader. student driving instructor made aware. Discharge Plan Discharge Prescriptions: No Action lisinopril-hydrochlorothiazide 10-12.5 mg tablet 1 tab PO DAILY Qty: 90 1RF cetirizine [Zyrtec] 10 mg Tablet 10 mg PO DAILY PRN (Reason: allergy sxs) clonazepam [Klonopin] 0.5 mg tablet 0.5 mg PO DAILY Qty: 30 0RF Rx Instructions: pt aware to hold alprazolam, switching to clonazepam for 2 weeks hydroxyzine HCl 25 mg tablet 25 mg PO BEDTIME PRN (Reason: anxiety) cholecalciferol (vitamin D3) 125 mcg (5,000 unit) capsule 125 mcg PO DAILY Rx Instructions: Patient stated she takes three days a week. Fish Oil 100-160-1,000 mg capsule 1 cap PO DAILY Mirena 21 mcg/24hr (up to 8 yrs) 52 mg intrauterine device intrauterine solifenacin [Vesicare] 5 mg tablet 5 mg PO DAILY 90 Days Qty: 90 2RF mirabegron [Myrbetriq] 50 mg tablet extended release 24 hr 50 mg PO DAILY 90 Days Qty: 90 2RF aripiprazole 5 mg tablet 5 mg PO BEDTIME Qty: 30 1RF aripiprazole 2 mg tablet 2 mg PO DAILY@0730 Qty: 30 2RF duloxetine 30 mg capsule,delayed release(DR/EC) 90 mg PO DAILY 30 Days Qty: 90 2RF guanfacine 1 mg tablet extended release 24 hr 1 mg PO QPM PRN (Reason: anxiety) Qty: 30 0RF Rx Instructions: by 4pm magnesium oxide 400 mg magnesium tablet 400 mg PO DAILY 30 Days Qty: 30 3RF methylphenidate HCl [Concerta] 27 mg tablet extended release 24hr 27 mg PO DAILY Qty: 30 0RF Rx Instructions: Partial Fill upon patient request. mirtazapine 7.5 mg tablet 7.5 mg PO BEDTIME PRN (Reason: sleep) Qty: 30 0RF prazosin 2 mg capsule 2 mg PO BEDTIME 30 Days Qty: 30 2RF Print Language: Dominican
[2025-04-17] MEDS: diazePAM 10 MG/2 ML CARTRIDGE 2.5 MG IVPUSH (11:23)
--- NOTE | 2025-04-17 11:24 | ED_ITS ---
HPI - General Adult General Chief complaint: Allergic Reaction Stated complaint: allergic reaction Time Seen by Provider: 04/17/25 11:15 Source: patient Mode of arrival: ambulatory Limitations: no limitations History of Present Illness ED Provider: VIOLET Sapp HPI narrative: Chief Complaint: ?My tongue and throat feel swollen and I?m having trouble speaking.? History of Present Illness: 44-year-old female presents to the ED with progressive tongue and throat swelling, difficulty speaking, and a choking sensation. Symptoms began several days ago and have worsened over time. The patient reports onset of symptoms x few days worsening. She describes intermittent episodes of throat tightness and mild lower lip fullness, but denies lip swelling, facial swelling, or rash. She denies fever, chills, nausea, vomiting, diarrhea, chest pain, palpitations, shortness of breath, cough, wheezing, abdominal pain, headache, dizziness, syncope, or visual changes. She has a history of delayed allergic reactions to multiple medications (latex, fluoxetine, cephalexin/cefixime, possible Abilify). She is currently taking a blood pressure medication (patient-reported lisinopril) and Abilify. No recent changes in other medications. No prior history of angioedema. No recent infections or trauma. No history of airway compromise. No prior intubations. No family history of hereditary angioedema. No recent travel or sick contacts. No exposure to new foods or environmental allergens. No history of autoimmune disease. No history of immunotherapy; chemotherapy ongoing for metastatic lung cancer. Related Data Home Medications ?Medication ?Instructions ?Recorded ?Confirmed cholecalciferol (vitamin D3) 125 125 mcg PO DAILY 05/2304/07/25 mcg (5,000 unit) capsule omega 6-jzi-zij-fish oil 100 1 cap PO DAILY 06/03/24 1 06/08/24 mg-160 mg-1,000 mg capsule (Fish Oil) cetirizine 10 mg tablet (Zyrtec) 10 mg PO DAILY PRN al lergy sxs 03/08/25 04/07/25 levonorgestrel (Mirena) intrauterine 03/16/25 hydroxyzine HCl 25 mg tablet 25 mg PO BEDTIME PRN anxi ety 04/07/25 04/07/25 Previous Rx's ?Medication ?Instructions ?Recorded Myrbetriq 50 mg tablet,extended 50 mg PO DAILY 90 days #90 tabs 09/03/24 release (mirabegron) solifenacin 5 mg tablet (Vesicare) 5 mg PO DAILY 90 da ys #90 tabs 09/03/24 lisinopril 10 1 tab PO DAILY #90 tabs 12/21 11/13 mg-hydrochlorothiazide 12.5 mg tablet clonazepam 0.5 mg tablet (Klonopin) 0.5 mg PO DAILY #3 0 tabs 03/26/25 aripiprazole 2 mg tablet 2 mg PO DAILY@0730 #30 tabs 03/30/25 aripiprazole 5 mg tablet 5 mg PO BEDTIME #30 tabs 01/14 duloxetine 30 mg capsule,delayed 90 mg (3 x 30 mg) PO DAILY 30 days 03/30/25 release #90 caps guanfacine 1 mg tablet,extended 1 mg PO QPM PRN anxiet y #30 tabs 03/30/25 release 24 hr magnesium oxide 400 mg PO DAILY 30 days #30 tabs 03/30/25 methylphenidate HCl 27 mg 27 mg PO DAILY #30 tabs 01/14 tablet,extended release 24 hr (Concerta) mirtazapine 7.5 mg tablet 7.5 mg PO BEDTIME PRN sleep #30 03/30/25 tabs prazosin 2 mg capsule 2 mg PO BEDTIME 30 days #30 caps 03/30/25 diphenhydramine HCl 25 mg capsule 50 mg (2 x 25 mg) PO TID PRN 04/17/25 (Benadryl) allergic reaction #20 caps epinephrine 0.3 mg/0.3 mL 0.3 mg (0.3 mL) IM Q4H PRN 1 06/18/24 injection, auto-injector (EpiPen anaphylaxis #2 ea 2-Kristian) famotidine 40 mg tablet (Pepcid) 40 mg PO DAILY #14 ta bs 04/17/25 prednisone 20 mg tablet 40 mg (2 x 20 mg) PO DAILY 5 days 04/17/25 #10 tabs Allergies Allergy/AdvReac Type Severity Reaction Status Date / Time latex AdvReac Mild hives Verified 04/17/25 11:00 cefuroxime axetil AdvReac rash Uncoded 04/07/25 10:33 Review of Systems 2 Review of Systems: Review of Systems: * Constitutional: Denies fever, chills, malaise, weight loss. * HEENT: Positive for tongue and throat swelling, difficulty speaking, choking sensation, mild lower lip fullness. Denies facial swelling, eye pain, vision changes, nasal congestion, sore throat, ear pain, hearing loss. * Respiratory: Denies shortness of breath, cough, wheezing, stridor. * Cardiovascular: Denies chest pain, palpitations, syncope, orthopnea, edema. * Gastrointestinal: Denies nausea, vomiting, diarrhea, abdominal pain, dysphagia. * Genitourinary: Denies dysuria, hematuria, frequency, urgency. * Musculoskeletal: Denies joint pain, muscle aches, weakness. * Neurological: Denies headache, dizziness, confusion, focal deficits, seizures. * Integumentary: Denies rash, hives, pruritus, bruising. * Psychiatric: Denies anxiety, depression, mood changes. * Endocrine: Denies polyuria, polydipsia, heat/cold intolerance. * Hematologic/Lymphatic: Denies bleeding, easy bruising, lymphadenopathy. * Allergic/Immunologic: History of multiple medication allergies and delayed reactions; denies recent exposure to new allergens. Yes all other systems are reviewed and are negative PMFSH Past Medical History Attestation statement: The following information was validated with the patient. Source: old records reviewed and nursing notes reviewed Medical History (Updated 04/17/25 @ 11:30 by VIOLET Prieto) Sleep apnea Overactive bladder Nausea and vomiting in adult Acute respiratory disease Major depressive disorder, recurrent, severe with psychotic features Decreased hearing Tinnitus Reduced visual acuity Pyelonephritis (03/22/15) (08/04/19) Obesity (12/12/18) Migraine Menorrhagia Irritable bowel syndrome Insomnia Hiatal hernia Hemorrhoids Gastroesophageal reflux disease Fracture of hand (04/22/09) Female stress incontinence Blood in urine Severe carpal tunnel syndrome of right wrist Medical clearance for psychiatric admission Hypertriglyceridemia Positive Tinel's sign Positive Phalen maneuver Cervicalgia HTN (hypertension) Decreased hearing of both ears Environmental and seasonal allergies Tinnitus of both ears Knee pain Excessive daytime sleepiness Loud snoring Vitamin D deficiency Impaired fasting glucose Mixed dyslipidemia Morbid obesity Hiatal hernia with gastroesophageal reflux Family history of premature CAD Annual visit for general adult medical examination with abnormal findings Surgical History History of carpal tunnel release H/O endoscopy H/O wisdom tooth extraction Family History Family History Father Substance use disorder Mental health disorder Alcoholism Myocardial infarction acute, Onset Age: 55 Depression Maternal Uncle Testicular cancer Social History Social History Household Members: Spouse and Children Household Members Other:: and 2 children Housing: House Do you presently have visiting nurse or other home services: No Alcohol intake: current Alcohol intake frequency: holidays/special occasions only Patient Tobacco Use Status: Never used Tobacco Tobacco use type: Cigarette e-Cigarette/Vaping Use: Never Used Substance Use Type: Marijuana Advance Directives: No Advance Directives Information Provided: Yes Do you have a plan to hurt others: No Plan service: No Current occupational status: unemployed and other 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 Sexual orientation: Straight/Heterosexual Gender identity: Female Cognitive needs: No Hearing needs: No Vision needs: Yes Physical Exam ED Vital Signs: Vital Signs - 24 hr 04/17/25 10:57 04/17/25 11:25 04/17/25 11:39 Temperature 97.8 F Pulse Rate 100 78 79 Respiratory Rate 18 14 18 Blood Pressure 133/87 139/90 H 139/90 H Pulse Oximetry 97 100 96 Oxygen Delivery Method Room Air Nasal Cannula Room Air Oxygen Flow Rate 2 BMI result Body Mass Index 45.6 Course Course Course Narrative: Rapid medical examination performed in triage by Chichi Nagy PA-C: Patient is a 44 year old female presenting to the emergency department with tongue swelling. Detailed physical exam and review of systems are deferred to the program clinician. 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 Reevaluation(s) Reevaluation #1: Patient also appeared very anxious. I gave her diazepam and it helped alot Time: 11:34 Reevaluation #2: On re-evaluation patient is feeling much better there is no longer notable swelling. Patient's CBC with nonspecific leukocytosis this is likely in the setting of steroids. Chemistry unremarkable. Will do p.o. trial if patient is able to tolerate p.o. she will be discharged home. Time: 14:31 Reevaluation #3: Patient tolerating p.o.. Will be discharged with medications. I educated her on proper use. Educated patient on diagnosis and treatment plan, answered all question, patient verbalizes understanding. At this time patient will be discharged home, advised to return with new or worsening symptoms. Educated on worrisome signs and symptoms and when to return. At this time I feel comfortable discharge home. Time: 14:59 Medications Administered Discontinued Medications Generic Name Dose Route Start Last Admin Trade Name Dorothy PRN Reason Stop Dose Admin Diazepam 2.5 mg 04/17/25 11:21 04/17/25 11:23 Diazepam 10 Mg/2 Ml Cartridge IVPUSH 04/17/25 11:22 2.5 mg STAT STA Administration Diphenhydramine HCl 50 mg 04/17/25 11:05 04/17/25 11:22 Diphenhydramine Hcl 50 Mg/Ml Vial IVPUSH 04/17/25 11:06 50 mg ONCE ONE Administration Famotidine 20 mg 04/17/25 11:22 04/17/25 11:39 Famotidine/Pf 20 Mg/2 Ml Vial IVPUSH 04/17/25 11:23 20 mg ONCE ONE Administration Methylprednisolone Sodium Succinate 60 mg 04/17/25 11:04 04/17/25 11:22 Methylprednisolone Sod Succ 125 Mg/2 Ml Vial IVPUSH 04/17/25 11:05 60 mg ONCE ONE Administration Medical Decision Making Medical Decision Making MDM Narrative: 44-year-old female with acute angioedema, likely secondary to medication exposure (Abilify, possible contribution from antihypertensive agent). Patient is immunocompromised due to ongoing chemotherapy for metastatic lung cancer, increasing risk for severe reactions and airway compromise. Multiple medication allergies and history of delayed allergic reactions further complicate management. Problem #1: Angioedema / Allergic Reaction Assessment: Progressive tongue and throat swelling after starting Abilify; possible contribution from antihypertensive medication (patient-reported LISINOPRIL). Mild tongue and uvular edema observed; airway currently stable. Immunocompromised status and multiple medication allergies increase risk for severe reaction and airway compromise. Differential Diagnosis: Medication-induced angioedema (Abilify, antihypertensive), idiopathic angioedema, hereditary angioedema, infectious pharyngitis, oral mucosal trauma, autoimmune disease. Risk Assessment: High risk for airway compromise due to progressive swelling and immunocompromised status. Risk of recurrence or progression of angioedema. Risk of adverse drug reactions due to multiple allergies. Medical Decision Making: Given the patient's immunocompromised status, history of multiple medication allergies, and progressive airway symptoms, close monitoring in the ED is warranted. Airway assessment performed; no current compromise, but risk remains elevated. Decided to change steroid from Decadron (dexamethasone) 10 mg IV to methylprednisolone 60 mg IV push as this medication was redily available and at the bedside Plan: * Administered IV Benadryl 50 mg. * Administered IV methylprednisolone 60 mg IV push (changed from Decadron 10 mg IV per provider preference ). * Administered IV Famotidine (Pepcid) * Observation in ED for minimum 4 hours with hourly reassessment for return or progression of symptoms. * Continuous airway monitoring; immediate intervention available if airway compromise develops. * Patient instructed to notify staff immediately if swelling, breathing, or throat tightness worsens. * Education provided regarding signs of airway compromise and need for prompt reporting. * Allergy list updated; Abilify added as possible allergen. Differential Diagnosis Differential Diagnoses: The differential diagnosis associated with the presentation includes Differential Diagnosis: * Medication-induced angioedema: Most likely etiology given recent initiation of Abilify and ongoing antihypertensive therapy. Both antipsychotics and certain antihypertensives are known triggers for angioedema. * Idiopathic angioedema: No clear trigger identified; angioedema can occur without identifiable cause. * Hereditary angioedema: Less likely given absence of family history and typical age of onset, but considered due to presentation. * Infectious pharyngitis: Viral or bacterial infection could cause throat swelling, though absence of fever, sore throat, and exudate makes this less likely. * Oral mucosal trauma: No reported trauma, but considered in differential for tongue/throat swelling. * Autoimmune disease: Autoimmune conditions (e.g., lupus, Sj?gren's) can cause mucosal swelling, though no history or other findings suggestive. * Other causes: Consider allergic reaction to foods, environmental allergens, or other medications, though patient den Admission/Observation Consideration of admission/observation: Escalation of care including admission/observation considered (possible ) Lab Data MDM Lab Attestation statement: I reviewed the patient's lab results. Reviewed per course 04/17/25 13:31 04/17/25 13:31 Labs: Lab Results 04/17/25 Range/Units 13:31 WBC 12.6 H (4.8-10.8) X10*3/uL RBC 4.49 (4.20-5.50) X10*6/uL Hgb 13.6 (12.0-16.0) g/dl Hct 38.6 (37.0-47.0) % MCV 86.0 (80.0-98.0) fL MCH 30.3 (27.0-33.0) pg MCHC 35.2 H (31.0-35.0) g/dl RDW 12.7 (11.0-16.0) % Plt Count 258 (160-400) X10*3/uL MPV 8.3 L (9.4-12.3) fL Immature Gran % (Auto) 0.5 H (0.0-0.4) % Neut % (Auto) 84.6 H (45-73) % Lymph % (Auto) 10.4 L (20-40) % Marin % (Auto) 1.3 L (2-11) % Eos % (Auto) 2.7 (0-4) % Baso % (Auto) 0.5 (0-2) % Lymph # (Auto) 1.3 (1.2-4.9) X10*3/uL Marin # (Auto) 0.2 (0.1-1.2) X10*3/uL Eos # (Auto) 0.3 (0.0-0.4) X10*3/uL Baso # (Auto) 0.1 (0.0-0.2) X10*3/uL Abs Immat Gran (auto) 0.06 H (0.00-0.03) X10*3/uL Absolute Neuts (auto) 10.6 H (2.0-8.3) x10*3/uL Absolute Nucleated RBC 0.000 (0.0-0.012) X10*3/uL Nucleated RBC % (auto) 0.0 (0.0-0.2) /100WBC Sodium 137 (135-145) mmol/L Potassium 4.3 (3.3-5.1) mmol/L Chloride 107 (96-108) mmol/L Carbon Dioxide 23 (22-29) mmol/L Anion Gap 11 L (12-20) BUN 10 (9-16) mg/dL Creatinine 0.91 (0.5-1.4) mg/dL Estim Creat Clear Calc 91.1 Estimated GFR > 60 Random Glucose 111 (60-115) mg/dL Calcium 9.4 (8.4-10.2) mg/dL Total Bilirubin 0.8 (0.0-1.0) mg/dL AST 22 (5-31) U/L ALT 24 (0-31) U/L Alkaline Phosphatase 66 (39-117) U/L Total Protein 7.1 (6.5-8.0) g/dL Albumin 4.5 (3.5-5.0) g/dL Independent Historian Clinical information obtained from an independent historian. History obtained from or confirmed by: Parent External Record Review External record reviewed: Inpatient record, Office record, Outpatient record, Prior outpatient labs, Prior outpatient radiology, Primary care record and Outside ED record Prescription Management I considered prescription management with: Other (will be sent home w/ prednsione, benadryl, pecid and epipen) Chronic Conditions Patient?s care impacted by: Other (see hpi ) Critical Care Time Critical Care Time Critical Care Time: Yes Total Critical Care Time: 45 Attestation: Time Spent: Total time spent in direct patient care, evaluation, and management: 45 minutes. Complexity of medical decision making: High, due to immunocompromised status, multiple medication allergies, risk of airway compromise, and need for frequent reassessment and intervention. Discharge Plan Discharge Clinical Impression: Angioedema, Allergic reaction Patient Disposition: Home, Self-Care Instructions: Angioedema (ED), Allergy Testing (ED) Additional Instructions: Take your medications as prescribed. If you were prescribed antibiotics today, it is important that you take your medication to their entirety, do not skip any doses, do not finish them early. Follow-up with your primary care provider this week. Return to the emergency department with new or worsening symptoms. Such as fevers, chills, chest pain, shortness of breath, nausea, vomiting, dizziness, headache, vision changes, lethargy In case of emergency call 911 How to use an EpiPen: ? Place the orange tip against the middle of the outer thigh. ? Swing and push the auto-injector firmly into the thigh until it ?clicks? ? Hold firmly in place for three seconds?count slowly, ?1, 2, 3? An EpiPen has been sent to your pharmacy this should only be used in severe emergency such as inability to breathe trouble speaking, shortness breath or any signs of anaphylaxis as discussed. If he use an EpiPen it is crucial you come in to an emergency department to be evaluated as you can have a rebound effect. Please follow-up with an allergy doctor. Prescriptions: New diphenhydramine HCl [Benadryl] 25 mg capsule 50 mg PO TID PRN (Reason: allergic reaction) Qty: 20 0RF famotidine [Pepcid] 40 mg tablet 40 mg PO DAILY Qty: 14 0RF prednisone 20 mg tablet 40 mg PO DAILY 5 Days Qty: 10 0RF epinephrine [EpiPen 2-Kristian] 0.3 mg/0.3 mL auto-injector 0.3 mg IM Q4H PRN (Reason: anaphylaxis) Qty: 2 0RF No Action lisinopril-hydrochlorothiazide 10-12.5 mg tablet 1 tab PO DAILY Qty: 90 1RF cetirizine [Zyrtec] 10 mg Tablet 10 mg PO DAILY PRN (Reason: allergy sxs) clonazepam [Klonopin] 0.5 mg tablet 0.5 mg PO DAILY Qty: 30 0RF Rx Instructions: pt aware to hold alprazolam, switching to clonazepam for 2 weeks hydroxyzine HCl 25 mg tablet 25 mg PO BEDTIME PRN (Reason: anxiety) cholecalciferol (vitamin D3) 125 mcg (5,000 unit) capsule 125 mcg PO DAILY Rx Instructions: Patient stated she takes three days a week. Fish Oil 100-160-1,000 mg capsule 1 cap PO DAILY Mirena 21 mcg/24hr (up to 8 yrs) 52 mg intrauterine device intrauterine solifenacin [Vesicare] 5 mg tablet 5 mg PO DAILY 90 Days Qty: 90 2RF mirabegron [Myrbetriq] 50 mg tablet extended release 24 hr 50 mg PO DAILY 90 Days Qty: 90 2RF aripiprazole 5 mg tablet 5 mg PO BEDTIME Qty: 30 1RF aripiprazole 2 mg tablet 2 mg PO DAILY@0730 Qty: 30 2RF duloxetine 30 mg capsule,delayed release(DR/EC) 90 mg PO DAILY 30 Days Qty: 90 2RF guanfacine 1 mg tablet extended release 24 hr 1 mg PO QPM PRN (Reason: anxiety) Qty: 30 0RF Rx Instructions: by 4pm magnesium oxide 400 mg magnesium tablet 400 mg PO DAILY 30 Days Qty: 30 3RF methylphenidate HCl [Concerta] 27 mg tablet extended release 24hr 27 mg PO DAILY Qty: 30 0RF Rx Instructions: Partial Fill upon patient request. mirtazapine 7.5 mg tablet 7.5 mg PO BEDTIME PRN (Reason: sleep) Qty: 30 0RF prazosin 2 mg capsule 2 mg PO BEDTIME 30 Days Qty: 30 2RF Referrals: Arelis Serrano MD [Primary Care Provider, Internal Medicine] Print Language: [place]
[2025-04-17 11:25] VITALS: BP 139/90; PULSE 78; RESP 14; O2SAT 100
--- OUTSIDE RECORDS SUMMARY | 2025-04-17 11:31 | XMS_ITS | Data Portability ---
Author Organization [facility]perri [facility], [facility] Imaging Reads - OP Address [address] [place] [address] Care Team Providers Care Lifeline Representatives Name Role Phone NINA PENALOZA Primary Care Provider Unavailabl e Assessment Encounter [...] 6-8 weeks. This visit was conducted via teleTiny Prints website Leosphere using both audio and video during the 2019 COVID-19 pandemic. Patient consented to non face to face service. Patient location: car Provider location: [facility] Start time: 1417 End time: 142 Participants [...] This visit was conducted via telehealth website Le[employer] using both audio and video during the 2020. Patient consented to non face to face service. Patient location: home Provider location: [facility] Start time: 1424 End [...] This visit was conducted via telehealth website Leosphere using both audio and video during the 2019. Patient consented to non face to face service. Patient location: home Provider location: [facility] Start time: 1352 End [...] mg capsule,del ayed release 2021 022 [facility], [address], [place], [address], 15:13:01 duloxetine 60 mg capsule,del ayed release 2021 022 [facility], [address], [place], [address], 15:12:56 hydroxyzine HCl 50 mg tablet 2021 022 [facility], [address], [place], [address], 15:12:57 hydroxyzine HCl 50 mg tablet 2020 021 [facility], [address], [place], [address], 15:27:21 duloxetine 30 mg capsule,del ayed release 2020 021 [facility], [address], [place], [address], 15:27:17 duloxetine 60 mg capsule,del ayed release 2020 021 [facility], [address], [place], [address], 15:27:17 Patient TargetsNo targets recorded. Patient InstructionsNo instructions recorded. Reason for Referral None Reported. Problems Name Problem SNOMED Code Status Onset Date Resolution Date Notes Provider Name and Address Organization Details Recorded Time Multiple environm ental allergie s Active scotty sepulveda [facility] 6 12:23:04 Irritabl e bowel syndrome 73890333 Active celiac disease Ab testing Neg 11/03; improved w/ Gluten free diet scotty sepulveda [facility] 6 12:23:04 Gastroes ophageal reflux disease 861674404 Active scotty sepulveda [facility] 6 12:23:04 Mixed anxiety and depressi ve disorder 345852218 Active hx of post depressi on and took lexapro but felt poor response , wellbutr in was very neg side effects (bad vivid dreams of her hurting her family); zoloft was very good response but had to stop when breast feeding bad w/d (didn't wean) scotty sepulveda, [facility] 6 12:23:03 Migraine 37022328 Active [facility] 12:23:03 Hiatal hernia 12897612 Active [facility] 6 12:23:04 Hemorrho ids 04315242 Completed 12/11/2018 tx'd w/ anusol-H C Timbo Mckeon DO [address], [place], [address] , [facility] 9 17:20:55 Female urinary stress incontin ence 16774634 Active [facility] 7 18:34:40 Insomnia 518486255 Active [facility] 6 12:23:03 Tinnitus 40878300 Active [facility] 6 12:23:04 Decrease d hearing 154826274 Completed 12/11/2018 Timbo Mckeon DO [address], [place], [address] , [place] [facility] 9 17:19:28 Reduced visual acuity 44031374 Active [facility] 6 12:23:04 Sensorin eural hearing loss of bilatera l ears 740877868 Active Asha Bradford [address], [place], [address] , [place] [facility] 6 13:11:25 Menorrha obi 994711484 Active Eugenio VANEGAS, Margy Valdivia [address], [place], [address] , [place] [facility] 7 22:56:04 Blood in urine 26668430 Completed 12/11/2018 LyndseyTimbo salcedo DO [address], [place], [address] , [place] [facility] 9 17:19:34 Fracture of hand 22101006 Completed 200912/11/2018 Left LyndseyTimbo salcedo DO [address], [place], [address] , [place] [facility] 9 17:20:04 Pyelonep hritis 11083792 Completed 201412/11/2018 tx'd w/ Levaquin LyndseyTimbo salcedo DO [address], [place], [address] , [place] [facility] 9 17:19:51 Obesity 520186378 Active 2018 LyndseyTimbo salcedo DO [address], [place], [address] , [place] - [facility] 9 01:18:28 Pregnanc y 62930834 Completed 201903/16/2020 Aliyah sepulveda, [place] - [facility] 0 12:25:25 Gestatio nal diabetes mellitus class A2 12941827 Active 2019 Aliyah Julian null, [place] - [facility] 0 12:25:22 Gestatio nal diabetes mellitus class A2 90394390 Completed 2019 Aliyah Julian null, [place] - [facility] 0 12:25:22 Depressi ve disorder 89895896 Active 2020 Yaya Casanova DO [address], [place], [address] , [place] [facility] 1 15:54:10 Notes:hx plantar fasciitis; hx [...] and Address Organization Details Recorded Time 02/25/20 20 Non-Stress Test completed Malka VANEGAS, Cali Carter [address], [place], [address], [facility] 02/25/2020 13:33:54 02/18/20 20 Non-Stress Test completed Cali Ace MD [address], [place], [address], [facility] 02/18/2020 15:49:47 02/11/20 20 Non-Stress Test completed Malka VANEGAS, Cali Carter [address], [place], [address], [facility] 02/11/2020 15:03:18 01/12/20 20 Non-Stress Test completed Malka VANEGAS, Cali Carter [address], [place], [address], [place] [facility] 01/12/2020 18:21:04 12/19/19 19 Date of Last Pap Smear completed Timbo Mckeon DO [address], [place], [address], [facility] 12/24/2018 14:45:47 06/30/19 17 Ortho Corticosteroid Injection completed Vy Feliciano [facility] 06/29/2016 12:26:26 06/29/19 17 Cystoscopy (female) completed Chuck VANEGAS, [address], [place], [address], [facility] 06/28/2016 12:41:47 06/14/19 17 Bladder Scan completed Chuck VANEGAS, [address], [place], [address], [facility] 06/14/2016 13:22:58 04/05/20 16 Tympanometry completed Asha Bradford [address], [place], [address], [facility] 04/05/2016 13:11:04 04/05/20 16 Audiogram.old completed Asha Bradford [address], [place], [address], [facility] 04/05/2016 13:11:04 11/21/19 15 Other completed Georgi Moctezuma MD [address], [place], [address], [facility] 01/13/2016 00:18:30 10/21/19 15 Other completed Georgi Moctezuma MD [address], [place], [address], [facility] 01/13/2016 00:18:30 04/22/19 00 Carlton Teeth Removed completed Georgi Moctezuma MD [address], [place], [address], [facility] 01/12/2016 22:50:32 Oral surgery procedure completed Dena Argueta [facility] 04/06/2016 12:36:17 Imaging Results None recorded. Procedure Notes None recorded. Medical Equipment None Reported. Allergies Allergen ID Allergen Name Allergen Category Reaction Reaction Severity Criticality Documentation Date Start Date Code Code System Note Provider Name and Address Organization Details Recorded Time 238814 latex environme nt,medica tion hives moderate Not available 01/12/2016 22193 91 RxNorm Georgi Moctezuma MD [address], [place], [address], [facility] 22:23:54 020570 acetamino phen / hydrocodo ne medicatio n other moderate Not available 04/05/2016 63420 2 RxNorm facia l numbn ess scotty sepulveda, [facility] 6 12:23:03 312430 Wellbutri n medicatio n Not available Not available Not available 06/18/2016 32956 RxNorm vivid dream s/fri ghten ing ; used w/ post partu m alivia Moctezuma MD, Georgi Costa [address], [facility] [place], [address], [facility] 7 11:10:40 355740 adhesive tape environme nt,medica tion Not available Not available Not available 03/16/2020 Aliyah sepulveda, [facility] 0 12:21:24 Medications Name Sig Start [...] e 137 mcg (0.1 %) nasal spray [place] 1 spray every day by intranas al [...] Not Available Not Available Not Available FreeStyle Hulbert Lite kit 03/16 completed Not Available Not [...] Smoking Status Never Smoker 12/11/18 Kathy Guallpa [facility], [facility] 12/11/2018 16:59:59 Do You Have An Advance Directive? No I Gave Her The Form For The Living Will And Health Power Of Chicken Cutter, She Does Want To Be Resuscitated. She [...] COVID-19 While That Case Was Ill? No [email or web address] Information not available 07/30/2019 In The 14 Days Before Symptom Onset, Have You Had Close Contact With A Person Who Is Under Investigation For COVID-19 While That Person Was Ill? No [email or web address] Information not available 07/30/2019 Have You Been To An Area Known To Be High Risk For COVID-19? No [email or web address] Information not available 07/30/2019 What Type Of [...] not available 04/06/2016 Do You Have Any Voodoo Beliefs That May Impact Your Health Care Decisions? No Does Not Follow Any Sabianism Information not available 12/11/2018 Did You Hurt Yourself When You Fell In The Last Year? No 12/11/18 Information not available 04/06/2016 Education: 12 Information not available 12/11/2018 Marital Status Informatio n not available 01/12/2016 What Was The Date Of Your Most Recent Tobacco Screening? 09/12/2020 [email or web address] Information not available 09/15/2020 Are You Sexually [...] is your level of alcohol consumption? None [email or web address] Information not available 10/27/2019 Do you or have you ever used smokeless tobacco? 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 [employer] [email or web address] Information not available 09/15/2020 Do you or [...] Details LastModified Time Father Myocardial infarction 55 [email or web address] Not available 04/25 18:44:02 Father Hypertensive disorder [email or web address] Not available 2016 18:44:02 Father Hyperlipidem ia [email or web address] Not available 2016 18:44:02 Paternal Aunt Malignant neoplasm of cervix uteri Not available 07/2016 18:44:02 Paternal Aunt Dementia [email or web address] Not a vailable 04/25/2016 18:44:02 Mother Pyelonephrit [...] Not available 12/11/2018 17:35:27 Son Allergic rhinitis Liliam m [email or web address] Not available 12/11/2018 17:36:32 Notes:idiopathic [...] PF 1 completed Maile sepulveda [facility] 03/15/2021 12:10:26 COVID-19, mRNA, LNP-S, PF, 30 mcg/0.3 mL dose 1 completed Savana sepulveda [facility] 08/30/2020 10:45:30 COVID-19, mRNA, LNP-S, PF, 30 mcg/0.3 mL dose 1 completed Savana sepulveda [facility] 08/30/2020 10:45:45 COVID-19, mRNA, LNP-S, PF, 30 mcg/0.3 mL dose 1 completed Maile sepulveda [facility] 03/15/2021 11:48:03 Influenza, split virus, trivalent, PF 8 cancelled patient objection Not Available [facility] 05/09/2019 02:33:30 Influenza, MDCK, quadrivalent , PF 8 completed Not Available [facility] 05/09/2019 03:23:32 Influenza, MDCK, quadrivalent , PF 9 completed Not Available [facility] 05/09/2019 03:01:50 Influenza, split virus, quadrivalent , PF 0 completed Savana sepulveda [facility] 01/05/2020 16:31:36 Tdap 3 completed Not Available [facility] 03/07/2020 09:20:47 Past Encounters Encounter ID Performer Location Encounter Start Date Encounter Closed Date Diagnosis/Indication Diagnosis SNOMED-CT Code Diagnosis ICD10 Code Diagnosis IMO Codes Diagnosis Note [id number] Rhianna VANEGAS, Georgi Costa [facility] [address] [facility],[place] [address] 01/12/2016 10:23:10 01/13/2016 12:09:34 Adult health examination 407287987 Z00.00 Hematology screening test 776185015 Z13.0 Hyperlipid emia screening 021894956 Z13.220 Endocrine/ metabolic screening 222612726 Z13.228 Mixed anxi ety and depressive disorder 074664005 F41.8 Tinnitus 13864417 H93.13 Decreased hearing 014482 001 H91.93 Reduced visual acuity 13 862734 H54.7 [facility] care 06214 5005 Z30.40 [id number] Lv lucas MD, Chandrakant Shipley [facility] POS [address] [facility] [address] [place] [address] 04/05/2016 11:57:03 04/05/2016 13:17:18 Tinnitus 84643047 H93.13 At this time the patient has bilateral tinnitus, most likely due to her bilateral hearing loss. Please see plan as described above. FG Allergic r hinitis caused by pollen 96847554 J30.1 At this time the patient has [...] Sensorineu ral hearing loss of bilateral ears 188775117 H90.3 At this time the patient comes [...] will follow up as needed. FG Dizziness 128811320 R42 At this time the patient also complains of an off balance feeling with walking up and down stairs, but does not have any other problems. We will see if this improves on nasal steroid spray. She had no further questions and will follow up as needed for now. FG [id number] Asha Bradford [facility] POS [address] [place] [address],[address] [place] [address] 04/05/2016 13:09:55 04/05/2016 13:12:09 Sensorineural hearing loss of bilateral ears 532523085 H90.3 [id number] Eugenio VANEGAS, Margy Valdivia [facility] [place] POS [address] [place] [address],[place] [address] [place] [address] 04/06/2016 12:09:16 04/06/2016 13:47:10 Gynecologic examination 52064329 Z01.419 Screening for malignant neoplasm of cervix 238309594 Z12.4 Menorrhagia 473872483 N9 2.0 History of urinary tract infection 9513576182 107 Z87.440 Surveillan ce of contraception 774327482 Z30.40 [id number] Eugenio VANEGAS, Margy Valdivia [facility] [place] POS [address] [place] [address],[address] [place] [address] 04/25/2016 17:48:13 04/25/2016 19:53:53 Menorrhagia 331526080 N92.0 Blood in urine 12790876 R31.9 [id number] Rhianna VANEGAS, Georgi Costa [facility] POS [address],[facility] [address] 05/08/2016 10:01:31 05/08/2016 12:08:23 Migraine 44335770 G43.909 Mixed anxi ety and depressive disorder 704530524 F41.8 Carpal davonte simon syndrome 53220707 G56.00 Insomnia 763452012 G47.0 0 Hand pain 01113668 M79.6 42 Vitamin D deficiency 347 54429 E55.9 [id number] Chuck VANEGAS, [facility] POS [address] [place] [address] 06/14/2016 12:22:40 06/14/2016 14:22:12 Microscopic hematuria 737061726 R31.21 she had 2-5 rbc on last ua done 04/26.17-has had full workup done in the past by another urologist and was negative but it was a while agovijay send urine for c/s and cytology-f ollow up for cystoscopy in office Renal colic 0766701 N23 she is having bilateral flank pain-previ ous urologist had checked a renal us but this may not merchandise pickup/receiving associate renal stones-jc l do ct scan for stone search prior to cystoscopy [id number] Rhianna VANEGAS, Georgi Costa [facility] [place] [facility] POS [address],[place] [address] 06/18/2016 10:33:06 06/18/2016 12:04:21 Mixed anxiety and depressive disorder 942121643 F41.8 [id number] Chuck VANEGAS, [facility] POS [address] [place] [address] 06/28/2016 12:09:59 06/28/2016 12:45:15 Blood in urine 03670988 R31.9 her cystoscopy shows mild chronic bullous cystitis and a diverticul um, mild grade 1 trabeculat ions-will start on suppressiv e dose macrodanti n for one monthfollo w up in 3mos [id number] Donnell VANEGAS, Luis Soliz [facility]TH[facility] POS [address] [place] [address] 06/29/2016 11:24:40 07/13/2016 10:46:48 Hand pain 55408032 M79.643 Carpal davonte simon syndrome 87900228 G56.01 G56.02 [id number] Donnell VANEGAS, Luis Soliz [facility] [place] POS [address] [place] [address] 07/13/2016 11:07:42 07/13/2016 13:24:50 Pain of wrist region 32439823 M25.531 Hand pain 12255596 M79.6 43 Carpal davonte simon syndrome 59773615 G56.01 G56.02 [id number] Rhianna VANEGAS, Georgi Costa [facility] POS [address] [place] [address] 07/16/2016 10:58:41 07/16/2016 11:42:57 Mixed anxiety and depressive disorder 820164720 F41.8 [id number] Donnell VANEGAS, Luis Soliz [facility] [place] [address] [facility] [address] 08/13/2016 11:24:07 08/13/2016 12:23:07 Hand pain 62402664 M79.641 Pain of wrist region 566 01619 M25.531 Carpal davonte simon syndrome 40328237 G56.01 G56.02 [id number] Donnell VANEGAS, Luis Soliz [facility] [place] [address] [place] [address] 09/20/2016 11:45:56 09/20/2016 14:44:21 Pain of wrist region 94722349 M25.531 M25.532 Hand pain 27708953 M79.6 41 Carpal davonte simon syndrome 02073064 G56.01 G56.02 [id number] Chuck VANEGAS, [facility] [place] [place] POS [address] [place] [address] 10/04/2016 11:54:33 10/04/2016 12:31:12 Blood in urine 00945160 R31.9 she had history of microhemat uriawas given 3mos of suppressiv e dose abxhas not seen any blood in urinewill check ua/culture Bladder mu scle dysfunction - overactive 780184158 N32.81 she goes to bathroom every 2 hours during day and 2 times at night, occ urge incontinen cetrial of myrbetriq Female uri nary stress incontinence 61425977 N39.3 -she does not require pads for the problemonl y occurs occasional ly with sneezingdi scussed treatment options- geoffrey will observe for now [id number] Donnell VANEGAS, Luis Soliz [facility] [place] POS [address] [facility],[address] [place] [address] 10/08/2016 09:47:26 10/08/2016 10:46:23 Pain of wrist region 46882271 M25.531 M25.532 Hand pain 57365610 M79.6 41 Carpal davonte simon syndrome 18196406 G56.01 G56.02 [id number] Donnell VANEGAS, Luis Soliz [facility] POS [address] [facility],[address] [place] [address] 11/09/2016 10:50:45 11/09/2016 12:33:48 Pain of wrist region 30738075 M25.531 M25.532 Neck pain 70000067 M54.2 Hand pain 62036279 M79.6 41 Carpal davonte simon syndrome 62203654 G56.01 G56.02 [id number] Rhianna VANEGAS, Georgi [facility] [address],[place] [address] 11/21/2016 10:22:19 12/11/2016 16:16:59 Low back pain 014674462 M54.5 Snoring 87469412 R06.83 [id number] Rhianna VANEGAS, Georgi [facility] [address],[place] [address] 01/10/2017 16:20:44 01/10/2017 17:19:55 Pain in left knee 9347724800 04573 M25.562 Depressive disorder 6818 9007 F32.89 Fatigue 48468311 R53.83 [id number] Chuck VANEGAS, [facility] - UROLOGY [facility] POS [address] [place] [address] 01/31/2017 11:27:16 01/31/2017 12:47:19 Bladder muscle dysfunction - overactive 519887717 N32.81 she goes to bathroom every 2 hours during day and 2 times at night, occ urge incontinen cemyrbetri q didn't help and wasn't covered Female uri nary stress incontinence 95857028 N39.3 she is more bothered by it latelywoul d like to try physical therapyref erral to at [facility] given [id number] Tete Brian DO [facility] POS [address] [place] [address] 03/08/2017 11:55:53 03/13/2017 00:11:33 Fatigue 69249584 R53.83 --concerns for fatigue and insomnia. Have discussed sleep hygeine techniques with patient and reviewed the sleep study with her. Discussed weight loss and controllin g nasal congestion .--Pt will attempt these and follow up in the next 3 months. Allergic rhinitis 195399 04 J30.9 --nasal congestion Obesity 406372071 E66.9 --discusse d keeping track of her calories and aiming to eat about 500 calories less then what she normally eats.--Pt should f/u in 3 months on weight loss. [id number] Tete Brian DO [facility] [address] [place] [address] 06/12/2017 10:00:03 06/12/2017 10:41:36 Active or passive immunization 693041476 Z23 Fatigue 81008165 R53.83 --cont use of breathe right strips and use nasal steroid. Allergic rhinitis 901191 04 J30.9 --nasal congestion continued. Increase cetirizine to 10 mg daily, but go back to 5 mg if she feels overly fatigued. Cont fluticason e and also start azelastine daily. Gastroesop hageal reflux disease 023480501 K21.9 [id number] Tete Brian DO [facility] POS [address] [place] [address] 08/12/2017 10:54:36 08/12/2017 11:48:10 Obesity 079248068 E66.9 --discusse d weight loss and diet again Insomnia 602317812 G47.0 0 --pt instructed to take amitriptyl ine daily.--Co unselled on possible side effects. RTC if insomnia worsens Neck pain 87198511 M54.2 --negative adsons test, negative spurling sign. Muscle spasm in b/l neck.--Giv en exercises for neck. OTC tylenol and ibuprofen. RTC as needed. Migraine 26577060 G43.90 9 [id number] Tete Brian DO [facility] [address] [place] [address] 02/11/2018 10:03:22 02/11/2018 10:50:04 Administration of influenza vaccine 77270700 Z23 Migraine 35140199 G43.90 9 --fioricet , amitriptyl ine and topiramate Insomnia 990298687 G47.0 0 --pt instructed to take amitriptyl ine daily.--Co unselled on possible side effects. RTC if insomnia worsens Environmental allergy 42 7967773 T78.49XA [id number] Nitin Laguerre MD [facility] [address] [place] [address] 04/02/2018 14:24:14 04/02/2018 15:10:58 Adult health examination 725408691 Z00.00 Migraine 49386182 G43.90 9 [id number] Timbo Mckeon DO [facility] POS [address] [facility] [facility] [place] [address] 12/11/2018 16:42:55 12/11/2018 17:56:44 Bladder muscle dysfunction - overactive 079034976 N32.81 she has urinary incontinen ce and requesting a refill of the detrol, this has helped her in the past Body mass index 30+ - obesity 812762779 Z68.39 The patient's current weight is 209# with a height of 5' 1.25 and a correspond ing BMI (Body Mass Index) of 39.2. The medical definition of Obesity is a BMI greater than 30. Your [place] Body Weight is approximat malinda about 116#. [...] migraine prophylaxi s and weight loss. Migraine [id number] G43.90 9 see the above plan [id number] Timbo Mckeon DO [facility]1 POS [address] [facility] [place] [place] [address] 12/18/2018 09:57:19 12/18/2018 11:37:10 Adult health examination 745670421 Z00.00 Female Complete Physical Exam: I discussed [...] exercise, diet. Achieve/ma intain ideal body weight. Pal[place] body weight is about 116 pounds,Adv anced directives : I gave the patient the form for LIVING WILL and health power of title attorney from the [place] state medical [employer], the patient does want to be resuscitat ed but the patient does not want to be maintained on chronic life support if there is little hope of meaningful recovery. Active or passive immunization 209602949 Z23 Flu vaccine today, She is up to date with the Tdap Body mass index 30+ - obesity 138771543 Z68.38 The patient's current weight is 206.75# with a height of 5' 1.25 and a correspond ing BMI (Body Mass Index) of 38.7. The medical definition of Obesity is a BMI greater than 30. Your [place] Body Weight is approximat malinda about 116#. A reduced calorie, reduced carbohydra te weight reduction diet as well as increased activity.. She has lost about 3# since the last visit Hyperhidro sis of axilla 603402586 L74.510 Drysol Jessie.ly to axilla once daily at first and then about three times per week, do not apply to fresh shaven skin. Elevated blood-pressure reading without diagnosis of hypertension 514145672 R03.0 I encouraged the patient to check the blood pressure and log the results. Please follow a reduced sodium diet and maintain/a chieve ideal body weight. [id number] Malka VANEGAS, Cali Carter [facility] [place] POS [address] [place] [address] 07/30/2019 10:48:16 07/30/2019 12:44:41 test positive 459510194 Z32.01 Mild hyper emesis gravidarum 87952009 O21.0 Reviewed and hyperemesi s with patient. Reviewed diet at length. Questions answered. Recommend consider hold PNV. Start vitamin B6, unisom. Ob dating u/s in 1 week. f/u 1wk. Amenorrhea 72583221 N91. 2 Reviewed findings, positive test. [id number] Malka VANEGAS, Cali Carter [facility] [place] POS [address] [place] [address] 08/04/2019 11:31:16 08/04/2019 13:34:46 Disorder of menstruation 666636573 N92.6 Ob u/s reviewed, show viable iup consistent with LMP dating. Reviewed with patient. Routine an tenatal care 939453143 Z34.81 Z3A.08 Venereal d isease screening 664977084 Z11.3 Advanced m aternal age 067630557 O09.899 [id number] Malka VANEGAS, [facility] [place] POS [address] [place] [address] 7 08/18/2019 11:25:44 08/18/2019 13:21:34 Advanced maternal age 584354295 O09.899 Routine an tenatal care 608099051 Z34.81 Z3A.08 Mild hyper emesis gravidarum 09009371 O21.0 mostly resolved [id number] Malka VANEGAS, [facility] [place] POS [address] [place] [address] 09/22/2019 13:57:14 09/22/2019 14:40:34 Multigravida of advanced maternal age 957751710 O09.522 Z3A.15 [id number] Malka VANEGAS, [facility] [place] POS [address] [place] [address] 10/20/2019 13:50:29 10/20/2019 15:17:10 Multigravida of advanced maternal age 505403776 O09.523 Z3A.19 [id number] Primitivo VANEGAS, Dickson [facility] POS [address] [place] [address] 10/27/2019 10:57:43 10/27/2019 14:41:15 Advanced maternal age 918449446 O09.899 expo sure to alcohol 882145953 O35.4XX9 expo sure to drug 016008298 O35.5XX9 Tolterodin e exposure [id number] Malka VANEGAS, [facility] [place] POS [address] [place] [address] 7 11/24/2019 14:02:44 11/24/2019 15:47:27 Advanced maternal age 758684519 O09.899 Z3A.24 [id number] Malka VANEGAS, [facility] [place] POS [address] [place] [address] 7 12/08/2019 13:27:12 12/08/2019 15:22:20 Gestational diabetes mellitus 96112593 O24.410 [id number] rEick VANEGAS, Thee Núñez [facility] POS [address] [place] [address] 12/17/2019 17:23:54 12/17/2019 17:24:51 [id number] Dickson Langford MD [facility] POS [address] [place] [address] 12/22/2019 08:47:44 12/22/2019 11:38:14 Glucose tolerance test outside reference range 532045963 R73.09 Gestationa l diabetes mellitus 96970442 O24.410 [id number] Malka VANEGAS, Cail [facility] [place] POS [address] [place] [address] 7 12/22/2019 15:50:31 12/23/2019 10:14:48 Gestational diabetes mellitus 34667312 O24.410 Advanced m aternal age 960360842 O09.899 Z3A.24 High risk care 669316818 O09.93 [id number] Malka VANEGAS, Cali Carter [facility] [place] POS [address] [place] [address] 7 01/05/2020 15:26:25 01/06/2020 12:30:32 Advanced maternal age 393841731 O09.899 Z3A.24 Gestationa l diabetes mellitus 90511182 O24.410 High risk care 393072376 O09.93 [id number] Erick VANEGAS, Thee Núñez [facility] - [facility] POS [address] [place] [address] 01/08/2020 14:24:24 01/08/2020 15:19:50 [id number] Malka VANEGAS, Cali Carter [facility] [place] POS [address] [place] [address] 7 01/12/2020 16:46:10 01/13/2020 11:56:27 Gestational diabetes mellitus 60968155 O24.410 Advanced m aternal age 076710640 O09.899 O09.893 [id number] Dickson Langford MD [facility] [place] [facility] POS [address] [place] [address] 5 01/19/2020 14:10:41 01/19/2020 16:23:42 Gestational diabetes mellitus 00834333 O24.410 On Insulin Gestationa l diabetes mellitus class A2 84712564 O24.414 [id number] Malka VANEGAS, Cali Carter [facility] [place] POS [address] [place] [address] 7 01/20/2020 12:35:55 01/20/2020 14:26:45 Multigravida of advanced maternal age 564056839 O09.523 Z3A.33 [id number] Milly Solorzano MD [facility] POS [address] [place] [address] 5 01/26/2020 14:26:55 01/26/2020 16:06:59 Gestational diabetes mellitus 84848484 O24.414 [id number] Jimmy VANEGAS, Madi Stevens [facility] [place] POS [address] [place] [address] 7 01/30/2020 10:58:36 01/30/2020 11:58:25 Routine care 975767575 Z34.83 Gestationa l diabetes mellitus class A2 26962645 O24.414 [id number] Dickson Langford MD [facility] POS [address] [place] [address] 02/02/2020 14:26:03 02/02/2020 17:02:34 Advanced maternal age 233736035 O09.899 Gestationa l diabetes mellitus 41466444 O24.410 On Insulin [id number] Milly Solorzano MD [facility] POS [address] [place] [address] 02/09/2020 14:24:13 02/09/2020 16:17:05 Advanced maternal age 968310100 O09.523 Gestationa l diabetes mellitus class A2 17310077 O24.414 [id number] Malka VANEGAS, Cali Carter [facility] [place] POS [address] [place] [address] 7 02/11/2020 12:30:53 02/11/2020 16:21:25 Advanced maternal age 169733328 O09.523 Z3A.36 Venereal d isease screening 078773014 Z11.3 Gestationa l diabetes mellitus 93072924 O24.410 [id number] Primitivo VANEGAS, Dickson [facility] EIGHT POS [address] [place] [address] 5 02/16/2020 14:33:12 02/16/2020 16:13:30 Gestational diabetes mellitus 72270054 O24.410 On Insulin [id number] Malka VANEGAS, Cali Carter [facility] [place] POS [address] [place] [address] 7 02/18/2020 14:57:15 02/18/2020 15:58:43 Routine care 634522889 Z34.81 Z3A.08 Advanced m aternal age 705824390 O09.523 Z3A.36 Gestationa l diabetes mellitus 92220262 O24.410 [id number] Rashad VANEGAS, Milly Reyes [facility] EIGHT POS [address] [place] [address] 5 02/23/2020 14:31:39 02/23/2020 16:18:32 Gestational diabetes mellitus 88815851 O24.414 [id number] Malka VANEGAS, Cali Caretr [facility] [place] POS [address] [place] [address] 7 02/25/2020 12:31:57 02/26/2020 10:45:52 Routine care 027066144 Z34.83 Z3A.38 Advanced m aternal age 699082342 O09.523 Z3A.36 Gestationa l diabetes mellitus 60186575 O24.410 [id number] Primitivo VANEGAS, Dickson [facility] POS [address] [place] [address] 5 03/01/2020 14:27:44 03/01/2020 15:58:06 Advanced maternal age 499693068 O09.523 O24.414 [id number] Malka VANEGAS, Cali Carter [facility] [place] POS [address] [place] [address] 7 03/16/2020 12:11:09 03/18/2020 11:31:10 care 154931468 Z39.0 Patient doing well. f/u 4wk. [id number] Malka VANEGAS, Cali Carter [facility] [place] POS [address] [place] [address] 7 04/13/2020 10:55:06 04/13/2020 14:58:26 care 123951418 Z39.2 Patient doing well. f/u 6mo annual exam [id number] Malka VANEGAS, Cali Carter [facility] [place] POS [address] [place] [address] 19472[address]167 7 04/27/2020 16:26:42 05/04/2020 15:07:19 depression 62338263 F53.0 Patient presents with c/o feeling down [...] unable to schedule behavoral health appointmen t. [id number] Salina Sejal ZHOU [facility] POS [address] [place] [address] 6[address]65[address] 7 05/13/2020 09:46:35 05/13/2020 10:31:08 [id number] SalinaSejal main LCPC MG Maddie ARROYO [facility] POS [address] [place] [address]362[address] 7 05/20/2020 09:48:07 05/20/2020 10:32:23 [id number] Malka VANEGAS, Cali Carter [facility] [place] POS [address] [place] [address] 9[address]99[address] 7 05/25/2020 11:11:20 05/25/2020 12:13:25 depression 76594149 F53.0 Patient presents f/u depression . Started [...] Sejal on 05/27 and will discuss referral. [id number] [facility] POS [address] [place] [address] 7 05/27/2020 09:48:13 05/27/2020 10:30:45 [id number] [facility] POS [address] [place] [address]277[address] 7 06/03/2020 09:50:44 06/03/2020 10:30:22 [id number] Malka VANEGAS, Cali Carter [facility] [place] POS [address] [place] [address] 91908[address]947 7 06/09/2020 10:32:07 06/09/2020 12:01:09 depression 08064758 F53.0 Patient presents f/u depression . Has been following up with [facility], has appointmen t 06/10. Referred to Psychiatry , trying to find provider in insurance. Currently on Zoloft 50 states helping a little. Side effects mostly resolved now. Will increase Zoloft to 100 mg. Reviewed with patient. Reviewed possible side effects. Denies feeling of harm to baby, self or others. [id number] Sejal Downing LCPC[facility] - BEHAVIORA [facility] POS [address] [place] [address]326[address] 7 06/10/2020 09:49:10 06/10/2020 10:30:56 [id number] [facility] POS [address] [place] [address] 71476-223 7 06/17/2020 09:53:23 06/17/2020 10:30:13 [id number] [facility] POS [address] [place] [address] 94386-[address] 7 06/24/2020 09:49:10 06/24/2020 10:30:19 [id number] Salina DISMANTLER, Sejal MIKE - BEHAVIORHodan [facility] POS [address] [place] [address] [phone] 7 07/01/2020 09:47:28 07/01/2020 10:31:01 [id number] Malka VANEGAS, Cali [facility] [place] POS [address] [place] [phone] 7 07/07/2020 09:57:10 07/07/2020 10:53:54 depression 08532140 F53.0 Patient presents f/u depression . Has been following up with [facility].Cur rently on Zoloft 100mg, states starting to feel slight better on medication . State still trying to find psychiatri st in her insurance. Continue current Zoloft 100mg. Continue f/u with [facility]. f/u 1mo. [id number] Salina Sejal ZHOU MIKE - BEHAVIORHodan [facility] POS [address] [place] [id number] 7 07/08/2020 09:49:04 07/08/2020 10:30:36 [id number] Salina MANNTRINH Sejal MIKE - BEHAVIORHodan [facility] POS [address] [place] [address]10[address]921 7 07/15/2020 09:50:40 07/15/2020 10:32:14 [id number] Salina DISMANTLERSejal TSANG MIKE - BEHAVIORHodan [facility] POS [address] [place] [address] [phone] 7 07/29/2020 09:46:54 07/29/2020 10:29:43 [id number] Malka VANEGAS, Cali [facility] [place] POS [address] [place] [phone] 7 08/04/2020 10:24:52 08/04/2020 11:40:55 depression 26977492 F53.0 Patient presents f/u depression . Currently on Zoloft 100mg, states started initially to feel slight better on medication but currently not much change. Currently followed by [facility]. States still trying to find psychiatri st in her insurance. Denies feeling of harm to self, baby or others. Discussed increasing Zoloft to 125 mg. Risk, benefits and possible side effects reviewed. Questions answered. Patient would like to increase Zoloft to 125 mg. Continue f/u with [facility]. f/u 1mo. [id number] Salina DISMANTLER, Sejal [facility] - BEHAVIORA [facility] POS [address] [place] [address] [phone] 7 08/05/2020 09:47:37 08/05/2020 10:30:03 [id number] Salina MANNPC, Sejal [facility] POS [address] [place] [address] [phone] 7 08/12/2020 09:47:50 08/12/2020 10:31:38 [id number] Salina ZHOU, Sejal [facility] POS [address] [place] [id number] 7 08/19/2020 09:48:32 08/19/2020 10:32:52 [id number] Salina ZHOU, [facility]jal [facility] POS [address] [place] [address] 63594-729 7 08/26/2020 09:50:04 08/26/2020 10:30:03 [id number] Abdifatah VANEGAS, Kandi [facility] POS [address] [place] [address] 08/30/2020 10:22:15 08/30/2020 12:17:12 Migraine 49038824 G43.909 - Sumatripta n compatible breastfeed ing- Consider starting topamax, will discuss further at psych clinic Insomnia 679647747 G47.0 0 - Discussed good sleep hygiene, meditation , and relaxation techniques - Recommende d CBT-i speech coach jessie- Start taking sertraline in the morning- May start melatonin at night, compatible w/ breastfeed ing Mixed anxi ety and depressive disorder 720583529 F41.8 F53.0 - Follow up in psych clinic tomorrow Adult heal th examination 150733968 Z00.01 39 yo F w/ PMH of depression , migraines, anxiety, and gestationa l diabetes presents for annual checkup. -Physical exam notable for obesity.-T dap is up to date. Received COVID vaccines x2. Recommend RTC for flu shot.-Heal thy food, aim for 1 hour of vigorous physical activity every day-Wear seat belt-[place] BID, go to a dentist twice a year-Spoke about risks of tobacco, alcohol, and recreation al drugs-Foll ow up [facility] for psych clinic, in 2 months for weight loss, and 1 year for annual physical Past pregn chilango history of gestational diabetes mellitus 209950179 Z86.32 - Screen for DM Fatigue 47866044 R53.83 - Currently experienci ng significan t fatigue, likely related to PPD and insomnia- Will check labs today Obesity 182175718 E66.9 -BMI 39.2-Discu ssed healthy eating, portion sizes, eliminatin g sugary beverages, limiting screen time, and one hour of vigorous physical activity daily. [id number] Abdifatah VANEGAS, Kandi Costa [facility] - [facility] POS [address] [place] [address] 08/31/2020 08:33:33 08/31/2020 14:44:00 depression 42593836 F53.0 39 yo F w/ PMH of [...] up w/ psych clinic in 3 weeks. [id number] Salina LCPC, Sejal [facility] - BEHAVIORA [facility] POS [address] [place] [address] 09/02/2020 09:48:40 09/02/2020 10:29:27 [id number] Abdifatah VANEGAS, Kandi [facility] POS [address] [place] [address] 09/12/2020 14:15:05 09/12/2020 15:26:54 depression 41313598 F53.0 39 yo F w/ PMH of depression , migraines, anxiety, and gestationa l diabetes presents for depression . - Tapered off zoloft, compliant w/ duloxetine 30mg qDaily- Discussed side effects of medication , including headache or stomach ache.- Medication compatible w/ breastfeed ing.- Consider adjunct Rexulti.- Worsening tinnitus- Follow up w/ psych clinic in 1 week. Bilateral tinnitus 81481 18063 102 H93.13 - Hx of b/l tinnitus since childhood- Worsened w/ antidepres gus- Will refer to ENT Dysfunctio n of bilateral eustachian tubes [id number] 370557 H69.93 - Hx of eustachian tube dysfunctio n- Restart daily flonase and nasal saline rinse [id number] Salina DISMANTLER, Sejal [facility] - [facility]IOR[facility] POS [address] [place] [address] 09/16/2020 09:49:08 09/16/2020 10:30:24 [id number] Abdifatah VANEGAS, Kandi Costa [facility] POS [address] [place] [address] 09/21/2020 09:11:46 09/21/2020 16:46:13 depression 20129005 F53.0 39 yo F w/ PMH of depression , migraines, anxiety, and gestationa l diabetes presents for depression . - Tapered off zoloft, compliant w/ duloxetine 30mg qDaily- Will start Rexulti 0.5mg daily, compatible w/ breastfeed ing.- Discussed side effects of medication , including headache or stomach ache.- Follow up w/ psych clinic in 2 week. Insomnia 560993513 G47.0 0 - Discussed good sleep hygiene, meditation , and relaxation techniques - Recommende d CBT-i speech coach jessie- Will start hydroxyzin e at bedtime, compatible w/ breastfeed ing [id number] Salina DISMANTLER, Sejal [facility] - BEHAVIORA [facility] POS [address] [place] [address] 09/23/2020 09:46:29 09/23/2020 10:30:36 [id number] Salina DISMANTLER, Sejal [facility] - BEHAVIOR[facility] POS [address] [place] [address] 09/30/2020 09:48:45 09/30/2020 10:31:06 [id number] Malka VANEGAS, Cali [facility] [place] POS [address] [place] [address] 7 10/01/2020 10:58:39 10/01/2020 12:29:28 Gynecologic examination 21119749 Z01.419 PAP, pelvic. F/u 1 yr prn. [id number] [facility] - [facility]ENC[facility] POS [address] [place] [address] 2020 09:40:56 10/26/2020 16:47:05 [id number] [facility] - [facility] POS [address] [place] [address] 2020 14:37:04 2020 16:19:39 depression 26468912 F53.0 39 yo F w/ PMH of [...] 25mg BID, on hydroxyzin e 50mg QHS [id number] [facility] - [facility]ENC[facility] POS [address] [place] [address] 10/13/2020 10:50:00 10/13/2020 11:34:19 Mixed anxiety and depressive disorder 491200062 F41.8 39 yo F w/ PMH of [...] weeks or sooner PRN Burn of skin 419405124 T 30.0 1.5 cm x 6 cm [...] fever, chills, discharge. Pt states understand ing [id number] Sejal Downing LCPC [facility] POS [address] [place] [address] 10/28/2020 09:47:58 10/28/2020 10:30:04 [id number] Yaya Casanova DO [facility] POS [address] [place] [address] 11/02/2020 09:30:11 11/02/2020 16:24:38 depression 59523938 F53.0 39 yo F w/ PMH of [...] Cymbalta 90mg if unable to start abilify [id number] Sejal Downing LCPC [facility] POS [address] [place] [address] 11/04/2020 09:50:31 11/04/2020 10:30:09 [id number] Sejal Downing LCPC [facility] POS [address] [place] [address]60-121 7 11/11/2020 09:48:49 11/11/2020 10:30:53 [id number] Salina ZHOU, Sejal ALISEMG - BEHAVIORA [facility] POS [address] [place] [phone] 7 11/18/2020 09:49:22 11/18/2020 10:29:35 [id number] Yaya Casanova DO HOSP - RESIDENCY POS [address] [place] [address] 9 11/30/2020 13:47:39 11/30/2020 15:58:53 Depressive disorder 31332875 F32.9 -Patient unable to take Abilify due to breastfeed ing-Recent thoughts of self harm, has scratched herself to the point of bleeding-R ecently on duloxetine 90mg, started 1-2 weeks ago-Contin ue duloxetine for now, may need to increase-F ollow up in 1mo Anxiety 59836894 F41.9 -Panic attacks recently with difficulty managing day to day activities for taking care of baby-Not on any medication for anxiety-pr escribed Hydroxyzin e 25mg BID PRN anxiety-Co ntinue 50mg at bedtime-Fo llow up in 1 mo [id number] Charleen Downing LCPCdi [facility] - [facility] POS [address] [place] [address] 7 12/09/2020 09:47:41 12/09/2020 10:29:55 [id number] Charleen Downing LCPCdi [facility] - [facility]IOR[facility] POS [address] [place] [address]329-[address] 7 12/16/2020 09:47:47 12/16/2020 10:29:40 [id number] Salina WINNIE, Sejal [facility] - [facility]IORA [facility] POS [address] [place] [address] 80975-569 7 12/23/2020 09:48:19 12/23/2020 10:30:21 [id number] Salina ZHOU, Sejal [facility] - [facility] POS [address] [place] [address]50-921 7 12/30/2020 09:49:49 12/30/2020 10:29:43 [id number] Juan VANEGAS, Estephanie [facility] POS [address] [place] [address] 01/04/2021 13:46:56 01/04/2021 15:28:07 Depressive disorder 23504737 F32.9 Pt feels mood has plateaued , trying to be more social. Will continue duloxetine at 90 mg qd. Anxiety 47666206 F41.9 Will continue hydroxyzin e at 50 mg qd. Pt improving sleep hygiene. [id number] [place] DISMANTLER, Sejal [facility] - [facility] POS [address] [place] [phone] 01/06/2021 09:49:09 01/06/2021 10:30:08 [id number] [place] DISMANTLER, Sejal [facility] - BE[facility]AVIORA L [facility] POS [address] [place] [phone] 01/13/2021 09:49:40 01/13/2021 10:32:17 [id number] [place] DISMANTLER, Sejal [facility] - BEHAVIORA L [facility] POS [address] [place] [phone] 01/20/2021 09:48:04 01/20/2021 10:30:49 [id number] [place] DISMANTLER, Sejal [facility] - BEHAVIORA L [facility] POS [address] [place] [phone] 02/03/2021 09:47:36 02/03/2021 10:30:04 [id number] [place] DISMANTLER, Sejal [facility] - BEHAVIORA L [facility] POS [address] [place] [phone] 02/10/2021 09:47:34 02/10/2021 10:30:14 [id number] [place] DISMANTLER, Sejal [facility] - BEHAVIORA L [facility] POS [address] [place] [phone] 02/17/2021 09:47:34 02/17/2021 10:30:21 [id number] [place] DISMANTLER, Sejal [facility] - BE[facility]AVIORA L [facility] POS [address] [place] [phone] 02/24/2021 09:49:25 02/24/2021 10:29:38 [id number] Juan VANEGAS, Estephanie [facility] POS [address] [phone] 03/01/2021 09:31:03 03/01/2021 16:09:19 Mixed anxiety and depressive disorder [id number] F41.8 Pt on stable dose of 90 mg duloxetine , 50 mg hydroxyzin e. Filled medication s 02/24. Pt to continue with therapist. [id number] [place] DISMANTLER, Sejal AHMG - BEHAVIORA [facility] POS [address] [place] [address] [phone] 7 03/03/2021 09:49:55 03/03/2021 10:29:44 [id number] [place] DISMANTLER, Sejal AHMG - BEHAVIORA [facility] POS [address] [place] [address] [phone] 7 03/10/2021 09:47:40 03/10/2021 10:30:59 [id number] Crystal VANEGAS, Letty [facility] POS [address] [address] [phone] 03/15/2021 11:45:54 03/15/2021 12:31:03 Immunization due [id number] Z28.3 [id number] [place] DISMANTLER, Sejal AHMG - BEHAVIORA [facility] POS [address] [place] [address] [phone] 7 03/24/2021 09:50:03 03/24/2021 10:29:58 [id number] [place] DISMANTLER, Sejal AHMG - BEHAVIORA [facility] POS [address] [place] [address] [phone] 7 04/07/2021 09:48:04 04/07/2021 10:29:37 [id number] Juan VANEGAS, Estephanie [facility] POS [address] [address] [phone] 04/12/2021 11:28:32 04/12/2021 16:12:02 Mixed anxiety and depressive disorder [id number] F41.8 Pt on stable dose of 90 mg duloxetine , 50 mg hydroxyzin e. Pt to continue with therapist. Pt still breastfeed ing. Mood and affect much improved per Dr. Espinal. [id number] [place] DISMANTLER, Sejal AHMG - BEHAVIORA L [facility] POS [address] [place] [address] [phone] 04/28/2021 09:48:26 04/28/2021 10:29:38 [id number] [place] DISMANTLER, Sejal [facility] - BEHAVIORA [facility] POS [address] [place] [address] [phone] 05/05/2021 09:48:14 05/05/2021 10:30:00 [id number] [place] DISMANTLER, Sejal AHMG - BEHAVIORA [facility] POS [address] [place] [address] [phone] 05/12/2021 09:49:49 05/12/2021 10:30:54 [id number] [place] DISMANTLER, Sejal AHMG - BEHAVIORA [facility] POS [address] [place] [address] [phone] 7 05/26/2021 09:47:27 05/26/2021 10:29:48 [id number] [place] DISMANTLER, Sejal AHMG - BEHAVIORA L [facility] POS [address] [place] [address] [phone] 7 06/16/2021 09:49:08 06/16/2021 10:29:49 [id number] [place] DISMANTLER, Sejal [facility] - BEHAVIORA [facility] POS [address] [place] [address] [phone] 07/14/2021 09:50:18 07/14/2021 10:30:10 [id number] Juan VNAEGAS, [facility] - RESIDENCY POS [address] [place] [phone] 07/26/2021 09:26:14 07/26/2021 15:15:31 Mixed anxiety and depressive disorder [id number] F41.8 Pt on stable dose of 90 [...] note, pt and family are moving to [facility] in September/October, will need to establish care locally at that time. [id number] Salina DISMANTLERSejal - DINA Reyes [facility] POS [address] [place] [address] 08/11/2021 09:47:30 08/11/2021 10:29:54 [id number] [place] DISMANTLER, Sejal MCKEON - DINA Reyes [facility] POS [address] [place] [address] 09/08/2021 09:48:56 09/08/2021 10:29:55 Health Concerns Section Related Observation LastModified by Organization Detai ls LastModified Time None Recorded Concern Status LastModified by Organization Details LastModified Time None Recorded Advance Directives Directive N: I gave her the form for t he Living Will and Health Power of [place], She does want to be resuscitated. She does not want to be maintained on chronic life support if there is little hope of a meaningful recovery. - 12/18/2018 Payers Insurance Date Sequence Insurance Name Policy Number Policy Mayorga Covered Member ID Mayorga Member ID Guarantor Name 09/11/2021 1 [facility] Alice Linn [id number] Alice Linn 06/07/2017 1 [facility] Alice Linn [id number] Alice Linn Notes Date Note Type Note Provider Name and Address Organization Details Recorded Time 01/04/2021 text/html ROS as noted in the HPI 40 y/o F with MHx mixed anxiety and depressive disorder, migraine in psych clinic for med check. Mixed anxiety and depressive disorder- feels that her depression is starting to plateau, medicine helping- trying to make social changes: every Saturday she goes to the football game for [...] to allow self-weaning Teddy VANEGAS, Semone [address] [facility],[address], [place], [address], [facility] 03/29/2021 16:05:30 03/01/2021 text/html ROS as noted in the HPI 40 y/o F with MHx mixed anxiety [...] tubal ligation or vasectomy for Teddy VANEGAS, Alexysone [address], [place], [address], [facility] 03/29/2021 14:47:01 04/12/2021 text/html ROS as noted in the HPI 40 y/o F with MHX depression, GERD, IBS, migraines in psych clinic for follow-up. Mixed anxiety and depressive disorder- feeling better: making effort to be more social, starting to pay bills in person, attended formal dinner with 's unit- daughter sick today, still - describes holiday season as bittersweet , thinking of relatives including great-grandfather who on son's birthday Teddy VANEGAS, Semone [address], [place], [address], [facility] 05/17/2021 14:43:47 07/26/2021 text/html 40 y/o F with MHx anxiety and depressive disorder in psych clinic for follow up. Mixed anxiety and depressive disorder- mood stable- feels that she now reacts better, reacted calmly when she had to call underwriting clerk to inform that daughter is sick- reports feeling static-y in head , dry mouth, having pins and needles in hands , wondering if it is medication side effect- weaned daughter- problems sleeping, taking melatonin- reassigned to [place], moving in September/October- oldest son will start at [employer] in the fall- excited about changes but also concerned about the stress Teddy VANEGAS, Semone [address] [facility],[address], [place], [address], [facility] 08/02/2021 15:47:04 OBGyn Episode Ob Episode Information Episode Created Date Number of Fetuses Patient Bloodtype Patient rh Status Prepregnancy Weight lbs Domestic Partner Domestic Partner Phone Father Name Scales Inspector Status 01/12/20 16 1 CLOSED Fetus Data First Name Last Name Admitted to NICU Weight (g) Sex Living Outcome Pediatric Complications Fetus ID Race Codes Race Delivery Type 3798.83 3 M Full Term [id number] Vaginal Suleiman Calculation Initial Suleiman Date Initial [...] Domestic Partner Domestic Partner Phone Father Name Scales Inspector Status 01/12/20 16 1 CLOSED Fetus Data First Name Last Name Admitted to NICU Weight (g) Sex Living Outcome Pediatric Complications Fetus ID Race Codes Race Delivery Type 3316.89 15 M Full Term [id number] Vaginal Suleiman Calculation Initial Suleiman Date Initial [...] Domestic Partner Domestic Partner Phone Father Name Scales Inspector Status 08/04/19 20 1 O Positive CLOSED Fetus Data First Name Last Name Admitted to NICU Weight (g) Sex Living Outcome Pediatric Complications Fetus ID Race Codes Race Delivery Type Meg 3061.74 6 F [id number] Vaginal Problems Problem Notes 02/03 poss expo sure COVID testintg 02/03 negGDM 3hr GTT pos On insultin, 01/20 increas 12 u qhsAMA, Elevated BMI Del 39+wk, Serial growth u/s. Weekly BPP, NST2/wkHarmony low riskH/O migraine TURNER, H/O depression, stopped all meds.[id number] tea Flu vaccine 01/05/20c/o pressureExposure to Detrol and Alcohol early first trim Problem Name Start Date End Date Resolution Snomed Code Not e Gestational diabetes mellitu s class A2 01/30/2020 [id number] Suleiman Calculation Initial Suleiman Date Initial Exam [...] in lbs Pre/Post Dialysis Refused With clothes 201.406931903171 BP Diastolic BP Location Tested BP Systolic BP Type 80 R arm 138 sitting Fetus Heart Rate Present Fetus Movement Comments Initial ob visit -In office ob dating us today - c/o nausea. Ob u/s reviewed, show viable iup consistent with LMP dating. Reviewed with patient. Nausea, cont. Able to tolerate some po. Reviewed [place], patient would like to proceed. Reviewed diet and course. f/u 2wk, [place] next visit. labs next visit. Flowsheet Date 08/18/2019 Jackson Score Blood Edema Fundus Height Fundus Units Glucose Ketones Leukocytes Nitrite Labor Signs Protein Cervic Dilation Cervic Effacement Cervic Station none neg Type Weight in lbs Pre/Post Dialysis Refused With clothes 202.565365384843 BP Diastolic BP Location Tested BP Systolic BP Type 78 R arm 130 sitting Fetus Heart Rate Present A 150 Fetus Movement Comments ob/fu -Initial ob labs drawn today- c/o pelvic cramping due to constipation on Saturday, Dr. Marquez prescribed Dulcolax (bisacodyl) 5 mg tablet,delayed release. Pt has been feeling better. No other c/o. labs today. [place] test reviewed. Patient would like to proceed. N/V much improved. PTL signs and symptoms reviewed. f/u 5wk. Flowsheet Date 09/22/2019 Jackson Score Blood Edema Fundus Height Fundus Units Glucose Ketones Leukocytes Nitrite Labor Signs Protein Cervic Dilation Cervic Effacement Cervic Station trace none neg Type Weight in lbs Pre/Post Dialysis Refused With clothes 205.149776858817 BP Diastolic BP Location Tested BP Systolic BP Type 80 L arm 132 sitting Fetus Heart Rate Present A 150 Fetus Movement Comments ob/fu - nausea has decreased . c/o pelvic pain when standing or shifting side to side in bed. Reviewed [place] neg. No other c/o. PTL signs and symptoms reviewed. Sched MFM u/s. f/u 4wk. Flowsheet Date 10/20/2019 Jackson Score Blood Edema Fundus Height Fundus Units Glucose Ketones Leukocytes Nitrite Labor Signs Protein Cervic Dilation Cervic Effacement Cervic Station 20 none neg Type Weight in lbs Pre/Post Dialysis Refused With clothes 208.42686242077 BP Diastolic BP Location Tested BP Systolic BP Type 78 R arm 120 sitting Fetus Heart Rate Present A 150 Fetus Movement A Yes Comments ob/fu - MFM scheduled on 10/26. c/o continues to have nausea, frequent crackling in her right ear, nasal congestion, mild nose bleeds. No other c/o. Exam neg, TM neg. recommend saline mist. [facility] u/s sched 10/26. PTL signs [...] in lbs Pre/Post Dialysis Refused With clothes 206.689851903554 BP Diastolic BP Location Tested BP Systolic BP Type 72 L arm 124 sitting Fetus Heart Rate Present A 150 Fetus Movement A Yes Comments Glucose and cbc labs today. Ingrown hair has been having some discomfort. Exam neg. 1hr gluc today. Reviewed [facility] u/s. PTL signs and symptoms reviewed. f/u 2wk. Flowsheet Date 12/08/2019 Jackson Score Blood Edema Fundus Height Fundus Units Glucose Ketones Leukocytes Nitrite Labor Signs Protein Cervic Dilation Cervic Effacement Cervic Station none neg Type Weight in lbs Pre/Post Dialysis Refused With clothes 208.842270998577 BP Diastolic BP Location Tested BP Systolic BP Type 70 L arm 118 sitting Fetus Heart Rate Present A 150 Fetus Movement A Yes Comments ob fu. No complains. Reviewe d 3hr gtt pos. refer to [facility], dietitian. Send glucometer, chem strips, [...] in lbs Pre/Post Dialysis Refused With clothes 207.277175313110 BP Diastolic BP Location Tested BP Systolic BP Type 72 L arm 124 sitting Fetus Heart Rate Present A 145 Fetus Movement A Yes Comments Pt c/o pain on hips when sle eping. Occ tightening muscle on ankle and foot. Denies other c/o. MFM u/s reviewed. 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 PTL signs and symptoms reviewed. f/u 2wk. Flowsheet Date 01/05/2020 Jackson Score Blood Edema Fundus Height Fundus Units Glucose Ketones Leukocytes Nitrite Labor Signs Protein Cervic Dilation Cervic Effacement Cervic Station 32 none neg Type Weight in lbs Pre/Post Dialysis Refused With clothes 205.254912475501 BP Diastolic BP Location Tested BP Systolic [...] in lbs Pre/Post Dialysis Refused With clothes 205.667167502439 BP Diastolic BP Location Tested BP Systolic [...] in lbs Pre/Post Dialysis Refused With clothes 205.293958278062 BP Diastolic BP Location Tested BP Systolic [...] in lbs Pre/Post Dialysis Refused With clothes 204.674054713430 BP Diastolic BP Location Tested BP Systolic [...] in lbs Pre/Post Dialysis Refused With clothes .778761344455 BP Diastolic BP Location Tested BP Systolic [...] in lbs Pre/Post Dialysis Refused With clothes 205.997495222981 BP Diastolic BP Location Tested BP Systolic [...] in lbs Pre/Post Dialysis Refused With clothes 201.652238888322 BP Diastolic BP Location Tested BP Systolic BP Type 80 L arm 120 sitting Fetus Heart Rate Present A 145 Fetus Movement A Yes Comments ob/fu - Pt was at [facility] L[facility] on Saturday due to having [...] in lbs Pre/Post Dialysis Refused With clothes 192.104403909812 BP Diastolic BP Location Tested BP Systolic [...] 09/22/2019 Toxoplasmosis precautions (cats/raw meat) [email or web address] 09/22/2019 Sabianism [email or web address] 09/22/2019 Hospital choice [email or web address] 09/22/2019 Blood [...]
[2025-04-17 11:39] VITALS: BP 139/90; PULSE 79; RESP 18; O2SAT 96
[2025-04-17 13:34] LABS: MANUAL DIFF FLAG NO
[2025-04-17 13:39] LABS: Hematocrit 38.6 % (37.0-47.0); Hemoglobin 13.6 g/dl (12.0-16.0); Imm Gran Abs Auto 0.06 X10*3/uL (0.00-0.03); Imm Gran Pct Auto 0.5 % (0.0-0.4); Lymphocytes Absolute Auto 1.3 X10*3/uL (1.2-4.9); Mean Corpuscular HGB Conc 35.2 g/dl (31.0-35.0); Mean Corpuscular Hemoglobin 30.3 pg (27.0-33.0); Mean Corpuscular Volume 86.0 fL (80.0-98.0); NRBC Abs Auto 0.000 X10*3/uL (0.0-0.012); NRBC Pct Auto 0.0 /100WBC (0.0-0.2); Platelet Count 258 X10*3/uL (160-400); Red Blood Count 4.49 X10*6/uL (4.20-5.50); White Blood Count 12.6 X10*3/uL (4.8-10.8)
[2025-04-17 13:58] LABS: Alanine Aminotransferase 24 U/L (0-31); Albumin Level 4.5 g/dL (3.5-5.0); Alkaline Phosphatase 66 U/L (39-117); Anion Gap 11 (12-20); Aspartate Amino Transferase 22 U/L (5-31); Blood Urea Nitrogen 10 mg/dL (9-16); Calcium 9.4 mg/dL (8.4-10.2); Carbon Dioxide 23 mmol/L (22-29); Chloride 107 mmol/L (96-108); Creatinine Clr Calc Pharmacy 91.1; Estimated Glomerular Filt Rate > 60; Potassium 4.3 mmol/L (3.3-5.1); Sodium 137 mmol/L (135-145); Total Protein 7.1 g/dL (6.5-8.0)
[2025-04-17 15:11] VITALS: BP 139/90; PULSE 79; RESP 18; TEMP 36.8; O2SAT 96
== END 2025-04-17 15:13 | disposition home or self-care (01) ==
PROVIDERS: Physician Assistant Medical; Emergency Provider Emergency Medicine; PCP Internal Medicine
DX: T78.40XA Allergy, unspecified, initial encounter (principal); T78.3XXA Angioneurotic edema, initial encounter; X58.XXXA Exposure to other specified factors, initial encounter
CPT/HCPCS: 36415; 80053; 85025; 96374; 96375; 99284; J1200; J1308; J2919; J3360

== ENCOUNTER → 2025-04-19 10:45 | Outpatient (BNV) | payer OTHER, SELFPAY | PROVIDERS: PCP Internal Medicine; Visit Provider Internal Medicine | DX: Z12.31 Encounter for screening mammogram for malignant neoplasm of breast (principal) | CPT/HCPCS: 77063; 77067 ==

== ENCOUNTER 2025-04-19 10:49 | Outpatient (REF) | payer OTHER, SELFPAY ==
--- OUTSIDE RECORDS SUMMARY | 2025-04-19 12:25 | XMS_ITS | Data Portability ---
Author Organization [facility]perri [facility], [facility] Imaging Reads - OP Address [address] [place] [address] Care Team Providers Care Derrick Boat Runner Name Role Phone NINA PENALOZA Primary Care [...] 6-8 weeks. This visit was conducted via [email or web address] website Quick Hit using both audio and video during the [...] This visit was conducted via telehealth website Quick Hit using both audio and video during the [...] This visit was conducted via telehealth website Quick Hit using both audio and video during the [...] 2021 022 [facility], [address], [place], [address], 15:13:01 duloxetine 60 mg capsule,del ayed release 2021 022 [facility], [address], [place], [address], 15:12:56 hydroxyzine HCl 50 mg tablet 2021 022 [facility], [address], [place], [address], 15:12:57 hydroxyzine HCl 50 mg tablet 2020 021 [facility], [address], [place], [address], 15:27:21 duloxetine 30 mg capsule,del ayed release 2020 021 [facility], [address], [place], [address], 15:27:17 duloxetine 60 mg capsule,del ayed release 2020 021 [facility], [address], [place], [address], 15:27:17 Patient TargetsNo targets recorded. Patient InstructionsNo instructions recorded. Reason for Referral None Reported. Problems Name Problem SNOMED Code Status Onset Date Resolution Date Notes Provider Name and Address Organization Details Recorded Time Multiple environm ental allergie s Active scotty sepulveda [facility] 6 12:23:04 Irritabl e bowel syndrome 44205480 Active celiac disease Ab testing Neg 11/03; improved w/ Gluten free diet scotty sepulveda [facility] 6 12:23:04 Gastroes ophageal reflux disease 624631221 Active scotty sepulveda [facility] 6 12:23:04 Mixed anxiety and depressi ve disorder 871929012 Active hx of post depressi on and took lexapro but felt poor response , wellbutr in was very neg side effects (bad vivid dreams of her hurting her family); zoloft was very good response but had to stop when breast feeding bad w/d (didn't wean) scotty sepulveda, [facility] 6 12:23:03 Migraine 55430466 [facility] 12:[facility]:03 Hiatal hernia 83193622 [facility] 12:23:04 Hemorrho ids 83460640 Completed 12/11/2018 tx'd w/ anusol-H C Timbo Mckeon DO [address], [place], [address] , [facility] 9 17:20:55 Female urinary stress incontin ence 78700744 [facility] 7 18:34:40 Insomnia 339663499 [facility] 12:23:03 Tinnitus 79447312 [facility] 12:23:04 Decrease d hearing 025209773 Completed 12/11/2018 Timbo Mckeon DO [address], [place], [address] , [place] [facility] 9 17:19:28 Reduced visual acuity 54673924 [facility] 6 12:23:04 Sensorin eural hearing loss of bilatera l ears 604870217 Active Asha Bradford [address], [place], [address] , [place] [facility] 6 13:11:25 Menorrha obi 799098451 Active Eugenio VANEGAS, Margy Valdivia [address], [place], [address] , [place] [facility] 7 22:56:04 Blood in urine 19539362 Completed 12/11/2018 LyndseyTimbo salcedo DO [address], [place], [address] , [place] - [facility] 9 17:19:34 Fracture of hand 64234237 Completed 200912/11/2018 Left LyndseyTimbo salcedo DO [address], [place], [address] , [place] [facility] 9 17:20:04 Pyelonep hritis 86328472 Completed 201412/11/2018 tx'd w/ Levaquin LyndseyTimbo salcedo DO [address], [place], [address] , [place] [facility] 9 17:19:51 Obesity 698543824 Active 2018 LyndseyTimbo salcedo DO [address], [place], [address] , [place] - [facility] 9 01:18:28 Pregnanc y 23314141 Completed 201903/16/2020 Aliyah sepulveda, [place] - [facility] 0 12:25:25 Gestatio nal diabetes mellitus class A2 90210693 Active 2019 Aliyah Julian null, [place] - [facility] 0 12:25:22 Gestatio nal diabetes mellitus class A2 32488717 Completed 2019 Aliyah Julian null, [place] - [facility] 0 12:25:22 Depressi ve disorder 92940548 Active 2020 Yaya Casanova DO [address], [place], [address] , [place] - [facility] 1 15:54:10 Notes:hx plantar fasciitis; hx L. [...] Test completed Malka VANEGAS, Cali Carter [address], [place], [address], [facility] 02/25/2020 13:33:54 02/18/20 20 Non-Stress Test completed Cali Ace MD [address], [place], [address], [facility] 02/18/2020 15:49:47 02/11/20 20 Non-Stress Test completed Malka VANEGAS, Cali Carter [address], [place], [address], [facility] 02/11/2020 15:03:18 01/12/20 20 Non-Stress Test completed Malka VANEGAS, Cali Carter [address], [place], [address], [place] [facility] 01/12/2020 18:21:04 12/19/19 19 Date of Last Pap Smear completed Timbo Mckeon DO [address], [place], [address], [facility] 12/24/2018 14:45:47 06/30/19 17 Ortho Corticosteroid Injection completed Vy Feliciano [facility] 06/29/2016 12:26:26 06/29/19 17 Cystoscopy (female) completed Chuck VANEGAS, [address], [place], [address], [facility] 06/28/2016 12:41:47 06/14/19 17 Bladder Scan completed Chuck VANEGAS, [address], [place], [address], [facility] 06/14/2016 13:22:58 04/05/20 16 Tympanometry completed Asha Bradford [address], [place], [address], [facility] 04/05/2016 13:11:04 04/05/20 16 Audiogram.old completed Asha Bradford [address], [place], [address], [facility] 04/05/2016 13:11:04 11/21/19 15 Other completed Georgi Moctezuma MD [address], [place], [address], [facility] 01/13/2016 00:18:30 10/21/19 15 Other completed Georgi Moctezuma MD [address], [place], [address], [facility] 01/13/2016 00:18:30 04/22/19 00 [place] Teeth Removed completed Georgi Moctezuma MD [address], [place], [address], [facility] 01/12/2016 22:50:32 Oral surgery procedure completed Dena Argueta [facility] 04/06/2016 12:36:17 Imaging Results None recorded. Procedure Notes None recorded. Medical Equipment None Reported. Allergies Allergen ID Allergen Name Allergen Category Reaction Reaction Severity Criticality Documentation Date Start Date Code Code System Note Provider Name and Address Organization Details Recorded Time 633720 latex environme nt,medica tion hives moderate Not available 01/12/2016 52257 91 RxNorm Georgi Moctezuma MD [address], [place], [address], [facility] 22:23:54 380268 acetamino phen / hydrocodo ne medicatio n other moderate Not available 04/05/2016 62118 2 RxNorm facia l numbn ess scotty sepulveda, [facility] 6 12:23:03 304726 Wellbutri n medicatio n Not available Not available Not available 06/18/2016 38552 RxNorm vivid dream s/fri ghten ing ; used w/ post partu m alivia Moctezuma MD, Georgi Costa [address] [facility],[address], [place], [address], [facility] 7 11:10:40 422844 adhesive tape environme nt,medica tion Not available Not available Not available 03/16/2020 Aliyah sepulveda, [facility] 0 12:21:24 Medications Name Sig Start Date [...] e 137 mcg (0.1 %) nasal spray [place] 1 spray every day by intranas al [...] Not Available Not Available Not Available FreeStyle Wasola Lite kit 03/16 completed Not Available Not [...] Smoking Status Never Smoker 12/11/18 [address]all[address] [facility], [facility] 12/11/2018 16:59:59 Do You Have An Advance Directive? No I Gave Her The Form For The Living Will And Health Power Of Poll Clerk, She Does Want To Be Resuscitated. She [...] COVID-19 While That Case Was Ill? No [email or web address] Information not available 07/30/2019 In The 14 Days Before Symptom Onset, Have You Had Close Contact With A Person Who Is Under Investigation For COVID-19 While That Person Was Ill? No [email or web address] Information not available 07/30/2019 Have You Been To An Area Known To Be High Risk For COVID-19? No [email or web address] Information not available 07/30/2019 What Type Of [...] not available 04/06/2016 Do You Have Any Holiness Beliefs That May Impact Your Health Care Decisions? No Does Not Follow Any Presybeterian Information not available 12/11/2018 Did You Hurt Yourself When You Fell In The Last Year? No 12/11/18 Information not available 04/06/2016 Education: 12 Information not available 12/11/2018 Marital Status Informatio n not available 01/12/2016 What Was The Date Of Your Most Recent Tobacco Screening? 09/12/2020 [email or web address] Information not available 09/15/2020 Are You Sexually [...] is your level of alcohol consumption? None [email or web address] Information not available 10/27/2019 Do you or have you ever used smokeless tobacco? 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 [employer] [email or web address] Information not available 09/15/2020 Do you or [...] Details LastModified Time Father Myocardial infarction 55 [email or web address] Not available 04/25 18:44:02 Father Hypertensive disorder Not available 2016 18:44:02 Father Hyperlipidem ia [email or web address] Not available 2016 18:44:02 Paternal Aunt Malignant neoplasm of cervix uteri [email or web address] Not available 07/2016 18:44:02 Paternal Aunt Dementia [email or web address] Not a vailable 04/25/2016 18:44:02 Mother Pyelonephrit [...] quadrivalent , PF 1 completed Maile sepulveda [facility] 03/15/2021 12:10:26 COVID-19, mRNA, LNP-S, PF, 30 mcg/0.3 mL dose 1 completed Savana sepulveda [facility] 08/30/2020 10:45:30 COVID-19, mRNA, LNP-S, PF, 30 mcg/0.3 mL dose 1 completed Savana sepulveda [facility] 08/30/2020 10:45:45 COVID-19, mRNA, LNP-S, PF, 30 mcg/0.3 mL dose 1 completed Maile sepulveda [facility] 03/15/2021 11:48:03 Influenza, split virus, trivalent, PF 8 cancelled patient objection Not Available [facility] 05/09/2019 02:33:30 Influenza, MDCK, quadrivalent , PF 8 completed Not Available [facility] 05/09/2019 03:23:32 Influenza, MDCK, quadrivalent , PF 9 completed Not Available [facility] 05/09/2019 03:01:50 Influenza, split virus, quadrivalent , PF 0 completed Savana sepulveda [facility] 01/05/2020 16:31:36 Tdap 3 completed Not Available [facility] 03/07/2020 09:20:47 Past Encounters Encounter ID Performer Location Encounter Start Date Encounter Closed Date Diagnosis/Indication Diagnosis SNOMED-CT Code Diagnosis ICD10 Code Diagnosis IMO Codes Diagnosis Note [id number] Rhianna VANEGAS, Georgi Costa [facility] POS [address],[place] [address] 01/12/2016 10:23:10 01/13/2016 12:09:34 Adult health examination 984289070 Z00.00 Hematology screening test 362543730 Z13.0 Hyperlipid emia screening 841431565 Z13.220 Endocrine/ metabolic screening 448900361 Z13.228 Mixed anxi ety and depressive disorder 872278967 F41.8 Tinnitus 08394516 H93.13 Decreased hearing 760861 001 H91.93 Reduced visual acuity 13 475334 H54.7 [facility] care 82994 5005 Z30.40 [id number] Lv lucas MD, Chandrakant Shipley [facility] [place] [facility] [address] [facility] [address] [place] [address] 04/05/2016 11:57:03 04/05/2016 13:17:18 Tinnitus 51297319 H93.13 At this time the patient has bilateral tinnitus, most likely due to her bilateral hearing loss. Please see plan as described above. FG Allergic r hinitis caused by pollen 69341890 J30.1 At this time the patient has [...] Sensorineu ral hearing loss of bilateral ears 488689394 H90.3 At this time the patient comes [...] will follow up as needed. FG Dizziness 757589780 R42 At this time the patient also complains of an off balance feeling with walking up and down stairs, but does not have any other problems. We will see if this improves on nasal steroid spray. She had no further questions and will follow up as needed for now. FG [id number] Asha Bradford [facility] [place] [facility] [address] [place] [address],[address] [place] [address] 04/05/2016 13:09:55 04/05/2016 13:12:09 Sensorineural hearing loss of bilateral ears 776305091 H90.3 [id number] Eugenio VANEGAS, Margy Valdivia [facility] [place] POS [address] [place] [address],[address] [place] [address] 04/06/2016 12:09:16 04/06/2016 13:47:10 Gynecologic examination 50647564 Z01.419 Screening for malignant neoplasm of cervix 361180104 Z12.4 Menorrhagia 946223923 N9 2.0 History of urinary tract infection 5343520453 107 Z87.440 Surveillan ce of contraception 840645356 Z30.40 [id number] Eugenio VANEGAS, Margy Valdivia [facility] [place] POS [address] [place] [address],[address] [place] [address] 04/25/2016 17:48:13 04/25/2016 19:53:53 Menorrhagia 361393562 N92.0 Blood in urine 73323633 R31.9 [id number] Rhianna VANEGAS, Georgi Costa [facility] POS [address],[place] [address] 05/08/2016 10:01:31 05/08/2016 12:08:23 Migraine 04785555 G43.909 Mixed anxi ety and depressive disorder 493936764 F41.8 Carpal davonte simon syndrome 53289208 G56.00 Insomnia 795205479 G47.0 0 Hand pain 76318744 M79.6 42 Vitamin D deficiency 347 49042 E55.9 [id number] Chuck VANEGAS, [facility] POS [address] [place] [address] 06/14/2016 12:22:40 06/14/2016 14:22:12 Microscopic hematuria 512479986 R31.21 she had 2-5 rbc on last ua done 04/26.17-has had full workup done in the past by another urologist and was negative but it was a while agovijay send urine for c/s and cytology-f ollow up for cystoscopy in office Renal colic 1087338 N23 she is having bilateral flank pain-previ ous urologist had checked a renal us but this 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 not 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-jc l do ct scan for stone search prior to cystoscopy [id number] Rhianna VANEGAS, Georgi Costa [facility] POS [address],[place] [address] 06/18/2016 10:33:06 06/18/2016 12:04:21 Mixed anxiety and depressive disorder 237109687 F41.8 [id number] Chuck VANEGAS, [facility] POS [address] [place] [address] 06/28/2016 12:09:59 06/28/2016 12:45:15 Blood in urine 43650233 R31.9 her cystoscopy shows mild chronic bullous cystitis and a diverticul um, mild grade 1 trabeculat ions-will start on suppressiv e dose macrodanti n for one monthfollo w up in 3mos [id number] Donnell VANEGAS, Luis Soliz [facility] POS [address] [place] [address] 06/29/2016 11:24:40 07/13/2016 10:46:48 Hand pain 64574169 M79.643 Carpal davonte simon syndrome 50429751 G56.01 G56.02 [id number] Donnell VANEGAS, Luis Soliz [facility] [place] POS [address] [place] [address] 07/13/2016 11:07:42 07/13/2016 13:24:50 Pain of wrist region 69956131 M25.531 Hand pain 68921580 M79.6 43 Carpal davonte simon syndrome 06849653 G56.01 G56.02 [id number] Rhianna VANEGAS, Georgi Costa [facility] POS [address],[place] [address] 07/16/2016 10:58:41 07/16/2016 11:42:57 Mixed anxiety and depressive disorder 488814738 F41.8 [id number] Donnell VANEGAS, Luis Soliz [facility] [place] POS [address] [place] [address] 08/13/2016 11:24:07 08/13/2016 12:23:07 Hand pain 06443384 M79.641 Pain of wrist region 566 26438 M25.531 Carpal davonte simon syndrome 53830059 G56.01 G56.02 [id number] Donnell VANEGAS, Luis Soliz [facility] [place] POS [address] [place] [address] 09/20/2016 11:45:56 09/20/2016 14:44:21 Pain of wrist region 22281986 M25.531 M25.532 Hand pain 41279237 M79.6 41 Carpal davonte simon syndrome 59827976 G56.01 G56.02 [id number] Chuck VANEGAS, [facility] [place] POS [address] [place] [address] 10/04/2016 11:54:33 10/04/2016 12:31:12 Blood in urine 26828807 R31.9 she had history of microhemat uriawas given 3mos of suppressiv e dose abxhas not seen any blood in urinewill check ua/culture Bladder mu scle dysfunction - overactive 195489597 N32.81 she goes to bathroom every 2 hours during day and 2 times at night, occ urge incontinen cetrial of myrbetriq Female uri nary stress incontinence 44240863 N39.3 -she does not require pads for the problemonl y occurs occasional ly with sneezingdi scussed treatment options- geoffrey will observe for now [id number] Donnell VANEGAS, Luis Soliz [facility] [place] POS [address] [facility],[address] [place] [address] 10/08/2016 09:47:26 10/08/2016 10:46:23 Pain of wrist region 10501877 M25.531 M25.532 Hand pain 60637611 M79.6 41 Carpal davonte simon syndrome 10289707 G56.01 G56.02 [id number] Donnell VANEGAS, Luis Soliz [facility] POS [address] [facility],[address] [place] [address] 11/09/2016 10:50:45 11/09/2016 12:33:48 Pain of wrist region 93918972 M25.531 M25.532 Neck pain 76626426 M54.2 Hand pain 70253750 M79.6 41 Carpal davonte siomn syndrome 00987510 G56.01 G56.02 [id number] Rhianna VANEGAS, Georgi [facility] [address],[place] [address] 11/21/2016 10:22:19 12/11/2016 16:16:59 Low back pain 819567080 M54.5 Snoring 35187904 R06.83 [id number] Rhianna VANEGAS, Georgi [facility] [address],[place] [address] 01/10/2017 16:20:44 01/10/2017 17:19:55 Pain in left knee 5557964670 06399 M25.562 Depressive disorder 5888 9007 F32.89 Fatigue 06885773 R53.83 [id number] Chuck VANEGAS, [facility] POS [address] [place] [address] 01/31/2017 11:27:16 01/31/2017 12:47:19 Bladder muscle dysfunction - overactive 477783107 N32.81 she goes to bathroom every 2 hours during day and 2 times at night, occ urge incontinen cemyrbetri q didn't help and wasn't covered Female uri nary stress incontinence 33280921 N39.3 she is more bothered by it latelywoul d like to try physical therapyref erral to at [facility] given [id number] Tete Brian DO [facility]1 POS [address] [place] [address] 03/08/2017 11:55:53 03/13/2017 00:11:33 Fatigue 31189554 R53.83 --concerns for fatigue and insomnia. Have discussed sleep hygeine techniques with patient and reviewed the sleep study with her. Discussed weight loss and controllin g nasal congestion .--Pt will attempt these and follow up in the next 3 months. Allergic rhinitis 650133 04 J30.9 --nasal congestion Obesity 712453720 E66.9 --discusse d keeping track of her calories and aiming to eat about 500 calories less then what she normally eats.--Pt should f/u in 3 months on weight loss. [id number] Tete Brian DO [facility]1 POS [address] [place] [address] 06/12/2017 10:00:03 06/12/2017 10:41:36 Active or passive immunization 479739059 Z23 Fatigue 87352249 R53.83 --cont use of breathe right strips and use nasal steroid. Allergic rhinitis 853259 04 J30.9 --nasal congestion continued. Increase cetirizine to 10 mg daily, but go back to 5 mg if she feels overly fatigued. Cont fluticason e and also start azelastine daily. Gastroesop hageal reflux disease 340831060 K21.9 [id number] Tete Brian DO [facility] AM#1 POS [address] [place] [address] 08/12/2017 10:54:36 08/12/2017 11:48:10 Obesity 739400444 E66.9 --discusse d weight loss and diet again Insomnia 012542640 G47.0 0 --pt instructed to take amitriptyl ine daily.--Co unselled on possible side effects. RTC if insomnia worsens Neck pain 47582490 M54.2 --negative adsons test, negative spurling sign. Muscle spasm in b/l neck.--Giv en exercises for neck. OTC tylenol and ibuprofen. RTC as needed. Migraine 59948772 G43.90 9 [id number] Tete Brian DO [facility] AM#1 [address] [place] [address] 02/11/2018 10:03:22 02/11/2018 10:50:04 Administration of influenza vaccine 62106199 Z23 Migraine 70082359 G43.90 9 --fioricet , amitriptyl ine and topiramate Insomnia 024239985 G47.0 0 --pt instructed to take amitriptyl ine daily.--Co unselled on possible side effects. RTC if insomnia worsens Environmental allergy 42 8260685 T78.49XA [id number] Nitin Laguerre MD [facility] AM#1 [address] [place] [address] 04/02/2018 14:24:14 04/02/2018 15:10:58 Adult health examination 999214677 Z00.00 Migraine 84839235 G43.90 9 [id number] Timbo Mckeon DO [facility]#1 POS [address] [facility] [facility] [place] [address] 12/11/2018 16:42:55 12/11/2018 17:56:44 Bladder muscle dysfunction - overactive 288876652 N32.81 she has urinary incontinen ce and requesting a refill of the detrol, this has helped her in the past Body mass index 30+ - obesity 191089896 Z68.39 The patient's current weight is 209# with a height of 5' 1.25 and a correspond ing BMI (Body Mass Index) of 39.2. The medical definition of Obesity is a BMI greater than 30. Your Joes Body Weight is approximat malinda about 116#. [...] migraine prophylaxi s and weight loss. Migraine 81163391 G43.90 9 see the above plan [id number] Timbo Mckeon DO [facility]#1 POS [address] [facility] [place] [address] 12/18/2018 09:57:19 12/18/2018 11:37:10 Adult health examination 597487584 Z00.00 Female Complete Physical Exam: I discussed [...] exercise, diet. Achieve/ma intain ideal body weight. Joes body weight is about 116 pounds,Adv anced directives : I gave the patient the form for LIVING WILL and health power of deputy prosecuting attorney from the [place] [employer], the patient does want to be resuscitat ed but the patient does not want to be maintained on chronic life support if there is little hope of meaningful recovery. Active or passive immunization 049559510 Z23 Flu vaccine today, She is up to date with the Tdap Body mass index 30+ - obesity 736777872 Z68.38 The patient's current weight is 206.75# with a height of 5' 1.25 and a correspond ing BMI (Body Mass Index) of 38.7. The medical definition of Obesity is a BMI greater than 30. Your Joes Body Weight is approximat malinda about 116#. A reduced calorie, reduced carbohydra te weight reduction diet as well as increased activity.. She has lost about 3# since the last visit Hyperhidro sis of axilla [id number] L74.510 Drysol Jessie.ly to axilla once daily at first and then about three times per week, do not apply to fresh shaven skin. Elevated blood-pressure reading without diagnosis of hypertension 876970201 R03.0 I encouraged the patient to check the blood pressure and log the results. Please follow a reduced sodium diet and maintain/a chieve ideal body weight. [id number] Malka VANEGAS, Cali Carter [facility] - [employer] [employer] DIRECTOR [place] POS [address] [place] [address] 07/30/2019 10:48:16 07/30/2019 12:44:41 test positive 116468462 Z32.01 Mild hyper emesis gravidarum 84309695 O21.0 Reviewed and hyperemesi s with patient. Reviewed diet at length. Questions answered. Recommend consider hold PNV. Start vitamin B6, unisom. Ob dating u/s in 1 week. f/u 1wk. Amenorrhea 10925561 N91. 2 Reviewed findings, positive test. [id number] Malka VANEGAS, Cali Carter [facility] - [employer] DIRECT[employer] [place] [facility] [address] [place] [address] 08/04/2019 11:31:16 08/04/2019 13:34:46 Disorder of menstruation 350846289 N92.6 Ob u/s reviewed, show viable iup consistent with LMP dating. Reviewed with patient. Routine an tenatal care 443688320 Z34.81 Z3A.08 Venereal d isease screening 269645379 Z11.3 Advanced m aternal age 792849852 O09.899 [id number] Malka VANEGAS, [facility] - FIELD REPRESENTATIVES DIRECTOR [place] POS [address] [place] [address] 7 08/18/2019 11:25:44 08/18/2019 13:21:34 Advanced maternal age 628956901 O09.899 Routine an tenatal care 545482925 Z34.81 Z3A.08 Mild hyper emesis gravidarum 62223124 O21.0 mostly resolved [id number] Malka VANEGAS, [facility] - FIELD REPRESENTATIVES DIRECTOR [place] POS [address] [place] [address] 7 09/22/2019 13:57:14 09/22/2019 14:40:34 Multigravida of advanced maternal age 192001204 O09.522 Z3A.15 [id number] Malka VANEGAS, [facility] - FIELD REPRESENTATIVES DIRECTOR [place] POS [address] [place] [address] 7 10/20/2019 13:50:29 10/20/2019 15:17:10 Multigravida of advanced maternal age 034905110 O09.523 Z3A.19 [id number] Primitivo VANEGAS, Dickson [facility] POS [address] [place] [address] 5 10/27/2019 10:57:43 10/27/2019 14:41:15 Advanced maternal age 081298003 O09.899 expo sure to alcohol 343484421 O35.4XX9 expo sure to drug 292805209 O35.5XX9 Tolterodin e exposure [id number] Malka VANEGAS, [facility] - FIELD REPRESENTATIVES DIRECTOR [place] POS [address] [place] [address] 7 11/24/2019 14:02:44 11/24/2019 15:47:27 Advanced maternal age 782774575 O09.899 Z3A.24 [id number] Malka VANEGAS, [facility] - FI[employer] REPRESENTATIVES DIRECTOR [place] POS [address] [place] [address] 7 12/08/2019 13:27:12 12/08/2019 15:22:20 Gestational diabetes mellitus 38758647 O24.410 [id number] Erick VANEGAS, Thee Núñez [facility] [place] POS [address] [place] [address] 12/17/2019 17:23:54 12/17/2019 17:24:51 [id number] Dickson Langford MD [facility] MATERNAL [employer]IC [facility] POS [address] [place] [address] 12/22/2019 08:47:44 12/22/2019 11:38:14 Glucose tolerance test outside reference range 381832971 R73.09 Gestationa l diabetes mellitus 69074202 O24.410 [id number] Malka VANEGAS, Cali [facility] - FI[employer] REPRESENTATIVES DIRECTOR [place] POS [address] [place] [address] 7 12/22/2019 15:50:31 12/23/2019 10:14:48 Gestational diabetes mellitus 27975300 O24.410 Advanced m aternal age 978489948 O09.899 Z3A.24 High risk care 214640517 O09.93 [id number] Malka VANEGAS, Cali Carter [facility] - [employer] DIRECT[employer] [place] POS [address] [place] [address] 7 01/05/2020 15:26:25 01/06/2020 12:30:32 Advanced maternal age 671220612 O09.899 Z3A.24 Gestationa l diabetes mellitus 99656341 O24.410 High risk care 308317758 O09.93 [id number] Erick VANEGAS, Thee Núñez [facility] [employer] INE [place]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 Effacement Cervic Station trace none neg Type Weight in lbs Pre/Post Dialysis Refused With clothes 205.453594822448 BP Diastolic BP Location Tested BP Systolic BP Type 80 L arm 132 sitting Fetus Heart Rate Present A 150 Fetus Movement Comments ob/fu - nausea has decreased . c/o pelvic pain when standing or shifting side to side in bed. Reviewed [place] neg. No other c/o. PTL signs and symptoms reviewed. Sched MFM u/s. f/u 4wk. Flowsheet Date 10/20/2019 Jackson Score Blood Edema Fundus Height Fundus Units Glucose Ketones Leukocytes Nitrite Labor Signs Protein Cervic Dilation Cervic Effacement Cervic Station 20 none neg Type Weight in lbs Pre/Post Dialysis Refused With clothes 208.09635973731 BP Diastolic BP Location Tested BP Systolic BP Type 78 R arm 120 sitting Fetus Heart Rate Present A 150 Fetus Movement A Yes Comments ob/fu - MFM scheduled on 10/26. c/o continues to have nausea, frequent crackling in her right ear, nasal congestion, mild nose bleeds. No other c/o. Exam neg, TM neg. recommend saline mist. [facility] u/s sched 10/26. PTL signs and [...] in lbs Pre/Post Dialysis Refused With clothes 206.680342112273 BP Diastolic BP Location Tested BP Systolic BP Type 72 L arm 124 sitting Fetus Heart Rate Present A 150 Fetus Movement A Yes Comments Glucose and cbc labs today. Ingrown hair has been having some discomfort. Exam neg. 1hr gluc today. Reviewed [facility] u/s. PTL signs and symptoms reviewed. f/u 2wk. Flowsheet Date 12/08/2019 Jackson Score Blood Edema Fundus Height Fundus Units Glucose Ketones Leukocytes Nitrite Labor Signs Protein Cervic Dilation Cervic Effacement Cervic Station none neg Type Weight in lbs Pre/Post Dialysis Refused With clothes 208.619441565527 BP Diastolic BP Location Tested BP Systolic BP Type 70 L arm 118 sitting Fetus Heart Rate Present A 150 Fetus Movement A Yes Comments ob fu. No complains. Reviewe d 3hr gtt pos. refer to [facility], dietitian. Send glucometer, chem strips, lancets. [...] in lbs Pre/Post Dialysis Refused With clothes 207.404710502577 BP Diastolic BP Location Tested BP Systolic BP Type 72 L arm 124 sitting Fetus Heart Rate Present A 145 Fetus Movement A Yes Comments Pt c/o pain on hips when sle eping. Occ tightening muscle on ankle and foot. Denies other c/o. MFM u/s reviewed. 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 PTL signs and symptoms reviewed. f/u 2wk. Flowsheet Date 01/05/2020 Jackson Score Blood Edema Fundus Height Fundus Units Glucose Ketones Leukocytes Nitrite Labor Signs Protein Cervic Dilation Cervic Effacement Cervic Station 32 none neg Type Weight in lbs Pre/Post Dialysis Refused With clothes 205.827572648082 BP Diastolic BP Location Tested BP Systolic [...] in lbs Pre/Post Dialysis Refused With clothes 205.107233959975 BP Diastolic BP Location Tested BP Systolic [...] in lbs Pre/Post Dialysis Refused With clothes 205.223845016564 BP Diastolic BP Location Tested BP Systolic [...] in lbs Pre/Post Dialysis Refused With clothes 204.630212980569 BP Diastolic BP Location Tested BP Systolic [...] in lbs Pre/Post Dialysis Refused With clothes .618541412924 BP Diastolic BP Location Tested BP Systolic [...] in lbs Pre/Post Dialysis Refused With clothes 205.804723092659 BP Diastolic BP Location Tested BP Systolic [...] in lbs Pre/Post Dialysis Refused With clothes 201.223517851865 BP Diastolic BP Location Tested BP Systolic BP Type 80 L arm 120 sitting Fetus Heart Rate Present A 145 Fetus Movement A Yes Comments ob/fu - Pt was at [facility] L[facility] on Saturday due to having contractions- [...] in lbs Pre/Post Dialysis Refused With clothes 192.610806947899 BP Diastolic BP Location Tested BP Systolic [...] 09/22/2019 Toxoplasmosis precautions (cats/raw meat) [email or web address] 09/22/2019 [facility] [email or web address] 09/22/2019 Hospital choice [email or web address] 09/22/2019 Blood [...]
== END 2025-04-19 10:50 ==
LOC: HO.MAMMO 10:49
PROVIDERS: PCP Internal Medicine; Visit Provider Internal Medicine
DX: Z12.31 Encounter for screening mammogram for malignant neoplasm of breast (principal)
CPT/HCPCS: 77063; 77067